=== PATIENT | female | born 1945 | race Caucasian/White ===

== ENCOUNTER 2017-01-08 15:02 | Emergency (ER) | payer MEDICARE, BC ==
[~2017-01-08] VITALS: Ht 172.7 cm; Wt 57.2 kg
[~2017-01-08 15:02] MED LIST: /CIPR75TA OR; /SUCR1TA OR; /THIA10TA OR; ACET-654 PO; ACTIVITY; BACITAB3 PO; BACTROBAN TOP; BENA25TA4 PO; CARA1TAB2 PO; CLIN1CAP5 PO; DIET; EUCECRE2 TOP; FLUO-144 TOP; FOLI1TAB OR; FOLLOW UP; KCL OR; KEFL250C OR; KLOR1TAB69 PO; LACT10SO OR; LASI20TA OR; LEVA750T PO; METF500T PO; MULTIVIT OR; NIZO2SHA TOP; OMEP40CA2 PO; OMEPPOW18 OR; TRAM50TA2 PO; ZYVO100T PO; [UNRECOGNIZED DRUG - REMARK]
[2017-01-08] MEDS ORDERED: LINE600T (15:15)
[2017-01-08 16:30] LABS: BASO % 0.5 % (0.0-1.0); EOS # 0.2 K/mm3 (0.0-0.50); EOS % 3.9 % (0.0-3.0); LARGE UNSTAINED CELL # 0.1 K/mm3 (0.0-0.4); LARGE UNSTAINED CELL % 1.4 % (0.0-4.0); LYMPH # 1.1 K/mm3 (1.5-4.5); LYMPH % 19.7 % (24.0-44.0); MEAN CORPUSCULAR HEMOGLOBIN 29.3 pg (27.0-33.0); MONO # 0.4 K/mm3 (0.0-0.8); MONO % 7.1 % (0.0-5.0); NEUTROPHILS # 3.7 K/mm3 (1.8-7.7); NEUTROPHILS % 67.4 % (36.0-66.0); PLATELET COUNT, AUTOMATED 107 k/mm3 (150-450); RED CELL DISTRIBUTION WIDTH 13.6 % (11.5-14.5); WHITE BLOOD COUNT 5.4 K/mm3 (4.0-10.0)
[2017-01-08 16:41] LABS: ANION GAP 9 MEQ/L (8-16); BLOOD UREA NITROGEN 10 MG/DL (7-18); CALCIUM LEVEL 8.1 MG/DL (8.8-10.2); CARBON DIOXIDE LEVEL 24 MEQ/L (21-32); CHLORIDE LEVEL 104 MEQ/L (98-107); GLOMERULAR FILTRATION RATE > 60.0 (>39); GLUCOSE, FASTING 155 MG/DL (83-110); POTASSIUM SERUM 3.6 MEQ/L (3.5-5.1); SODIUM LEVEL 137 MEQ/L (136-145)
[2017-01-08] MEDS ORDERED: CEFTAROLINE FOSAMIL 600 MG in D5W MINI-BAG PLUS 50 ML IV ONE (16:45)
[2017-01-08] MEDS ORDERED: BACT800T5 PO (18:08)
[2017-01-08] MEDS ORDERED: BACTRIM 160MG/800MG DS TAB PO ONE (18:15)
[2017-01-08 18:20] VITALS: BP 122/63
== END 2017-01-08 18:28 | disposition home or self-care (01) ==
LOC: M ED 15:59
DX: L03.116 Cellulitis of left lower limb (principal); E11.40 Type 2 diabetes mellitus with diabetic neuropathy, unspecified; I87.2 Venous insufficiency (chronic) (peripheral); K21.9 Gastro-esophageal reflux disease without esophagitis; M54.5 Low back pain; K74.60 Unspecified cirrhosis of liver; Z90.49 Acquired absence of other specified parts of digestive tract

== ENCOUNTER → 2017-03-14 | Outpatient (CLI) | payer MEDICARE ==
[~2017-03-14] MED LIST changes: -ACET-654 PO; +ACET1TAB17 PO; +BACITAB PO; -BACITAB3 PO; +BACT800T5 PO; -CARA1TAB2 PO; +CARA1TAB6 PO; +CLIN150C14 PO; -CLIN1CAP5 PO; +LINE600T; -METF500T PO; +METF500T13 PO
--- NOTE | 2017-03-14 12:49 | REP ---
UPPER EXTREMITY DUPLEX VENOUS ULTRASOUND: HISTORY: Venous insufficiency, ulcer at the knee. Chronic venous hypertension left lower extremity. The deep veins are anechoic on two-dimensional scanning and fully compressible. Color flow imaging is homogeneous. Spectral Doppler interrogation demonstrates intact respiratory variation in flow normal manual augmentation of flow. There is no evidence of deep vein thrombosis. REFLUX STUDY: Pulsatile Doppler waveforms are noted in the deep and superficial systems likely related to right heart dysfunction. Minimal reflux is observed in the anterior accessory and collateral vein off the accessory proximally. No other reflux is appreciated. The greater saphenous vein measures 4.9 mm in AP dimension proximally at the saphenofemoral junction, 3.5 mm at midthigh, and 4.5 mm at the knee. The lesser saphenous vein measures 1.3 mm. IMPRESSION: Minimal reflux. Pulsatile venous waveforms question right heart dysfunction. No evidence of deep vein thrombosis. Signed by Owen Jay MD 03/14/2017 12:58 P
== END ==
LOC: M RAD 10:52
PROVIDERS: ATTEND Surgery
DX: I87.312 Chronic venous hypertension (idiopathic) with ulcer of left lower extremity (principal)

== ENCOUNTER → 2017-04-09 | Outpatient (REF) | payer OTHER, BC | LOC: M LAB REF 13:27 | PROVIDERS: ATTEND Surgery | DX: L56.8 Other specified acute skin changes due to ultraviolet radiation (principal) ==

== ENCOUNTER → 2018-04-22 | Outpatient (CLI) | payer MEDICARE ==
[2018-04-22 10:50] LABS: BASO % 0.8 % (0.0-1.0); EOS # 0.3 10^3/uL (0.0-0.50); EOS % 11.7 % (0.0-3.0); HEMATOCRIT 34.6 % (36.0-47.0); HEMOGLOBIN 11.2 g/dl (12.0-15.5); IMMATURE GRANULOCYTE % 0.4 % (0-3.0); LYMPH # 0.9 10^3/uL (1.5-4.5); LYMPH % 37.7 % (24.0-44.0); MEAN CORPUSCULAR HEMOGLOBIN 28.1 pg (27.0-33.0); MEAN CORPUSCULAR HGB CONC 32.4 g/dl (32.0-36.5); MEAN CORPUSCULAR VOLUME 86.7 fl (80.0-96.0); MONO # 0.2 10^3/uL (0.0-0.8); MONO % 9.6 % (0.0-5.0); NEUTROPHILS % 39.8 % (36.0-66.0); RED BLOOD COUNT 3.99 10^6/uL (4.00-5.40); RED CELL DISTRIBUTION WIDTH 13.3 % (11.5-14.5); WHITE BLOOD COUNT 2.4 10^3/uL (4.0-10.0)
[2018-04-22 11:07] LABS: AMMONIA < 10 uMOL/L (<32)
[2018-04-22 11:20] LABS: PLATELET COUNT, AUTOMATED 78 10^3/uL (150-450); POSITIVE DIFF POS FLAG
[2018-04-22 11:21] LABS: IMMATURE PLATELET FRACTION % 3.4 % (0.0-9.6); PLATELET F 2.6
[2018-04-22 11:27] LABS: ALBUMIN 3.7 GM/DL (3.2-5.2); ALBUMIN/GLOBULIN RATIO 0.97 (1.00-1.93); ALKALINE PHOSPHATASE 67 U/L (45-117); ALT/SGPT 19 U/L (12-78); ANION GAP 7 MEQ/L (8-16); AST/SGOT 18 U/L (7-37); BILIRUBIN,TOTAL 0.4 MG/DL (0.2-1.0); BLOOD UREA NITROGEN 19 MG/DL (7-18); CALCIUM LEVEL 9.2 MG/DL (8.8-10.2); CARBON DIOXIDE LEVEL 29 MEQ/L (21-32); CHLORIDE LEVEL 108 MEQ/L (98-107); CHOLESTEROL LEVEL 149 MG/DL (<200); CHOLESTEROL RISK RATIO 2.483 (<5); CREATININE FOR GFR 0.75 MG/DL (0.55-1.30); GLOMERULAR FILTRATION RATE > 60.0 (>39); GLUCOSE, FASTING 124 MG/DL (70-100); HDL CHOLESTEROL 60 MG/DL (>40); LDL CHOLESTEROL 74.6 MG/DL (<100); NON-HDL-C 89 MG/DL; POTASSIUM SERUM 4.5 MEQ/L (3.5-5.1); SODIUM LEVEL 144 MEQ/L (136-145); TOTAL PROTEIN 7.5 GM/DL (6.4-8.2); TRIGLYCERIDES LEVEL 72 MG/DL (<150)
== END ==
LOC: M LAB 09:47
DX: K76.9 Liver disease, unspecified (principal); E11.9 Type 2 diabetes mellitus without complications; Z13.220 Encounter for screening for lipoid disorders
CPT/HCPCS: 82140

== ENCOUNTER 2018-08-04 12:30 | Inpatient (IN) | payer MEDICARE ==
[~2018-08-04] VITALS: Ht 170.2 cm; Wt 53.7 kg
[~2018-08-04 12:30] MED LIST changes: -ACET1TAB17 PO; +ACET1TAB55 PO; +ENOXAPARIN 40 MG/0.4 ML SYRINGE (J1650) SC SCH; -ZYVO100T PO; +ZYVO1TAB PO
[2018-08-04] MEDS ORDERED: SERT25TA PO (12:55)
[2018-08-04 13:27] LABS: INR 1.21; PROTHROMBIN TIME 15.5 SECONDS (12.1-14.4)
[2018-08-04 13:29] LABS: BASO % 0.2 % (0.0-1.0); HEMATOCRIT 35.3 % (36.0-47.0); HEMOGLOBIN 11.2 g/dl (12.0-15.5); LYMPH # 0.5 10^3/uL (1.5-4.5); LYMPH % 8.9 % (24.0-44.0); MEAN CORPUSCULAR HEMOGLOBIN 26.9 pg (27.0-33.0); MEAN CORPUSCULAR HGB CONC 31.7 g/dl (32.0-36.5); MEAN CORPUSCULAR VOLUME 84.7 fl (80.0-96.0); MONO # 0.6 10^3/uL (0.0-0.8); MONO % 10.7 % (0.0-5.0); NEUTROPHILS # 4.5 10^3/uL (1.8-7.7); NEUTROPHILS % 79.3 % (36.0-66.0); PLATELET COUNT, AUTOMATED 128 10^3/uL (150-450); RED BLOOD COUNT 4.17 10^6/uL (4.00-5.40); WHITE BLOOD COUNT 5.7 10^3/uL (4.0-10.0)
[2018-08-04 13:39] LABS: ALBUMIN 2.9 GM/DL (3.2-5.2); ALT/SGPT 15 U/L (12-78); BILIRUBIN,TOTAL 0.6 MG/DL (0.2-1.0); BLOOD UREA NITROGEN 22 MG/DL (7-18); CALCIUM LEVEL 8.9 MG/DL (8.8-10.2); CARBON DIOXIDE LEVEL 28 MEQ/L (21-32); CHLORIDE LEVEL 110 MEQ/L (98-107); GLOMERULAR FILTRATION RATE > 60.0 (>39); GLUCOSE, FASTING 543 MG/DL (70-100); POTASSIUM SERUM 3.6 MEQ/L (3.5-5.1); SODIUM LEVEL 149 MEQ/L (136-145); TOTAL PROTEIN 7.2 GM/DL (6.4-8.2)
[2018-08-04] MEDS: MORPHINE 2 MG/ML 1ML SYRINGE (J2270) IV PRN ×2 (13:40→14:41)
[2018-08-04] MEDS ORDERED: ONDANSETRON 4MG/2ML VIAL (J2405) IV ONE (13:45)
[2018-08-04] MEDS ORDERED: DIPH25CA PO (13:46)
[2018-08-04] MEDS ORDERED: POTA1TAB23 PO (13:46)
[2018-08-04] MEDS ORDERED: NS 1,000 ML IV SCH (14:00)
[2018-08-04] MEDS ORDERED: HumuLIN R (REGULAR) INSULIN (NovoLIN R) **100U/ML** PER UNIT IV ONE (14:00)
--- NOTE | 2018-08-04 14:07 | REP ---
Chest x-ray: Single AP view. History: Question preop. Comparison chest x-ray: July 08, 2014. Findings: There is diffuse osteopenia. Heart size is normal. The aorta is calcific and a little tortuous. The lungs are symmetrically aerated. No infiltrate is seen. There is minimal linear fibrosis in the apices bilaterally. Pleural angles are sharp. Impression: No acute disease. Mild biapical fibrotic changes. Electronically Signed by Owen Jay MD 08/04/2018 04:18 P
--- NOTE | 2018-08-04 14:08 | REP ---
Right hip and pelvis: Four views. History: Trauma. Findings: Four views of the pelvis and right hip are presented. Bony pelvic ring is intact. No left hip fracture is seen. There is diffuse osteopenia. Sacrum and SI joints are intact. There is an angulated intertrochanteric fracture of the right hip with apex anterior angulation and apex lateral angulation. There is some comminution and slight override. Vascular calcification is noted. Impression: Comminuted angulated fracture intertrochanteric segment right hip. Osteoporosis. Electronically Signed by Owen Jay MD 08/04/2018 04:19 P
[2018-08-04] MEDS ORDERED: DEXTROSE 50% 50 ML SYRINGE IV PRN (15:00)
[2018-08-04] MEDS ORDERED: GLUCAGON FOR INJ 1 MG VIAL (J1610) SC PRN (15:00)
[2018-08-04] MEDS ORDERED: GLUCOSE 4 GM CHEW TABLET PO PRN (15:00)
--- NOTE | 2018-08-04 16:14 | REP ---
CT right hip without contrast: History: Trauma. Comparison is made with today's radiographs showing a comminuted intertrochanteric fracture. Technique: Helical scanning is acquired. 3 mm axial images are reformatted. Coronal and sagittal multiplanar re-formation images are generated reviewed. 3-D surface rendered images are generated and reviewed. CT findings: There is a comminuted intertrochanteric fracture of the right hip with significant varus deformity. Some impaction. There are greater and lesser trochanteric fracture fragments. There is a bases cervical component to the fracture as well. The remainder the femoral head and neck appear as an intact fragment. There is mild osteoarthritis at the hip articulation. There is associated soft-tissue swelling. No pelvic fracture is appreciated. Impression: Comminuted intertrochanteric fracture with impaction and varus. Electronically Signed by Owen Jay MD 08/04/2018 04:06 P
--- NOTE | 2018-08-04 16:59 | REP ---
REASON FOR EXAM: Pain after trauma. Only two views of the knee were attempted and there is no AP view only an oblique and lateral view with the predominant feature of the radiograph being femoral rather than the knee joint. As such, a tibial plateau fracture can not be ruled out by this exam since the knee joint was not in the center of the radiograph. Two limited views suggest chronic changes. There is a fabella. IMPRESSION:Exam limitations and findings as described above. Four views of the knee with the knee being the center of the radiograph recommended. Electronically Signed by Remberto Gupta DO 08/04/2018 06:15 P
[2018-08-04] MEDS ORDERED: HumaLOG INSULIN (NovoLOG) PER UNIT SC SCH (17:30)
--- NOTE | 2018-08-04 18:45 | ECGEPIP ---
Stationary ECG Study [facility] - ED Test Date: 2018-08-04 Pat Name: SAMSON SINGH Department: Room: [place] [address] Gender: F Extractions Technologist: nevaeh : 1945 Requested By: Odessa Roger Order Number: [id number] Reading MD: Connor Kruger Measurements Intervals Fiatt Rate: 88 P: 85 [place]: 126 QRS: 72 QRSD: 82 T: 29 QT: 372 QTc: 452 Interpretive Statements SINUS RHYTHM NONSPECIFIC T-WAVE ABNORMALITY NO PRIORS FOR COMPARISON Electronically Signed On 08-04-2018 18:45:15 EST by Connor Kruger
[2018-08-04 22:00] VITALS: BP 147/62
[2018-08-04] MEDS: NS 0.45% 1,000 ML IV SCH (22:08)
[2018-08-04] MEDS: MORPHINE 4 MG/ML 1ML VIAL/SYRINGE (J2270) IV PRN (22:31)
[2018-08-05] VITALS (9 sets, daily range): BP systolic 112–155; BP diastolic 48–93
[2018-08-05] MEDS: NS 0.45% 1,000 ML IV SCH ×4 (02:15→23:57)
[2018-08-05] MEDS: HumaLOG INSULIN (NovoLOG) PER UNIT SC SCH ×4 (05:56→23:57)
[2018-08-05] MEDS: MORPHINE 4 MG/ML 1ML VIAL/SYRINGE (J2270) IV PRN ×4 (05:56→23:13)
[2018-08-05] MEDS ORDERED: VANCOMYCIN HCL 1,000 MG, VIAL MATE ADAPTER 1 EACH in D5W 250 ML IV SCH (06:00)
[2018-08-05 06:52] LABS: BASO % 0.1 % (0.0-1.0); EOS % 0.1 % (0.0-3.0); HEMATOCRIT 31.1 % (36.0-47.0); HEMOGLOBIN 9.9 g/dl (12.0-15.5); LYMPH # 0.9 10^3/uL (1.5-4.5); LYMPH % 12.1 % (24.0-44.0); MEAN CORPUSCULAR HEMOGLOBIN 27.3 pg (27.0-33.0); MEAN CORPUSCULAR HGB CONC 31.8 g/dl (32.0-36.5); MEAN CORPUSCULAR VOLUME 85.9 fl (80.0-96.0); MONO # 0.6 10^3/uL (0.0-0.8); MONO % 7.7 % (0.0-5.0); NEUTROPHILS # 5.6 10^3/uL (1.8-7.7); NEUTROPHILS % 79.6 % (36.0-66.0); PLATELET COUNT, AUTOMATED 100 10^3/uL (150-450); RED BLOOD COUNT 3.62 10^6/uL (4.00-5.40); WHITE BLOOD COUNT 7.1 10^3/uL (4.0-10.0)
--- NOTE | 2018-08-05 06:52 | HPE ---
DATE OF ADMISSION: 08/04/2018 This a 73-year-old female with past medical history of diabetes, gastroesophageal reflux disease (GERD), and depression who presents to the emergency room after sustaining a fall on the day of admission. She fell on her right hip and sustained a right laceration and was brought to the ER for evaluation. In the ER she had an x-ray which showed a right intertrochanteric fracture. Incidentally, the patient was also found to be hypernatremic and started on IV fluids. Orthopedics was called and the patient will be getting an open reduction internal fixation (ORIF) done today. The patient at this time is awake, alert and oriented times three and she only complains of pain in her right hip. She denies any chest pain or shortness of breath. PAST MEDICAL HISTORY: Diabetes. Depression. GERD. PAST SURGICAL HISTORY: Cholecystectomy. ALLERGIES: She had drug allergies to: 1. BACITRACIN. 2. CIPROFLOXACIN. 3. CLINDAMYCIN. 4. NEOMYCIN. 5. PENICILLIN. FAMILY HISTORY: Noncontributory. SOCIAL HISTORY: The patient denies tobacco, alcohol or illicit drugs. HOME MEDICATIONS: - Tylenol as needed - diphenhydramine 25 mg orally every 6 hours as needed - metformin 500 mg orally twice daily - omeprazole 40 mg orally daily - potassium 10 mEq orally daily - sertraline 25 mg orally daily - sucralfate 1 gram orally a.c. REVIEW OF SYSTEMS: Negative in all 10 major systems except what has been mentioned in the history of present illness. VITALS: Blood pressure is 139/63, heart rate is 88 and regular, respiratory rate is 16, temperature 97, oxygen saturation is 96% on room air. Head is atraumatic, normocephalic. Neck supple, no jugular venous distention (JVD). Lungs are clear to auscultation. S1 and S2 audible, no murmurs appreciated. Abdomen soft, positive bowel sounds. There is no pedal edema. Skin examination: On the left leg there are multiple healing ulcers, which is chronic with erythema surrounding the ulcers. There is also a right elbow skin tear. Neurologic exam: Patient awake, alert and oriented times three. LABS: WBC 5.7, hemoglobin 11.2, hematocrit 35.3, platelets 128,000. Sodium 149, potassium 3.6, chloride 110, CO2 28, BUN 22, creatinine 0.8, glucose is 545. 12 lead EKG shows normal sinus rhythm and no acute ST abnormalities. PT is 15.5, INR is 1.21. IMPRESSION: 1. Right intertrochanteric fracture. 2. Hypernatremia. 3. Left leg cellulitis. PLAN: Patient is to be admitted to the medical surgical floor. Will start the patient on half normal saline at 100 mL/hour for the hypernatremia. For the cellulitis I am going to start IV doxycycline 100 mg IV twice a day and will give her morphine 2 mg IV every 2 hours as needed for pain. Orthopedics has been consulted and the patient is going to the operating room today. She is medically optimized and moderate risk for a moderate risk procedure. Postoperatively will continue her preadmission medications.
[2018-08-05 07:02] LABS: BLOOD UREA NITROGEN 16 MG/DL (7-18); CALCIUM LEVEL 8.2 MG/DL (8.8-10.2); CARBON DIOXIDE LEVEL 24 MEQ/L (21-32); CHLORIDE LEVEL 114 MEQ/L (98-107); CREATININE FOR GFR 0.55 MG/DL (0.55-1.30); GLOMERULAR FILTRATION RATE > 60.0 (>39); GLUCOSE, FASTING 295 MG/DL (70-100); POTASSIUM SERUM 3.4 MEQ/L (3.5-5.1); SODIUM LEVEL 147 MEQ/L (136-145)
[2018-08-05] MEDS ORDERED: ceFAZolin 1GM INJ (J0690 PER 500MG) As Ordered ONE (07:28)
[2018-08-05] MEDS ORDERED: KETAMINE HCL 200 MG/20 ML VIAL As Ordered ONE ×2 (08:13→15:31)
[2018-08-05] MEDS ORDERED: MIDAZOLAM INJ 2 MG/2 ML VIAL (J2250) As Ordered ONE (08:13)
[2018-08-05] MEDS ORDERED: fentaNYL 100 MCG/2 ML INJECTION (J3010) As Ordered ONE (08:13)
[2018-08-05] MEDS ORDERED: PHENYLEPHRINE INJ 10MG/ML VIAL (J2370) As Ordered ONE (08:14)
[2018-08-05] MEDS ORDERED: ePHEDrine SULFATE 25 MG/5 ML(5MG/ML) SYRINGE As Ordered ONE (08:21)
[2018-08-05] MEDS ORDERED: PHENYLephrine HCL 500 MCG/5 ML (100MCG/ML) SYRINGE (J2370) As Ordered ONE (08:21)
[2018-08-05] MEDS ORDERED: PROPOFOL 200 MG/20 ML VIAL As Ordered ONE (08:40)
[2018-08-05] MEDS ORDERED: LIDOCAINE 2% INJ 100 MG/5 ML SDV (FOR ANES.) As Ordered ONE (08:40)
--- NOTE | 2018-08-05 09:14 | REP ---
C-ARM VIEWS RIGHT HIP: Six intraoperative C-arm views of the right hip are performed during placement of an intramedullary deshawn, proximal anchor and metallic screw for a fracture of the proximal right femur. The structures are well aligned. 1 minute 6 seconds fluoroscopy time utilized for the procedure. Electronically Signed by Bari Cobos MD 08/05/2018 07:43 P
--- NOTE | 2018-08-05 09:16 | CR ---
DATE OF CONSULTATION: 08/04/2018 REASON FOR CONSULTATION: Right intertrochanteric hip fracture. HISTORY OF PRESENT ILLNESS: This is a 73-year-old elderly female who took a mechanical fall dealing with her small dog at her apartment here in [place], fell and had pain and deformity, unable to ambulate because of pain and soreness in the right leg and hip area. No loss of consciousness. Did not strike her head of any significant degree. She was transferred by emergency medical services (EMS) to [facility] and evaluated by Dr. Kulkarni and found to have a hip fracture, and I was called to treat the hip fracture and the hospitalist will be admitting her because of her other multiple medical comorbidities. She only complains of soreness and pain on the right hip area. PAST MEDICAL HISTORY: Significant for chronic liver disease and cirrhosis, esophageal varices, chronic dermatitis in both lower extremities from venous stasis ulcerations, diabetes, anxiety disorder an anemia. PAST SURGICAL HISTORY: She has had multiple debridements from the wound clinic over the past year and a half ago with Dr. Burgos. Cholecystectomy. MEDICATIONS CURRENTLY: - Benadryl - fluocinolone - ketoconazole - linezolid - metformin - omeprazole - potassium - inhalers - Bactrim SOCIAL HISTORY: She does not smoke. She does not drink alcohol presently. She lives alone. Her only family members are two cousins in the [facility]. She is single. She has a supportive community at her apartment complex here in [place]. Dr. Parra cares for her medically. REVIEW OF SYSTEMS: Health survey is otherwise unremarkable, other than she has had a history of skin cancer cared for by Dr. Radha Salazar in the past. FAMILY HISTORY: She has not been . Does not have any children. Mother at the age of 91 with chronic obstructive pulmonary disease (COPD). Father at age 42 from throat cancer. PHYSICAL EXAMINATION: When I examined her, she is an elderly pleasant female, quite alert and oriented. There is no temperature. Blood pressure is 146/63. Pulse of 94. Respirations 21, and most recently 16. HEENT exam is benign. She wears glasses. Neck was nontender. She can elevate her arms up overhead without obvious pain, deformity or crepitance involving her shoulders, arms, elbows, forearms, wrists or hands. There is a small scratch and/or abrasion on the lateral aspect of the right elbow. Right leg is held adducted and clearly shortened, and internally rotated actually. She has a strong dorsalis pedis pulse dorsally with normal sensation to light touch dorsum and on the plantar surface of her foot. Her left foot has multiple areas of full thickness granulating wounds of various stages, but there is no pitting edema in her left lower extremity. There is some mild erythema around the ankle wounds. I asked her if she has a history of neuropathy and she says not, and otherwise when I touch her right lower extremity she feels the sensation is intact, but there is evidence of brawny discoloration and brownish pigmentation secondary to having venous stasis ulcerations and venous stasis dermatitis in the past in the right lower extremity. Her x-rays of the right hip show a very comminuted displaced, shortened intertrochanteric fracture of the right hip. CT with reconstruction show the same. LABORATORY STUDIES: White count of 5.7, hematocrit 35.3, platelets 128. ProTime 15.5, INR 1.21. Chemistries: Sodium 149, potassium 3.6, chloride 110, BUN 22, creatinine 0.8, sugar is elevated at 543. Liver function tests appear to be within normal limits. Bilirubin of 0.6, AST of 7, ALT 15, alkaline phosphatase of 84, albumin was a bit low at 2.9, total protein 7.2. I discussed this with the hospitalist, Dr. Engel and he feels that she should be medically optimized pending final review of the rest of her laboratory studies for surgery. She is not on any anticoagulation. IMPRESSION: Highly comminuted right intertrochanteric hip fracture in an elderly pleasant female. I discussed the treatment options for her and we normally recommend we fix these type of fractures for comfort and for ability to be early mobilized out of bed to prevent the sequela of prolonged bed rest, but doing surgery does carry the risk however of having surgery, including infection, damage to nerves and blood vessels, phlebitis, embolism, heart attack, , anesthetic complications, amongst others. She understands that. She would like to get this cared for an is anxious to get it fixed because she is quite uncomfortable so we plan to proceed. She signed the consent form for the surgery and potential need for blood transfusion, which I discussed with her as well. One view of the plain films x-rays are discussed with her. There may be a small area of lytic area or it could be just the fracture orientation, but if there is any question I told her we may be sending some of the bone marrow from that arrow to the pathologist to make sure it is not a pathologic fracture and I will be reviewing that x-ray with the radiologist as well.
[2018-08-05] MEDS ORDERED: LR 1,000 ML IV SCH (09:30)
[2018-08-05] MEDS ORDERED: HYDROMORPHONE HCL 0.5 MG/ 0.5 ML SYRINGE (J1170 PER 1) IV PRN (09:30)
[2018-08-05] MEDS ORDERED: ONDANSETRON 4MG/2ML VIAL (J2405) IV PRN (09:30)
[2018-08-05] MEDS ORDERED: PERCOCET 5MG/325MG TAB PO PRN (09:30)
[2018-08-05] MEDS ORDERED: fentaNYL 100 MCG/2 ML INJECTION (J3010) IV PRN (09:30)
[2018-08-05] MEDS ORDERED: VANCOMYCIN HCL 1,000 MG, VIAL MATE ADAPTER 1 EACH in D5W 250 ML IV ONE (11:00)
--- NOTE | 2018-08-05 11:20 | PHACANCOPD ---
PHARMACY VANCOMYCIN DOSING Pt Demographics Demographics Patient Age:73 , Weight:53.700 , Gender: female Adjusted Body Weight Date: 08/05/18, Adjusted Body Weight: Kg Events Past 24 Hours Events Past 24 Hours: YES: Pending Diagnostics; NO: Dialysis, Diuretic Therapy, Change in CrCl, Fever, Elevation in WBC, Pending Procedures, Other Vancomycin Vancomycin Target Ranges: 15-20 mcg/ml Vancomycin Load Y/N: Yes Load Dose Date Time Vancomycin Load Dose: 1G Date: 08/05 Time: 1100 Vancomycin Dose Date: 08/05/18. Current Vancomycin Dose: Intermittent Dosing?: No Labs Labs Vital Signs Label Value Date Time Patient Temperature 97.2 degrees F 08/05/18 0925 Temperature Source Temporal 08/05/18 0925 Patient Temperature 97.8 degrees F 08/05/18 0855 Temperature Source Temporal 08/05/18 0855 Patient Temperature 98.6 degrees F 08/05/18 0600 Temperature Source Temporal 08/05/18 0600 Item Value Date Time White Blood Count 7.1 10^3/uL 08/05/18 0621 White Blood Count 5.7 10^3/uL 08/04/18 1251 Creatinine 0.80 MG/DL 08/04/18 1251 Creatinine 0.55 MG/DL 08/05/18 0621 Micro Microbiology 08/04/18 Blood Culture, Received Pending 08/04/18 Blood Culture - Preliminary, Resulted 08/04/18 Wound Culture, Received Pending Creatinine Clearance Date:08/05/18. Creatinine Clearance: . Assessment and Plan Maintaining Current Dose?: Yes Reason for dose change: No Dose Change Pharmacist Note Pharmacist Note Date: 08/05/18. Pharmacist note: Pt's preliminary blood test resulted with gram (+) rods, chains, and clusters. Gram+ clusters could be a sign of staph infxn. Pt. placed on Vanco for MRSA coverage until cultures finalized. Pt. has no MRSA hx with us but was on Vanco back in 2014. I loaded the patient with 1G Vanco @1100 followed by Vanco 750mg IV Q12H@2300. I have scheduled a trough before the 3rd dose. We will continue to monitor and adjust dose as needed. JADE FRIEDMAN PHARMACY Aug 05, 2018 11:20
--- NOTE | 2018-08-05 17:09 | RO ---
DATE OF PROCEDURE: 08/05/2018 PREPROCEDURE DIAGNOSIS: Right intertrochanteric hip fracture. POSTPROCEDURE DIAGNOSIS: Right intertrochanteric hip fracture. PROCEDURE: Open reduction internal fixation (ORIF) right hip fracture with a short right trochanteric femoral nail. SURGEON: Dr. Paras Lainez SHEET [employer]OP FOREMAN: Yasmine Telles ANESTHESIA: Spinal. COMPLICATIONS: None. ESTIMATED BLOOD LOSS: 75 mL. DESCRIPTION OF PROCEDURE: She is already on intravenous (IV) doxycycline. She was taken to the operating room. A spinal anesthetic was induced, placed on the fracture table, and after appropriate time-out fracture was reduced on the fracture table under fluoroscopic guidance. Then, the right hip area was carefully prepped and draped in the usual sterile fashion. A second time-out was then performed. Then, a small one inch incision was made proximal to the greater trochanter. Bovie cautery was used to coagulate crossing vessels down to tensor fascia. Awl was placed on the greater trochanter, and the ball-tip guide deshawn placed down, confirmed in both AP and lateral planes, there was good position. The proximal reamer was utilized and then the short nail inserted. The drill guide for the cephalomedullary part of the implant was then placed after making an incision in the skin with a long knife handle and advancing the sleeve to the lateral femoral cortex and the guide pin drilled through the center of the femoral head, confirmed on the AP and lateral planes. Measured at 90 mm, reamed to 90 mm, the 90 mm cephalomedullary screw was placed and locked proximally. Then, the drill sleeve was then placed for the distal interlock screw. A small skin incision was made. The drill sleeve advanced to the lateral femoral cortex. Then, under fluoroscopic imaging, the drill was drilled, measured at 34 mm. A 34 mm screw was placed. We confirmed there was good position of the fracture and the hardware in the AP and lateral planes on the fluoroscope. We then irrigated the wounds, closed the tensor fascia with interrupted #1 PDS suture, subdermal tissues were closed with interrupted #2-0 PDS sutures, skin was closed with khnag, covered by Adaptic and OpSite dressings. Then, she was transferred off the fracture table to the recovery room in stable condition. There were no intraoperative complications.
--- NOTE | 2018-08-05 17:21 | IPN ---
DATE: 08/05/2018 SUBJECTIVE: The patient is seen and examined in the room today after the hip replacement. The patient denies any acute complaints. No events are reported. OBJECTIVE: VITAL SIGNS: Temperature is 97.9, pulse is 77, respiratory rate 16, blood pressure is 128/56, pulse oximetry is 100% with 2 liters nasal cannula. GENERAL: The patient is alert and awake, no signs of acute distress. HEENT: Positive bilateral temporal wasting. LUNGS: Clear to auscultation bilaterally. CARDIOVASCULAR: Positive S1, S2, regular rate. ABDOMEN: Soft, nontender. Bowel sounds present. EXTREMITIES: Positive ulcer mainly on the left lower extremity. There is some dry discharge noted on the dressing. LABORATORY DATA: WBC is 7.1, hemoglobin 9.9, hematocrit 31.1, platelet count is 100. Sodium is 147, potassium 3.4, chloride is 114, carbon dioxide 24, BUN 16, creatinine 0.55, GRF greater than 60, fasting glucose 295, calcium is 8.2. ASSESSMENT AND PLAN: 1. Right hip fracture, status post hip repair on 08/05/2018. Defer the pain medication, diet, activity level and anticoagulation to the orthopedic team. 2. Multiple ulcers. Continue to monitor. The patient has a foam dressing in place. 3. Diabetes, on insulin. 4. Possible bacteremia. One of the two sets of blood cultures, preliminary, showed gram-positive cocci in pairs and chains and clusters. Empirically, the patient has been on the vancomycin. 5. Hypokalemia. Supplement accordingly. 6. Depression. On Zoloft. 7. Gastroesophageal reflux disease. Continue omeprazole. 8. Deep vein thrombosis (DVT) prophylaxis. Per orthopedic team.
[2018-08-05] MEDS ORDERED: POTASSIUM CHLORIDE 10 MEQ SR TABLET PO ONE (18:00)
[2018-08-05] MEDS: RIVAROXABAN 10 MG TAB (XARELTO) PO SCH (18:14)
[2018-08-05] MEDS: VANCOMYCIN HCL 750 MG, VIAL MATE ADAPTER 1 EACH in D5W 250 ML IV SCH (23:10)
[2018-08-06 02:00] VITALS: BP 139/65
[2018-08-06] MEDS: MORPHINE 4 MG/ML 1ML VIAL/SYRINGE (J2270) IV PRN (05:59)
[2018-08-06 06:42] LABS: HEMATOCRIT 26.5 % (36.0-47.0); HEMOGLOBIN 8.5 g/dl (12.0-15.5); MEAN CORPUSCULAR HEMOGLOBIN 27.1 pg (27.0-33.0); MEAN CORPUSCULAR HGB CONC 32.1 g/dl (32.0-36.5); MEAN CORPUSCULAR VOLUME 84.4 fl (80.0-96.0); RED BLOOD COUNT 3.14 10^6/uL (4.00-5.40); WHITE BLOOD COUNT 8.2 10^3/uL (4.0-10.0)
[2018-08-06 06:58] LABS: BLOOD UREA NITROGEN 10 MG/DL (7-18); CHLORIDE LEVEL 104 MEQ/L (98-107); CREATININE FOR GFR 0.42 MG/DL (0.55-1.30); GLOMERULAR FILTRATION RATE > 60.0 (>39); GLUCOSE, FASTING 207 MG/DL (70-100); POTASSIUM SERUM 3.4 MEQ/L (3.5-5.1); SODIUM LEVEL 138 MEQ/L (136-145)
[2018-08-06 06:59] LABS: CALCIUM LEVEL 7.7 MG/DL (8.8-10.2); CARBON DIOXIDE LEVEL 26 MEQ/L (21-32); MAGNESIUM LEVEL 1.4 MG/DL (1.8-2.4)
[2018-08-06 07:07] LABS: PLATELET COUNT, AUTOMATED 94 10^3/uL (150-450)
[2018-08-06] MEDS: MOM 30ML SUSPENSION UDC PO SCH (08:05)
[2018-08-06] MEDS: OMEPRAZOLE 20 MG CAP PO SCH (08:06)
[2018-08-06] MEDS: HumaLOG INSULIN (NovoLOG) PER UNIT SC SCH ×3 (08:06→18:19)
[2018-08-06] MEDS: SERTRALINE HCL 25 MG TABLET PO SCH (08:06)
[2018-08-06] MEDS: SENOKOT S TAB PO SCH ×2 (08:06→21:29)
[2018-08-06] MEDS: MIRALAX *UNIT DOSE* 17GM PACKET PO SCH ×2 (08:07→16:13)
[2018-08-06] MEDS ORDERED: PERCOCET 5MG/325MG TAB PO PRN (08:30)
[2018-08-06] MEDS ORDERED: POTASSIUM CHLORIDE 10 MEQ SR TABLET PO ONE (09:00)
[2018-08-06] MEDS: MAGNESIUM OXIDE 400 MG TAB (MAG-OX) PO SCH ×2 (09:16→21:30)
[2018-08-06] MEDS: PERCOCET 5MG/325MG TAB PO PRN ×2 (09:17→21:31)
[2018-08-06] MEDS: VANCOMYCIN HCL 750 MG, VIAL MATE ADAPTER 1 EACH in D5W 250 ML IV SCH (11:00)
[2018-08-06] MEDS: VANCOMYCIN HCL 1,000 MG, VIAL MATE ADAPTER 1 EACH in D5W 250 ML IV SCH ×2 (11:35→22:16)
[2018-08-06] MEDS: EUCERIN 120GM CREAM TOP SCH ×2 (12:59→21:00)
[2018-08-06 14:00] VITALS: BP 116/77
--- NOTE | 2018-08-06 17:16 | IPNPDOC ---
Text Note Date of Service The patient was seen on 08/06/18. NOTE SUBJECTIVE: The patient is seen and examined in the room today. Patient states her pain is under control. No fever or chill. The patient denies any acute complaints. OBJECTIVE: VITAL SIGNS: Listed below. GENERAL: The patient is alert and awake, no signs of acute distress. HEENT: Positive bilateral temporal wasting. LUNGS: Clear to auscultation bilaterally. CARDIOVASCULAR: Positive S1, S2, regular rate. ABDOMEN: Soft, nontender. Bowel sounds present. EXTREMITIES: Positive ulcer mainly on the left lower extremity. There is some dry discharge noted on the form dressing. LABORATORY DATA: Listed below. ASSESSMENT AND PLAN: #. Right hip fracture - status post hip repair on 08/05/2018. Defer the pain medication, diet, activity level and anticoagulation to the orthopedic team. - Continue physical therapy. Patient may need rehab. #. Multiple ulcers. Continue to monitor. The patient has a foam dressing in place. #. Diabetes - On insulin. On consistent carbohydrate diet. #. Positive blood culture. One of the two sets of blood cultures from 08/04/18 is positive. Preliminary showed gram-positive cocci in pairs and chains and clusters. Empirically, the patient has been on the vancomycin. Repeated blood culture from 08/05/18 remained negative. # Hypomagnesemia. - Supplement as needed. #. Hypokalemia. Supplement accordingly. #. Depression. On Zoloft. #. Gastroesophageal reflux disease. Continue omeprazole. #. Deep vein thrombosis (DVT) prophylaxis. Per orthopedic team. On Xarelto. VS,Fishbone, I+O VS, Fishbone, I+O Laboratory Tests 08/06/18 06:13 Red Blood Count 3.14 L, Mean Corpuscular Volume 84.4, Mean Corpuscular Hemoglobin 27.1, Mean Corpuscular Hemoglobin Concent 32.1, Red Cell Distribution Width 14.6 H, Calcium Level 7.7 L Vital Signs Date Time Temp Pulse Resp B/P (MAP) Pulse Ox O2 Delivery O2 Flow Rate FiO2 08/06/18 14:00 97.1 94 16 116/77 (90) 97 Room Air 08/06/18 05:59 1.0 I&O- Last 24 Hours up to 6 AM 08/06/18 05:59 Intake Total 3795 ml Output Total 1200 ml Balance 2595 ml SUNG,HUYNH DO Aug 06, 2018 17:15
[2018-08-06] MEDS: RIVAROXABAN 10 MG TAB (XARELTO) PO SCH (18:19)
[2018-08-06] MEDS ORDERED: FLEET ENEMA PR ONE (20:00)
[2018-08-06] MEDS ORDERED: HumaLOG INSULIN (NovoLOG) PER UNIT SC SCH (21:00)
[2018-08-06 22:00] VITALS: BP 124/63
[2018-08-07] MEDS: PERCOCET 5MG/325MG TAB PO PRN (05:26)
[2018-08-07 06:00] VITALS: BP 116/57
[2018-08-07 06:19] LABS: HEMATOCRIT 25.8 % (36.0-47.0); HEMOGLOBIN 8.3 g/dl (12.0-15.5); MEAN CORPUSCULAR HEMOGLOBIN 27.6 pg (27.0-33.0); MEAN CORPUSCULAR HGB CONC 32.2 g/dl (32.0-36.5); MEAN CORPUSCULAR VOLUME 85.7 fl (80.0-96.0); RED BLOOD COUNT 3.01 10^6/uL (4.00-5.40); WHITE BLOOD COUNT 6.2 10^3/uL (4.0-10.0)
[2018-08-07 06:42] LABS: BLOOD UREA NITROGEN 11 MG/DL (7-18); CALCIUM LEVEL 7.6 MG/DL (8.8-10.2); CARBON DIOXIDE LEVEL 29 MEQ/L (21-32); CHLORIDE LEVEL 102 MEQ/L (98-107); CREATININE FOR GFR 0.57 MG/DL (0.55-1.30); GLOMERULAR FILTRATION RATE > 60.0 (>39); GLUCOSE, FASTING 217 MG/DL (70-100); HEMOGLOBIN A1c 11.8 %; MAGNESIUM LEVEL 1.8 MG/DL (1.8-2.4); POTASSIUM SERUM 3.9 MEQ/L (3.5-5.1); SODIUM LEVEL 137 MEQ/L (136-145)
[2018-08-07 06:48] LABS: PLATELET COUNT, AUTOMATED 74 10^3/uL (150-450)
[2018-08-07] MEDS: OMEPRAZOLE 20 MG CAP PO SCH (08:16)
[2018-08-07] MEDS: MAGNESIUM OXIDE 400 MG TAB (MAG-OX) PO SCH (08:16)
[2018-08-07] MEDS: SENOKOT S TAB PO SCH (08:16)
[2018-08-07] MEDS: SERTRALINE HCL 25 MG TABLET PO SCH (08:16)
[2018-08-07] MEDS: HumaLOG INSULIN (NovoLOG) PER UNIT SC SCH ×2 (08:17→12:21)
[2018-08-07] MEDS: MOM 30ML SUSPENSION UDC PO SCH (08:17)
[2018-08-07] MEDS: MIRALAX *UNIT DOSE* 17GM PACKET PO SCH (08:17)
[2018-08-07] MEDS: EUCERIN 120GM CREAM TOP SCH (08:17)
[2018-08-07] MEDS ORDERED: XARE10TA PO (08:51)
[2018-08-07] MEDS ORDERED: PERC5TAB12 PO (08:53)
[2018-08-07] MEDS ORDERED: SANTYL OINT 30GM TOP SCH (09:00)
--- NOTE | 2018-08-07 11:08 | PHACANCOPD ---
PHARMACY VANCOMYCIN DOSING Pt Demographics Demographics Patient Age:73 , Weight:53.700 , Gender: female Adjusted Body Weight Date: 08/05/18, Adjusted Body Weight: Kg Events Past 24 Hours Events Past 24 Hours: YES: Change in CrCl; NO: Dialysis, Diuretic Therapy, Fever, Elevation in WBC, Pending Diagnostics, Pending Procedures, Other Vancomycin Vancomycin Target Ranges: 15-20 mcg/ml Vancomycin Load Y/N: Yes Load Dose Date Time Vancomycin Load Dose: 1G Date: 08/05 Time: 1100 Vancomycin Dose Date: 08/05/18. Current Vancomycin Dose: Intermittent Dosing?: No Labs Labs Vital Signs Label Value Date Time Patient Temperature 97.9 degrees F 08/07/18 0600 Temperature Source Temporal 08/07/18 0600 Patient Temperature 98.7 degrees F 08/06/18 2200 Temperature Source Temporal 08/06/18 2200 Patient Temperature 97.1 degrees F 08/06/18 1400 Temperature Source Temporal 08/06/18 1400 Item Value Date Time White Blood Count 6.2 10^3/uL 08/07/18 0604 White Blood Count 8.2 10^3/uL 08/06/18 0613 White Blood Count 7.1 10^3/uL 08/05/18 0621 Creatinine 0.57 MG/DL 08/07/18 0604 Creatinine 0.42 MG/DL L 08/06/18 0613 Creatinine 0.55 MG/DL 08/05/18 0621 Vancomycin Level Trough 12.3 UG/ML 08/07/18 1008 Vancomycin Level Trough 7.8 UG/ML L 08/06/18 0957 Micro Microbiology 08/06/18 Blood Culture - Preliminary, Resulted No growth after 24 hours . All specim... 08/04/18 Blood Culture - Preliminary, Resulted No Growth after 48 hours. All Specime... 08/04/18 Blood Culture - Preliminary, Resulted Streptococcus Parasanguinis 08/04/18 Wound Culture - Final, Complete Staphylococcus Sp Coag Neg Staphylococcus Aureus Creatinine Clearance Date:08/05/18. Creatinine Clearance: . Assessment and Plan Maintaining Current Dose?: Yes Reason for dose change: No Dose Change Pharmacist Note Pharmacist Note 08/07/18: Trough today after 2 doses of Vanco 1G Q12H resulted at 12.3mcg/ml. Cultures grew MSSA and Staph Coag(-) RANDELL 1. I feel this pt is going to continue to accumulate. I have scheduled another trough for tomorrow to make sure pt is accumulating. We will continue to monitor and adjust dose as needed. Date: 08/05/18. Pharmacist note: Pt's preliminary blood test resulted with gram (+) rods, chains, and clusters. Gram+ clusters could be a sign of staph infxn. Pt. placed on Vanco for MRSA coverage until cultures finalized. Pt. has no MRSA hx with us but was on Vanco back in 2014. I loaded the patient with 1G Vanco @1100 followed by Vanco 750mg IV Q12H@2300. I have scheduled a trough before the 3rd dose. We will continue to monitor and adjust dose as needed. JADE FRIEDMAN PHARMACY Aug 07, 2018 11:08
[2018-08-07] MEDS: VANCOMYCIN HCL 1,000 MG, VIAL MATE ADAPTER 1 EACH in D5W 250 ML IV SCH (11:14)
[2018-08-07] MEDS ORDERED: LINE600T PO (12:29)
[2018-08-07] MEDS ORDERED: MAGN400C PO (12:29)
--- NOTE | 2018-08-07 15:34 | CR ---
ADVANCED WOUND CARE CONSULT CONSULT REQUESTED BY: Dr. Isaac DATE: 08/06/2018 This is regarding a pressure injury involving the sacrum and left lower extremity wounds. HISTORY OF PRESENT ILLNESS: This is a elderly female who was admitted with a fractured right hip for orthopedic repair. The patient has multiple wounds involving the left lower extremity and has a pressure injury involving the coccyx. She is a diabetic, poorly controlled with no recent hemoglobin A1c on the chart. There was a positive blood culture, and the patient was placed on IV antibiotic therapy and prophylactic deep venous thrombosis (DVT) anticoagulation. At present she is afebrile with a normal CBC. The patient had been seen in our clinic last year and when questioned why she did not return to have her wounds treated which occurred before the fracture she had no specific answer stating that she was treating it herself. She was then followed up by her family physician who treated her wounds with topical Polysporin ointment and a dry gauze dressing. Due to technical difficulties the telemedicine picture could not be obtained and therefore direct visualization of the wounds were unavailable. Basic treatment, however was given: to cleanse the wounds with Vashe wound cleanser, apply Santyl a collagenase directly on the wounds and dress the wounds with foam dressings, elevation of the foot of the bed to control gravitational dependent edema, mild compression stockings such as a Tubigrip stocking and to supplement her nutritional status with Glucerna and Isaac. Obtaining better control of her diabetes is required as part of her wound care as her most recent blood glucose was in the 240 range. As the patient has been in our clinic and is in the process of being discharged for rehabilitation we will make efforts to have her seen in our clinic in the next available appointment. Again due to lack of visualization of the wound and poor communication with a telemedicine a complete consult could not be offered. THERESA
--- NOTE | 2018-09-04 21:06 | DSES ---
DATE OF ADMISSION: 08/04/2018 DATE OF DISCHARGE: 08/07/2018 CONSULTANTS: Orthopedic surgery and clinical rehab specialist. DISCHARGE DIAGNOSES: 1. Right hip fracture. 2. Multiple ulcers. 3. Diabetes. 4. Positive blood culture, suspect contamination. 5. Hypomagnesemia. 6. Hypokalemia. 7. Depression. 8. Gastroesophageal reflux disease (GERD). HOSPITALIZATION COURSE: The patient is a 73-year-old female who presented to [facility] on 08/04/2018 after a fall. The patient was found to have right hip fracture. The patient was admitted to the hospitalist team. Orthopedic team was consulted. The patient had a right hip repair on 08/05/2018. The patient tolerated the procedure. Continued to work with physical therapy (PT). Later, due to multiple chronic ulcers, clinical rehab specialist was consulted. On 08/07/2018, the patient was discharged to [facility]. VITAL SIGNS: On the day of discharge: Temperature 97.9, pulse 83, respirations 16, blood pressure 115/56, pulse oximetry 100% on room air. LABORATORY DATA: On the day of discharge: WBC 6.3, hemoglobin 8.3, hematocrit 25.8, platelet count 74. Sodium is 137, potassium 3.9, chloride 102, carbon dioxide 29, BUN 11, creatinine 0.57, GFR greater than 60, fasting glucose 217, A1/c 11.8, calcium 7.6, magnesium 1.8. Microbiology: Blood cultures from 08/04/2018 showed Staphylococcus hominis, Staphylococcus parasanguinis. Blood cultures from 08/04/2018, different set, showed no growth after 5 days. Blood culture from 08/06/2018 showed no growth after 5 days. Leg wound culture on 08/04/2018 was positive for Staphylococcus coag negative, Staphylococcus aureus. IMAGING STUDIES: Right hip x-ray demonstrated angulated fracture, intertrochanteric segment of right hip. Chest x-ray demonstrated no acute disease. Mild biapical fibrotic change. CT of the right hip without contrast showed comminuted intertochanteric fracture with impaction in varus. DISCHARGE MEDICATIONS: - linezolid 500 mg by mouth twice a day for 10 days - magnesium oxide 400 mg by mouth daily - Percocet one tablet by mouth every 4 hours as needed - Xarelto 10 mg by mouth daily - Tylenol 650 mg by mouth every 6 hours as needed - diphenhydramine 25 mcg by mouth every 6 hours as needed - metformin 500 mg by mouth twice a day - omeprazole 40 mg by mouth daily - potassium chloride 10 mEq by mouth daily - 25 mg by mouth daily - sucralfate 1 gram by mouth before meals DISCHARGE INSTRUCTIONS: Discontinue line. Discharge to [facility]. Activity is per rehabilitation instructions. The patient should continue with consistent carbohydrate diet. The patient should followup with primary care provider in 1 to 2 weeks. Discharge condition is fair. Discharge time was greater than 30 minutes.
== END 2018-08-07 13:14 | DRG 481 ==
LOC: M ED 12:30 → EDBD 12:30 → M ED INP 14:36 → M MS5PR 19:55
PROVIDERS: ADMIT Internal Medicine; ATTEND Internal Medicine
PROC: 0QS606Z Reposition Right Upper Femur with Intramedullary Internal Fixation Device, Open Approach (ICD-10-PCS; principal; 2018-08-05 07:30)
DX: S72.141A Displaced intertrochanteric fracture of right femur, initial encounter for closed fracture (principal); E87.0 Hyperosmolality and hypernatremia; L03.116 Cellulitis of left lower limb; I85.10 Secondary esophageal varices without bleeding; E87.6 Hypokalemia; E83.42 Hypomagnesemia; E11.9 Type 2 diabetes mellitus without complications; K21.9 Gastro-esophageal reflux disease without esophagitis; F32.9 Major depressive disorder, single episode, unspecified; K74.60 Unspecified cirrhosis of liver; L30.9 Dermatitis, unspecified; Z88.8 Allergy status to other drugs, medicaments and biological substances; Z88.0 Allergy status to penicillin; W18.30XA Fall on same level, unspecified, initial encounter; Y92.009 Unspecified place in unspecified non-institutional (private) residence as the place of occurrence of the external cause; Z79.899 Other long term (current) drug therapy; I87.8 Other specified disorders of veins; L89.159 Pressure ulcer of sacral region, unspecified stage

== ENCOUNTER → 2018-08-12 | Outpatient (REF) ==
[2018-08-12 10:15] LABS: HEMATOCRIT 26.9 % (36.0-47.0); HEMOGLOBIN 8.4 g/dl (12.0-15.5); MEAN CORPUSCULAR HGB CONC 31.2 g/dl (32.0-36.5); MEAN CORPUSCULAR VOLUME 86.5 fl (80.0-96.0); PLATELET COUNT, AUTOMATED 124 10^3/uL (150-450); RED BLOOD COUNT 3.11 10^6/uL (4.00-5.40); RED CELL DISTRIBUTION WIDTH 16.1 % (11.5-14.5); WHITE BLOOD COUNT 4.6 10^3/uL (4.0-10.0)
[2018-08-12 10:35] LABS: ANION GAP 9 MEQ/L (8-16); BLOOD UREA NITROGEN 15 MG/DL (7-18); CALCIUM LEVEL 7.7 MG/DL (8.8-10.2); CARBON DIOXIDE LEVEL 27 MEQ/L (21-32); CHLORIDE LEVEL 103 MEQ/L (98-107); CREATININE FOR GFR 0.46 MG/DL (0.55-1.30); GLOMERULAR FILTRATION RATE > 60.0 (>39); GLUCOSE, FASTING 173 MG/DL (70-100); POTASSIUM SERUM 3.8 MEQ/L (3.5-5.1); SODIUM LEVEL 139 MEQ/L (136-145)
[2018-08-13 11:34] LABS: IRON (FE) 80 UG/DL (50-170); PERCENT SATURATION 42.8 % (13.2-45.0); TOTAL IRON BINDING CAPACITY 187 UG/DL (250-450)
[2018-08-14 08:06] LABS: TRANSFERRIN 170 mg/dL (200-370)
== END ==
DX: D64.9 Anemia, unspecified (principal)

== ENCOUNTER → 2018-08-19 | Outpatient (REF) ==
[2018-08-19 10:27] LABS: HEMATOCRIT 28.5 % (36.0-47.0); HEMOGLOBIN 8.9 g/dl (12.0-15.5); MEAN CORPUSCULAR HEMOGLOBIN 27.5 pg (27.0-33.0); MEAN CORPUSCULAR HGB CONC 31.2 g/dl (32.0-36.5); PLATELET COUNT, AUTOMATED 112 10^3/uL (150-450); RED BLOOD COUNT 3.24 10^6/uL (4.00-5.40); RED CELL DISTRIBUTION WIDTH 16.6 % (11.5-14.5); WHITE BLOOD COUNT 4.3 10^3/uL (4.0-10.0)
[2018-08-19 10:56] LABS: ANION GAP 9 MEQ/L (8-16); BLOOD UREA NITROGEN 21 MG/DL (7-18); CALCIUM LEVEL 8.4 MG/DL (8.8-10.2); CARBON DIOXIDE LEVEL 27 MEQ/L (21-32); CHLORIDE LEVEL 101 MEQ/L (98-107); CREATININE FOR GFR 0.44 MG/DL (0.55-1.30); GLOMERULAR FILTRATION RATE > 60.0 (>39); GLUCOSE, FASTING 127 MG/DL (70-100); POTASSIUM SERUM 3.8 MEQ/L (3.5-5.1); SODIUM LEVEL 137 MEQ/L (136-145)
== END ==
DX: D64.9 Anemia, unspecified (principal)

== ENCOUNTER → 2018-08-27 | Outpatient (REF) ==
[~2018-08-27] MED LIST changes: +DIPH25CA PO; -ENOXAPARIN 40 MG/0.4 ML SYRINGE (J1650) SC SCH; +LINE600T PO; +MAGN400C PO; +PERC5TAB12 PO; +POTA1TAB23 PO; +SERT25TA PO; +XARE10TA PO
[2018-08-27 09:57] LABS: HEMATOCRIT 27.3 % (36.0-47.0); HEMOGLOBIN 8.6 g/dl (12.0-15.5); MEAN CORPUSCULAR HEMOGLOBIN 27.1 pg (27.0-33.0); MEAN CORPUSCULAR HGB CONC 31.5 g/dl (32.0-36.5); MEAN CORPUSCULAR VOLUME 86.1 fl (80.0-96.0); PLATELET COUNT, AUTOMATED 160 10^3/uL (150-450); RED BLOOD COUNT 3.17 10^6/uL (4.00-5.40); WHITE BLOOD COUNT 2.1 10^3/uL (4.0-10.0)
[2018-08-27 10:33] LABS: BLOOD UREA NITROGEN 17 MG/DL (7-18); CALCIUM LEVEL 8.1 MG/DL (8.8-10.2); CARBON DIOXIDE LEVEL 30 MEQ/L (21-32); CHLORIDE LEVEL 103 MEQ/L (98-107); CREATININE FOR GFR 0.36 MG/DL (0.55-1.30); GLOMERULAR FILTRATION RATE > 60.0 (>39); GLUCOSE, FASTING 103 MG/DL (70-100); POTASSIUM SERUM 3.8 MEQ/L (3.5-5.1); SODIUM LEVEL 139 MEQ/L (136-145)
== END ==
PROVIDERS: ATTEND Internal Medicine
DX: D64.9 Anemia, unspecified (principal)

== ENCOUNTER → 2018-09-04 | Outpatient (REF) ==
[2018-09-04 10:44] LABS: HEMATOCRIT 35.2 % (36.0-47.0); HEMOGLOBIN 10.9 g/dl (12.0-15.5); MEAN CORPUSCULAR HEMOGLOBIN 27.3 pg (27.0-33.0); MEAN CORPUSCULAR VOLUME 88.2 fl (80.0-96.0); PLATELET COUNT, AUTOMATED 203 10^3/uL (150-450); RED BLOOD COUNT 3.99 10^6/uL (4.00-5.40); WHITE BLOOD COUNT 4.1 10^3/uL (4.0-10.0)
[2018-09-04 11:06] LABS: BLOOD UREA NITROGEN 26 MG/DL (7-18); CARBON DIOXIDE LEVEL 28 MEQ/L (21-32); CHLORIDE LEVEL 102 MEQ/L (98-107); CREATININE FOR GFR 0.62 MG/DL (0.55-1.30); GLOMERULAR FILTRATION RATE > 60.0 (>39); GLUCOSE, FASTING 163 MG/DL (70-100); POTASSIUM SERUM 3.9 MEQ/L (3.5-5.1); SODIUM LEVEL 137 MEQ/L (136-145)
== END ==
PROVIDERS: ATTEND Internal Medicine
DX: D64.9 Anemia, unspecified (principal)

== ENCOUNTER → 2018-10-08 | Outpatient (REF) | payer MEDICARE ==
[~2018-10-08] MED LIST changes: -LINE600T; -LINE600T PO; +LINE600T11; +LINE600T11 PO
[2018-10-08 08:47] LABS: HEMATOCRIT 32.6 % (36.0-47.0); HEMOGLOBIN 10.3 g/dl (12.0-15.5); MEAN CORPUSCULAR HGB CONC 31.6 g/dl (32.0-36.5); MEAN CORPUSCULAR VOLUME 85.6 fl (80.0-96.0); PLATELET COUNT, AUTOMATED 128 10^3/uL (150-450); RED BLOOD COUNT 3.81 10^6/uL (4.00-5.40); WHITE BLOOD COUNT 2.8 10^3/uL (4.0-10.0)
[2018-10-08 09:09] LABS: BLOOD UREA NITROGEN 17 MG/DL (7-18); CALCIUM LEVEL 9.3 MG/DL (8.8-10.2); CARBON DIOXIDE LEVEL 30 MEQ/L (21-32); CHLORIDE LEVEL 104 MEQ/L (98-107); CREATININE FOR GFR 0.56 MG/DL (0.55-1.30); GLOMERULAR FILTRATION RATE > 60.0 (>39); GLUCOSE, FASTING 158 MG/DL (70-100); POTASSIUM SERUM 3.5 MEQ/L (3.5-5.1); SODIUM LEVEL 141 MEQ/L (136-145)
== END ==
PROVIDERS: ATTEND Internal Medicine
DX: D50.0 Iron deficiency anemia secondary to blood loss (chronic) (principal)

== ENCOUNTER → 2018-11-04 | Outpatient (REF) | payer MEDICARE ==
[2018-11-04 10:06] LABS: HEMATOCRIT 31.3 % (36.0-47.0); HEMOGLOBIN 9.9 g/dl (12.0-15.5); MEAN CORPUSCULAR HEMOGLOBIN 26.6 pg (27.0-33.0); MEAN CORPUSCULAR HGB CONC 31.6 g/dl (32.0-36.5); MEAN CORPUSCULAR VOLUME 84.1 fl (80.0-96.0); PLATELET COUNT, AUTOMATED 100 10^3/uL (150-450); RED BLOOD COUNT 3.72 10^6/uL (4.00-5.40); WHITE BLOOD COUNT 2.8 10^3/uL (4.0-10.0)
[2018-11-04 11:41] LABS: BLOOD UREA NITROGEN 19 MG/DL (7-18); CALCIUM LEVEL 9.4 MG/DL (8.8-10.2); CARBON DIOXIDE LEVEL 25 MEQ/L (21-32); CHLORIDE LEVEL 105 MEQ/L (98-107); GLOMERULAR FILTRATION RATE > 60.0 (>39); GLUCOSE, FASTING 167 MG/DL (70-100); POTASSIUM SERUM 3.8 MEQ/L (3.5-5.1); SODIUM LEVEL 142 MEQ/L (136-145)
== END ==
PROVIDERS: ATTEND Internal Medicine
DX: D64.9 Anemia, unspecified (principal)

== ENCOUNTER → 2018-11-24 | Outpatient (REF) | payer MEDICARE ==
[2018-11-24 13:20] LABS: INFLUENZA A AMPLIFICATION NEGATIVE (NEGATIVE); INFLUENZA B AMPLIFICATION NEGATIVE (NEGATIVE)
== END ==
PROVIDERS: ATTEND Internal Medicine
DX: J34.89 Other specified disorders of nose and nasal sinuses (principal)

== ENCOUNTER → 2018-12-03 | Outpatient (REF) ==
[2018-12-03 09:05] LABS: HEMATOCRIT 31.1 % (36.0-47.0); HEMOGLOBIN 9.9 g/dl (12.0-15.5); MEAN CORPUSCULAR HEMOGLOBIN 26.8 pg (27.0-33.0); MEAN CORPUSCULAR HGB CONC 31.8 g/dl (32.0-36.5); MEAN CORPUSCULAR VOLUME 84.3 fl (80.0-96.0); PLATELET COUNT, AUTOMATED 112 10^3/uL (150-450); RED BLOOD COUNT 3.69 10^6/uL (4.00-5.40); WHITE BLOOD COUNT 2.6 10^3/uL (4.0-10.0)
[2018-12-03 09:30] LABS: BLOOD UREA NITROGEN 14 MG/DL (7-18); CALCIUM LEVEL 8.8 MG/DL (8.8-10.2); CARBON DIOXIDE LEVEL 29 MEQ/L (21-32); CHLORIDE LEVEL 105 MEQ/L (98-107); CREATININE FOR GFR 0.63 MG/DL (0.55-1.30); GLOMERULAR FILTRATION RATE > 60.0 (>39); GLUCOSE, FASTING 120 MG/DL (70-100); POTASSIUM SERUM 3.7 MEQ/L (3.5-5.1); SODIUM LEVEL 140 MEQ/L (136-145)
== END ==
PROVIDERS: ATTEND Internal Medicine
DX: D64.9 Anemia, unspecified (principal)

== ENCOUNTER 2018-12-29 14:27 | Outpatient (RCR) | payer MEDICARE, MEDICAID ==
[~2018-12-29 14:27] MED LIST changes: -/SUCR1TA OR; -SERT25TA PO; +SERT25TA85 PO; +SUCR1TAB56 OR
== END 2018-12-30 ==
LOC: M PT 14:27
PROVIDERS: ATTEND Nurse Practitioner Family
DX: M62.81 Muscle weakness (generalized) (principal); R26.81 Unsteadiness on feet; R26.9 Unspecified abnormalities of gait and mobility

== ENCOUNTER 2019-01-23 13:12 | Outpatient (RCR) | payer MEDICARE, MEDICAID | END 2019-01-30 | LOC: M PT 13:12 | PROVIDERS: ATTEND Nurse Practitioner Family | DX: M62.81 Muscle weakness (generalized) (principal); R26.81 Unsteadiness on feet ==

== ENCOUNTER 2019-02-27 14:28 | Outpatient (RCR) | payer MEDICARE, MEDICAID | END 2019-03-01 | LOC: M PT 14:28 | PROVIDERS: ATTEND Nurse Practitioner Family | DX: M62.81 Muscle weakness (generalized) (principal); R26.81 Unsteadiness on feet ==

== ENCOUNTER → 2019-03-12 | Outpatient (CLI) | payer MEDICARE ==
[~2019-03-12] MED LIST changes: +LINE1TAB6; +LINE1TAB6 PO; -LINE600T11; -LINE600T11 PO
--- NOTE | 2019-03-12 16:33 | REP ---
Unilateral right lower extremity arterial Doppler ultrasound: History: Chronic ulcer right heel. Findings: A bandage is present from the right calf to the foot preclude visualization of the posterior tibial artery distally. The patient did not wish to have bandages removed. Triphasic and biphasic relatively normal waveforms are seen throughout the arteries of the right lower extremity. Moderate plaquing is seen in the femoral artery. Monophasic flow was observed in the distal anterior tibial artery on the right. Ankle brachial index could not be done. Velocity chart right lower extremity: Right CF A 81 cm/S Profunda 59 Proximal SFA 99 Mid SFA 92 Distal SFA 85 Popliteal 67 Proximal AT A 32 Tibioperoneal trunk 87 Proximal COOK ENCHILADA 65 Distal COOK ENCHILADA not assessed due to bandage Distal AT A 79 Electronically Signed by Owen Jay MD 03/12/2019 04:24 P
== END ==
LOC: M RAD 11:56
PROVIDERS: ATTEND Physician Assistant
DX: L89.613 Pressure ulcer of right heel, stage 3 (principal); L97.822 Non-pressure chronic ulcer of other part of left lower leg with fat layer exposed

== ENCOUNTER 2019-03-27 13:07 | Outpatient (RCR) | payer MEDICARE | END 2019-04-01 | LOC: M PT 13:07 | PROVIDERS: ATTEND Nurse Practitioner Family | DX: Z51.89 Encounter for other specified aftercare (principal); M62.81 Muscle weakness (generalized); R26.81 Unsteadiness on feet ==

== ENCOUNTER → 2019-03-30 | Outpatient (CLI) | payer MEDICARE ==
[2019-03-30 09:21] LABS: BASO % 1.5 % (0.0-1.0); EOS # 0.4 10^3/uL (0.0-0.50); EOS % 13.6 % (0.0-3.0); HEMATOCRIT 35.7 % (36.0-47.0); HEMOGLOBIN 11.3 g/dl (12.0-15.5); LYMPH # 1.2 10^3/uL (1.5-4.5); LYMPH % 43.8 % (24.0-44.0); MEAN CORPUSCULAR HEMOGLOBIN 27.7 pg (27.0-33.0); MEAN CORPUSCULAR HGB CONC 31.7 g/dl (32.0-36.5); MEAN CORPUSCULAR VOLUME 87.5 fl (80.0-96.0); MONO # 0.3 10^3/uL (0.0-0.8); MONO % 9.4 % (0.0-5.0); NEUTROPHILS % 31.7 % (36.0-66.0); RED BLOOD COUNT 4.08 10^6/uL (4.00-5.40); WHITE BLOOD COUNT 2.7 10^3/uL (4.0-10.0)
[2019-03-30 09:50] LABS: NEUTROPHILS # 0.8 10^3/uL (1.8-7.7); PLATELET COUNT, AUTOMATED 97 10^3/uL (150-450)
[2019-03-30 09:51] LABS: ALBUMIN 3.6 GM/DL (3.2-5.2); ALT/SGPT 13 U/L (12-78); BILIRUBIN,TOTAL 0.5 MG/DL (0.2-1.0); BLOOD UREA NITROGEN 9 MG/DL (7-18); CALCIUM LEVEL 9.3 MG/DL (8.8-10.2); CARBON DIOXIDE LEVEL 26 MEQ/L (21-32); CHLORIDE LEVEL 110 MEQ/L (98-107); CHOLESTEROL LEVEL 157 MG/DL (<200); CHOLESTEROL RISK RATIO 2.532 (<5); CREATININE FOR GFR 0.69 MG/DL (0.55-1.30); GLOMERULAR FILTRATION RATE > 60.0 (>39); GLUCOSE, FASTING 104 MG/DL (70-100); HDL CHOLESTEROL 62 MG/DL (>40); LDL CHOLESTEROL 77 MG/DL (<100); NON-HDL-C 95 MG/DL; POTASSIUM SERUM 4.2 MEQ/L (3.5-5.1); SODIUM LEVEL 142 MEQ/L (136-145); TOTAL PROTEIN 7.8 GM/DL (6.4-8.2); TRIGLYCERIDES LEVEL 89 MG/DL (<150)
[2019-03-30 10:07] LABS: HEMOGLOBIN A1c 6.8 %
== END ==
LOC: M LAB 08:39
PROVIDERS: ATTEND Nurse Practitioner Family
DX: Z13.220 Encounter for screening for lipoid disorders (principal); K76.9 Liver disease, unspecified; L03.116 Cellulitis of left lower limb; E11.9 Type 2 diabetes mellitus without complications

== ENCOUNTER → 2019-04-14 | Outpatient (POV) | payer MEDICAID, MEDICARE ==
[~2019-04-14] VITALS: Ht 172.7 cm; Wt 51.8 kg
[~2019-04-14] MED LIST changes: +BUSP5TA PO; -DIPH25CA PO; +DIPH25CA32 PO
[2019-04-14 11:50] VITALS: BP 112/56
--- NOTE | 2019-04-14 16:00 | IRCOV ---
[facility] IR Consult Office Visit IR Consult Office Visit DATE: Apr 14, 2019 REASON FOR CONSULTATION/CHIEF COMPLAINT: Nonhealing right heel ulcer. HISTORY OF PRESENT ILLNESS: 73 female with long history of varicose veins in the legs since age 29, previously worse with menstrual cycles and associated with significant pain and morbidity. This was never treated conservatively or surgically. Never used compression stockings or leg elevation. No pregnancies. B ut does have a strong family history of varicose vein disease. This developed into swelling over the last few years and venous ulcers over the last couple of years. Patient is currently under the care of Dr. Burgos for venous ulcerations and patient describes these are healing. Due to a right heel ulcer, patient underwent arterial evaluation with ultrasound and was found to have abnormal waveform in the anterior tibial artery of the right lower extremity, therefore she is referred for arterial evaluation. Patient denies pain in the legs with walking. Patient denies rest pain at night. Patient denies weakness or sensory disturbances in the legs. No chest pain. No history of angina, heart attacks or stroke. Type II diabetic well controlled on metformin. No hypertension or hyperlipidemia. ALLERGIES: Please see below. HOME MEDICATIONS: Please see below. PAST MEDICAL HISTORY: Diabetic. PAST SURGICAL HISTORY: No prior varicose vein surgery. No bypass grafts. No abdominal surgery. FAMILY HISTORY: Coronary artery disease. SOCIAL HISTORY: Lives alone. Self caring. Nonsmoker. Denies alcohol. REVIEW OF SYSTEMS: Otherwise negative PHYSICAL EXAMINATION: VITAL SIGNS: Please see below. GENERAL APPEARANCE: Appears well. Comfortable at rest. HEENT: No scleral icterus. RESPIRATORY: Symmetric breath sounds. CARDIOVASCULAR: Normal rate. ABDOMEN: Non-distended. No pulsatile mass. EXTREMITIES: Right side: Pitting edema to mid-tibia. Femoral pulse 2+. Popliteal pulse 2+. Dorsalis pedis and posterior tibial pulse non palpable. Left side: Pitting edema to knee. Femoral pulse 2+. Popliteal pulse 2+. Dorsalis pedis and posterior tibial pulse non palpable. NEUROLOGICAL: Alert and oriented. PSYCHIATRIC: Appropriate to circumstance. LABORATORY DATA: Please see below. Imaging: I personally reviewed the right lower extremity ultrasound. There is monophasic abnormal waveform in the distal anterior tibial artery. Peroneal and Posterior tibial artery could not be evaluated. ASSESSMENT/PLAN: 73 female with long-standing bilateral chronic venous hypertension associated with skin changes and ulcerations, now presents with nonhealing right heel ulcer associated with abnormal right arterial ultrasound. We discussed options for a diagnostic angiogram of the right leg with intervention if necessary. We discussed the risks and benefits of the procedure and patient would like to proceed. We'll schedule the patient for the procedure under moderate sedation. I spent 30 minutes in consultation with the patient. Thank you for this referral. Allergies Coded Allergies: MS - Ciprofloxacin (Unverified Allergy, Intermediate, rash, 07/21/14) MS - Bacitracin (Verified Allergy, Unknown, contact allergic dermatitis, 11/22/14) MS - Clindamycin (Unverified Allergy, Unknown, rash, 07/08/14) Patient thinks she is allergic to this med, has a rash and didnt take med today because of rash. MS - Neomycin (Verified Allergy, Unknown, contact allergic dermatitis, 11/22/14) MS - Penicillins (Verified Allergy, Unknown, RASH, 12/04/12) MS - Penicillins Cross Reactors (Verified Allergy, Unknown, RASH, 12/04/12) MS - Polymyxin B (Verified Allergy, Unknown, contact allergic dermatitis, 11/22/14) Home Medications Scheduled Linezolid (Linezolid), 1 TAB PO BID Magnesium Oxide (Magnesium), 400 MG PO DAILY Metformin HCl (Metformin HCl), 500 MG PO BID, (Reported) Omeprazole (Omeprazole), 40 MG PO DAILY, (Reported) Potassium Chloride (Potassium Chloride), 10 MEQ PO DAILY, (Reported) Rivaroxaban (Xarelto), 10 MG PO DAILY Sertraline Hcl (Sertraline HCl), 25 MG PO DAILY, (Reported) Sucralfate (Carafate), 1 GM PO AC, (Reported) Scheduled PRN Acetaminophen (Acetaminophen), 650 MG PO Q6H PRN for PAIN, (Reported) Diphenhydramine HCl (Diphenhydramine HCl), 25 MG PO Q6H PRN for ALLERGY SYMPTOMS, (Reported) Oxycodone HCl/Acetaminophen (Percocet 5-325 mg Tablet), 1 TAB PO Q4H PRN for PAIN VS, I&O, 24H, Fishbone Vital Signs/I&O Vital Signs Date Time Temp Pulse Resp B/P (MAP) Pulse Ox O2 Delivery O2 Flow Rate FiO2 04/14/19 11:50 98.6 68 16 112/56 (74) 100 LANNY SOTO MD Apr 14, 2019 16:00
== END ==
LOC: M IRPOV 11:33
PROVIDERS: ATTEND Radiology Diagnostic Radiology
DX: I87.333 Chronic venous hypertension (idiopathic) with ulcer and inflammation of bilateral lower extremity (principal); L97.419 Non-pressure chronic ulcer of right heel and midfoot with unspecified severity; Z88.0 Allergy status to penicillin; Z88.1 Allergy status to other antibiotic agents; Z79.899 Other long term (current) drug therapy; Z82.49 Family history of ischemic heart disease and other diseases of the circulatory system

== ENCOUNTER 2019-04-29 15:15 | Outpatient (RCR) | payer MEDICARE | END 2019-05-02 | LOC: M PT 15:15 | PROVIDERS: ATTEND Nurse Practitioner Family | DX: Z51.89 Encounter for other specified aftercare (principal); M62.81 Muscle weakness (generalized); R26.81 Unsteadiness on feet ==

== ENCOUNTER 2019-05-28 14:30 | Outpatient (RCR) | payer MEDICARE | END 2019-06-01 | LOC: M PT 14:30 | PROVIDERS: ATTEND Nurse Practitioner Family | DX: Z51.89 Encounter for other specified aftercare (principal); M25.551 Pain in right hip; M62.81 Muscle weakness (generalized); M26.81 Anterior soft tissue impingement; R26.9 Unspecified abnormalities of gait and mobility ==

== ENCOUNTER → 2019-08-12 | Outpatient (CLI) | payer MEDICARE ==
[~2019-08-12] MED LIST changes: -OMEP40CA2 PO; +OMEP40CA97 PO
[2019-08-12 10:39] LABS: HEMATOCRIT 31.5 % (36.0-47.0); HEMOGLOBIN 10.2 g/dl (12.0-15.5); MEAN CORPUSCULAR HEMOGLOBIN 27.5 pg (27.0-33.0); MEAN CORPUSCULAR HGB CONC 32.4 g/dl (32.0-36.5); MEAN CORPUSCULAR VOLUME 84.9 fl (80.0-96.0); PLATELET COUNT, AUTOMATED 102 10^3/uL (150-450); RED BLOOD COUNT 3.71 10^6/uL (4.00-5.40); WHITE BLOOD COUNT 2.6 10^3/uL (4.0-10.0)
[2019-08-12 11:00] LABS: HEMOGLOBIN A1c 6.1 %
[2019-08-12 11:16] LABS: ALBUMIN 3.2 GM/DL (3.2-5.2); ALT/SGPT 15 U/L (12-78); BILIRUBIN,TOTAL 0.9 MG/DL (0.2-1.0); BLOOD UREA NITROGEN 10 MG/DL (7-18); CARBON DIOXIDE LEVEL 27 MEQ/L (21-32); CHLORIDE LEVEL 105 MEQ/L (98-107); CHOLESTEROL LEVEL 146 MG/DL (<200); CHOLESTEROL RISK RATIO 2.703 (<5); CREATININE FOR GFR 0.62 MG/DL (0.55-1.30); GLOMERULAR FILTRATION RATE > 60.0 (>39); GLUCOSE, FASTING 129 MG/DL (70-100); HDL CHOLESTEROL 54 MG/DL (>40); LDL CHOLESTEROL 77 MG/DL (<100); NON-HDL-C 92 MG/DL; POTASSIUM SERUM 3.9 MEQ/L (3.5-5.1); SODIUM LEVEL 140 MEQ/L (136-145); TOTAL PROTEIN 7.4 GM/DL (6.4-8.2); TRIGLYCERIDES LEVEL 75 MG/DL (<150)
== END ==
LOC: M LAB 09:55
PROVIDERS: ATTEND Family Medicine
DX: R53.83 Other fatigue (principal); I10 Essential (primary) hypertension; E11.9 Type 2 diabetes mellitus without complications

== ENCOUNTER → 2020-07-08 | Outpatient (CLI) | payer MEDICAID, MEDICARE ==
--- NOTE | 2020-07-08 16:03 | REP ---
INDICATION: CHRONIC VENOUS HYPERTENSION W ULCER OF L LOW EXTREM/FILE RM COMPARISON: 03/14/2017. . TECHNIQUE: Real time compression and duplex Doppler interrogation of the left lower extremity deep venous system is performed. FINDINGS: The left common femoral, superficial femoral and popliteal veins are fully compressible with transducer pressure and demonstrate normal spontaneous and phasic flow, without evidence of deep venous thrombosis. Evaluation for venous reflux demonstrates no reflux in any portion of the deep vein system nor in the lesser saphenous vein. There is reflux in the greater saphenous vein, 3 a bob 0.9 seconds at the saphenofemoral junction which measures 5 mm, 0.9 seconds at the mid thigh which measures 4 mm, and 0.5 seconds at the knee which measures 5 mm. Bidirectional flow is seen in the anterior accessory great saphenous vein. Multiple collateral venous structures communicate with the anterior accessory greater saphenous vein. These are superficial. IMPRESSION: No evidence of deep venous thrombosis of the left lower extremity femoral popliteal venous system. Greater saphenous vein reflux as discussed in detail above. <Electronically signed by Bari Cobos > 07/08/20 [id number]
== END ==
LOC: M RAD 11:32
PROVIDERS: ATTEND Surgery
DX: I87.312 Chronic venous hypertension (idiopathic) with ulcer of left lower extremity (principal); L97.822 Non-pressure chronic ulcer of other part of left lower leg with fat layer exposed

== ENCOUNTER → 2020-07-29 | Outpatient (CLI) | payer MEDICARE ==
[2020-07-29 11:22] LABS: HEMATOCRIT 34.3 % (36.0-47.0); HEMOGLOBIN 10.8 g/dl (12.0-15.5); MEAN CORPUSCULAR HEMOGLOBIN 27.6 pg (27.0-33.0); MEAN CORPUSCULAR HGB CONC 31.5 g/dl (32.0-36.5); MEAN CORPUSCULAR VOLUME 87.5 fl (80.0-96.0); PLATELET COUNT, AUTOMATED 112 10^3/uL (150-450); RED BLOOD COUNT 3.92 10^6/uL (4.00-5.40); WHITE BLOOD COUNT 3.8 10^3/uL (4.0-10.0)
[2020-07-29 11:34] LABS: HEMOGLOBIN A1c 6.8 %
[2020-07-29 11:46] LABS: ALBUMIN 3.2 GM/DL (3.2-5.2); ALT/SGPT 12 U/L (12-78); BILIRUBIN,TOTAL 0.4 MG/DL (0.2-1.0); BLOOD UREA NITROGEN 14 MG/DL (7-18); CALCIUM LEVEL 8.9 MG/DL (8.8-10.2); CARBON DIOXIDE LEVEL 28 MEQ/L (21-32); CHLORIDE LEVEL 106 MEQ/L (98-107); CHOLESTEROL LEVEL 177 MG/DL (<200); CHOLESTEROL RISK RATIO 2.854 (<5); CREATININE FOR GFR 0.75 MG/DL (0.55-1.30); GLOMERULAR FILTRATION RATE > 60.0 (>39); GLUCOSE, FASTING 133 MG/DL (70-100); HDL CHOLESTEROL 62 MG/DL (>40); LDL CHOLESTEROL 98 MG/DL (<100); NON-HDL-C 115 MG/DL; POTASSIUM SERUM 3.8 MEQ/L (3.5-5.1); SODIUM LEVEL 140 MEQ/L (136-145); TOTAL PROTEIN 7.8 GM/DL (6.4-8.2); TRIGLYCERIDES LEVEL 87 MG/DL (<150)
[2020-07-29 11:47] LABS: TOTAL 25(OH) VITAMIN D 27.3 NG/ML (30.0-100.0)
== END ==
LOC: M LAB 10:43
PROVIDERS: ATTEND Family Medicine
DX: E11.9 Type 2 diabetes mellitus without complications (principal); I10 Essential (primary) hypertension; D64.9 Anemia, unspecified; E03.9 Hypothyroidism, unspecified; Z79.899 Other long term (current) drug therapy

== ENCOUNTER → 2020-08-02 | Outpatient (POV) | payer MEDICARE ==
--- NOTE | 2020-08-04 15:40 | IRCOV ---
[facility] IR Consult Office Visit IR Consult Office Visit DATE: Aug 02, 2020 Patient agreed to this telephone consultation. I spent 30 minutes reviewing patient's records, imaging and talking to the patient. REASON FOR CONSULTATION/CHIEF COMPLAINT: Venous reflux. Venous ulcer. HISTORY OF PRESENT ILLNESS: 75-year-old female with chronic bilateral lower extremity venous stasis ulcers with worsening left lower extremity ulcer and swelling. She is under the care of wound care. Patient is referred for laser vein treatment. Patient states she's had left lower extremity swelling and ulce rs on and off for many years. She states the swelling is worse towards the end of the day. No prior history of vein stripping or vein therapy. She denies pain with leg elevation. She denies color change in the legs with leg elevation. She has an ulcer on the right leg which is improving but the left one is getting worse. She denies chest pain, shortness of breath, orthopnea or paroxysmal nocturnal dyspnea. She denies prior history of deep vein thrombosis. ALLERGIES: Please see below. HOME MEDICATIONS: Please see below. PAST MEDICAL HISTORY: Diabetes Hiatal hernia GI reflux Venous disease Skin cancer Broken hip PAST SURGICAL HISTORY: Cholecystectomy 1988 Right hip surgery 2017 FAMILY HISTORY: Noncontributory. SOCIAL HISTORY: Nonsmoker. Denies alcohol or drugs. REVIEW OF SYSTEMS: Otherwise negative PHYSICAL EXAMINATION: No video on patient side. LABORATORY DATA: 07/29/2020 hemoglobin 10.8 hematocrit 34.3 WBC 3.8 platelets 112 sodium 140 potassium 3.8 BUN 14 creatinine 0.75 GFR greater than 60 hem oglobin A1c 6.8 Imaging: I reviewed the left lower extremity venous reflux ultrasound study performed July 2020. Greater saphenous vein is dilated with greater than 0.5 seconds reflux. Lesser saphenous vein does not demonstrate reflux. ASSESSMENT/PLAN: 75-year-old female with chronic left lower extremity swelling and venous stasis ulcers refractory to healing. She has positive ultrasound findings of saphenous vein reflux and I agree she would benefit from EVLT therapy. We discussed the risks and benefits of the procedure and patient would like to proceed. We'll schedule the patient for the procedure. Thank you for this referral. Cc Dr. Burgos Allergies Coded Allergies: MS - Ciprofloxacin (Unverified Allergy, Intermediate, rash, 07/21/14) MS - Bacitracin (Verified Allergy, Unknown, contact allergic dermatitis, 11/22/14) MS - Clindamycin (Unverified Allergy, Unknown, rash, 07/08/14) Patient thinks she is allergic to this med, has a rash and didnt take med today because of rash. MS - Neomycin (Verified Allergy, Unknown, contact allergic dermatitis, 11/22/14) MS - Penicillins (Verified Allergy, Unknown, RASH, 12/04/12) MS - Penicillins Cross Reactors (Verified Allergy, Unknown, RASH, 12/04/12) MS - Polymyxin B (Verified Allergy, Unknown, contact allergic dermatitis, 11/22/14) Home Medications Scheduled Buspirone HCl (Buspirone HCl), 5 MG PO BID, (Reported) Magnesium Oxide (Magnesium), 400 MG PO DAILY Metformin HCl (Metformin HCl), 500 MG PO BID, (Reported) Omeprazole (Omeprazole), 40 MG PO DAILY, (Reported) Potassium Chloride (Potassium Chloride), 10 MEQ PO DAILY, (Reported) Sucralfate (Carafate), 1 GM PO AC, (Reported) Scheduled PRN Acetaminophen (Acetaminophen), 650 MG PO Q6H PRN for PAIN, (Reported) Diphenhydramine HCl (Diphenhydramine HCl), 25 MG PO Q6H PRN for ALLERGY SYMPTOMS, (Reported) Oxycodone HCl/Acetaminophen (Percocet 5-325 mg Tablet), 1 TAB PO Q4H PRN for PAIN LANNY SOTO MD Aug 04, 2020 15:40
== END ==
LOC: M TMIRPOV 12:55
PROVIDERS: ATTEND Radiology Diagnostic Radiology
DX: I87.312 Chronic venous hypertension (idiopathic) with ulcer of left lower extremity (principal); L97.929 Non-pressure chronic ulcer of unspecified part of left lower leg with unspecified severity; Z79.899 Other long term (current) drug therapy; Z88.0 Allergy status to penicillin; Z88.1 Allergy status to other antibiotic agents

== ENCOUNTER → 2020-10-04 | Outpatient (POV) | payer MEDICARE, MEDICAID ==
[~2020-10-04] MED LIST changes: -CLIN150C14 PO; +CLIN150C15 PO
--- NOTE | 2020-10-06 14:16 | IRPN ---
[facility] IR Progress Note IR Progress Note DATE: Oct 04, 2020 Patient agreed to this telephone follow-up. I spent 30 minutes answering patient's questions. FOLLOW-UP: 75-year-old female with left lower extremity venous incompetency and venous stasis ulcers. She does have left greater saphenous vein incompetency on ultrasound and was scheduled for EVLT. However, the patient canceled because she is scared of procedures. Patient had a list of questions and I answered all of the patient's questions. Patient would like to proceed with the procedure. We'll schedule the patient for left lower extremity EVLT. IMPRESSION: Patient had questions and concerns about left lower extremity EVLT procedure. I discussed the procedure at length with the patient and patient's questions were answered. She is rescheduled for left lower extremity EVLT. Thank you for this referral Cc Ene Ornelas Allergies Coded Allergies: MS - Ciprofloxacin (Unverified Allergy, Intermediate, rash, 07/21/14) MS - Bacitracin (Verified Allergy, Unknown, contact allergic dermatitis, 11/22/14) MS - Clindamycin (Unverified Allergy, Unknown, rash, 07/08/14) Patient thinks she is allergic to this med, has a rash and didnt take med today because of rash. MS - Neomycin (Verified Allergy, Unknown, contact allergic dermatitis, 11/22/14) MS - Penicillins (Verified Allergy, Unknown, RASH, 12/04/12) MS - Penicillins Cross Reactors (Verified Allergy, Unknown, RASH, 12/04/12) MS - Polymyxin B (Verified Allergy, Unknown, contact allergic dermatitis, 11/22/14) LANNY SOTO MD Oct 06, 2020 14:16
== END ==
LOC: M TMIRPOV 14:22
PROVIDERS: ATTEND Radiology Diagnostic Radiology
DX: I87.303 Chronic venous hypertension (idiopathic) without complications of bilateral lower extremity (principal); I87.2 Venous insufficiency (chronic) (peripheral)

== ENCOUNTER → 2020-10-12 | Outpatient (CLI) | payer MEDICAID, MEDICARE ==
[~2020-10-12] MED LIST changes: +LIDOCAINE 1% MDV 20ML VIAL As Ordered ONE; +LIDOCAINE 2% MDV 20ML VIAL As Ordered ONE; +MIDAZOLAM INJ 2MG/2ML VIAL (J2250 PER 1MG) As Ordered ONE; +PROMETHAZINE INJ 25 MG/ML VIAL (J2550) As Ordered ONE; +diphenhydrAMINE 50MG/ML VIAL (J1200) As Ordered ONE; +fentaNYL 100 MCG/2 ML INJECTION (J3010) As Ordered ONE
--- NOTE | 2020-10-12 13:14 | IRHP ---
[facility] IR Pre-Procedure H & P General Date of Service: Oct 12, 2020 Procedure: Same Day Surgery Interval History and Physical I have seen the patient and reviewed last H & P performed within 30 days. There is no significant interval change. History of Present Illness Chief Complaint The patient is a 75-year-old female admitted with a reason for visit of Varicose Veins, Venous Htn. PRE-PROCEDURE DIAGNOSIS: Varicose veins HEART: Normal rate. LUNGS: Normal breathing at rest. ASA Classification ASA Classification: III-Severe systemic dis. Mallampati Score: II NPO: Yes Problems with prior sedation: No Obstructive Sleep Apnea: No Plan moderate sedation Allergies Coded Allergies: MS - Ciprofloxacin (Unverified Allergy, Intermediate, rash, 07/21/14) MS - Bacitracin (Verified Allergy, Unknown, contact allergic dermatitis, 11/22/14) MS - Clindamycin (Unverified Allergy, Unknown, rash, 07/08/14) Patient thinks she is allergic to this med, has a rash and didnt take med today because of rash. MS - Neomycin (Verified Allergy, Unknown, contact allergic dermatitis, 11/22/14) MS - Penicillins (Verified Allergy, Unknown, RASH, 12/04/12) MS - Penicillins Cross Reactors (Verified Allergy, Unknown, RASH, 12/04/12) MS - Polymyxin B (Verified Allergy, Unknown, contact allergic dermatitis, 11/22/14) Home Medications Scheduled Buspirone HCl (Buspirone HCl), 5 MG PO BID, (Reported) Magnesium Oxide (Magnesium), 400 MG PO DAILY Metformin HCl (Metformin HCl), 500 MG PO BID, (Reported) Omeprazole (Omeprazole), 40 MG PO DAILY, (Reported) Potassium Chloride (Potassium Chloride), 10 MEQ PO DAILY, (Reported) Sucralfate (Carafate), 1 GM PO AC, (Reported) Scheduled PRN Acetaminophen (Acetaminophen), 650 MG PO Q6H PRN for PAIN, (Reported) Diphenhydramine HCl (Diphenhydramine HCl), 25 MG PO Q6H PRN for ALLERGY SYMPTOMS, (Reported) Oxycodone HCl/Acetaminophen (Percocet 5-325 mg Tablet), 1 TAB PO Q4H PRN for PAIN LANNY SOTO MD Oct 12, 2020 13:14
[2020-10-12 13:31] LABS: HEMATOCRIT 31.6 % (36.0-47.0); HEMOGLOBIN 10.1 g/dl (12.0-15.5); MEAN CORPUSCULAR HEMOGLOBIN 27.3 pg (27.0-33.0); MEAN CORPUSCULAR VOLUME 85.4 fl (80.0-96.0); PLATELET COUNT, AUTOMATED 117 10^3/uL (150-450); WHITE BLOOD COUNT 4.1 10^3/uL (4.0-10.0)
[2020-10-12 15:30] VITALS: BP 125/60
--- NOTE | 2020-10-13 09:51 | POST-OPPD ---
Postoperative Procedure Note Date Of Procedure: Oct 12, 2020 Time Of Procedure: 16:00 IR Endovenous laser treatment for left leg varicose vein. IR Ultrasound of the left leg. IR Tumescent anesthesia under ultrasound guidance. IR Moderate sedation. Clinical information: Left leg pain, swelling and nonhealing ulcer. Left leg varicose veins. Greater saphenous vein reflux greater than 0.5 seconds. Physician: Dr. Magana. Procedure: The patient was advised of the benefits, risks and alternatives of the procedure and informed consent was obtained. The time-out was performed with verification of the patient's name, MRN, site of procedure and type of procedure to be performed. The patient was positioned in the supine position on the table. The site was prepped and draped in the usual sterile fashion. Moderate sedation was performed by the physician including the presence of an independent trained RN who assisted in monitoring the patient's level of consciousness and physiologic status. Following the administration of fentanyl and Versed , the physician spent 60 minutes of continuous face to face time with the patient. Ultrasound of the left lower extremity demonstrates dilated greater saphenous vein with greater than 0.5 seconds reflux. The access site was identified with ultrasound and anesthetized with lidocaine. The left greater saphenous vein was accessed under ultrasound guidance at the mid calf, using a micro introducer needle. An 018 cope wire was advanced into the vein. Incision at the access site was made using a scalpel. The needle was removed and an access catheter was advanced over the wire under ultrasound guidance to > 2.5 centimeters from the saphenofemoral junction. The wire was removed and the laser fiber was advanced through the catheter under ultrasound guidance and positioned with the tip located 2.5 cm from the saphenous femoral junction. Tumescent anesthesia was then injected under ultrasound guidance along the entire length of the vein to be treated. Repeat ultrasound of the saphenofemoral junction was used to confirm positioning of the tip of the laser back 2.5 cm from junction. The patient was positioned in Trendelenburg. The laser was then activated and under ultrasound guidance used to laser the left greater saphenous vein back to the access point. Simultaneous manual compression was applied to the treated vein. Treatment: Wattage: 7. Time: 185 seconds. Pullback rate 1 cm every 7 seconds. Total Energy deposited 1297 joules. Treatment 50 joules per centimeter of vein. The fiber, catheter and sheath were removed, pressure held and hemostasis achieved. A sterile dressing was applied to the site. Compression dressing was then applied to the leg, from ankle to groin. The patient tolerated the procedure well and was returned to the PRU in stable condition. EBL: < 5 ml. Complications: None. Impression: 1. Ultrasound demonstrates dilated left greater saphenous vein with greater than 0.5 seconds reflux. 2. Successful left greater saphenous vein ablation with laser. 3. Compression dressing applied from ankle to groin. Patient to return in 1 week for follow up ultrasound at which time the compression dressing will be switched to stockings. Thank you this referral. LANNY MAGANA MD Oct 13, 2020 09:51
== END ==
LOC: M IRPRO 12:33
PROVIDERS: ATTEND Radiology Diagnostic Radiology
DX: I83.029 Varicose veins of left lower extremity with ulcer of unspecified site (principal); I83.812 Varicose veins of left lower extremity with pain; I87.2 Venous insufficiency (chronic) (peripheral); Z79.84 Long term (current) use of oral hypoglycemic drugs; Z79.899 Other long term (current) drug therapy; Z88.0 Allergy status to penicillin; Z88.1 Allergy status to other antibiotic agents
CPT/HCPCS: 36478; 76940; 85027; 99152; 99153; J1200; J2250; J3010

== ENCOUNTER → 2020-10-19 | Outpatient (CLI) | payer MEDICARE ==
[~2020-10-19] MED LIST changes: -LIDOCAINE 1% MDV 20ML VIAL As Ordered ONE; -LIDOCAINE 2% MDV 20ML VIAL As Ordered ONE; -MIDAZOLAM INJ 2MG/2ML VIAL (J2250 PER 1MG) As Ordered ONE; -PROMETHAZINE INJ 25 MG/ML VIAL (J2550) As Ordered ONE; -diphenhydrAMINE 50MG/ML VIAL (J1200) As Ordered ONE; -fentaNYL 100 MCG/2 ML INJECTION (J3010) As Ordered ONE
--- NOTE | 2020-10-19 11:16 | REP ---
INDICATION: S/P EVLT, R/O DVT COMPARISON: None. TECHNIQUE: Cobos scale and color Doppler evaluation left lower extremity using linear high frequency transducer. FINDINGS: Ultrasound examination of the left lower extremity deep venous structures from the common femoral vein to the popliteal vein demonstrates normal compressibility flow and wave patterns in response to respiration and augmentation. There is no evidence for deep venous thrombosis. Greater saphenous vein is occluded 9 mm from the junction with the common femoral vein consistent with previous EVLT. IMPRESSION: No evidence for deep venous thrombosis. <Electronically signed by Julián Omalley > 10/19/20 [id number]
== END ==
LOC: M RAD 10:25
PROVIDERS: ATTEND Radiology Diagnostic Radiology
DX: I83.813 Varicose veins of bilateral lower extremities with pain (principal)

== ENCOUNTER → 2020-11-01 | Outpatient (POV) | payer MEDICARE ==
--- NOTE | 2020-11-07 12:10 | IRPN ---
[facility] IR Progress Note IR Progress Note DATE: Nov 01, 2020 Patient agreed to this telephone follow-up. I spent 10 minutes reviewing patient's imaging and talking to the patient. FOLLOW-UP: Status post left lower extremity EVLT. Patient states she has some pain above and medial to the knee where the vein was treated. She thinks this is from the compression dressing which was tight on her skin. She describes a red line where the bandage stopped. No pain in the calf. No problems with flexing the leg. ON EXAMINATION: No video on patient side. Imaging: I personally reviewed the post EVLT follow-up ultrasound performed 10/19/2020. Successfully treated GSV with no findings of deep vein thrombosis. IMPRESSION: Doing well status post left leg EVLT with no findings of DVT on follow-up ultrasound. The symptoms she describes may truly be related to the dressing or she may be feeling thrombophlebitis from the treated GSV. I advised she might try ibuprofen 2-3 times a day to see if this helps with the pain. Patient to call us back if symptoms ongoing or worsen. Thank you for this referral Cc Ene Ornelas Allergies Coded Allergies: MS - Ciprofloxacin (Unverified Allergy, Intermediate, rash, 07/21/14) MS - Bacitracin (Verified Allergy, Unknown, contact allergic dermatitis, 11/22/14) MS - Clindamycin (Unverified Allergy, Unknown, rash, 07/08/14) Patient thinks she is allergic to this med, has a rash and didnt take med today because of rash. MS - Neomycin (Verified Allergy, Unknown, contact allergic dermatitis, 11/22/14) MS - Penicillins (Verified Allergy, Unknown, RASH, 12/04/12) MS - Penicillins Cross Reactors (Verified Allergy, Unknown, RASH, 12/04/12) MS - Polymyxin B (Verified Allergy, Unknown, contact allergic dermatitis, 11/22/14) LANNY SOTO MD Nov 07, 2020 12:10
== END ==
LOC: M TMIRPOV 09:03
PROVIDERS: ATTEND Radiology Diagnostic Radiology
DX: Z48.812 Encounter for surgical aftercare following surgery on the circulatory system (principal); M79.605 Pain in left leg

== ENCOUNTER → 2020-11-11 | Outpatient (CLI) | payer MEDICARE ==
--- NOTE | 2020-11-11 17:07 | REP ---
INDICATION: CHRONIC VENOUS HYPERTENSION WITH ULCER. 03/12/2019 TECHNIQUE: Real time mcneal scale and color Doppler evaluation of the left lower extremity arterial vasculature using linear high frequency transducer. FINDINGS: Left lower extremity demonstrates moderate to severe calcified atheromatous plaquing with biphasic arterial wave patterns. The distal anterior tibial artery and posterior tibial artery are incompletely evaluated due to overlying bandages and dressing. No focal stenosis or occlusion is identified. PSV(CM/SEC) Common femoral artery: 156 cm/s Profunda femoris artery: 83 cm/s Proximal superficial femoral artery: 141 cm/s Mid superficial femoral artery: 120 cm/s Distal superficial femoral artery: 115 cm/s Popliteal artery: 105 cm/s Proximal MELY: 95 cm/s Tibioperoneal trunk: 130 cm/s Proximal INDUSTRIAL AUTOMATION SPECIALIST: 78 cm/s Mid INDUSTRIAL AUTOMATION SPECIALIST: 65 cm/s Mid MELY: 97 cm/s IMPRESSION: Moderate to significant calcified atheromatous plaquing. No discrete area of stenosis or occlusion appreciated. <Electronically signed by Julián Omalley > 11/11/20 [id number]
== END ==
LOC: M RAD 15:11
PROVIDERS: ATTEND Physician Assistant
DX: I87.312 Chronic venous hypertension (idiopathic) with ulcer of left lower extremity (principal); L97.822 Non-pressure chronic ulcer of other part of left lower leg with fat layer exposed; L97.522 Non-pressure chronic ulcer of other part of left foot with fat layer exposed

== ENCOUNTER → 2020-11-11 | Outpatient (POV) | payer MEDICARE ==
[~2020-11-11] VITALS: Ht 170.2 cm; Wt 59.1 kg
[2020-11-11 09:08] VITALS: BP 119/58
--- NOTE | 2020-11-16 13:51 | IRPN ---
[facility] IR Progress Note IR Progress Note DATE: Nov 11, 2020 FOLLOW-UP: Patient was seen in the clinic today complaining of lumpiness and tenderness over the medial thigh. No fevers or chills. ON EXAMINATION: Left lower extremity normal in temperature and color. No calf tightness, tenderness or additional limb swelling. Along the treated GSV there is cordlike hardness under the skin which is tender to touch. IMAGING: I personally reviewed the post EVLT follow-up ultrasound performed a week after the procedure 10/19/2020. Treated GSV. No deep vein thrombosis. IMPRESSION: Status post EVLT of left greater saphenous vein with tenderness overlying the treated vein. Follow-up DVT study negative for DVT. Pain is likely related to the treated vein. I recommended ibuprofen 600 mg 3 times a day with food. Patient to call us back in 10 days if symptoms persist or worsen. Allergies Coded Allergies: MS - Ciprofloxacin (Unverified Allergy, Intermediate, rash, 07/21/14) MS - Bacitracin (Verified Allergy, Unknown, contact allergic dermatitis, 11/22/14) MS - Clindamycin (Unverified Allergy, Unknown, rash, 07/08/14) Patient thinks she is allergic to this med, has a rash and didnt take med today because of rash. MS - Neomycin (Verified Allergy, Unknown, contact allergic dermatitis, 11/22/14) MS - Penicillins (Verified Allergy, Unknown, RASH, 12/04/12) MS - Penicillins Cross Reactors (Verified Allergy, Unknown, RASH, 12/04/12) MS - Polymyxin B (Verified Allergy, Unknown, contact allergic dermatitis, 11/22/14) VS,Fishbone, I+O VS, Fishbone, I+O Vital Signs Date Time Temp Pulse Resp B/P (MAP) Pulse Ox O2 Delivery O2 Flow Rate FiO2 11/11/20 09:08 97.5 74 16 119/58 (78) 98 Room Air LANNY SOTO MD Nov 16, 2020 13:51
== END ==
LOC: M IRPOV 08:53
PROVIDERS: ATTEND Radiology Diagnostic Radiology
DX: Z48.812 Encounter for surgical aftercare following surgery on the circulatory system (principal); M79.652 Pain in left thigh; I87.312 Chronic venous hypertension (idiopathic) with ulcer of left lower extremity; L97.822 Non-pressure chronic ulcer of other part of left lower leg with fat layer exposed; L97.522 Non-pressure chronic ulcer of other part of left foot with fat layer exposed
CPT/HCPCS: 93926; G0463

== ENCOUNTER → 2020-12-06 | Outpatient (POV) | payer MEDICARE ==
[~2020-12-06] VITALS: Ht 172.7 cm; Wt 60.0 kg
[2020-12-06 13:15] VITALS: BP 122/58
--- NOTE | 2020-12-07 16:02 | IRCOV ---
[facility] IR Consult Office Visit IR Consult Office Visit DATE: Dec 06, 2020 REASON FOR CONSULTATION/CHIEF COMPLAINT: Nonhealing right lower extremity ulcer. HISTORY OF PRESENT ILLNESS: 75-year-old female with bilateral left greater than right lower extremity swelling and venous ulcerations. Patient had left greater saphenous vein reflux and is now status post EVLT. Patient had left lower extremity arterial ultrasound which demonstrated no significant occlusions. Patient has prior right lower extremity venous reflux study which showed right GSV reflux. Patient states both legs ache all the time. They swell up. She gets burning along the ulcerations which are on the lateral and medial margins of the lower leg. She cannot tolerate compression therapy because of the burning sensation. She denies pain with leg elevation. She denies intermittent claudication, chest pain, orthopnea or paroxysmal nocturnal dyspnea. No prior cold leg, gangrene or amputations. No prior deep vein thrombosis. ALLERGIES: Please see below. HOME MEDICATIONS: Please see below. PAST MEDICAL HISTORY: Diabetes Hiatal hernia GI reflux Venous disease Skin cancer Broken hip PAST SURGICAL HISTORY: Cholecystectomy Right hip surgery FAMILY HISTORY: Noncontributory SOCIAL HISTORY: Nonsmoker. Denies alcohol or drugs. REVIEW OF SYSTEMS: Otherwise negative. PHYSICAL EXAMINATION: VITAL SIGNS: Please see below. GENERAL APPEARANCE: Appears well. Comfortable at rest. HEENT: No scleral icterus. RESPIRATORY: Normal breathing at rest. CARDIOVASCULAR: Normal rate. ABDOMEN: Non-distended. EXTREMITIES: Left lower extremity: Compression dressing to the knee. Edema to knee. Normal color and temperature. Bulging varicose veins. Left medial thigh tenderness from EVLT has resolved. Calf soft nontender. Right lower extremity: Compression dressing to the knee. Edema to the knee, less so than the left leg. Color normal. Temperature normal. NEUROLOGICAL: Alert and oriented. PSYCHIATRIC: Appropriate to circumstance. LABORATORY DATA: 10/12/2020 hemoglobin 10.1 hematocrit 31.6 WBC 4.1 platelets 117. Imaging: I personally reviewed a right lower extremity venous study performed in 2010. This demonstrates right GSV reflux. There is a right lower extremity arterial ultrasound which was performed in 2019 which reports no significant stenosis or occlusion. ASSESSMENT/PLAN: 75-year-old female with bilateral lower extremity greater saphenous vein reflux and nonhealing venous ulcers. She is now status post left lower extremity EVLT. Patient would benefit from right lower extremity EVLT. Patient would like to hold off for now. Right lower extremity arterial ultrasound in 2019 identified no significant stenosis or occlusion. Patient does not have any rest pain or arterial ulcerations at present. I spent 30 minutes in consultation with the patient. Thank you for this referral. Cc Ene Ornelas Allergies Coded Allergies: MS - Ciprofloxacin (Unverified Allergy, Intermediate, rash, 07/21/14) MS - Bacitracin (Verified Allergy, Unknown, contact allergic dermatitis, 11/22/14) MS - Clindamycin (Unverified Allergy, Unknown, rash, 07/08/14) Patient thinks she is allergic to this med, has a rash and didnt take med today because of rash. MS - Neomycin (Verified Allergy, Unknown, contact allergic dermatitis, 11/22/14) MS - Penicillins (Verified Allergy, Unknown, RASH, 12/04/12) MS - Penicillins Cross Reactors (Verified Allergy, Unknown, RASH, 12/04/12) MS - Polymyxin B (Verified Allergy, Unknown, contact allergic dermatitis, 11/22/14) Home Medications Scheduled Buspirone HCl (Buspirone HCl), 5 MG PO BID, (Reported) Magnesium Oxide (Magnesium), 400 MG PO DAILY Metformin HCl (Metformin HCl), 500 MG PO BID, (Reported) Omeprazole (Omeprazole), 40 MG PO DAILY, (Reported) Potassium Chloride (Potassium Chloride), 10 MEQ PO DAILY, (Reported) Sucralfate (Carafate), 1 GM PO AC, (Reported) Scheduled PRN Acetaminophen (Acetaminophen), 650 MG PO Q6H PRN for PAIN, (Reported) Diphenhydramine HCl (Diphenhydramine HCl), 25 MG PO Q6H PRN for ALLERGY SYMPTOMS, (Reported) VS, I&O, 24H, Fishbone Vital Signs/I&O Vital Signs Date Time Temp Pulse Resp B/P (MAP) Pulse Ox O2 Delivery O2 Flow Rate FiO2 12/06/20 13:15 98.2 60 18 122/58 (79) 97 Room Air LANNY SOTO MD Dec 07, 2020 16:02
== END ==
LOC: M IRPOV 13:04
PROVIDERS: ATTEND Radiology Diagnostic Radiology
DX: I87.2 Venous insufficiency (chronic) (peripheral) (principal); L97.919 Non-pressure chronic ulcer of unspecified part of right lower leg with unspecified severity; L97.929 Non-pressure chronic ulcer of unspecified part of left lower leg with unspecified severity; M79.604 Pain in right leg; M79.605 Pain in left leg; E11.9 Type 2 diabetes mellitus without complications; K44.9 Diaphragmatic hernia without obstruction or gangrene; K21.9 Gastro-esophageal reflux disease without esophagitis; Z85.828 Personal history of other malignant neoplasm of skin

== ENCOUNTER → 2020-12-19 | Outpatient (CLI) | payer MEDICARE ==
--- NOTE | 2020-12-19 13:44 | REP ---
INDICATION: PAD. TECHNIQUE: Real time mcneal scale and color Doppler evaluation of the left lower extremity arterial vasculature using linear high frequency transducer. FINDINGS: The ankle to brachial index of the right lower extremity is 1.2 and likely erroneously elevated due to extensive calcified atherosclerotic changes. Moderate to significant calcified atheromatous plaquing noted throughout the right lower extremity. Biphasic arterial wave patterns are noted with focal monophasic wave patterns identified at the tibioperoneal trunk and proximal posterior tibial artery. The anterior tibial artery dominates flow to the foot. No discrete focal area of stenosis or occlusion is identified. PSV(cm/sec) Common femoral artery: 125 cm/s Profunda femoris artery: 102 cm/s Proximal superficial femoral artery: 98 cm/s Mid superficial femoral artery: 84 cm/s Distal superficial femoral artery: 88 cm/s Popliteal artery: 77 cm/s Proximal MELY: 142 cm/s Tibioperoneal trunk: 86 cm/s Proximal TRANSACTIONAL PARALEGAL: 30 cm/s Distal TRANSACTIONAL PARALEGAL: 14-23 cm/s Distal MELY: 150 cm/s IMPRESSION: Moderate to significant atherosclerotic changes. No focal area of significant stenosis or occlusion identified. <Electronically signed by Julián Omalley > 12/19/20 [id number]
== END ==
LOC: M RAD 11:27
PROVIDERS: ATTEND Radiology Diagnostic Radiology
DX: I73.9 Peripheral vascular disease, unspecified (principal)

== ENCOUNTER → 2021-03-07 | Outpatient (POV) | payer MEDICARE ==
[~2021-03-07] VITALS: Ht 172.7 cm; Wt 51.8 kg
[~2021-03-07] MED LIST changes: +OMEP40CA4 PO; -OMEP40CA97 PO
[2021-03-07 09:30] VITALS: BP 102/67
--- NOTE | 2021-03-09 13:45 | IRPN ---
[facility] IR Progress Note IR Progress Note DATE: Mar 07, 2021 FOLLOW-UP: 75-year-old female with left lower extremity swelling and nonhealing ulcers. Patient has rest pain with leg elevation. Patient was scheduled for a left lower extremity angiogram but she canceled and wanted to be seen in clinic. She had prior left lower extremity EVLT saphenous vein incompetency. However, this ulcers are still refractory to healing. ON EXAMINATION: Left lower extremity edema ++. Warm to touch. Skin red flaky and dry. Femoral pulse 2+ popliteal pulse 1+. IMPRESSION: 75-year-old female with left lower extremity edema and nonhealing ulcers. She is now status post EVLT for saphenous vein incompetency without much improvement in ulcerations. Given her rest pain, I agree she would benefit from angiography and/or intervention as appropriate. We discussed the risks and benefits of the procedure and patient is now willing to proceed. We have scheduled the patient for left lower extremity angiography and intervention. Thank you for this referral. Cc Ene Ornelas Allergies Coded Allergies: MS - Ciprofloxacin (Unverified Allergy, Intermediate, rash, 07/21/14) MS - Bacitracin (Verified Allergy, Unknown, contact allergic dermatitis, 11/22/14) MS - Clindamycin (Unverified Allergy, Unknown, rash, 07/08/14) Patient thinks she is allergic to this med, has a rash and didnt take med today because of rash. MS - Neomycin (Verified Allergy, Unknown, contact allergic dermatitis, 11/22/14) MS - Penicillins (Verified Allergy, Unknown, RASH, 12/04/12) MS - Penicillins Cross Reactors (Verified Allergy, Unknown, RASH, 12/04/12) MS - Polymyxin B (Verified Allergy, Unknown, contact allergic dermatitis, 11/22/14) VS,Fishbone, I+O VS, Fishbone, I+O Vital Signs Date Time Temp Pulse Resp B/P (MAP) Pulse Ox O2 Delivery O2 Flow Rate FiO2 03/07/21 09:30 96.7 18 51 102/67 (79) 93 Room Air LANNY SOTO MD Mar 09, 2021 13:45
== END ==
LOC: M IRPOV 09:15
PROVIDERS: ATTEND Radiology Diagnostic Radiology
DX: I87.2 Venous insufficiency (chronic) (peripheral) (principal); L97.929 Non-pressure chronic ulcer of unspecified part of left lower leg with unspecified severity; R60.0 Localized edema; Z88.0 Allergy status to penicillin; Z88.1 Allergy status to other antibiotic agents

== ENCOUNTER 2021-03-20 09:05 | Inpatient (IN) | payer MEDICARE ==
[~2021-03-20] VITALS: Ht 172.7 cm; Wt 50.5 kg
[2021-03-20] MEDS ORDERED: FERR325T3 PO (09:31)
[2021-03-20] MEDS ORDERED: diphenhydrAMINE 50MG/ML VIAL (J1200) As Ordered ONE (09:34)
[2021-03-20] MEDS ORDERED: fentaNYL 100 MCG/2 ML INJECTION (J3010) As Ordered ONE (09:34)
[2021-03-20] MEDS ORDERED: MIDAZOLAM INJ 2MG/2ML VIAL (J2250 PER 1MG) As Ordered ONE (09:35)
[2021-03-20] MEDS ORDERED: ISOVUE-300 61% 50ML VIAL As Ordered ONE ×2 (09:35→10:10)
[2021-03-20] MEDS ORDERED: LIDOCAINE 1% MDV 20ML VIAL As Ordered ONE (09:35)
[2021-03-20] MEDS ORDERED: NS 1,000 ML IV SCH (09:40)
[2021-03-20 09:49] LABS: HEMATOCRIT 33.9 % (36.0-47.0); HEMOGLOBIN 10.6 g/dl (12.0-15.5); MEAN CORPUSCULAR HGB CONC 31.3 g/dl (32.0-36.5); MEAN CORPUSCULAR VOLUME 86.3 fl (80.0-96.0); PLATELET COUNT, AUTOMATED 132 10^3/uL (150-450); RED BLOOD COUNT 3.93 10^6/uL (4.00-5.40); WHITE BLOOD COUNT 3.7 10^3/uL (4.0-10.0)
[2021-03-20 10:15] LABS: BLOOD UREA NITROGEN 14 MG/DL (7-18); CALCIUM LEVEL 9.7 MG/DL (8.8-10.2); CARBON DIOXIDE LEVEL 27 MEQ/L (21-32); CHLORIDE LEVEL 107 MEQ/L (98-107); CREATININE FOR GFR 0.76 MG/DL (0.55-1.30); GLOMERULAR FILTRATION RATE > 60.0 (>39); GLUCOSE, FASTING 127 MG/DL (70-100); POTASSIUM SERUM 3.5 MEQ/L (3.5-5.1); SODIUM LEVEL 139 MEQ/L (136-145)
--- NOTE | 2021-03-20 10:22 | IRHP ---
[facility] IR Pre-Procedure H & P General Date of Service: Mar 20, 2021 Procedure: Same Day Surgery Interval History and Physical I have seen the patient and reviewed last H & P performed within 30 days. There is no significant interval change. History of Present Illness Chief Complaint The patient is a 75-year-old female admitted with a reason for visit of PAD. PRE-PROCEDURE DIAGNOSIS: PAD HEART: bradycardic at baseline. LUNGS: normal breathing at rest. ASA Classification ASA Classification: III-Severe systemic dis. Mallampati Score: II NPO: Yes Problems with prior sedation: No Obstructive Sleep Apnea: No Plan moderate sedation Allergies Coded Allergies: Penicillins (Verified Allergy, Unknown, RASH, 03/20/21) bacitracin (Verified Allergy, Unknown, contact allergic dermatitis, ) ciprofloxacin (Verified Allergy, Unknown, rash, 03/20/21) clindamycin (Verified Allergy, Unknown, rash, 03/20/21) neomycin (Verified Allergy, Unknown, contact allergic dermatitis, 03/20/21) polymyxin B (Verified Allergy, Unknown, contact allergic dermatitis, 03/20/21) Home Medications Scheduled Buspirone HCl (Buspirone HCl), 5 MG PO BID, (Reported) Ferrous Sulfate (Ferrous Sulfate), 1 TAB PO DAILY, (Reported) Magnesium Oxide (Magnesium), 400 MG PO DAILY Metformin HCl (Metformin HCl), 500 MG PO BID, (Reported) Omeprazole (Omeprazole), 40 MG PO DAILY, (Reported) Potassium Chloride (Potassium Chloride), 10 MEQ PO DAILY, (Reported) Sucralfate (Carafate), 1 GM PO AC, (Reported) Scheduled PRN Acetaminophen (Acetaminophen), 650 MG PO Q6H PRN for PAIN, (Reported) Diphenhydramine HCl (Diphenhydramine HCl), 25 MG PO Q6H PRN for ALLERGY SYMPTOMS, (Reported) VS, I&O, 24H, Fishbone Laboratory Data 24H LABS Laboratory Tests 2 03/20/21 09:34: Nucleated Red Blood Cells % (auto) 0.0, Anion Gap 5L, Glomerular Filtration Rate > 60.0, Calcium Level 9.7 CBC/BMP Laboratory Tests 03/20/21 09:34 LANNY SOTO MD Mar 20, 2021 10:22
[2021-03-20] MEDS ORDERED: ONDANSETRON 4MG/2ML VIAL As Ordered ONE (12:29)
[2021-03-20] MEDS ORDERED: ACETAMINOPHEN 325 MG TAB PO ONE (13:00)
[2021-03-20] MEDS ORDERED: ACETAMINOPHEN TAB 650MG DOSE (2X325MG) PO ONE (13:00)
[2021-03-20] MEDS ORDERED: NS 1,000 ML IV ONE (14:45)
[2021-03-20] MEDS ORDERED: METOPROLOL 5 MG/5 ML VIAL As Ordered ONE (15:24)
[2021-03-20] MEDS ORDERED: METOPROLOL 5 MG/5 ML VIAL IV PRN (16:40)
[2021-03-20] MEDS ORDERED: METOPROLOL TART 25 MG TABLET PO ONE ×2 (16:50→23:00)
[2021-03-20 17:30] VITALS: BP 143/61
[2021-03-20] MEDS: NS 1,000 ML IV SCH (17:58)
[2021-03-20 18:19] LABS: HEMATOCRIT 32.4 % (36.0-47.0); HEMOGLOBIN 10.7 g/dl (12.0-15.5); MEAN CORPUSCULAR HEMOGLOBIN 27.6 pg (27.0-33.0); MEAN CORPUSCULAR VOLUME 83.5 fl (80.0-96.0); PLATELET COUNT, AUTOMATED 137 10^3/uL (150-450); RED BLOOD COUNT 3.88 10^6/uL (4.00-5.40)
--- NOTE | 2021-03-20 18:26 | REP ---
INDICATION: Atrial fibrillation. COMPARISON: Comparison portable chest x-ray August 04, 2018. TECHNIQUE: Portable upright AP chest radiograph. FINDINGS: EKG electrodes are seen. The lungs are well inflated and free of infiltrate. Biapical pleuroparenchymal scarring is seen. Pleural angles are sharp. Heart size is normal. The thoracic aorta is tortuous and calcific.. IMPRESSION: No active disease. <Electronically signed by Giorgio Jay > 03/20/21 [id number]
[2021-03-20 18:35] LABS: INR 1.21; PROTHROMBIN TIME 15.6 SECONDS (12.5-14.3)
[2021-03-20] MEDS ORDERED: GLUCAGON INJ 1MG VIAL SC PRN (18:35)
[2021-03-20] MEDS ORDERED: GLUCOSE 4GM CHEW TABLET PO PRN (18:35)
[2021-03-20] MEDS ORDERED: DEXTROSE 50% 50 ML SYRINGE IV PRN (18:35)
[2021-03-20 18:36] LABS: PARTIAL THROMBOPLASTIN TIME 33.1 SECONDS (24.2-38.5)
[2021-03-20 18:56] LABS: ALT/SGPT 14 U/L (12-78); BILIRUBIN,TOTAL 0.5 MG/DL (0.2-1.0); BLOOD UREA NITROGEN 10 MG/DL (7-18); CALCIUM LEVEL 8.7 MG/DL (8.8-10.2); CARBON DIOXIDE LEVEL 24 MEQ/L (21-32); CHLORIDE LEVEL 108 MEQ/L (98-107); CREATININE FOR GFR 0.67 MG/DL (0.55-1.30); GLOMERULAR FILTRATION RATE > 60.0 (>39); GLUCOSE, FASTING 150 MG/DL (70-100); POTASSIUM SERUM 3.7 MEQ/L (3.5-5.1); SODIUM LEVEL 140 MEQ/L (136-145); TOTAL PROTEIN 7.8 GM/DL (6.4-8.2)
[2021-03-20] MEDS ORDERED: BIOT2500 PO (19:00)
[2021-03-20] MEDS ORDERED: D3 M1CAP2 PO (19:00)
[2021-03-20] MEDS ORDERED: VITMTA PO (19:00)
[2021-03-20] MEDS ORDERED: VITATAB73 PO (19:00)
[2021-03-20] MEDS ORDERED: MM S100C PO (19:00)
[2021-03-20] MEDS ORDERED: MAGN400C PO (19:00)
[2021-03-20] MEDS ORDERED: POTA1TAB21 PO (19:01)
--- NOTE | 2021-03-20 19:30 | HPEPDOC ---
General Date of Admission Mar 20, 2021 at 16:03 Date of Service: Mar 20, 2021 Chief Complaint The patient is a 75-year-old female admitted with a reason for visit of Afib W/ Rvr. History of Present Illness Mrs. Pandey is a 75 year old female with GERD and NIDDM who is here for elective left leg angiogram and developed post procedural atrial fibrillation with rapid ventricular response. She has chronic non-healing ulcers on her left leg and she was seeing Dr. Magana for vascular evaluation. When patient initially arrived, her heart rate was low and she was not given anesthesia. During the procedure, Dr. Magana did not need to intervene. After the procedure, patient develop atrial fibrillation with rapid ventricular response with heart rate between 140s to 160s. Patient was given 5mg IV Lopressor which brought heart rate down to 110s to 130s. When I saw patient, she denies any fev er/chills, malaise, chest pain, palpitations, lightheadedness, dyspnea, or abdominal pain. We discussed the risks and benefits of anticoagulation and she was agreeable to start anticoagulation. We discussed code status and she was hesitant. She wanted to speak more with her cousin to make a decision, but is okay with being full code at this time. Patient will be admitted for new onset atrial fibrillation with RVR. Home Medications Scheduled Acetaminophen (Acetaminophen) 325 Mg Tab, 650 MG PO BID, (Reported) Biotin (Biotin) 2,500 Mcg Capsule, 2,500 MCG PO DAILY, (Reported) Buspirone HCl (Buspirone HCl) 5 Mg Tablet, 5 MG PO BID, (Reported) Cholecalciferol (Vitamin D3) (Vitamin D3) 125 Mcg Capsule, 125 MCG PO DAILY, (Reported) Docusate Sodium (Stool Softener) 100 Mg Capsule, 100 MG PO DAILY, (Reported) Ferrous Sulfate (Ferrous Sulfate) 325 Mg Tablet.dr, 325 MG PO DAILY, (Reported) Magnesium Oxide (Magnesium) 400 Mg Capsule, 400 MG PO DAILY, (Reported) Metformin HCl (Metformin HCl) 500 Mg Tab, 500 MG PO BID, (Reported) Multivitamins (Thera M Plus Tablet) 1 Each Tablet, 1 TAB PO DAILY, (Reported) Omeprazole (Omeprazole) 40 Mg Cap, 40 MG PO DAILY, (Reported) Potassium Chloride (Potassium Chloride) 8 Meq Tablet.er, 8 MEQ PO DAILY, (Reported) Sucralfate (Carafate) 1 Gm Tab, 1 GM PO AC, (Reported) Vitamin B Complex (Vitamin B Complex) 1 Each Tablet, 1 TAB PO DAILY, (Reported) Allergies Coded Allergies: Penicillins (Verified Allergy, Unknown, RASH, 03/20/21) bacitracin (Verified Allergy, Unknown, contact allergic dermatitis, 03/20/21) ciprofloxacin (Verified Allergy, Unknown, rash, 03/20/21) clindamycin (Verified Allergy, Unknown, rash, 03/20/21) neomycin (Verified Allergy, Unknown, contact allergic dermatitis, 03/20/21) polymyxin B (Verified Allergy, Unknown, contact allergic dermatitis, 03/20/21) Past Medical History Medical History 1. NIDDM 2. Hiatal hernia 3. GERD 4. Peripheral vascular disease 5. Skin CA 6. New onset atrial fibrillation (occurred today on 03/20/21) Surgical History 1. Cholecystectomy 1987 2. Right hip surgery with PIN placed 08/2018 Family History Father: at 41yo, history of throat CA Mother: at 91yo, history of pneumonia Social History * Smoker: less than 1 pack/day (occationally smoke when anxious) Alcohol: sober Drugs: denies A-FIB/CHADSVASC A-FIB History Current/History of A-Fib/PAF?: Yes Current PO Anticoag Therapy: Yes Age/Risk Factor Scoring CHADSVASC: CHADSVASC Response (Comments) Value Age Risk Factor Age >/= 75 years old 2 Gender Risk Factor Female 1 Hx of CHF No 0 Hx of HTN No 0 Hx of Stroke/TIA/or VTE No 0 Hx of Diabetes Yes 1 Hx of Vascular Disease Yes 1 Total 5 Review of Systems Constitutional: Denies: Chills, Fever Eyes: Reports: Other (Has chronic blurry vision) ENT: Denies: Sore Throat Skin: Reports: Rash (ulcers of legs bilaterally) Pulmonary: Denies: Dyspnea Cardiovascular: Denies: Chest Pain, Palpitations, Lt Headedness Gastrointestinal: Denies: Abdominal Pain, Diarrhea Genitourinary: Reports: Other Symptoms (ocassional dysuria) Musculoskeletal: Reports: Back Pain (chronic) Neurological: Reports: Other Symptoms (diabetic neuropathy in legs bilaterally) Psych: Reports: Anxiety Physical Examination General Exam: Positive: Alert, Cooperative Eye Exam: Positive: EOMI; Negative: Sclera icteric ENT Exam: Positive: Atraumatic Neck Exam: Positive: Supple Chest Exam: Positive: Clear to auscultation; Negative: Rales, Rhonchi Heart Exam: Positive: Tachycardic, Irregular Rhythm Abdomen Exam: Positive: Normal bowel sounds, Soft; Negative: Tenderness Extremity Exam: Positive: Edema Neuro Exam: Positive: Normal Speech, Cranial Nerves 3-12 NL Psych Exam: Positive: Mental status NL, Anxiety Vital Signs Vital Signs Date Time Temp Pulse Resp B/P (MAP) Pulse Ox O2 Delivery O2 Flow Rate FiO2 03/20/21 17:30 96.8 77 18 143/61 (88) 97 Nasal Cannula 2.0 Laboratory Data Labs 24H Laboratory Tests 2 03/20/21 09:34: Nucleated Red Blood Cells % (auto) 0.0, Anion Gap 5L, Glomerular Filtration Rate > 60.0, Calcium Level 9.7 03/20/21 17:56: Nucleated Red Blood Cells % (auto) 0.0, Prothrombin Time 15.6H, Prothromb Time International Ratio 1.21, Activated Partial Thromboplast Time 33.1, Troponin I < 0.02, Thyroid Stimulating Hormone (TSH) 1.890 CBC/BMP Laboratory Tests 03/20/21 09:34 03/20/21 17:56 Microbiology Microbiology 03/20/21 Blood Culture, Received Pending 03/20/21 Blood Culture, Received Pending Assessment/Plan Mrs. Pandey is a 75 year old female with GERD and NIDDM who is here for elective left leg angiogram and developed new onset post procedural atrial fibrillation with rapid ventricular response. She denies any cardiovascular history, but has history of NIDDM. I discussed risk and benefits of anticoagulation and she was agreeable to anticoagulation. Will order apixaban for stroke ppx and start patient on Lopressor for rate control. TSH was ordered which was within normal limits and initial troponin was negative. Will order for an echocardiogram. Plan / VTE VTE Prophylaxis Ordered?: Yes Plan Plan 1. New onset atrial fibrillation -Patient initially bradycardic prior to procedure with heart rate of 40. Patient was asymptomatic -Post procedure, patient went into atrial fibrillation with RVR. Patient is still asymptomatic -First troponin negative -TSH within normal limits -Rate control with Lopressor -Anticoagulation with Eliquis 2. NIDDM -Sliding scale insulin and carbohydrate consistent diet 3. Left leg non-healing ulcer -Patient should continue following up with Dr. Burgos outpatient 4. Anxiety/depression -Continue buspirone 5. GERD -Continue omeprazole and sucralfate 6. DVT ppx -Patient will be on Eliquis Disposition: Pending echocardiogram and improvement in heart rate PABLITO LOJA DO Mar 20, 2021 19:15
[2021-03-20 20:00] VITALS: BP_SYST 107; BP_SYST 109; BP_DIAS 53; BP_DIAS 56
[2021-03-20] MEDS: busPIRone 5 MG TAB PO SCH (21:00)
[2021-03-20] MEDS: HumaLOG INSULIN (NovoLOG) PER UNIT SC SCH (21:00)
[2021-03-20] MEDS: ACETAMINOPHEN TAB 650MG DOSE (2X325MG) PO SCH (21:00)
[2021-03-20] MEDS: APIXABAN 5 MG TAB (ELIQUIS) PO SCH (21:00)
--- NOTE | 2021-03-20 22:40 | ECGEPIP ---
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
[2021-03-20 23:04] LABS: HEMATOCRIT 28.9 % (36.0-47.0); HEMOGLOBIN 9.5 g/dl (12.0-15.5); MEAN CORPUSCULAR HGB CONC 32.9 g/dl (32.0-36.5); MEAN CORPUSCULAR VOLUME 85.3 fl (80.0-96.0); PLATELET COUNT, AUTOMATED 111 10^3/uL (150-450); RED BLOOD COUNT 3.39 10^6/uL (4.00-5.40); WHITE BLOOD COUNT 3.9 10^3/uL (4.0-10.0)
[2021-03-20 23:49] LABS: BLOOD UREA NITROGEN 12 MG/DL (7-18); CALCIUM LEVEL 8.2 MG/DL (8.8-10.2); CARBON DIOXIDE LEVEL 29 MEQ/L (21-32); CHLORIDE LEVEL 109 MEQ/L (98-107); GLOMERULAR FILTRATION RATE > 60.0 (>39); GLUCOSE, FASTING 150 MG/DL (70-100); POTASSIUM SERUM 3.9 MEQ/L (3.5-5.1); SODIUM LEVEL 142 MEQ/L (136-145); TROPONIN I < 0.02 NG/ML (< 0.10)
[2021-03-21] VITALS (12 sets, daily range): BP systolic 72–116; BP diastolic 41–67
[2021-03-21] MEDS ORDERED: NS 250 ML IV ONE (00:05)
[2021-03-21] MEDS: NS 1,000 ML IV SCH (04:45)
[2021-03-21] MEDS ORDERED: METOPROLOL TART 25 MG TABLET PO SCH (09:00)
[2021-03-21] MEDS: OMEPRAZOLE 20 MG CAP PO SCH (09:12)
[2021-03-21] MEDS: ACETAMINOPHEN TAB 650MG DOSE (2X325MG) PO SCH ×2 (09:12→20:35)
[2021-03-21] MEDS: APIXABAN 5 MG TAB (ELIQUIS) PO SCH ×2 (09:12→20:34)
[2021-03-21] MEDS: SUCRALFATE 1 GM TAB PO SCH ×3 (09:12→17:09)
[2021-03-21] MEDS: FERROUS SULFATE 325MG TAB PO SCH (09:12)
[2021-03-21] MEDS: busPIRone 5 MG TAB PO SCH ×2 (09:13→20:34)
[2021-03-21] MEDS: MAGNESIUM OXIDE 400MG TAB (MAG-OX) PO SCH (09:13)
[2021-03-21] MEDS: DOCUSATE SODIUM 100MG CAPSULE PO SCH (09:13)
[2021-03-21] MEDS: POTASSIUM CHLORIDE 10 MEQ SR TABLET PO SCH (09:13)
[2021-03-21] MEDS: METOPROLOL TART 25 MG TABLET PO SCH ×2 (09:13→20:05)
[2021-03-21] MEDS: MULTIVITAMINS/MINERALS THERAP 1 TAB PO SCH (09:13)
[2021-03-21] MEDS: HumaLOG INSULIN (NovoLOG) PER UNIT SC SCH ×4 (09:20→20:35)
[2021-03-21 09:31] LABS: HEMATOCRIT 31.5 % (36.0-47.0); HEMOGLOBIN 9.9 g/dl (12.0-15.5); MEAN CORPUSCULAR HEMOGLOBIN 27.2 pg (27.0-33.0); MEAN CORPUSCULAR HGB CONC 31.4 g/dl (32.0-36.5); MEAN CORPUSCULAR VOLUME 86.5 fl (80.0-96.0); PLATELET COUNT, AUTOMATED 120 10^3/uL (150-450); RED BLOOD COUNT 3.64 10^6/uL (4.00-5.40); WHITE BLOOD COUNT 3.2 10^3/uL (4.0-10.0)
[2021-03-21 10:13] LABS: BLOOD UREA NITROGEN 10 MG/DL (7-18); CARBON DIOXIDE LEVEL 28 MEQ/L (21-32); CHLORIDE LEVEL 109 MEQ/L (98-107); CREATININE FOR GFR 0.61 MG/DL (0.55-1.30); GLOMERULAR FILTRATION RATE > 60.0 (>39); GLUCOSE, FASTING 130 MG/DL (70-100); MAGNESIUM LEVEL 1.4 MG/DL (1.8-2.4); POTASSIUM SERUM 3.6 MEQ/L (3.5-5.1); SODIUM LEVEL 141 MEQ/L (136-145)
--- NOTE | 2021-03-21 13:24 | IPNPDOC ---
Text Note Date of Service The patient was seen on 03/21/21. NOTE Subjective: 75-year-old female who presented for elective left leg angiogram developed postprocedural atrial fibrillation with rapid ventricular response. Patient received 5 mg of IV Lopressor which brought the patient's heart rate from the 140s to 160s to the 110s to 130s. Patient denied any difficulty or palpitations. Patient did well overnight but her heart rate does go up into the 120s to 130s with movement or when the patient becomes nervous. Patient will continue with anticoagulation. Patient is otherwise feeling well today. Review of systems: General: Patient denies fevers HEENT: Patient denies headaches Cardiovascular: Patient denies chest pain Respiratory: Patient denies shortness of breath, cough GI: Patient denies abdominal pain, nausea, vomiting, diarrhea : Patient denies increased frequency or pain with urination Extremities: Patient denies swelling or pain in extremities Neurological: Patient denies numbness or tingling in legs Physical exam: Vitals: See below General: Alert and oriented female patient who was sitting up in bed when I w alked into the room. Patient did not appear to be in any acute distress. HEENT: Normocephalic, atraumatic, moist mucous membranes. Neck: No lymphadenopathy or thyromegaly Cardiac: Irregularly irregular rhythm with a nontachycardic rate however, during the examination, patient did become tachycardic with a rate about 120, no murmurs, normal S1, normal S2 Pulm: Clear to auscultation bilaterally. No wheezes, rhonchi, rales Abd: Nondistended, nontender to palpation, normal bowel sounds Ext: No edema bilateral lower extremities Labs: See below Imaging: Chest x-ray performed on 03/20/2021 is reported to show no active disease. Assessment/plan: Patient is a 75-year-old female who presented to the hospital for elective left leg angiogram developed postprocedural atrial fibrillation with. 1. New onset atrial fibrillation. Patient was initially bradycardic prior to the procedure with a heart rate in the 40s. Patient is currently on 25 mg of metoprolol twice daily. Patient does have episodes of bradycardia. We will continue to monitor her rate at this point. Patient is now anticoagulated with Eliquis. 2. Ryl-gwycuwr-gwmrnnkmb pending diabetes mellitus. Sliding scale insulin and consistent carb diet. 3. Left leg nonhealing ulcer. Patient should continue to follow with Dr. Lynn gutiérrez outpatient. 4. Anxiety depression. Continue buspirone. 5. GERD. Continue omeprazole and sucralfate. 6. Underweight. Patient's BMI is 17. We will add Ensure to the patient's trays. DVT Prophylaxis: Full anticoagulation with Eliquis Disposition: Pending improvement in the patient's heart rate. Most likely discharge within the next 24 hours. VS,Fishbone, I+O VS, Fishbone, I+O Laboratory Tests 03/20/21 17:56 03/20/21 22:59 03/21/21 08:56 Vital Signs Date Time Temp Pulse Resp B/P (MAP) Pulse Ox O2 Delivery O2 Flow Rate FiO2 03/21/21 12:00 98.5 63 16 113/53 (73) 99 Room Air 03/21/21 00:00 I&O- Last 24 Hours up to 6 AM 03/21/21 05:59 Intake Total 375 ml Balance 375 ml UMAIR POTTER DO Mar 21, 2021 13:24
--- NOTE | 2021-03-21 18:42 | ECHO ---
ECHOCARDIOGRAM DATE OF PROCEDURE: 03/21/2021 Age: 75 Gender: Female Height: 68 inches Weight: 51 kg. REFERRING PHYSICIAN: Juwan Regan M.D. INDICATION: Cardiac dysrhythmias, unspecified. MEASUREMENTS: 2D Measurements: Aortic root 2.9 cm Left atrium 2.7 cm Interventricular septum 1.04 cm Posterior wall 0.99 cm Left ventricle diastole 3.9 cm Inferior vena cava 2.4 cm (more than 50% respiratory variation) Doppler measurements: No aortic stenosis No aortic regurgitation Aortic valve velocity 102 cm/sec No mitral regurgitation Mitral E velocity 84.0 cm/sec Mitral A velocity 98.1 cm/sec Mitral deceleration time 251 msec Mild tricuspid regurgitation Estimated right ventricle systolic pressure 23-28 mmHg Estimated right atrial pressure of 5-10 mmHg No pulmonic regurgitation Pulmonary artery acceleration time 137 msec MITRAL ANNULAR TISSUE DOPPLER: E prime septal 6.1 cm/s E prime lateral 7.8 cm/sec DESCRIPTION: Rhythm was sinus. No pericardial effusion. Image quality was fair. This was a 2D, M-mode, color flow Doppler and pulsed wave Doppler examination including mitral annular tissue Doppler. CONCLUSIONS: 1. Normal left ventricle internal dimensions and wall thickness. Normal regional left ventricular (LV) wall motion and wall thickening. Normal LV systolic function with left ventricular ejection fraction (LVEF) 60% by visual estimate. Grade 1 LV diastolic dysfunction. 2. Severe mitral annular calcification. No mitral stenosis or regurgitation. 3. Mild aortic valve sclerosis at the A3-cuspid aortic valve. No aortic regurgitation. 4. Tiny pericardial effusion. No diastolic chamber collapse. 5. Normal right ventricle size and systolic function. Normal pulmonary increased systolic pressure and estimated right ventricle systolic pressure.
[2021-03-22] VITALS (7 sets, daily range): BP systolic 102–122; BP diastolic 56–65
[2021-03-22] MEDS: NS 1,000 ML IV SCH (01:00)
[2021-03-22 07:54] LABS: HEMATOCRIT 33.9 % (36.0-47.0); HEMOGLOBIN 10.9 g/dl (12.0-15.5); MEAN CORPUSCULAR HEMOGLOBIN 27.5 pg (27.0-33.0); MEAN CORPUSCULAR HGB CONC 32.2 g/dl (32.0-36.5); MEAN CORPUSCULAR VOLUME 85.4 fl (80.0-96.0); PLATELET COUNT, AUTOMATED 129 10^3/uL (150-450); RED BLOOD COUNT 3.97 10^6/uL (4.00-5.40); WHITE BLOOD COUNT 3.4 10^3/uL (4.0-10.0)
[2021-03-22 08:06] LABS: BLOOD UREA NITROGEN 7 MG/DL (7-18); CALCIUM LEVEL 8.2 MG/DL (8.8-10.2); CARBON DIOXIDE LEVEL 28 MEQ/L (21-32); CHLORIDE LEVEL 109 MEQ/L (98-107); CREATININE FOR GFR 0.59 MG/DL (0.55-1.30); GLOMERULAR FILTRATION RATE > 60.0 (>39); GLUCOSE, FASTING 140 MG/DL (70-100); MAGNESIUM LEVEL 1.6 MG/DL (1.8-2.4); POTASSIUM SERUM 3.7 MEQ/L (3.5-5.1); SODIUM LEVEL 142 MEQ/L (136-145)
[2021-03-22] MEDS ORDERED: AMIODARONE HCL 360 MG in IV 1 EA IV SCH ×4 (08:30)
[2021-03-22] MEDS ORDERED: AMIODARONE HCL 150 MG in IV 1 EA IV ONE (08:30)
[2021-03-22] MEDS: busPIRone 5 MG TAB PO SCH ×2 (08:37→20:38)
[2021-03-22] MEDS: OMEPRAZOLE 20 MG CAP PO SCH (08:37)
[2021-03-22] MEDS: MAG SULF 1GM/100ML (MAG RUN) 1 GM in IV 1 EA IV SCH ×2 (08:37→13:21)
[2021-03-22] MEDS: FERROUS SULFATE 325MG TAB PO SCH (08:37)
[2021-03-22] MEDS: ACETAMINOPHEN TAB 650MG DOSE (2X325MG) PO SCH ×2 (08:38→20:38)
[2021-03-22] MEDS: MAGNESIUM OXIDE 400MG TAB (MAG-OX) PO SCH (08:38)
[2021-03-22] MEDS: METOPROLOL TART 25 MG TABLET PO SCH ×3 (08:38→18:33)
[2021-03-22] MEDS: APIXABAN 5 MG TAB (ELIQUIS) PO SCH ×2 (08:38→20:37)
[2021-03-22] MEDS: SUCRALFATE 1 GM TAB PO SCH ×3 (08:39→18:34)
[2021-03-22] MEDS: MULTIVITAMINS/MINERALS THERAP 1 TAB PO SCH (08:39)
[2021-03-22] MEDS: POTASSIUM CHLORIDE 10 MEQ SR TABLET PO SCH (08:39)
[2021-03-22] MEDS: DOCUSATE SODIUM 100MG CAPSULE PO SCH (08:39)
[2021-03-22] MEDS: HumaLOG INSULIN (NovoLOG) PER UNIT SC SCH ×4 (08:44→21:00)
[2021-03-22] MEDS ORDERED: SLF 3 ML SYR IV PRN (09:40)
--- NOTE | 2021-03-22 10:48 | IRPON ---
IR Postoperative Note Date Of Procedure: Mar 20, 2021 Time Of Procedure: 16:00 IR Postoperative Note IR Left leg angiogram IR Left below-knee runoff arteriogram. IR Ultrasound-guided right common femoral artery access. Clinical Information:Left lower extremity rest pain. Nonhealing wounds. Physician: Dr. Magana. Procedure: The patient was advised of the benefits, risks, and alternatives of the proce dure and informed consent was obtained. A time out was performed with verification of the patient's name, MRN, site of procedure, and type of procedure to be performed. The patient was positioned in the supine position on the angiographic table. The site was prepped and draped in the usual sterile fashion. Moderate sedation was not performed due to patient's baseline bradycardia. The physician spent 90 minutes of continuous zfxl-nx-iyrj time with the patient. A radio host radiograph reveals hardware in the right hip. Ultrasound of the right groin demonstrates patent calcified right common femoral artery. Lidocaine was used for local anesthesia. The right common femoral artery was accessed, under ultrasound guidance with a microintroducer set. A short 0.018" [place] wire was inserted and the needle was exchanged for a 4 Fr microintroducer sheath. The guidewire and dilator were removed and a 0.035" [place] wire was advanced under fluoroscopy guidance and placed into the abdominal aorta. A 6 Fr sheath was placed over the wire. An Omni flush catheter was advanced over the wire, under fluoroscopy guidance and used to catheterize the infrarenal abdominal aorta. A pelvic arteriogram was performed. This demonstrates patent infrarenal abdominal aorta. Patent aortic bifurcation, patent bilateral common iliac, internal iliac and external iliac arteries. Patent bilateral common femoral ar teries, patent proximal superficial femoral artery and profunda femoris. The wire was advanced through the flush catheter and used to gain up in over access into the left common iliac artery. The catheter was removed over the wire. A Glidecath was advanced over the wire, under fluoroscopy guidance and used to catheterize the left common femoral artery. A left leg angiogram was performed, which demonstrates patent proximal, mid and distal superficial femoral artery. Patient profunda femoris. No significant stenosis or occlusion. Angiography further down the left leg was performed and this demonstrates patent proximal, mid and distal popliteal artery, without stenosis or occlusion. Patent anterior tibial artery, tibia peroneal trunk, proximal peroneal and proximal posterior tibial artery. A runoff below-knee arteriogram to the left foot was performed. This demonstrates patent proximal, mid and distal anterior tibial artery and patent dorsalis pedis. Patent peroneal artery to the ankle where it bifurcates, s upplying collaterals of the distal posterior tibial artery. Small posterior tibial artery with microvascular disease, which is aided by collaterals from the hypertrophied peroneal artery and courses into the foot supplying calcaneal and plantar branches. There is vascular blush at the posterior ankle in the region of the ulceration. Catheter, wire and sheath were removed, a 6 [place] Mynx device was used to close the right groin arteriotomy, pressure held and hemostasis achieved. A sterile dressing was applied to the site. The patient tolerated the procedure well and was returned to the PRU in stable condition. EBL: < 5 mL. Complications:None. Impression: 1. Left leg angiogram demonstrates patent inflow. Patent left common iliac, external iliac, common femoral, superficial femoral, profunda femoris and popliteal artery. 2. Below-knee arterial runoff demonstrates patent and hypertrophied anterior tibial artery and peroneal artery. Small posterior tibial artery with microvascular disease aided by collaterals from the peroneal artery. Vascular blush at the posterior ankle in region of ulceration. Thank you for this referral. Cc LANNY Olmstead MD Mar 22, 2021 10:48
--- NOTE | 2021-03-22 12:57 | IPNPDOC ---
Text Note Date of Service The patient was seen on 03/22/21. NOTE Subjective: 75-year-old female presented for elective left leg angiogram leah mayid postprocedural atrial fibrillation with rapid ventricular response. Patient did well throughout the day yesterday however, overnight and into early this morning, patient did have a run of atrial fibrillation with rapid ventricular response with heart rates ranging anywhere from 140-170. Patient was resting comfortably while in house in the room and did not complain of any chest pain or palpitations. Patient's heart rate was in the 150s to 170s when I was speaking with her. Patient states that she is feeling otherwise well and does not have any other complaints today. Review of systems: General: Patient denies fevers HEENT: Patient denies headaches Cardiovascular: Patient denies chest pain Respiratory: Patient denies shortness of breath, cough GI: Patient denies abdominal pain, nausea, vomiting, diarrhea : Patient denies increased frequency or pain with urination Extremities: Patient denies swelling or pain in extremities Neurological: Patient denies numbness or tingling in legs Physical exam: Vitals: See below General: Alert and oriented female patient who was sitting in the chair I walked into the room. Patient did not appear to be in any acute distress. HEENT: Normocephalic, atraumatic, moist mucous membranes. Neck: No lymphadenopathy or thyromegaly Cardiac: Irregularly irregular rhythm with a tachycardic rate, no murmurs, normal S1, normal S2 Pulm: Clear to auscultation bilaterally. No wheezes, rhonchi, rales Abd: Nondistended, nontender to palpation, normal bowel sounds Ext: No edema bilateral lower extremities, patient does have a wound on her left lower bob that is wrapped. Labs: See below Imaging: No new imaging has been performed Assessment/plan: 75-year-old female presented to the hospital for elective left leg angiogram developed postprocedural atrial fibrillation with rapid ventricular response. 1. New onset atrial fibrillation. Patient was initially bradycardic prior to her procedure but developed atrial fibrillation with RVR. Patient had an episode of RVR today. I have increased the patient metoprolol from 25 mg twice daily to 4 times daily. Patient did receive a dose of metoprolol 5 mg IV. Patient's heart rate did come back under control but if we are unable to control her heart rate, patient will be started on amiodarone. 2. Til-lhnzcax-cgxfccqwv diabetes mellitus. Sliding scale and consistent carb diet. 3. Left leg nonhealing ulcer. Patient should continue to follow with Dr. Garner outpatient but dressing will need to be changed today. 4. Anxiety depression. Continue buspirone. 5. GERD. Continue omeprazole and sucralfate. 6. Underweight. Patient's BMI 17. Ensure has been added to her trays. DVT Prophylaxis: Full anticoagulation with Eliquis Disposition: Pending improvement in patient's heart rate. Discharge next 24 to 48 hours. VS,Fishbone, I+O VS, Fishbone, I+O Laboratory Tests 03/22/21 07:27 Vital Signs Date Time Temp Pulse Resp B/P (MAP) Pulse Ox O2 Delivery O2 Flow Rate FiO2 03/22/21 12:00 98.7 71 16 106/56 (73) 95 Room Air 03/21/21 00:00 I&O- Last 24 Hours up to 6 AM 03/22/21 06:00 Intake Total 1900 ml Balance 1900 ml UMAIR POTTER DO Mar 22, 2021 12:57
[2021-03-22] MEDS: SLF 3 ML SYR IV SCH ×2 (13:22→22:00)
[2021-03-23] VITALS (7 sets, daily range): BP systolic 98–129; BP diastolic 54–72
--- NOTE | 2021-03-23 02:55 | IPNPDOC ---
Date Seen The patient was seen on 03/23/21. Progress Note RN called re: TELE Afib w HR 30's asymptomatic. Patient is awake and alert. sbp 112mmhg. Plan: holding parameters on Metoprolol may need pacemaker if persistent metoprolol-induced bradycardia. continue telemetry VS, I&O, 24H, Fishbone Vital Signs/I&O Vital Signs Date Time Temp Pulse Resp B/P (MAP) Pulse Ox O2 Delivery O2 Flow Rate FiO2 03/22/21 18:20 80 112/57 (75) 03/22/21 16:00 98.6 16 99 Room Air 03/21/21 00:00 I&O- Last 24 Hours up to 6 AM 03/23/21 06:00 Intake Total 1265 ml Output Total 0 ml Balance 1265 ml Laboratory Data 24H LABS Laboratory Tests 2 03/22/21 07:27: Nucleated Red Blood Cells % (auto) 0.0, Anion Gap 5L, Glomerular Filtration Rate > 60.0, Calcium Level 8.2L, Magnesium Level 1.6L 03/22/21 12:09: Bedside Glucose (Misc Panel) 179H 03/22/21 18:13: Bedside Glucose (Misc Panel) 89 03/22/21 20:46: Bedside Glucose (Misc Panel) 185H CBC/BMP Laboratory Tests 03/22/21 07:27 Microbiology Microbiology 03/20/21 Blood Culture - Preliminary, Resulted No Growth after 48 hours. All Specime... 03/20/21 Blood Culture - Preliminary, Resulted No Growth after 48 hours. All Specime... IVETTE MCFARLAND MD Mar 23, 2021 02:55
[2021-03-23] MEDS: METOPROLOL TART 25 MG TABLET PO SCH ×5 (05:09→22:00)
[2021-03-23 08:03] LABS: HEMATOCRIT 28.6 % (36.0-47.0); HEMOGLOBIN 9.2 g/dl (12.0-15.5); MEAN CORPUSCULAR HEMOGLOBIN 27.2 pg (27.0-33.0); MEAN CORPUSCULAR HGB CONC 32.2 g/dl (32.0-36.5); MEAN CORPUSCULAR VOLUME 84.6 fl (80.0-96.0); PLATELET COUNT, AUTOMATED 110 10^3/uL (150-450); RED BLOOD COUNT 3.38 10^6/uL (4.00-5.40); WHITE BLOOD COUNT 3.2 10^3/uL (4.0-10.0)
[2021-03-23 08:25] LABS: BLOOD UREA NITROGEN 11 MG/DL (7-18); CALCIUM LEVEL 8.3 MG/DL (8.8-10.2); CARBON DIOXIDE LEVEL 25 MEQ/L (21-32); CHLORIDE LEVEL 108 MEQ/L (98-107); CREATININE FOR GFR 0.68 MG/DL (0.55-1.30); GLOMERULAR FILTRATION RATE > 60.0 (>39); GLUCOSE, FASTING 130 MG/DL (70-100); MAGNESIUM LEVEL 2.3 MG/DL (1.8-2.4); POTASSIUM SERUM 3.4 MEQ/L (3.5-5.1); SODIUM LEVEL 140 MEQ/L (136-145)
[2021-03-23] MEDS: ACETAMINOPHEN TAB 650MG DOSE (2X325MG) PO SCH ×2 (09:22→21:10)
[2021-03-23] MEDS: DOCUSATE SODIUM 100MG CAPSULE PO SCH (09:22)
[2021-03-23] MEDS: HumaLOG INSULIN (NovoLOG) PER UNIT SC SCH ×4 (09:22→21:00)
[2021-03-23] MEDS: POTASSIUM CHLORIDE 10 MEQ SR TABLET PO SCH (09:23)
[2021-03-23] MEDS: OMEPRAZOLE 20 MG CAP PO SCH (09:23)
[2021-03-23] MEDS: MAGNESIUM OXIDE 400MG TAB (MAG-OX) PO SCH (09:23)
[2021-03-23] MEDS: SUCRALFATE 1 GM TAB PO SCH ×3 (09:23→17:30)
[2021-03-23] MEDS: APIXABAN 5 MG TAB (ELIQUIS) PO SCH ×2 (09:23→21:12)
[2021-03-23] MEDS: busPIRone 5 MG TAB PO SCH ×2 (09:23→21:10)
[2021-03-23] MEDS: FERROUS SULFATE 325MG TAB PO SCH (09:23)
[2021-03-23] MEDS: MULTIVITAMINS/MINERALS THERAP 1 TAB PO SCH (09:23)
[2021-03-23] MEDS: SLF 3 ML SYR IV SCH ×3 (09:24→22:00)
--- NOTE | 2021-03-23 15:42 | IPNPDOC ---
Text Note Date of Service The patient was seen on 03/23/21. NOTE Subjective: 35-year-old female presented for left leg angiogram procedure and developed postprocedural atrial fibrillation with rapid ventricular rate. Patient did well throughout the day however, yesterday she became very bradycardic overnight into the 30s. Her metoprolol overnight was held and the patient's heart rate this morning was in the 120s. Patient is otherwise feeling well. Patient did not have her dressing changed yesterday but with this will be done today. Patient denies any other complaints today. Review of systems: General: Patient denies fevers HEENT: Patient denies headaches Cardiovascular: Patient denies chest pain Respiratory: Patient denies shortness of breath, cough GI: Patient denies abdominal pain, nausea, vomiting, diarrhea : Patient denies increased frequency or pain with urination Extremities: Patient reports swelling in her left lower extremity Neurological: Patient denies numbness or tingling in legs Physical exam: Vitals: See below General: Alert and oriented female patient who was walking back from the bathroom when I walked in the room. Patient did not appear to be in any acute distress. HEENT: Normocephalic, atraumatic, moist mucous membranes. Neck: No lymphadenopathy or thyromegaly Cardiac: Irregularly irregular rhythm with a nontachycardic rate, no murmurs, normal S1, normal S2 Pulm: Clear to auscultation bilaterally. No wheezes, rhonchi, rales Abd: Nondistended, nontender to palpation, normal bowel sounds Ext: Edema in the left lower extremity, patient does have a wound on the left lower bob that is wrapped and there is no serosanguineous drainage on the outside. Labs: See below Imaging: No new imaging has been performed Assessment/plan: 75-year-old female present to the hospital for elective left foot angiogram and developed postprocedural atrial fibrillation with rapid ventricular response. 1. New onset atrial fibrillation. Patient was initially bradycardic prior to procedure and developed A. fib with RVR. Patient had an episode of RVR this morning along with an episode of bradycardia overnight. Patient's metoprolol was changed to 25 mg 3 times daily and we will continue to monitor. Plan is to discharge the patient tomorrow. 2. Ekz-cngufkt-ndkmqiatg diabetes mellitus. Sliding scale and consistent carb diet. 3. Left leg nonhealing ulcer. Patient will continue to follow with Dr. Burgos outpatient. Dressing will be changed today. 4. Anxiety/depression. Continue buspirone. 5. GERD. Continue omeprazole and sucralfate. 6. Underweight. Patient's BMI is 17. Ensure has been added to her trays. DVT Prophylaxis: Full anticoagulation with Eliquis Disposition: Pending improvement in the patient's heart rate. Goal is for discharge tomorrow VS,Yissel, I+O VS, Yissel, I+O Laboratory Tests 03/23/21 07:40 Vital Signs Date Time Temp Pulse Resp B/P (MAP) Pulse Ox O2 Delivery O2 Flow Rate FiO2 03/23/21 15:25 65 109/72 03/23/21 12:00 99.1 17 96 Room Air 03/21/21 00:00 I&O- Last 24 Hours up to 6 AM 03/23/21 06:00 Intake Total 1265 ml Output Total 0 ml Balance 1265 ml UMAIR POTTER DO Mar 23, 2021 15:42
[2021-03-23] MEDS ORDERED: ELIQ5TAB PO (15:43)
[2021-03-24] VITALS: BP 115/67
[2021-03-24 04:03] VITALS: BP 107/51
[2021-03-24 05:30] LABS: HEMATOCRIT 26.9 % (36.0-47.0); HEMOGLOBIN 8.7 g/dl (12.0-15.5); MEAN CORPUSCULAR HEMOGLOBIN 27.3 pg (27.0-33.0); MEAN CORPUSCULAR HGB CONC 32.3 g/dl (32.0-36.5); MEAN CORPUSCULAR VOLUME 84.3 fl (80.0-96.0); PLATELET COUNT, AUTOMATED 103 10^3/uL (150-450); RED BLOOD COUNT 3.19 10^6/uL (4.00-5.40); WHITE BLOOD COUNT 3.3 10^3/uL (4.0-10.0)
[2021-03-24] MEDS: METOPROLOL TART 25 MG TABLET PO SCH (05:40)
[2021-03-24 05:53] LABS: BLOOD UREA NITROGEN 15 MG/DL (7-18); CALCIUM LEVEL 8.2 MG/DL (8.8-10.2); CARBON DIOXIDE LEVEL 27 MEQ/L (21-32); CHLORIDE LEVEL 107 MEQ/L (98-107); CREATININE FOR GFR 0.62 MG/DL (0.55-1.30); GLOMERULAR FILTRATION RATE > 60.0 (>39); GLUCOSE, FASTING 126 MG/DL (70-100); MAGNESIUM LEVEL 1.9 MG/DL (1.8-2.4); POTASSIUM SERUM 3.7 MEQ/L (3.5-5.1); SODIUM LEVEL 139 MEQ/L (136-145)
[2021-03-24] MEDS: SLF 3 ML SYR IV SCH (06:13)
[2021-03-24 08:00] VITALS: BP 113/65
[2021-03-24] MEDS ORDERED: METO1TAB87 PO (08:08)
[2021-03-24] MEDS: HumaLOG INSULIN (NovoLOG) PER UNIT SC SCH (09:03)
[2021-03-24] MEDS: MULTIVITAMINS/MINERALS THERAP 1 TAB PO SCH (09:03)
[2021-03-24] MEDS: ACETAMINOPHEN TAB 650MG DOSE (2X325MG) PO SCH (09:04)
[2021-03-24] MEDS: OMEPRAZOLE 20 MG CAP PO SCH (09:04)
[2021-03-24] MEDS: FERROUS SULFATE 325MG TAB PO SCH (09:04)
[2021-03-24] MEDS: busPIRone 5 MG TAB PO SCH (09:04)
[2021-03-24] MEDS: MAGNESIUM OXIDE 400MG TAB (MAG-OX) PO SCH (09:04)
[2021-03-24] MEDS: POTASSIUM CHLORIDE 10 MEQ SR TABLET PO SCH (09:04)
[2021-03-24] MEDS: DOCUSATE SODIUM 100MG CAPSULE PO SCH (09:04)
[2021-03-24] MEDS: SUCRALFATE 1 GM TAB PO SCH (09:05)
[2021-03-24] MEDS: APIXABAN 5 MG TAB (ELIQUIS) PO SCH (09:42)
--- NOTE | 2021-03-24 17:55 | DS.PDOC ---
Discharge Summary General Date of Admission Mar 20, 2021 at 16:03 Date of Discharge 03/24/2021 Attending Physician: UMAIR POTTER DO Discharge Summary PROCEDURES PERFORMED DURING STAY: None. ADMITTING DIAGNOSES: 1. New onset atrial fibrillation with rapid ventricular response 2. Wzx-ftnkksg-rewfvwhta diabetes 3. Left leg nonhealing ulcer 4. Anxiety/depression 5. GERD DISCHARGE DIAGNOSES: 1. New onset atrial fibrillation with rapid ventricular response, improved 2. Nby-asrskpj-jymurtccs diabetes mellitus 3. Left leg nonhealing ulcer 4. Anxiety/depression 5. GERD COMPLICATIONS/CHIEF COMPLAINT: Afib W/ Rvr. HISTORY OF PRESENT ILLNESS: Patient is a 75-year-old female who presented to the hospital for an elective left leg angiogram and developed postprocedural atrial fibrillation with rapid ventricular response. Patient has a chronic nonhealing ulcer on her left leg and was seeing Dr. Magana for vascular evaluation. When the patient initially arrived, her heart rate was low and she is not giving anesthesia. During the procedure, Dr. Magana did not need to intervene. After the procedure the patient developed atrial fibrillation with a rapid ventricular response with heart rates between the 140s and 160s. Patient was given 5 mg of IV Lopressor which brought her heart rate down to the 110s to 130s. Patient did not complain of any symptoms and was admitted for further evaluation.. HOSPITAL COURSE: Patient was initially started on metoprolol 25 mg twice daily which was able to control her heart rate however, patient did have a run of atrial fibrillation with RVR into the 170s on her third day of hospitalization. Patient was given an additional dose of 5 mg of IV Lopressor and was switched to 25 mg 4 times daily metoprolol. Patient became very bradycardic down into the 30s with this extra dose and her dose was cut down to 25 mg 3 times daily. Patient did well on this dose for 24 hours and did not have any episodes of bradycardia or rapid ventricular rates and was deemed ready for discharge. Patient was discharged home on 03/24/2021. Patient was started on Eliquis for anticoagulation. DISCHARGE MEDICATIONS: Please see below. ALLERGIES: Please see below. PHYSICAL EXAMINATION ON DISCHARGE: VITAL SIGNS: Please see below. General: Alert and oriented female patient was sitting the bedside chair when I walked in. Patient not appear to be in any acute distress. HEENT: Normocephalic, atraumatic, moist mucous membranes. Neck: No lymphadenopathy or thyromegaly Cardiac: Regular rate and rhythm, no murmurs, normal S1, normal S2 Pulm: Clear to auscultation bilaterally. No wheezes, rhonchi, rales Abd: Nondistended, nontender to palpation, normal bowel sounds Ext: No edema bilateral lower extremities patient had her left leg wrapped aware that she has a wound that did not show a soiled dressing. LABORATORY DATA: Please see below. IMAGING: Portable chest x-ray performed on 03/20/2021 was reported to show no active disease PROGNOSIS: Good ACTIVITY: As tolerated. DIET: Regular DISCHARGE PLAN: Discharge home DISPOSITION: Home, Self-Care. DISCHARGE INSTRUCTIONS: 1. Follow-up with your primary care provider within 3 to 5 days discharge. 2. Continue take metoprolol 25 mg 3 times a day with a hold parameter of a sy stolic blood pressure less than 110 and a heart rate less than 60 3. Continue to follow-up with wound care as scheduled and change the dressing based on their recommendations ITEMS TO FOLLOWUP ON ON OUTPATIENT: 1. Patient's heart rate and her wound. DISCHARGE CONDITION: Stable. TIME SPENT ON DISCHARGE: 35 minutes. Vital Signs/I&Os Vital Signs Date Time Temp Pulse Resp B/P (MAP) Pulse Ox O2 Delivery O2 Flow Rate FiO2 03/24/21 08:00 97.9 73 17 113/65 (81) 98 Room Air 03/21/21 00:00 I&O- Last 24 Hours up to 6 AM 03/24/21 06:00 Intake Total 1050 ml Output Total 400 ml Balance 650 ml Laboratory Data Labs 24H Laboratory Tests 2 03/23/21 21:08: Bedside Glucose (Misc Panel) 219H 03/24/21 05:15: Nucleated Red Blood Cells % (auto) 0.0, Anion Gap 5L, Glomerular Filtration Rate > 60.0, Calcium Level 8.2L, Magnesium Level 1.9 CBC/BMP Laboratory Tests 03/24/21 05:15 FSBS Laboratory Tests Test 03/23/21 21:08 Range/Units Bedside Glucose (Misc Panel) 219 83-110 MG/DL Microbiology Microbiology 03/20/21 Blood Culture - Preliminary, Resulted No Growth after 72 hours. All specime... 03/20/21 Blood Culture - Preliminary, Resulted No Growth after 72 hours. All specime... Discharge Medications Scheduled Acetaminophen (Acetaminophen) 325 Mg Tab, 650 MG PO BID, (Reported) Apixaban (Eliquis) 5 Mg Tablet, 5 MG PO BID Biotin (Biotin) 2,500 Mcg Capsule, 2,500 MCG PO DAILY, (Reported) Buspirone HCl (Buspirone HCl) 5 Mg Tablet, 5 MG PO BID, (Reported) Cholecalciferol (Vitamin D3) (Vitamin D3) 125 Mcg Capsule, 125 MCG PO DAILY, (Reported) Docusate Sodium (Stool Softener) 100 Mg Capsule, 100 MG PO DAILY, (Reported) Ferrous Sulfate (Ferrous Sulfate) 325 Mg Tablet.dr, 325 MG PO DAILY, (Reported) Magnesium Oxide (Magnesium) 400 Mg Capsule, 400 MG PO DAILY, (Reported) Metformin HCl (Metformin HCl) 500 Mg Tab, 500 MG PO BID, (Reported) Metoprolol Tartrate (Metoprolol Tartrate) 25 Mg Tablet, 25 MG PO Q8H Multivitamins (Thera M Plus Tablet) 1 Each Tablet, 1 TAB PO DAILY, (Reported) Omeprazole (Omeprazole) 40 Mg Cap, 40 MG PO DAILY, (Reported) Potassium Chloride (Potassium Chloride) 8 Meq Tablet.er, 8 MEQ PO DAILY, (Reported) Sucralfate (Carafate) 1 Gm Tab, 1 GM PO AC, (Reported) Vitamin B Complex (Vitamin B Complex) 1 Each Tablet, 1 TAB PO DAILY, (Reported) Allergies Coded Allergies: Penicillins (Verified Allergy, Unknown, RASH, 03/20/21) bacitracin (Verified Allergy, Unknown, contact allergic dermatitis, 03/20/21) ciprofloxacin (Verified Allergy, Unknown, rash, 03/20/21) clindamycin (Verified Allergy, Unknown, rash, 03/20/21) neomycin (Verified Allergy, Unknown, contact allergic dermatitis, 03/20/21) polymyxin B (Verified Allergy, Unknown, contact allergic dermatitis, 03/20/21) UMAIR POTTER DO Mar 24, 2021 17:55
== END 2021-03-24 11:15 | disposition home or self-care (01) | DRG 315 ==
LOC: M IRPRO 09:05 → M ICU 16:03 → M PCU 17:02
PROVIDERS: ADMIT Internal Medicine; ATTEND Family Medicine
PROC: B41GZZZ Fluoroscopy of Left Lower Extremity Arteries (ICD-10-PCS; principal; 2021-03-20 10:30)
DX: I97.89 Other postprocedural complications and disorders of the circulatory system, not elsewhere classified (principal); L97.929 Non-pressure chronic ulcer of unspecified part of left lower leg with unspecified severity; Z68.1 Body mass index [BMI] 19.9 or less, adult; I48.91 Unspecified atrial fibrillation; E11.622 Type 2 diabetes mellitus with other skin ulcer; F41.9 Anxiety disorder, unspecified; F32.9 Major depressive disorder, single episode, unspecified; K21.9 Gastro-esophageal reflux disease without esophagitis; Z79.899 Other long term (current) drug therapy; Z88.0 Allergy status to penicillin; Z88.8 Allergy status to other drugs, medicaments and biological substances

== ENCOUNTER → 2021-04-04 | Outpatient (POV) | payer MEDICARE ==
[~2021-04-04] VITALS: Ht 170.2 cm; Wt 47.7 kg
[~2021-04-04] MED LIST changes: +BIOT2500 PO; -CLIN150C15 PO; +CLIN150C17 PO; +D3 M1CAP2 PO; +ELIQ5TAB PO; +FERR325T3 PO; +METO1TAB87 PO; +MM S100C PO; +POTA1TAB21 PO; +VITATAB73 PO; +VITMTA PO
[2021-04-04 14:14] VITALS: BP 131/60
--- NOTE | 2021-04-05 12:55 | IRPN ---
[facility] IR Progress Note IR Progress Note DATE: Apr 04, 2021 FOLLOW-UP: Patient is now status post left lower extremity angiography. This demonstrated patent inflow and outflow. 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 ON EXAMINATION: Right groin access site has healed up well. No bruising, lump or mass. No hematoma. IMPRESSION: Doing well status post left lower extremity angiography. 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 She is also status post left lower extremity angiography, which demonstrates no significant arterial stenosis or occlusion. Small posterior tibial artery with microvascular disease, compensated by anterior tibial and peroneal artery. Thank you for this referral. Cc Ene Ornelas Allergies Coded Allergies: Penicillins (Verified Allergy, Unknown, RASH, 03/20/21) bacitracin (Verified Allergy, Unknown, contact allergic dermatitis, 03/20/21) ciprofloxacin (Verified Allergy, Unknown, rash, 03/20/21) clindamycin (Verified Allergy, Unknown, rash, 03/20/21) neomycin (Verified Allergy, Unknown, contact allergic dermatitis, 03/20/21) polymyxin B (Verified Allergy, Unknown, contact allergic dermatitis, 03/20/21) VS,Fishbone, I+O VS, Fishbone, I+O Vital Signs Date Time Temp Pulse Resp B/P (MAP) Pulse Ox O2 Delivery O2 Flow Rate FiO2 04/04/21 14:14 97.5 75 20 131/60 (83) 98 Room Air LANNY SOTO MD Apr 05, 2021 12:55
== END ==
LOC: M IRPOV 14:02
PROVIDERS: ATTEND Radiology Diagnostic Radiology
DX: Z48.812 Encounter for surgical aftercare following surgery on the circulatory system (principal); Z88.0 Allergy status to penicillin; Z88.1 Allergy status to other antibiotic agents

== ENCOUNTER → 2021-04-07 | Outpatient (REF) | payer MEDICARE, MEDICAID ==
[2021-04-07 17:17] LABS: EOS # 0.3 10^3/uL (0.0-0.5); EOS % 10.2 % (0.0-3.0); LYMPH # 1.3 10^3/uL (1.5-5.0); LYMPH % 40.3 % (24.0-44.0); MEAN CORPUSCULAR HGB CONC 32.1 g/dl (32.0-36.5); MONO # 0.4 10^3/uL (0.0-0.8); MONO % 11.1 % (2.0-8.0); NEUTROPHILS # 1.2 10^3/uL (1.5-8.5); NEUTROPHILS % 37.4 % (36.0-66.0); PLATELET COUNT, AUTOMATED 120 10^3/uL (150-450); RED BLOOD COUNT 3.22 10^6/uL (4.00-5.40); WHITE BLOOD COUNT 3.2 10^3/uL (4.0-10.0)
== END ==
LOC: M LAB REF 16:57
PROVIDERS: ATTEND Physician Assistant
DX: I87.312 Chronic venous hypertension (idiopathic) with ulcer of left lower extremity (principal)

== ENCOUNTER → 2021-05-15 | Outpatient (CLI) | payer MEDICARE, MEDICAID ==
--- NOTE | 2021-05-15 11:44 | REP ---
INDICATION: PLEURODYNIA. COMPARISON: None TECHNIQUE: Four views of the left ribs with frontal view of the chest FINDINGS: The frontal view the chest shows no significant change compared to the portable examination of 03/20/2021. There is no evidence of a gross left rib fracture, however, examination is limited due to over penetration of the radiographic beam. IMPRESSION: Negative but somewhat limited left rib series as described above. Consider CT. <Electronically signed by Remberto Gupta > 05/15/21 [id number]
== END ==
LOC: M RAD 11:09
PROVIDERS: ATTEND Nurse Practitioner Family
DX: R07.81 Pleurodynia (principal)

== ENCOUNTER → 2021-06-23 | Outpatient (REF) | payer MEDICARE, MEDICAID | LOC: M LAB REF 17:11 | PROVIDERS: ATTEND Surgery | DX: I87.312 Chronic venous hypertension (idiopathic) with ulcer of left lower extremity (principal); Z79.899 Other long term (current) drug therapy ==

== ENCOUNTER 2021-08-07 21:37 | Inpatient (IN) | payer MEDICARE, MEDICAID ==
[~2021-08-07] VITALS: Ht 172.7 cm; Wt 50.1 kg
--- OUTSIDE RECORDS SUMMARY | 2021-08-07 21:42 | CCD ---
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 Active confirmed 498480782 Problem Tinea pedis 110.4 Active confirmed 0591808 improving Problem Chronic venous hypertension (idiopathic) with ulcer of left lower extremity I87.312 Active confirmed 193997819 Problem Idiopathic chronic venous hy pertension of left lower extremity with ulcer I87.312 Active confirmed 605617300 Problem Deep tissue injury T14.8XXA Active confirmed 566342994 Problem Dermatitis associated with moisture L30.8 Acti ve confirmed 895927833 Problem Stage III pressure ulcer of left heel L89.623 Ac tive confirmed 069168504 Problem 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 Active confirmed 284001966 Problem Stage II pressure ulcer of sacral region L89.152 Active confirmed 495375697 Problem Chronic venous hypertension (idiopathic) with ulcer of right lower extremity I87.311 Active confirmed Problem 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 Active confirmed 566033321 Problem Stage III pressure ulcer of right heel L89.613 A ctive confirmed 947358121 Problem Stage II pressure ulcer of right buttock L89.312 Active confirmed 191945341 Problem Stage II pressure ulcer of left buttock L89.322 Active confirmed 724338215 Problem Non-pressure chronic ulcer o f other part of right lower leg with unspecified severity L97.819 Active confirmed ALLERGIES Allergen (clinical drug ingredient) Drug/Non Drug Allergy do cumented on EMR Reaction Allergy Type Onset Date Status Sulfasalazine Sulfa Antibiotics Unknown Drug Allergy Ac tive ciprofloxacin Cipro([facility] Code:[address]-84) Unknown Drug Allergy Active Penicillin (For Allergies Use Only) Unknown Drug Allerg y Active ENCOUNTERS from 1945 to 2021-08-04 Encounter Location Date Provider Diagnosis [facility] Wound Care [address] [phone] [place] [address] Aug, Tyson Burgos IMMUNIZATIONS Vaccine Route Administration Date Status Influenza 18 yrs & older Flublok Unknown Jun 09, 2020 Refused SOCIAL HISTORY Tobacco Use: Social History Observation Description Date Details (start date - stop date) Never Smoker Sex Assigned At : Social History Observation Description Sex Assigned At Unknown Education: Question Answer Notes Level of Education: High School Language: Question Answer Notes Languages spoken: Yi Presybeterian: Question Answer Notes Presybeterian 21 Congregational No congregational beliefs that would impact health care. Alcohol Screening: Question Answer Notes Did you have a drink containing alcohol in the past year? No Points 0 Interpretation Negative Tobacco Use: Question Answer Notes Are you a: never smoker "I might have a ciga rette once in a while with a friend but Im not really a smoker" REASON FOR REFERRAL No Information VITAL SIGNS No information MEDICATIONS Medication SIG (Take, Route, Frequency, Duration) Notes Start Da te End Date Status Sucralfate 1 GM 1 tablet on an empty stomach Orally four times a day and at bedtime Active Milk of Magnesia 2400 MG/10ML 5 ml Orally once daily 2017 Not-Taking Glucerna - 180 cc Orally twice a day Aug, Not-Taking Benadryl Allergy 25 MG 1 tablet as needed Orally every 8 hrs Active Multiple Vitamin - 1 tablet Orally Once a day Aug, Not-Taking Eucerin - Externally twice a day Aug, Not-Taking Bisacodyl 10 MG 1 suppository as needed Rectal Once a day Aug, Not-Taking Metoprolol Tartrate 25 MG 1 tablet with food Orally Twice a day for 30 day(s) Active Carafate 1 GM 1 tablet on an empty stomach Orally three times daily Aug, Not-Taking Disposable Enema 19-7 GM/118ML Rectal once daily Aug, Not-Taking Omeprazole 40mg 40gm 1 cap oral daily Not-Taking Acetominophen 325 prn 325 mg as directed orally as directed Not-Taking Iron 325 (65 Fe) MG 1 tablet Orally Once a day for 30 day(s) Active Potassium Chloride 10 MEQ 1 tablet with food Orally once daily Aug, Not-Taking diphenhydrAMINE HCl 25 mg 1 capsule as needed Orally every 6 hrs Aug, Not-Taking Eliquis 5 MG as directed Orally Acti ve Potassium 1 tab Oral 10 meq, 2 tabs daily Not- Taking Omeprazole 40 MG 1 capsule Orally Once a day Aug, Not-Taking Tylenol 325 MG 2 tablets Orally every 4 hrs Aug, Not-Taking Omeprazole 40 MG TAKE ONE CAPSULE BY MOUTH ONCE DAILY Oral for 30 Active Potassium Chloride ER 10 MEQ TAKE ONE TABLET BY MOUTH ONCE DAILY Oral for 30 Active Ketoconazole 2 % 1 application to affected ar ea Externally twice a day to web spaces Not-Taking Sertraline HCl 25 MG 1 tablet Orally Once a day Aug, Not-Taking Diphenhydramine 1 tab-25MG Oral PRN Q6H Not-Taking busPIRone HCl 5 MG 1 tablet Orally Twice a day Active DOK 100 MG TAKE ONE CAPSULE BY MOUTH ONCE DAILY Oral for 90 Active oxyCODONE-Acetaminophen 5-325 MG 1 tablet as needed Orally twice a day Aug, Not-Taking Isaac - 1 unit Orally twice daily 7-7-1.5g Aug, Not-Taking Magnesium 200 MG 2 tablets with a meal Orally Once a day 0 Aug, Not-Taking Fluocinonide 0.05 % Externally Not- Taking Ibuprofen 800 MG 1 tablet with food or milk as needed Ora lly Three times a day Active metFORMIN HCl 500 MG 1 tablet with meals Orally Twice a day 500mg Aug, Active Cefadroxil 500 mg 1 capsules Orally Twice a day Not-Taking Aquaphor _ as directed Externally twice daily to dry skin f or 1 month Oct, Not-Taking Clindamycin HCl 300 MG 1 capsule Orally every 8 hrs Not-Taking Bactrim 400-80 MG 2 tablets Orally every 12 hours for 10 days Mar, Not-Taking Fluocinonide 0.05 % 1 application to lower leg E xternally once a day for a week, then three times weekly for 1 month Jan, Not-Taking PROCEDURES No Information RESULTS No Results REASON FOR VISIT Cx WCC Apt. MEDICAL (GENERAL) HISTORY Type Description Date Medical History NIDDM Medical History hiatal hernia Medical History GI reflux Medical History Venous Disease Medical History Skin CA Medical History Broken Hip 08/2018 Medical History thrombocytopenia Surgical History cholecystectomy 1987 Surgical History Right Hip Surgery Pin Placed 08/2018 Surgical History LLE ANGIOPLASTY 03/2021 Hospitalization History cellulitis x 2 2013 Hospitalization History acid reflux 2010 Hospitalization History fall - head injury Hospitalization History Broken Right Hip 08/2018 Hospitalization History ANGIOPLASTY & HTN 03/2021 Goals Section No Information Health Concerns No Information MEDICAL EQUIPMENT No Information MENTAL STATUS No Information FUNCTIONAL STATUS No Information ASSESSMENTS No Information PLAN OF TREATMENT Next Appt Details Provider Name:Tyson Burgos, 01:45:00 PM, [address], , [place], [address], Insurance Providers Payer Name Payer Address Payer Phone Insured Name Patient Relati onship to Insured Coverage Start Date Coverage End Date MEDICARE COMPLETE [facility] [address] [address] [facility] [id number] [place] MEDICAID [employer] [address] [facility] [address] [place] self
--- OUTSIDE RECORDS SUMMARY | 2021-08-07 21:42 | CCD ---
Author Author [facility] Organization [facility] Address Unknown Phone Unavailable Care Team Providers Care Marketing Development Manager Name Role Phone Tyson Burgos Unavailable PROBLEMS Type Condition ICD9-CM Code [id number] Code Onset Dates Condition S tatus W/U Status Risk SNOMED Code Notes Problem Contact dermatitis, allergic 692.9 Active confirme d 187190215 from history suspect strongly neopsorin contact allergic dermatitis Problem Contact eczematous dermatitis 692.9 Active confirm ed 609857025 subacute eczematous dermatitis Problem 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 Active confirmed 446055442 Problem Tinea pedis 110.4 Active confirmed 9191407 improving Problem Chronic venous hypertension (idiopathic) with ulcer of left lower extremity I87.312 Active confirmed 685493979 Problem Idiopathic chronic venous hy pertension of left lower extremity with ulcer I87.312 Active confirmed 613668492 Problem Deep tissue injury T14.8XXA Active confirmed 449083619 Problem Dermatitis associated with moisture L30.8 Acti ve confirmed 820638697 Problem Stage III pressure ulcer of left heel L89.623 Ac tive confirmed 938903479 Problem 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 Active confirmed 711978149 Problem Stage II pressure ulcer of sacral region L89.152 Active confirmed 530973213 Problem Chronic venous hypertension (idiopathic) with ulcer of right lower extremity I87.311 Active confirmed Problem 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 Active confirmed 401041693 Problem Stage III pressure ulcer of right heel L89.613 A ctive confirmed 939247353 Problem Stage II pressure ulcer of right buttock L89.312 Active confirmed 616716466 Problem Stage II pressure ulcer of left buttock L89.322 Active confirmed 753600897 Problem Non-pressure chronic ulcer o f other part of right lower leg with unspecified severity L97.819 Active confirmed ALLERGIES Allergen (clinical drug ingredient) Drug/Non Drug Allergy do cumented on EMR Reaction Allergy Type Onset Date Status Sulfasalazine Sulfa Antibiotics Unknown Drug Allergy Ac tive ciprofloxacin Cipro([facility] Code:[address]-10) Unknown Drug Allergy Active Penicillin (For Allergies Use Only) Unknown Drug Allerg y Active ENCOUNTERS from 1945 to 2021-08-03 Encounter Location Date Provider Diagnosis [facility] Wound Care [address] [phone] [place] [address] Aug, Tyson Burgos IMMUNIZATIONS Vaccine Route Administration [...] School Language: Question Answer Notes Languages spoken: Macedonian Orthodox: Question Answer Notes Orthodox 21 Caodaism No alevism beliefs that would impact health care. Alcohol [...] Information RESULTS No Results REASON FOR VISIT FYI MEDICAL (GENERAL) HISTORY Type Description Date Medical [...] Appt Details Provider Name:Tyson Burgos, 01:45:00 PM, [address], , [place], [address], Provider Name:Tyson Burgos, 01:45:00 PM, [address], , [place], [address], Insurance Providers Payer Name Payer Address Payer Phone Insured Name Patient Relati onship to Insured Coverage Start Date Coverage End Date MEDICAID [employer] [address] [facility] [id number] [place] MEDICARE COMPLETE UNITED HEALTHCARE [address] [address] [facility] [id number] SAM[place] SINGH self
--- OUTSIDE RECORDS SUMMARY | 2021-08-07 21:42 | CCD ---
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 Active confirmed 846982757 Problem Tinea pedis 110.4 Active confirmed 5096265 improving Problem Chronic venous hypertension (idiopathic) with ulcer of left lower extremity I87.312 Active confirmed 823375832 Problem Idiopathic chronic venous hy pertension of left lower extremity with ulcer I87.312 Active confirmed 788824190 Problem Deep tissue injury T14.8XXA Active confirmed 490199655 Problem Dermatitis associated with moisture L30.8 Acti ve confirmed 015185072 Problem Stage III pressure ulcer of left heel L89.623 Ac tive confirmed 552379912 Problem 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 Active confirmed 609128032 Problem Stage II pressure ulcer of sacral region L89.152 Active confirmed 367006610 Problem Chronic venous hypertension (idiopathic) with ulcer of right lower extremity I87.311 Active confirmed Problem 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 Active confirmed 494471742 Problem Stage III pressure ulcer of right heel L89.613 A ctive confirmed 187369889 Problem Stage II pressure ulcer of right buttock L89.312 Active confirmed 190922731 Problem Stage II pressure ulcer of left buttock L89.322 Active confirmed 673846877 Problem Non-pressure chronic ulcer o f other part of right lower leg with unspecified severity L97.819 Active confirmed ALLERGIES Allergen (clinical drug ingredient) Drug/Non Drug Allergy do cumented on EMR Reaction Allergy Type Onset Date Status Sulfasalazine Sulfa Antibiotics Unknown Drug Allergy Ac tive ciprofloxacin Cipro([facility] Code:[address]-79) Unknown Drug Allergy Active Penicillin (For Allergies Use Only) Unknown Drug Allerg y Active ENCOUNTERS from 1945 to 2021-07-31 Encounter Location Date Provider Diagnosis [facility] Wound Care [address] [phone] [place] [address] Jul, Tyson Burgos Chronic venous hypertension (idiopathic) with ulcer of left lower extremity I87.312 and Non-pressure chronic ulcer of other part of left lower leg with fat layer exposed L97.822 IMMUNIZATIONS Vaccine Route Administration Date Status Influenza 18 yrs & older Flublok Unknown Jun 09, 2020 Refused SOCIAL HISTORY Tobacco Use: Social History Observation Description Date Details (start date - stop date) Never Smoker Sex Assigned At : Social History Observation Description Sex Assigned At Unknown Education: Question Answer Notes Level of Education: High School Language: Question Answer Notes Languages spoken: Sami Anabaptism: Question Answer Notes Anabaptism 21 Religious No episcopal beliefs that would impact health care. Alcohol Screening: Question Answer Notes Did you have a drink containing alcohol in the past year? No Points 0 Interpretation Negative Tobacco Use: Question Answer Notes Are you a: never smoker "I might have a ciga rette once in a while with a friend but Im not really a smoker" REASON FOR REFERRAL No Information VITAL SIGNS Weight 111 lbs Jul, Weight-kg 50.35 kg Jul, Height 68 in Jul, BMI 16.88 kg/m2 Jul, Heart Rate 87 /min Jul, Respiratory Rate 18 /min Jul, Temperature 97.1 degrees Fahrenheit Jul, Oximetry 100 Jul, Blood pressure systolic 136 mm Hg Jul, Blood pressure diastolic 60 mm Hg Jul, MEDICATIONS Medication SIG (Take, Route, Frequency, Duration) [...] 1 tablet Orally Once a day Aug, 18 Not-Taking Diphenhydramine 1 tab-25MG Oral PRN Q6H Not-Taking busPIRone HCl 5 MG 1 tablet Orally Twice a day Active DOK 100 MG TAKE ONE CAPSULE BY MOUTH ONCE DAILY Oral for 90 Active oxyCODONE-Acetaminophen 5-325 MG 1 tablet as needed Orally twice a day Aug, Not-Taking Isaac - 1 unit Orally twice daily 7-7-.5g Aug, Not-Taking Magnesium 200 MG 2 tablets [...] weekly for 1 month Jan, Not-Taking PROCEDURES from 1945 to 2021-07-31 Procedure Date Ordered Result Body Site Medication: 4% Lidocaine topical cream (Anecream) 30 gm N/A RESULTS No Results REASON FOR VISIT Left lower leg wound MEDICAL (GENERAL) HISTORY Type Description Date Medical [...] No Information FUNCTIONAL STATUS No Information ASSESSMENTS Encounter Date Diagnosis Assessment Notes Treatment Notes Treatm ent Clinical Notes Jul, Chronic venous hypertension (idiopathic) with ulcer of left lower extremity (ICD-10 - I87.312) Jul, 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 (ICD-10 - L97.822) PLAN OF TREATMENT Next Appt Details 1 Week Reason: Provider Name:Tyson Burgos, 01:45:00 PM, [address], , [place], [address], Insurance Providers Payer Name Payer Address Payer Phone Insured Name Patient Relati onship to Insured Coverage Start Date Coverage End Date MEDICAID [facility] [address] [facility] [id number] [place] MEDICARE COMPLETE UNITED HEALTHCARE [address] [address] [facility] [id number] SAM[place] SINGH self
--- OUTSIDE RECORDS SUMMARY | 2021-08-07 21:42 | CCD ---
Author Author [facility] Organization [facility] Address Unknown Phone Unavailable Care Team Providers Care Highway Engineering Technician Name Role Phone Een Maya Unavailable PROBLEMS Type Condition ICD9-CM Code [id number] Code Onset Dates Condition S tatus W/U Status Risk SNOMED Code Notes Problem Contact dermatitis, allergic 692.9 Active confirme d 418873550 from history suspect strongly neopsorin contact allergic dermatitis Problem Contact eczematous dermatitis 692.9 Active confirm ed 137096163 subacute eczematous dermatitis Problem 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 Active confirmed 731325293 Problem Tinea pedis 110.4 Active confirmed 2055987 improving Problem Chronic venous hypertension (idiopathic) with ulcer of left lower extremity I87.312 Active confirmed 306804460 Problem Idiopathic chronic venous hy pertension of left lower extremity with ulcer I87.312 Active confirmed 903584947 Problem Deep tissue injury T14.8XXA Active confirmed 115224708 Problem Dermatitis associated with moisture L30.8 Acti ve confirmed 365387518 Problem Stage III pressure ulcer of left heel L89.623 Ac tive confirmed 546633024 Problem 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 Active confirmed 628196571 Problem Stage II pressure ulcer of sacral region L89.152 Active confirmed 603572917 Problem Chronic venous hypertension (idiopathic) with ulcer of right lower extremity I87.311 Active confirmed Problem 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 Active confirmed 346520886 Problem Stage III pressure ulcer of right heel L89.613 A ctive confirmed 444366743 Problem Stage II pressure ulcer of right buttock L89.312 Active confirmed 151054918 Problem Stage II pressure ulcer of left buttock L89.322 Active confirmed 853944721 Problem Non-pressure chronic ulcer o f other part of right lower leg with unspecified severity L97.819 Active confirmed ALLERGIES Allergen (clinical drug ingredient) Drug/Non Drug Allergy do cumented on EMR Reaction Allergy Type Onset Date Status Sulfasalazine Sulfa Antibiotics Unknown Drug Allergy Ac tive ciprofloxacin Cipro([facility] Code:[address]-48) Unknown Drug Allergy Active Penicillin (For Allergies Use Only) Unknown Drug Allerg y Active ENCOUNTERS from 1945 to 2021-07-21 Encounter Location Date Provider Diagnosis [facility] Wound Care [address] [phone] [place] [address] Jul, Ene Maya Chronic venous hypertension (idiopathic) with ulcer of [...] School Language: Question Answer Notes Languages spoken: Slovak Restoration: Question Answer Notes Restoration 21 [employer] No judaism beliefs that would impact health care. Alcohol [...] Information VITAL SIGNS Weight 111 lbs Jul, Height 68 in Jul, BMI 16.88 kg/m2 Jul, Heart Rate 82 /min Jul, Respiratory Rate 18 /min Jul, Temperature 96.3 degrees Fahrenheit Jul, Oximetry 98 Jul, Blood pressure systolic 123 mm Hg Jul, Blood pressure diastolic 58 mm Hg Jul, MEDICATIONS Medication SIG (Take, Route, Frequency, Duration) Notes Start Da te End Date Status Potassium 1 tab Oral 10 meq, 2 tabs daily Not- Taking Sucralfate 1 GM 1 tablet on an empty stomach Orally four times a day and at bedtime Active diphenhydrAMINE HCl 25 mg 1 capsule as needed Orally every 6 hrs Aug, Not-Taking Acetominophen 325 prn 325 mg as directed orally as directed Not-Taking Ketoconazole 2 % 1 application to affected ar ea Externally twice a day to web spaces Not-Taking Bisacodyl 10 MG 1 suppository as needed Rectal Once a day Aug, Not-Taking Potassium Chloride 10 MEQ 1 tablet with food Orally once daily Aug, Not-Taking metFORMIN HCl 500 MG 1 tablet with meals Orally Twice a day 500mg Aug, Active DOK 100 MG TAKE ONE CAPSULE BY MOUTH ONCE DAILY Oral for 90 Active Carafate 1 GM 1 tablet on an empty stomach Orally three times daily Aug, Not-Taking busPIRone HCl 5 MG 1 tablet Orally Twice a day Active oxyCODONE-Acetaminophen 5-325 MG 1 tablet as needed Orally twice a day Aug, Not-Taking Omeprazole 40 MG TAKE ONE CAPSULE BY MOUTH ONCE DAILY Oral for 30 Active Ibuprofen 800 MG 1 tablet with food or milk as needed Ora lly Three times a day Active Tylenol 325 MG 2 tablets Orally every 4 hrs Aug, Not-Taking Potassium Chloride ER 10 MEQ TAKE ONE TABLET BY MOUTH ONCE DAILY Oral for 30 Active Sertraline HCl 25 MG 1 tablet Orally Once a day Aug, Not-Taking Milk of Magnesia 2400 MG/10ML 5 ml Orally once daily 2017 Not-Taking Benadryl Allergy 25 MG 1 tablet as needed Orally every 8 hrs Active Eliquis 5 MG as directed Orally Acti ve Bactrim 400-80 MG 2 tablets Orally every 12 hours for 10 days Mar, Not-Taking Fluocinonide 0.05 % Externally Not- Taking Iron 325 (65 Fe) MG 1 tablet Orally Once a day for 30 day(s) Active Cefadroxil 500 mg 1 capsules Orally Twice a day Not-Taking Fluocinonide 0.05 % 1 application to lower leg E xternally once a day for a week, then three times weekly for 1 month Jan, Not-Taking Aquaphor _ as directed Externally twice daily to dry skin f or 1 month Oct, Not-Taking Omeprazole 40 MG 1 capsule Orally Once a day Aug, Not-Taking Magnesium 200 MG 2 tablets with a meal Orally Once a day 0 Aug, Not-Taking Disposable Enema 19-7 GM/118ML Rectal once daily Aug, Not-Taking Glucerna - 180 cc Orally twice a day Aug, Not-Taking Clindamycin HCl 300 MG 1 capsule Orally every 8 hrs Not-Taking Metoprolol Tartrate 25 MG 1 tablet with food Orally Twice a day for 30 day(s) Active Eucerin - Externally twice a day Aug, Not-Taking Isaac - 1 unit Orally twice daily 7-7-1.5g Aug, Not-Taking Multiple Vitamin - 1 tablet Orally Once a day Aug, Not-Taking Diphenhydramine 1 tab-25MG Oral PRN Q6H Not-Taking Omeprazole 40mg 40gm 1 cap oral daily Not-Taking PROCEDURES No Information RESULTS No Results REASON FOR VISIT Left Lower Leg MEDICAL (GENERAL) HISTORY Type Description Date Medical History NIDDM Medical History hiatal hernia Medical History GI reflux Medical History Venous Disease Medical History Skin CA Medical History Broken Hip 08/2018 Medical History thrombocytopenia Surgical History cholecystectomy 1988 Surgical History Right Hip Surgery Pin Placed [...] of left lower extremity (ICD-10 - I87.312) Dressing changes 3x a week. The dressing should follow those documented in the procedure note Dressing changes 3x a week. The dressing should follow those documented in the procedure note hydrogel lot: [id number] exp: 07/25Jul, 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 (ICD-10 - L97.822) PLAN OF TREATMENT Treatment Notes Assessment Notes Clinical Notes Chronic venous hypertension (idiopathic) with ulcer of left lower extremity Dressing changes 3x a week. The dressing should follow those documented in the procedure note Dressing changes 3x a week. The dressing should follow those documented in the procedure note hydrogel lot: [id number] exp: 07/25 Pending Tests Test Name Order Date Medication: 4% Lidocaine topical cream (Anecream) 30 g m 2021-07-20 Next Appt Details 1 Week Reason: Provider Name:Tyson Burgos, 01:45:00 PM, [address], , [place], [address], Provider Name:Tyson Burgos, 01:45:00 PM, [address], , [place], [address], Insurance Providers Payer Name Payer Address Payer Phone Insured Name Patient Relati onship to Insured Coverage Start Date Coverage End Date MEDICARE COMPLETE UNITED HEALTHCARE [address] [address] [facility] [phone] [place] self MEDICAID [facility] [address] [facility] [address] [place] self
--- OUTSIDE RECORDS SUMMARY | 2021-08-07 21:43 | CCD ---
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 Active confirmed 448268753 Problem Tinea pedis 110.4 Active confirmed 8689239 improving Problem Chronic venous hypertension (idiopathic) with ulcer of left lower extremity I87.312 Active confirmed 749265451 Problem Idiopathic chronic venous hy pertension of left lower extremity with ulcer I87.312 Active confirmed 453968033 Problem Deep tissue injury T14.8XXA Active confirmed 807142924 Problem Dermatitis associated with moisture L30.8 Acti ve confirmed 169389742 Problem Stage III pressure ulcer of left heel L89.623 Ac tive confirmed 061418988 Problem 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 Active confirmed 426820499 Problem Stage II pressure ulcer of sacral region L89.152 Active confirmed 576418536 Problem Chronic venous hypertension (idiopathic) with ulcer of right lower extremity I87.311 Active confirmed Problem 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 Active confirmed 087858685 Problem Stage III pressure ulcer of right heel L89.613 A ctive confirmed 257610048 Problem Stage II pressure ulcer of right buttock L89.312 Active confirmed 590398746 Problem Stage II pressure ulcer of left buttock L89.322 Active confirmed 283973144 Problem Non-pressure chronic ulcer o f other part of right lower leg with unspecified severity L97.819 Active confirmed ALLERGIES Allergen (clinical drug ingredient) Drug/Non Drug Allergy do cumented on EMR Reaction Allergy Type Onset Date Status Sulfa (for allergy use only) Unknown Drug Allergy Active ciprofloxacin Cipro([facility] Code:[address]-47) Unknown Drug Allergy Active Penicillin (For Allergies Use Only) Unknown Drug Allerg y Active ENCOUNTERS from 1945 to 2021-05-23 Encounter Location Date Provider Diagnosis [facility] Wound Care [address] [facility] [phone] [place] [address] May, Ene Maya Chronic venous hypertension (idiopathic) with [...] School Language: Question Answer Notes Languages spoken: Frisian Bahai: Question Answer Notes Bahai 21 Voodoo No hinduism beliefs that would impact health care. Alcohol [...] FOR REFERRAL No Information VITAL SIGNS Weight 114 lbs May, Weight-kg 51.71 kg May, Height 68 in May, BMI 17.33 kg/m2 May, Heart Rate 75 /min May, Respiratory Rate 18 /min May, Temperature 98.4 degrees Fahrenheit May, Oximetry 100 May, Blood pressure systolic 153 mm Hg May, Blood pressure diastolic 67 mm Hg May, MEDICATIONS Medication SIG (Take, Route, Frequency, Duration) Notes Start Da te End Date Status busPIRone HCl 5 MG 1 tablet Orally Twice a day Active Eucerin - Externally twice a day Aug, Not-Taking Iron 325 (65 Fe) MG 1 tablet Orally Once a day for 30 day(s) Active Sucralfate 1 GM 1 tablet on an empty stomach Orally four times a day and at bedtime Active Ketoconazole 2 % 1 application to affected ar ea Externally twice a day to web spaces Not-Taking Aquaphor _ as directed Externally twice daily to dry skin f or 1 month Oct, Not-Taking Potassium Chloride ER 10 MEQ TAKE ONE TABLET BY MOUTH ONCE DAILY Oral for 30 Active Glucerna - 180 cc Orally twice a day Aug, Not-Taking DOK 100 MG TAKE ONE CAPSULE BY MOUTH ONCE DAILY Oral for 90 Active metFORMIN HCl 500 MG 1 tablet with meals Orally Twice a day 500mg Aug, Active Fluocinonide 0.05 % Externally Not- Taking Clindamycin HCl 300 MG 1 capsule Orally every 8 hrs Not-Taking Metoprolol Tartrate 25 MG 1 tablet with food Orally Twice a day for 30 day(s) Active Potassium Chloride 10 MEQ 1 tablet with food Orally once daily Aug, Not-Taking Omeprazole 40 MG TAKE ONE CAPSULE BY MOUTH ONCE DAILY Oral for 30 Active Fluocinonide 0.05 % 1 application to lower leg E xternally once a day for a week, then three times weekly for 1 month Jan, Not-Taking Acetominophen 325 prn 325 mg as directed orally as directed Not-Taking Bactrim 400-80 MG 2 tablets Orally every 12 hours for 10 days Mar, Not-Taking Tylenol 325 MG 2 tablets Orally every 4 hrs Aug, Not-Taking Diphenhydramine 1 tab-25MG Oral PRN Q6H Not-Taking Sertraline HCl 25 MG 1 tablet Orally Once a day Aug, Not-Taking Disposable Enema 19-7 GM/118ML Rectal once daily Aug, Not-Taking Carafate 1 GM 1 tablet on an empty stomach Orally three times daily Aug, Not-Taking Cefadroxil 500 mg 1 capsules Orally Twice a day Not-Taking diphenhydrAMINE HCl 25 mg 1 capsule as needed Orally every 6 hrs Aug, Not-Taking Ibuprofen 800 MG 1 tablet with food or milk as needed Ora lly Three times a day Active Omeprazole 40 MG 1 capsule Orally Once a day Aug, Not-Taking Magnesium 200 MG 2 tablets with a meal Orally Once a day 0 Aug, Not-Taking Eliquis 5 MG as directed Orally Acti ve Bisacodyl 10 MG 1 suppository as needed Rectal Once a day Aug, Not-Taking Benadryl Allergy 25 MG 1 tablet as needed Orally every 8 hrs Active oxyCODONE-Acetaminophen 5-325 MG 1 tablet as needed Orally twice a day Aug, Not-Taking Milk of Magnesia 2400 MG/10ML 5 ml Orally once daily 2017 Not-Taking Isaac - 1 unit Orally twice daily 7-7-1.5g Aug, Not-Taking Multiple Vitamin - 1 tablet Orally Once a day Aug, Not-Taking Omeprazole 40mg 40gm 1 cap oral daily Not-Taking Potassium 1 tab Oral 10 meq, 2 tabs daily Not- Taking PROCEDURES from 1944 to 2021-05-23 Procedure Date Ordered Result Body Site Medication: 4% Lidocaine topical cream (Anecream) 30 gm N/A RESULTS No Results REASON FOR VISIT LT Leg MEDICAL (GENERAL) HISTORY Type Description Date [...] Notes Treatment Notes Treatm ent Clinical Notes May, Chronic venous hypertension (idiopathic) with ulcer of left lower extremity (ICD-10 - I87.312) Dressing changes 3x a week. The dressing should follow those documented in the procedure note Dressing changes 3x a week. The dressing should follow those documented in the procedure note May, Non-pressure chronic ulcer o f other part [...] follow those documented in the procedure note Next Appt Details 1 Week Reason: Provider Name:Ene Maya, 05-26 02:00:00 PM, [address], , [place], [address], Insurance Providers Payer Name Payer Address Payer Phone Insured Name Patient Relati onship to Insured Coverage Start Date Coverage End Date MEDICARE COMPLETE UNITED HEALTHCARE [address] [address] [facility] [phone] [place] self MEDICAID [employer] [address] [facility] [id number] [place] self
--- OUTSIDE RECORDS SUMMARY | 2021-08-07 21:43 | CCD ---
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 Active confirmed 066217230 Problem Tinea pedis 110.4 Active confirmed 1652345 improving Problem Chronic venous hypertension (idiopathic) with ulcer of left lower extremity I87.312 Active confirmed 245201836 Problem Idiopathic chronic venous hy pertension of left lower extremity with ulcer I87.312 Active confirmed 651844894 Problem Deep tissue injury T14.8XXA Active confirmed 580356995 Problem Dermatitis associated with moisture L30.8 Acti ve confirmed 842837254 Problem Stage III pressure ulcer of left heel L89.623 Ac tive confirmed 079455402 Problem 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 Active confirmed 492492669 Problem Stage II pressure ulcer of sacral region L89.152 Active confirmed 003778412 Problem Chronic venous hypertension (idiopathic) with ulcer of right lower extremity I87.311 Active confirmed Problem 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 Active confirmed 024748290 Problem Stage III pressure ulcer of right heel L89.613 A ctive confirmed 296427437 Problem Stage II pressure ulcer of right buttock L89.312 Active confirmed 160006300 Problem Stage II pressure ulcer of left buttock L89.322 Active confirmed 598051797 Problem Non-pressure chronic ulcer o f other part of right lower leg with unspecified severity L97.819 Active confirmed ALLERGIES Allergen (clinical drug ingredient) Drug/Non Drug Allergy do cumented on EMR Reaction Allergy Type Onset Date Status Sulfa (for allergy use only) Unknown Drug Allergy Active ciprofloxacin Cipro([facility] Code:[address]-23) Unknown Drug Allergy Active Penicillin (For Allergies Use Only) Unknown Drug Allerg y Active ENCOUNTERS from 1945 to 2021-06-02 Encounter Location Date Provider Diagnosis [facility] Wound Care [address] [facility] [phone] [place] [address] Jun, Ene Maya IMMUNIZATIONS Vaccine Route Administration Date Status Influenza 18 yrs & older Flublok Unknown Jun 09, 2020 Refused SOCIAL HISTORY Tobacco Use: Social History Observation Description Date Details (start date - stop date) Never Smoker Sex Assigned At : Social History Observation Description Sex Assigned At Unknown Education: Question Answer Notes Level of Education: High School Language: Question Answer Notes Languages spoken: Hungarian Baptist: Question Answer Notes Baptist 21 Temple No hinduism beliefs that would impact health [...] Notes Start Da te End Date Status Omeprazole 40 MG 1 capsule Orally Once a day Aug, Not-Taking Diphenhydramine 1 tab-25MG Oral PRN Q6H Not-Taking oxyCODONE-Acetaminophen 5-325 MG 1 tablet as needed Orally twice a day Aug, Not-Taking Tylenol 325 MG 2 tablets Orally every 4 hrs Aug, Not-Taking Multiple Vitamin - 1 tablet Orally Once a day Aug, Not-Taking Benadryl Allergy 25 MG 1 tablet as needed Orally every 8 hrs Active Iron 325 (65 Fe) MG 1 tablet Orally Once a day for 30 day(s) Active diphenhydrAMINE HCl 25 mg 1 capsule as needed Orally every 6 hrs Aug, Not-Taking metFORMIN HCl 500 MG 1 tablet with meals Orally Twice a day 500mg Aug, Active Eliquis 5 MG as directed Orally Acti ve Bisacodyl 10 MG 1 suppository as needed Rectal Once a day Aug, Not-Taking Sertraline HCl 25 MG 1 tablet Orally Once a day Aug, 18 Not-Taking Disposable Enema 19-7 GM/118ML Rectal once daily Aug, Not-Taking Sucralfate 1 GM 1 tablet on an empty stomach Orally four times a day and at bedtime Active Glucerna - 180 cc Orally twice a day Aug, Not-Taking Milk of Magnesia 2400 MG/10ML 5 ml Orally once daily 2017 Not-Taking Potassium Chloride ER 10 MEQ TAKE ONE TABLET BY MOUTH ONCE DAILY Oral for 30 Active Ibuprofen 800 MG 1 tablet with food or milk as needed Ora lly Three times a day Active busPIRone HCl 5 MG 1 tablet Orally Twice a day Active Clindamycin HCl 300 MG 1 capsule Orally every 8 hrs Not-Taking Omeprazole 40mg 40gm 1 cap oral daily Not-Taking Fluocinonide 0.05 % Externally Not- Taking Magnesium 200 MG 2 tablets with a meal Orally Once a day 0 Aug, Not-Taking DOK 100 MG TAKE ONE CAPSULE BY MOUTH ONCE DAILY Oral for 90 Active Potassium 1 tab Oral 10 meq, 2 tabs daily Not- Taking Acetominophen 325 prn 325 mg as directed orally as directed Not-Taking Metoprolol Tartrate 25 MG 1 tablet with food Orally Twice a day for 30 day(s) Active Isaac - 1 unit Orally twice daily 7-7-1.5g Aug, Not-Taking Carafate 1 GM 1 tablet on an empty stomach Orally three times daily Aug, Not-Taking Fluocinonide 0.05 % 1 application to lower leg E xternally once a day for a week, then three times weekly for 1 month Jan, Not-Taking Eucerin - Externally twice a day Aug, Not-Taking Potassium Chloride 10 MEQ 1 tablet with food Orally once daily Aug, Not-Taking Aquaphor _ as directed Externally twice daily to dry skin f or 1 month Oct, Not-Taking Ketoconazole 2 % 1 application to affected ar ea Externally twice a day to web spaces Not-Taking Bactrim 400-80 MG 2 tablets Orally every 12 hours for 10 days Mar, Not-Taking Cefadroxil 500 mg 1 capsules Orally Twice a day Not-Taking Omeprazole 40 MG TAKE ONE CAPSULE BY MOUTH ONCE DAILY Oral for 30 Active PROCEDURES No Information RESULTS No Results REASON FOR VISIT C/x [facility] Apt. MEDICAL (GENERAL) HISTORY Type Description [...] PLAN OF TREATMENT Next Appt Details Provider Name:Ene Janet Francesco, 06-09 02:00:00 PM, [address], , [place], [address], Insurance Providers Payer Name Payer Address Payer Phone Insured Name Patient Relati onship to Insured Coverage Start Date Coverage End Date MEDICARE COMPLETE [facility] [address] [address] [facility] [phone] [place] MEDICAID [facility] [address] [facility] [address] [place] self
--- OUTSIDE RECORDS SUMMARY | 2021-08-07 21:43 | CCD ---
Author Organization Unknown Address [address] [place] [id number] Phone [phone] Care Team Providers Care Overcoiler Name Role Phone GUILLAUME WORTHY MD 2 [phone] PEGGY ROSE MD 2 [phone] Allergies Code Code System Name Reaction Severity Status Onset Penicillins Active Medications Name Status Start Date Stop Date buspirone 5 mg tablet Active Not availa ble cephalexin 500 mg capsule TAKE ONE CAPSULE BY MOUTH FOUR TIMES DAILY Completed 02/16/2021 DOK 100 mg capsule TAKE ONE CAPSULE BY MOUTH ONCE DAILY Active No t available Eliquis 5 mg tablet Active Not availabl e Embrace Lancets 30 gauge USE DIRECTED ONCE DAILY TO MONITOR BLOOD GLUCOSE Active Not available ferrous sulfate Active Not available fluconazole 150 mg tablet TAKE ONE TABLET BY MOUTH ONCE A WEEK Completed furosemide 20 mg tablet TAKE ONE TABLET BY MOUTH ONCE DAILY Completed gabapentin 100 mg capsule Take 1 capsule twice a day by oral route. Active Not available ibuprofen 600 mg tablet TAKE ONE TABLET BY MOUTH THREE TIMES DAILY FOR 10 DAYS Completed 02/16/2021 metformin 500 mg tablet TAKE ONE TABLET BY MOUTH TWICE DAILY Active No t available metoprolol tartrate 25 mg tablet TAKE ONE TABLET BY MOUTH TWICE DAILY Active No t available mupirocin 2 % topical ointment APPLY TO RIGHT ON THE LEG ONCE DAILY Completed nitrofurantoin monohydrate/macrocrystals 100 mg capsule TAKE ONE CAPSULE BY MOUTH TWICE DAILY Completed 0 02/16/2021 omeprazole 40 mg capsule,delayed release TAKE ONE CAPSULE BY MOUTH ONCE DAILY Active No t available OneTouch Ultra Blue Test Strip use to monitor blood glucose once daily. Active Not available potassium chloride ER 8 mEq tablet,exten ded release TAKE ONE TABLET BY MOUTH ONCE DAILY Active Not available Prodigy Autocode Meter kit USE DIRECTED DAILY TO MONITOR BLOOD GLUCOSE Active Not available Prodigy No Coding strips USE DIRECTED ONCE DAILY TO MONITOR BLOOD GLUCOSE Active Not available Problems Name Status Onset Date Source Type II Diabetes Mellitus Uncontrolled Active Nicotine Dependence Active 02/19/2021 Atrial Fibrillation Active 04/20/2021 Chronic Ulcer of Lower Extremity Active 04/20/2021 Pancytopenia Active 04/24/2021 Pain in Left Lower Limb Active 04/24/2021 Procedures Date Name Performed by Cholecystectomy Information not avai lable 02/16/2021 XR, Ribs, Unilateral, 2 View Information not available 03/31/2021 XR, Ribs, Unilateral, 2 View Information not available Results Lab Results Date Name Specimen Result Interpretation Description Value Range Status Address 06/26/2021 Glucose, Fingerstick, Blood Blood Glucos e: mg/dl 158 [facility]: [address] [place] [address] 04/20/2021 CMP, Serum or Plasma Blood venous High Glucose 202 mg/dL 65-99 mg/dL Final [facility]: [address] [facility] Blood venous Normal Urea Nitrogen (BUN) 17 mg/dL 7-25 mg/dL Final [facility]: [address] [facility] Blood venous Normal Creatinine 0.82 mg/dL 0.60-0. 93 mg/dL Final [facility]: [address] [facility] Blood venous Normal eGFR Non-afr. Mexican 7 0 mL/min/1.73m2 > or = 60 mL/min/1.73m2 Final [facility]: [address] [facility] Blood venous Normal eGFR 81 mL/min/1.73m2 > or = 60 mL/min/1.73m2 Final [facility]: [address] [facility] Blood venous BUN/creatinine Ratio not applicable (calc) 6-22 (calc) Final [facility]: [address], [place] Blood venous Normal Sodium 138 mmol/L 135-146 mmo l/L Final [facility]: [address] , [place] Blood venous Normal Potassium 3.6 mmol/L 3.5-5.3 mmol/L [facility]: [address] [facility] Blood venous Normal Chloride 99 mmol/L 98-110 mmo l/L Final [facility]: [address] , [place] Blood venous Normal Carbon Dioxide 28 mmol/L 20-3 2 mmol/L Final [facility]: [address] [facility] Blood venous Normal Calcium 9.1 mg/dL 8.6-10.4 mg /dL Final [facility]: [address] [facility] Blood venous Normal Protein, Total 8.1 g/dL 6.1-8 .1 g/dL [facility]: [address] [facility] Blood venous Normal Albumin 3.8 g/dL 3.6-5.1 g/dL [facility]: [address] [facility] Blood venous High Globulin 4.3 g/dL (calc) 1.9- 3.7 g/dL (calc) [facility]: [address] [facility] Blood venous Low Albumin/globulin Ratio 0 .9 (calc) 1.0-2.5 (calc) [facility]: [address] [facility] [facility] Blood venous Normal Bilirubin, Total 0.7 mg/dL 0. 2-1.2 mg/dL [facility]: [address] [facility] Blood venous Normal Alkaline Phosphatase 63 U/L 3 7-153 U/L [facility]: [address] [facility] Blood venous Normal Ast 17 U/L 10-35 U/L Final [facility]: [address] [facility] Blood venous Normal Alt 11 U/L 6-29 U/L Final [facility]: [address] [facility] 04/20/2021 Pathology Review, Smear Blood venous Pathologist Review of Peripheral Smear Final [facility]: [address] [facility] 04/20/2021 CBC W/ Auto Diff Blood venous Normal White B lood Cell Count 3.8 thousand/uL 3.8-10.8 thousand/uL [facility]: [address] [facility] Blood venous Low Red Blood Cell Count 3.7 5 million/uL 3.80-5.10 [facility] [address] [facility] Blood venous Low Hemoglobin 10.4 g/dL 11.7-15. 5 g/dL [facility]: [address] [facility] Blood venous Low Hematocrit 32.4 % 35.0-45.0 % [facility]: [address] [facility] Blood venous Normal Mcv 86.4 fL 80.0-100.0 fL Fi nal [facility]: [address] [facility] Blood venous Normal Mch 27.7 pg 27.0-33.0 pg Fin [facility]: [address] [facility] Blood venous Normal Mchc 32.1 g/dL 32.0-36.0 g/dL [facility]: [address] [facility] Blood venous Normal Rdw 13.3 % 11.0-15.0 % [facility]: [address] [facility] Blood venous Normal Platelet Count 150 thous and/uL 140-400 thousand/uL [facility]: [address] [facility] [facility] Blood venous Normal Mpv 11.0 fL 7.5-12.5 fL Blanca l [facility]: [address] [facility] Blood venous Normal Absolute Neutrophils 160 7 cells/uL 0797-7581 cells/uL [facility] gh: [address] [facility] Blood venous Normal Absolute Lymphocytes 147 1 cells/uL 850-3900 cells/uL [facility]: [address] [facility] Blood venous Normal Absolute Monocytes 410 c ells/uL 200-950 cells/uL [facility]: [address] [facility] Blood venous Normal Absolute Eosinophils 270 cells/uL 15-500 cells/uL [facility]: [address] [facility] Blood venous Normal Absolute Basophils 42 ce lls/uL 0-200 cells/uL [facility]: [address] [facility] Blood venous Normal Neutrophils 42.3 % 38-80 % Fi [facility]: [address] [facility] Blood venous Normal Lymphocytes 38.7 % 15-49 % Fi [facility]: [address] [facility] Blood venous Normal Monocytes 10.8 % 0-13 % [facility]: [address] [facility] Blood venous Normal Eosinophils 7.1 % 0-8 % Fin [facility] Normal Basophils 1.1 % 0-2 % [facility] 04/06/2021 Glucose, Fingerstick, Blood Blood Glucos e: mg/dl 158 [facility]: 238 [facility] 03/22/2021 Glucose, Fingerstick, Blood High Bedside Glucose 179 mg/dL 83- 110 mg/dL [facility]: 83 0 [facility] 03/22/2021 Glucose, Fingerstick, Blood Normal Bedside Glucose 89 mg/dL 83- 110 mg/dL [facility]: 83 0 [facility] 03/22/2021 Glucose, Fingerstick, Blood High Bedside Glucose 185 mg/dL 83- 110 mg/dL [facility]: 83 0 [facility] 03/21/2021 Glucose, Fingerstick, Blood High Bedside Glucose 128 mg/dL 83- 110 mg/dL [facility]: 83 0 [facility] 03/21/2021 Glucose, Fingerstick, Blood High Bedside Glucose 139 mg/dL 83- 110 mg/dL [facility]: 83 0 [facility] 03/21/2021 Glucose, Fingerstick, Blood High Bedside Glucose 138 mg/dL 83- 110 mg/dL [facility]: 83 0 [facility] 03/21/2021 Glucose, Fingerstick, Blood Normal Bedside Glucose 110 mg/dL 83-110 mg/dL [facility]: 83 0 [facility] 03/20/2021 Cbc Low White Blood Count 3.7 10 4.0-10. 0 10 [facility]: [address] [facility] Low Red Blood Count 3.93 10 4.00-5.40 10 [facility]: [address] [facility] Low Hemoglobin 10.6 g/dL 12.0-15.5 g/dL [facility]: [address] [facility] Low Hematocrit 33.9 % 36.0-47.0 % [facility]: [address] [facility] Normal Mean Corpuscular Volume 86.3 fL 80.0 -96.0 fL [facility]: [address] [facility] Normal Mean Corpuscular Hemoglobin 27.0 pg 27.0-33.0 pg [facility]: 0 [facility] Low Mean Corpuscular HGB Conc 31.3 g/dL 32.0-36.5 g/dL [facility]: 0 [facility] Normal Red Cell Distribution Width 14.1 % 1 1.5-14.5 % [facility]: 0 [facility] Low Platelet Count, Automated 132 10 150 -450 10 [facility]: [address] [facility] Normal Nucleated Red Blood Cell % 0.0 % 0- 0 % [facility]: 0 [facility] 03/20/2021 BMP, Serum or Plasma High Glucose, Fastin g 127 mg/dL 70-100 mg/dL [facility]: 83 0 [facility] Normal Blood Urea Nitrogen 14 mg/dL 7-18 mg /dL [facility]: [address] [place] [address] Normal Creatinine for GFR 0.76 mg/dL 0.55-1 .30 mg/dL [facility]: 0 [facility] Normal Glomerular Filtration Rate > 60.0 >3 9 [facility]: 0 [facility] Normal Sodium Level 139 mEq/L 136-145 mEq/L [facility]: 0 [facility] Normal Potassium Serum 3.5 mEq/L 3.5-5.1 mE q/L [facility]: 0 [facility] Normal Chloride Level 107 mEq/L 98-107 mEq/ L [facility]: 0 [facility] Normal Carbon Dioxide Level 27 mEq/L 21-32 mEq/L [facility]: 0 [facility] Low Anion Gap 5 mEq/L 8-16 mEq/L [facility]: 0 [facility] Normal Calcium Level 9.7 mg/dL 8.8-10.2 mg/ dL [facility]: 0 [facility] 03/20/2021 Cbc Normal White Blood Count 4.0 10 4.0-10. 0 10 [facility]: [address] [place] [address] Low Red Blood Count 3.88 10 4.00-5.40 10 [facility]: [address] [place] [address] Low Hemoglobin 10.7 g/dL 12.0-15.5 g/dL [facility]: [address] [place] [address] Low Hematocrit 32.4 % 36.0-47.0 % [facility]: [address] [place] [address] Normal Mean Corpuscular Volume 83.5 fL 80.0 -96.0 fL [facility]: [address] [place] [address] Normal Mean Corpuscular Hemoglobin 27.6 pg 27.0-33.0 pg [facility]: [address] [place] [address] Normal Mean Corpuscular HGB Conc 33.0 g/dL 32.0-36.5 g/dL [facility]: [address] [place] [address] Normal Red Cell Distribution Width 14.2 % 1 1.5-14.5 % [facility]: [address] [place] [address] Low Platelet Count, Automated 137 10 150 -450 10 [facility]: [address] [place] [address] Normal Nucleated Red Blood Cell % 0.0 % 0- 0 % [facility]: [address] [place] [address] 03/20/2021 PT/INR High Prothrombin Time 15.6 secon ds 12.5-14.3 seconds [facility]: [address] [place] [address] Normal Inr 1.21 [facility]: [address] [place] [address] 03/20/2021 Partial Thromboplastin Time Normal Partial Thromboplastin Time 33.1 seconds 24.2-38.5 seconds [facility] nter: [address] [place] [address] 03/20/2021 Troponin I, Blood Normal Troponin I < 0.02 NG/mL < 0.10 NG/mL [facility]: [address] [place] [address] 03/20/2021 TSH, Serum or Plasma Normal Thyroid Stimulating Hormone 1.890 uIU/mL 0.358-3.740 uIU/mL [facility] nter: 830 [facility] 03/20/2021 CMP, Serum or Plasma High Glucose, Fastin g 150 mg/dL 70-100 mg/dL [facility]: 83 0 [facility] Normal Blood Urea Nitrogen 10 mg/dL 7-18 mg /dL [facility]: [address] [facility] Normal Creatinine for GFR 0.67 mg/dL 0.55-1 .30 mg/dL [facility]: [address] [facility] Normal Glomerular Filtration Rate > 60.0 >3 9 [facility]: [address] [facility] Normal Sodium Level 140 mEq/L 136-145 mEq/L [facility]: 0 [facility] Normal Potassium Serum 3.7 mEq/L 3.5-5.1 mE q/L [facility]: 0 [facility] High Chloride Level 108 mEq/L 98-107 mEq/ L [facility]: [address] [facility] Normal Carbon Dioxide Level 24 mEq/L 21-32 mEq/L [facility]: [address] [facility] Normal Anion Gap 8 mEq/L 8-16 mEq/L [facility]: 0 [facility] Low Calcium Level 8.7 mg/dL 8.8-10.2 mg/ dL [facility]: 8[address] [facility] Normal AST/SGOT 15 U/L 7-37 U/L [facility]: [address] [facility] Normal ALT/SGPT 14 U/L 12-78 U/L [facility]: [address] [facility] Normal Alkaline Phosphatase 60 U/L 45-117 U /L [facility]: 0 [facility] Normal Bilirubin,total 0.5 mg/dL 0.2-1.0 mg /dL [facility]: 0 [facility] Normal Total Protein 7.8 gm/dL 6.4-8.2 gm/d L [facility]: 8[address] [facility] Low Albumin 3.0 gm/dL 3.2-5.2 gm/dL Blanca l [facility]: [address] [facility] Low Albumin/globulin Ratio 0.6 1.2-2. 2 [facility]: [address] [facility] 03/20/2021 Cbc Low White Blood Count 3.9 10 4.0-10. 0 10 [facility]: [address] [facility] Low Red Blood Count 3.39 10 4.00-5.40 10 [facility]: [address] [facility] Low Hemoglobin 9.5 g/dL 12.0-15.5 g/dL F inal [facility]: 0 [facility] Low Hematocrit 28.9 % 36.0-47.0 % [facility]: 0 [facility] Normal Mean Corpuscular Volume 85.3 fL 80.0 -96.0 fL [facility]: 0 [facility] Normal Mean Corpuscular Hemoglobin 28.0 pg 27.0-33.0 pg [facility]: 0 [facility] Normal Mean Corpuscular HGB Conc 32.9 g/dL 32.0-36.5 g/dL [facility]: 0 [facility] Normal Red Cell Distribution Width 14.2 % 1 1.5-14.5 % [facility]: 0 [facility] Low Platelet Count, Automated 111 10 150 -450 10 [facility]: 0 [facility] Normal Nucleated Red Blood Cell % 0.0 % 0- 0 % [facility]: [address] [facility] 03/20/2021 Glucose, Fingerstick, Blood High Bedside Glucose 151 mg/dL 83- 110 mg/dL [facility]: 83 0 [facility] 03/20/2021 BMP, Serum or Plasma High Glucose, Fastin g 150 mg/dL 70-100 mg/dL [facility]: 83 0 [facility] Normal Blood Urea Nitrogen 12 mg/dL 7-18 mg /dL Final [facility]: [address] [facility] Normal Creatinine for GFR 0.70 mg/dL 0.55-1 .30 mg/dL Final [facility]: [address] [facility] Normal Glomerular Filtration Rate > 60.0 >3 9 [facility]: [address] [facility] Normal Sodium Level 142 mEq/L 136-145 mEq/L Final [facility]: [address] [facility] Normal Potassium Serum 3.9 mEq/L 3.5-5.1 mE q/L [facility]: [address] [facility] High Chloride Level 109 mEq/L 98-107 mEq/ L [facility]: [address] [facility] Normal Carbon Dioxide Level 29 mEq/L 21-32 mEq/L [facility]: [address] [facility] Low Anion Gap 4 mEq/L 8-16 mEq/L [facility]: [address] [facility] Low Calcium Level 8.2 mg/dL 8.8-10.2 mg/ dL [facility]: [address] [facility] 03/20/2021 Troponin I, Blood Normal Troponin I < 0.02 NG/mL < 0.10 NG/mL [facility]: [address] [facility] 02/24/2021 Iron + TIBC + Ferritin, Serum Blood venous Low Iron, Total 30 mcg/dL 45-160 mcg/dL Final [facility]: [address] [facility] Blood venous Normal Iron Binding Capacity 27 6 mcg/dL (calc) 250-450 mcg/dL (calc) Final [facility]: [address] [facility] Blood venous Low % Saturation 11 % (calc) 16-4 5 % (calc) Final [facility]: [address] [facility] Blood venous Normal Ferritin 104 NG/mL 16-288 NG/ mL Final [facility]: [address] [facility] 02/24/2021 Lipid Panel, Serum Normal Cholesterol, Tota l 147 mg/dL <200 mg/dL Final [facility]: [address] [facility] Low HDL Cholesterol 43 mg/dL > or = 50 m g/dL [facility]: [address] [facility] Normal Triglycerides 90 mg/dL <150 mg/dL Fi nal [facility]: [address] [facility] Normal LDL-cholesterol 86 mg/dL (calc) [facility]: [address] [facility] Normal Chol/hdlc Ratio 3.4 (calc) <5.0 (jovanna c) [facility]: [address] [facility] Normal Non HDL Cholesterol 104 mg/dL (calc) <130 mg/dL (calc) [facility]: [address] [facility] 02/24/2021 TSH + Free T4, Serum Blood venous Normal Tsh 2. 47 mIU/L 0.40- 4.50 mIU/L Final [facility]: [address] [facility] Blood venous Normal T4, Free 0.9 NG/dL 0.8-1.8 NG /dL [facility]: [address] [facility] 02/24/2021 CMP, Serum or Plasma Blood venous High Glucose 165 mg/dL 65-99 mg/dL Final [facility]: [address] [facility] Blood venous Normal Urea Nitrogen (BUN) 15 mg/dL 7-25 mg/dL [facility]: [address] [facility] Blood venous Normal Creatinine 0.64 mg/dL 0.60-0. 93 mg/dL [facility]: [address] [facility] Blood venous Normal eGFR Non-afr. Mexican 8 7 mL/min/1.73m2 > or = 60 mL/min/1.73m2 Final [facility]: [address] [facility] Blood venous Normal eGFR 10 0 mL/min/1.73m2 > or = 60 mL/min/1.73m2 Final [facility]: [address] [facility] Blood venous BUN/creatinine Ratio not applicable (calc) 6-22 (calc) [facility]: [address] [facility] Blood venous Normal Sodium 137 mmol/L 135-146 mmo l/L [facility]: [address] [facility] Blood venous Normal Potassium 4.0 mmol/L 3.5-5.3 mmol/L Final [facility]: [address] [facility] Blood venous Normal Chloride 104 mmol/L 98-110 mm ol/L Final [facility]: [address] [facility] Blood venous Normal Carbon Dioxide 26 mmol/L 20-3 2 mmol/L Final [facility]: [address] [facility] Blood venous Normal Calcium 9.2 mg/dL 8.6-10.4 mg /dL Final [facility]: [address] [facility] Blood venous Normal Protein, Total 7.8 g/dL 6.1-8 .1 g/dL Final [facility]: [address] [facility] Blood venous Normal Albumin 3.7 g/dL 3.6-5.1 g/dL Final [facility]: [address] [facility] Blood venous High Globulin 4.1 g/dL (calc) 1.9- 3.7 g/dL (calc) Final [facility]: [address] [facility] Blood venous Low Albumin/globulin Ratio 0 .9 (calc) 1.0-2.5 (calc) [facility]: [address] [facility] Blood venous Normal Bilirubin, Total 0.4 mg/dL 0. 2-1.2 mg/dL Final [facility]: [address] [facility] Blood venous Normal Alkaline Phosphatase 57 U/L 3 7-153 U/L Final [facility]: [address] [facility] Blood venous Normal Ast 13 U/L 10-35 U/L Final [facility]: [address] [facility] Blood venous Normal Alt 8 U/L 6-29 U/L Final [facility]: [address] [facility] 02/24/2021 CBC W/ Auto Diff Blood venous Normal White B lood Cell Count 3.8 thousand/uL 3.8-10.8 thousand/uL [facility]: [address] [facility] Blood venous Low Red Blood Cell Count 3.7 6 million/uL 3.80-5.10 million/uL [facility] [address] [facility] Blood venous Low Hemoglobin 10.4 g/dL 11.7-15. 5 g/dL Final [facility]: [address] [facility] Blood venous Low Hematocrit 30.5 % 35.0-45.0 % [facility]: [address] [facility] Blood venous Normal Mcv 81.1 fL 80.0-100.0 fL Fi [facility]: [address] [facility] Blood venous Normal Mch 27.7 pg 27.0-33.0 pg Fin al [facility]: [address] [facility] Blood venous Normal Mchc 34.1 g/dL 32.0-36.0 g/dL [facility]: [address] [facility] Blood venous Normal Rdw 13.4 % 11.0-15.0 % [facility]: [address] [facility] Blood venous Normal Platelet Count 158 thous and/uL 140-400 thousand/uL [facility]: 8[address] [facility] Blood venous Normal Mpv 10.4 fL 7.5-12.5 fL Blanca l [facility]: [address] [facility] Blood venous Normal Absolute Neutrophils 178 2 cells/uL 8102-9553 cells/uL [facility] gh: [address] [facility] Blood venous Normal Absolute Lymphocytes 121 2 cells/uL 850-3900 cells/uL [facility]: [address] [facility] Blood venous Normal Absolute Monocytes 369 c ells/uL 200-950 cells/uL [facility] Normal Absolute Eosinophils 407 cells/uL 15-500 cells/uL [facility]: [address] [facility] Blood venous Normal Absolute Basophils 30 ce lls/uL 0-200 cells/uL [facility]: [address] [facility] Blood venous Normal Neutrophils 46.9 % 38-80 % Fi [facility]: [address] [facility] Blood venous Normal Lymphocytes 31.9 % 15-49 % Fi [facility]: [address] [facility] Blood venous Normal Monocytes 9.7 % 0-13 % [facility]: [address] [facility] Blood venous High Eosinophils 10.7 % 0-8 % [facility]: [address] [facility] Blood venous Normal Basophils 0.8 % 0-2 % Final [facility]: [address] [facility] 02/24/2021 Vitamin B12 + Folate, Serum or Blood Blood venous High Vitamin B12 1158 pg/mL 200-1100 pg/mL Final [facility]: [address] [facility] Blood venous Normal Folate, Serum 13.6 NG/mL Final [facility]: [address] [facility] 02/24/2021 Vitamin D, 25-Hydroxy, Total, Serum Blood venous Low Vitamin D,25-Oh,total,ia 29 NG/mL 30-100 NG/mL Final [facility], [place], [facility]: [address] [facility] 02/24/2021 HbA1C (Hemoglobin a1C), Blood Blood venous High Hemoglobin a1C 7.2 % of total HGB <5.7 % of total HGB Final [facility]: [address] [facility] 02/16/2021 Hemoglobin a1C, Fingerstick ABNORMAL Hba1C 7.6 % Final [facility] Medical: [address] [place] [address] Past Encounters 06/26/2021 Atrial Fibrillation; Body Mass Index Less than 16.5; Type II Diabetes Mellitus Uncontrolled Jon Banerjee MD: [address] [place] [phone], Ph. 06/01/2021 Chronic Ulcer of Lower Extremity; Atrial Fibrillation Jon Banerjee MD: [address] [place] [phone], Ph. 04/20/2021 Chronic Ulcer of Lower Extremity; Pain in Left Lower Limb; Atrial Fibrillation; Pancytopenia Leatha Wilson [facility]: [address] [place] [phone], Ph. 03/31/2021 Atrial Fibrillation; Chronic Ulcer of Lower Extremity; Rib Pain; Pain in Right Hip Joint Leatha Wilson [facility]: [address] [place] [phone], Ph. 02/24/2021 Leatha Wilson [facility]: [address] [place] [phone], Ph. 02/16/2021 Nicotine Dependence; Type II Diabetes Mellitus Uncontrolled; Rib Pain; Adult Health Examination Leatha Wilson [facility]: [address] [place] [address], Ph. Social History Tobacco Smoking Status Former Smoker (1 pack per week) Vaccine List Vaccine Type COVID-19, mRNA, LNP-S, PF, 100 mcg/0.5 m L dose 01/05/2021 02/02/2021 Plan of Care Patient Instructions Please continue medications as prescribe d. Please try to maintain good nutrition, adequate rest, adequate physical activities and adequate intake of water daily. Please continue medications as prescribe d. Please try to maintain good nutrition, adequate rest and adequate physical activities and adequate intake of water daily. We have made a referral for you today. We will contact you to set it up. Physical exam done today. Please continu e medications as prescribed. Please continue healthy diet and physical activities. Please try to limit sugars and carbohydrates in your diet. Please try to maintain adequate intake of water daily. Reminders Provider Appointments None recorded. Lab None recorded. Referral None recorded. Procedures None recorded. Surgeries None recorded. Imaging None recorded. Vitals 06/26/2021 03:40PM ESTABLISHED [id number] Height Weight BMI Blood Pressure 68 in 110 lbs 16 oz 16.9 kg/m2 125/73 mm[Hg] 06/01/2021 04:00PM ESTABLISHED [id number] Height Weight BMI Blood Pressure 68 in 111 lbs 8 oz 17 kg/m2 116/76 mm[Hg] 04/20/2021 10:20AM ESTABLISHED [id number] Height Weight BMI Blood Pressure 68 in 111 lbs 8 oz 17 kg/m2 109/72 mm[Hg] 03/31/2021 05:40PM ESTABLISHED [id number] Height Weight BMI Blood Pressure 68 in 111 lbs 2 oz 16.9 kg/m2 104/68 mm[Hg] 02/24/2021 08:50AM NURSE LAB COLLECTION Height 68 in 02/16/2021 01:20PM NEW PATIENT (12yrs - OLDER) Height Weight BMI Blood Pressure 68 in 114 lbs 8 oz 17.4 kg/m2 112/72 mm[Hg]
--- OUTSIDE RECORDS SUMMARY | 2021-08-07 21:43 | CCD ---
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 Active confirmed 162050508 Problem Tinea pedis 110.4 Active confirmed 1865030 improving Problem Chronic venous hypertension (idiopathic) with ulcer of left lower extremity I87.312 Active confirmed 729000575 Problem Idiopathic chronic venous hy pertension of left lower extremity with ulcer I87.312 Active confirmed 655900941 Problem Deep tissue injury T14.8XXA Active confirmed 645347990 Problem Dermatitis associated with moisture L30.8 Acti ve confirmed 925026095 Problem Stage III pressure ulcer of left heel L89.623 Ac tive confirmed 825521861 Problem 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 Active confirmed 376318726 Problem Stage II pressure ulcer of sacral region L89.152 Active confirmed 147063222 Problem Chronic venous hypertension (idiopathic) with ulcer of right lower extremity I87.311 Active confirmed Problem 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 Active confirmed 694523681 Problem Stage III pressure ulcer of right heel L89.613 A ctive confirmed 317632337 Problem Stage II pressure ulcer of right buttock L89.312 Active confirmed 832623495 Problem Stage II pressure ulcer of left buttock L89.322 Active confirmed 053347354 Problem Non-pressure chronic ulcer o f other part of right lower leg with unspecified severity L97.819 Active confirmed ALLERGIES Allergen (clinical drug ingredient) Drug/Non Drug Allergy do cumented on EMR Reaction Allergy Type Onset Date Status Sulfasalazine Sulfa Antibiotics Unknown Drug Allergy Ac tive ciprofloxacin Cipro([facility] Code:[address]-59) Unknown Drug Allergy Active Penicillin (For Allergies Use Only) Unknown Drug Allerg y Active ENCOUNTERS from 1945 to 2021-07-18 Encounter Location Date Provider Diagnosis [facility] Wound Care [address] [facility] [facility] [phone] [place] [address] Jul, Tyson Burgos Chronic venous hypertension (idiopathic) [...] School Language: Question Answer Notes Languages spoken: Tamazight Druze: Question Answer Notes Druze 21 Denominational No cheondoism beliefs that would impact health care. Alcohol [...] Jul, BMI 16.88 kg/m2 Jul, Heart Rate 84 /min Jul, Respiratory Rate 16 /min Jul, Temperature 97.6 degrees Fahrenheit Jul, Oximetry 95 Jul, Blood pressure systolic 127 mm Hg Jul, Blood pressure diastolic 60 mm Hg Jul, MEDICATIONS Medication SIG (Take, Route, Frequency, Duration) Notes Start Da te End Date Status Fluocinonide 0.05 % 1 application to lower leg E xternally once a day for a week, then three times weekly for 1 month Jan, Not-Taking Diphenhydramine 1 tab-25MG Oral PRN Q6H Not-Taking Ibuprofen 800 MG 1 tablet with food or milk as needed Ora lly Three times a day Active Omeprazole 40 MG TAKE ONE CAPSULE BY MOUTH ONCE DAILY Oral for 30 Active Omeprazole 40mg 40gm 1 cap oral daily Not-Taking DOK 100 MG TAKE ONE CAPSULE BY MOUTH ONCE DAILY Oral for 90 Active Benadryl Allergy 25 MG 1 tablet as needed Orally every 8 hrs Active Aquaphor _ as directed Externally twice daily to dry skin f or 1 month Oct, Not-Taking Milk of Magnesia 2400 MG/10ML 5 ml Orally once daily 2017 Not-Taking Bactrim 400-80 MG 2 tablets Orally every 12 hours for 10 days Mar, Not-Taking Isaac - 1 unit Orally twice daily 7-7-1.5g Aug, Not-Taking Multiple Vitamin - 1 tablet Orally Once a day Aug, Not-Taking Acetominophen 325 prn 325 mg as directed orally as directed Not-Taking Disposable Enema 19-7 GM/118ML Rectal once daily Aug, Not-Taking Sucralfate 1 GM 1 tablet on an empty stomach Orally four times a day and at bedtime Active Clindamycin HCl 300 MG 1 capsule Orally every 8 hrs Not-Taking Glucerna - 180 cc Orally twice a day Aug, Not-Taking Eliquis 5 MG as directed Orally Acti ve Metoprolol Tartrate 25 MG 1 tablet with food Orally Twice a day for 30 day(s) Active Ketoconazole 2 % 1 application to affected ar ea Externally twice a day to web spaces Not-Taking Magnesium 200 MG 2 tablets with a meal Orally Once a day 0 Aug, Not-Taking Bisacodyl 10 MG 1 suppository as needed Rectal Once a day Aug, Not-Taking Eucerin - Externally twice a day Aug, Not-Taking metFORMIN HCl 500 MG 1 tablet with meals Orally Twice a day 500mg Aug, Active oxyCODONE-Acetaminophen 5-325 MG 1 tablet as needed Orally twice a day Aug, Not-Taking Potassium Chloride ER 10 MEQ TAKE ONE TABLET BY MOUTH ONCE DAILY Oral for 30 Active busPIRone HCl 5 MG 1 tablet Orally Twice a day Active Potassium 1 tab Oral 10 meq, 2 tabs daily Not- Taking Iron 325 (65 Fe) MG 1 tablet Orally Once a day for 30 day(s) Active diphenhydrAMINE HCl 25 mg 1 capsule as needed Orally every 6 hrs Aug, Not-Taking Fluocinonide 0.05 % Externally Not- Taking Sertraline HCl 25 MG 1 tablet Orally Once a day Aug, Not-Taking Cefadroxil 500 mg 1 capsules Orally Twice a day Not-Taking Tylenol 325 MG 2 tablets Orally every 4 hrs Aug, Not-Taking Omeprazole 40 MG 1 capsule Orally Once a day Aug, Not-Taking Potassium Chloride 10 MEQ 1 tablet with food Orally once daily Aug, Not-Taking Carafate 1 GM 1 tablet on an empty stomach Orally three times daily Aug, Not-Taking PROCEDURES from 1944 to 2021-07-18 Procedure Date Ordered Result Body Site Medication: 4% Lidocaine topical cream (Anecream) 30 gm N/A RESULTS No Results REASON FOR VISIT Left lower leg MEDICAL (GENERAL) HISTORY Type Description Date Medical [...] of left lower extremity (ICD-10 - I87.312) hydrogel lot: [id number] exp: 07/25Jul, 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 (ICD-10 - L97.822) PLAN OF TREATMENT Treatment Notes Assessment Notes Clinical Notes Chronic venous hypertension (idiopathic) with ulcer of left lower extremity hydrogel lot: [id number] exp: 07/25 Next Appt Details 1 Week Reason: Provider Name:Ene Maya, 07-20 01:30:00 PM, Charlie VALDEZ ARTURVarsha, , [place], [address], Provider Name:Tyson Burgos, 01:45:00 PM, Charlie LOVE, , [place], [phone], Provider Name:Tyson Moreajay, 01:45:00 PM, Charlie VALDEZ IVAN, , [place], [address], Insurance Providers Payer Name Payer Address Payer Phone Insured Name Patient Relati onship to Insured Coverage Start Date Coverage End Date MEDICARE COMPLETE [employer] [address] [address] [facility] [phone] [place] self MEDICAID [employer] [address] [facility] [id number] [place] self
--- OUTSIDE RECORDS SUMMARY | 2021-08-07 21:43 | CCD ---
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 Active confirmed 964830877 Problem Tinea pedis 110.4 Active confirmed 5758363 improving Problem Chronic venous hypertension (idiopathic) with ulcer of left lower extremity I87.312 Active confirmed 000467186 Problem Idiopathic chronic venous hy pertension of left lower extremity with ulcer I87.312 Active confirmed 346894888 Problem Deep tissue injury T14.8XXA Active confirmed 878818413 Problem Dermatitis associated with moisture L30.8 Acti ve confirmed 682331948 Problem Stage III pressure ulcer of left heel L89.623 Ac tive confirmed 787407220 Problem 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 Active confirmed 354339688 Problem Stage II pressure ulcer of sacral region L89.152 Active confirmed 743750651 Problem Chronic venous hypertension (idiopathic) with ulcer of right lower extremity I87.311 Active confirmed Problem 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 Active confirmed 211928243 Problem Stage III pressure ulcer of right heel L89.613 A ctive confirmed 390232177 Problem Stage II pressure ulcer of right buttock L89.312 Active confirmed 024362950 Problem Stage II pressure ulcer of left buttock L89.322 Active confirmed 377112160 Problem Non-pressure chronic ulcer o f other part of right lower leg with unspecified severity L97.819 Active confirmed ALLERGIES Allergen (clinical drug ingredient) Drug/Non Drug Allergy do cumented on EMR Reaction Allergy Type Onset Date Status Sulfa (for allergy use only) Unknown Drug Allergy Active ciprofloxacin Cipro([facility] Code:[address]-36) Unknown Drug Allergy Active Penicillin (For Allergies Use Only) Unknown Drug Allerg y Active ENCOUNTERS from 1945 to 2021-05-18 Encounter Location Date Provider Diagnosis [facility] Wound Care [address] [facility] [phone] [place] [address] May, Ene Maya IMMUNIZATIONS Vaccine Route Administration Date Status Influenza 18 yrs & older Flublok Unknown Jun 09, 2020 Refused SOCIAL HISTORY Tobacco Use: Social History Observation Description Date Details (start date - stop date) Never Smoker Sex Assigned At : Social History Observation Description Sex Assigned At Unknown Education: Question Answer Notes Level of Education: High School Language: Question Answer Notes Languages spoken: Upper Sorbian Orthodox: Question Answer Notes Orthodox 21 Spiritism No shinto beliefs that would impact health care. Alcohol [...] Notes Start Da te End Date Status oxyCODONE-Acetaminophen 5-325 MG 1 tablet as needed Orally twice a day Aug, Not-Taking Magnesium 200 MG 2 tablets with a meal Orally Once a day 0 Aug, Not-Taking DOK 100 MG TAKE ONE CAPSULE BY MOUTH ONCE DAILY Oral for 90 Active Sertraline HCl 25 MG 1 tablet Orally Once a day Aug, Not-Taking Fluocinonide 0.05 % Externally Not- Taking Potassium 1 tab Oral 10 meq, 2 tabs daily Not- Taking Metoprolol Tartrate 25 MG 1 tablet with food Orally Twice a day for 30 day(s) Active Omeprazole 40 MG 1 capsule Orally Once a day Aug, Not-Taking Iron 325 (65 Fe) MG 1 tablet Orally Once a day for 30 day(s) Active diphenhydrAMINE HCl 25 mg 1 capsule as needed Orally every 6 hrs Aug, Not-Taking Ketoconazole 2 % 1 application to affected ar ea Externally twice a day to web spaces Not-Taking Acetominophen 325 prn 325 mg as directed orally as directed Not-Taking Diphenhydramine 1 tab-25MG Oral PRN Q6H Not-Taking Eliquis 5 MG as directed Orally Acti ve Bactrim 400-80 MG 2 tablets Orally every 12 hours for 10 days Mar, Not-Taking Tylenol 325 MG 2 tablets Orally every 4 hrs Aug, Not-Taking Clindamycin HCl 300 MG 1 capsule Orally every 8 hrs Not-Taking Omeprazole 40mg 40gm 1 cap oral daily Not-Taking Aquaphor _ as directed Externally twice daily to dry skin f or 1 month Oct, Not-Taking Benadryl Allergy 25 MG 1 tablet as needed Orally every 8 hrs Active Sucralfate 1 GM 1 tablet on an empty stomach Orally four times a day and at bedtime Active metFORMIN HCl 500 MG 1 tablet with meals Orally Twice a day 500mg Aug, Active Potassium Chloride 10 MEQ 1 tablet with food Orally once daily Aug, Not-Taking Fluocinonide 0.05 % 1 application to lower leg E xternally once a day for a week, then three times weekly for 1 month Jan, Not-Taking busPIRone HCl 5 MG 1 tablet Orally Twice a day Active Cefadroxil 500 mg 1 capsules Orally Twice a day Not-Taking Glucerna - 180 cc Orally twice a day Aug, Not-Taking Eucerin - Externally twice a day Aug, Not-Taking Ibuprofen 800 MG 1 tablet with food or milk as needed Ora lly Three times a day Active Multiple Vitamin - 1 tablet Orally Once a day Aug, Not-Taking Carafate 1 GM 1 tablet on an empty stomach Orally three times daily Aug, Not-Taking Isaac - 1 unit Orally twice daily 7-7-1.5g Aug, Not-Taking Milk of Magnesia 2400 MG/10ML 5 ml Orally once daily 2017 Not-Taking Disposable Enema 19-7 GM/118ML Rectal once daily Aug, Not-Taking Potassium Chloride ER 10 MEQ TAKE ONE TABLET BY MOUTH ONCE DAILY Oral for 30 Active Omeprazole 40 MG TAKE ONE CAPSULE BY MOUTH ONCE DAILY Oral for 30 Active Bisacodyl 10 MG 1 suppository as needed Rectal Once a day Aug, Not-Taking PROCEDURES No Information RESULTS No Results REASON FOR VISIT Concerns MEDICAL (GENERAL) HISTORY Type Description Date Medical [...] OF TREATMENT Next Appt Details Provider Name:Ene Maya, 05-19 01:30:00 PM, Charlie LOVE, , [place], [address], Provider Name:Ene Maya, 05-26 02:00:00 PM, Charlie LOVE, , [place], [address], Insurance Providers Payer Name Payer Address Payer Phone Insured Name Patient Relati onship to Insured Coverage Start Date Coverage End Date MEDICARE COMPLETE [facility] [address] [address] [facility] [id number] [place] self MEDICAID [facility] [address] [facility] [id number] [place] self
--- OUTSIDE RECORDS SUMMARY | 2021-08-07 21:43 | CCD ---
Author Organization Unknown Address [address] [place] [id number] Phone [phone] Care Team Providers Care [employer]ricating [employer] Tender Name Role Phone GUILLAUME WORTHY MD 2 [phone] PEGGY ROSE MD 2 [phone] Allergies Code Code System Name Reaction Severity [...] Result Interpretation Description Value Range Status Address 04/20/2021 CMP, Serum or Plasma Blood venous High Glucose 202 mg/dL 65-99 mg/dL Final [facility]: [address] [facility] Blood venous Normal Urea Nitrogen (BUN) 17 mg/dL 7-25 mg/dL Final [facility]: [address] [facility] Blood venous Normal Creatinine 0.82 mg/dL 0.60-0. 93 mg/dL Final [facility]: [address] [facility] Blood venous Normal eGFR Non-afr. Swazi 7 0 mL/min/1.73m2 > or = 60 mL/min/1.73m2 Final [facility]: [address] [facility] Blood venous Normal eGFR 81 mL/min/1.73m2 > or = 60 mL/min/1.73m2 Final [facility]: [address] [facility] Blood venous BUN/creatinine Ratio not applicable (calc) 6-22 (calc) Final [facility]: [address] [facility] Blood venous Normal Sodium 138 mmol/L 135-146 mmo l/L Final [facility]: [address] [facility] Blood venous Normal Potassium 3.6 mmol/L 3.5-5.3 mmol/L Final [facility]: [address] [facility] Blood venous Normal Chloride 99 mmol/L 98-110 mmo l/L Final [facility]: [address] [facility] Blood venous Normal Carbon Dioxide 28 mmol/L 20-3 2 mmol/L [facility]: [address] [facility] Blood venous Normal Calcium 9.1 mg/dL 8.6-10.4 mg /dL Final [facility]: [address] [facility] Blood venous Normal Protein, Total 8.1 g/dL 6.1-8 .1 g/dL [facility] Normal Albumin 3.8 g/dL 3.6-5.1 g/dL [facility]: [address] [facility] Blood venous High Globulin 4.3 g/dL (calc) 1.9- 3.7 g/dL (calc) [facility]: [address] [facility] Blood venous Low Albumin/globulin Ratio 0 .9 (calc) 1.0-2.5 (calc) [facility]: [address] [facility] Blood venous Normal Bilirubin, Total 0.7 mg/dL 0. 2-1.2 mg/dL [facility]: [address] [facility] Blood venous Normal Alkaline Phosphatase 63 U/L 3 7-153 U/L [facility]: [address] [facility] Blood venous Normal Ast 17 U/L 10-35 U/L [facility]: [address] [facility] Blood venous Normal Alt 11 U/L 6-29 U/L Final [facility]: [address] [facility] 04/20/2021 Pathology Review, Smear Blood venous Pathologist Review of Peripheral Smear Final [facility] [address] 04/20/2021 CBC W/ Auto Diff Blood venous Normal White B lood Cell Count 3.8 thousand/uL 3.8-10.8 thousand/uL [facility]: [address] [facility] Blood venous Low Red Blood Cell Count 3.7 5 million/uL 3.80-5.10 million/[facility]L [facility] [address] [facility] Blood venous Low Hemoglobin 10.4 g/dL 11.7-15. 5 g/dL [facility]: [address] [facility] Blood venous Low Hematocrit 32.4 % 35.0-45.0 % [facility]: [address] [facility] Blood venous Normal Mcv 86.4 fL 80.0-100.0 fL Fi nal [facility]: [address] [facility] Blood venous Normal Mch 27.7 pg 27.0-33.0 pg Fin [facility] Normal Mchc 32.1 g/dL 32.0-36.0 g/dL [facility]: [address] [facility] Blood venous Normal Rdw 13.3 % 11.0-15.0 % [facility]: [address] [facility] Blood venous Normal Platelet Count 150 thous and/uL 140-400 thousand/uL [facility]: [address] [facility] Blood venous Normal Mpv 11.0 fL 7.5-12.5 fL [facility]: [address] [facility] Blood venous Normal Absolute Neutrophils 160 7 cells/uL 0391-0526 cells/uL [facility]: [address] [facility] Blood venous Normal Absolute Lymphocytes 147 1 cells/uL 850-3900 cells/uL [facility]: [address] [facility] Blood venous Normal Absolute Monocytes 410 c ells/uL 200-950 cells/uL [facility]: [address] [facility] Blood venous Normal Absolute Eosinophils 270 cells/uL 15-500 cells/uL [facility]: [address] [facility] Blood venous Normal Absolute Basophils 42 ce lls/uL 0-200 cells/uL [facility]: [facility] Blood venous Normal Neutrophils 42.3 % 38-80 % Fi [facility]: [address] [facility] Blood venous Normal Lymphocytes 38.7 % 15-49 % Fi [facility]: [address] [facility] Blood venous Normal Monocytes 10.8 % 0-13 % [facility]: [address] [facility] Blood venous Normal Eosinophils 7.1 % 0-8 % Fin [facility]: [address] [facility] Blood venous Normal Basophils 1.1 % 0-2 % [facility]: [address] [facility] 04/06/2021 Glucose, Fingerstick, Blood Blood Glucos e: mg/dl 158 [facility]: [address] [place] [address] 03/22/2021 Glucose, Fingerstick, Blood High Bedside Glucose 179 mg/dL 83- 110 mg/dL [facility]: 83 0 [facility] 03/22/2021 Glucose, Fingerstick, Blood Normal Bedside Glucose 89 mg/dL 83- 110 mg/dL [facility]: 83 0 [facility] 03/22/2021 Glucose, Fingerstick, Blood High Bedside Glucose 185 mg/dL 83- 110 mg/dL [facility]: 83 0 [facility] 03/21/2021 Glucose, Fingerstick, Blood High Bedside Glucose 128 mg/dL 83- 110 mg/dL [facility]: 83 0 [facility] 03/21/2021 Glucose, Fingerstick, Blood High Bedside Glucose 139 mg/dL 83- 110 mg/dL [facility]: 83 0 [facility] 03/21/2021 Glucose, Fingerstick, Blood High Bedside Glucose 138 mg/dL 83- 110 mg/dL [facility]: 83 0 [facility] 03/21/2021 Glucose, Fingerstick, Blood Normal Bedside Glucose 110 mg/dL 83-110 mg/dL [facility]: 83 0 [facility] 03/20/2021 Cbc Low White Blood Count 3.7 10 4.0-10. 0 10 [facility]: 830 [facility] Low Red Blood Count 3.93 10 4.00-5.40 10 [facility]: 830 [facility] Low Hemoglobin 10.6 g/dL 12.0-15.5 g/dL [facility]: 830 [facility] Low Hematocrit 33.9 % 36.0-47.0 % [facility]: 830 [facility] Normal Mean Corpuscular Volume 86.3 fL 80.0 -96.0 fL [facility]: 830 [facility] Normal Mean Corpuscular Hemoglobin 27.0 pg 27.0-33.0 pg [facility]: 830 [facility] Low Mean Corpuscular HGB Conc 31.3 g/dL 32.0-36.5 g/dL [facility]: 0 [facility] Normal Red Cell Distribution Width 14.1 % 1 1.5-14.5 % [facility]: 0 [facility] Low Platelet Count, Automated 132 10 150 -450 10 [facility]: 0 [facility] Normal Nucleated Red Blood Cell % 0.0 % 0- 0 % [facility]: 8[address] [facility] 03/20/2021 BMP, Serum or Plasma High Glucose, Fastin g 127 mg/dL 70-100 mg/dL [facility]: 83 0 [facility] Normal Blood Urea Nitrogen 14 mg/dL 7-18 mg /dL [facility]: [address] [place] [address] Normal Creatinine for GFR 0.76 mg/dL 0.55-1 .30 mg/dL [facility]: 0 [facility] Normal Glomerular Filtration Rate > 60.0 >3 9 [facility]: 8[address] [facility] Normal Sodium Level 139 mEq/L 136-145 mEq/L [facility]: 0 [facility] Normal Potassium Serum 3.5 mEq/L 3.5-5.1 mE q/L [facility]: 0 [facility] Normal Chloride Level 107 mEq/L 98-107 mEq/ L [facility]: 0 [facility] Normal Carbon Dioxide Level 27 mEq/L 21-32 mEq/L [facility]: 0 [facility] Low Anion Gap 5 mEq/L 8-16 mEq/L [facility]: 0 [facility] Normal Calcium Level 9.7 mg/dL 8.8-10.2 mg/ dL [facility]: 0 [facility] 03/20/2021 Cbc Normal White Blood Count 4.0 10 4.0-10. 0 10 [facility]: 0 [facility] Low Red Blood Count 3.88 10 4.00-5.40 10 [facility]: [address] [place] [address] Low Hemoglobin 10.7 g/dL 12.0-15.5 g/dL [facility]: [address] [place] [address] Low Hematocrit 32.4 % 36.0-47.0 % [facility]: [address] [place] [address] Normal Mean Corpuscular Volume 83.5 fL 80.0 -96.0 fL [facility]: [address] [place] [address] Normal Mean Corpuscular Hemoglobin 27.6 pg 27.0-33.0 pg [facility]: [address] [place] [address] Normal Mean Corpuscular HGB Conc 33.0 g/dL 32.0-36.5 g/dL [facility]: [address] [place] [address] Normal Red Cell Distribution Width 14.2 % 1 1.5-14.5 % [facility]: [address] [place] [address] Low Platelet Count, Automated 137 10 150 -450 10 [facility]: [address] [place] [address] Normal Nucleated Red Blood Cell % 0.0 % 0- 0 % [facility]: [address] [place] [address] 03/20/2021 PT/INR High Prothrombin Time 15.6 secon ds 12.5-14.3 seconds [facility]: [address] [place] [address] Normal Inr 1.21 [facility]: [address] [place] [address] 03/20/2021 Partial Thromboplastin Time Normal Partial Thromboplastin Time 33.1 seconds 24.2-38.5 seconds [facility] nter: [address] [place] [address] 03/20/2021 Troponin I, Blood Normal Troponin I < 0.02 NG/mL < 0.10 NG/mL [facility]: [address] [place] [address] 03/20/2021 TSH, Serum or Plasma Normal Thyroid Stimulating Hormone 1.890 uIU/mL 0.358-3.740 uIU/mL [facility] nter: [address] [place] [address] 03/20/2021 CMP, Serum or Plasma High Glucose, Fastin g 150 mg/dL 70-100 mg/dL [facility]: 83 0 [facility] Normal Blood Urea Nitrogen 10 mg/dL 7-18 mg /dL [facility]: 830 [facility] Normal Creatinine for GFR 0.67 mg/dL 0.55-1 .30 mg/dL [facility]: 830 [facility] Normal Glomerular Filtration Rate > 60.0 >3 9 [facility]: 8[address] [facility] Normal Sodium Level 140 mEq/L 136-145 mEq/L [facility]: 830 [facility] Normal Potassium Serum 3.7 mEq/L 3.5-5.1 mE q/L [facility]: 830 [facility] High Chloride Level 108 mEq/L 98-107 mEq/ L [facility]: 830 [facility] Normal Carbon Dioxide Level 24 mEq/L 21-32 mEq/L [facility]: 830 [facility] Normal Anion Gap 8 mEq/L 8-16 mEq/L [facility]: 830 [facility] Low Calcium Level 8.7 mg/dL 8.8-10.2 mg/ dL [facility]: 830 [facility] Normal AST/SGOT 15 U/L 7-37 U/L [facility]: 830 [facility] Normal ALT/SGPT 14 U/L 12-78 U/L [facility]: 830 [facility] Normal Alkaline Phosphatase 60 U/L 45-117 U /L [facility]: 830 [facility] Normal Bilirubin,total 0.5 mg/dL 0.2-1.0 mg /dL [facility]: 830 [facility] Normal Total Protein 7.8 gm/dL 6.4-8.2 gm/d L [facility]: 830 [facility] Low Albumin 3.0 gm/dL 3.2-5.2 gm/dL Blanca l [facility]: 830 [facility] Low Albumin/globulin Ratio 0.6 1.2-2. 2 [facility]: 830 [facility] 03/20/2021 Cbc Low White Blood Count 3.9 10 4.0-10. 0 10 [facility]: 830 [facility] Low Red Blood Count 3.39 10 4.00-5.40 10 [facility]: 830 [facility] Low Hemoglobin 9.5 g/dL 12.0-15.5 g/dL F inal [facility]: 830 [facility] Low Hematocrit 28.9 % 36.0-47.0 % [facility]: 0 [facility] Normal Mean Corpuscular Volume 85.3 fL 80.0 -96.0 fL [facility]: 0 [facility] Normal Mean Corpuscular Hemoglobin 28.0 pg 27.0-33.0 pg [facility]: 0 [facility] Normal Mean Corpuscular HGB Conc 32.9 g/dL 32.0-36.5 g/dL [facility]: 0 [facility] Normal Red Cell Distribution Width 14.2 % 1 1.5-14.5 % [facility]: 0 [facility] Low Platelet Count, Automated 111 10 150 -450 10 [facility]: 0 [facility] Normal Nucleated Red Blood Cell % 0.0 % 0- 0 % [facility]: 830 [facility] 03/20/2021 Glucose, Fingerstick, Blood High Bedside Glucose 151 mg/dL 83- 110 mg/dL [facility]: 83 0 [facility] 03/20/2021 BMP, Serum or Plasma High Glucose, Fastin g 150 mg/dL 70-100 mg/dL [facility]: 83 0 [facility] Normal Blood Urea Nitrogen 12 mg/dL 7-18 mg /dL [facility]: 0 [facility] Normal Creatinine for GFR 0.70 mg/dL 0.55-1 .30 mg/dL Final [facility]: 0 [facility] Normal Glomerular Filtration Rate > 60.0 >3 9 [facility]: 830 [facility] Normal Sodium Level 142 mEq/L 136-145 mEq/L [facility]: 830 [facility] Normal Potassium Serum 3.9 mEq/L 3.5-5.1 mE q/L Final [facility]: 830 [facility] High Chloride Level 109 mEq/L 98-107 mEq/ L [facility]: 830 [facility] Normal Carbon Dioxide Level 29 mEq/L 21-32 mEq/L [facility]: 8[address] [facility] Low Anion Gap 4 mEq/L 8-16 mEq/L [facility]: 830 [facility] Low Calcium Level 8.2 mg/dL 8.8-10.2 mg/ dL [facility]: 830 [facility] 03/20/2021 Troponin I, Blood Normal Troponin I < 0.02 NG/mL < 0.10 NG/mL Final [facility]: 830 [facility] 02/24/2021 Iron + TIBC + Ferritin, Serum Blood venous Low Iron, Total 30 mcg/dL 45-160 mcg/dL Final [facility]: [address] [facility] Blood venous Normal Iron Binding Capacity 27 6 mcg/dL (calc) 250-450 mcg/dL (calc) Final [facility]: [address] [facility] Blood venous Low % Saturation 11 % (calc) 16-4 5 % (calc) Final [facility]: [address] [facility] Blood venous Normal Ferritin 104 NG/mL 16-288 NG/ mL Final [facility]: [address] [facility] 02/24/2021 Lipid Panel, Serum Normal Cholesterol, Tota l 147 mg/dL <200 mg/dL Final [facility] gh: [address] [facility] Low HDL Cholesterol 43 mg/dL > or = 50 m g/dL Final [facility]: [address] [facility] Normal Triglycerides 90 mg/dL <150 mg/dL Fi nal [facility]: [address] [facility] Normal LDL-cholesterol 86 mg/dL (calc) [facility]: [address] [facility] Normal Chol/hdlc Ratio 3.4 (calc) <5.0 (jovanna c) [facility]: [address] [facility] Normal Non HDL Cholesterol 104 mg/dL (calc) <130 mg/dL (calc) Final [facility]: [address] [facility] 02/24/2021 TSH + Free T4, Serum Blood venous Normal Tsh 2. 47 mIU/L 0.40- 4.50 mIU/L Final [facility]: [address] [facility] Blood venous Normal T4, Free 0.9 NG/dL 0.8-1.8 NG /dL [facility]: [facility] 02/24/2021 CMP, Serum or Plasma Blood venous High Glucose 165 mg/dL 65-99 mg/dL Final [facility]: [address] [facility] Blood venous Normal Urea Nitrogen (BUN) 15 mg/dL 7-25 mg/dL [facility]: [address] [facility] Blood venous Normal Creatinine 0.64 mg/dL 0.60-0. 93 mg/dL [facility]: [address] [facility] Blood venous Normal eGFR Non-afr. Swazi 8 7 mL/min/1.73m2 > or = 60 mL/min/1.73m2 Final [facility]: [address] [facility] Blood venous Normal eGFR 10 0 mL/min/1.73m2 > or = 60 mL/min/1.73m2 Final [facility]: [address] [facility] Blood venous BUN/creatinine Ratio not applicable (calc) 6-22 (calc) [facility]: [address] [facility] Blood venous Normal Sodium 137 mmol/L 135-146 mmo l/L [facility]: [address] [facility] Blood venous Normal Potassium 4.0 mmol/L 3.5-5.3 mmol/L [facility]: [address] [facility] Blood venous Normal Chloride 104 mmol/L 98-110 mm ol/L Final [facility]: [address] [facility] Blood venous Normal Carbon Dioxide 26 mmol/L 20-3 2 mmol/L [facility]: [address] [facility] Blood venous Normal Calcium 9.2 mg/dL 8.6-10.4 mg /dL [facility]: [address] [facility] Blood venous Normal Protein, Total 7.8 g/dL 6.1-8 .1 g/dL Final [facility]: [address] [facility] Blood venous Normal Albumin 3.7 g/dL 3.6-5.1 g/dL [facility]: [address] [facility] Blood venous High Globulin 4.1 g/dL (calc) 1.9- 3.7 g/dL (calc) Final [facility]: [address] [facility] Blood venous Low Albumin/globulin Ratio 0 .9 (calc) 1.0-2.5 (calc) [facility]: [address] [facility] Blood venous Normal Bilirubin, Total 0.4 mg/dL 0. 2-1.2 mg/dL Final [facility]: [address] [facility] Blood venous Normal Alkaline Phosphatase 57 U/L 3 7-153 U/L [facility]: [address] [facility] Blood venous Normal Ast 13 U/L 10-35 U/L Final [facility]: [address] [facility] Blood venous Normal Alt 8 U/L 6-29 U/L Final [facility]: [address] [facility] 02/24/2021 CBC W/ Auto Diff Blood venous Normal White B lood Cell Count 3.8 thousand/uL 3.8-10.8 thousand/uL Final [facility]: [address] [facility] Blood venous Low Red Blood Cell Count 3.7 6 million/uL 3.80-5.10 million/uL [facility] [address] [facility] Blood venous Low Hemoglobin 10.4 g/dL 11.7-15. 5 g/dL [facility]: [address] [facility] Blood venous Low Hematocrit 30.5 % 35.0-45.0 % [facility]: [address] [facility] Blood venous Normal Mcv 81.1 fL 80.0-100.[address] [facility]: [address] [facility] Blood venous Normal Mch 27.7 pg 27.0-33.0 pg Fin al [facility]: [address] [facility] Blood venous Normal Mchc 34.1 g/dL 32.0-36.0 g/dL [facility]: [address] [facility] Blood venous Normal Rdw 13.4 % 11.0-15.0 % [facility]: [address] [facility] Blood venous Normal Platelet Count 158 thous and/uL 140-400 thousand/uL [facility]: 875 [facility] Blood venous Normal Mpv 10.4 fL 7.5-12.5 fL [facility]: [address] [facility] Blood venous Normal Absolute Neutrophils 178 2 cells/uL 0599-8975 cells/uL [facility]: [address] [facility] Blood venous Normal Absolute Lymphocytes 121 2 cells/uL 850-3900 cells/uL [facility]: [address] [facility] Blood venous Normal Absolute Monocytes 369 c ells/uL 200-950 cells/uL [facility]: 875 [facility] Blood venous Normal Absolute Eosinophils 407 cells/uL 15-500 cells/uL [facility]: 8[address] [facility] Blood venous Normal Absolute Basophils 30 ce lls/uL 0-200 cells/uL [facility]: [facility] venous Normal Neutrophils 46.9 % 38-80 % Fi [facility]: [address] [facility] Blood venous Normal Lymphocytes 31.9 % 15-49 % Fi [facility]: [address] [facility] Blood venous Normal Monocytes 9.7 % 0-13 % [facility]: [address] [facility] Blood venous High Eosinophils 10.7 % 0-8 % Fin [facility]: [address] [facility] Blood venous Normal Basophils 0.8 % 0-2 % [facility]: [address] [facility] 02/24/2021 Vitamin B12 + Folate, Serum or Blood Blood venous High Vitamin B12 1158 pg/mL 200-1100 pg/mL Final [facility]: [address] [facility] Blood venous Normal Folate, Serum 13.6 NG/mL Final [facility]: [address] [facility] 02/24/2021 Vitamin D, 25-Hydroxy, Total, Serum Blood venous Low Vitamin D,25-Oh,total,ia 29 NG/mL 30-100 NG/mL Final [facility]: [address] [facility] 02/24/2021 HbA1C (Hemoglobin a1C), Blood Blood venous High Hemoglobin a1C 7.2 % of total HGB <5.7 % of total HGB Final [facility]: [address] [facility] 02/16/2021 Hemoglobin a1C, Fingerstick ABNORMAL Hba1C 7.6 % Final [facility]: [address] [place] [address] Past Encounters 06/01/2021 Chronic Ulcer of Lower Extremity; Atrial Fibrillation Jon Banerjee MD: [address] [place] [phone], Ph. 04/20/2021 Chronic Ulcer of Lower Extremity; Pain in Left Lower Limb; Atrial Fibrillation; Pancytopenia [facility]: [address] [place] [phone], Ph. 03/31/2021 Atrial Fibrillation; Chronic Ulcer of Lower Extremity; Rib Pain; Pain in Right Hip Joint [facility] [address] [place] [phone], Ph. 02/24/2021 [facility]: [address] [place] [phone], Ph. 02/16/2021 Nicotine Dependence; Type II Diabetes Mellitus Uncontrolled; Rib Pain; Adult Health Examination [facility]: [address] [place] [phone], Ph. Social History Tobacco Smoking Status Former [...] Surgeries None recorded. Imaging None recorded. Vitals 06/01/2021 04:00PM ESTABLISHED [id number] Height Weight BMI Blood Pressure 68 in 111 lbs 8 oz 17 kg/m2 116/76 mm[Hg] 04/20/2021 10:20AM ESTABLISHED [id number] Height Weight BMI Blood Pressure 68 in 111 lbs 8 oz 17 kg/m2 109/72 mm[Hg] 03/31/2021 05:40PM ESTABLISHED [id number] Height Weight BMI Blood Pressure 68 in 111 lbs 2 oz 16.9 kg/m2 104/68 mm[Hg] 02/24/2021 08:50AM NURSE LAB COLLECTION Height 68 in 02/16/2021 01:20PM NEW PATIENT (11yrs - OLDER) Height Weight BMI Blood Pressure 68 in 114 lbs 8 oz 17.4 kg/m2 112/72 mm[Hg]
--- OUTSIDE RECORDS SUMMARY | 2021-08-07 21:43 | CCD ---
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 Active confirmed 751894615 Problem Tinea pedis 110.4 Active confirmed 6806653 improving Problem Chronic venous hypertension (idiopathic) with ulcer of left lower extremity I87.312 Active confirmed 227505615 Problem Idiopathic chronic venous hy pertension of left lower extremity with ulcer I87.312 Active confirmed 402484858 Problem Deep tissue injury T14.8XXA Active confirmed 626795704 Problem Dermatitis associated with moisture L30.8 Acti ve confirmed 433372780 Problem Stage III pressure ulcer of left heel L89.623 Ac tive confirmed 057152672 Problem 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 Active confirmed 407582159 Problem Stage II pressure ulcer of sacral region L89.152 Active confirmed 606072188 Problem Chronic venous hypertension (idiopathic) with ulcer of right lower extremity I87.311 Active confirmed Problem 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 Active confirmed 693676516 Problem Stage III pressure ulcer of right heel L89.613 A ctive confirmed 988386789 Problem Stage II pressure ulcer of right buttock L89.312 Active confirmed 093122183 Problem Stage II pressure ulcer of left buttock L89.322 Active confirmed 445700373 Problem Non-pressure chronic ulcer o f other part of right lower leg with unspecified severity L97.819 Active confirmed ALLERGIES Allergen (clinical drug ingredient) Drug/Non Drug Allergy do cumented on EMR Reaction Allergy Type Onset Date Status Sulfasalazine Sulfa Antibiotics Unknown Drug Allergy Ac tive ciprofloxacin Cipro([facility] Code:[address]-32) Unknown Drug Allergy Active Penicillin (For Allergies Use Only) Unknown Drug Allerg y Active ENCOUNTERS from 1945 to 2021-07-04 Encounter Location Date Provider Diagnosis [facility] W[facility] Care [address] [facility] [phone] [place] [address] Jul, Ene Maya IMMUNIZATIONS Vaccine Route Administration Date [...] Language: Question Answer Notes Languages spoken: Hungarian Anabaptism: Question Answer Notes Anabaptism 21 Faith No christianity beliefs that would impact health care. Alcohol [...] Notes Start Da te End Date Status Tylenol 325 MG 2 tablets Orally every 4 hrs Aug, Not-Taking Eucerin - Externally twice a day Aug, Not-Taking Iron 325 (65 Fe) MG 1 tablet Orally Once a day for 30 day(s) Active Ketoconazole 2 % 1 application to affected ar ea Externally twice a day to web spaces Not-Taking Aquaphor _ as directed Externally twice daily to dry skin f or 1 month Oct, Not-Taking Omeprazole 40mg 40gm 1 cap oral daily Not-Taking Omeprazole 40 MG 1 capsule Orally Once a day Aug, Not-Taking Glucerna - 180 cc Orally twice a day Aug, Not-Taking DOK 100 MG TAKE ONE CAPSULE BY MOUTH ONCE DAILY Oral for 90 Active Cefadroxil 500 mg 1 capsules Orally Twice a day Not-Taking Fluocinonide 0.05 % Externally Not- Taking Clindamycin HCl 300 MG 1 capsule Orally every 8 hrs Not-Taking Ibuprofen 800 MG 1 tablet with food or milk as needed Ora lly Three times a day Active Diphenhydramine 1 tab-25MG Oral PRN Q6H Not-Taking Magnesium 200 MG 2 tablets with a meal Orally Once a day 0 Aug, Not-Taking Fluocinonide 0.05 % 1 application to lower leg E xternally once a day for a week, then three times weekly for 1 month Jan, Not-Taking Acetominophen 325 prn 325 mg as directed orally as directed Not-Taking Potassium 1 tab Oral 10 meq, 2 tabs daily Not- Taking Isaac - 1 unit Orally twice daily 7-7-1.5g Aug, Not-Taking Carafate 1 GM 1 tablet on an empty stomach Orally three times daily Aug, Not-Taking Disposable Enema 19-7 GM/118ML Rectal once daily Aug, Not-Taking diphenhydrAMINE HCl 25 mg 1 capsule as needed Orally every 6 hrs Aug, Not-Taking oxyCODONE-Acetaminophen 5-325 MG 1 tablet as needed Orally twice a day Aug, Not-Taking Bactrim 400-80 MG 2 tablets Orally every 12 hours for 10 days Mar, Not-Taking Milk of Magnesia 2400 MG/10ML 5 ml Orally once daily 2017 Not-Taking Potassium Chloride 10 MEQ 1 tablet with food Orally once daily Aug, Not-Taking Metoprolol Tartrate 25 MG 1 tablet with food Orally Twice a day for 30 day(s) Active Eliquis 5 MG as directed Orally Acti ve Benadryl Allergy 25 MG 1 tablet as needed Orally every 8 hrs Active Potassium Chloride ER 10 MEQ TAKE ONE TABLET BY MOUTH ONCE DAILY Oral for 30 Active Sertraline HCl 25 MG 1 tablet Orally Once a day Aug, Not-Taking Omeprazole 40 MG TAKE ONE CAPSULE BY MOUTH ONCE DAILY Oral for 30 Active Bisacodyl 10 MG 1 suppository as needed Rectal Once a day Aug, Not-Taking Multiple Vitamin - 1 tablet Orally Once a day Aug, Not-Taking Sucralfate 1 GM 1 tablet on an empty stomach Orally four times a day and at bedtime Active metFORMIN HCl 500 MG 1 tablet with meals Orally Twice a day 500mg Aug, Active busPIRone HCl 5 MG 1 tablet Orally Twice a day Active PROCEDURES No Information RESULTS No Results REASON FOR VISIT Provider change MEDICAL (GENERAL) HISTORY Type Description Date Medical [...] TREATMENT Next Appt Details Provider Name:Tyson Burgos, 03:15:00 PM, [address], , [place], [address], Insurance Providers Payer Name Payer Address Payer Phone Insured Name Patient Relati onship to Insured Coverage Start Date Coverage End Date MEDICAID [employer] [address] [facility] [id number] [place] MEDICARE COMPLETE UNITED HEALTHCARE [address] [address] [facility] [phone] [place]
--- OUTSIDE RECORDS SUMMARY | 2021-08-07 21:43 | CCD ---
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 Active confirmed 310507503 Problem Tinea pedis 110.4 Active confirmed 8226916 improving Problem Chronic venous hypertension (idiopathic) with ulcer of left lower extremity I87.312 Active confirmed 674059492 Problem Idiopathic chronic venous hy pertension of left lower extremity with ulcer I87.312 Active confirmed 910795230 Problem Deep tissue injury T14.8XXA Active confirmed 795386932 Problem Dermatitis associated with moisture L30.8 Acti ve confirmed 683463864 Problem Stage III pressure ulcer of left heel L89.623 Ac tive confirmed 931918068 Problem 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 Active confirmed 364481971 Problem Stage II pressure ulcer of sacral region L89.152 Active confirmed 360178290 Problem Chronic venous hypertension (idiopathic) with ulcer of right lower extremity I87.311 Active confirmed Problem 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 Active confirmed 135068449 Problem Stage III pressure ulcer of right heel L89.613 A ctive confirmed 591316388 Problem Stage II pressure ulcer of right buttock L89.312 Active confirmed 618862676 Problem Stage II pressure ulcer of left buttock L89.322 Active confirmed 453721578 Problem Non-pressure chronic ulcer o f other part of right lower leg with unspecified severity L97.819 Active confirmed ALLERGIES Allergen (clinical drug ingredient) Drug/Non Drug Allergy do cumented on EMR Reaction Allergy Type Onset Date Status Sulfasalazine Sulfa Antibiotics Unknown Drug Allergy Ac tive ciprofloxacin Cipro([facility] Code:[address]-54) Unknown Drug Allergy Active Penicillin (For Allergies Use Only) Unknown Drug Allerg y Active ENCOUNTERS from 1945 to 2021-06-27 Encounter Location Date Provider Diagnosis [facility] Wound Care [address] [facility] [phone] [place] [address] Jun, Ene Maya Chronic venous hypertension (idiopathic) with [...] School Language: Question Answer Notes Languages spoken: Armenian Baptism: Question Answer Notes Baptism 21 Restoration No christianity beliefs that would impact health [...] No Information VITAL SIGNS Weight 114 lbs Jun, Height 68 in Jun, BMI 17.33 kg/m2 Jun, Heart Rate 77 /min Jun, Respiratory Rate 18 /min Jun, Temperature 98.2 degrees Fahrenheit Jun, Oximetry 96 Jun, Blood pressure systolic 126 mm Hg Jun, Blood pressure diastolic 57 mm Hg Jun, MEDICATIONS Medication SIG (Take, Route, Frequency, Duration) Notes Start Da te End Date Status Omeprazole 40mg 40gm 1 cap oral daily Not-Taking Acetominophen 325 prn 325 mg as directed orally as directed Not-Taking Aquaphor _ as directed Externally twice daily to dry skin f or 1 month Oct, Not-Taking Benadryl Allergy 25 MG 1 tablet as needed Orally every 8 hrs Active DOK 100 MG TAKE ONE CAPSULE BY MOUTH ONCE DAILY Oral for 90 Active Metoprolol Tartrate 25 MG 1 tablet with food Orally Twice a day for 30 day(s) Active Isaac - 1 unit Orally twice daily 7-7-1.5g Aug, Not-Taking Potassium 1 tab Oral 10 meq, 2 tabs daily Not- Taking Ketoconazole 2 % 1 application to affected ar ea Externally twice a day to web spaces Not-Taking Diphenhydramine 1 tab-25MG Oral PRN Q6H Not-Taking Ibuprofen 800 MG 1 tablet with food or milk as needed Ora lly Three times a day Active Potassium Chloride 10 MEQ 1 tablet with food Orally once daily Aug, Not-Taking Eucerin - Externally twice a day Aug, Not-Taking Fluocinonide 0.05 % Externally Not- Taking Omeprazole 40 MG 1 capsule Orally Once a day Aug, Not-Taking Magnesium 200 MG 2 tablets with a meal Orally Once a day 0 Aug, Not-Taking Tylenol 325 MG 2 tablets Orally every 4 hrs Aug, Not-Taking Glucerna - 180 cc Orally twice a day Aug, Not-Taking Fluocinonide 0.05 % 1 application to lower leg E xternally once a day for a week, then three times weekly for 1 month Jan, Not-Taking Milk of Magnesia 2400 MG/10ML 5 ml Orally once daily 2017 Not-Taking Potassium Chloride ER 10 MEQ TAKE ONE TABLET BY MOUTH ONCE DAILY Oral for 30 Active Cefadroxil 500 mg 1 capsules Orally Twice a day Not-Taking Disposable Enema 19-7 GM/118ML Rectal once daily Aug, Not-Taking Iron 325 (65 Fe) MG 1 tablet Orally Once a day for 30 day(s) Active metFORMIN HCl 500 MG 1 tablet with meals Orally Twice a day 500mg Aug, Active Omeprazole 40 MG TAKE ONE CAPSULE BY MOUTH ONCE DAILY Oral for 30 Active Eliquis 5 MG as directed Orally Acti ve Clindamycin HCl 300 MG 1 capsule Orally every 8 hrs Not-Taking Bactrim 400-80 MG 2 tablets Orally every 12 hours for 10 days Mar, Not-Taking Carafate 1 GM 1 tablet on an empty stomach Orally three times daily Aug, Not-Taking Bisacodyl 10 MG 1 suppository as needed Rectal Once a day Aug, Not-Taking Multiple Vitamin - 1 tablet Orally Once a day Aug, Not-Taking Sertraline HCl 25 MG 1 tablet Orally Once a day Aug, Not-Taking diphenhydrAMINE HCl 25 mg 1 capsule as needed Orally every 6 hrs Aug, Not-Taking oxyCODONE-Acetaminophen 5-325 MG 1 tablet as needed Orally twice a day Aug, Not-Taking busPIRone HCl 5 MG 1 tablet Orally Twice a day Active Sucralfate 1 GM 1 tablet on an empty stomach Orally four times a day and at bedtime Active PROCEDURES from 1945 to 2021-06-27 Procedure Date Ordered Result Body Site Medication: 4% Lidocaine topical cream (Anecream) 30 gm N/A RESULTS No Results REASON FOR VISIT Left Leg Wound MEDICAL (GENERAL) HISTORY Type Description Date Medical [...] Notes Treatment Notes Treatm ent Clinical Notes Jun, Chronic venous hypertension (idiopathic) with ulcer of left lower extremity (ICD-10 - I87.312) Dressing changes 3x a week. The dressing should follow those documented in the procedure note Dressing changes 3x a week. The dressing should follow those documented in the procedure note Jun, Non-pressure chronic ulcer o f other part [...] Appt Details 1 Week Reason: Provider Name:Ene Gonzales [place], 06-30 03:15:00 PM, [address], , [place], [address], Insurance Providers Payer Name Payer Address Payer Phone Insured Name Patient Relati onship to Insured Coverage Start Date Coverage End Date MEDICARE COMPLETE UNITED HEALTHCARE [address] [address] [facility] [id number] [place] self MEDICAID [employer] [address] [facility] [address] [place] self
--- OUTSIDE RECORDS SUMMARY | 2021-08-07 21:43 | CCD | Continuity of Care Document ---
Author Author Tiffany ROSE DPM Organization Unknown Address [address] [place] [address], [address] [place] [address] Phone [phone] Care Team Providers Care Screen Examiner Name Role Phone Yasmine Odom M.D. [phone] Salazar Rae, Avinash RUSSELL [phone] Problems Active Problems Provider Date Pain in limb Luke Rose DPM Onset: 12/28/2020 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 mellitus Luke Rose DPM Onset: 12/28/2020 Onychomycosis Luke Rose DPM Onset: 12/28/2020 Social History Type Date Description Comments Sex Unknown ETOH Use Denies alcohol use hasn't had an y alcohol for over a year Tobacco Use Start: Unknown End: Unknown Patient is a former smoker hx 20 years off and on, occas cigarette quit 2000 Allergies and adverse reactions Active Allergies Criticality Reaction | Severity Comments Date Penicillins Unable to assess criticality Hives, Eyes Swell Shut 02/06/2012 Cipro Unable to assess criticality pain in legs 03/22/2015 Medications Active Medications SIG Qnty Indications Ordering Provide r Date Lac-Hydrin Twelve 12% Lotion applied twice a day to dry skin on both feet 280grams Rome Rose DPM 03/22/2015 Lotrisone 1-0.05% Cream apply twice daily 60units Rome Rose DPM 02/13/2013 Hydrocortisone 1% Ointment Ole Max NP Potassium Chloride ER 10Meq Tablets ER Ole Max NP Potassium Chloride ER 10Meq Tablet s ER Take Three Tablets By Mouth Twice Daily Unknown Sucralfate 1gm Tablets Take One Tablet By Mouth Four Times Daily Before Meals And AT Bedtime Unknown Linezolid 600mg Tablets Ole Max NP Sulfamethoxazole/Trimethoprim DS 800-160mg Tablets Take One Tablet By Mouth Twice Daily For Seven Days Unknown Sulfamethoxazole/Trimethoprim DS 800-160mg Tablets Ole Max NP Clindamycin HCL 300mg Capsules Take One Capsule By Mouth Every Eight Hours For 10 Days U nknown Metformin HCL 500mg Tablets Take One Tablet By Mouth Twice Daily Unknown Metformin HCL 500mg Tablets Mansoor SHAH,Ole Sertraline HCL 25mg Tablets Take One Tablet By Mouth Once Daily Unknown Sertraline HCL 25mg Tablets Mansoor SHAH,Ole Azithromycin 250mg Tablets Ole Max NP Lactulose 10GM/15ML Solution Unknown Omeprazole 40mg Capsules DR Mansoor SHAH,Ole Sucralfate 1gm Tablets Ole Max NP Potassium Chloride CR 10Meq Tablets ER Mansoor SHAH,Ole Furosemide 20mg Tablets Mansoor SHAH,lOe Immunizations Description No Information Available Vital Signs Date Vital Result Comment 12/15/2020 3:14pm Height 68 inches 5'8" Weight 132.00 lb BP Systolic 130 mmHg BP Diastolic 68 mmHg Heart Rate 78 /min BMI (Body Mass Index) 20.1 kg/m2 06/03/2018 3:28pm Height 68 inches 5'8" Weight 127.00 lb BP Systolic 113 mmHg BP Diastolic 68 mmHg Heart Rate 62 /min BMI (Body Mass Index) 19.3 kg/m2 Results Description No Information Available Procedures Date Code Description Status 07/04/2021 71073 Debridement 6-10 [employer] Completed 04/25/2021 77927 Debridement 6-10 Nails Electric Completed 02/14/2021 46471 Debridement 6-10 Nails Electric Completed Medical Devices Description No Information Available Encounters Description No Information Available Assessments Date Code Description Provider 07/04/2021 B35.1 Tinea unguium Luke Rose DPM 07/04/2021 E11.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
--- OUTSIDE RECORDS SUMMARY | 2021-08-07 21:43 | CCD ---
Author Author [facility] Organization [facility] Address Unknown Phone Unavailable Care Team Providers Care Property Management Specialist Name Role Phone Tyson Burgos Unavailable PROBLEMS Type Condition ICD9-CM Code ARA11-HW Code Onset Dates Condition S tatus W/U Status Risk SNOMED Code Notes Problem Contact dermatitis, allergic 692.9 Active confirme d 735642637 from history suspect strongly neopsorin contact allergic dermatitis Problem Contact eczematous dermatitis 692.9 Active confirm ed 974700307 subacute eczematous dermatitis Problem 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 Active confirmed 407774811 Problem Tinea pedis 110.4 Active confirmed 0396462 improving Problem Chronic venous hypertension (idiopathic) with ulcer of left lower extremity I87.312 Active confirmed 025229516 Problem Idiopathic chronic venous hy pertension of left lower extremity with ulcer I87.312 Active confirmed 048598353 Problem Deep tissue injury T14.8XXA Active confirmed 316013665 Problem Dermatitis associated with moisture L30.8 Acti ve confirmed 919724342 Problem Stage III pressure ulcer of left heel L89.623 Ac tive confirmed 450407361 Problem 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 Active confirmed 405039938 Problem Stage II pressure ulcer of sacral region L89.152 Active confirmed 467597487 Problem Chronic venous hypertension (idiopathic) with ulcer of right lower extremity I87.311 Active confirmed Problem 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 Active confirmed 699563811 Problem Stage III pressure ulcer of right heel L89.613 A ctive confirmed 202755655 Problem Stage II pressure ulcer of right buttock L89.312 Active confirmed 414585348 Problem Stage II pressure ulcer of left buttock L89.322 Active confirmed 180120729 Problem Non-pressure chronic ulcer o f other part of right lower leg with unspecified severity L97.819 Active confirmed ALLERGIES Allergen (clinical drug ingredient) Drug/Non Drug Allergy do cumented on EMR Reaction Allergy Type Onset Date Status Sulfasalazine Sulfa Antibiotics Unknown Drug Allergy Ac tive ciprofloxacin Cipro([facility] Code:[address]-49) Unknown Drug Allergy Active Penicillin (For Allergies Use Only) Unknown Drug Allerg y Active ENCOUNTERS from 1945 to 2021-06-27 Encounter Location Date Provider Diagnosis [facility] Wound Care [address] [phone] [place] [address] Jun, Tyson Burgos Chronic venous hypertension (idiopathic) with [...] Language: Question Answer Notes Languages spoken: Tamazight Restorationist: Question Answer Notes Restorationist 21 Temple No jewish beliefs that would impact health care. Alcohol [...] Jun, BMI 17.33 kg/m2 Jun, Heart Rate 93 /min Jun, Respiratory Rate 18 /min Jun, Temperature 98.3 degrees Fahrenheit Jun, Oximetry 98 Jun, Blood pressure systolic 134 mm Hg Jun, Blood pressure diastolic 63 mm Hg Jun, MEDICATIONS Medication SIG (Take, [...] of left lower extremity (ICD-10 - I87.312) vashe lot [id number] exp 10/25 applied for 10 minutes Jun, 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 (ICD-10 - L97.822) PLAN OF TREATMENT Treatment Notes Assessment Notes Clinical Notes Chronic venous hypertension (idiopathic) with ulcer of left lower extremity vashe lot [id number] exp 10/25 applied for 10 minutes Future Test Test Name Order Date HEMOGLOBIN A1c [id number] Next Appt Details 1 Week Reason: Provider Name:Ene Maya, 06-30 03:15:00 PM, [address], , [facility] [place], [address], Insurance Providers Payer Name Payer Address Payer Phone Insured Name Patient Relati onship to Insured Coverage Start Date Coverage End Date MEDICARE COMPLETE UNITED HEALTHCARE [address] [address] [facility] [phone] [place] self MEDICAID [employer] [address] [facility] [address] [place] self
--- OUTSIDE RECORDS SUMMARY | 2021-08-07 21:43 | CCD ---
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 Active confirmed 294932370 Problem Tinea pedis 110.4 Active confirmed 0395747 improving Problem Chronic venous hypertension (idiopathic) with ulcer of left lower extremity I87.312 Active confirmed 478434835 Problem Idiopathic chronic venous hy pertension of left lower extremity with ulcer I87.312 Active confirmed 791580765 Problem Deep tissue injury T14.8XXA Active confirmed 010193871 Problem Dermatitis associated with moisture L30.8 Acti ve confirmed 283903866 Problem Stage III pressure ulcer of left heel L89.623 Ac tive confirmed 193121785 Problem 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 Active confirmed 459870449 Problem Stage II pressure ulcer of sacral region L89.152 Active confirmed 024581215 Problem Chronic venous hypertension (idiopathic) with ulcer of right lower extremity I87.311 Active confirmed Problem 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 Active confirmed 874103498 Problem Stage III pressure ulcer of right heel L89.613 A ctive confirmed 387998910 Problem Stage II pressure ulcer of right buttock L89.312 Active confirmed 158467093 Problem Stage II pressure ulcer of left buttock L89.322 Active confirmed 113633871 Problem Non-pressure chronic ulcer o f other part of right lower leg with unspecified severity L97.819 Active confirmed ALLERGIES Allergen (clinical drug ingredient) Drug/Non Drug Allergy do cumented on EMR Reaction Allergy Type Onset Date Status Sulfasalazine Sulfa Antibiotics Unknown Drug Allergy Ac tive ciprofloxacin Cipro([facility] Code:[address]-04) Unknown Drug Allergy Active Penicillin (For Allergies Use Only) Unknown Drug Allerg y Active ENCOUNTERS from 1944 to 2021-07-05 Encounter Location Date Provider Diagnosis [facility] [address] [facility] [facility] [phone] [place] [address] Jun, Ene Maya Chronic venous hypertension (idiopathic) [...] Language: Question Answer Notes Languages spoken: Armenian Latter-Day: Question Answer Notes Latter-Day 21 Sikhism No confucianist beliefs that would impact health care. Alcohol [...] No Information VITAL SIGNS Weight 111 lbs Jun, Height 68 in Jun, BMI 16.88 kg/m2 Jun, Heart Rate 91 /min Jun, Respiratory Rate 20 /min Jun, Temperature 97 degrees Fahrenheit Jun, Oximetry 99 Jun, Blood pressure systolic 123 mm Hg Jun, Blood pressure diastolic 66 mm Hg Jun, MEDICATIONS Medication SIG (Take, [...] tablet Orally Twice a day Active PROCEDURES from 1944 to 2021-07-05 Procedure Date Ordered Result Body Site Medication: [...] Details 1 Week Reason: Provider Name:Tyson Burgos, 03:15:00 PM, Charlie [address], , [place], [address], Insurance Providers Payer Name Payer Address Payer Phone Insured Name Patient Relati onship to Insured Coverage Start Date Coverage End Date MEDICAID Nexavis [address] [facility] [id number] [place] MEDICARE COMPLETE UNITED HEALTHCARE [address] [address] [facility] [address] [place] self
--- OUTSIDE RECORDS SUMMARY | 2021-08-07 21:43 | CCD | Continuity of Care Document ---
Author Author Tiffany ROSE DPM Organization Unknown Address [address] [place] [address], [address] [place] [address] Phone [phone] Care Team Providers Care See Supervisor Name Role Phone Yasmine Odom M.D. [phone] Salazar Rae, Avinash RUSSELL [phone] Problems Active Problems Provider Date Pain in [...] ER Mansoor SHAH,Ole Furosemide 20mg Tablets Mansoor SHAH,Ole Immunizations Description No Information Available Vital Signs [...] Information Available Procedures Date Code Description Status 04/25/2021 50266 Debridement 6-10 Nails Electric Completed 02/14/2021 11946 Debridement 6-10 Nails Electric Completed Medical Devices Description No Information Available Encounters Description No Information Available Assessments Date Code Description Provider 04/25/2021 B35.1 Tinea unguium Luke Rose, MARGAM 04/25/2021 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
--- OUTSIDE RECORDS SUMMARY | 2021-08-07 21:43 | CCD ---
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 Active confirmed 446615129 Problem Tinea pedis 110.4 Active confirmed 9075113 improving Problem Chronic venous hypertension (idiopathic) with ulcer of left lower extremity I87.312 Active confirmed 339460951 Problem Idiopathic chronic venous hy pertension of left lower extremity with ulcer I87.312 Active confirmed 438633513 Problem Deep tissue injury T14.8XXA Active confirmed 842936685 Problem Dermatitis associated with moisture L30.8 Acti ve confirmed 694109560 Problem Stage III pressure ulcer of left heel L89.623 Ac tive confirmed 267581336 Problem 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 Active confirmed 749125949 Problem Stage II pressure ulcer of sacral region L89.152 Active confirmed 770465528 Problem Chronic venous hypertension (idiopathic) with ulcer of right lower extremity I87.311 Active confirmed Problem 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 Active confirmed 241505194 Problem Stage III pressure ulcer of right heel L89.613 A ctive confirmed 086002991 Problem Stage II pressure ulcer of right buttock L89.312 Active confirmed 164407166 Problem Stage II pressure ulcer of left buttock L89.322 Active confirmed 055336481 Problem Non-pressure chronic ulcer o f other part of right lower leg with unspecified severity L97.819 Active confirmed ALLERGIES Allergen (clinical drug ingredient) Drug/Non Drug Allergy do cumented on EMR Reaction Allergy Type Onset Date Status Sulfa (for allergy use only) Unknown Drug Allergy Active ciprofloxacin Cipro([facility] Code:[address]-55) Unknown Drug Allergy Active Penicillin (For Allergies Use Only) Unknown Drug Allerg y Active ENCOUNTERS from 1945 to 2021-05-18 Encounter Location Date Provider Diagnosis [facility] [address] [facility] [phone] [place] [address] May, Ene Maya Chronic venous hypertension (idiopathic) [...] School Language: Question Answer Notes Languages spoken: Yakut Mandaen: Question Answer Notes Mandaen 21 Shinto No shinto beliefs that would impact health [...] May, BMI 17.33 kg/m2 May, Heart Rate 72 /min May, Respiratory Rate 18 /min May, Temperature 98.4 degrees Fahrenheit May, Oximetry 98 May, Blood pressure systolic 122 mm Hg May, Blood pressure diastolic 58 mm Hg May, MEDICATIONS Medication SIG (Take, [...] Orally Once a day Aug, 18 Not-Taking Fluocinonide 0.05 % Externally Not- Taking [...] Rectal Once a day Aug, Not-Taking PROCEDURES from 1944 to 2021-05-18 Procedure Date Ordered Result Body Site Medication: 4% Lidocaine topical cream (Anecream) 30 gm N/A RESULTS No Results REASON FOR VISIT LLE Wound MEDICAL (GENERAL) HISTORY Type Description Date [...] Appt Details 1 Week Reason: Provider Name:Ene Marins, 05-19 01:30:00 PM, Charlie [address], , [place], [address], Provider Name:Ene Marins, 05-26 02:00:00 PM, Charlie LOVE, , [place], [address], Insurance Providers Payer Name Payer Address Payer Phone Insured Name Patient Relati onship to Insured Coverage Start Date Coverage End Date MEDICAID [employer] [address] [facility] [address] [place] MEDICARE COMPLETE UNITED HEALTHCARE [address] [address] [facility] [address] [place] self
--- OUTSIDE RECORDS SUMMARY | 2021-08-07 21:43 | CCD ---
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 Active confirmed 416801365 Problem Tinea pedis 110.4 Active confirmed 9122817 improving Problem Chronic venous hypertension (idiopathic) with ulcer of left lower extremity I87.312 Active confirmed 574286260 Problem Idiopathic chronic venous hy pertension of left lower extremity with ulcer I87.312 Active confirmed 653387031 Problem Deep tissue injury T14.8XXA Active confirmed 367913440 Problem Dermatitis associated with moisture L30.8 Acti ve confirmed 992615365 Problem Stage III pressure ulcer of left heel L89.623 Ac tive confirmed 856452313 Problem 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 Active confirmed 793599671 Problem Stage II pressure ulcer of sacral region L89.152 Active confirmed 111205591 Problem Chronic venous hypertension (idiopathic) with ulcer of right lower extremity I87.311 Active confirmed Problem 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 Active confirmed 854225425 Problem Stage III pressure ulcer of right heel L89.613 A ctive confirmed 503208315 Problem Stage II pressure ulcer of right buttock L89.312 Active confirmed 792415705 Problem Stage II pressure ulcer of left buttock L89.322 Active confirmed 302869593 Problem Non-pressure chronic ulcer o f other part of right lower leg with unspecified severity L97.819 Active confirmed ALLERGIES Allergen (clinical drug ingredient) Drug/Non Drug Allergy do cumented on EMR Reaction Allergy Type Onset Date Status Sulfa (for allergy use only) Unknown Drug Allergy Active ciprofloxacin Cipro([facility] Code:[address]-08) Unknown Drug Allergy Active Penicillin (For Allergies Use Only) Unknown Drug Allerg y Active ENCOUNTERS from 1945 to 2021-06-15 Encounter Location Date Provider Diagnosis [facility] [address] [facility] [phone] [place] [address] Jun, Ene Maya Chronic venous hypertension (idiopathic) [...] School Language: Question Answer Notes Languages spoken: Turkmen Mosque: Question Answer Notes Mosque 21 Worship No yazidism beliefs that would impact health care. Alcohol [...] Jun, BMI 17.33 kg/m2 Jun, Heart Rate 55 /min Jun, Respiratory Rate 16 /min Jun, Temperature 98.3 degrees Fahrenheit Jun, Oximetry 98 Jun, Blood pressure systolic 119 mm Hg Jun, Blood pressure diastolic 61 mm Hg Jun, MEDICATIONS Medication SIG (Take, Route, Frequency, Duration) Notes Start Da te End Date Status Ibuprofen 800 MG 1 tablet with food or milk as needed Ora lly Three times a day Active Omeprazole 40 MG 1 capsule Orally Once a day Aug, Not-Taking Bactrim 400-80 MG 2 tablets Orally every 12 hours for 10 days Mar, Not-Taking Diphenhydramine 1 tab-25MG Oral PRN Q6H Not-Taking Fluocinonide 0.05 % 1 application to lower leg E xternally once a day for a week, then three times weekly for 1 month Jan, Not-Taking Metoprolol Tartrate 25 MG 1 tablet with food Orally Twice a day for 30 day(s) Active Omeprazole 40mg 40gm 1 cap oral daily Not-Taking Ketoconazole 2 % 1 application to affected ar ea Externally twice a day to web spaces Not-Taking Aquaphor _ as directed Externally twice daily to dry skin f or 1 month Oct, Not-Taking Potassium 1 tab Oral 10 meq, 2 tabs daily Not- Taking Magnesium 200 MG 2 tablets with a meal Orally Once a day 0 Aug, Not-Taking Eliquis 5 MG as directed Orally Acti ve Clindamycin HCl 300 MG 1 capsule Orally every 8 hrs Not-Taking Carafate 1 GM 1 tablet on an empty stomach Orally three times daily Aug, Not-Taking Tylenol 325 MG 2 tablets Orally every 4 hrs Aug, Not-Taking Iron 325 (65 Fe) MG 1 tablet Orally Once a day for 30 day(s) Active Cefadroxil 500 mg 1 capsules Orally Twice a day Not-Taking DOK 100 MG TAKE ONE CAPSULE BY MOUTH ONCE DAILY Oral for 90 Active Potassium Chloride 10 MEQ 1 tablet with food Orally once daily Aug, Not-Taking oxyCODONE-Acetaminophen 5-325 MG 1 tablet as needed Orally twice a day Aug, Not-Taking Multiple Vitamin - 1 tablet Orally Once a day Aug, Not-Taking Disposable Enema 19-7 GM/118ML Rectal once daily Aug, Not-Taking Bisacodyl 10 MG 1 suppository as needed Rectal Once a day Aug, Not-Taking Fluocinonide 0.05 % Externally Not- Taking Isaac - 1 unit Orally twice daily 7-7-1.5g Aug, Not-Taking Sertraline HCl 25 MG 1 tablet Orally Once a day Aug, 18 Not-Taking Eucerin - Externally twice a day Aug, Not-Taking Glucerna - 180 cc Orally twice a day Aug, Not-Taking Acetominophen 325 prn 325 mg as directed orally as directed Not-Taking busPIRone HCl 5 MG 1 tablet Orally Twice a day Active diphenhydrAMINE HCl 25 mg 1 capsule as needed Orally every 6 hrs Aug, Not-Taking metFORMIN HCl 500 MG 1 tablet with meals Orally Twice a day 500mg Aug, Active Omeprazole 40 MG TAKE ONE CAPSULE BY MOUTH ONCE DAILY Oral for 30 Active Potassium Chloride ER 10 MEQ TAKE ONE TABLET BY MOUTH ONCE DAILY Oral for 30 Active Milk of Magnesia 2400 MG/10ML 5 ml Orally once daily 2017 Not-Taking Sucralfate 1 GM 1 tablet on an empty stomach Orally four times a day and at bedtime Active Benadryl Allergy 25 MG 1 tablet as needed Orally every 8 hrs Active PROCEDURES from 1944 to 2021-06-15 Procedure Date Ordered Result Body Site Medication: [...] Details 1 Week Reason: Provider Name:Ene Gonzales Francesco, 06-16 02:00:00 PM, Charlie [address], , [place], [address], Provider Name:Ene Janet Palestine, 06-30 02:00:00 PM, Charlie [address]OS[address]UEL LOVE, , [place], [address], Insurance Providers Payer Name Payer Address Payer Phone Insured Name Patient Relati onship to Insured Coverage Start Date Coverage End Date MEDICARE COMPLETE UNITED HEALTHCARE [address] [address] [facility] [phone] [place] self MEDICAID [employer] [address] [facility] [id number] [place] self
--- OUTSIDE RECORDS SUMMARY | 2021-08-07 21:45 | CCD ---
Author Author [facility] Organization [facility] Address Unknown Phone Unavailable Care Team Providers Care Pet Counselor Name Role Phone Dewayne Banerjee MD Unavailable Unavailable Dewayne Banerjee MD Unavailable Unavailable Dewayne Banerjee MD Unavailable Unavailable Dewayne Banerjee MD Unavailable Unavailable Dewayne Banerjee MD Unavailable Unavailable Dewayne Banerjee MD Unavailable Unavailable Dewayne Banerjee MD Unavailable Unavailable Dewayne Banerjee MD Unavailable Unavailable Dewayne Banerjee MD Unavailable Unavailable Dewayne Banerjee MD Unavailable Unavailable Dewayne Banerjee MD Unavailable Unavailable Dewayne Banerjee MD Unavailable Unavailable Dewayne Banerjee MD Unavailable Unavailable Dewayne Banerjee MD Unavailable Unavailable Dewayne Banerjee MD Unavailable Unavailable Dewayne Banerjee MD Unavailable Unavailable Dewayne Banerjee MD Unavailable Unavailable Dewayne Banerjee MD Unavailable Unavailable Dewayne Banerjee MD Unavailable Unavailable Dewayne Banerjee MD Unavailable Unavailable Dewayne Banerjee MD Unavailable Unavailable Dewayne Banerjee MD Unavailable Unavailable Dewayne Banerjee MD Unavailable Unavailable Dewayne Banerjee MD Unavailable Unavailable Dewayne Banerjee MD Unavailable Unavailable Dewayne Banerjee MD Unavailable Unavailable Dewayne Banerjee MD Unavailable Unavailable Dewayne Banerjee MD Unavailable Unavailable Dewayne Banerjee MD Unavailable Unavailable Dewayne Banerjee MD Unavailable Unavailable Dewayne Banerjee MD Unavailable Unavailable Dewayne Banerjee MD Unavailable Unavailable Dewayne Banerjee MD Unavailable Unavailable Dewayne Banerjee MD Unavailable Unavailable Dewayne Banerjee MD Unavailable Unavailable Dewayne Banerjee MD Unavailable Unavailable Dewayne Banerjee MD Unavailable Unavailable Dewayne Banerjee MD Unavailable Unavailable Dewayne Banerjee MD Unavailable Unavailable Dewayne Banerjee MD Unavailable Unavailable Dewayne Banerjee MD Unavailable Unavailable Dewayne Banerjee MD Unavailable Unavailable Dewayne Banerjee MD Unavailable Unavailable Dewayne Banerjee MD Unavailable Unavailable Dewayne Banerjee MD Unavailable Unavailable Dewayne Banerjee MD Unavailable Unavailable Dewayne Banerjee MD Unavailable Unavailable Dewayne Banerjee MD Unavailable Unavailable Dewayne Banerjee MD Unavailable Unavailable Dewayne Banerjee MD Unavailable Unavailable Dewayne Banerjee MD Unavailable Unavailable Dewayne Banerjee MD Unavailable Unavailable Dewayne Banerjee MD Unavailable Unavailable Dewayne Banerjee MD Unavailable Unavailable Dewayne Banerjee MD Unavailable Unavailable Dweayne Banerjee MD Unavailable Unavailable Dewayne Banerjee MD Unavailable Unavailable Dewayne Banerjee MD Unavailable Unavailable Dewayne Banerjee MD Unavailable Unavailable Dewayne Banerjee MD Unavailable Unavailable Dewayne Banerjee MD Unavailable Unavailable Dewayne Banerjee MD Unavailable Unavailable Dewayne Banerjee MD Unavailable Unavailable Dewayne Banerjee MD Unavailable Unavailable Dewayne Banerjee MD Unavailable Unavailable Dewayne Banerjee MD Unavailable Unavailable Dewayne Banerjee MD Unavailable Unavailable Dewayne Banerjee MD Unavailable Unavailable Dewayne Banerjee MD Unavailable Unavailable Dewayne Banerjee MD Unavailable Unavailable Dewayne Banerjee MD Unavailable Unavailable Dewayne Banerjee MD Unavailable Unavailable Dewayne Banerjee MD Unavailable Unavailable Dewayne Banerjee MD Unavailable Unavailable Dewayne Banerjee MD Unavailable Unavailable Dewayne Banerjee MD Unavailable Unavailable Dewayne Banerjee MD Unavailable Unavailable Dewayne Banerjee MD Unavailable Unavailable Dewayne Banerjee MD Unavailable Unavailable Dewayne Banerjee MD Unavailable Unavailable Dewayne Banerjee MD Unavailable Unavailable Dewayne Banerjee MD Unavailable Unavailable Dewayne Banerjee MD Unavailable Unavailable Dewayne Banerjee MD Unavailable Unavailable Dewayne Banerjee MD Unavailable Unavailable Dewayne Banerjee MD Unavailable Unavailable Dewayne Banerjee MD Unavailable Unavailable Dewayne Banerjee MD Unavailable Unavailable Dewayne Banerjee MD Unavailable Unavailable Dewayne Banerjee MD Unavailable Unavailable Dewayne Banerjee MD Unavailable Unavailable Dewayne Banerjee MD Unavailable Unavailable Dewayne Banerjee MD Unavailable Unavailable Dewayne Banerjee MD Unavailable Unavailable Steve, A Leatha MEDICAL OFFICE MANAGER Unavailable Unavailable Steve, A Leatha MEDICAL OFFICE MANAGER Unavailable Unavailable Steve, A Leatha MEDICAL OFFICE MANAGER Unavailable Unavailable Steve, A Leatha MEDICAL OFFICE MANAGER Unavailable Unavailable Steve, A Leatha MEDICAL OFFICE MANAGER Unavailable Unavailable Steve, A Leatha MEDICAL OFFICE MANAGER Unavailable Unavailable Steve, A Leatha MEDICAL OFFICE MANAGER Unavailable Unavailable Steve, A Leatha MEDICAL OFFICE MANAGER Unavailable Unavailable Steve, A Leatha MEDICAL OFFICE MANAGER Unavailable Unavailable Steve, A Leatha MEDICAL OFFICE MANAGER Unavailable Unavailable Steve, A Leatha MEDICAL OFFICE MANAGER Unavailable Unavailable Steve, A Leatha MEDICAL OFFICE MANAGER Unavailable Unavailable Steve, A Leatha MEDICAL OFFICE MANAGER Unavailable Unavailable Steve, A Leatha MEDICAL OFFICE MANAGER Unavailable Unavailable Steve, A Leatha MEDICAL OFFICE MANAGER Unavailable Unavailable Steve, A Leatha MEDICAL OFFICE MANAGER Unavailable Unavailable Steve, A Leatha MEDICAL OFFICE MANAGER Unavailable Unavailable Steve, A Leatha MEDICAL OFFICE MANAGER Unavailable Unavailable Steve, A Leatha MEDICAL OFFICE MANAGER Unavailable Unavailable Steve, A Leatha MEDICAL OFFICE MANAGER Unavailable Unavailable Steve, A Leatha MEDICAL OFFICE MANAGER Unavailable Unavailable Steve, A Leatha MEDICAL OFFICE MANAGER Unavailable Unavailable Steve, A Leatha MEDICAL OFFICE MANAGER Unavailable Unavailable Steve, A Leatha MEDICAL OFFICE MANAGER Unavailable Unavailable Steve, A Leatha MEDICAL OFFICE MANAGER Unavailable Unavailable Steve, A Leatha MEDICAL OFFICE MANAGER Unavailable Unavailable Steve, A Leatha MEDICAL OFFICE MANAGER Unavailable Unavailable Steve, A Leatha MEDICAL OFFICE MANAGER Unavailable Unavailable Steve, A Leatha MEDICAL OFFICE MANAGER Unavailable Unavailable Steve, A Leatha MEDICAL OFFICE MANAGER Unavailable Unavailable Steve, A Leatha MEDICAL OFFICE MANAGER Unavailable Unavailable EGNACZAK, M EMELI ASSOCIATE PROFESSOR COMPUTER SCIENCE Unavailable Unavailable EGNACZAK, M EMELI ASSOCIATE PROFESSOR COMPUTER SCIENCE Unavailable Unavailable EGNACZAK, M EMELI ASSOCIATE PROFESSOR COMPUTER SCIENCE Unavailable Unavailable EGNACZAK, M EMELI ASSOCIATE PROFESSOR COMPUTER SCIENCE Unavailable Unavailable EGNACZAK, M EMELI ASSOCIATE PROFESSOR COMPUTER SCIENCE Unavailable Unavailable EGNACZAK, M EMELI ASSOCIATE PROFESSOR COMPUTER SCIENCE Unavailable Unavailable EGNACZAK, M EMELI ASSOCIATE PROFESSOR COMPUTER SCIENCE Unavailable Unavailable EGNACZAK, M EMELI ASSOCIATE PROFESSOR COMPUTER SCIENCE Unavailable Unavailable EGNACZAK, M EMELI ASSOCIATE PROFESSOR COMPUTER SCIENCE Unavailable Unavailable EGNACZAK, M EMELI ASSOCIATE PROFESSOR COMPUTER SCIENCE Unavailable Unavailable EGNACZAK, M EMELI ASSOCIATE PROFESSOR COMPUTER SCIENCE Unavailable Unavailable MAJAK, R PEGGY DPM Unavailable Unavailable MAJAK, R PEGGY DPM Unavailable Unavailable MAJAK, R PEGGY DPM Unavailable Unavailable MAJAK, R PEGGY DPM Unavailable Unavailable MAJAK, R PEGGY DPM Unavailable Unavailable MAJAK, R PEGGY DPM Unavailable Unavailable MAJAK, R PEGGY DPM Unavailable Unavailable MAJAK, R PEGGY DPM Unavailable Unavailable MAJAK, R PEGGY DPM Unavailable Unavailable MAJAK, R PEGGY DPM Unavailable Unavailable MAJAK, R PEGGY DPM Unavailable Unavailable MAJAK, R PEGGY DPM Unavailable Unavailable MAJAK, R PEGGY DPM Unavailable Unavailable MAJAK, R PEGGY DPM Unavailable Unavailable MAJAK, R PEGGY DPM Unavailable Unavailable MAJAK, R PEGGY DPM Unavailable Unavailable MAJAK, R PEGGY DPM Unavailable Unavailable MAJAK, R PEGGY DPM Unavailable Unavailable MAJAK, R PEGGY DPM Unavailable Unavailable MAJAK, R PEGGY DPM Unavailable Unavailable MAJAK, R PEGGY DPM Unavailable Unavailable MAJAK, R PEGGY DPM Unavailable Unavailable MAJAK, R PEGGY DPM Unavailable Unavailable MAJAK, R PEGGY DPM Unavailable Unavailable MAJAK, R PEGGY DPM Unavailable Unavailable MAJAK, R PEGGY DPM Unavailable Unavailable MAJAK, R PEGGY DPM Unavailable Unavailable MAJAK, R PEGGY DPM Unavailable Unavailable MAJAK, R PEGGY DPM Unavailable Unavailable MAJAK, R PEGGY DPM Unavailable Unavailable MAJAK, R PEGGY DPM Unavailable Unavailable MAJAK, R PEGGY DPM Unavailable Unavailable MAJAK, R PEGGY DPM Unavailable Unavailable Kip Perez PA Unavailable Unavailable Kip Perez PA Unavailable Unavailable Kip Perez PA Unavailable Unavailable Kip Perez PA Unavailable Unavailable Kip Perez PA Unavailable Unavailable Kip Perez PA Unavailable Unavailable Kip Perez PA Unavailable Unavailable Kip Perez PA Unavailable Unavailable Kip Perez PA Unavailable Unavailable Kip Perez PA Unavailable Unavailable Kip Perez PA Unavailable Unavailable Kip Perez PA Unavailable Unavailable Kip Perez PA Unavailable Unavailable Perez, M Barratt PA Unavailable Unavailable Perez, M Barratt PA Unavailable Unavailable Perez, M Barratt PA Unavailable Unavailable Perez, M Barratt PA Unavailable Unavailable Perez, M Barratt PA Unavailable Unavailable Perez, M Barratt PA Unavailable Unavailable Perez, M Barratt PA Unavailable Unavailable Perez, M Barratt PA Unavailable Unavailable Perez, M Barratt PA Unavailable Unavailable Perez, M Barratt PA Unavailable Unavailable Perez, M Barratt PA Unavailable Unavailable Perez, M Barratt PA Unavailable Unavailable Perez, M Barratt PA Unavailable Unavailable Perez, M Barratt PA Unavailable Unavailable Perez, M Barratt PA Unavailable Unavailable Perez, M Barratt PA Unavailable Unavailable Re-disclosure Warning The records that you are about to access may contain information from federally-assisted alcohol or drug abuse programs. If such information is present, then the following federally mandated warning applies: This information has been disclosed to you from records protected by federal confidentiality rules (42 CFR part 2). The federal rules prohibit you from making any further disclosure of this information unless further disclosure is expressly permitted by the written consent of the person to whom it pertains or as otherwise permitted by 42 CFR part 2. A general authorization for the release of medical or other information is NOT sufficient for this purpose. The Federal rules restrict any use of the information to criminally investigate or prosecute any alcohol or drug abuse patient.The records that you are about to access may contain highly sensitive health information, the redisclosure of which is protected by Article 27-F of the [facility] Public Health law. If you continue you may have access to information: Regarding HIV / AIDS; Provided by facilities licensed or operated by the [facility] Office of Mental Health; or Provided by the [facility] Office for People With Developmental Disabilities. If such information is present, then the following [facility] mandated warning applies: This information has been disclosed to you from confidential records which are protected by state law. State law prohibits you from making any further disclosure of this information without the specific written consent of the person to whom it pertains, or as otherwise permitted by law. Any unauthorized further disclosure in violation of state law may result in a fine or [place] [facility] [place] sentence or both. A general authorization for the release of medical or other information is NOT sufficient authorization for further disc losure. Family History Family Member Name Family Member Gender Family Member Status Date o f Status Description Data Source(s) Unknown Male Problem MEDENT ([facility]) Encounters Encounter Providers Location Date Indications Data Source(s ) Unknown [address] [facility] [place] [address] 08/04/2021 12:00:00 AM EST eCW1 ([facility]) Unknown [address] [facility] [place] [address] 08/03/2021 12:00:00 AM EST eCW1 ([facility]) ([id number]) For Template Turner [address] [place] [phone] 07/26/2021 12:00:00 AM EST eCW1 ([facility]) ([id number]) For Template Turner [address] [place] [phone] 07/20/2021 12:00:00 AM EST eCW1 ([facility]) ([id number]) For Template Turner [address] [place] [phone] 07/13/2021 12:00:00 AM EST eCW1 ([facility]) Unknown [address] [facility] [address] 07/03/2021 12:00:00 AM EDT eCW1 ([facility]) ([id number]) For Template Turner [address] [place] [phone] 06/30/2021 12:00:00 AM EDT eCW1 ([facility]) Jon Banerjee MD: [address] [place] [phone], Ph. Attender: Jon Banerjee MD [facility] Medical 06/26/2021 12:00:00 AM EDT ROSEMARY ([facility]) ([id number]) For Template Turner [address] [place] [phone] 06/23/2021 12:00:00 AM EDT eCW1 ([facility]) Outpatient Attender: EMELI DONALDSON ASSOCIATE PROFESSOR COMPUTER SCIENCE [facility] 06/21/2021 12:00:00 AM EDT [facility] ([id number]) For Template Turner [address] [place] [address] 06/16/2021 12:00:00 AM EDT eCW1 ([facility]) ([id number]) For Template Turner [address] [place] [phone] 06/09/2021 12:00:00 AM EDT eCW1 ([facility]) Unknown [address] [facility] [place] [address] 06/02/2021 12:00:00 AM EDT eCW1 ([facility]) Jon Banerjee MD: [address] [place] [phone], Ph. Attender: Jon Banerjee MD [facility] Medical 06/01/2021 12:00:00 AM EDT ROSEMARY ([facility]) Jon Baenrjee MD: [address] [place] [phone], Ph. Attender: Jon Banerjee MD [facility] Medical 06/01/2021 12:00:00 AM EDT ROSEMARY ([facility]) ([id number]) For Template Turner [facility] [place] [address] 05/19/2021 12:00:00 AM EDT eCW1 ([facility]) Unknown [address] [facility] [address] 05/17/2021 12:00:00 AM EDT eCW1 ([facility]) ([id number]) For Template Turner [facility] [place] [address] 05/12/2021 12:00:00 AM EDT eCW1 ([facility]) Unknown [address] [facility] [address] 05/05/2021 12:00:00 AM EDT eCW1 ([facility]) Unknown [address] [facility], [place] [address] 04/26/2021 12:00:00 AM EDT eCW1 ([facility]) ([id number]) For Template Turner [address] [place] [phone] 04/21/2021 12:00:00 AM EDT eCW1 ([facility]) [facility] [address] [place] [address], Ph. Attender: Leatha Wilson [facility] Medical 04/20/2021 12:00:00 AM EDT ROSEMARY ([facility]) [facility] [address] [place] [address], Ph. Attender: Leatha Wilson [facility] Medical 04/20/2021 12:00:00 AM EDT ROSEMARY ([facility]) [facility] [address] [place] [address], Ph. Attender: Leatha Wilson [facility] Medical 04/20/2021 12:00:00 AM EDT ROSEMARY ([facility]) Office Visit, Est Pt., Level 2 FC [address] [place] [address] 04/14/2021 12:00:00 AM EDT eCW1 ([facility]) Unknown [address] [facility], [facility] [address] 04/14/2021 12:00:00 AM EDT eCW1 ([facility]) ([id number]) For Template Turner [address] [place] [phone] 04/07/2021 12:00:00 AM EDT eCW1 ([facility]) YESENIA RamirezP-[facility]: [address], [place] [address], Ph. Attender: Leatha Wilson [facility] Medical 03/31/2021 12:00:00 AM EDT ROSEMARY ([facility]) Leatha Wilson [facility]: [address], [place] [address], Ph. Attender: Leatha Wilson [facility] Medical 03/31/2021 12:00:00 AM EDT ROSEMARY ([facility]) Leatha Wilson [facility]: [address], [place] [address], Ph. Attender: Leatha Wilson [facility] Medical 03/31/2021 12:00:00 AM EDT ROSEMARY ([facility]) ([id number]) For Template Turner [address] [place] [address] 03/31/2021 12:00:00 AM EDT eCW1 ([facility]) Leatha Wilson [facility]: [address], [place] [address], Ph. Attender: Leatha Wilson [facility] Medical 03/31/2021 12:00:00 AM EDT ROSEMARY ([facility]) Unknown [address] [facility], [place] [address] 03/24/2021 12:00:00 AM EDT eCW1 ([facility]) Outpatient [address] [facility], [place] [address] 03/17/2021 12:00:00 AM EDT eCW1 ([facility]) Unknown [address] [facility], [place] [address] 03/16/2021 12:00:00 AM EDT eCW1 ([facility]) ([id number]) For Template Turner [address] [place] [address] 03/10/2021 12:00:00 AM EDT eCW1 ([facility]) [facility] [address], [place] [address], Ph. Attender: Leatha Wilson [facility] Medical 02/24/2021 12:00:00 AM EDT ROSEMARY ([facility]) ISABELL Ramirez: [address], [place] [address], Ph. Attender: Leatha Wilson [facility] Medical 02/24/2021 12:00:00 AM EDT ROSEMARY ([facility]) ISABELL Ramirez: [address], [place] [address], Ph. Attender: Leatha Wilson [facility] Medical 02/24/2021 12:00:00 AM EDT ROSEMARY ([facility]) ISABELL Ramirez: [address], [place] [address], Ph. Attender: Leatha Wilson [facility] Medical 02/24/2021 12:00:00 AM EDT ROSEMARY ([facility]) Outpatient [address] [facility] [address] 02/24/2021 12:00:00 AM EDT eCW1 ([facility]) [facility] [address], [place] [address], Ph. Attender: Leatha Wilson [facility] Medical 02/24/2021 12:00:00 AM EDT ROSEMARY ([facility]) ([id number]) For Template Turner [address] [place] [address] 02/17/2021 12:00:00 AM EDT eCW1 ([facility]) [facility] [address], [place] [address], Ph. Attender: Leatha Wilson [facility] Medical 02/16/2021 12:00:00 AM EDT ROSEMARY ([facility]) ISABELL Ramirez: [address], [place] [address], Ph. Attender: Leatha Wilson [facility] Medical 02/16/2021 12:00:00 AM EDT ROSEMARY ([facility]) YESENIA RamirezPAustin: [address], [place] [address], Ph. Attender: Leatha Wilson [facility] Medical 02/16/2021 12:00:00 AM EDT THOMSON ([facility]) ISABELL Ramirez: [address], [place] [address], Ph. Attender: Leatha Wilson [facility] Medical 02/16/2021 12:00:00 AM EDT ROSEMARY ([facility]) ISABELL Ramirez: [address], [place] [address], Ph. Attender: Leatha Wilson [facility] Medical 02/16/2021 12:00:00 AM EDT ROSEMARY ([facility]) ISABELL Ramirez: [address], [place] [address], Ph. Attender: Leatha Wilson [facility] Medical 02/16/2021 12:00:00 AM EDT ROSEMARY ([facility]) Unknown [address] [facility] [address] 02/03/2021 12:00:00 AM EDT eCW1 ([facility]) ([id number]) For Template Turner [address] [place] [address] 01/27/2021 12:00:00 AM EDT eCW1 ([facility]) ([id number]) For Template Turner [address] [place] [address] 01/19/2021 12:00:00 AM EDT eCW1 ([facility]) ([id number]) For Template Turner [address] [place] [phone] 01/12/2021 12:00:00 AM EDT eCW1 ([facility]) ([id number]) For Template Turner [address] [place] [address] 01/06/2021 12:00:00 AM EDT eCW1 ([facility]) ([id number]) For Template Turner [address] [place] [address] 12/29/2020 12:00:00 AM EDT eCW1 ([facility]) ([id number]) For Template Turner [address] [place] [address] 12/23/2020 12:00:00 AM EDT eCW1 ([facility]) Outpatient Attender: PEGGY ROSE [facility] Office 12/01 02:45:00 PM EDT MEDENT ([facility] ([id number]) For Template Turner [address] [place], [place] [address] 12/09/2020 12:00:00 AM EDT eCW1 ([facility]) ([id number]) For Template Turner [address] [place] [address] 12/02/2020 12:00:00 AM EDT eCW1 ([facility]) ([id number]) For Template Turner [address] [place] [address] 11/23/2020 12:00:00 AM EDT eCW1 ([facility]) ([id number]) For Template Turner [address] [place] [address] 11/16/2020 12:00:00 AM EDT eCW1 ([facility]) Outpatient [address] [facility] [place] [address] 11/08/2020 12:00:00 AM EST eCW1 ([facility]) Outpatient [address] [facility] [place] [address] 11/01/2020 12:00:00 AM EST eCW1 ([facility]) Unknown [address] [facility] [place] [address] 10/26/2020 12:00:00 AM EST eCW1 ([facility]) Unknown [address] [facility] [place] [address] 10/25/2020 12:00:00 AM EST eCW1 ([facility]) Unknown [address] [facility] [place] [address] 10/24/2020 12:00:00 AM EST eCW1 ([facility]) Outpatient [address] [facility] [place] [address] 10/17/2020 12:00:00 AM EST eCW1 ([facility]) Unknown [address] [facility] [address] 10/14/2020 12:00:00 AM EST eCW1 ([facility]) Unknown [address] [facility] [address] 10/11/2020 12:00:00 AM EST eCW1 ([facility]) ([id number]) For Template Turner [facility] [place] [address] 10/07/2020 12:00:00 AM EST eCW1 ([facility]) ([id number]) For Template Turner [facility] [place] [address] 09/30/2020 12:00:00 AM EST eCW1 ([facility]) ([id number]) For Template Turner [address] [place] [address] 09/23/2020 12:00:00 AM EST eCW1 ([facility]) Outpatient [facility] [address] 09/14/2020 12:00:00 AM EST eCW1 ([facility]) Outpatient [facility] [address] 08/24/2020 12:00:00 AM EST eCW1 ([facility]) ([id number]) For Template Turner [facility] [place] [address] 08/17/2020 12:00:00 AM EST eCW1 ([facility]) Unknown [facility] [address] 08/16/2020 12:00:00 AM EST eCW1 ([facility]) ([id number]) For Template Turner [facility] [place] [address] 08/11/2020 12:00:00 AM EST eCW1 ([facility]) Outpatient Attender: Valente [facility] 01:45:00 PM EST MEDENT ([facility]) Unknown [address] [facility] [address] 08/08/2020 12:00:00 AM EST eCW1 ([facility]) Unknown [address] [facility] [address] 08/05/2020 12:00:00 AM EST eCW1 ([facility] [facility] [address] [facility] [id number] 08/03/2020 12:00:00 AM EST eCW1 ([facility]) ([id number]) For Template Turner [address] [place] [address] 08/03/2020 12:00:00 AM EST eCW1 ([facility]) Unknown [address] [facility] [place] [address] 08/02/2020 12:00:00 AM EST eCW1 ([facility]) Outpatient [address] [facility] [id number] 07/25/2020 12:00:00 AM EST eCW1 ([facility]) Outpatient [address] [facility] [id number] 07/15/2020 12:00:00 AM EST eCW1 ([facility]) (WND STRTCH) Stretcher Required Patients [address] [place] [address] 07/08/2020 12:00:00 AM EST eCW1 ([facility]) Unknown [address] [facility] [id number] 07/08/2020 12:00:00 AM EST eCW1 ([facility]) Unknown [address] [facility] [id number] 07/04/2020 12:00:00 AM EST eCW1 ([facility]) (WND STRTCH) Stretcher Required Patients [address] [place] [address] 07/01/2020 12:00:00 AM EDT eCW1 ([facility]) Outpatient [address] [facility] [id number] 06/28/2020 12:00:00 AM EDT eCW1 ([facility]) Unknown [address] [facility] [id number] 06/27/2020 12:00:00 AM EDT eCW1 ([facility]) [place] [address] [facility] [place] [address] 06/24/2020 12:00:00 AM EDT eCW1 ([facility]) ([id number]) For Template Turner [address] [place] [address] 06/09/2020 12:00:00 AM EDT eCW1 ([facility]) Unknown [address] [facility] [place] [address] 06/08/2020 12:00:00 AM EDT eCW1 ([facility]) Immunizations Vaccine Date Status Description Data Source(s) COVID-19, mRNA, LNP-S, PF, 100 mcg/0.5 mL dose 02/02/2021 12 :00:00 AM EDT completed 02/02/2021 [facility] ([facility]) COVID-19, mRNA, LNP-S, PF, 100 mcg/0.5 mL dose 02/02/2021 12 :00:00 AM EDT completed 02/02/2021 [facility] ([facility]) COVID-19, mRNA, LNP-S, PF, 100 mcg/0.5 mL dose 02/02/2021 12 :00:00 AM EDT completed 02/02/2021 [facility] ([facility]) COVID-19, mRNA, LNP-S, PF, 100 mcg/0.5 mL dose 02/02/2021 12 :00:00 AM EDT completed 02/02/2021 [facility] ([facility]) COVID-19, mRNA, LNP-S, PF, 100 mcg/0.5 mL dose 02/02/2021 12 :00:00 AM EDT completed 02/02/2021 [facility] ([facility]) COVID-19, mRNA, LNP-S, PF, 100 mcg/0.5 mL dose 02/02/2021 12 :00:00 AM EDT completed 02/02/2021 [facility] ([facility]) COVID-19 VACCINE Moderna 02/02/2021 12:00:00 AM EDT completed [place]IS Vaccine Series Complete: YESThis Data wa s Submitted to [facility] Via [employer]. COVID-19, mRNA, LNP-S, PF, 100 mcg/0.5 mL dose 01/05/2021 12 :00:00 AM EDT completed 01/05/2021 [facility] ([facility]) COVID-19, mRNA, LNP-S, PF, 100 mcg/0.5 mL dose 01/05/2021 12 :00:00 AM EDT completed 01/05/2021 [facility] ([facility]) COVID-19, mRNA, LNP-S, PF, 100 mcg/0.5 mL dose 01/05/2021 12 :00:00 AM EDT completed 01/05/2021 [facility] ([facility]) COVID-19, mRNA, LNP-S, PF, 100 mcg/0.5 mL dose 01/05/2021 12 :00:00 AM EDT completed 01/05/2021 [facility] ([facility]) COVID-19, mRNA, LNP-S, PF, 100 mcg/0.5 mL dose 01/05/2021 12 :00:00 AM EDT completed 01/05/2021 [facility] ([facility]) COVID-19, mRNA, LNP-S, PF, 100 mcg/0.5 mL dose 01/05/2021 12 :00:00 AM EDT completed 01/05/2021 [facility] ([facility]) COVID-19 VACCINE Moderna 01/05/2021 12:00:00 AM EDT completed [facility]SI Vaccine Series Complete: NOThis Data was Submitted to [facility] Via [employer]. influenza, recombinant, quadrIvalent,injectable, prese rvative free 06/09/2020 01:10:00 PM EDT completed eCW1 (Replaced by [facility]) influenza, recombinant, quadrIvalent,injectable, prese rvative free 06/09/2020 01:10:00 PM EDT completed eCW1 (Replaced by [facility]) influenza, recombinant, quadrIvalent,injectable, prese rvative free 06/09/2020 01:10:00 PM EDT completed eCW1 (Replaced by [facility]) influenza, recombinant, quadrIvalent,injectable, prese rvative free 06/09/2020 01:10:00 PM EDT completed eCW1 (Replaced by [facility]) influenza, recombinant, quadrIvalent,injectable, prese rvative free 06/09/2020 01:10:00 PM EDT completed eCW1 (Replaced by [facility]) influenza, recombinant, quadrIvalent,injectable, prese rvative free 06/09/2020 01:10:00 PM EDT completed eCW1 (Replaced by [facility]) influenza, recombinant, quadrIvalent,injectable, prese rvative free 06/09/2020 01:10:00 PM EDT completed eCW1 (Replaced by [facility]) influenza, recombinant, quadrIvalent,injectable, prese rvative free 06/09/2020 01:10:00 PM EDT completed eCW1 (Replaced by [facility]) influenza, recombinant, quadrIvalent,injectable, prese rvative free 06/09/2020 01:10:00 PM EDT completed eCW1 (Replaced by [facility]) influenza, recombinant, quadrIvalent,injectable, prese rvative free 06/09/2020 01:10:00 PM EDT completed eCW1 (Replaced by [facility]) influenza, recombinant, quadrIvalent,injectable, prese rvative free 06/09/2020 01:10:00 PM EDT completed eCW1 (Replaced by [facility]) influenza, recombinant, quadrIvalent,injectable, prese rvative free 06/09/2020 01:10:00 PM EDT completed eCW1 (Replaced by [facility]) influenza, recombinant, quadrIvalent,injectable, prese rvative free 06/09/2020 01:10:00 PM EDT completed eCW1 (Replaced by [facility]) influenza, recombinant, quadrIvalent,injectable, prese rvative free 06/09/2020 01:10:00 PM EDT completed eCW1 (Replaced by [facility]) influenza, recombinant, quadrIvalent,injectable, prese rvative free 06/09/2020 01:10:00 PM EDT completed eCW1 (Replaced by [facility]) influenza, recombinant, quadrIvalent,injectable, prese rvative free 06/09/2020 01:10:00 PM EDT completed eCW1 (Replaced by [facility]) influenza, recombinant, quadrIvalent,injectable, prese rvative free 06/09/2020 01:10:00 PM EDT completed eCW1 (Replaced by [facility]) influenza, recombinant, quadrIvalent,injectable, prese rvative free 06/09/2020 01:10:00 PM EDT completed eCW1 (Replaced by [facility]) influenza, recombinant, quadrIvalent,injectable, prese rvative free 06/09/2020 01:10:00 PM EDT completed eCW1 (Replaced by [facility]) influenza, recombinant, quadrIvalent,injectable, prese rvative free 06/09/2020 01:10:00 PM EDT completed eCW1 (Replaced by [facility]) influenza, recombinant, quadrIvalent,injectable, prese rvative free 06/09/2020 01:10:00 PM EDT completed eCW1 (Replaced by [facility]) influenza, recombinant, quadrIvalent,injectable, prese rvative free 06/09/2020 01:10:00 PM EDT completed eCW1 (Replaced by [facility]) influenza, recombinant, quadrIvalent,injectable, prese rvative free 06/09/2020 01:10:00 PM EDT completed eCW1 (Replaced by [facility]) influenza, recombinant, quadrIvalent,injectable, prese rvative free 06/09/2020 01:10:00 PM EDT completed eCW1 (Replaced by [facility]) influenza, recombinant, quadrIvalent,injectable, prese rvative free 06/09/2020 01:10:00 PM EDT completed eCW1 (Replaced by [facility]) influenza, recombinant, quadrIvalent,injectable, prese rvative free 06/09/2020 01:10:00 PM EDT completed eCW1 (Replaced by [facility]) influenza, recombinant, quadrIvalent,injectable, prese rvative free 06/09/2020 01:10:00 PM EDT completed eCW1 (Replaced by [facility]) influenza, recombinant, quadrIvalent,injectable, prese rvative free 06/09/2020 01:10:00 PM EDT completed eCW1 (Replaced by [facility]) influenza, recombinant, quadrIvalent,injectable, prese rvative free 06/09/2020 01:10:00 PM EDT completed eCW1 (Replaced by [facility]) influenza, recombinant, quadrIvalent,injectable, prese rvative free 06/09/2020 01:10:00 PM EDT completed eCW1 (Replaced by [facility]) influenza, recombinant, quadrIvalent,injectable, prese rvative free 06/09/2020 01:10:00 PM EDT completed eCW1 (Replaced by [facility]) influenza, recombinant, quadrIvalent,injectable, prese rvative free 06/09/2020 01:10:00 PM EDT completed eCW1 (Replaced by [facility]) influenza, recombinant, quadrIvalent,injectable, prese rvative free 06/09/2020 01:10:00 PM EDT completed eCW1 (Replaced by [facility]) influenza, recombinant, quadrIvalent,injectable, prese rvative free 06/09/2020 01:10:00 PM EDT completed eCW1 (Replaced by [facility]) influenza, recombinant, quadrIvalent,injectable, prese rvative free 06/09/2020 01:10:00 PM EDT completed eCW1 (Replaced by [facility]) influenza, recombinant, quadrIvalent,injectable, prese rvative free 06/09/2020 01:10:00 PM EDT completed eCW1 (Replaced by [facility]) influenza, recombinant, quadrIvalent,injectable, prese rvative free 06/09/2020 01:10:00 PM EDT completed eCW1 (Replaced by [facility]) influenza, recombinant, quadrIvalent,injectable, prese rvative free 06/09/2020 01:10:00 PM EDT completed eCW1 (Replaced by [facility]) influenza, recombinant, quadrIvalent,injectable, prese rvative free 06/09/2020 01:10:00 PM EDT completed eCW1 (Replaced by [facility]) influenza, recombinant, quadrIvalent,injectable, prese rvative free 06/09/2020 01:10:00 PM EDT completed eCW1 (Replaced by [facility]) influenza, recombinant, quadrIvalent,injectable, prese rvative free 06/09/2020 01:10:00 PM EDT completed eCW1 (Replaced by [facility]) influenza, recombinant, quadrIvalent,injectable, prese rvative free 06/09/2020 01:10:00 PM EDT completed eCW1 (Replaced by [facility]) influenza, recombinant, quadrIvalent,injectable, prese rvative free 06/09/2020 01:10:00 PM EDT completed eCW1 (Replaced by [facility]) influenza, recombinant, quadrIvalent,injectable, prese rvative free 06/09/2020 01:10:00 PM EDT completed eCW1 (Replaced by [facility]) influenza, recombinant, quadrIvalent,injectable, prese rvative free 06/09/2020 01:10:00 PM EDT completed eCW1 (Replaced by [facility]) influenza, recombinant, quadrIvalent,injectable, prese rvative free 06/09/2020 01:10:00 PM EDT completed eCW1 (Replaced by [facility]) influenza, recombinant, quadrIvalent,injectable, prese rvative free 06/09/2020 01:10:00 PM EDT completed eCW1 (Replaced by [facility]) influenza, recombinant, quadrIvalent,injectable, prese rvative free 06/09/2020 01:10:00 PM EDT completed eCW1 (Replaced by [facility]) influenza, recombinant, quadrIvalent,injectable, prese rvative free 06/09/2020 01:10:00 PM EDT completed eCW1 (Replaced by [facility]) influenza, recombinant, quadrIvalent,injectable, prese rvative free 06/09/2020 01:10:00 PM EDT completed eCW1 (Replaced by [facility]) influenza, recombinant, quadrIvalent,injectable, prese rvative free 06/09/2020 01:10:00 PM EDT completed eCW1 (Replaced by [facility]) influenza, recombinant, quadrIvalent,injectable, prese rvative free 06/09/2020 01:10:00 PM EDT completed eCW1 (Replaced by [facility]) influenza, recombinant, quadrIvalent,injectable, prese rvative free 06/09/2020 01:10:00 PM EDT completed eCW1 (Replaced by [facility]) influenza, recombinant, quadrIvalent,injectable, prese rvative free 06/09/2020 01:10:00 PM EDT completed eCW1 (Replaced by [facility]) influenza, recombinant, quadrIvalent,injectable, prese rvative free 06/09/2020 01:10:00 PM EDT completed eCW1 (Replaced by [facility]) influenza, recombinant, quadrIvalent,injectable, prese rvative free 06/09/2020 01:10:00 PM EDT completed eCW1 (Replaced by [facility]) influenza, recombinant, quadrIvalent,injectable, prese rvative free 06/09/2020 01:10:00 PM EDT completed eCW1 (Replaced by [facility]) influenza, recombinant, quadrIvalent,injectable, prese rvative free 06/09/2020 01:10:00 PM EDT completed eCW1 (Replaced by [facility]) influenza, recombinant, quadrIvalent,injectable, prese rvative free 06/09/2020 01:10:00 PM EDT completed eCW1 (Replaced by [facility]) influenza, recombinant, quadrIvalent,injectable, prese rvative free 06/09/2020 01:10:00 PM EDT completed eCW1 (Replaced by [facility]) influenza, recombinant, quadrIvalent,injectable, prese rvative free 06/09/2020 01:10:00 PM EDT completed eCW1 (Replaced by [facility]) influenza, recombinant, quadrIvalent,injectable, prese rvative free 06/09/2020 01:10:00 PM EDT completed eCW1 (Replaced by [facility]) influenza, recombinant, quadrIvalent,injectable, prese rvative free 06/09/2020 01:10:00 PM EDT completed eCW1 (Replaced by [facility]) influenza, recombinant, quadrIvalent,injectable, prese rvative free 06/09/2020 01:10:00 PM EDT completed eCW1 (Replaced by [facility]) influenza, recombinant, quadrIvalent,injectable, prese rvative free 06/09/2020 01:10:00 PM EDT completed eCW1 (Replaced by [facility]) influenza, recombinant, quadrIvalent,injectable, prese rvative free 06/09/2020 01:10:00 PM EDT completed eCW1 (Replaced by [facility]) influenza, recombinant, quadrIvalent,injectable, prese rvative free 06/09/2020 01:10:00 PM EDT completed eCW1 (Replaced by [facility]) influenza, recombinant, quadrIvalent,injectable, prese rvative free 06/09/2020 01:10:00 PM EDT completed eCW1 (Replaced by [facility]) influenza, recombinant, quadrIvalent,injectable, prese rvative free 06/09/2020 01:10:00 PM EDT completed eCW1 (Replaced by [facility]) influenza, recombinant, quadrIvalent,injectable, prese rvative free 06/09/2020 01:10:00 PM EDT completed eCW1 (Replaced by [facility]) influenza, recombinant, quadrIvalent,injectable, prese rvative free 06/09/2020 01:10:00 PM EDT completed eCW1 (Replaced by [facility]) Medications Medication Brand Name Start Date Product Form Dose Route Admi nistrative Instructions Pharmacy Instructions Status Indications Reaction Description Data Source(s) NITROFURANTOIN, MACROCRYSTALS 25 MG / Ni trofurantoin, Monohydrate 75 MG Oral Capsule nitrofurantoin monohydrate/macrocrystals 100 mg capsule TAKE ONE CAPSULE BY MOUTH TWICE DAILY nitrofurantoin monohydrate/macrocrystals 100 mg capsule TAKE ONE CAPSULE BY MOUTH TWICE DAILY completed nitrofurantoin, macrocrystals 25 MG / nitrofurantoin, monohydrate 75 MG Oral Capsule [facility] ([facility]) Mupirocin 0.02 MG/MG Topical Ointment mu pirocin 2 % topical ointment APPLY TO RIGHT ON THE LEG ONCE DAILY mupirocin 2 % topical ointment APPLY TO RIGHT ON THE LEG ONCE DAILY completed mupiroc in 0.02 MG/MG Topical Ointment [facility] ([facility]) Cephalexin 500 MG Oral Capsule cephalexi n 500 mg capsule TAKE ONE CAPSULE BY MOUTH FOUR TIMES DAILY cephalexin 500 mg capsule TAKE ONE CAPSU LE BY MOUTH FOUR TIMES DAILY completed cephalexin 500 MG Oral Capsule [facility] ([facility]) Mupirocin 0.02 MG/MG Topical Ointment mu pirocin 2 % topical ointment APPLY TO RIGHT ON THE LEG ONCE DAILY mupirocin 2 % topical ointment APPLY TO RIGHT ON THE LEG ONCE DAILY completed mupiroc in 0.02 MG/MG Topical Ointment [facility] ([facility]) Furosemide 20 MG Oral Tablet furosemide 20 mg tablet TAKE ONE TABLET BY MOUTH ONCE DAILY furosemide 20 mg tablet TAKE ONE TABLET BY MOUTH ONCE DAILY completed furosemide 20 MG Oral Tab let [facility] ([facility]) Mupirocin 0.02 MG/MG Topical Ointment mu pirocin 2 % topical ointment APPLY TO RIGHT ON THE LEG ONCE DAILY mupirocin 2 % topical ointment APPLY TO RIGHT ON THE LEG ONCE DAILY completed mupiroc in 0.02 MG/MG Topical Ointment [facility] ([facility]) Furosemide 20 MG Oral Tablet furosemide 20 mg tablet TAKE ONE TABLET BY MOUTH ONCE DAILY furosemide 20 mg tablet TAKE ONE TABLET BY MOUTH ONCE DAILY completed furosemide 20 MG Oral Tab let [facility] ([facility]) Ibuprofen 600 MG Oral Tablet ibuprofen 6 00 mg tablet TAKE ONE TABLET BY MOUTH THREE TIMES DAILY FOR 10 DAYS ibuprofen 600 mg tablet TAKE ONE TABLET BY MOUTH THREE TIMES DAILY FOR 10 DAYS complete d ibuprofen 600 MG Oral Tablet [facility] ([facility]) Furosemide 20 MG Oral Tablet furosemide 20 mg tablet TAKE ONE TABLET BY MOUTH ONCE DAILY furosemide 20 mg tablet TAKE ONE TABLET BY MOUTH ONCE DAILY completed furosemide 20 MG Oral Tab let [facility] ([facility]) Ibuprofen 600 MG Oral Tablet ibuprofen 6 00 mg tablet TAKE ONE TABLET BY MOUTH THREE TIMES DAILY FOR 10 DAYS ibuprofen 600 mg tablet TAKE ONE TABLET BY MOUTH THREE TIMES DAILY FOR 10 DAYS complete d ibuprofen 600 MG Oral Tablet [facility] ([facility]) Fluconazole 150 MG Oral Tablet fluconazo le 150 mg tablet TAKE ONE TABLET BY MOUTH ONCE A WEEK fluconazole 150 mg tablet TAKE ONE TABLE T BY MOUTH ONCE A WEEK completed fluconazole 150 MG Oral Tablet [facility] ([facility]) Fluconazole 150 MG Oral Tablet fluconazo le 150 mg tablet TAKE ONE TABLET BY MOUTH ONCE A WEEK fluconazole 150 mg tablet TAKE ONE TABLE T BY MOUTH ONCE A WEEK completed fluconazole 150 MG Oral Tablet [facility] ([facility]) Cephalexin 500 MG Oral Capsule cephalexi n 500 mg capsule TAKE ONE CAPSULE BY MOUTH FOUR TIMES DAILY cephalexin 500 mg capsule TAKE ONE CAPSU LE BY MOUTH FOUR TIMES DAILY completed cephalexin 500 MG Oral Capsule [facility] ([facility]) Cephalexin 500 MG Oral Capsule cephalexi n 500 mg capsule TAKE ONE CAPSULE BY MOUTH FOUR TIMES DAILY cephalexin 500 mg capsule TAKE ONE CAPSU LE BY MOUTH FOUR TIMES DAILY completed cephalexin 500 MG Oral Capsule [facility] ([facility]) Cephalexin 500 MG Oral Capsule cephalexi n 500 mg capsule TAKE ONE CAPSULE BY MOUTH FOUR TIMES DAILY cephalexin 500 mg capsule TAKE ONE CAPSU LE BY MOUTH FOUR TIMES DAILY completed cephalexin 500 MG Oral Capsule [facility] ([facility]) NITROFURANTOIN, MACROCRYSTALS 25 MG / Ni trofurantoin, Monohydrate 75 MG Oral Capsule nitrofurantoin monohydrate/macrocrystals 100 mg capsule TAKE ONE CAPSULE BY MOUTH TWICE DAILY nitrofurantoin monohydrate/macrocrystals 100 mg capsule TAKE ONE CAPSULE BY MOUTH TWICE DAILY completed nitrofurantoin, macrocrystals 25 MG / nitrofurantoin, monohydrate 75 MG Oral Capsule [facility] ([facility]) NITROFURANTOIN, MACROCRYSTALS 25 MG / Ni trofurantoin, Monohydrate 75 MG Oral Capsule nitrofurantoin monohydrate/macrocrystals 100 mg capsule TAKE ONE CAPSULE BY MOUTH TWICE DAILY nitrofurantoin monohydrate/macrocrystals 100 mg capsule TAKE ONE CAPSULE BY MOUTH TWICE DAILY completed nitrofurantoin, macrocrystals 25 MG / nitrofurantoin, monohydrate 75 MG Oral Capsule [facility] ([facility]) Mupirocin 0.02 MG/MG Topical Ointment mu pirocin 2 % topical ointment APPLY TO RIGHT ON THE LEG ONCE DAILY mupirocin 2 % topical ointment APPLY TO RIGHT ON THE LEG ONCE DAILY completed mupiroc in 0.02 MG/MG Topical Ointment [facility] ([facility]) Ibuprofen 600 MG Oral Tablet ibuprofen 6 00 mg tablet TAKE ONE TABLET BY MOUTH THREE TIMES DAILY FOR 10 DAYS ibuprofen 600 mg tablet TAKE ONE TABLET BY MOUTH THREE TIMES DAILY FOR 10 DAYS complete d ibuprofen 600 MG Oral Tablet [facility] ([facility]) NITROFURANTOIN, MACROCRYSTALS 25 MG / Ni trofurantoin, Monohydrate 75 MG Oral Capsule nitrofurantoin monohydrate/macrocrystals 100 mg capsule TAKE ONE CAPSULE BY MOUTH TWICE DAILY nitrofurantoin monohydrate/macrocrystals 100 mg capsule TAKE ONE CAPSULE BY MOUTH TWICE DAILY completed nitrofurantoin, macrocrystals 25 MG / nitrofurantoin, monohydrate 75 MG Oral Capsule [facility] ([facility]) Fluconazole 150 MG Oral Tablet fluconazo le 150 mg tablet TAKE ONE TABLET BY MOUTH ONCE A WEEK fluconazole 150 mg tablet TAKE ONE TABLE T BY MOUTH ONCE A WEEK completed fluconazole 150 MG Oral Tablet [facility] ([facility]) Ibuprofen 600 MG Oral Tablet ibuprofen 6 00 mg tablet TAKE ONE TABLET BY MOUTH THREE TIMES DAILY FOR 10 DAYS ibuprofen 600 mg tablet TAKE ONE TABLET BY MOUTH THREE TIMES DAILY FOR 10 DAYS complete d ibuprofen 600 MG Oral Tablet [facility]) Fluconazole 150 MG Oral Tablet fluconazo le 150 mg tablet TAKE ONE TABLET BY MOUTH ONCE A WEEK fluconazole 150 mg tablet TAKE ONE TABLE T BY MOUTH ONCE A WEEK completed fluconazole 150 MG Oral Tablet [facility] ([facility]) Fluconazole 150 MG Oral Tablet fluconazo le 150 mg tablet TAKE ONE TABLET BY MOUTH ONCE A WEEK fluconazole 150 mg tablet TAKE ONE TABLE T BY MOUTH ONCE A WEEK completed fluconazole 150 MG Oral Tablet [facility]) Mupirocin 0.02 MG/MG Topical Ointment mu pirocin 2 % topical ointment APPLY TO RIGHT ON THE LEG ONCE DAILY mupirocin 2 % topical ointment APPLY TO RIGHT ON THE LEG ONCE DAILY completed mupiroc in 0.02 MG/MG Topical Ointment [facility]) Furosemide 20 MG Oral Tablet furosemide 20 mg tablet TAKE ONE TABLET BY MOUTH ONCE DAILY furosemide 20 mg tablet TAKE ONE TABLET BY MOUTH ONCE DAILY completed furosemide 20 MG Oral Tab let [facility]) Fluconazole 150 MG Oral Tablet fluconazo le 150 mg tablet TAKE ONE TABLET BY MOUTH ONCE A WEEK fluconazole 150 mg tablet TAKE ONE TABLE T BY MOUTH ONCE A WEEK completed fluconazole 150 MG Oral Tablet [facility]) Cephalexin 500 MG Oral Capsule cephalexi n 500 mg capsule TAKE ONE CAPSULE BY MOUTH FOUR TIMES DAILY cephalexin 500 mg capsule TAKE ONE CAPSU LE BY MOUTH FOUR TIMES DAILY completed cephalexin 500 MG Oral Capsule [facility] ([facility]) NITROFURANTOIN, MACROCRYSTALS 25 MG / Ni trofurantoin, Monohydrate 75 MG Oral Capsule nitrofurantoin monohydrate/macrocrystals 100 mg capsule TAKE ONE CAPSULE BY MOUTH TWICE DAILY nitrofurantoin monohydrate/macrocrystals 100 mg capsule TAKE ONE CAPSULE BY MOUTH TWICE DAILY completed nitrofurantoin, macrocrystals 25 MG / nitrofurantoin, monohydrate 75 MG Oral Capsule [facility] ([facility]) Furosemide 20 MG Oral Tablet furosemide 20 mg tablet TAKE ONE TABLET BY MOUTH ONCE DAILY furosemide 20 mg tablet TAKE ONE TABLET BY MOUTH ONCE DAILY completed furosemide 20 MG Oral Tab let [facility] ([facility]) Mupirocin 0.02 MG/MG Topical Ointment mu pirocin 2 % topical ointment APPLY TO RIGHT ON THE LEG ONCE DAILY mupirocin 2 % topical ointment APPLY TO RIGHT ON THE LEG ONCE DAILY completed mupiroc in 0.02 MG/MG Topical Ointment [facility] ([facility]) Cephalexin 500 MG Oral Capsule cephalexi n 500 mg capsule TAKE ONE CAPSULE BY MOUTH FOUR TIMES DAILY cephalexin 500 mg capsule TAKE ONE CAPSU LE BY MOUTH FOUR TIMES DAILY completed cephalexin 500 MG Oral Capsule [facility] ([facility]) NITROFURANTOIN, MACROCRYSTALS 25 MG / Ni trofurantoin, Monohydrate 75 MG Oral Capsule nitrofurantoin monohydrate/macrocrystals 100 mg capsule TAKE ONE CAPSULE BY MOUTH TWICE DAILY nitrofurantoin monohydrate/macrocrystals 100 mg capsule TAKE ONE CAPSULE BY MOUTH TWICE DAILY completed nitrofurantoin, macrocrystals 25 MG / nitrofurantoin, monohydrate 75 MG Oral Capsule [facility] ([facility]) Ibuprofen 600 MG Oral Tablet ibuprofen 6 00 mg tablet TAKE ONE TABLET BY MOUTH THREE TIMES DAILY FOR 10 DAYS ibuprofen 600 mg tablet TAKE ONE TABLET BY MOUTH THREE TIMES DAILY FOR 10 DAYS complete d ibuprofen 600 MG Oral Tablet [facility] er) Furosemide 20 MG Oral Tablet furosemide 20 mg tablet TAKE ONE TABLET BY MOUTH ONCE DAILY furosemide 20 mg tablet TAKE ONE TABLET BY MOUTH ONCE DAILY completed furosemide 20 MG Oral Tab let [facility] ([facility]) Ibuprofen 600 MG Oral Tablet ibuprofen 6 00 mg tablet TAKE ONE TABLET BY MOUTH THREE TIMES DAILY FOR 10 DAYS ibuprofen 600 mg tablet TAKE ONE TABLET BY MOUTH THREE TIMES DAILY FOR 10 DAYS complete d ibuprofen 600 MG Oral Tablet [facility] ([facility]) Insurance Providers Payer name Policy type / Coverage type Policy ID Covered alliance party ID Covered alliance party's relationship to turner Policy Turner Plan Information BCBS [facility] [id number] SP [id number] BCBS [facility] 303/803 [id number] SP [id number] BCBS [facility] 303/803 [id number] SP [id number] [place]BS [place] 332/834 [id number] SP [id number] [place] [id number] Self MEDICARE [id number] SP [id number] A MEDICARE [id number] SP [id number] A [id number] A MEDICARE COMPLETE [id number] SP [id number] MEDICARE COMPLETE [id number] SP [id number] MEDICAID [id number] SP [id number] MEDICARE COMPLETE [id number] SP [id number] [facility] MEDICARE [id number] [facility] MEDICARE [id number] Beti [id number] 34 ANS-Medicare Part B [id number] MEDICAID [id number] SP [id number] ANS-Medicare Part B [id number] [facility]-Medicaid [id number] ANSI-Commercial [id number]-[id number] ANS-Medicare Part B [id number] ANSI-Medicare Part B [id number]-[id number] ANSI-Commercial [id number]-54w7-535o-[id number] 13917143-5b3z-79v4-076m-[id number] ANSI-Medicare Part B [id number] ANSI-Medicaid [id number] ANSI-Medicaid [id number] ANSI-Commercial [id number]-28h2-77lz-125f-udft484x63i0 dnk121bh-69k3-90dq-924m-mycm364a57f6 ANSI-Medicare Part B [id number] ANSI-Medicare Part B [id number] ANSI-Medicare Part B [id number]-h8z4-[id number] ANSI-Medicare Part B [id number] ANSI-Medicaid [id number] ANSI-Commercial [id number]-iyf5-788k-b16a-029ve73d5o34 s99b385c-lqq1-147s-d95h-411qp39o5q86 ANSI-Medicare Part B [id number]-7gu9-[id number] [facility] [id number] ANSI-Commercial 81h6w876-hu8v-2pl8-4u7z-143e1k03d011 90y8t757-tt9m-4ly2-3o8l-146b2s10f336 ANSI-Medicare Part B [id number] ANSI-Medicaid [id number] ANSI-Medicare Part B [id number]-[id number] ANSI-Medicare Part B [id number] ANSI-Commercial 5a0t08vy-8sf2-6671-1lr7-1k2517879hk1 1e2z98uc-3yp4-1725-3pr0-5c1726330uz4 ANSI-Medicaid [id number] ANSI-Medicare Part B [id number] ANSI-Commercial o8665u6b-f37u-53un-j009-qx56pcx14if7 c5631m0p-s13x-13qp-v049-hb00zzn09dc6 ANSI-Medicare Part B [id number]-d2mx-37q3-3775-5i3t8vq79312 ANSI-Medicare Part B [id number]-q09t-6209-n474-6936983b6t6s ANSI-Commercial 0152o0g6-nh61-9h0a-t046-473881432474 6203i8x4-zp73-1u7f-f121-225490078603 ANSI-Medicare Part B [id number]-n34x-[id number] ANSI-Medicaid [id number] ANSI-Medicaid [id number] ANSI-Medicare Part B [id number]-9h9e-[id number] ANSI-Medicare Part B [id number]-[id number] [id number]-02s3-elb1-c6y5225w08w4 ANSI-Commercial u5697fs1-798b-58c0-253p-hl2697r2i767 p6176gl3-904k-29l9-183s-vb8772c2g271 ANSI-Medicaid [id number] ANSI-Medicare Part B [id number] ANSI-Medicare Part B [id number]-ilu3-7uyxj75gri70 up2y670s-91xi-99x0-pgm6-2rhbc60fuk98 ANSI-Commercial ke85s26v-j5l8-147s-08nl-x3akzx9141we lb34u56y-v4t4-411d-00zs-j3hyga7314jb ANSI-Medicare Part B [id number] [id number]-4393-1p35-fmt31mtc5x29 ANSI-Medicaid [id number] ANSI-Commercial w527j271-x6xm-1gi2-5h19-2u9ym83bo7du p281e391-o7gn-6oz9-1f61-5w7fu95dq9oi ANSI-Medicare Part B [id number] 60y6h925-61f6-58w0-320d-28l6de6z9286 ANSI-Commercial 6k5het0r-8j80-4h36-hoxo-0wz8458q58c8 1r2kwd7c-2l40-1q88-wxfd-1wt5290r50o2 ANSI-Medicare Part B [id number]-[id number] 194b8sq2-cv40-68ve-1o9b-bsp06155s4rr ANSI-Medicare Part B [id number]-k661vkfyq28l ANSI-Medicaid [id number] ANSI-Commercial h28i60oc-048s-39vg-nw9u-83957f876m76 l57x42tw-844o-72ok-lk1g-09937v365w46 ANSI-Medicare Part B [id number]-a4wy996c5b3m u21bw146-8996-4h41-3g47-l4nk562b5q8f ANSI-Medicare Part B [id number]-inl5-[id number] 0781v4tz-7000-3p48-akz1-k7c465uefn60 ANSI-Medicaid [id number] Medicaid [facility] Part B [id number] ..[id number] .[id number] Self [id number] [facility]) Commercial [id number]1.844819.0 Self [id number] ANSI-Medicaid [id number] ANSI-Commercial e45rj27z-2352-9scw-w12f-p858f2i3am79 a00qu78w-9427-6jna-e93z-o881n6q9cc97 ANSI-Medicare Part B [id number]-2v72-7b60-d5w8cq6gq6m5 96j62071-f5fy-5a50-3k54-i6x5mw3cu2v8 ANSI-Medicare Part B [id number] 245f928f-623q-8k32-2im3-7j873736y42g ANSI-Medicare Part B [id number]-0v7l-[id number] 05sdc90j-j45r-6c4r-i312-2q7692224167 ANSI-Commercial v82j200d-ky8s-9tcu-umh1-ko3l19842vbw u11z044o-fa3f-9trj-ats7-bh4g49172hbt ANSI-Medicare Part B [id number]-w0y4-2jq7-[id number] 6mq5kc3s-u9o3-5yi4-gj56-1066f5rd1w6y ANSI-Medicaid [id number] ANSI-Medicare Part B [id number]-[id number] ANSI-Medicaid [id number] ANSI-Medicare Part B [id number]-[id number] [id number]-341j-96e4393pmfa8 ANSI-Commercial 819asc7j-c190-18jr-d0t0-2a31jx15ut9y 856ntv5e-m285-35ze-a1m4-5i22dq22pz7o [facility] [id number] SP [id number] MEDICARE [id number] SP [id number] A MEDICARE [id number] SP [id number] A BCBS [facility] 303/803 [id number] SP [id number] BCBS [facility] 303/803 [id number] SP [id number] [facility] [id number] SP [id number] ANSI-Medicare Part B [id number]-[id number] 621oo9d4-0903-09pz-s5s2-511y3210ha01 ANSI-Commercial tuuns1o8-qhj1-5xk5-t07k-zv659d93p086 jgipv3g3-fst6-8lu0-u87v-ru576q09q048 ANSI-Medicare Part B rv4q6do5-hylo-099f-9675-3g848016q02s ti5u9tw7-wqgf-421v-1890-3a861230t81h ANSI-Commercial l47y55p1-h309-5ud5-32t0-6kvtkapm4lt9 y36g61v1-d763-1pn7-26u4-0gavdbwi7fs1 ANSI-Medicare Part B 3xwc3800-j99d-90x1-33lk-650k9f31776k 3ijw8909-g98h-52n0-93fi-371d3v50815j ANSI-Medicare Part B [id number]-t1ik-94nq-29x8-p7m7530ex0v2 698705x6-c9ak-06ls-02z6-s5a9229pd9z1 ANSI-Medicare Part B 46ctf316-i47m-4zm7-gz13-0vi0450367c1 71krh026-x08g-3ho8-tg04-4jk1418210t5 ANSI-Commercial sxs822n2-8393-7x19-6c9w-315u6j3yt77u pos458l9-6641-1r39-0j9y-190a0g1dc92h ANSI-Medicare Part B 8258z74o-p774-86y5-4b8a-8663y9jf27o6 9965n18m-y669-29t6-5t6b-6114l3wp96r1 [facility] Commercial [id number]9.991.905375.0 [facility] [id number] ANSI-Medicare Part B 54655c81-1548-84y0-a737-93j3670t460x 42500f71-0594-17u9-w061-62u6970c504b ANSI-Commercial 47y48861-6069-1d85-7fux-x30pk67yeg19 35i36250-3548-9c15-7qer-q87lg20ksn72 ANSI-Medicare Part B gz4m9z4w-zhk6-9343-2l23-9015c0294999 kp3s5a7y-dbi3-8354-2h44-7537q1784502 ANSI-Medicare Part B 22k0b520-k528-3218-f99e-4re779d075de 83z1b747-i742-3827-v39x-2nt916p991rd ANSI-Commercial z136yv3e-116c-2w04-s669-h7x97q3947e3 y365tz9g-373d-0v08-j062-m7x65f2163b4 ANSI-Medicare Part B [id number]-ep4i-07f6-9147-g5129j18w045 f0667831-co9c-62m9-8857-b2248m64g251 ANSI-Medicare Part B h03837d2-w4vf-9m8a-5p57-1d94v5728mv6 a65880y6-t2ea-7b1k-6k99-5k85x0378um2 ANSI-Commercial hyz4443y-1215-8791-t246-03827jvawn23 mrw9874f-9859-7882-o748-09698qulga36 ANSI-Medicare Part B 19j5g1n7-8zax-2793-110w-40840g64kd31 48z4b1z5-0iax-0494-094j-56287a94gh38 ANSI-Medicare Part B r4c8x4y1-7066-28eb-759i-86hx2lbus3qi y1q5l2d6-1216-92hs-564v-59dv5wxqs1qd ANSI-Commercial rzyn6293-nc04-100f-5j32-69vwl54f44s0 tkle1768-ft47-263h-4q04-27osx39f44r8 ANSI-Medicare Part B x09zgq77-e3s7-9442-wb9v-91o8799cx111 h86jgq38-c7t8-3976-cw4y-71k6136bj084 [facility] ([facility] Commercial [id number]9.991.211816.0 [facility] [id number] ANSI-Medicare Part B 1ps2005p-m32k-7x50-w354-sl09fkh6kpy9 0pm3679e-o69y-5x43-n367-gu46iot6vrp3 ANSI-Commercial 65f0h696-4420-6816-10ox-3u6869kb4u78 09b1n138-5089-1249-25er-6q6555jg8o00 ANSI-Medicare Part B 584su7i0-p47f-9022-m772-6q72t35a1662 030vv0h8-u77g-7978-l139-8p34y32x0405 ANSI-Commercial pwn45357-w45o-706i-5p5d-3a1a5w3137h3 oab59000-b56n-642n-2n2f-5i5a9a0614w0 ANSI-Medicare Part B 984q815f-v99u-0vzq-5l33-92xz3t957t62 296l702h-x36m-1dwd-1n01-95gr2e559j82 ANSI-Medicare Part B z44347l2-8j1j-178j-js41-ge94o55x86g4 f08755l0-5g6q-773p-rg19-ta45e10v41m3 ANSI-Medicare Part B 54l4o172-vqg5-7349-1432-663a4b715s21 24z7g623-lyh3-6749-3779-147y5u814l97 ANSI-Commercial 47u13715-x7r7-61tx-d153-c6238227a760 33b82123-o7n0-02om-y589-o2663877j256 ANSI-Medicare Part B 34fmpl8p-hhy6-0642-w671-598i096v9724 90qqlu1h-ajq2-7531-k204-737r750h9715 [facility] Commercial [id number]9.991.481538.0 Self [id number] ANSI-Commercial 961p24m5-6308-5145-7n76-s16494y624v7 243d19t0-9492-1205-1f48-c68011f335d6 ANSI-Medicare Part B 07ya911w-9w9u-7060-l798-t45w605v1608 53zw838t-0v4x-0886-p284-u67j827b9231 [place] MEDICAID [id number] SP [id number] A [facility] Commercial [id number] Self [id number] ANSI-Medicare Part B 5064jmpj-kwf7-8m088e71-0188-c87eq015xoo3 4981brsf-wur4-4d348j24-2765-v01ai648pcn8 [facility] p38655gn-f380-65bd-8a67-83z647y985u1 a78025in-v873-23vd-2c07-81z354v110g7 ANSI-Medicare Part B 63mtw241-n4j5-73w4-eo8c-4rr7r528a5e4 48ckt651-k0m5-49j4-pu6b-4cj9t369b3i0 BCBS [place] PPO 302/[id number] [facility] [id number] SP [id number] [employer] BCBS Medigap Part B [id number] 2.0.1.226836.3.227.99.8646.269021.0 Self [id number] [facility] [id number] 2.0.1.606545.3.227.99.8646.963830.0 Self [id number] [facility] [id number].83128.0 Self [id number] [employer] BCBS Medigap Part B [id number] 2.0.1.737925.3.227.99.8646.631174.0 Self [id number] [facility] Commercial [id number] 2.0.1.985955.3.227.99.8646.088199.0 Self [id number] [employer] BS Medigap Part B [id number] 2..1.080090.3.227.99.8646.924296.0 Self [id number] [facility] Commercial [id number]6.382513.0 Self [id number] [facility] [id number] SP [id number] Medicare Dme Medigap Part B [id number] Self Medicare Medicare Primary [id number] Self ANSI-Medicare Part B [id number]y092y0s9kt MEDICARE COMPLETE [id number] SP [id number] MEDICARE COMPLETE [id number] SP [id number] MEDICARE [id number] SP [id number] MEDICARE COMPLETE [id number] SP [id number] MEDICARE COMPLETE [id number] SP [id number] EMEDNY [id number] SP [id number] MEDICARE COMPLETE [id number] SP [id number] ANSI-Medicare Part B [id number] ANSI-Medicaid [id number] ANSI-Medicare Part B [id number] ANSI-Commercial 616728v0-5z4c-434a-61e6-iz0o85897bcz 524902t2-0l8a-338z-96u6-oj9p45129tjn ANSI-Commercial 83a84l45-1w3w-9758-d7s7-9941k658255z 06c78p40-7g9b-8492-b4z0-5087v715340a ANSI-Medicare Part B [id number] ANSI-Medicaid [id number] Problems, Conditions, and Diagnoses Code Display Name Description Problem Type Effective Dates Data Source(s) [id number] Pain in left lower limb Pain in Left Lower Limb Proble m 04/24/2021 12:00:00 AM EDT [facility]) [id number] Pancytopenia Pancytopenia Problem 04/24/2021 12:00:00 A M EDT [facility] ([facility]) [id number] Pain in left lower limb Pain in Left Lower Limb Proble m 04/24/2021 12:00:00 AM EDT [facility] ([facility]) [id number] Pancytopenia Pancytopenia Problem 04/24/2021 12:00:00 A M EDT [facility] ([facility]) [id number] Pain in left lower limb Pain in Left Lower Limb Proble m 04/24/2021 12:00:00 AM EDT [facility] ([facility]) [id number] Pancytopenia Pancytopenia Problem 04/24/2021 12:00:00 A M EDT [facility] ([facility]) [id number] Chronic ulcer of lower extremity Chronic Ulcer o f Lower Extremity Problem 04/20/2021 12:00:00 AM EDT [place] ([facility]) [id number] Atrial fibrillation Atrial Fibrillation Problem 0 04/20/2021 12:00:00 AM EDT [place] ([facility]) [id number] Chronic ulcer of lower extremity Chronic Ulcer o f Lower Extremity Problem 04/20/2021 12:00:00 AM EDT [facility] ([facility]) [id number] Atrial fibrillation Atrial Fibrillation Problem 0 04/20/2021 12:00:00 AM EDT [facility] ([facility]) [id number] Chronic ulcer of lower extremity Chronic Ulcer o f Lower Extremity Problem 04/20/2021 12:00:00 AM EDT [facility] ([facility]) [id number] Atrial fibrillation Atrial Fibrillation Problem 0 04/20/2021 12:00:00 AM EDT [facility] ([facility]) [id number] Nicotine dependence Nicotine Dependence Problem 0 02/19/2021 12:00:00 AM EDT [facility] ([facility]) [id number] Type II diabetes mellitus uncontrolled T ype II Diabetes Mellitus Uncontrolled Problem 02/19/2021 12:00:00 AM EDT [facility] ([facility]) [id number] Nicotine dependence Nicotine Dependence Problem 0 02/19/2021 12:00:00 AM EDT [place] ([facility]) [id number] Type II diabetes mellitus uncontrolled T ype II Diabetes Mellitus Uncontrolled Problem 02/19/2021 12:00:00 AM EDT [place] ([facility]) [id number] Nicotine dependence Nicotine Dependence Problem 0 02/19/2021 12:00:00 AM EDT [place] ([facility]) [id number] Type II diabetes mellitus uncontrolled T ype II Diabetes Mellitus Uncontrolled Problem 02/19/2021 12:00:00 AM EDT [place] ([facility]) [id number] Nicotine dependence Nicotine Dependence Problem 0 02/19/2021 12:00:00 AM EDT [place] ([facility]) [id number] Type II diabetes mellitus uncontrolled T ype II Diabetes Mellitus Uncontrolled Problem 02/19/2021 12:00:00 AM EDT [place] ([facility]) [id number] Nicotine dependence Nicotine Dependence Problem 0 02/19/2021 12:00:00 AM EDT [place] ([facility]) [id number] Type II diabetes mellitus uncontrolled T ype II Diabetes Mellitus Uncontrolled Problem 02/19/2021 12:00:00 AM EDT [place] ([facility]) [id number] Nicotine dependence Nicotine Dependence Problem 0 02/19/2021 12:00:00 AM EDT [place] ([facility]) [id number] Type II diabetes mellitus uncontrolled T ype II Diabetes Mellitus Uncontrolled Problem 02/19/2021 12:00:00 AM EDT [place] ([facility]) B35.1 Onychomycosis Onychomycosis Problem 12/28/2020 12:00:00 AM EDT [facility] ([facility] 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 mellitus Problem 12/28/2020 12:00:00 AM EDT [facility] ([facility] M79.676 Pain in limb Pain in limb Problem 12/28/2020 12:00:00 A M EDT [facility] ([facility] Surgeries/Procedures Procedure Description Date Indications Data Source(s) Medication: 4% Lidocaine topical cream (Anecream) 30 gm 07/26/2021 12:00:00 AM EST eCW1 ([facility]) Medication: 4% Lidocaine topical cream (Anecream) 30 gm 07/13/2021 12:00:00 AM EST eCW1 ([facility]) DEBRIDEMENT NAIL ANY METHOD 07/04/2021 12:00:00 AM EDT [facility] ([facility] Medication: 4% Lidocaine topical cream (Anecream) 30 gm 06/30/2021 12:00:00 AM EDT eCW1 ([facility]) Medication: 4% Lidocaine topical cream (Anecream) 30 gm 06/23/2021 12:00:00 AM EDT eCW1 ([facility]) Medication: 4% Lidocaine topical cream (Anecream) 30 gm 06/16/2021 12:00:00 AM EDT eCW1 ([facility]) Medication: 4% Lidocaine topical cream (Anecream) 30 gm 06/09/2021 12:00:00 AM EDT eCW1 ([facility]) Medication: 4% Lidocaine topical cream (Anecream) 30 gm 05/19/2021 12:00:00 AM EDT eCW1 ([facility]) Medication: 4% Lidocaine topical cream (Anecream) 30 gm 05/12/2021 12:00:00 AM EDT eCW1 ([facility]) DEBRIDEMENT NAIL ANY METHOD 04/25/2021 12:00:00 AM EDT [facility] ([facility] Medication: 4% Lidocaine topical cream (Anecream) 30 gm 04/21/2021 12:00:00 AM EDT eCW1 ([facility]) Medication: 4% Lidocaine topical cream (Anecream) 30 gm 04/07/2021 12:00:00 AM EDT eCW1 ([facility]) XR, ribs, unilateral, 2 view 03/31/2021 12:00:00 AM ED T [place] ([facility]) XR, ribs, unilateral, 2 view 03/31/2021 12:00:00 AM ED T [place] ([facility]) XR, ribs, unilateral, 2 view 03/31/2021 12:00:00 AM ED T [place] ([facility]) Medication: 4% Lidocaine topical cream (Anecream) 30 gm 03/31/2021 12:00:00 AM EDT eCW1 ([facility]) XR, ribs, unilateral, 2 view 03/31/2021 12:00:00 AM ED T [place] ([facility]) Medication: 4% Lidocaine topical cream (Anecream) 30 gm 03/17/2021 12:00:00 AM EDT eCW1 ([facility]) Medication: 4% Lidocaine topical cream (Anecream) 30 gm 03/10/2021 12:00:00 AM EDT eCW1 ([facility]) Medication: 2% Lidocaine intradermal 02/24/2021 12:00: 00 AM EDT eCW1 ([facility]) Medication: 4% Lidocaine topical cream (Anecream) 30 gm 02/24/2021 12:00:00 AM EDT eCW1 ([facility]) Medication: 4% Lidocaine topical cream (Anecream) 30 gm 02/17/2021 12:00:00 AM EDT eCW1 ([facility]) XR, ribs, unilateral, 2 view 02/16/2021 12:00:00 AM ED T [place] ([facility]) XR, ribs, unilateral, 2 view 02/16/2021 12:00:00 AM ED T [place] ([facility]) XR, ribs, unilateral, 2 view 02/16/2021 12:00:00 AM ED T [place] ([facility]) XR, ribs, unilateral, 2 view 02/16/2021 12:00:00 AM ED T [place] ([facility]) XR, ribs, unilateral, 2 view 02/16/2021 12:00:00 AM ED T [place] ([facility]) XR, ribs, unilateral, 2 view 02/16/2021 12:00:00 AM ED T [place] ([facility]) DEBRIDEMENT NAIL ANY METHOD 02/14/2021 12:00:00 AM EDT [facility] ([facility] Medication: 4% Lidocaine topical cream (Anecream) 30 gm 01/27/2021 12:00:00 AM EDT eCW1 ([facility]) Medication: 4% Lidocaine topical cream (Anecream) 30 gm 01/19/2021 12:00:00 AM EDT eCW1 ([facility]) Medication: 4% Lidocaine topical cream (Anecream) 30 gm 01/12/2021 12:00:00 AM EDT eCW1 ([facility]) Medication: 4% Lidocaine topical cream (Anecream) 30 gm 01/06/2021 12:00:00 AM EDT eCW1 ([facility]) Medication: 4% Lidocaine topical cream (Anecream) 30 gm 12/29/2020 12:00:00 AM EDT eCW1 ([facility]) Medication: 4% Lidocaine topical cream (Anecream) 30 gm 12/23/2020 12:00:00 AM EDT eCW1 ([facility]) Medication: Aquaphor healing ointment topical 12/24/19 12:00:00 AM EDT eCW1 ([facility]) DEBRIDEMENT NAIL ANY METHOD 12/15/2020 12:00:00 AM EDT [facility] ([facility] OFFICE OUTPATIENT VISIT 15 MINUTES 12/15/2020 12:00:00 AM EDT [facility] ([facility] Medication: 4% Lidocaine topical cream (Anecream) 30 gm 12/09/2020 12:00:00 AM EDT eCW1 ([facility]) FINE NEEDLE ASPIRATION W/O IMAGING GUIDANCE 12/02/2020 12:00:00 AM EDT eCW1 ([facility]) Medication: 4% Lidocaine topical cream (Anecream) 30 gm 11/23/2020 12:00:00 AM EDT eCW1 ([facility]) FINE NEEDLE ASPIRATION W/O IMAGING GUIDANCE 11/16/2020 12:00:00 AM EDT eCW1 ([facility]) Medication: Aquaphor healing ointment topical 11/09/19 12:00:00 AM EST eCW1 ([facility]) Medication: 4% Lidocaine topical cream (Anecream) 30 gm 11/08/2020 12:00:00 AM EST eCW1 ([facility]) Medication: 2% Lidocaine intradermal 11/01/2020 12:00: 00 AM EST eCW1 ([facility]) FINE NEEDLE ASPIRATION W/O IMAGING GUIDANCE 11/01/2020 12:00:00 AM EST eCW1 ([facility]) Medication: Aquaphor healing ointment topical 11/02/19 12:00:00 AM EST eCW1 ([facility]) Medication: Aquaphor healing ointment topical 10/17/19 12:00:00 AM EST eCW1 ([facility]) Medication: 4% Lidocaine topical cream (Anecream) 30 gm 10/17/2020 12:00:00 AM EST eCW1 ([facility]) Medication: 4% Lidocaine topical cream (Anecream) 30 gm 10/07/2020 12:00:00 AM EST eCW1 ([facility]) FINE NEEDLE ASPIRATION W/O IMAGING GUIDANCE 09/30/2020 12:00:00 AM EST eCW1 ([facility]) FINE NEEDLE ASPIRATION W/O IMAGING GUIDANCE 09/23/2020 12:00:00 AM EST eCW1 ([facility]) FINE NEEDLE ASPIRATION W/O IMAGING GUIDANCE 09/14/2020 12:00:00 AM EST eCW1 ([facility]) FINE NEEDLE ASPIRATION W/O IMAGING GUIDANCE 08/24/2020 12:00:00 AM EST eCW1 ([facility]) FINE NEEDLE ASPIRATION W/O IMAGING GUIDANCE 08/17/2020 12:00:00 AM EST eCW1 ([facility]) FINE NEEDLE ASPIRATION W/O IMAGING GUIDANCE 08/11/2020 12:00:00 AM EST eCW1 ([facility]) X-Ray Hip Unilateral With Pelvis 2-3 Views 08/08/2020 12:00:00 AM EST MEDENT ([facility]) FINE NEEDLE ASPIRATION W/O IMAGING GUIDANCE 08/03/2020 12:00:00 AM EST eCW1 ([facility]) FINE NEEDLE ASPIRATION W/O IMAGING GUIDANCE 07/25/2020 12:00:00 AM EST eCW1 ([facility]) FINE NEEDLE ASPIRATION W/O IMAGING GUIDANCE 07/15/2020 12:00:00 AM EST eCW1 ([facility]) FINE NEEDLE ASPIRATION W/O IMAGING GUIDANCE 07/08/2020 12:00:00 AM EST eCW1 ([facility]) FINE NEEDLE ASPIRATION W/O IMAGING GUIDANCE 07/01/2020 12:00:00 AM EDT eCW1 ([facility]) FINE NEEDLE ASPIRATION W/O IMAGING GUIDANCE 06/24/2020 12:00:00 AM EDT eCW1 ([facility]) FINE NEEDLE ASPIRATION W/O IMAGING GUIDANCE 06/09/2020 12:00:00 AM EDT eCW1 ([facility]) Results ID Date Data Source [id number] 06/26/2021 04:30:33 PM EDT THOMSON ([facility]) Name Value Range Interpretation Code Description Data Romy rce(s) Supporting Document(s) Blood Glucose: mg/dl Blood Glucose: mg/dl [place] ([facility]) ID Date Data Source [id number] 04/20/2021 11:35:00 AM EDT [place] ([facility]) Name Value Range Interpretation Code Description Data Romy rce(s) Supporting Document(s) Leukocytes [#/volume] in Blood by Automated count 3.8 thousand/uL 3 .8-10.8 White Blood Cell Count ROSEMARY ([facility]) Hemoglobin [Mass/volume] in Blood 10.4 g/dL 11.7-15.5 Below l ow normal Hemoglobin RO[place]ARY ([facility]) Erythrocytes [#/volume] in Blood by Automated count 3.75 million /uL 3.80-5.10 Below low normal Red Blood Cell Count RO[place] ([facility]) Hematocrit [Volume Fraction] of Blood by Automated count 32.4 % 35.0-45.0 Below low normal Hematocrit RO[place] ([facility]) Erythrocyte mean corpuscular volume [Entitic volume] by Auto mated count 86.4 fL 80.0-100.0 Mcv ROSEMARY ([facility]) Erythrocyte mean corpuscular hemoglobin [Entitic mass] by Automated count 27.7 pg 27.0-33.0 Mch ROSEMARY ([facility]) Erythrocyte distribution width [Ratio] by Automated count 13.3 % 11.0-15.0 Rdw RO[place] ([facility]) Erythrocyte mean corpuscular hemoglobin concentration [Mass/volume] by Automated count 32.1 g/dL 32.0-36.0 Mchc ROSEMARY ([facility]) Platelets [#/volume] in Blood by Automated count 150 thousand/uL 14 0-400 Platelet Count ROSEMARY ([facility]) Platelet mean volume [Entitic volume] in Blood by Marcelino-Deidre 11.0 f L 7.5-12.5 Mpv RO[place] ([facility]) Neutrophils [#/volume] in Blood by Automated count 1607 cells/uL 15 00-7800 Absolute Neutrophils RO[place] ([facility]) Lymphocytes [#/volume] in Blood by Automated count 1471 cells/uL 85 0-3900 Absolute Lymphocytes RO[place] ([facility]) Monocytes [#/volume] in Blood by Automated count 410 cells/uL 200-9 50 Absolute Monocytes RO[place] ([facility]) Eosinophils [#/volume] in Blood by Automated count 270 cells/uL 15- 500 Absolute Eosinophils RO[place] ([facility]) Basophils [#/volume] in Blood by Automated count 42 cells/uL 0-200 Absolute Basophils RO[place] ([facility]) Neutrophils/100 leukocytes in Blood by Automated count 42.3 % 38-80 Neutrophils RO[place] ([facility]) Lymphocytes/100 leukocytes in Blood by Automated count 38.7 % 15-49 Lymphocytes RO[place] ([facility]) Monocytes/100 leukocytes in Blood by Automated count 10.8 % 0-13 Monocytes RO[place] ([facility]) Basophils/100 leukocytes in Blood by Automated count 1.1 % 0-2 Basophils [place] ([facility]) Eosinophils/100 leukocytes in Blood by Automated count 7.1 % 0-8 [facility] ID Date Data Source [id number] 04/20/2021 11:35:00 AM EDT [facility]) Name Value Range Interpretation Code Description Data Romy rce(s) Supporting Document(s) Pathologist review of Blood tests Pa thologist Review of Peripheral Smear [facility]) ID Date Data Source [id number] 04/20/2021 11:35:00 AM EDT [facility]) Name Value Range Interpretation Code Description Data Romy rce(s) Supporting Document(s) Glucose [Mass/volume] in Serum or Plasma 202 mg/dL 65-99 Above high normal Glucose TH[place] ([facility]) Urea nitrogen [Mass/volume] in Serum or Plasma 17 mg/dL 7-25 Urea Nitrogen (BUN) [facility] Glomerular filtration rate/1.73 sq M.pre dicted among non-blacks [Volume Rate/Area] in Serum, Plasma or Blood by Creatinine-based formula (CKD-EPI) 70 mL/min/1.73m2 > or = 60 eGFR Non-afr. [place] ROSEMARY ([facility]) Creatinine [Mass/volume] in Serum or Plasma 0.82 mg/dL 0.60-0.93 Creatinine [facility]) Urea nitrogen/Creatinine [Mass Ratio] in Serum or Plasma not applic able 6-22 BUN/creatinine Ratio [facility]) Glomerular filtration rate/1.73 sq M.pre dicted among blacks [Volume Rate/Area] in Serum, Plasma or Blood by Creatinine-based formula (CKD-EPI) 81 mL/min/1.73m2 > or = 60 eGFR RO[place] ([facility]) Sodium [Moles/volume] in Serum or Plasma 138 mmol/L 135-146 Sodium RO[place] ([facility]) Potassium [Moles/volume] in Serum or Plasma 3.6 mmol/L 3.5-5.3 Potassium RO[place] ([facility]) Carbon dioxide, total [Moles/volume] in Serum or Plasma 28 mmol/L 20-32 Carbon Dioxide RO[place] ([facility]) Chloride [Moles/volume] in Serum or Plasma 99 mmol/L 98-110 Chloride TH[place] ([facility]) Calcium [Mass/volume] in Serum or Plasma 9.1 mg/dL 8.6-10.4 Calcium TH[place] ([facility]) Protein [Mass/volume] in Serum or Plasma 8.1 g/dL 6.1-8.1 Protein, Total [place] ([facility]) Albumin [Mass/volume] in Serum or Plasma 3.8 g/dL 3.6-5.1 Albumin [place] ([facility]) Globulin [Mass/volume] in Serum by calculation 4.3 g/dL_(calc) 1 .9-3.7 Above high normal Globulin THOMSON ([facility]) Bilirubin.total [Mass/volume] in Serum or Plasma 0.7 mg/dL 0.2-1 .2 Bilirubin, Total TH[place] ([facility]) Albumin/Globulin [Mass Ratio] in Serum or Plasma 0.9 (calc) 1.0-2.5 Below low normal Albumin/globulin Ratio RO[place] ([facility]) Alkaline phosphatase [Enzymatic activity/volume] in Serum or Plasma 63 U/L 37-153 Alkaline Phosphatase TH[place] ([facility]) Aspartate aminotransferase [Enzymatic activity/volume] in Serum or Plasma 17 U/L 10-35 Ast RO[place] ([facility]) Alanine aminotransferase [Enzymatic activity/volume] in Seru m or Plasma 11 U/L 6-29 Alt RO[place] ([facility]) ID Date Data Source [id number] 04/20/2021 11:35:00 AM EDT [place] ([facility]) Name Value Range Interpretation Code Description Data Romy rce(s) Supporting Document(s) Leukocytes [#/volume] in Blood by Automated count 3.8 thousand/uL 3 .8-10.8 White Blood Cell Count RO[place] ([facility]) Erythrocytes [#/volume] in Blood by Automated count 3.75 million /uL 3.80-5.10 Below low normal Red Blood Cell Count [place] ([facility]) Hematocrit [Volume Fraction] of Blood by Automated count 32.4 % 35.0-45.0 Below low normal Hematocrit [place] ([facility]) Hemoglobin [Mass/volume] in Blood 10.4 g/dL 11.7-15.5 Below l ow normal Hemoglobin [place] ([facility]) Erythrocyte mean corpuscular volume [Entitic volume] by Auto mated count 86.4 fL 80.0-100.0 Mcv [place] ([facility]) Erythrocyte mean corpuscular hemoglobin [Entitic mass] by Automated count 27.7 pg 27.0-33.0 Mch RO[place] ([facility]) Erythrocyte distribution width [Ratio] by Automated count 13.3 % 11.0-15.0 Rdw RO[place] ([facility]) Erythrocyte mean corpuscular hemoglobin concentration [Mass/volume] by Automated count 32.1 g/dL 32.0-36.0 Mchc RO[place] ([facility]) Platelets [#/volume] in Blood by Automated count 150 thousand/uL 14 0-400 Platelet Count RO[place] ([facility]) Platelet mean volume [Entitic volume] in Blood by Demetris 11.0 f L 7.5-12.5 Mpv [place] ([facility]) Neutrophils [#/volume] in Blood by Automated count 1607 cells/uL 15 00-7800 Absolute Neutrophils [place] ([facility]) Lymphocytes [#/volume] in Blood by Automated count 1471 cells/uL 85 0-3900 Absolute Lymphocytes [place] ([facility]) Monocytes [#/volume] in Blood by Automated count 410 cells/uL 200-9 50 Absolute Monocytes [place] ([facility]) Eosinophils [#/volume] in Blood by Automated count 270 cells/uL 15- 500 Absolute Eosinophils [place] ([facility]) Basophils [#/volume] in Blood by Automated count 42 cells/uL 0-200 Absolute Basophils [place] ([facility]) Neutrophils/100 leukocytes in Blood by Automated count 42.3 % 38-80 Neutrophils [place] ([facility]) Monocytes/100 leukocytes in Blood by Automated count 10.8 % 0-13 Monocytes [place] ([facility]) Lymphocytes/100 leukocytes in Blood by Automated count 38.7 % 15-49 Lymphocytes [place] ([facility]) Eosinophils/100 leukocytes in Blood by Automated count 7.1 % 0-8 Eosinophils [place] ([facility]) Basophils/100 leukocytes in Blood by Automated count 1.1 % 0-2 Basophils [place] ([facility]) ID Date Data Source [id number] 04/20/2021 11:35:00 AM EDT [facility]) Name Value Range Interpretation Code Description Data Romy rce(s) Supporting Document(s) Pathologist review of Blood tests Pa thologist Review of Peripheral Smear [place] ([facility]) ID Date Data Source [id number] 04/20/2021 11:35:00 AM EDT [facility]) Name Value Range Interpretation Code Description Data Romy rce(s) Supporting Document(s) Glucose [Mass/volume] in Serum or Plasma 202 mg/dL 65-99 Above high normal Glucose [place] ([facility]) Urea nitrogen [Mass/volume] in Serum or Plasma 17 mg/dL 7-25 Urea Nitrogen (BUN) [place] ([facility]) Creatinine [Mass/volume] in Serum or Plasma 0.82 mg/dL 0.60-0.93 Creatinine [place] ([facility]) Glomerular filtration rate/1.73 sq M.pre dicted among non-blacks [Volume Rate/Area] in Serum, Plasma or Blood by Creatinine-based formula (CKD-EPI) 70 mL/min/1.73m2 > or = 60 eGFR Non-afr. [place] RO[place]ARY ([facility]) Glomerular filtration rate/1.73 sq M.pre dicted among blacks [Volume Rate/Area] in Serum, Plasma or Blood by Creatinine-based formula (CKD-EPI) 81 mL/min/1.73m2 > or = 60 eGFR [place] ([facility]) Urea nitrogen/Creatinine [Mass Ratio] in Serum or Plasma not applic able 6-22 BUN/creatinine Ratio [place] ([facility]) Sodium [Moles/volume] in Serum or Plasma 138 mmol/L 135-146 Sodium [place] ([facility]) Potassium [Moles/volume] in Serum or Plasma 3.6 mmol/L 3.5-5.3 Potassium [place] ([facility]) Chloride [Moles/volume] in Serum or Plasma 99 mmol/L 98-110 Chloride [place] ([facility]) Carbon dioxide, total [Moles/volume] in Serum or Plasma 28 mmol/L 20-32 Carbon Dioxide RO[place] ([facility]) Calcium [Mass/volume] in Serum or Plasma 9.1 mg/dL 8.6-10.4 Calcium [place] ([facility]) Protein [Mass/volume] in Serum or Plasma 8.1 g/dL 6.1-8.1 Protein, Total [facility]) Albumin [Mass/volume] in Serum or Plasma 3.8 g/dL 3.6-5.1 Albumin [facility]) Globulin [Mass/volume] in Serum by calculation 4.3 g/dL_(calc) 1 .9-3.7 Above high normal Globulin [facility] ([facility]) Albumin/Globulin [Mass Ratio] in Serum or Plasma 0.9 (calc) 1.0-2.5 Below low normal Albumin/globulin Ratio RO[place] ([facility]) Bilirubin.total [Mass/volume] in Serum or Plasma 0.7 mg/dL 0.2-1 .2 Bilirubin, Total [place] ([facility]) Alkaline phosphatase [Enzymatic activity/volume] in Serum or Plasma 63 U/L 37-153 Alkaline Phosphatase [place] ([facility]) Aspartate aminotransferase [Enzymatic activity/volume] in Serum or Plasma 17 U/L 10-35 Ast [place] ([facility]) Alanine aminotransferase [Enzymatic activity/volume] in Seru m or Plasma 11 U/L 6-29 Alt [place] ([facility]) ID Date Data Source [id number] 04/06/2021 10:13:00 AM EDT [facility]) Name Value Range Interpretation Code Description Data Romy rce(s) Supporting Document(s) Blood Glucose: mg/dl Blood Glucose: mg/dl [facility]) ID Date Data Source [id number] 04/06/2021 10:13:00 AM EDT [facility]) Name Value Range Interpretation Code Description Data Romy rce(s) Supporting Document(s) Blood Glucose: mg/dl Blood Glucose: mg/dl [facility]) ID Date Data Source [id number] 04/06/2021 10:13:00 AM EDT [facility]) Name Value Range Interpretation Code Description Data Romy rce(s) Supporting Document(s) Blood Glucose: mg/dl Blood Glucose: mg/dl [facility]) ID Date Data Source [id number] 03/22/2021 08:46:00 PM EDT [facility]) Name Value Range Interpretation Code Description Data Romy rce(s) Supporting Document(s) bedside glucose 185 mg/dL 83-110 Above high normal Bedside Gluco se [facility]) ID Date Data Source [id number] 03/22/2021 08:46:00 PM EDT [facility]) Name Value Range Interpretation Code Description Data Romy rce(s) Supporting Document(s) bedside glucose 185 mg/dL 83-110 Above high normal Bedside Gluco se [facility]) ID Date Data Source [id number] 03/22/2021 08:46:00 PM EDT [facility]) Name Value Range Interpretation Code Description Data Romy rce(s) Supporting Document(s) bedside glucose 185 mg/dL 83-110 Above high normal Bedside Gluco se [place] ([facility]) ID Date Data Source [id number] 03/22/2021 08:46:00 PM EDT RO[place]ARY ([facility]) Name Value Range Interpretation Code Description Data Romy rce(s) Supporting Document(s) bedside glucose 185 mg/dL 83-110 Above high normal Bedside Gluco se [facility]) ID Date Data Source [id number] 03/22/2021 06:13:00 PM EDT [facility]) Name Value Range Interpretation Code Description Data Romy rce(s) Supporting Document(s) bedside glucose 89 mg/dL 83-110 Bedside Glucose ATHE NA ([facility]) ID Date Data Source [id number] 03/22/2021 06:13:00 PM EDT [facility]) Name Value Range Interpretation Code Description Data Romy rce(s) Supporting Document(s) bedside glucose 89 mg/dL 83-110 Bedside Glucose ATHE NA ([facility]) ID Date Data Source [id number] 03/22/2021 06:13:00 PM EDT [facility]) Name Value Range Interpretation Code Description Data Romy rce(s) Supporting Document(s) bedside glucose 89 mg/dL 83-110 Bedside Glucose ATHE NA ([facility]) ID Date Data Source [id number] 03/22/2021 06:13:00 PM EDT [facility]) Name Value Range Interpretation Code Description Data Romy rce(s) Supporting Document(s) bedside glucose 89 mg/dL 83-110 Bedside Glucose ATHE NA ([facility]) ID Date Data Source [id number] 03/22/2021 12:09:00 PM EDT [facility]) Name Value Range Interpretation Code Description Data Romy rce(s) Supporting Document(s) bedside glucose 179 mg/dL 83-110 Above high normal Bedside Gluco se TH[place] ([facility]) ID Date Data Source [id number] 03/22/2021 12:09:00 PM EDT [facility]) Name Value Range Interpretation Code Description Data Romy rce(s) Supporting Document(s) bedside glucose 179 mg/dL 83-110 Above high normal Bedside Gluco se [place] ([facility]) ID Date Data Source [id number] 03/22/2021 12:09:00 PM EDT [facility]) Name Value Range Interpretation Code Description Data Romy rce(s) Supporting Document(s) bedside glucose 179 mg/dL 83-110 Above high normal Bedside Gluco se [place] ([facility]) ID Date Data Source [id number] 03/22/2021 12:09:00 PM EDT [facility]) Name Value Range Interpretation Code Description Data Romy rce(s) Supporting Document(s) bedside glucose 179 mg/dL 83-110 Above high normal Bedside Gluco se TH[place] ([facility]) ID Date Data Source [id number] 03/21/2021 08:25:00 PM EDT [facility]) Name Value Range Interpretation Code Description Data Romy rce(s) Supporting Document(s) bedside glucose 110 mg/dL 83-110 Bedside Glucose ATHE NA ([facility]) ID Date Data Source [id number] 03/21/2021 08:25:00 [facility] Name Value Range Interpretation Code Description Data Romy rce(s) Supporting Document(s) bedside glucose 110 mg/dL 83-110 Bedside Glucose ATHE BRITANY ([facility]) ID Date Data Source [id number] 03/21/2021 08:25:00 PM [facility] Name Value Range Interpretation Code Description Data Romy rce(s) Supporting Document(s) bedside glucose 110 mg/dL 83-110 Bedside Glucose ATHVarsha GARG ([facility]) ID Date Data Source [id number] 03/21/2021 08:25:00 PM EDT [facility]) Name Value Range Interpretation Code Description Data Romy rce(s) Supporting Document(s) bedside glucose 110 mg/dL 83-110 Bedside Glucose ATHVarsha GARG ([facility]) ID Date Data Source [id number] 03/21/2021 05:03:00 PM EDT [facility]) Name Value Range Interpretation Code Description Data Romy rce(s) Supporting Document(s) bedside glucose 138 mg/dL 83-110 Above high normal Bedside Gluco se [facility]) ID Date Data Source [id number] 03/21/2021 05:03:00 PM EDT [facility]) Name Value Range Interpretation Code Description Data Romy rce(s) Supporting Document(s) bedside glucose 138 mg/dL 83-110 Above high normal Bedside Gluco se [facility]) ID Date Data Source [id number] 03/21/2021 05:03:00 PM EDT [facility]) Name Value Range Interpretation Code Description Data Romy rce(s) Supporting Document(s) bedside glucose 138 mg/dL 83-110 Above high normal Bedside Gluco se [place] ([facility]) ID Date Data Source [id number] 03/21/2021 05:03:00 PM EDT [facility]) Name Value Range Interpretation Code Description Data Romy rce(s) Supporting Document(s) bedside glucose 138 mg/dL 83-110 Above high normal Bedside Gluco se [facility]) ID Date Data Source [id number] 03/21/2021 12:44:00 PM EDT [facility]) Name Value Range Interpretation Code Description Data Romy rce(s) Supporting Document(s) bedside glucose 139 mg/dL 83-110 Above high normal Bedside Gluco se [facility]) ID Date Data Source [id number] 03/21/2021 12:44:00 PM EDT [facility]) Name Value Range Interpretation Code Description Data Romy rce(s) Supporting Document(s) bedside glucose 139 mg/dL 83-110 Above high normal Bedside Gluco se [facility]) ID Date Data Source [id number] 03/21/2021 12:44:00 PM EDT [facility]) Name Value Range Interpretation Code Description Data Romy rce(s) Supporting Document(s) bedside glucose 139 mg/dL 83-110 Above high normal Bedside Gluco se [facility]) ID Date Data Source [id number] 03/21/2021 12:44:00 PM EDT [facility]) Name Value Range Interpretation Code Description Data Romy rce(s) Supporting Document(s) bedside glucose 139 mg/dL 83-110 Above high normal Bedside Gluco se [facility]) ID Date Data Source [id number] 03/21/2021 09:08:00 AM EDT [facility]) Name Value Range Interpretation Code Description Data Romy rce(s) Supporting Document(s) bedside glucose 128 mg/dL 83-110 Above high normal Bedside Gluco se [facility]) ID Date Data Source [id number] 03/21/2021 09:08:00 [facility] Name Value Range Interpretation Code Description Data Romy rce(s) Supporting Document(s) bedside glucose 128 mg/dL 83-110 Above high normal Bedside Gluco se [facility]) ID Date Data Source [id number] 03/21/2021 09:08:00 AM EDT [facility]) Name Value Range Interpretation Code Description Data Romy rce(s) Supporting Document(s) bedside glucose 128 mg/dL 83-110 Above high normal Bedside Gluco se [facility] ([facility]) ID Date Data Source [id number] 03/21/2021 09:08:00 AM EDT [facility]) Name Value Range Interpretation Code Description Data Romy rce(s) Supporting Document(s) bedside glucose 128 mg/dL 83-110 Above high normal Bedside Gluco se [facility] ([facility]) ID Date Data Source [id number] 03/20/2021 10:59:00 PM EDT [facility]) Name Value Range Interpretation Code Description Data Romy rce(s) Supporting Document(s) troponin I < 0.02 < 0.10 Troponin I [facility]) ID Date Data Source [id number] 03/20/2021 10:59:00 PM EDT [facility]) Name Value Range Interpretation Code Description Data Romy rce(s) Supporting Document(s) blood urea nitrogen 12 mg/dL 7-18 Blood Urea Nitro gen [facility] ([facility]) glucose, fasting 150 mg/dL 70-100 Above high normal Glucose, Fas ting [facility] ([facility]) sodium level 142 mEq/L 136-145 Sodium Level [facility] (No [facility]) glomerular filtration rate > 60.0 >39 Glomerula r Filtration Rate [facility] ([facility]) creatinine for GFR 0.70 mg/dL 0.55-1.30 Creatinine for GF R [facility] ([facility]) chloride level 109 mEq/L 98-107 Above high normal Chloride Level [facility] ([facility]) potassium serum 3.9 mEq/L 3.5-5.1 Potassium Serum ATH NA ([facility]) carbon dioxide level 29 mEq/L 21-32 Carbon Dioxide Level [facility] ([facility]) anion gap 4 mEq/L 8-16 Below low normal Anion Gap [facility] ( [facility]) calcium level 8.2 mg/dL 8.8-10.2 Below low normal Calcium Level AT [facility] ([facility]) ID Date Data Source [id number] 03/20/2021 10:59:00 PM EDT [facility] ([facility]) Name Value Range Interpretation Code Description Data Romy rce(s) Supporting Document(s) white blood count 3.9 10 4.0-10.0 Below low normal White Blood Count [facility] ([facility]) red blood count 3.39 10 4.00-5.40 Below low normal Red Blood Coun t [facility] ([facility]) hemoglobin 9.5 g/dL 12.0-15.5 Below low normal Hemoglobin [facility] ( [facility]) hematocrit 28.9 % 36.0-47.0 Below low normal Hematocrit [facility] ( [facility]) mean corpuscular volume 85.3 fL 80.0-96.0 Mean Corpusc ular Volume [facility] ([facility]) mean corpuscular hemoglobin 28.0 pg 27.0-33.0 Mean Cor puscular Hemoglobin [facility] ([facility]) mean corpuscular HGB conc 32.9 g/dL 32.0-36.5 Mean Corpu scular HGB Conc [facility] ([facility]) red cell distribution width 14.2 % 11.5-14.5 Red Cell Distribution Width [facility] ([facility]) platelet count, automated 111 10 150-450 Below low marlon l Platelet Count, Automated [place] ([facility]) nucleated red blood cell % 0.0 % 0-0 Nucleated Red Blood Cell % [facility] ([facility]) ID Date Data Source [id number] 03/20/2021 10:59:00 PM EDT [facility]) Name Value Range Interpretation Code Description Data Romy rce(s) Supporting Document(s) troponin I < 0.02 < 0.10 Troponin I [facility]) ID Date Data Source [id number] 03/20/2021 10:59:00 PM EDT [facility] ([facility]) Name Value Range Interpretation Code Description Data Romy rce(s) Supporting Document(s) glucose, fasting 150 mg/dL 70-100 Above high normal Glucose, Fas ting [facility] ([facility]) blood urea nitrogen 12 mg/dL 7-18 Blood Urea Nitro gen [facility] ([facility]) creatinine for GFR 0.70 mg/dL 0.55-1.30 Creatinine for GF R [facility] ([facility]) sodium level 142 mEq/L 136-145 Sodium Level [facility] (No [facility]) glomerular filtration rate > 60.0 >39 Glomerula r Filtration Rate [facility] ([facility]) potassium serum 3.9 mEq/L 3.5-5.1 Potassium Serum ATH NA ([facility]) chloride level 109 mEq/L 98-107 Above high normal Chloride Level [facility] ([facility]) anion gap 4 mEq/L 8-16 Below low normal Anion Gap [facility] ( [facility]) carbon dioxide level 29 mEq/L 21-32 Carbon Dioxide Level [facility] ([facility]) calcium level 8.2 mg/dL 8.8-10.2 Below low normal Calcium Level AT [facility]) ID Date Data Source [id number] 03/20/2021 10:59:00 PM EDT [facility] ([facility]) Name Value Range Interpretation Code Description Data Roym rce(s) Supporting Document(s) white blood count 3.9 10 4.0-10.0 Below low normal White Blood Count [facility] ([facility]) red blood count 3.39 10 4.00-5.40 Below low normal Red Blood Coun t [facility] ([facility]) hemoglobin 9.5 g/dL 12.0-15.5 Below low normal Hemoglobin [facility] ( [facility]) hematocrit 28.9 % 36.0-47.0 Below low normal Hematocrit [facility] ( [facility]) mean corpuscular volume 85.3 fL 80.0-96.0 Mean Corpusc ular Volume [facility] ([facility]) mean corpuscular hemoglobin 28.0 pg 27.0-33.0 Mean Cor puscular Hemoglobin [facility] ([facility]) mean corpuscular HGB conc 32.9 g/dL 32.0-36.5 Mean Corpu scular HGB Conc [facility] ([facility]) red cell distribution width 14.2 % 11.5-14.5 Red Cell Distribution Width [facility] ([facility]) nucleated red blood cell % 0.0 % 0-0 Nucleated Red Blood Cell % [facility] ([facility]) platelet count, automated 111 10 150-450 Below low marlon l Platelet Count, Automated [facility] ([facility]) ID Date Data Source [id number] 03/20/2021 10:59:00 PM EDT [facility] ([facility]) Name Value Range Interpretation Code Description Data Romy rce(s) Supporting Document(s) troponin I < 0.02 < 0.10 Troponin I [facility]) ID Date Data Source [id number] 03/20/2021 10:59:00 PM EDT [facility] ([facility]) Name Value Range Interpretation Code Description Data Romy rce(s) Supporting Document(s) glucose, fasting 150 mg/dL 70-100 Above high normal Glucose, Fas ting [facility] ([facility]) blood urea nitrogen 12 mg/dL 7-18 Blood Urea Nitro gen [facility] ([facility]) creatinine for GFR 0.70 mg/dL 0.55-1.30 Creatinine for GF R [facility] ([facility]) potassium serum 3.9 mEq/L 3.5-5.1 Potassium Serum ATHE NA ([facility]) glomerular filtration rate > 60.0 >39 Glomerula r Filtration Rate [facility] ([facility]) sodium level 142 mEq/L 136-145 Sodium Level [facility] (No [facility]) chloride level 109 mEq/L 98-107 Above high normal Chloride Level [facility] ([facility]) carbon dioxide level 29 mEq/L 21-32 Carbon Dioxide Level [facility] ([facility]) anion gap 4 mEq/L 8-16 Below low normal Anion Gap [facility] ( [facility]) calcium level 8.2 mg/dL 8.8-10.2 Below low normal Calcium Level AT [facility] ([facility]) ID Date Data Source [id number] 03/20/2021 10:59:00 PM EDT [facility] ([facility]) Name Value Range Interpretation Code Description Data Romy rce(s) Supporting Document(s) white blood count 3.9 10 4.0-10.0 Below low normal White Blood Count [facility] ([facility]) hemoglobin 9.5 g/dL 12.0-15.5 Below low normal Hemoglobin [facility] ( [facility]) red blood count 3.39 10 4.00-5.40 Below low normal Red Blood Coun t [facility] ([facility]) mean corpuscular volume 85.3 fL 80.0-96.0 Mean Corpusc ular Volume [facility] ([facility]) hematocrit 28.9 % 36.0-47.0 Below low normal Hematocrit [facility] ( [facility]) mean corpuscular hemoglobin 28.0 pg 27.0-33.0 Mean Cor puscular Hemoglobin [facility] ([facility]) mean corpuscular HGB conc 32.9 g/dL 32.0-36.5 Mean Corpu scular HGB Conc [facility] ([facility]) red cell distribution width 14.2 % 11.5-14.5 Red Cell Distribution Width [facility] ([facility]) platelet count, automated 111 10 150-450 Below low marlon l Platelet Count, Automated [facility] ([facility]) nucleated red blood cell % 0.0 % 0-0 Nucleated Red Blood Cell % [facility] ([facility]) ID Date Data Source [id number] 03/20/2021 10:59:00 PM EDT [facility]) Name Value Range Interpretation Code Description Data Romy rce(s) Supporting Document(s) troponin I < 0.02 < 0.10 Troponin I [facility]) ID Date Data Source [id number] 03/20/2021 10:59:00 PM EDT [facility]) Name Value Range Interpretation Code Description Data Romy rce(s) Supporting Document(s) creatinine for GFR 0.70 mg/dL 0.55-1.30 Creatinine for GF R [facility] ([facility]) glucose, fasting 150 mg/dL 70-100 Above high normal Glucose, Fas ting [facility] ([facility]) blood urea nitrogen 12 mg/dL 7-18 Blood Urea Nitro gen [facility] ([facility]) sodium level 142 mEq/L 136-145 Sodium Level [facility] (No [facility]) glomerular filtration rate > 60.0 >39 Glomerula r Filtration Rate [facility] ([facility]) potassium serum 3.9 mEq/L 3.5-5.1 Potassium Serum ATH NA ([facility]) chloride level 109 mEq/L 98-107 Above high normal Chloride Level [facility] ([facility]) carbon dioxide level 29 mEq/L 21-32 Carbon Dioxide Level [facility] ([facility]) calcium level 8.2 mg/dL 8.8-10.2 Below low normal Calcium Level AT [facility] ([facility]) anion gap 4 mEq/L 8-16 Below low normal Anion Gap [facility] ( [facility]) ID Date Data Source [id number] 03/20/2021 10:59:00 PM EDT [facility] ([facility]) Name Value Range Interpretation Code Description Data Romy rce(s) Supporting Document(s) red blood count 3.39 10 4.00-5.40 Below low normal Red Blood Coun t [facility] ([facility]) white blood count 3.9 10 4.0-10.0 Below low normal White Blood Count [facility] ([facility]) hemoglobin 9.5 g/dL 12.0-15.5 Below low normal Hemoglobin [facility] ( [facility]) hematocrit 28.9 % 36.0-47.0 Below low normal Hematocrit [facility] ( [facility]) mean corpuscular volume 85.3 fL 80.0-96.0 Mean Corpusc ular Volume [facility] ([facility]) mean corpuscular HGB conc 32.9 g/dL 32.0-36.5 Mean Corpu scular HGB Conc [facility] ([facility]) red cell distribution width 14.2 % 11.5-14.5 Red Cell Distribution Width [facility] ([facility]) mean corpuscular hemoglobin 28.0 pg 27.0-33.0 Mean Cor puscular Hemoglobin [facility] ([facility]) platelet count, automated 111 10 150-450 Below low marlon l Platelet Count, Automated [facility] ([facility]) nucleated red blood cell % 0.0 % 0-0 Nucleated Red Blood Cell % [facility] ([facility]) ID Date Data Source [id number] 03/20/2021 10:25:00 PM EDT [facility] ([facility]) Name Value Range Interpretation Code Description Data Romy rce(s) Supporting Document(s) bedside glucose 151 mg/dL 83-110 Above high normal Bedside Gluco se [facility]) ID Date Data Source [id number] 03/20/2021 10:25:00 PM EDT [facility] ([facility]) Name Value Range Interpretation Code Description Data Romy rce(s) Supporting Document(s) bedside glucose 151 mg/dL 83-110 Above high normal Bedside Gluco se [facility] ([facility]) ID Date Data Source [id number] 03/20/2021 10:25:00 PM EDT [facility] ([facility]) Name Value Range Interpretation Code Description Data Romy rce(s) Supporting Document(s) bedside glucose 151 mg/dL 83-110 Above high normal Bedside Gluco se [facility] ([facility]) ID Date Data Source [id number] 03/20/2021 10:25:00 PM EDT [facility] ([facility]) Name Value Range Interpretation Code Description Data Romy rce(s) Supporting Document(s) bedside glucose 151 mg/dL 83-110 Above high normal Bedside Gluco se [facility] ([facility]) ID Date Data Source [id number] 03/20/2021 05:56:00 PM EDT [facility]) Name Value Range Interpretation Code Description Data Romy rce(s) Supporting Document(s) glucose, fasting 150 mg/dL 70-100 Above high normal Glucose, Fas ting [facility] ([facility]) blood urea nitrogen 10 mg/dL 7-18 Blood Urea Nitro gen [facility] ([facility]) creatinine for GFR 0.67 mg/dL 0.55-1.30 Creatinine for GF R [facility] ([facility]) glomerular filtration rate > 60.0 >39 Glomerula r Filtration Rate [facility] ([facility]) sodium level 140 mEq/L 136-145 Sodium Level [facility] (No [facility]) potassium serum 3.7 mEq/L 3.5-5.1 Potassium Serum ATHE NA ([facility]) chloride level 108 mEq/L 98-107 Above high normal Chloride Level [facility] ([facility]) carbon dioxide level 24 mEq/L 21-32 Carbon Dioxide Level [facility] ([facility]) anion gap 8 mEq/L 8-16 Anion Gap [facility] ([facility]) calcium level 8.7 mg/dL 8.8-10.2 Below low normal Calcium Level AT [facility] ([facility]) AST/SGOT 15 U/L 7-37 AST/SGOT [facility] ([facility]) ALT/SGPT 14 U/L 12-78 ALT/SGPT [facility] ([facility]) alkaline phosphatase 60 U/L 45-117 Alkaline Phosph atase [facility] ([facility]) bilirubin,total 0.5 mg/dL 0.2-1.0 Bilirubin,total AT[facility] ([facility]) total protein 7.8 gm/dL 6.4-8.2 Total Protein [facility] ( [facility]) albumin 3.0 gm/dL 3.2-5.2 Below low normal Albumin [facility] ( [facility]) albumin/globulin ratio 1.2-2.2 Below low normal Albumin /globulin Ratio [facility] ([facility]) ID Date Data Source [id number] 03/20/2021 05:56:00 PM EDT [facility] ([facility]) Name Value Range Interpretation Code Description Data Romy rce(s) Supporting Document(s) thyroid stimulating hormone 1.890 uIU/mL 0.358-3.740 Thyroid Stimulating Hormone [facility] ([facility]) ID Date Data Source [id number] 03/20/2021 05:56:00 PM EDT [facility] ([facility]) Name Value Range Interpretation Code Description Data Romy rce(s) Supporting Document(s) troponin I < 0.02 < 0.10 Troponin I [facility] ([facility]) ID Date Data Source [id number] 03/20/2021 05:56:00 PM EDT [facility] ([facility]) Name Value Range Interpretation Code Description Data Romy rce(s) Supporting Document(s) partial thromboplastin time 33.1 seconds 24.2-38.5 Partial Thromboplastin Time [facility] ([facility]) ID Date Data Source [id number] 03/20/2021 05:56:00 PM EDT [facility] ([facility]) Name Value Range Interpretation Code Description Data Romy rce(s) Supporting Document(s) INR Inr [facility] ([facility]) prothrombin time 15.6 seconds 12.5-14.3 Above high normal Prothrombi n Time [facility] ([facility]) ID Date Data Source [id number] 03/20/2021 05:56:00 PM EDT [facility] ([facility]) Name Value Range Interpretation Code Description Data Romy rce(s) Supporting Document(s) white blood count 4.0 10 4.0-10.0 White Blood Count [facility] ([facility]) hemoglobin 10.7 g/dL 12.0-15.5 Below low normal Hemoglobin [facility] ( [facility]) red blood count 3.88 10 4.00-5.40 Below low normal Red Blood Coun t [facility] ([facility]) hematocrit 32.4 % 36.0-47.0 Below low normal Hematocrit [facility] ( [facility]) mean corpuscular volume 83.5 fL 80.0-96.0 Mean Corpusc ular Volume [facility] ([facility]) mean corpuscular hemoglobin 27.6 pg 27.0-33.0 Mean Cor puscular Hemoglobin [facility] ([facility]) mean corpuscular HGB conc 33.0 g/dL 32.0-36.5 Mean Corpu scular HGB Conc [facility] ([facility]) red cell distribution width 14.2 % 11.5-14.5 Red Cell Distribution Width [facility] ([facility]) nucleated red blood cell % 0.0 % 0-0 Nucleated Red Blood Cell % [facility] ([facility]) platelet count, automated 137 10 150-450 Below low marlon l Platelet Count, Automated [facility] ([facility]) ID Date Data Source [id number] 03/20/2021 05:56:00 PM EDT [facility] ([facility]) Name Value Range Interpretation Code Description Data Romy rce(s) Supporting Document(s) glucose, fasting 150 mg/dL 70-100 Above high normal Glucose, Fas ting [facility] ([facility]) blood urea nitrogen 10 mg/dL 7-18 Blood Urea Nitro gen [facility] ([facility]) glomerular filtration rate > 60.0 >39 Glomerula r Filtration Rate [facility] ([facility]) creatinine for GFR 0.67 mg/dL 0.55-1.30 Creatinine for GF R [facility] ([facility]) sodium level 140 mEq/L 136-145 Sodium Level [facility] (No [facility]) potassium serum 3.7 mEq/L 3.5-5.1 Potassium Serum ATHE NA ([facility]) chloride level 108 mEq/L 98-107 Above high normal Chloride Level [facility] ([facility]) anion gap 8 mEq/L 8-16 Anion Gap [facility] ([facility]) carbon dioxide level 24 mEq/L 21-32 Carbon Dioxide Level [facility] ([facility]) calcium level 8.7 mg/dL 8.8-10.2 Below low normal Calcium Level AT [facility]) AST/SGOT 15 U/L 7-37 AST/SGOT [facility] ([facility]) ALT/SGPT 14 U/L 12-78 ALT/SGPT [facility] ([facility]) alkaline phosphatase 60 U/L 45-117 Alkaline Phosph atase [facility] ([facility]) bilirubin,total 0.5 mg/dL 0.2-1.0 Bilirubin,total AT[facility] ([facility]) total protein 7.8 gm/dL 6.4-8.2 Total Protein [facility] ( [facility]) albumin/globulin ratio 1.2-2.2 Below low normal Albumin /globulin Ratio [facility] ([facility]) albumin 3.0 gm/dL 3.2-5.2 Below low normal Albumin [facility] ( [facility]) ID Date Data Source [id number] 03/20/2021 05:56:00 PM EDT [facility]) Name Value Range Interpretation Code Description Data Romy rce(s) Supporting Document(s) thyroid stimulating hormone 1.890 uIU/mL 0.358-3.740 Thyroid Stimulating Hormone [facility] ([facility]) ID Date Data Source [id number] 03/20/2021 05:56:00 PM EDT [facility]) Name Value Range Interpretation Code Description Data Romy rce(s) Supporting Document(s) troponin I < 0.02 < 0.10 Troponin I [facility]) ID Date Data Source [id number] 03/20/2021 05:56:00 PM EDT [facility]) Name Value Range Interpretation Code Description Data Romy rce(s) Supporting Document(s) partial thromboplastin time 33.1 seconds 24.2-38.5 Partial Thromboplastin Time [facility] ([facility]) ID Date Data Source [id number] 03/20/2021 05:56:00 PM EDT [facility]) Name Value Range Interpretation Code Description Data Romy rce(s) Supporting Document(s) prothrombin time 15.6 seconds 12.5-14.3 Above high normal Prothrombi n Time [facility] ([facility]) INR Inr [facility] ([facility]) ID Date Data Source [id number] 03/20/2021 05:56:00 PM EDT [facility]) Name Value Range Interpretation Code Description Data Romy rce(s) Supporting Document(s) red blood count 3.88 10 4.00-5.40 Below low normal Red Blood Coun t [facility] ([facility]) white blood count 4.0 10 4.0-10.0 White Blood Count [facility] ([facility]) hemoglobin 10.7 g/dL 12.0-15.5 Below low normal Hemoglobin [facility] ( [facility]) hematocrit 32.4 % 36.0-47.0 Below low normal Hematocrit [facility] ( [facility]) mean corpuscular hemoglobin 27.6 pg 27.0-33.0 Mean Cor puscular Hemoglobin [facility] ([facility]) mean corpuscular volume 83.5 fL 80.0-96.0 Mean Corpusc ular Volume [facility] ([facility]) red cell distribution width 14.2 % 11.5-14.5 Red Cell Distribution Width [facility] ([facility]) mean corpuscular HGB conc 33.0 g/dL 32.0-36.5 Mean Corpu scular HGB Conc [facility] ([facility]) platelet count, automated 137 10 150-450 Below low marlon l Platelet Count, Automated [facility] ([facility]) nucleated red blood cell % 0.0 % 0-0 Nucleated Red Blood Cell % [facility] ([facility]) ID Date Data Source [id number] 03/20/2021 05:56:00 PM EDT [facility] ([facility]) Name Value Range Interpretation Code Description Data Romy rce(s) Supporting Document(s) blood urea nitrogen 10 mg/dL 7-18 Blood Urea Nitro gen [facility] ([facility]) glucose, fasting 150 mg/dL 70-100 Above high normal Glucose, Fas ting [facility] ([facility]) creatinine for GFR 0.67 mg/dL 0.55-1.30 Creatinine for GF R [facility] ([facility]) glomerular filtration rate > 60.0 >39 Glomerula r Filtration Rate [facility] ([facility]) sodium level 140 mEq/L 136-145 Sodium Level [facility] (No [facility]) potassium serum 3.7 mEq/L 3.5-5.1 Potassium Serum ATHE NA ([facility]) chloride level 108 mEq/L 98-107 Above high normal Chloride Level [facility] [facility] anion gap 8 mEq/L 8-16 Anion Gap [place] ([facility]) carbon dioxide level 24 mEq/L 21-32 Carbon Dioxide Level [place] ([facility]) calcium level 8.7 mg/dL 8.8-10.2 Below low normal Calcium Level AT [place]IP[place] ([facility]) AST/SGOT 15 U/L 7-37 AST/SGOT [place] ([facility]) ALT/SGPT 14 U/L 12-78 ALT/SGPT [place] ([facility]) alkaline phosphatase 60 U/L 45-117 Alkaline Phosph atase [place] ([facility]) total protein 7.8 gm/dL 6.4-8.2 Total Protein [place] ( [facility]) bilirubin,total 0.5 mg/dL 0.2-1.0 Bilirubin,total ATHE ([facility]) albumin 3.0 gm/dL 3.2-5.2 Below low normal Albumin [place] ( [facility]) albumin/globulin ratio 1.2-2.2 Below low normal Albumin /globulin Ratio [place] ([facility]) ID Date Data Source [id number] 03/20/2021 05:56:00 PM EDT [place] ([facility]) Name Value Range Interpretation Code Description Data Romy rce(s) Supporting Document(s) thyroid stimulating hormone 1.890 uIU/mL 0.358-3.740 Thyroid Stimulating Hormone [place] ([facility]) ID Date Data Source [id number] 03/20/2021 05:56:00 PM EDT [place] ([facility]) Name Value Range Interpretation Code Description Data Romy rce(s) Supporting Document(s) troponin I < 0.02 < 0.10 Troponin I [place] ([facility]) ID Date Data Source [id number] 03/20/2021 05:56:00 PM EDT [place] ([facility]) Name Value Range Interpretation Code Description Data Romy rce(s) Supporting Document(s) partial thromboplastin time 33.1 seconds 24.2-38.5 Partial Thromboplastin Time [place] ([facility]) ID Date Data Source [id number] 03/20/2021 05:56:00 PM EDT [place] ([facility]) Name Value Range Interpretation Code Description Data Romy rce(s) Supporting Document(s) prothrombin time 15.6 seconds 12.5-14.3 Above high normal Prothrombi n Time [place] ([facility]) INR Inr [place] ([facility]) ID Date Data Source [id number] 03/20/2021 05:56:00 PM EDT [place] ([facility]) Name Value Range Interpretation Code Description Data Romy rce(s) Supporting Document(s) white blood count 4.0 10 4.0-10.0 White Blood Count [place] ([facility]) red blood count 3.88 10 4.00-5.40 Below low normal Red Blood Coun t [place] ([facility]) hematocrit 32.4 % 36.0-47.0 Below low normal Hematocrit [place] ( [facility]) hemoglobin 10.7 g/dL 12.0-15.5 Below low normal Hemoglobin [place] ( [facility]) mean corpuscular hemoglobin 27.6 pg 27.0-33.0 Mean Cor puscular Hemoglobin [place] ([facility]) mean corpuscular volume 83.5 fL 80.0-96.0 Mean Corpusc ular Volume [place] ([facility]) red cell distribution width 14.2 % 11.5-14.5 Red Cell Distribution Width [place] ([facility]) mean corpuscular HGB conc 33.0 g/dL 32.0-36.5 Mean Corpu scular HGB Conc [place] ([facility]) platelet count, automated 137 10 150-450 Below low marlon l Platelet Count, Automated [place] ([facility]) nucleated red blood cell % 0.0 % 0-0 Nucleated Red Blood Cell % [place] ([facility]) ID Date Data Source [id number] 03/20/2021 05:56:00 PM EDT [place] ([facility]) Name Value Range Interpretation Code Description Data Romy rce(s) Supporting Document(s) glucose, fasting 150 mg/dL 70-100 Above high normal Glucose, Fas ting [place] ([facility]) blood urea nitrogen 10 mg/dL 7-18 Blood Urea Nitro gen [place] ([facility]) glomerular filtration rate > 60.0 >39 Glomerula r Filtration Rate [place] ([facility]) creatinine for GFR 0.67 mg/dL 0.55-1.30 Creatinine for GF R [place] ([facility]) sodium level 140 mEq/L 136-145 Sodium Level [place] ([facility]) potassium serum 3.7 mEq/L 3.5-5.1 Potassium Serum ATHE NA ([facility]) chloride level 108 mEq/L 98-107 Above high normal Chloride Level [place] ([facility]) carbon dioxide level 24 mEq/L 21-32 Carbon Dioxide Level [place] ([facility]) AST/SGOT 15 U/L 7-37 AST/SGOT [place] ([facility]) anion gap 8 mEq/L 8-16 Anion Gap [place] ([facility]) calcium level 8.7 mg/dL 8.8-10.2 Below low normal Calcium Level AT [place] ([facility]) alkaline phosphatase 60 U/L 45-117 Alkaline Phosph atase [place] ([facility]) ALT/SGPT 14 U/L 12-78 ALT/SGPT [place] ([facility]) bilirubin,total 0.5 mg/dL 0.2-1.0 Bilirubin,total ATHE NA ([facility]) albumin 3.0 gm/dL 3.2-5.2 Below low normal Albumin [place] ( [facility]) total protein 7.8 gm/dL 6.4-8.2 Total Protein [place] ( [facility]) albumin/globulin ratio 1.2-2.2 Below low normal Albumin /globulin Ratio [place] ([facility]) ID Date Data Source [id number] 03/20/2021 05:56:00 PM EDT [place] ([facility]) Name Value Range Interpretation Code Description Data Romy rce(s) Supporting Document(s) thyroid stimulating hormone 1.890 uIU/mL 0.358-3.740 Thyroid Stimulating Hormone [place] ([facility]) ID Date Data Source [id number] 03/20/2021 05:56:00 PM EDT [place] ([facility]) Name Value Range Interpretation Code Description Data Romy rce(s) Supporting Document(s) troponin I < 0.02 < 0.10 Troponin I [place] ([facility]) ID Date Data Source [id number] 03/20/2021 05:56[facility]00 [facility] Name Value Range Interpretation Code Description Data Romy rce(s) Supporting Document(s) partial thromboplastin time 33.1 seconds 24.2-38.5 Partial Thromboplastin Time [place] ([facility]) ID Date Data Source [id number] 03/20/2021 05:56:00 PM EDT [place] ([facility]) Name Value Range Interpretation Code Description Data Romy rce(s) Supporting Document(s) prothrombin time 15.6 seconds 12.5-14.3 Above high normal Prothrombi n Time [place] ([facility]) INR Inr [place] ([facility]) ID Date Data Source [id number] 03/20/2021 05:56[facility]00 [facility] Name Value Range Interpretation Code Description Data Romy rce(s) Supporting Document(s) white blood count 4.0 10 4.0-10.0 White Blood Count [place] ([facility]) hemoglobin 10.7 g/dL 12.0-15.5 Below low normal Hemoglobin [place] ( [facility]) red blood count 3.88 10 4.00-5.40 Below low normal Red Blood Coun t [place] ([facility]) mean corpuscular volume 83.5 fL 80.0-96.0 Mean Corpusc ular Volume [place] ([facility]) hematocrit 32.4 % 36.0-47.0 Below low normal Hematocrit [place] ( [facility]) mean corpuscular hemoglobin 27.6 pg 27.0-33.0 Mean Cor puscular Hemoglobin [place] ([facility]) mean corpuscular HGB conc 33.0 g/dL 32.0-36.5 Mean Corpu scular HGB Conc [place] ([facility]) red cell distribution width 14.2 % 11.5-14.5 Red Cell Distribution Width [place] ([facility]) nucleated red blood cell % 0.0 % 0-0 Nucleated Red Blood Cell % [place] ([facility]) platelet count, automated 137 10 150-450 Below low marlon l Platelet Count, Automated [place] ([facility]) ID Date Data Source [id number] 03/20/2021 09:34:00 AM EDT [place] ([facility]) Name Value Range Interpretation Code Description Data Romy rce(s) Supporting Document(s) glucose, fasting 127 mg/dL 70-100 Above high normal Glucose, Fas ting [place] ([facility]) creatinine for GFR 0.76 mg/dL 0.55-1.30 Creatinine for GF R [place] ([facility]) blood urea nitrogen 14 mg/dL 7-18 Blood Urea Nitro gen [place] ([facility]) glomerular filtration rate > 60.0 >39 Glomerula r Filtration Rate [place] ([facility]) sodium level 139 mEq/L 136-145 Sodium Level [place] ([facility]) chloride level 107 mEq/L 98-107 Chloride Level [place] ([facility]) potassium serum 3.5 mEq/L 3.5-5.1 Potassium Serum ATHE NA ([facility]) carbon dioxide level 27 mEq/L 21-32 Carbon Dioxide Level [place] ([facility]) anion gap 5 mEq/L 8-16 Below low normal Anion Gap [place] ( [facility]) calcium level 9.7 mg/dL 8.8-10.2 Calcium Level [place] ( [facility]) ID Date Data Source [id number] 03/20/2021 09:34:00 AM EDT [place] ([facility]) Name Value Range Interpretation Code Description Data Romy rce(s) Supporting Document(s) white blood count 3.7 10 4.0-10.0 Below low normal White Blood Count [place] ([facility]) red blood count 3.93 10 4.00-5.40 Below low normal Red Blood Coun t [place] ([facility]) hemoglobin 10.6 g/dL 12.0-15.5 Below low normal Hemoglobin [place] ( [facility]) hematocrit 33.9 % 36.0-47.0 Below low normal Hematocrit [place] ( [facility]) mean corpuscular volume 86.3 fL 80.0-96.0 Mean Corpusc ular Volume [place] ([facility]) mean corpuscular HGB conc 31.3 g/dL 32.0-36.5 Below low marlon l Mean Corpuscular HGB Conc [place] ([facility]) mean corpuscular hemoglobin 27.0 pg 27.0-33.0 Mean Cor puscular Hemoglobin [place] ([facility]) platelet count, automated 132 10 150-450 Below low marlon l Platelet Count, Automated [place] ([facility]) red cell distribution width 14.1 % 11.5-14.5 Red Cell Distribution Width [place] ([facility]) nucleated red blood cell % 0.0 % 0-0 Nucleated Red Blood Cell % [place] ([facility]) ID Date Data Source [id number] 03/20/2021 09:34:00 AM EDT [place] ([facility]) Name Value Range Interpretation Code Description Data Romy rce(s) Supporting Document(s) blood urea nitrogen 14 mg/dL 7-18 Blood Urea Nitro gen [place] ([facility]) glucose, fasting 127 mg/dL 70-100 Above high normal Glucose, Fas ting [place] ([facility]) creatinine for GFR 0.76 mg/dL 0.55-1.30 Creatinine for GF R [place] ([facility]) glomerular filtration rate > 60.0 >39 Glomerula r Filtration Rate [place] ([facility]) sodium level 139 mEq/L 136-145 Sodium Level [place] (No [facility]) potassium serum 3.5 mEq/L 3.5-5.1 Potassium Serum ATHE NA ([facility]) chloride level 107 mEq/L 98-107 Chloride Level [place] ([facility]) carbon dioxide level 27 mEq/L 21-32 Carbon Dioxide Level [place] ([facility]) calcium level 9.7 mg/dL 8.8-10.2 Calcium Level [place] ( [facility]) anion gap 5 mEq/L 8-16 Below low normal Anion Gap [place] ( [facility]) ID Date Data Source [id number] 03/20/2021 09:34:00 AM EDT [place] ([facility]) Name Value Range Interpretation Code Description Data Romy rce(s) Supporting Document(s) white blood count 3.7 10 4.0-10.0 Below low normal White Blood Count [place] ([facility]) red blood count 3.93 10 4.00-5.40 Below low normal Red Blood Coun t [place] ([facility]) hemoglobin 10.6 g/dL 12.0-15.5 Below low normal Hemoglobin [place] ( [facility]) hematocrit 33.9 % 36.0-47.0 Below low normal Hematocrit [place] ( [facility]) mean corpuscular hemoglobin 27.0 pg 27.0-33.0 Mean Cor puscular Hemoglobin [place] ([facility]) mean corpuscular volume 86.3 fL 80.0-96.0 Mean Corpusc ular Volume [place] ([facility]) mean corpuscular HGB conc 31.3 g/dL 32.0-36.5 Below low marlon l Mean Corpuscular HGB Conc [place] ([facility]) red cell distribution width 14.1 % 11.5-14.5 Red Cell Distribution Width [place] ([facility]) nucleated red blood cell % 0.0 % 0-0 Nucleated Red Blood Cell % [place] ([facility]) platelet count, automated 132 10 150-450 Below low marlon l Platelet Count, Automated [place] ([facility]) ID Date Data Source [id number] 03/20/2021 09:34:00 AM EDT [place] ([facility]) Name Value Range Interpretation Code Description Data Romy rce(s) Supporting Document(s) glucose, fasting 127 mg/dL 70-100 Above high normal Glucose, Fas ting [place] ([facility]) creatinine for GFR 0.76 mg/dL 0.55-1.30 Creatinine for GF R [place] ([facility]) blood urea nitrogen 14 mg/dL 7-18 Blood Urea Nitro gen [place] ([facility]) glomerular filtration rate > 60.0 >39 Glomerula r Filtration Rate [place] ([facility]) sodium level 139 mEq/L 136-145 Sodium Level [place] (No [facility]) chloride level 107 mEq/L 98-107 Chloride Level [place] ([facility]) potassium serum 3.5 mEq/L 3.5-5.1 Potassium Serum ATH NA ([facility]) carbon dioxide level 27 mEq/L 21-32 Carbon Dioxide Level [place] ([facility]) anion gap 5 mEq/L 8-16 Below low normal Anion Gap [place] ( [facility]) calcium level 9.7 mg/dL 8.8-10.2 Calcium Level [place] ( [facility]) ID Date Data Source [id number] 03/20/2021 09:34:00 AM EDT [place] ([facility]) Name Value Range Interpretation Code Description Data Romy rce(s) Supporting Document(s) white blood count 3.7 10 4.0-10.0 Below low normal White Blood Count [place] ([facility]) hemoglobin 10.6 g/dL 12.0-15.5 Below low normal Hemoglobin [place] ( [facility]) red blood count 3.93 10 4.00-5.40 Below low normal Red Blood Coun t [place] ([facility]) mean corpuscular volume 86.3 fL 80.0-96.0 Mean Corpusc ular Volume [place] ([facility]) hematocrit 33.9 % 36.0-47.0 Below low normal Hematocrit [place] ( [facility]) mean corpuscular hemoglobin 27.0 pg 27.0-33.0 Mean Cor puscular Hemoglobin [place] ([facility]) mean corpuscular HGB conc 31.3 g/dL 32.0-36.5 Below low marlon l Mean Corpuscular HGB Conc [place] ([facility]) red cell distribution width 14.1 % 11.5-14.5 Red Cell Distribution Width [place] ([facility]) nucleated red blood cell % 0.0 % 0-0 Nucleated Red Blood Cell % [place] ([facility]) platelet count, automated 132 10 150-450 Below low marlon l Platelet Count, Automated [place] ([facility]) ID Date Data Source [id number] 03/20/2021 09:34:00 AM EDT [place] ([facility]) Name Value Range Interpretation Code Description Data Romy rce(s) Supporting Document(s) glucose, fasting 127 mg/dL 70-100 Above high normal Glucose, Fas ting [place] ([facility]) blood urea nitrogen 14 mg/dL 7-18 Blood Urea Nitro gen [place] ([facility]) glomerular filtration rate > 60.0 >39 Glomerula r Filtration Rate [place] ([facility]) creatinine for GFR 0.76 mg/dL 0.55-1.30 Creatinine for GF R [place] ([facility]) sodium level 139 mEq/L 136-145 Sodium Level [place] (No [facility]) potassium serum 3.5 mEq/L 3.5-5.1 Potassium Serum ATH NA ([facility]) chloride level 107 mEq/L 98-107 Chloride Level [place] ([facility]) carbon dioxide level 27 mEq/L 21-32 Carbon Dioxide Level [place] ([facility]) anion gap 5 mEq/L 8-16 Below low normal Anion Gap [place] ( [facility]) calcium level 9.7 mg/dL 8.8-10.2 Calcium Level [place] ( [facility]) ID Date Data Source [id number] 03/20/2021 09:34:00 AM EDT [place] ([facility]) Name Value Range Interpretation Code Description Data Romy rce(s) Supporting Document(s) white blood count 3.7 10 4.0-10.0 Below low normal White Blood Count [place] ([facility]) red blood count 3.93 10 4.00-5.40 Below low normal Red Blood Coun t [place] ([facility]) hematocrit 33.9 % 36.0-47.0 Below low normal Hematocrit [place] ( [facility]) hemoglobin 10.6 g/dL 12.0-15.5 Below low normal Hemoglobin [place] ( [facility]) mean corpuscular volume 86.3 fL 80.0-96.0 Mean Corpusc ular Volume [place] ([facility]) mean corpuscular hemoglobin 27.0 pg 27.0-33.0 Mean Cor puscular Hemoglobin [place] ([facility]) mean corpuscular HGB conc 31.3 g/dL 32.0-36.5 Below low marlon l Mean Corpuscular HGB Conc [place] ([facility]) red cell distribution width 14.1 % 11.5-14.5 Red Cell Distribution Width [place] ([facility]) nucleated red blood cell % 0.0 % 0-0 Nucleated Red Blood Cell % [place] ([facility]) platelet count, automated 132 10 150-450 Below low marlon l [facility] Date Data Source [id number] 02/24/2021 09:14:00 AM EDT [facility]) Name Value Range Interpretation Code Description Data Romy rce(s) Supporting Document(s) Hemoglobin A1c/Hemoglobin.total in Blood 7.2 %_of_total_HGB <5.7 Above high normal Hemoglobin a1C [place] ([facility]) ID Date Data Source [id number] 02/24/2021 09:14:00 AM EDT [place] ([facility]) Name Value Range Interpretation Code Description Data Romy rce(s) Supporting Document(s) Calcidiol [Mass/volume] in Serum or Plasma 29 NG/mL 30-100 Below low normal Vitamin D,25-Oh,total,ia [place] ([facility]) ID Date Data Source [id number] 02/24/2021 09:14:00 AM EDT [place] ([facility]) Name Value Range Interpretation Code Description Data Romy rce(s) Supporting Document(s) Cobalamin (Vitamin B12) [Mass/volume] in Serum or Plasma 1158 pg /mL 200-1100 Above high normal Vitamin B12 [place] ([facility]) Folate [Mass/volume] in Serum or Plasma 13.6 NG/mL Folate, Serum [place] ([facility]) ID Date Data Source [id number] 02/24/2021 09:14:00 AM EDT [place] ([facility]) Name Value Range Interpretation Code Description Data Romy rce(s) Supporting Document(s) Leukocytes [#/volume] in Blood by Automated count 3.8 thousand/uL 3 .8-10.8 White Blood Cell Count [place] ([facility]) Hematocrit [Volume Fraction] of Blood by Automated count 30.5 % 35.0-45.0 Below low normal Hematocrit [place] ([facility]) Erythrocyte mean corpuscular volume [Entitic volume] by Auto mated count 81.1 fL 80.0-100.0 Mcv [place] ([facility]) Erythrocytes [#/volume] in Blood by Automated count 3.76 million /uL 3.80-5.10 Below low normal Red Blood Cell Count [place] ([facility]) Erythrocyte mean corpuscular hemoglobin [Entitic mass] by Automated count 27.7 pg 27.0-33.0 Mch [place] ([facility]) Hemoglobin [Mass/volume] in Blood 10.4 g/dL 11.7-15.5 Below l ow normal Hemoglobin [place] ([facility]) Platelets [#/volume] in Blood by Automated count 158 thousand/uL 14 0-400 Platelet Count [place] ([facility]) Erythrocyte distribution width [Ratio] by Automated count 13.4 % 11.0-15.0 Rdw [place] ([facility]) Erythrocyte mean corpuscular hemoglobin concentration [Mass/volume] by Automated count 34.1 g/dL 32.0-36.0 Mchc [place] ([facility]) Platelet mean volume [Entitic volume] in Blood by Marcelino-Deidre 10.4 f L 7.5-12.5 Mpv [place] ([facility]) Monocytes [#/volume] in Blood by Automated count 369 cells/uL 200-9 50 Absolute Monocytes [place] ([facility]) Eosinophils [#/volume] in Blood by Automated count 407 cells/uL 15- 500 Absolute Eosinophils [place] ([facility]) Neutrophils [#/volume] in Blood by Automated count 1782 cells/uL 15 00-7800 Absolute Neutrophils [place] ([facility]) Lymphocytes [#/volume] in Blood by Automated count 1212 cells/uL 85 0-3900 Absolute Lymphocytes [place] ([facility]) Neutrophils/100 leukocytes in Blood by Automated count 46.9 % 38-80 Neutrophils [place] ([facility]) Basophils [#/volume] in Blood by Automated count 30 cells/uL 0-200 Absolute Basophils [place] ([facility]) Eosinophils/100 leukocytes in Blood by Automated count 10.7 % 0-8 Above high normal Eosinophils [facility] ([facility]) Lymphocytes/100 leukocytes in Blood by Automated count 31.9 % 15-49 Lymphocytes [place] ([facility]) Monocytes/100 leukocytes in Blood by Automated count 9.7 % 0-13 Monocytes [place] ([facility]) Basophils/100 leukocytes in Blood by Automated count 0.8 % 0-2 Basophils [place] ([facility]) ID Date Data Source [id number] 02/24/2021 09:14:00 AM EDT [place] ([facility]) Name Value Range Interpretation Code Description Data Romy rce(s) Supporting Document(s) Glucose [Mass/volume] in Serum or Plasma 165 mg/dL 65-99 Above high normal Glucose [place] ([facility]) Urea nitrogen [Mass/volume] in Serum or Plasma 15 mg/dL 7-25 Urea Nitrogen (BUN) [place] ([facility]) Glomerular filtration rate/1.73 sq M.pre dicted among blacks [Volume Rate/Area] in Serum, Plasma or Blood by Creatinine-based formula (CKD-EPI) 100 mL/min/1.73m2 > or = 60 eGFR [place] ([facility]) Glomerular filtration rate/1.73 sq M.pre dicted among non-blacks [Volume Rate/Area] in Serum, Plasma or Blood by Creatinine-based formula (CKD-EPI) 87 mL/min/1.73m2 > or = 60 eGFR Non-afr. [place] ([facility]) Creatinine [Mass/volume] in Serum or Plasma 0.64 mg/dL 0.60-0.93 Creatinine [place] ([facility]) Potassium [Moles/volume] in Serum or Plasma 4.0 mmol/L 3.5-5.3 Potassium [place] ([facility]) Chloride [Moles/volume] in Serum or Plasma 104 mmol/L 98-110 Chloride [place] ([facility]) Sodium [Moles/volume] in Serum or Plasma 137 mmol/L 135-146 Sodium [place] ([facility]) Urea nitrogen/Creatinine [Mass Ratio] in Serum or Plasma not applic able 6-22 [facility]inine [facility] Protein [Mass/volume] in Serum or Plasma 7.8 g/dL 6.1-8.1 Protein, Total [place] ([facility]) Calcium [Mass/volume] in Serum or Plasma 9.2 mg/dL 8.6-10.4 Calcium [place] ([facility]) Carbon dioxide, total [Moles/volume] in Serum or Plasma 26 mmol/L 20-32 Carbon Dioxide [place] ([facility]) Bilirubin.total [Mass/volume] in Serum or Plasma 0.4 mg/dL 0.2-1 .2 Bilirubin, Total [place] ([facility]) Albumin [Mass/volume] in Serum or Plasma 3.7 g/dL 3.6-5.1 Albumin [place] ([facility]) Albumin/Globulin [Mass Ratio] in Serum or Plasma 0.9 (calc) 1.0-2.5 Below low normal Albumin/globulin Ratio [facility] ([facility]) Globulin [Mass/volume] in Serum by calculation 4.1 g/dL_(calc) 1 .9-3.7 Above high normal Globulin [place] ([facility]) Aspartate aminotransferase [Enzymatic activity/volume] in Serum or Plasma 13 U/L 10-35 Ast [place] ([facility]) Alkaline phosphatase [Enzymatic activity/volume] in Serum or Plasma 57 U/L 37-153 Alkaline Phosphatase [place] ([facility]) Alanine aminotransferase [Enzymatic activity/volume] in Seru m or Plasma 8 U/L 6-29 Alt [place] ([facility]) ID Date Data Source [id number] 02/24/2021 09:14:00 AM EDT [place] ([facility]) Name Value Range Interpretation Code Description Data Romy rce(s) Supporting Document(s) Thyrotropin [Units/volume] in Serum or Plasma 2.47 mIU/L 0.40-4.50 Tsh [place] ([facility]) Thyroxine (T4) free [Mass/volume] in Serum or Plasma 0.9 NG/dL 0 .8-1.8 T4, Free [place] ([facility]) ID Date Data Source [id number] 02/24/2021 09:14:00 AM EDT [place] ([facility]) Name Value Range Interpretation Code Description Data Romy rce(s) Supporting Document(s) Cholesterol [Mass/volume] in Serum or Plasma 147 mg/dL <200 Cholesterol, Total [place] ([facility]) Triglyceride [Mass/volume] in Serum or Plasma 90 mg/dL <150 Triglycerides [place] ([facility]) Cholesterol in LDL [Mass/volume] in Serum or Plasma by calculation 86 mg/dL_(calc) LDL-cholesterol [place] ([facility]) Cholesterol in HDL [Mass/volume] in Serum or Plasma 43 mg/dL > or = 50 Below low normal HDL Cholesterol [place] ([facility]) Cholesterol.total/Cholesterol in HDL [Mass Ratio] in Serum o r Plasma 3.4 (calc) <5.0 Chol/hdlc Ratio [place] ([facility]) Cholesterol non HDL [Mass/volume] in Serum or Plasma 104 mg/dL_(jovanna c) <130 Non HDL Cholesterol [place] ([facility]) ID Date Data Source [id number] 02/24/2021 09:14:00 AM EDT [place] ([facility]) Name Value Range Interpretation Code Description Data Romy rce(s) Supporting Document(s) Iron [Mass/volume] in Serum or Plasma 30 mcg/dL 45-160 Bel ow low normal Iron, Total [place] ([facility]) Iron binding capacity [Mass/volume] in Serum or Plasma 276 m cg/dL_(calc) 250-450 Iron Binding Capacity [place] ([facility]) Iron saturation [Mass Fraction] in Serum or Plasma 11 %_(calc) 16-45 Below low normal % Saturation [place] ([facility]) Ferritin [Mass/volume] in Serum or Plasma 104 NG/mL 16-288 Ferritin [place] ([facility]) ID Date Data Source [id number] 02/24/2021 09:14:00 AM EDT [place] ([facility]) Name Value Range Interpretation Code Description Data Romy rce(s) Supporting Document(s) Cobalamin (Vitamin B12) [Mass/volume] in Serum or Plasma 1158 pg /mL 200-1100 Above high normal Vitamin B12 [facility] ([facility]) Folate [Mass/volume] in Serum or Plasma 13.6 NG/mL Folate, Serum [place] ([facility]) ID Date Data Source [id number] 02/24/2021 09:14:00 AM EDT [place] ([facility]) Name Value Range Interpretation Code Description Data Romy rce(s) Supporting Document(s) Leukocytes [#/volume] in Blood by Automated count 3.8 thousand/uL 3 .8-10.8 White Blood Cell Count [place] ([facility]) Erythrocytes [#/volume] in Blood by Automated count 3.76 million /uL 3.80-5.10 Below low normal Red Blood Cell Count [place] ([facility]) Hematocrit [Volume Fraction] of Blood by Automated count 30.5 % 35.0-45.0 Below low normal Hematocrit [place] ([facility]) Hemoglobin [Mass/volume] in Blood 10.4 g/dL 11.7-15.5 Below l ow normal Hemoglobin [place] ([facility]) Erythrocyte mean corpuscular hemoglobin [Entitic mass] by Automated count 27.7 pg 27.0-33.0 Mch [place] ([facility]) Erythrocyte mean corpuscular volume [Entitic volume] by Auto mated count 81.1 fL 80.0-100.0 Mcv [place] ([facility]) Erythrocyte distribution width [Ratio] by Automated count 13.4 % 11.0-15.0 Rdw [place] ([facility]) Erythrocyte mean corpuscular hemoglobin concentration [Mass/volume] by Automated count 34.1 g/dL 32.0-36.0 Mchc [place] ([facility]) Platelets [#/volume] in Blood by Automated count 158 thousand/uL 14 0-400 Platelet Count [place] ([facility]) Neutrophils [#/volume] in Blood by Automated count 1782 cells/uL 15 00-7800 Absolute Neutrophils [place] ([facility]) Platelet mean volume [Entitic volume] in Blood by Demetris 10.4 f L 7.5-12.5 Mpv [place] ([facility]) Monocytes [#/volume] in Blood by Automated count 369 cells/uL 200-9 50 Absolute Monocytes [place] ([facility]) Eosinophils [#/volume] in Blood by Automated count 407 cells/uL 15- 500 Absolute Eosinophils [place] ([facility]) Lymphocytes [#/volume] in Blood by Automated count 1212 cells/uL 85 0-3900 Absolute Lymphocytes [place] ([facility]) Neutrophils/100 leukocytes in Blood by Automated count 46.9 % 38-80 Neutrophils [place] ([facility]) Basophils [#/volume] in Blood by Automated count 30 cells/uL 0-200 Absolute Basophils [place] ([facility]) Monocytes/100 leukocytes in Blood by Automated count 9.7 % 0-13 Monocytes [place] ([facility]) Lymphocytes/100 leukocytes in Blood by Automated count 31.9 % 15-49 Lymphocytes [place] ([facility]) Eosinophils/100 leukocytes in Blood by Automated count 10.7 % 0-8 Above high normal Eosinophils [place] ([facility]) Basophils/100 leukocytes in Blood by Automated count 0.8 % 0-2 Basophils [place] ([facility]) ID Date Data Source [id number] 02/24/2021 09:14:00 AM EDT [facility]) Name Value Range Interpretation Code Description Data Romy rce(s) Supporting Document(s) Urea nitrogen [Mass/volume] in Serum or Plasma 15 mg/dL 7-25 Urea Nitrogen (BUN) [facility]) Glucose [Mass/volume] in Serum or Plasma 165 mg/dL 65-99 Above high normal Glucose [facility]) Glomerular filtration rate/1.73 sq M.pre dicted among non-blacks [Volume Rate/Area] in Serum, Plasma or Blood by Creatinine-based formula (CKD-EPI) 87 mL/min/1.73m2 > or = 60 eGFR Non-afr. [place] ([facility]) Creatinine [Mass/volume] in Serum or Plasma 0.64 mg/dL 0.60-0.93 Creatinine [facility]) Glomerular filtration rate/1.73 sq M.pre dicted among blacks [Volume Rate/Area] in Serum, Plasma or Blood by Creatinine-based formula (CKD-EPI) 100 mL/min/1.73m2 > or = 60 eGFR [place] ([facility]) Urea nitrogen/Creatinine [Mass Ratio] in Serum or Plasma not applic able 6-22 BUN/creatinine Ratio [place] ([facility]) Sodium [Moles/volume] in Serum or Plasma 137 mmol/L 135-146 Sodium [place] ([facility]) Potassium [Moles/volume] in Serum or Plasma 4.0 mmol/L 3.5-5.3 Potassium [place] ([facility]) Chloride [Moles/volume] in Serum or Plasma 104 mmol/L 98-110 Chloride [place] ([facility]) Calcium [Mass/volume] in Serum or Plasma 9.2 mg/dL 8.6-10.4 Calcium [place] ([facility]) Protein [Mass/volume] in Serum or Plasma 7.8 g/dL 6.1-8.1 Protein, Total [place] ([facility]) Carbon dioxide, total [Moles/volume] in Serum or Plasma 26 mmol/L 20-32 Carbon Dioxide [place] ([facility]) Globulin [Mass/volume] in Serum by calculation 4.1 g/dL_(calc) 1 .9-3.7 Above high normal Globulin [place] ([facility]) Albumin [Mass/volume] in Serum or Plasma 3.7 g/dL 3.6-5.1 Albumin [place] ([facility]) Alkaline phosphatase [Enzymatic activity/volume] in Serum or Plasma 57 U/L 37-153 Alkaline Phosphatase [place] ([facility]) Albumin/Globulin [Mass Ratio] in Serum or Plasma 0.9 (calc) 1.0-2.5 Below low normal Albumin/globulin Ratio [place] ([facility]) Bilirubin.total [Mass/volume] in Serum or Plasma 0.4 mg/dL 0.2-1 .2 Bilirubin, Total [place] ([facility]) Aspartate aminotransferase [Enzymatic activity/volume] in Serum or Plasma 13 U/L 10-35 Ast [place] ([facility]) Alanine aminotransferase [Enzymatic activity/volume] in Seru m or Plasma 8 U/L 6-29 Alt [place] ([facility]) ID Date Data Source [id number] 02/24/2021 09:14:00 AM EDT [place] ([facility]) Name Value Range Interpretation Code Description Data Romy rce(s) Supporting Document(s) Thyrotropin [Units/volume] in Serum or Plasma 2.47 mIU/L 0.40-4.50 Tsh [place] ([facility]) Thyroxine (T4) free [Mass/volume] in Serum or Plasma 0.9 NG/dL 0 .8-1.8 T4, Free [place] ([facility]) ID Date Data Source [id number] 02/24/2021 09:14:00 AM EDT [place] ([facility]) Name Value Range Interpretation Code Description Data Romy rce(s) Supporting Document(s) Cholesterol [Mass/volume] in Serum or Plasma 147 mg/dL <200 Cholesterol, Total [place] ([facility]) Cholesterol in HDL [Mass/volume] in Serum or Plasma 43 mg/dL > or = 50 Below low normal HDL Cholesterol [place] ([facility]) Triglyceride [Mass/volume] in Serum or Plasma 90 mg/dL <150 Triglycerides [place] ([facility]) Cholesterol in LDL [Mass/volume] in Serum or Plasma by calculation 86 mg/dL_(calc) LDL-cholesterol [place] ([facility]) Cholesterol.total/Cholesterol in HDL [Mass Ratio] in Serum o r Plasma 3.4 (calc) <5.0 Chol/hdlc Ratio [place] ([facility]) Cholesterol non HDL [Mass/volume] in Serum or Plasma 104 mg/dL_(jovanna c) <130 Non HDL Cholesterol [place] ([facility]) ID Date Data Source [id number] 02/24/2021 09:14:00 AM EDT [place] ([facility]) Name Value Range Interpretation Code Description Data Romy rce(s) Supporting Document(s) Iron [Mass/volume] in Serum or Plasma 30 mcg/dL 45-160 Bel ow low normal Iron, Total [place] ([facility]) Iron binding capacity [Mass/volume] in Serum or Plasma 276 m cg/dL_(calc) 250-450 Iron Binding Capacity [place] ([facility]) Iron saturation [Mass Fraction] in Serum or Plasma 11 %_(calc) 16-45 Below low normal % Saturation [place] ([facility]) Ferritin [Mass/volume] in Serum or Plasma 104 NG/mL 16-288 Ferritin [place] ([facility]) ID Date Data Source [id number] 02/24/2021 09:14:00 AM EDT [place] ([facility]) Name Value Range Interpretation Code Description Data Romy rce(s) Supporting Document(s) Hemoglobin A1c/Hemoglobin.total in Blood 7.2 %_of_total_HGB <5.7 Above high normal Hemoglobin a1C [place] ([facility]) ID Date Data Source [id number] 02/24/2021 09:14:00 AM EDT [place] ([facility]) Name Value Range Interpretation Code Description Data Romy rce(s) Supporting Document(s) Calcidiol [Mass/volume] in Serum or Plasma 29 NG/mL 30-100 Below low normal Vitamin D,25-Oh,total,ia [place] ([facility]) ID Date Data Source [id number] 02/24/2021 09:14:00 AM EDT [place] ([facility]) Name Value Range Interpretation Code Description Data Romy rce(s) Supporting Document(s) Cobalamin (Vitamin B12) [Mass/volume] in Serum or Plasma 1158 pg /mL 200-1100 Above high normal Vitamin B12 [place] ([facility]) Folate [Mass/volume] in Serum or Plasma 13.6 NG/mL Folate, Serum [place] ([facility]) ID Date Data Source [id number] 02/24/2021 09:14:00 AM EDT [facility]) Name Value Range Interpretation Code Description Data Romy rce(s) Supporting Document(s) Leukocytes [#/volume] in Blood by Automated count 3.8 thousand/uL 3 .8-10.8 White Blood Cell Count [place] ([facility]) Hematocrit [Volume Fraction] of Blood by Automated count 30.5 % 35.0-45.0 Below low normal Hematocrit [place] ([facility]) Hemoglobin [Mass/volume] in Blood 10.4 g/dL 11.7-15.5 Below l ow normal Hemoglobin [place] ([facility]) Erythrocytes [#/volume] in Blood by Automated count 3.76 million /uL 3.80-5.10 Below low normal Red Blood Cell Count [place] ([facility]) Erythrocyte mean corpuscular hemoglobin [Entitic mass] by Automated count 27.7 pg 27.0-33.0 Mch [place] ([facility]) Erythrocyte mean corpuscular hemoglobin concentration [Mass/volume] by Automated count 34.1 g/dL 32.0-36.0 Mchc [place] ([facility]) Erythrocyte mean corpuscular volume [Entitic volume] by Auto mated count 81.1 fL 80.0-100.0 Mcv [place] ([facility]) Erythrocyte distribution width [Ratio] by Automated count 13.4 % 11.0-15.0 Rdw [place] ([facility]) Platelet mean volume [Entitic volume] in Blood by Marcelino-Deidre 10.4 f L 7.5-12.5 Mpv [place] ([facility]) Platelets [#/volume] in Blood by Automated count 158 thousand/uL 14 0-400 Platelet Count [place] ([facility]) Neutrophils [#/volume] in Blood by Automated count 1782 cells/uL 15 00-7800 Absolute Neutrophils [place] ([facility]) Lymphocytes [#/volume] in Blood by Automated count 1212 cells/uL 85 0-3900 Absolute Lymphocytes [place] ([facility]) Eosinophils [#/volume] in Blood by Automated count 407 cells/uL 15- 500 Absolute Eosinophils [place] ([facility]) Monocytes [#/volume] in Blood by Automated count 369 cells/uL 200-9 50 Absolute Monocytes [place] ([facility]) Neutrophils/100 leukocytes in Blood by Automated count 46.9 % 38-80 Neutrophils [place] ([facility]) Basophils [#/volume] in Blood by Automated count 30 cells/uL 0-200 Absolute Basophils [place] ([facility]) Lymphocytes/100 leukocytes in Blood by Automated count 31.9 % 15-49 Lymphocytes [place] ([facility]) Eosinophils/100 leukocytes in Blood by Automated count 10.7 % 0-8 Above high normal Eosinophils [place] ([facility]) Monocytes/100 leukocytes in Blood by Automated count 9.7 % 0-13 Monocytes [place] ([facility]) Basophils/100 leukocytes in Blood by Automated count 0.8 % 0-2 Basophils [place] ([facility]) ID Date Data Source [id number] 02/24/2021 09:14:00 AM EDT [facility]) Name Value Range Interpretation Code Description Data Romy rce(s) Supporting Document(s) Glucose [Mass/volume] in Serum or Plasma 165 mg/dL 65-99 Above high normal Glucose [place] ([facility]) Creatinine [Mass/volume] in Serum or Plasma 0.64 mg/dL 0.60-0.93 Creatinine [place] ([facility]) Urea nitrogen [Mass/volume] in Serum or Plasma 15 mg/dL 7-25 [facility]BUN) [facility] Glomerular filtration rate/1.73 sq M.pre dicted among non-blacks [Volume Rate/Area] in Serum, Plasma or Blood by Creatinine-based formula (CKD-EPI) 87 mL/min/1.73m2 > or = 60 eGFR Non-afr. [place] ([facility]) Urea nitrogen/Creatinine [Mass Ratio] in Serum or Plasma not applic able 6-22 BUN/creatinine Ratio [place] ([facility]) Glomerular filtration rate/1.73 sq M.pre dicted among blacks [Volume Rate/Area] in Serum, Plasma or Blood by Creatinine-based formula (CKD-EPI) 100 mL/min/1.73m2 > or = 60 eGFR [facility] ([facility]) Chloride [Moles/volume] in Serum or Plasma 104 mmol/L 98-110 Chloride [place] ([facility]) Sodium [Moles/volume] in Serum or Plasma 137 mmol/L 135-146 Sodium [place] ([facility]) Potassium [Moles/volume] in Serum or Plasma 4.0 mmol/L 3.5-5.3 Potassium [place] ([facility]) Carbon dioxide, total [Moles/volume] in Serum or Plasma 26 mmol/L 20-32 Carbon Dioxide [facility] ([facility]) Protein [Mass/volume] in Serum or Plasma 7.8 g/dL 6.1-8.1 Protein, Total [place] ([facility]) Calcium [Mass/volume] in Serum or Plasma 9.2 mg/dL 8.6-10.4 Calcium [place] ([facility]) Albumin/Globulin [Mass Ratio] in Serum or Plasma 0.9 (calc) 1.0-2.5 Below low normal Albumin/globulin Ratio [facility] ([facility]) Globulin [Mass/volume] in Serum by calculation 4.1 g/dL_(calc) 1 .9-3.7 Above high normal Globulin [facility] ([facility]) Albumin [Mass/volume] in Serum or Plasma 3.7 g/dL 3.6-5.1 Albumin [facility] ([facility]) Bilirubin.total [Mass/volume] in Serum or Plasma 0.4 mg/dL 0.2-1 .2 Bilirubin, Total [place] ([facility]) Alkaline phosphatase [Enzymatic activity/volume] in Serum or Plasma 57 U/L 37-153 Alkaline Phosphatase [facility] ([facility]) Aspartate aminotransferase [Enzymatic activity/volume] in Serum or Plasma 13 U/L 10-35 Ast [facility] ([facility]) Alanine aminotransferase [Enzymatic activity/volume] in Seru m or Plasma 8 U/L 6-29 Alt [facility] ([facility]) ID Date Data Source [id number] 02/24/2021 09:14:00 AM EDT [place] ([facility]) Name Value Range Interpretation Code Description Data Romy rce(s) Supporting Document(s) Thyrotropin [Units/volume] in Serum or Plasma 2.47 mIU/L 0.40-4.50 Tsh [facility] ([facility]) Thyroxine (T4) free [Mass/volume] in Serum or Plasma 0.9 NG/dL 0 .8-1.8 T4, Free [place] ([facility]) ID Date Data Source [id number] 02/24/2021 09:14:00 AM EDT [place] ([facility]) Name Value Range Interpretation Code Description Data Romy rce(s) Supporting Document(s) Cholesterol in HDL [Mass/volume] in Serum or Plasma 43 mg/dL > or = 50 Below low normal HDL Cholesterol [facility] ([facility]) Triglyceride [Mass/volume] in Serum or Plasma 90 mg/dL <150 Triglycerides [facility] ([facility]) Cholesterol [Mass/volume] in Serum or Plasma 147 mg/dL <200 Cholesterol, Total [facility] ([facility]) Cholesterol.total/Cholesterol in HDL [Mass Ratio] in Serum o r Plasma 3.4 (calc) <5.0 Chol/hdlc Ratio [facility] ([facility]) Cholesterol in LDL [Mass/volume] in Serum or Plasma by calculation 86 mg/dL_(calc) LDL-cholesterol [facility] ([facility]) Cholesterol non HDL [Mass/volume] in Serum or Plasma 104 mg/dL_(jovanna c) <130 Non HDL Cholesterol [facility] ([facility]) ID Date Data Source [id number] 02/24/2021 09:14:00 AM EDT [place] ([facility]) Name Value Range Interpretation Code Description Data Romy rce(s) Supporting Document(s) Iron [Mass/volume] in Serum or Plasma 30 mcg/dL 45-160 Bel ow low normal Iron, Total [facility] ([facility]) Iron saturation [Mass Fraction] in Serum or Plasma 11 %_(calc) 16-45 Below low normal % Saturation [facility] ([facility]) Iron binding capacity [Mass/volume] in Serum or Plasma 276 m cg/dL_(calc) 250-450 Iron Binding Capacity [facility] ([facility]) Ferritin [Mass/volume] in Serum or Plasma 104 NG/mL 16-288 Ferritin [place] ([facility]) ID Date Data Source [id number] 02/24/2021 09:14:00 AM EDT [facility]) Name Value Range Interpretation Code Description Data Romy rce(s) Supporting Document(s) Hemoglobin A1c/Hemoglobin.total in Blood 7.2 %_of_total_HGB <5.7 Above high normal Hemoglobin a1C [facility] ([facility]) ID Date Data Source [id number] 02/24/2021 09:14:00 AM EDT [facility]) Name Value Range Interpretation Code Description Data Romy rce(s) Supporting Document(s) Calcidiol [Mass/volume] in Serum or Plasma 29 NG/mL 30-100 Below low normal Vitamin D,25-Oh,total,ia [facility]) ID Date Data Source [id number] 02/24/2021 09:14:00 AM EDT [facility]) Name Value Range Interpretation Code Description Data Romy rce(s) Supporting Document(s) Cobalamin (Vitamin B12) [Mass/volume] in Serum or Plasma 1158 pg /mL 200-1100 Above high normal Vitamin B12 [place] ([facility]) Folate [Mass/volume] in Serum or Plasma 13.6 NG/mL Folate, Serum THOMSON ([facility]) ID Date Data Source [id number] 02/24/2021 09:14:00 AM EDT [facility]) Name Value Range Interpretation Code Description Data Romy rce(s) Supporting Document(s) Erythrocytes [#/volume] in Blood by Automated count 3.76 million /uL 3.80-5.10 Below low normal Red Blood Cell Count THOMSON ([facility]) Leukocytes [#/volume] in Blood by Automated count 3.8 thousand/uL 3 .8-10.8 White Blood Cell Count ROSEMARY ([facility]) Hemoglobin [Mass/volume] in Blood 10.4 g/dL 11.7-15.5 Below l ow normal Hemoglobin ROSEMARY ([facility]) Hematocrit [Volume Fraction] of Blood by Automated count 30.5 % 35.0-45.0 Below low normal Hematocrit ROSEMARY ([facility]) Erythrocyte mean corpuscular volume [Entitic volume] by Auto mated count 81.1 fL 80.0-100.0 Mcv ROSEMARY ([facility]) Erythrocyte mean corpuscular hemoglobin [Entitic mass] by Automated count 27.7 pg 27.0-33.0 Mch ROSEMARY ([facility]) Erythrocyte mean corpuscular hemoglobin concentration [Mass/volume] by Automated count 34.1 g/dL 32.0-36.0 Mchc ROSEMARY ([facility]) Platelets [#/volume] in Blood by Automated count 158 thousand/uL 14 0-400 Platelet Count ROSEMARY ([facility]) Platelet mean volume [Entitic volume] in Blood by Demetris 10.4 f L 7.5-12.5 Mpv ROSEMARY ([facility]) Erythrocyte distribution width [Ratio] by Automated count 13.4 % 11.0-15.0 Rdw ROSEMARY ([facility]) Monocytes [#/volume] in Blood by Automated count 369 cells/uL 200-9 50 Absolute Monocytes ROSEMARY ([facility]) Lymphocytes [#/volume] in Blood by Automated count 1212 cells/uL 85 0-3900 Absolute Lymphocytes ROSEMARY ([facility]) Neutrophils [#/volume] in Blood by Automated count 1782 cells/uL 15 00-7800 Absolute Neutrophils ROSEMARY ([facility]) Basophils [#/volume] in Blood by Automated count 30 cells/uL 0-200 Absolute Basophils ROSEMARY ([facility]) Neutrophils/100 leukocytes in Blood by Automated count 46.9 % 38-80 Neutrophils ROSEMARY ([facility]) Eosinophils [#/volume] in Blood by Automated count 407 cells/uL 15- 500 Absolute Eosinophils ROSEMARY ([facility]) Lymphocytes/100 leukocytes in Blood by Automated count 31.9 % 15-49 Lymphocytes ROSEMARY ([facility]) Basophils/100 leukocytes in Blood by Automated count 0.8 % 0-2 Basophils ROSEMARY ([facility]) Monocytes/100 leukocytes in Blood by Automated count 9.7 % 0-13 Monocytes ROSEMARY ([facility]) Eosinophils/100 leukocytes in Blood by Automated count 10.7 % 0-8 Above high normal Eosinophils ROSEMARY ([facility]) ID Date Data Source [id number] 02/24/2021 09:14:00 AM EDT ROSEMARY ([facility]) Name Value Range Interpretation Code Description Data Romy rce(s) Supporting Document(s) Glucose [Mass/volume] in Serum or Plasma 165 mg/dL 65-99 Above high normal Glucose ROSEMARY ([facility]) Urea nitrogen [Mass/volume] in Serum or Plasma 15 mg/dL 7-25 [facility] N[facility] (BUN) [facility] Glomerular filtration rate/1.73 sq M.pre dicted among non-blacks [Volume Rate/Area] in Serum, Plasma or Blood by Creatinine-based formula (CKD-EPI) 87 mL/min/1.73m2 > or = 60 eGFR Non-afr. [place] ROSEMARY ([facility]) Creatinine [Mass/volume] in Serum or Plasma 0.64 mg/dL 0.60-0.93 Creatinine THOMSON ([facility]) Glomerular filtration rate/1.73 sq M.pre dicted among blacks [Volume Rate/Area] in Serum, Plasma or Blood by Creatinine-based formula (CKD-EPI) 100 mL/min/1.73m2 > or = 60 eGFR ROSEMARY (No [facility]) Urea nitrogen/Creatinine [Mass Ratio] in Serum or Plasma not applic able 6-22 BUN/creatinine Ratio ROSEAMRY ([facility]) Sodium [Moles/volume] in Serum or Plasma 137 mmol/L 135-146 Sodium ROSEMARY ([facility]) Potassium [Moles/volume] in Serum or Plasma 4.0 mmol/L 3.5-5.3 Potassium THOMSON ([facility]) Chloride [Moles/volume] in Serum or Plasma 104 mmol/L 98-110 Chloride ROSEMARY ([facility]) Carbon dioxide, total [Moles/volume] in Serum or Plasma 26 mmol/L 20-32 Carbon Dioxide ROSEMARY ([facility]) Albumin [Mass/volume] in Serum or Plasma 3.7 g/dL 3.6-5.1 Albumin ROSEMARY ([facility]) Calcium [Mass/volume] in Serum or Plasma 9.2 mg/dL 8.6-10.4 Calcium ROSEMARY ([facility]) Globulin [Mass/volume] in Serum by calculation 4.1 g/dL_(calc) 1 .9-3.7 Above high normal Globulin ROSEMARY ([facility]) Protein [Mass/volume] in Serum or Plasma 7.8 g/dL 6.1-8.1 Protein, Total ROSEMARY ([facility]) Albumin/Globulin [Mass Ratio] in Serum or Plasma 0.9 (calc) 1.0-2.5 Below low normal Albumin/globulin Ratio THOMSON ([facility]) Bilirubin.total [Mass/volume] in Serum or Plasma 0.4 mg/dL 0.2-1 .2 Bilirubin, Total ROSEMARY ([facility]) Aspartate aminotransferase [Enzymatic activity/volume] in Serum or Plasma 13 U/L 10-35 Ast ROSEMARY ([facility]) Alkaline phosphatase [Enzymatic activity/volume] in Serum or Plasma 57 U/L 37-153 Alkaline Phosphatase THOMSON ([facility]) Alanine aminotransferase [Enzymatic activity/volume] in Seru m or Plasma 8 U/L 6-29 Alt ROSEMARY ([facility]) ID Date Data Source [id number] 02/24/2021 09:14:00 AM EDT THOMSON ([facility]) Name Value Range Interpretation Code Description Data Romy rce(s) Supporting Document(s) Thyrotropin [Units/volume] in Serum or Plasma 2.47 mIU/L 0.40-4.50 Tsh THOMSON ([facility]) Thyroxine (T4) free [Mass/volume] in Serum or Plasma 0.9 NG/dL 0 .8-1.8 T4, Free ROSEMARY ([facility]) ID Date Data Source [id number] 02/24/2021 09:14:00 AM EDT ROSEMARY ([facility]) Name Value Range Interpretation Code Description Data Romy rce(s) Supporting Document(s) Cholesterol [Mass/volume] in Serum or Plasma 147 mg/dL <200 Cholesterol, Total ROSEMARY ([facility]) Triglyceride [Mass/volume] in Serum or Plasma 90 mg/dL <150 Triglycerides ROSEMARY ([facility]) Cholesterol in HDL [Mass/volume] in Serum or Plasma 43 mg/dL > or = 50 Below low normal HDL Cholesterol ROSEMARY ([facility]) Cholesterol in LDL [Mass/volume] in Serum or Plasma by calculation 86 mg/dL_(calc) LDL-cholesterol ROSEMARY ([facility]) Cholesterol non HDL [Mass/volume] in Serum or Plasma 104 mg/dL_(jovanna c) <130 Non HDL Cholesterol ROSEMARY ([facility]) Cholesterol.total/Cholesterol in HDL [Mass Ratio] in Serum o r Plasma 3.4 (calc) <5.0 Chol/hdlc Ratio ROSEMARY ([facility]) ID Date Data Source [id number] 02/24/2021 09:14:00 AM EDT ROSEMARY ([facility]) Name Value Range Interpretation Code Description Data Romy rce(s) Supporting Document(s) Iron [Mass/volume] in Serum or Plasma 30 mcg/dL 45-160 Bel ow low normal Iron, Total ROSEMARY ([facility]) Iron binding capacity [Mass/volume] in Serum or Plasma 276 m cg/dL_(calc) 250-450 Iron Binding Capacity ROSEMARY ([facility]) Iron saturation [Mass Fraction] in Serum or Plasma 11 %_(calc) 16-45 Below low normal % Saturation ROSEMARY ([facility]) Ferritin [Mass/volume] in Serum or Plasma 104 NG/mL 16-288 Ferritin ROSEMARY ([facility]) ID Date Data Source [id number] 02/24/2021 09:14:00 AM EDT ROSEMARY ([facility]) Name Value Range Interpretation Code Description Data Romy rce(s) Supporting Document(s) Hemoglobin A1c/Hemoglobin.total in Blood 7.2 %_of_total_HGB <5.7 Above high normal Hemoglobin a1C ROSEMARY ([facility]) ID Date Data Source [id number] 02/24/2021 09:14:00 AM EDT ROSEMARY ([facility]) Name Value Range Interpretation Code Description Data Romy rce(s) Supporting Document(s) Calcidiol [Mass/volume] in Serum or Plasma 29 NG/mL 30-100 Below low normal Vitamin D,25-Oh,total,ia THOMSON ([facility]) ID Date Data Source [id number] 02/24/2021 09:14:00 AM EDT THOMSON ([facility]) Name Value Range Interpretation Code Description Data Romy rce(s) Supporting Document(s) Cholesterol [Mass/volume] in Serum or Plasma 147 mg/dL <200 Cholesterol, Total ROSEMARY ([facility]) Triglyceride [Mass/volume] in Serum or Plasma 90 mg/dL <150 Triglycerides ROSEMARY ([facility]) Cholesterol in HDL [Mass/volume] in Serum or Plasma 43 mg/dL > or = 50 Below low normal HDL Cholesterol ROSEMARY ([facility]) Cholesterol.total/Cholesterol in HDL [Mass Ratio] in Serum o r Plasma 3.4 (calc) <5.0 Chol/hdlc Ratio ROSEMARY ([facility]) Cholesterol in LDL [Mass/volume] in Serum or Plasma by calculation 86 mg/dL_(calc) LDL-cholesterol ROSEMARY ([facility]) Cholesterol non HDL [Mass/volume] in Serum or Plasma 104 mg/dL_(jovanna c) <130 Non HDL Cholesterol ROSEMARY ([facility]) ID Date Data Source [id number] 02/16/2021 03:11:00 PM [facility] Name Value Range Interpretation Code Description Data Romy rce(s) Supporting Document(s) Hemoglobin A1c/Hemoglobin.total in Blood 7.6 % Abnormal (applies to non- numeric results) Hba1C ROSEMARY ([facility]) ID Date Data Source [id number] 02/16/2021 03:11:00 PM EDT [facility]) Name Value Range Interpretation Code Description Data Romy rce(s) Supporting Document(s) Hemoglobin A1c/Hemoglobin.total in Blood 7.6 % Abnormal (applies to non- numeric results) Hba1C THOMSON ([facility]) ID Date Data Source [id number] 02/16/2021 03:11:00 PM EDT [facility]) Name Value Range Interpretation Code Description Data Romy rce(s) Supporting Document(s) Hemoglobin A1c/Hemoglobin.total in Blood 7.6 % Abnormal (applies to non- numeric results) Hba1C THOMSON ([facility]) ID Date Data Source [id number] 02/16/2021 03:11:00 PM EDT [facility]) Name Value Range Interpretation Code Description Data Romy rce(s) Supporting Document(s) Hemoglobin A1c/Hemoglobin.total in Blood 7.6 % Abnormal (applies to non- numeric results) Hba1C ROSEMARY ([facility]) ID Date Data Source [id number] 02/16/2021 03:11:00 PM EDT [facility]) Name Value Range Interpretation Code Description Data Romy rce(s) Supporting Document(s) Hemoglobin A1c/Hemoglobin.total in Blood 7.6 % Abnormal (applies to non- numeric results) Hba1C ROSEMARY ([facility]) ID Date Data Source [id number] 02/16/2021 03:11:00 PM EDT [facility]) Name Value Range Interpretation Code Description Data Romy rce(s) Supporting Document(s) Hemoglobin A1c/Hemoglobin.total in Blood 7.6 % Abnormal (applies to non- numeric results) Hba1C ROSEMARY ([facility]) Procedure Social History Code Duration Value Status Description Data Source(s ) Smoking 07/26/2021 12:00:00 AM EST Never Smoker completed Never S moker eCW1 ([facility]) Smoking 07/26/2021 12:00:00 AM EST Never Smoker completed Never S moker eCW1 ([facility]) Smoking 07/26/2021 12:00:00 AM EST Never Smoker completed Never S moker eCW1 ([facility]) Smoking 07/20/2021 12:00:00 AM EST Never Smoker completed Never S moker eCW1 ([facility]) Smoking 07/13/2021 12:00:00 AM EST Never Smoker completed Never S moker eCW1 ([facility]) Smoking 06/30/2021 12:00:00 AM EDT Never Smoker completed Never S moker eCW1 ([facility]) Smoking 06/30/2021 12:00:00 AM EDT Never Smoker completed Never S moker eCW1 ([facility]) Smoking 06/23/2021 12:00:00 AM EDT Never Smoker completed Never S moker eCW1 ([facility]) Smoking 06/23/2021 12:00:00 AM EDT Never Smoker completed Never S moker eCW1 ([facility]) Smoking 06/09/2021 12:00:00 AM EDT Never Smoker completed Never S moker eCW1 ([facility]) Smoking 05/26/2021 12:00:00 AM EDT Never Smoker completed Never S moker eCW1 ([facility]) Smoking 05/19/2021 12:00:00 AM EDT Never Smoker completed Never S moker eCW1 ([facility]) Smoking 05/12/2021 12:00:00 AM EDT Never Smoker completed Never S moker eCW1 ([facility]) Smoking 05/12/2021 12:00:00 AM EDT Never Smoker completed Never S moker eCW1 ([facility]) Smoking 04/21/2021 12:00:00 AM EDT Never Smoker completed Never S moker eCW1 ([facility]) Smoking 04/21/2021 12:00:00 AM EDT Never Smoker completed Never S moker eCW1 ([facility]) Smoking 04/21/2021 12:00:00 AM EDT Never Smoker completed Never S moker eCW1 ([facility]) Smoking 04/14/2021 12:00:00 AM EDT Never Smoker completed Never S moker eCW1 ([facility]) Smoking 04/14/2021 12:00:00 AM EDT Never Smoker completed Never S moker eCW1 ([facility]) Smoking 04/07/2021 12:00:00 AM EDT Never Smoker completed Never S moker eCW1 ([facility]) Smoking 03/31/2021 12:00:00 AM EDT Never Smoker completed Never S moker eCW1 ([facility]) Smoking 03/17/2021 12:00:00 AM EDT Never Smoker completed Never S moker eCW1 ([facility]) Smoking 03/17/2021 12:00:00 AM EDT Never Smoker completed Never S moker eCW1 ([facility]) Smoking 03/17/2021 12:00:00 AM EDT Never Smoker completed Never S moker eCW1 ([facility]) Smoking 03/10/2021 12:00:00 AM EDT Never Smoker completed Never S moker eCW1 ([facility]) Smoking 02/24/2021 12:00:00 AM EDT Never Smoker completed Never S moker eCW1 ([facility]) Smoking 02/24/2021 12:00:00 AM EDT Never Smoker completed Never S moker eCW1 ([facility]) Smoking 01/27/2021 12:00:00 AM EDT Never Smoker completed Never S moker eCW1 ([facility]) Smoking 01/27/2021 12:00:00 AM EDT Never Smoker completed Never S moker eCW1 ([facility]) Smoking 01/19/2021 12:00:00 AM EDT Never Smoker completed Never S moker eCW1 ([facility]) Smoking 01/12/2021 12:00:00 AM EDT Never Smoker completed Never S moker eCW1 ([facility]) Smoking 01/12/2021 12:00:00 AM EDT Never Smoker completed Never S moker eCW1 ([facility]) Smoking 12/29/2020 12:00:00 AM EDT Never Smoker completed Never S moker eCW1 ([facility]) Smoking 12/23/2020 12:00:00 AM EDT Never Smoker completed Never S moker eCW1 ([facility]) Smoking 12/09/2020 12:00:00 AM EDT Never Smoker completed Never S moker eCW1 ([facility]) Smoking 12/02/2020 12:00:00 AM EDT Never Smoker completed Never S moker eCW1 ([facility]) Smoking 11/23/2020 12:00:00 AM EDT Never Smoker completed Never S moker eCW1 ([facility]) Smoking 11/23/2020 12:00:00 AM EDT Never Smoker completed Never S moker eCW1 ([facility]) Smoking 11/16/2020 12:00:00 AM EDT Never Smoker completed Never S moker eCW1 ([facility]) Smoking 11/16/2020 12:00:00 AM EDT Never Smoker completed Never S moker eCW1 ([facility]) Smoking 11/01/2020 12:00:00 AM EST Never Smoker completed Never S moker eCW1 ([facility]) Smoking 10/17/2020 12:00:00 AM EST Never Smoker completed Never S moker eCW1 ([facility]) Smoking 10/17/2020 12:00:00 AM EST Never Smoker completed Never S moker eCW1 ([facility]) Smoking 10/17/2020 12:00:00 AM EST Never Smoker completed Never S moker eCW1 ([facility]) Smoking 10/17/2020 12:00:00 AM EST Never Smoker completed Never S moker eCW1 ([facility]) Smoking 10/07/2020 12:00:00 AM EST Never Smoker completed Never S moker eCW1 ([facility]) Smoking 10/07/2020 12:00:00 AM EST Never Smoker completed Never S moker eCW1 ([facility]) Smoking 09/30/2020 12:00:00 AM EST Never Smoker completed Never S moker eCW1 ([facility]) Smoking 09/23/2020 12:00:00 AM EST Never Smoker completed Never S moker eCW1 ([facility]) Smoking 09/14/2020 12:00:00 AM EST Never Smoker completed Never S moker eCW1 ([facility]) Smoking 08/24/2020 12:00:00 AM EST Never Smoker completed Never S moker eCW1 ([facility]) Smoking 08/24/2020 12:00:00 AM EST Never Smoker completed Never S moker eCW1 ([facility]) Smoking 08/17/2020 12:00:00 AM EST Never Smoker completed Never S moker eCW1 ([facility]) Smoking 08/17/2020 12:00:00 AM EST Never Smoker completed Never S moker eCW1 ([facility]) Smoking 08/11/2020 12:00:00 AM EST Never Smoker completed Never S moker eCW1 ([facility]) Smoking 08/11/2020 12:00:00 AM EST Never Smoker completed Never S moker eCW1 ([facility]) Smoking 08/03/2020 12:00:00 AM EST Never Smoker completed Never S moker eCW1 ([facility]) Smoking 08/03/2020 12:00:00 AM EST Never Smoker completed Never S moker eCW1 ([facility]) Smoking 08/03/2020 12:00:00 AM EST Never Smoker completed Never S moker eCW1 ([facility]) Smoking 08/03/2020 12:00:00 AM EST Never Smoker completed Never S moker eCW1 ([facility]) Smoking 07/15/2020 12:00:00 AM EST Never Smoker completed Never S moker eCW1 ([facility]) Smoking 07/15/2020 12:00:00 AM EST Never Smoker completed Never S moker eCW1 ([facility]) Smoking 07/08/2020 12:00:00 AM EST Never Smoker completed Never S moker eCW1 ([facility]) Smoking 07/08/2020 12:00:00 AM EST Never Smoker completed Never S moker eCW1 ([facility]) Smoking 07/01/2020 12:00:00 AM EDT Never Smoker completed Never S moker eCW1 ([facility]) Smoking 07/01/2020 12:00:00 AM EDT Never Smoker completed Never S moker eCW1 ([facility]) Smoking 06/28/2020 12:00:00 AM EDT Never Smoker completed Never S moker eCW1 ([facility]) Smoking 06/28/2020 12:00:00 AM EDT Never Smoker completed Never S moker eCW1 ([facility]) Smoking 06/24/2020 12:00:00 AM EDT Never Smoker completed Never S moker eCW1 ([facility]) Smoking 06/24/2020 12:00:00 AM EDT Never Smoker completed Never S moker eCW1 ([facility]) Smoking 06/24/2020 12:00:00 AM EDT Never Smoker completed Never S moker eCW1 ([facility]) Vital Signs ID Date Data Source UNK Name Value Range Interpretation Code Description Data Source(s) Body weight 111 [lb_av] 111 [lb_av] eCW1 ([facility]) Body weight 50.35 kg 50.35 kg eCW1 ([facility]) Body height 68 [in_i] 68 [in_i] W1 ([facility]) Body temperature 97.1 [degF] 97.1 [degF] eCW1 ( [facility]) Systolic blood pressure 136 mm[Hg] 136 mm[Hg] e CW1 ([facility]) Diastolic blood pressure 60 mm[Hg] 60 mm[Hg] eCW1 ([facility]) Body mass index (BMI) [Ratio] 16.88 kg/m2 16.88 kg/m2 eCW1 ([facility]) Heart rate 87 /min 87 /min eCW1 ([facility]) Respiratory rate 18 /min 18 /min eCW1 ([facility]) Respiratory rate 18 /min 18 /min eCW1 ([facility]) Body temperature 96.3 [degF] 96.3 [degF] eCW1 ( [facility]) Systolic blood pressure 123 mm[Hg] 123 mm[Hg] e CW1 ([facility]) Diastolic blood pressure 58 mm[Hg] 58 mm[Hg] eCW1 ([facility]) Body weight 111 [lb_av] 111 [lb_av] eCW1 ([facility]) Body height 68 [in_i] 68 [in_i] eCW1 ([facility]) Body mass index (BMI) [Ratio] 16.88 kg/m2 16.88 kg/m2 eCW1 ([facility]) Heart rate 82 /min 82 /min eCW1 ([facility]) Body weight 111 [lb_av] 111 [lb_av] eCW1 ([facility]) Body height 68 [in_i] 68 [in_i] eCW1 ([facility]) Body mass index (BMI) [Ratio] 16.88 kg/m2 16.88 kg/m2 eCW1 ([facility]) Heart rate 84 /min 84 /min eCW1 ([facility]) Respiratory rate 16 /min 16 /min eCW1 ([facility]) Body temperature 97.6 [degF] 97.6 [degF] eCW1 ( [facility]) Systolic blood pressure 127 mm[Hg] 127 mm[Hg] e CW1 ([facility]) Diastolic blood pressure 60 mm[Hg] 60 mm[Hg] eCW1 ([facility]) Body weight 111 [lb_av] 111 [lb_av] eCW1 ([facility]) Body height 68 [in_i] 68 [in_i] eCW1 ([facility]) Body mass index (BMI) [Ratio] 16.88 kg/m2 16.88 kg/m2 eCW1 ([facility]) Heart rate 91 /min 91 /min eCW1 ([facility]) Respiratory rate 20 /min 20 /min eCW1 ([facility]) Body temperature 97 [degF] 97 [degF] eCW1 ([facility]) Systolic blood pressure 123 mm[Hg] 123 mm[Hg] e CW1 ([facility]) Diastolic blood pressure 66 mm[Hg] 66 mm[Hg] eCW1 ([facility]) Diastolic blood pressure 73 mm[Hg] 73 mm[Hg] ROSEMARY ([facility]) Body height 68 [in_i] 68 [in_i] ROSEMARY ([facility]) Body mass index (BMI) [Ratio] 16.9 kg/m2 16.9 k g/m2 ROSEMARY ([facility]) Systolic blood pressure 125 mm[Hg] 125 mm[Hg] A THENA ([facility]) Body weight 1776 [oz_av] 1776 [oz_av] [facility] [facility]) Body weight 114 [lb_av] 114 [lb_av] eCW1 ([facility]) Body height 68 [in_i] 68 [in_i] eCW1 ([facility]) Body mass index (BMI) [Ratio] 17.33 kg/m2 17.33 kg/m2 eCW1 ([facility]) Heart rate 93 /min 93 /min eCW1 ([facility]) Respiratory rate 18 /min 18 /min eCW1 ([facility]) Body temperature 98.3 [degF] 98.3 [degF] eCW1 ( [facility]) Systolic blood pressure 134 mm[Hg] 134 mm[Hg] e CW1 ([facility]) Diastolic blood pressure 63 mm[Hg] 63 mm[Hg] eCW1 ([facility]) Body weight 114 [lb_av] 114 [lb_av] eCW1 ([facility]) Body height 68 [in_i] 68 [in_i] eCW1 ([facility]) Body mass index (BMI) [Ratio] 17.33 kg/m2 17.33 kg/m2 eCW1 ([facility]) Heart rate 77 /min 77 /min eCW1 ([facility]) Respiratory rate 18 /min 18 /min eCW1 ([facility]) Body temperature 98.2 [degF] 98.2 [degF] eCW1 ( [facility]) Systolic blood pressure 126 mm[Hg] 126 mm[Hg] e CW1 ([facility]) Diastolic blood pressure 57 mm[Hg] 57 mm[Hg] eCW1 ([facility]) Body weight 114 [lb_av] 114 [lb_av] eCW1 ([facility]) Body height 68 [in_i] 68 [in_i] eCW1 ([facility]) Body mass index (BMI) [Ratio] 17.33 kg/m2 17.33 kg/m2 eCW1 ([facility]) Heart rate 55 /min 55 /min eCW1 ([facility]) Respiratory rate 16 /min 16 /min eCW1 ([facility]) Body temperature 98.3 [degF] 98.3 [degF] eCW1 ( [facility]) Systolic blood pressure 119 mm[Hg] 119 mm[Hg] e CW1 ([facility]) Diastolic blood pressure 61 mm[Hg] 61 mm[Hg] eCW1 ([facility]) Diastolic blood pressure 76 mm[Hg] 76 mm[Hg] [place] ([facility]) Body height 68 [in_i] 68 [in_i] [facility] ([facility]) Body mass index (BMI) [Ratio] 17 kg/m2 17 kg/ m2 [facility] ([facility]) Systolic blood pressure 116 mm[Hg] 116 mm[Hg] A THENA ([facility]) Body weight 1784 [oz_av] 1784 [oz_av] [place] ([facility]) Diastolic blood pressure 76 mm[Hg] 76 mm[Hg] [place] ([facility]) Body height 68 [in_i] 68 [in_i] [place] ([facility]) Body mass index (BMI) [Ratio] 17 kg/m2 17 kg/ m2 [place] ([facility]) Systolic blood pressure 116 mm[Hg] 116 mm[Hg] A THENA ([facility]) Body weight 1784 [oz_av] 1784 [oz_av] [place] ([facility]) Body weight 114 [lb_av] 114 [lb_av] eCW1 ([facility]) Body weight 51.71 kg 51.71 kg eCW1 ([facility]) Body height 68 [in_i] 68 [in_i] eCW1 ([facility]) Body mass index (BMI) [Ratio] 17.33 kg/m2 17.33 kg/m2 eCW1 ([facility]) Heart rate 75 /min 75 /min eCW1 ([facility]) Respiratory rate 18 /min 18 /min eCW1 ([facility]) Body temperature 98.4 [degF] 98.4 [degF] eCW1 ( [facility]) Systolic blood pressure 153 mm[Hg] 153 mm[Hg] e CW1 ([facility]) Diastolic blood pressure 67 mm[Hg] 67 mm[Hg] eCW1 ([facility]) Respiratory rate 18 /min 18 /min eCW1 ([facility]) Body height 68 [in_i] 68 [in_i] eCW1 ([facility]) Body temperature 98.4 [degF] 98.4 [degF] eCW1 ( [facility]) Systolic blood pressure 122 mm[Hg] 122 mm[Hg] e CW1 ([facility]) Diastolic blood pressure 58 mm[Hg] 58 mm[Hg] eCW1 ([facility]) Body weight 114 [lb_av] 114 [lb_av] eCW1 ([facility]) Body weight 51.71 kg 51.71 kg eCW1 ([facility]) Body mass index (BMI) [Ratio] 17.33 kg/m2 17.33 kg/m2 eCW1 ([facility]) Heart rate 72 /min 72 /min eCW1 ([facility]) Body weight 114 [lb_av] 114 [lb_av] eCW1 ([facility]) Body height 68 [in_i] 68 [in_i] eCW1 ([facility]) Body mass index (BMI) [Ratio] 17.33 kg/m2 17.33 kg/m2 eCW1 ([facility]) Heart rate 94 /min 94 /min eCW1 ([facility]) Respiratory rate 18 /min 18 /min eCW1 ([facility]) Body temperature 98.4 [degF] 98.4 [degF] eCW1 ( [facility]) Systolic blood pressure 127 mm[Hg] 127 mm[Hg] e CW1 ([facility]) Diastolic blood pressure 60 mm[Hg] 60 mm[Hg] eCW1 ([facility]) Body mass index (BMI) [Ratio] 17 kg/m2 17 kg/ m2 [place] ([facility]) Body height 68 [in_i] 68 [in_i] [place] ([facility]) Diastolic blood pressure 72 mm[Hg] 72 mm[Hg] [place] ([facility]) Systolic blood pressure 109 mm[Hg] 109 mm[Hg] A [facility] ([facility]) Body weight 1784 [oz_av] 1784 [oz_av] [place] ([facility]) Diastolic blood pressure 72 mm[Hg] 72 mm[Hg] [place] ([facility]) Body height 68 [in_i] 68 [in_i] [place] ([facility]) Body mass index (BMI) [Ratio] 17 kg/m2 17 kg/ m2 [place] ([facility]) Systolic blood pressure 109 mm[Hg] 109 mm[Hg] A [facility] ([facility]) Body weight 1784 [oz_av] 1784 [oz_av] [place] ([facility]) Diastolic blood pressure 72 mm[Hg] 72 mm[Hg] [place] ([facility]) Body height 68 [in_i] 68 [in_i] [place] ([facility]) Body mass index (BMI) [Ratio] 17 kg/m2 17 kg/ m2 [place] ([facility]) Systolic blood pressure 109 mm[Hg] 109 mm[Hg] A THENA ([facility]) Body weight 1784 [oz_av] 1784 [oz_av] [place] ([facility]) Body weight 114 [lb_av] 114 [lb_av] eCW1 ([facility]) Heart rate 74 /min 74 /min eCW1 ([facility]) Respiratory rate 18 /min 18 /min eCW1 ([facility]) Body height 68 [in_i] 68 [in_i] eCW1 ([facility]) Body mass index (BMI) [Ratio] 17.33 kg/m2 17.33 kg/m2 eCW1 ([facility]) Body temperature 98.3 [degF] 98.3 [degF] eCW1 ( [facility]) Systolic blood pressure 128 mm[Hg] 128 mm[Hg] e CW1 ([facility]) Diastolic blood pressure 58 mm[Hg] 58 mm[Hg] eCW1 ([facility]) Body weight 114 [lb_av] 114 [lb_av] eCW1 ([facility]) Body height 68 [in_i] 68 [in_i] eCW1 ([facility]) Body mass index (BMI) [Ratio] 18.4 kg/m2 18.4 k g/m2 eCW1 ([facility]) Heart rate 69 /min 69 /min eCW1 ([facility]) Respiratory rate 18 /min 18 /min eCW1 ([facility]) Body temperature 98.3 [degF] 98.3 [degF] eCW1 ( [facility]) Systolic blood pressure 107 mm[Hg] 107 mm[Hg] e CW1 ([facility]) Diastolic blood pressure 53 mm[Hg] 53 mm[Hg] eCW1 ([facility]) Diastolic blood pressure 55 mm[Hg] 55 mm[Hg] eCW1 ([facility]) Body weight 114 [lb_av] 114 [lb_av] eCW1 ([facility]) Body weight kg eCW1 ([facility]) Body height 68 [in_i] 68 [in_i] eCW1 ([facility]) Body mass index (BMI) [Ratio] 17.33 kg/m2 17.33 kg/m2 eCW1 ([facility]) Heart rate 81 /min 81 /min eCW1 ([facility]) Respiratory rate 18 /min 18 /min eCW1 ([facility]) Body temperature 97.0 [degF] 97.0 [degF] eCW1 ( [facility]) Systolic blood pressure 117 mm[Hg] 117 mm[Hg] e CW1 ([facility]) Diastolic blood pressure 68 mm[Hg] 68 mm[Hg] [place] ([facility]) Body height 68 [in_i] 68 [in_i] [place] ([facility]) Body mass index (BMI) [Ratio] 16.9 kg/m2 16.9 k g/m2 [place] ([facility]) Systolic blood pressure 104 mm[Hg] 104 mm[Hg] A [facility] ([facility]) Body weight 1778 [oz_av] 1778 [oz_av] [place] ([facility]) Body height 68 [in_i] 68 [in_i] [place] ([facility]) Body mass index (BMI) [Ratio] 16.9 kg/m2 16.9 k g/m2 [place] ([facility]) Systolic blood pressure 104 mm[Hg] 104 mm[Hg] A [facility] ([facility]) Body weight 1778 [oz_av] 1778 [oz_av] [place] ([facility]) Diastolic blood pressure 68 mm[Hg] 68 mm[Hg] [place] ([facility]) Diastolic blood pressure 68 mm[Hg] 68 mm[Hg] [place] ([facility]) Body height 68 [in_i] 68 [in_i] [place] ([facility]) Body mass index (BMI) [Ratio] 16.9 kg/m2 16.9 k g/m2 [place] ([facility]) Systolic blood pressure 104 mm[Hg] 104 mm[Hg] A THENA ([facility]) Body weight 1778 [oz_av] 1778 [oz_av] [place] ([facility]) Diastolic blood pressure 68 mm[Hg] 68 mm[Hg] [place] ([facility]) Body height 68 [in_i] 68 [in_i] [place] ([facility]) Body mass index (BMI) [Ratio] 16.9 kg/m2 16.9 k g/m2 [place] ([facility]) Systolic blood pressure 104 mm[Hg] 104 mm[Hg] A THENA ([facility]) Body weight 1778 [oz_av] 1778 [oz_av] [place] ([facility]) Body weight 114 [lb_av] 114 [lb_av] eCW1 ([facility]) Respiratory rate 18 /min 18 /min eCW1 ([facility]) Body temperature 94.7 [degF] 94.7 [degF] eCW1 ( [facility]) Systolic blood pressure 133 mm[Hg] 133 mm[Hg] e CW1 ([facility]) Diastolic blood pressure 60 mm[Hg] 60 mm[Hg] eCW1 ([facility]) Body weight kg eCW1 ([facility]) Body height 68 [in_i] 68 [in_i] eCW1 ([facility]) Body mass index (BMI) [Ratio] 17.33 kg/m2 17.33 kg/m2 W1 ([facility]) Heart rate 80 /min 80 /min eCW1 ([facility]) Body weight 114 [lb_av] 114 [lb_av] eCW1 ([facility]) Body weight kg eCW1 ([facility]) Body height 68 [in_i] 68 [in_i] eCW1 ([facility]) Body mass index (BMI) [Ratio] 17.33 kg/m2 17.33 kg/m2 eCW1 ([facility]) Heart rate 61 /min 61 /min eCW1 ([facility]) Respiratory rate 17 /min 17 /min eCW1 ([facility]) Body temperature 94.5 [degF] 94.5 [degF] eCW1 ( [facility]) Systolic blood pressure 142 mm[Hg] 142 mm[Hg] e CW1 ([facility]) Diastolic blood pressure 65 mm[Hg] 65 mm[Hg] eCW1 ([facility]) Respiratory rate 21 /min 21 /min eCW1 ([facility]) Body weight 114 [lb_av] 114 [lb_av] eCW1 ([facility]) Body weight kg eCW1 ([facility]) Systolic blood pressure 126 mm[Hg] 126 mm[Hg] e CW1 ([facility]) Diastolic blood pressure 55 mm[Hg] 55 mm[Hg] eCW1 ([facility]) Body height 68 [in_i] 68 [in_i] eCW1 ([facility]) Body mass index (BMI) [Ratio] 17.33 kg/m2 17.33 kg/m2 eCW1 ([facility]) Heart rate 94 /min 94 /min eCW1 ([facility]) Body temperature 97.1 [degF] 97.1 [degF] eCW1 ( [facility]) Body height 68 [in_i] 68 [in_i] [place] ([facility]) Body height 68 [in_i] 68 [in_i] [place] ([facility]) Body height 68 [in_i] 68 [in_i] [place] ([facility]) Body height 68 [in_i] 68 [in_i] [place] ([facility]) Body height 68 [in_i] 68 [in_i] [place] ([facility]) Body weight kg eCW1 ([facility]) Body weight 114 [lb_av] 114 [lb_av] eCW1 ([facility]) Body height 68 [in_i] 68 [in_i] eCW1 ([facility]) Body mass index (BMI) [Ratio] 17.33 kg/m2 17.33 kg/m2 eCW1 ([facility]) Heart rate 105 /min 105 /min eCW1 ([facility]) Respiratory rate 19 /min 19 /min eCW1 ([facility]) Body temperature 95.6 [degF] 95.6 [degF] eCW1 ( [facility]) Systolic blood pressure 139 mm[Hg] 139 mm[Hg] e CW1 ([facility]) Diastolic blood pressure 91 mm[Hg] 91 mm[Hg] eCW1 ([facility]) Body height 68 [in_i] 68 [in_i] [place] ([facility]) Diastolic blood pressure 72 mm[Hg] 72 mm[Hg] [place] ([facility]) Systolic blood pressure 112 mm[Hg] 112 mm[Hg] A [facility] ([facility]) Body weight 1832 [oz_av] 1832 [oz_av] [place] ([facility]) Body mass index (BMI) [Ratio] 17.4 kg/m2 17.4 k g/m2 [place] ([facility]) Diastolic blood pressure 72 mm[Hg] 72 mm[Hg] [place] ([facility]) Body height 68 [in_i] 68 [in_i] [place] ([facility]) Body mass index (BMI) [Ratio] 17.4 kg/m2 17.4 k g/m2 [place] ([facility]) Systolic blood pressure 112 mm[Hg] 112 mm[Hg] A THEN ([facility]) Body weight 1832 [oz_av] 1832 [oz_av] [place] ([facility]) Diastolic blood pressure 72 mm[Hg] 72 mm[Hg] [place] ([facility]) Body height 68 [in_i] 68 [in_i] [place] ([facility]) Body mass index (BMI) [Ratio] 17.4 kg/m2 17.4 k g/m2 [place] ([facility]) Systolic blood pressure 112 mm[Hg] 112 mm[Hg] A THENA ([facility]) Body weight 1832 [oz_av] 1832 [oz_av] [place] ([facility]) Diastolic blood pressure 72 mm[Hg] 72 mm[Hg] [place] ([facility]) Body height 68 [in_i] 68 [in_i] [place] ([facility]) Body mass index (BMI) [Ratio] 17.4 kg/m2 17.4 k g/m2 [place] ([facility]) Systolic blood pressure 112 mm[Hg] 112 mm[Hg] [facility] Body weight 1832 [oz_av] 1832 [oz_av] [place] ([facility]) Body weight 1832 [oz_av] 1832 [oz_av] [place] ([facility]) Diastolic blood pressure 72 mm[Hg] 72 mm[Hg] [place] ([facility]) Body height 68 [in_i] 68 [in_i] [place] ([facility]) Body mass index (BMI) [Ratio] 17.4 kg/m2 17.4 k g/m2 [place] ([facility]) Systolic blood pressure 112 mm[Hg] 112 mm[Hg] A THENA ([facility]) Diastolic blood pressure 72 mm[Hg] 72 mm[Hg] [place] ([facility]) Body height 68 [in_i] 68 [in_i] [place] ([facility]) Body mass index (BMI) [Ratio] 17.4 kg/m2 17.4 k g/m2 [place] ([facility]) Systolic blood pressure 112 mm[Hg] 112 mm[Hg] A THENA ([facility]) Body weight 1832 [oz_av] 1832 [oz_av] [place] ([facility]) Body weight 132 [lb_av] 132 [lb_av] eCW1 ([facility]) Body weight kg eCW1 ([facility]) Body height 68 [in_i] 68 [in_i] eCW1 ([facility]) Body mass index (BMI) [Ratio] 20.07 kg/m2 20.07 kg/m2 eCW1 ([facility]) Heart rate 89 /min 89 /min eCW1 ([facility]) Respiratory rate 18 /min 18 /min eCW1 ([facility]) Body temperature 96.7 [degF] 96.7 [degF] eCW1 ( [facility]) Systolic blood pressure 125 mm[Hg] 125 mm[Hg] e CW1 ([facility]) Diastolic blood pressure 60 mm[Hg] 60 mm[Hg] eCW1 ([facility]) Body weight 132 [lb_av] 132 [lb_av] eCW1 ([facility]) Body weight kg eCW1 ([facility]) Body height 68 [in_i] 68 [in_i] eCW1 ([facility]) Body mass index (BMI) [Ratio] 20.07 kg/m2 20.07 kg/m2 eCW1 ([facility]) Heart rate 102 /min 102 /min eCW1 ([facility]) Respiratory rate 18 /min 18 /min eCW1 ([facility]) Body temperature 98.3 [degF] 98.3 [degF] eCW1 ( [facility]) Systolic blood pressure 136 mm[Hg] 136 mm[Hg] e CW1 ([facility]) Diastolic blood pressure 64 mm[Hg] 64 mm[Hg] eCW1 ([facility]) Diastolic blood pressure 80 mm[Hg] 80 mm[Hg] eCW1 ([facility]) Body weight 132 [lb_av] 132 [lb_av] eCW1 ([facility]) Body weight kg eCW1 ([facility]) Body height 68 [in_i] 68 [in_i] eCW1 ([facility]) Body mass index (BMI) [Ratio] 20.07 kg/m2 20.07 kg/m2 eCW1 ([facility]) Heart rate 96 /min 96 /min eCW1 ([facility]) Respiratory rate 18 /min 18 /min eCW1 ([facility]) Body temperature 98.2 [degF] 98.2 [degF] eCW1 ( [facility]) Systolic blood pressure 128 mm[Hg] 128 mm[Hg] e CW1 ([facility]) Body weight 132 [lb_av] 132 [lb_av] eCW1 ([facility]) Body weight kg eCW1 ([facility]) Body height 68 [in_i] 68 [in_i] eCW1 ([facility]) Body mass index (BMI) [Ratio] 20.07 kg/m2 20.07 kg/m2 eCW1 ([facility]) Heart rate 98 /min 98 /min eCW1 ([facility]) Respiratory rate 18 /min 18 /min eCW1 ([facility]) Body temperature 98.4 [degF] 98.4 [degF] eCW1 ( [facility]) Systolic blood pressure 134 mm[Hg] 134 mm[Hg] e CW1 ([facility]) Diastolic blood pressure 52 mm[Hg] 52 mm[Hg] eCW1 ([facility]) Body weight 132 [lb_av] 132 [lb_av] eCW1 ([facility]) Body weight kg eCW1 ([facility]) Body height 68 [in_i] 68 [in_i] eCW1 ([facility]) Body mass index (BMI) [Ratio] 20.07 kg/m2 20.07 kg/m2 eCW1 ([facility]) Heart rate 53 /min 53 /min eCW1 ([facility]) Respiratory rate 16 /min 16 /min eCW1 ([facility]) Body temperature 97.8 [degF] 97.8 [degF] eCW1 ( [facility]) Systolic blood pressure 147 mm[Hg] 147 mm[Hg] e CW1 ([facility]) Diastolic blood pressure 65 mm[Hg] 65 mm[Hg] eCW1 ([facility]) Body weight 132 [lb_av] 132 [lb_av] eCW1 ([facility]) Body weight kg eCW1 ([facility]) Body height 68 [in_i] 68 [in_i] eCW1 ([facility]) Body mass index (BMI) [Ratio] 20.07 kg/m2 20.07 kg/m2 eCW1 ([facility]) Heart rate 77 /min 77 /min eCW1 ([facility]) Respiratory rate 16 /min 16 /min eCW1 ([facility]) Body temperature 94.7 [degF] 94.7 [degF] eCW1 ( [facility]) Systolic blood pressure 127 mm[Hg] 127 mm[Hg] e CW1 ([facility]) Diastolic blood pressure 67 mm[Hg] 67 mm[Hg] eCW1 ([facility]) Body mass index (BMI) [Ratio] 20.1 kg/m2 20.1 k g/m2 MED[facility] ([facility] Body height 68 [in_i] 68 [in_i] MEDENT ([facility] 5'8" Body weight 132.00 [lb_av] 132.00 [lb_av] MEDEN T ([facility] Systolic blood pressure 130 mm[Hg] 130 mm[Hg] M EDENT ([facility] Diastolic blood pressure 68 mm[Hg] 68 mm[Hg] [facility] ([facility] Heart rate 78 /min 78 /min MEDENT ([facility] Body height 68 [in_i] 68 [in_i] eCW1 ([facility]) Body weight 132 [lb_av] 132 [lb_av] eCW1 ([facility]) Body weight kg eCW1 ([facility]) Body mass index (BMI) [Ratio] 20.07 kg/m2 20.07 kg/m2 eCW1 ([facility]) Heart rate 91 /min 91 /min eCW1 ([facility]) Respiratory rate 18 /min 18 /min eCW1 ([facility]) Body temperature 96.9 [degF] 96.9 [degF] eCW1 ( [facility]) Systolic blood pressure 128 mm[Hg] 128 mm[Hg] e CW1 ([facility]) Diastolic blood pressure 59 mm[Hg] 59 mm[Hg] eCW1 ([facility]) Body weight 132 [lb_av] 132 [lb_av] eCW1 ([facility]) Body weight kg eCW1 ([facility]) Body height 68 [in_i] 68 [in_i] eCW1 ([facility]) Body mass index (BMI) [Ratio] 20.07 kg/m2 20.07 kg/m2 eCW1 ([facility]) Heart rate 67 /min 67 /min eCW1 ([facility]) Respiratory rate 20 /min 20 /min eCW1 ([facility]) Body temperature 98.2 [degF] 98.2 [degF] eCW1 ( [facility]) Systolic blood pressure 168 mm[Hg] 168 mm[Hg] e CW1 ([facility]) Diastolic blood pressure 72 mm[Hg] 72 mm[Hg] eCW1 ([facility]) Body weight 132 [lb_av] 132 [lb_av] eCW1 ([facility]) Body weight kg eCW1 ([facility]) Body height 68 [in_i] 68 [in_i] eCW1 ([facility]) Body mass index (BMI) [Ratio] 20.07 kg/m2 20.07 kg/m2 eCW1 ([facility]) Heart rate 81 /min 81 /min eCW1 ([facility]) Respiratory rate 19 /min 19 /min eCW1 ([facility]) Body temperature 95.7 [degF] 95.7 [degF] eCW1 ( [facility]) Systolic blood pressure 122 mm[Hg] 122 mm[Hg] e CW1 ([facility]) Diastolic blood pressure 57 mm[Hg] 57 mm[Hg] eCW1 ([facility]) Body weight 132 [lb_av] 132 [lb_av] eCW1 ([facility]) Body weight kg eCW1 ([facility]) Body height 68 [in_i] 68 [in_i] eCW1 ([facility]) Body mass index (BMI) [Ratio] 20.07 kg/m2 20.07 kg/m2 eCW1 ([facility]) Heart rate 97 /min 97 /min eCW1 ([facility]) Respiratory rate 17 /min 17 /min eCW1 ([facility]) Body temperature 97.3 [degF] 97.3 [degF] eCW1 ( [facility]) Systolic blood pressure 121 mm[Hg] 121 mm[Hg] e CW1 ([facility]) Diastolic blood pressure 69 mm[Hg] 69 mm[Hg] eCW1 ([facility]) Body weight 115 [lb_av] 115 [lb_av] eCW1 ([facility]) Body weight kg eCW1 ([facility]) Body height 68 [in_i] 68 [in_i] eCW1 ([facility]) Body mass index (BMI) [Ratio] 17.48 kg/m2 17.48 kg/m2 eCW1 ([facility]) Heart rate 91 /min 91 /min eCW1 ([facility]) Respiratory rate 18 /min 18 /min eCW1 ([facility]) Body temperature 98.3 [degF] 98.3 [degF] eCW1 ( [facility]) Systolic blood pressure 132 mm[Hg] 132 mm[Hg] e CW1 ([facility]) Diastolic blood pressure 64 mm[Hg] 64 mm[Hg] eCW1 ([facility]) Body weight 115 [lb_av] 115 [lb_av] eCW1 ([facility]) Body weight kg eCW1 ([facility]) Body height 68 [in_i] 68 [in_i] eCW1 ([facility]) Body mass index (BMI) [Ratio] 17.48 kg/m2 17.48 kg/m2 eCW1 ([facility]) Heart rate 88 /min 88 /min eCW1 ([facility]) Respiratory rate 18 /min 18 /min eCW1 ([facility]) Body temperature 98.2 [degF] 98.2 [degF] eCW1 ( [facility]) Systolic blood pressure 142 mm[Hg] 142 mm[Hg] e CW1 ([facility]) Diastolic blood pressure 77 mm[Hg] 77 mm[Hg] eCW1 ([facility]) Body weight 115 [lb_av] 115 [lb_av] eCW1 ([facility]) Body weight kg eCW1 ([facility]) Body height 68 [in_i] 68 [in_i] eCW1 ([facility]) Body mass index (BMI) [Ratio] 17.48 kg/m2 17.48 kg/m2 eCW1 ([facility]) Heart rate 95 /min 95 /min eCW1 ([facility]) Respiratory rate 18 /min 18 /min eCW1 ([facility]) Body temperature 98.2 [degF] 98.2 [degF] eCW1 ( [facility]) Systolic blood pressure 134 mm[Hg] 134 mm[Hg] e CW1 ([facility]) Diastolic blood pressure 65 mm[Hg] 65 mm[Hg] eCW1 ([facility]) Body weight 115 [lb_av] 115 [lb_av] eCW1 ([facility]) Body weight kg eCW1 ([facility]) Body height 68 [in_i] 68 [in_i] eCW1 ([facility]) Body mass index (BMI) [Ratio] 17.48 kg/m2 17.48 kg/m2 eCW1 ([facility]) Heart rate 67 /min 67 /min eCW1 ([facility]) Respiratory rate 18 /min 18 /min eCW1 ([facility]) Body temperature 95.5 [degF] 95.5 [degF] eCW1 ( [facility]) Systolic blood pressure 126 mm[Hg] 126 mm[Hg] e CW1 ([facility]) Diastolic blood pressure 58 mm[Hg] 58 mm[Hg] eCW1 ([facility]) Body weight 115 [lb_av] 115 [lb_av] eCW1 ([facility]) Body height 68 [in_i] 68 [in_i] eCW1 ([facility]) Body mass index (BMI) [Ratio] 17.48 kg/m2 17.48 kg/m2 eCW1 ([facility]) Heart rate 95 /min 95 /min eCW1 ([facility]) Respiratory rate 18 /min 18 /min eCW1 ([facility]) Body temperature 98 [degF] 98 [degF] eCW1 ([facility]) Systolic blood pressure 127 mm[Hg] 127 mm[Hg] e CW1 ([facility]) Diastolic blood pressure 61 mm[Hg] 61 mm[Hg] eCW1 ([facility]) Body weight 115 [lb_av] 115 [lb_av] eCW1 ([facility]) Body weight kg eCW1 ([facility]) Body height 68 [in_i] 68 [in_i] eCW1 ([facility]) Body mass index (BMI) [Ratio] 17.48 kg/m2 17.48 kg/m2 eCW1 ([facility]) Heart rate 89 /min 89 /min eCW1 ([facility]) Respiratory rate 18 /min 18 /min eCW1 ([facility]) Body temperature 97 [degF] 97 [degF] eCW1 ([facility]) Systolic blood pressure 132 mm[Hg] 132 mm[Hg] e CW1 ([facility]) Diastolic blood pressure 61 mm[Hg] 61 mm[Hg] eCW1 ([facility]) Body weight 115 [lb_av] 115 [lb_av] eCW1 ([facility]) Body weight kg eCW1 ([facility]) Body height 68 [in_i] 68 [in_i] eCW1 ([facility]) Body mass index (BMI) [Ratio] 17.48 kg/m2 17.48 kg/m2 eCW1 ([facility]) Heart rate 102 /min 102 /min eCW1 ([facility]) Respiratory rate 19 /min 19 /min eCW1 ([facility]) Body temperature 96.2 [degF] 96.2 [degF] eCW1 ( [facility]) Systolic blood pressure 123 mm[Hg] 123 mm[Hg] e CW1 ([facility]) Diastolic blood pressure 74 mm[Hg] 74 mm[Hg] eCW1 ([facility]) Body temperature 97.3 [degF] 97.3 [degF] MEDENT ([facility]) Body weight 115 [lb_av] 115 [lb_av] eCW1 ([facility]) Body height 68 [in_i] 68 [in_i] eCW1 ([facility]) Body mass index (BMI) [Ratio] 17.48 kg/m2 17.48 kg/m2 eCW1 ([facility]) Heart rate 74 /min 74 /min eCW1 ([facility]) Respiratory rate 18 /min 18 /min eCW1 ([facility]) Body temperature 96.6 [degF] 96.6 [degF] eCW1 ( [facility]) Systolic blood pressure 134 mm[Hg] 134 mm[Hg] e CW1 ([facility]) Diastolic blood pressure 60 mm[Hg] 60 mm[Hg] eCW1 ([facility]) Respiratory rate 18 /min 18 /min eCW1 ([facility]) Body temperature 96.9 [degF] 96.9 [degF] eCW1 ( [facility]) Systolic blood pressure 117 mm[Hg] 117 mm[Hg] e CW1 ([facility]) Diastolic blood pressure 57 mm[Hg] 57 mm[Hg] eCW1 ([facility]) Body weight 115 [lb_av] 115 [lb_av] eCW1 ([facility]) Body weight kg eCW1 ([facility]) Body height 68 [in_i] 68 [in_i] eCW1 ([facility]) Body mass index (BMI) [Ratio] 17.48 kg/m2 17.48 kg/m2 eCW1 ([facility]) Heart rate 80 /min 80 /min eCW1 ([facility]) Body mass index (BMI) [Ratio] 17.48 kg/m2 17.48 kg/m2 eCW1 ([facility]) Body weight 115 [lb_av] 115 [lb_av] eCW1 ([facility]) Body weight kg eCW1 ([facility]) Body height 68 [in_i] 68 [in_i] eCW1 ([facility]) Body temperature 98.5 [degF] 98.5 [degF] eCW1 ( [facility]) Heart rate 98 /min 98 /min eCW1 ([facility]) Systolic blood pressure 117 mm[Hg] 117 mm[Hg] e CW1 ([facility]) Respiratory rate 18 /min 18 /min eCW1 ([facility]) Diastolic blood pressure 60 mm[Hg] 60 mm[Hg] eCW1 ([facility]) Body temperature 96.9 [degF] 96.9 [degF] MEDENT ([facility]) Body weight 115 [lb_av] 115 [lb_av] eCW1 ([facility]) Body mass index (BMI) [Ratio] 17.48 kg/m2 17.48 kg/m2 eCW1 ([facility]) Body weight kg eCW1 ([facility]) Heart rate 65 /min 65 /min eCW1 ([facility]) Body temperature 97.7 [degF] 97.7 [degF] eCW1 ( [facility]) Body height 68 [in_i] 68 [in_i] eCW1 ([facility]) Respiratory rate 18 /min 18 /min eCW1 ([facility]) Systolic blood pressure 109 mm[Hg] 109 mm[Hg] e CW1 ([facility]) Diastolic blood pressure 74 mm[Hg] 74 mm[Hg] eCW1 ([facility]) Body weight kg eCW1 ([facility]) Body mass index (BMI) [Ratio] 17.48 kg/m2 17.48 kg/m2 eCW1 ([facility]) Respiratory rate 17 /min 17 /min eCW1 ([facility]) Body temperature 98.8 [degF] 98.8 [degF] eCW1 ( [facility]) Body weight 115 [lb_av] 115 [lb_av] eCW1 ([facility]) Body height 68 [in_i] 68 [in_i] eCW1 ([facility]) Body weight 115 [lb_av] 115 [lb_av] eCW1 ([facility]) Body weight kg eCW1 ([facility]) Body height 68 [in_i] 68 [in_i] eCW1 ([facility]) Body mass index (BMI) [Ratio] 17.48 kg/m2 17.48 kg/m2 eCW1 ([facility]) Heart rate 95 /min 95 /min eCW1 ([facility]) Respiratory rate 20 /min 20 /min eCW1 ([facility]) Body temperature 95.8 [degF] 95.8 [degF] eCW1 ( [facility]) Systolic blood pressure 136 mm[Hg] 136 mm[Hg] e CW1 ([facility]) Diastolic blood pressure 61 mm[Hg] 61 mm[Hg] eCW1 ([facility]) Body weight 115 [lb_av] 115 [lb_av] eCW1 ([facility]) Body weight kg eCW1 ([facility]) Body height 68 [in_i] 68 [in_i] eCW1 ([facility]) Body mass index (BMI) [Ratio] 17.48 kg/m2 17.48 kg/m2 eCW1 ([facility]) Heart rate 99 /min 99 /min eCW1 ([facility]) Respiratory rate 19 /min 19 /min eCW1 ([facility]) Body temperature 97.9 [degF] 97.9 [degF] eCW1 ( [facility]) Systolic blood pressure 137 mm[Hg] 137 mm[Hg] e CW1 ([facility]) Diastolic blood pressure 73 mm[Hg] 73 mm[Hg] eCW1 ([facility]) Body weight 115 [lb_av] 115 [lb_av] eCW1 ([facility]) Body weight kg eCW1 ([facility]) Body height 68 [in_i] 68 [in_i] eCW1 ([facility]) Body mass index (BMI) [Ratio] 17.48 kg/m2 17.48 kg/m2 eCW1 ([facility]) Heart rate 98 /min 98 /min eCW1 ([facility]) Respiratory rate 16 /min 16 /min eCW1 ([facility]) Body temperature 95.5 [degF] 95.5 [degF] eCW1 ( [facility]) Systolic blood pressure 119 mm[Hg] 119 mm[Hg] e CW1 ([facility]) Diastolic blood pressure 59 mm[Hg] 59 mm[Hg] eCW1 ([facility]) Body weight 115 [lb_av] 115 [lb_av] eCW1 ([facility]) Body weight kg eCW1 ([facility]) Body height 68 [in_i] 68 [in_i] eCW1 ([facility]) Body mass index (BMI) [Ratio] 17.48 kg/m2 17.48 kg/m2 eCW1 ([facility]) Heart rate 95 /min 95 /min eCW1 ([facility]) Respiratory rate 18 /min 18 /min eCW1 ([facility]) Body temperature 97.9 [degF] 97.9 [degF] eCW1 ( [facility]) Systolic blood pressure 128 mm[Hg] 128 mm[Hg] e CW1 ([facility]) Diastolic blood pressure 61 mm[Hg] 61 mm[Hg] eCW1 ([facility]) Body weight 115 [lb_av] 115 [lb_av] eCW1 ([facility]) Systolic blood pressure 106 mm[Hg] 106 mm[Hg] e CW1 ([facility]) Diastolic blood pressure 63 mm[Hg] 63 mm[Hg] eCW1 ([facility]) Body height 68 [in_i] 68 [in_i] eCW1 ([facility]) Body mass index (BMI) [Ratio] 17.48 kg/m2 17.48 kg/m2 eCW1 ([facility]) Heart rate 103 /min 103 /min eCW1 ([facility]) Respiratory rate 20 /min 20 /min eCW1 ([facility]) Body temperature 97 [degF] 97 [degF] eCW1 ([facility]) Body weight 115 [lb_av] 115 [lb_av] eCW1 ([facility]) Body weight kg eCW1 ([facility]) Body height 68 [in_i] 68 [in_i] eCW1 ([facility]) Body mass index (BMI) [Ratio] 17.48 kg/m2 17.48 kg/m2 eCW1 ([facility]) Heart rate 93 /min 93 /min eCW1 ([facility]) Respiratory rate 16 /min 16 /min eCW1 ([facility]) Body temperature 97.7 [degF] 97.7 [degF] eCW1 ( [facility]) Systolic blood pressure 134 mm[Hg] 134 mm[Hg] e CW1 ([facility]) Diastolic blood pressure 63 mm[Hg] 63 mm[Hg] eCW1 ([facility]) Patient Treatment Plan of Care Planned Activity Planned Date Details Description Data Source (s) NITROFURANTOIN, MACROCRYSTALS 25 MG / Ni trofurantoin, Monohydrate 75 MG Oral Capsule ROSEMARY ([facility]) Mupirocin 0.02 MG/MG Topical Ointment ROSEMARY ([facility]) Ibuprofen 600 MG Oral Tablet ROSEMARY ([facility]) Furosemide 20 MG Oral Tablet ROSEMARY ([facility]) Fluconazole 150 MG Oral Tablet ROSEMARY ([facility]) Cephalexin 500 MG Oral Capsule ROSEMARY ([facility]) NITROFURANTOIN, MACROCRYSTALS 25 MG / Ni trofurantoin, Monohydrate 75 MG Oral Capsule ROSEMARY ([facility]) Mupirocin 0.02 MG/MG Topical Ointment ROSEMARY ([facility]) Ibuprofen 600 MG Oral Tablet ROSEMARY ([facility]) Furosemide 20 MG Oral Tablet ROSEMARY ([facility]) Fluconazole 150 MG Oral Tablet ROSEMARY ([facility]) Cephalexin 500 MG Oral Capsule ROSEMARY ([facility]) NITROFURANTOIN, MACROCRYSTALS 25 MG / Ni trofurantoin, Monohydrate 75 MG Oral Capsule ROSEMARY ([facility]) Mupirocin 0.02 MG/MG Topical Ointment ROSEMARY ([facility]) Ibuprofen 600 MG Oral Tablet ROSEMARY ([facility]) Furosemide 20 MG Oral Tablet ROSEMARY ([facility]) Fluconazole 150 MG Oral Tablet ROSEMARY ([facility]) Cephalexin 500 MG Oral Capsule ROSEMARY ([facility]) NITROFURANTOIN, MACROCRYSTALS 25 MG / Ni trofurantoin, Monohydrate 75 MG Oral Capsule ROSEMARY ([facility]) Mupirocin 0.02 MG/MG Topical Ointment ROSEMARY ([facility]) Ibuprofen 600 MG Oral Tablet ROSEMARY ([facility]) Furosemide 20 MG Oral Tablet ROSEMARY ([facility]) Fluconazole 150 MG Oral Tablet ROSEMARY ([facility]) Cephalexin 500 MG Oral Capsule ROSEMARY ([facility]) NITROFURANTOIN, MACROCRYSTALS 25 MG / Ni trofurantoin, Monohydrate 75 MG Oral Capsule ROSEMARY ([facility]) Mupirocin 0.02 MG/MG Topical Ointment ROSEMARY ([facility]) Ibuprofen 600 MG Oral Tablet ROSEMARY ([facility]) Furosemide 20 MG Oral Tablet ROSEMARY ([facility]) Fluconazole 150 MG Oral Tablet ROSEMARY ([facility]) Cephalexin 500 MG Oral Capsule ROSEMARY ([facility]) NITROFURANTOIN, MACROCRYSTALS 25 MG / Ni trofurantoin, Monohydrate 75 MG Oral Capsule ROSEMARY ([facility]) Mupirocin 0.02 MG/MG Topical Ointment ROSEMARY ([facility]) Ibuprofen 600 MG Oral Tablet ROSEMARY ([facility]) Furosemide 20 MG Oral Tablet ROSEMARY ([facility]) Fluconazole 150 MG Oral Tablet ROSEMARY ([facility]) Cephalexin 500 MG Oral Capsule ROSEMARY ([facility])
--- NOTE | 2021-08-07 23:37 | REPVR ---
PROCEDURE INFORMATION: Exam: XR Left Tibia and Fibula Exam date and time: 08/07/2021 10:55 PM Age: 76 years old Clinical indication: Pain; Lower leg; Left; Additional info: Leg pain TECHNIQUE: Imaging protocol: XR Left tibia and fibula. Views: 2 views. COMPARISON: CR Tibia, Fibula lower leg 11/11/2014 4:43 PM FINDINGS: Bones/joints: There is no fracture, dislocation, or bony destructive changes involving the left knee, left tibia, left fibula, or left ankle. There is thickening of the cortex of the left distal fibula, which has developed since the left tibia and fibula x-rays on 11/11/2014. There is chondrocalcinosis involving the medial and lateral compartments of the left knee. No left knee joint effusion is noted. Soft tissues: There is soft tissue swelling around the left ankle. There is a spur arising from the superior pole of the patella at the insertion of the left quadriceps tendon, which is compatible with a left quadriceps enthesopathy. There is a posterior calcaneal spur at the insertion of the Achilles tendon, which is compatible with a left Achilles enthesopathy. There is a plantar calcaneal spur at the origin of the left plantar fascia. Vasculature: There are atherosclerotic calcifications. IMPRESSION: 1. Thickening of the cortex of the left distal fibula, which has developed since the left tibia and fibula x-rays on 11/11/2014 may be secondary to old trauma or stress related changes. 2. Soft tissue swelling around the left ankle. Electronically signed by: Levon Gipson On 08/07/2021 23:36:16 PM
--- NOTE | 2021-08-07 23:37 | REPVR ---
PROCEDURE INFORMATION: Exam: XR Left Ankle Exam date and time: 08/07/2021 10:55 PM Age: 76 years old Clinical indication: Pain; Ankle; Left; Additional info: Leg pain TECHNIQUE: Imaging protocol: XR Left ankle. Views: 3 or more views. COMPARISON: CR Tibia, Fibula lower leg 11/11/2014 4:43 PM FINDINGS: Bones/joints: There is no fracture, dislocation, or bony destructive changes involving the left ankle. The ankle mortise is symmetric. There is thickening of the cortex of the left distal fibula, which has developed since the left tibia and fibula x-rays on 11/11/2014. Soft tissues: There is soft tissue swelling around the left ankle. There is a posterior calcaneal spur at the insertion of the Achilles tendon, which is compatible with a left Achilles enthesopathy. There is a plantar calcaneal spur at the origin of the left plantar fascia. Vasculature: There are atherosclerotic calcifications. IMPRESSION: 1. Thickening of the cortex of the left distal fibula, which has developed since the left tibia and fibula x-rays on 11/11/2014 may be secondary to old trauma or stress related changes. 2. Soft tissue swelling around the left ankle. Electronically signed by: Levon Gipson On 08/07/2021 23:36:22 PM
--- NOTE | 2021-08-07 23:39 | REPVR ---
PROCEDURE INFORMATION: Exam: XR Chest Exam date and time: 08/07/2021 10:55 PM Age: 76 years old Clinical indication: Shortness of breath; Additional info: Leg pain TECHNIQUE: Imaging protocol: XR of the chest. Views: 1 view. COMPARISON: CR Ribs uni W-PA CHEST ONLY 05/15/2021 11:29 AM (The report from this study was not available for review at the time of this interpretation.) FINDINGS: Lungs: There is scarring of the lung apices. No lung consolidation or pulmonary edema is noted. Pleural spaces: Unremarkable. No pleural effusion. No pneumothorax. Heart/Mediastinum: No cardiomegaly. The meek are elevated, which is similar in appearance compared to the chest x-ray on 05/15/2021. Vasculature: There are atherosclerotic calcifications of the aortic arch. Bones/joints: Unremarkable. IMPRESSION: No acute findings. No significant change compared to the prior chest x-ray on 05/15/2021. Electronically signed by: Levon Gipson On 08/07/2021 23:38:49 PM
[2021-08-08 00:10] LABS: BASO % 0.3 % (0.0-1.0); HEMATOCRIT 29.7 % (36.0-47.0); HEMOGLOBIN 9.4 g/dl (12.0-15.5); LYMPH % 9.6 % (24.0-44.0); MEAN CORPUSCULAR HEMOGLOBIN 27.2 pg (27.0-33.0); MEAN CORPUSCULAR HGB CONC 31.6 g/dl (32.0-36.5); MEAN CORPUSCULAR VOLUME 86.1 fl (80.0-96.0); MONO # 0.4 10^3/uL (0.0-0.8); NEUTROPHILS # 8.7 10^3/uL (1.5-8.5); NEUTROPHILS % 85.5 % (36.0-66.0); RED BLOOD COUNT 3.45 10^6/uL (4.00-5.40); WHITE BLOOD COUNT 10.2 10^3/uL (4.0-10.0)
[2021-08-08 00:13] LABS: PLATELET COUNT, AUTOMATED 86 10^3/uL (150-450)
[2021-08-08 00:31] LABS: ALBUMIN 2.7 GM/DL (3.2-5.2); ALT/SGPT 18 U/L (12-78); BILIRUBIN,TOTAL 0.8 MG/DL (0.2-1.0); BLOOD UREA NITROGEN 19 MG/DL (7-18); CALCIUM LEVEL 8.1 MG/DL (8.8-10.2); CARBON DIOXIDE LEVEL 25 MEQ/L (21-32); CHLORIDE LEVEL 107 MEQ/L (98-107); CREATININE FOR GFR 0.84 MG/DL (0.55-1.30); GLOMERULAR FILTRATION RATE > 60.0 (>39); GLUCOSE, FASTING 162 MG/DL (70-100); POTASSIUM SERUM 3.1 MEQ/L (3.5-5.1); SODIUM LEVEL 139 MEQ/L (136-145); TOTAL PROTEIN 7.2 GM/DL (6.4-8.2)
[2021-08-08 00:37] LABS: ERYTHROCYTE SEDIMENTATION RATE 81 mm/hr (0-30)
--- OUTSIDE RECORDS SUMMARY | 2021-08-08 00:55 | CCD ---
Author Author [facility] Organization [facility] Address Unknown Phone Unavailable Care Team Providers Care Per Diem Name Role Phone Dewayne Banerjee MD Unavailable [...] Banerjee MD Unavailable Unavailable Steve, A Leatha LICENSING REGISTRATION EXAMINER Unavailable Unavailable Steve, A Leatha LICENSING REGISTRATION EXAMINER Unavailable Unavailable Steve, A Leatha LICENSING REGISTRATION EXAMINER Unavailable Unavailable Steve, A Leatha LICENSING REGISTRATION EXAMINER Unavailable Unavailable Steve, A Leatha LICENSING REGISTRATION EXAMINER Unavailable Unavailable Steve, A Leatha LICENSING REGISTRATION EXAMINER Unavailable Unavailable Steve, A Leatha LICENSING REGISTRATION EXAMINER Unavailable Unavailable Steve, A Leatha LICENSING REGISTRATION EXAMINER Unavailable Unavailable Steve, A Leatha LICENSING REGISTRATION EXAMINER Unavailable Unavailable Steve, A Leatha LICENSING REGISTRATION EXAMINER Unavailable Unavailable Steve, A Leatha LICENSING REGISTRATION EXAMINER Unavailable Unavailable Steve, A Leatha LICENSING REGISTRATION EXAMINER Unavailable Unavailable Steve, A Leatha LICENSING REGISTRATION EXAMINER Unavailable Unavailable Steve, A Leatha LICENSING REGISTRATION EXAMINER Unavailable Unavailable Steve, A Leatha LICENSING REGISTRATION EXAMINER Unavailable Unavailable Steve, A Leatha LICENSING REGISTRATION EXAMINER Unavailable Unavailable Steve, A Leatha LICENSING REGISTRATION EXAMINER Unavailable Unavailable Steve, A Leatha LICENSING REGISTRATION EXAMINER Unavailable Unavailable Steve, A Leatha LICENSING REGISTRATION EXAMINER Unavailable Unavailable Steve, A Leatha LICENSING REGISTRATION EXAMINER Unavailable Unavailable Steve, A Leatha LICENSING REGISTRATION EXAMINER Unavailable Unavailable Steve, A Leatha LICENSING REGISTRATION EXAMINER Unavailable Unavailable Steve, A Leatha LICENSING REGISTRATION EXAMINER Unavailable Unavailable Steve, A Leatha LICENSING REGISTRATION EXAMINER Unavailable Unavailable Steve, A Leatha LICENSING REGISTRATION EXAMINER Unavailable Unavailable Steve, A Leatha LICENSING REGISTRATION EXAMINER Unavailable Unavailable Steve, A Leatha LICENSING REGISTRATION EXAMINER Unavailable Unavailable Steve, A Leatha LICENSING REGISTRATION EXAMINER Unavailable Unavailable Steve, A Leatha LICENSING REGISTRATION EXAMINER Unavailable Unavailable Steve, A Leatha LICENSING REGISTRATION EXAMINER Unavailable Unavailable Steve, A Leatha LICENSING REGISTRATION EXAMINER Unavailable Unavailable EGNACZAK, M EMELI TILE MASON Unavailable Unavailable EGNACZAK, M EMELI TILE MASON Unavailable Unavailable EGNACZAK, M EMELI TILE MASON Unavailable Unavailable EGNACZAK, M EMELI TILE MASON Unavailable Unavailable EGNACZAK, M EMELI TILE MASON Unavailable Unavailable EGNACZAK, M EMELI TILE MASON Unavailable Unavailable EGNACZAK, M EMELI TILE MASON Unavailable Unavailable EGNACZAK, M EMELI TILE MASON Unavailable Unavailable EGNACZAK, M EMELI TILE MASON Unavailable Unavailable EGNACZAK, M EMELI TILE MASON Unavailable Unavailable EGNACZAK, M EMELI TILE MASON Unavailable Unavailable MAJAK, R PEGGY DPM Unavailable [...] is protected by Article 27-F of the [facility] Public Health law. If you continue you may have access to information: Regarding HIV / AIDS; Provided by facilities licensed or operated by the [facility] Office of Mental Health; or Provided by the [facility] Office for People With Developmental Disabilities. If such information is present, then the following [facility] mandated warning applies: This information has been [...] law may result in a fine or mcc sentence or both. A general authorization for the release of medical or other information is NOT sufficient authorization for further disc losure. Family History Family Member Name Family Member Gender Family Member Status Date o f Status Description Data Source(s) Unknown Male Problem MED[facility] ([facility]) Encounters Encounter Providers Location Date Indications Data Source(s ) Unknown [address] [facility] [place] [address] 08/04/2021 12:00:00 AM EST eCW1 ([facility]) Unknown [address] [facility] [place] [address] 08/03/2021 12:00:00 AM EST eCW1 ([facility]) ([id number]) For Template Turner [address] [place] [address] 07/26/2021 12:00:00 AM EST eCW1 ([facility]) ([id number]) For Template Turner [address] [place] [phone] 07/20/2021 12:00:00 AM EST eCW1 ([facility]) ([id number]) For Template Turner [address] [place] [phone] 07/13/2021 12:00:00 AM EST eCW1 ([facility]) Unknown [address] [facility] [id number] 07/03/2021 12:00:00 AM EDT eCW1 ([facility]) ([id number]) For Template Turner [address] [place] [phone] 06/30/2021 12:00:00 AM EDT eCW1 ([facility]) Jon Banerjee MD: [address] [place] [phone], Ph. Attender: Jon Banerjee MD [facility] Medical 06/26/2021 12:00:00 AM EDT [place] ([facility]) ([id number]) For Template Turner [address] [place] [phone] 06/23/2021 12:00:00 AM EDT eCW1 ([facility]) Outpatient Attender: EMELI DONALDSON TILE MASON [facility] 06/21/2021 12:00:00 AM EDT [facility] ([id number]) For Template Turner [address] [place] [address] 06/16/2021 12:00:00 AM EDT eCW1 ([facility]) ([id number]) For Template Turner [address] [place] [phone] 06/09/2021 12:00:00 AM EDT eCW1 ([facility]) Unknown [address] [facility] [address] 06/02/2021 12:00:00 AM EDT eCW1 ([facility]) Jon Banerjee MD: [address] [place] [phone], Ph. Attender: Jon Banerjee MD [facility] Medical 06/01/2021 12:00:00 AM EDT [place] ([facility]) Jon Banerjee MD: [address] [place] [phone], Ph. Attender: Jon Banerjee MD [facility] Medical 06/01/2021 12:00:00 AM EDT [place] ([facility]) ([id number]) For Template Turner [facility] [place] [address] 05/19/2021 12:00:00 AM EDT eCW1 ([facility]) Unknown [address] [facility] [address] 05/17/2021 12:00:00 AM EDT eCW1 ([facility]) ([id number]) For Template Turner [facility] [place] [address] 05/12/2021 12:00:00 AM EDT eCW1 ([facility]) Unknown [address] [facility] [address] 05/05/2021 12:00:00 AM EDT eCW1 ([facility]) Unknown [address] [facility] [address] 04/26/2021 12:00:00 AM EDT eCW1 ([facility]) ([id number]) For Template Turner [address] [place] [phone] 04/21/2021 12:00:00 AM EDT eCW1 ([facility]) [facility] [address], [place] [address], Ph. Attender: Leatha Wilson [facility] Medical 04/20/2021 12:00:00 AM EDT [place] ([facility]) [facility] [address] [place] [address], Ph. Attender: Leatha Wilson [facility] Medical 04/20/2021 12:00:00 AM EDT [place] ([facility]) [facility] [address] [place] [address], Ph. Attender: Leatha Wilson [facility] Medical 04/20/2021 12:00:00 AM EDT [place] ([facility]) Office Visit, Est Pt., Level 2 FC [address] [place] [address] 04/14/2021 12:00:00 AM EDT eCW1 ([facility]) Unknown [address] [facility], [facility] [address] 04/14/2021 12:00:00 AM EDT eCW1 ([facility]) ([id number]) For Template Turner [address] [place] [phone] 04/07/2021 12:00:00 AM EDT eCW1 ([facility]) YESENIA RamirezP-BC: [address], [place] [address], Ph. Attender: Leatha Wilson [facility] Medical 03/31/2021 12:00:00 AM EDT [place] ([facility]) Leatha Wilson [facility]: [address], [place] [address], Ph. Attender: Leatha Wilson [facility] Medical 03/31/2021 12:00:00 AM EDT [place] ([facility]) Leatha Wilson [facility]: [address], [place] [address], Ph. Attender: Leatha Wilson [facility] Medical 03/31/2021 12:00:00 AM EDT [place] ([facility]) ([id number]) For Template Turner [address] [place] [address] 03/31/2021 12:00:00 AM EDT eCW1 ([facility]) Leatha Wilson [facility]: [address], [place] [address], Ph. Attender: Leatha Wilson [facility] Medical 03/31/2021 12:00:00 AM EDT [place] ([facility]) Unknown [address] [facility] [address] 03/24/2021 12:00:00 AM EDT eCW1 ([facility]) Outpatient [address] [facility] [address] 03/17/2021 12:00:00 AM EDT eCW1 ([facility]) Unknown [address] [facility] [address] 03/16/2021 12:00:00 AM EDT eCW1 ([facility]) ([id number]) For Template Turner [address] [place] [address] 03/10/2021 12:00:00 AM EDT eCW1 ([facility]) [facility] [address], [place] [address], Ph. Attender: Leatha Wilson [facility] Medical 02/24/2021 12:00:00 AM EDT [place] ([facility]) ISABELL Ramirez: [address], [place] [address], Ph. Attender: Leatha Wilson [facility] Medical 02/24/2021 12:00:00 AM EDT [place] ([facility]) ISABELL Ramirez: [address], [place] [address], Ph. Attender: Leatha Wilson [facility] Medical 02/24/2021 12:00:00 AM EDT [place] ([facility]) ISABELL Ramirez: [address], [place] [address], Ph. Attender: Leatha Wilson [facility] Medical 02/24/2021 12:00:00 AM EDT [place] ([facility]) Outpatient [address] [facility] [address] 02/24/2021 12:00:00 AM EDT eCW1 ([facility]) [facility] [address], [place] [address], Ph. Attender: Leatha Wilson [facility] Medical 02/24/2021 12:00:00 AM EDT [place] ([facility]) ([id number]) For Template Turner [address] [place] [address] 02/17/2021 12:00:00 AM EDT eCW1 ([facility]) [facility]: [address], [place] [address], Ph. Attender: Leatha Wilson [facility] Medical 02/16/2021 12:00:00 AM EDT [place] ([facility]) ISABELL Ramirez: [address], [place] [address], Ph. Attender: Leatha Wilson [facility] Medical 02/16/2021 12:00:00 AM EDT [place] ([facility]) YESENIA RamirezPAustin: [address], [place] [address], Ph. Attender: Leatha Wilson [facility] Medical 02/16/2021 12:00:00 AM EDT [place] ([facility]) ISABELL Ramirez: [address], [place] [address], Ph. Attender: Leatha Wilson [facility] Medical 02/16/2021 12:00:00 AM EDT [place] ([facility]) ISABELL Ramirez: [address], [place] [address], Ph. Attender: Leatha Wilson [facility] Medical 02/16/2021 12:00:00 AM EDT [place] ([facility]) ISABELL Ramirez: [address], [place] [address], Ph. Attender: Leatha Wilson [facility] Medical 02/16/2021 12:00:00 AM EDT [place] ([facility]) Unknown [address] [facility] [address] 02/03/2021 12:00:00 AM EDT eCW1 ([facility]) ([id number]) For Template Turner [address] [place] [address] 01/27/2021 12:00:00 AM EDT eCW1 ([facility]) ([id number]) For Template Turner [address] [place] [phone] 01/19/2021 12:00:00 AM EDT eCW1 ([facility]) ([id number]) For Template Turner [address] [place] [phone] 01/12/2021 12:00:00 AM EDT eCW1 ([facility]) ([id number]) For Template Turner [address] [place] [phone] 01/06/2021 12:00:00 AM EDT eCW1 ([facility]) ([id number]) For Template Turner [address] [place] [phone] 12/29/2020 12:00:00 AM EDT eCW1 ([facility]) ([id number]) For Template Turner [address] [place] [phone] 12/23/2020 12:00:00 AM EDT eCW1 ([facility]) Outpatient Attender: PEGGY ROSE [facility] Office 12/01 02:45:00 PM EDT [facility] ([facility] ([id number]) For Template Turner [address] [place], [place] [phone] 12/09/2020 12:00:00 AM EDT eCW1 ([facility]) ([id number]) For Template Turner [address] [place] [address] 12/02/2020 12:00:00 AM EDT eCW1 ([facility]) ([id number]) For Template Turner [address] [place] [address] 11/23/2020 12:00:00 AM EDT eCW1 ([facility]) ([id number]) For Template Turner [address] [place] [address] 11/16/2020 12:00:00 AM EDT eCW1 ([facility]) Outpatient [address] [facility] [address] 11/08/2020 12:00:00 AM EST eCW1 ([facility]) Outpatient [address] [facility] [address] 11/01/2020 12:00:00 AM EST eCW1 ([facility]) Unknown [address] [facility] [address] 10/26/2020 12:00:00 AM EST eCW1 ([facility]) Unknown [address] [facility] [address] 10/25/2020 12:00:00 AM EST eCW1 ([facility]) Unknown [address] [facility] [address] 10/24/2020 12:00:00 AM EST eCW1 ([facility]) Outpatient [address] [facility] [address] 10/17/2020 12:00:00 AM EST eCW1 ([facility]) Unknown [address] [facility] [address] 10/14/2020 12:00:00 AM EST eCW1 ([facility]) Unknown [address] [facility] [address] 10/11/2020 12:00:00 AM EST eCW1 ([facility]) ([id number]) For Template Turner [facility] [place] [address] 10/07/2020 12:00:00 AM EST eCW1 ([facility]) ([id number]) For Template Turner [facility] [place] [address] 09/30/2020 12:00:00 AM EST eCW1 ([facility]) ([id number]) For Template Turner [address] [place] [address] 09/23/2020 12:00:00 AM EST eCW1 ([facility]) Outpatient [facility] [address] 09/14/2020 12:00:00 AM EST eCW1 ([facility]) Outpatient [facility] [address] 08/24/2020 12:00:00 AM EST eCW1 ([facility]) ([id number]) For Template Turner [facility] [place] [address] 08/17/2020 12:00:00 AM EST eCW1 ([facility]) Unknown [facility] [address] 08/16/2020 12:00:00 AM EST eCW1 ([facility]) ([id number]) For Template Turner [facility] [place] [address] 08/11/2020 12:00:00 AM EST eCW1 ([facility]) Outpatient Attender: Valente CATES [facility] 01:45:00 PM EST MED[facility] ([facility]) Unknown [address] [facility] [address] 08/08/2020 12:00:00 AM EST eCW1 ([facility]) Unknown [address] [facility] [address] 08/05/2020 12:00:00 AM EST eCW1 ([facility]) Unknown [address] [facility] [address] 08/03/2020 12:00:00 AM EST eCW1 ([facility]) ([id number]) For Template Turner [address] [place] [address] 08/03/2020 12:00:00 AM EST eCW1 ([facility]) Unknown [address] [facility] [place] [address] 08/02/2020 12:00:00 AM EST eCW1 ([facility]) Outpatient [address] [facility] [address] 07/25/2020 12:00:00 AM EST eCW1 ([facility]) Outpatient [address] [facility] [address] 07/15/2020 12:00:00 AM EST eCW1 [facility]) (WND STRTCH) Stretcher Required Patients [address] [place] [address] 07/08/2020 12:00:00 AM EST eCW1 ([facility]) Unknown [address] [facility] [address] 07/08/2020 12:00:00 AM EST eCW1 ([facility]) Unknown [address] [facility] [address] 07/04/2020 12:00:00 AM EST eCW1 ([facility]) (WND STRTCH) Stretcher Required Patients [address] [place] [address] 07/01/2020 12:00:00 AM EDT eCW1 ([facility]) Outpatient [address] [facility] [address] 06/28/2020 12:00:00 AM EDT eCW1 ([facility]) Unknown [address] [facility] [address] 06/27/2020 12:00:00 AM EDT eCW1 ([facility]) Outpatient [address] [facility] [address] 06/24/2020 12:00:00 AM EDT eCW1 ([facility]) ([id number]) For Template Turner [address] [place] [address] 06/09/2020 12:00:00 AM EDT eCW1 ([facility]) Immunizations Vaccine Date Status Description Data Source(s) COVID-19, mRNA, LNP-S, PF, 100 mcg/0.5 mL dose 02/02/2021 12 :00:00 AM EDT completed 02/02/2021 [place] ([facility]) COVID-19, mRNA, LNP-S, PF, 100 mcg/0.5 mL dose 02/02/2021 12 :00:00 AM EDT completed 02/02/2021 [place] ([facility]) COVID-19, mRNA, LNP-S, PF, 100 mcg/0.5 mL dose 02/02/2021 12 :00:00 AM EDT completed 02/02/2021 [place] ([facility]) COVID-19, mRNA, LNP-S, PF, 100 mcg/0.5 mL dose 02/02/2021 12 :00:00 AM EDT completed 02/02/2021 [place] ([facility]) COVID-19, mRNA, LNP-S, PF, 100 mcg/0.5 mL dose 02/02/2021 12 :00:00 AM EDT completed 02/02/2021 [place] ([facility]) COVID-19, mRNA, LNP-S, PF, 100 mcg/0.5 mL dose 02/02/2021 12 :00:00 AM EDT completed 02/02/2021 [place] ([facility]) COVID-19 VACCINE Moderna 02/02/2021 12:00:00 AM EDT completed [facility] Complete: YESThis Data wa s Submitted to [facility] Via [facility]. COVID-19, mRNA, LNP-S, PF, 100 mcg/0.5 mL dose 01/05/2021 12 :00:00 AM EDT completed 01/05/2021 [facility]) COVID-19, mRNA, LNP-S, PF, 100 mcg/0.5 mL dose 01/05/2021 12 :00:00 AM EDT completed 01/05/2021 [facility]) COVID-19, mRNA, LNP-S, PF, 100 mcg/0.5 mL dose 01/05/2021 12 :00:00 AM EDT completed 01/05/2021 [place] ([facility]) COVID-19, mRNA, LNP-S, PF, 100 mcg/0.5 mL dose 01/05/2021 12 :00:00 AM EDT completed 01/05/2021 [place] ([facility]) COVID-19, mRNA, LNP-S, PF, 100 mcg/0.5 mL dose 01/05/2021 12 :00:00 AM EDT completed 01/05/2021 [place] ([facility]) COVID-19, mRNA, LNP-S, PF, 100 mcg/0.5 mL dose 01/05/2021 12 :00:00 AM EDT completed 01/05/2021 [place] ([facility]) COVID-19 VACCINE Moderna 01/05/2021 12:00:00 AM EDT completed [facility] Vaccine Series Complete: NOThis Data was Submitted to [facility] Via [employer]. influenza, recombinant, quadrIvalent,injectable, prese rvative free 06/09/2020 01:10:00 PM EDT completed eCW1 ([facility]) influenza, recombinant, quadrIvalent,injectable, prese rvative free 06/09/2020 01:10:00 PM EDT completed eCW1 ([facility]) influenza, recombinant, quadrIvalent,injectable, prese rvative free 06/09/2020 01:10:00 PM EDT completed eCW1 ([facility]) influenza, recombinant, quadrIvalent,injectable, prese rvative free 06/09/2020 01:10:00 PM EDT completed eCW1 ([facility]) influenza, recombinant, quadrIvalent,injectable, prese rvative free 06/09/2020 01:10:00 PM EDT completed eCW1 ([facility]) influenza, recombinant, quadrIvalent,injectable, prese rvative free 06/09/2020 01:10:00 PM EDT completed eCW1 ([facility]) influenza, recombinant, quadrIvalent,injectable, prese rvative free 06/09/2020 01:10:00 PM EDT completed eCW1 ([facility]) influenza, recombinant, quadrIvalent,injectable, prese rvative free 06/09/2020 01:10:00 PM EDT completed eCW1 ([facility]) influenza, recombinant, quadrIvalent,injectable, prese rvative free 06/09/2020 01:10:00 PM EDT completed eCW1 ([facility]) influenza, recombinant, quadrIvalent,injectable, prese rvative free 06/09/2020 01:10:00 PM EDT completed eCW1 ([facility]) influenza, recombinant, quadrIvalent,injectable, prese rvative free 06/09/2020 01:10:00 PM EDT completed eCW1 ([facility]) influenza, recombinant, quadrIvalent,injectable, prese rvative free 06/09/2020 01:10:00 PM EDT completed eCW1 ([facility]) influenza, recombinant, quadrIvalent,injectable, prese rvative free 06/09/2020 01:10:00 PM EDT completed eCW1 ([facility]) influenza, recombinant, quadrIvalent,injectable, prese rvative free 06/09/2020 01:10:00 PM EDT completed eCW1 ([facility]) influenza, recombinant, quadrIvalent,injectable, prese rvative free 06/09/2020 01:10:00 PM EDT completed eCW1 ([facility]) influenza, recombinant, quadrIvalent,injectable, prese rvative free 06/09/2020 01:10:00 PM EDT completed eCW1 ([facility]) influenza, recombinant, quadrIvalent,injectable, prese rvative free 06/09/2020 01:10:00 PM EDT completed eCW1 ([facility]) influenza, recombinant, quadrIvalent,injectable, prese rvative free 06/09/2020 01:10:00 PM EDT completed eCW1 ([facility]) influenza, recombinant, quadrIvalent,injectable, prese rvative free 06/09/2020 01:10:00 PM EDT completed eCW1 ([facility]) influenza, recombinant, quadrIvalent,injectable, prese rvative free 06/09/2020 01:10:00 PM EDT completed eCW1 ([facility]) influenza, recombinant, quadrIvalent,injectable, prese rvative free 06/09/2020 01:10:00 PM EDT completed eCW1 ([facility]) influenza, recombinant, quadrIvalent,injectable, prese rvative free 06/09/2020 01:10:00 PM EDT completed eCW1 ([facility]) influenza, recombinant, quadrIvalent,injectable, prese rvative free 06/09/2020 01:10:00 PM EDT completed eCW1 (Formerly [facility]) influenza, recombinant, quadrIvalent,injectable, prese rvative free 06/09/2020 01:10:00 PM EDT completed eCW1 (Formerly [facility]) influenza, recombinant, quadrIvalent,injectable, prese rvative free 06/09/2020 01:10:00 PM EDT completed eCW1 (Formerly [facility]) influenza, recombinant, quadrIvalent,injectable, prese rvative free 06/09/2020 01:10:00 PM EDT completed eCW1 (Formerly [facility]) influenza, recombinant, quadrIvalent,injectable, prese rvative free 06/09/2020 01:10:00 PM EDT completed eCW1 (Formerly [facility]) influenza, recombinant, quadrIvalent,injectable, prese rvative free 06/09/2020 01:10:00 PM EDT completed eCW1 (Formerly [facility]) influenza, recombinant, quadrIvalent,injectable, prese rvative free 06/09/2020 01:10:00 PM EDT completed eCW1 (Formerly [facility]) influenza, recombinant, quadrIvalent,injectable, prese rvative free 06/09/2020 01:10:00 PM EDT completed eCW1 (Formerly [facility]) influenza, recombinant, quadrIvalent,injectable, prese rvative free 06/09/2020 01:10:00 PM EDT completed eCW1 (Formerly [facility]) influenza, recombinant, quadrIvalent,injectable, prese rvative free 06/09/2020 01:10:00 PM EDT completed eCW1 (Formerly [facility]) influenza, recombinant, quadrIvalent,injectable, prese rvative free 06/09/2020 01:10:00 PM EDT completed eCW1 (Formerly [facility]) influenza, recombinant, quadrIvalent,injectable, prese rvative free 06/09/2020 01:10:00 PM EDT completed eCW1 (Formerly [facility]) influenza, recombinant, quadrIvalent,injectable, prese rvative free 06/09/2020 01:10:00 PM EDT completed eCW1 (Formerly [facility]) influenza, recombinant, quadrIvalent,injectable, prese rvative free 06/09/2020 01:10:00 PM EDT completed eCW1 (Formerly [facility]) influenza, recombinant, quadrIvalent,injectable, prese rvative free 06/09/2020 01:10:00 PM EDT completed eCW1 ([facility]) influenza, recombinant, quadrIvalent,injectable, prese rvative free 06/09/2020 01:10:00 PM EDT completed eCW1 (Formerly [facility]) influenza, recombinant, quadrIvalent,injectable, prese rvative free 06/09/2020 01:10:00 PM EDT completed eCW1 (Formerly [facility]) influenza, recombinant, quadrIvalent,injectable, prese rvative free 06/09/2020 01:10:00 PM EDT completed eCW1 (Formerly [facility]) influenza, recombinant, quadrIvalent,injectable, prese rvative free 06/09/2020 01:10:00 PM EDT completed eCW1 ([facility]) influenza, recombinant, quadrIvalent,injectable, prese rvative free 06/09/2020 01:10:00 PM EDT completed eCW1 ([facility]) influenza, recombinant, quadrIvalent,injectable, prese rvative free 06/09/2020 01:10:00 PM EDT completed eCW1 ([facility]) influenza, recombinant, quadrIvalent,injectable, prese rvative free 06/09/2020 01:10:00 PM EDT completed eCW1 ([facility]) influenza, recombinant, quadrIvalent,injectable, prese rvative free 06/09/2020 01:10:00 PM EDT completed eCW1 ([facility]) influenza, recombinant, quadrIvalent,injectable, prese rvative free 06/09/2020 01:10:00 PM EDT completed eCW1 ([facility]) influenza, recombinant, quadrIvalent,injectable, prese rvative free 06/09/2020 01:10:00 PM EDT completed eCW1 ([facility]) influenza, recombinant, quadrIvalent,injectable, prese rvative free 06/09/2020 01:10:00 PM EDT completed eCW1 ([facility]) influenza, recombinant, quadrIvalent,injectable, prese rvative free 06/09/2020 01:10:00 PM EDT completed eCW1 ([facility]) influenza, recombinant, quadrIvalent,injectable, prese rvative free 06/09/2020 01:10:00 PM EDT completed eCW1 ([facility]) influenza, recombinant, quadrIvalent,injectable, prese rvative free 06/09/2020 01:10:00 PM EDT completed eCW1 ([facility]) influenza, recombinant, quadrIvalent,injectable, prese rvative free 06/09/2020 01:10:00 PM EDT completed eCW1 ([facility]) influenza, recombinant, quadrIvalent,injectable, prese rvative free 06/09/2020 01:10:00 PM EDT completed eCW1 ([facility]) influenza, recombinant, quadrIvalent,injectable, prese rvative free 06/09/2020 01:10:00 PM EDT completed eCW1 ([facility]) influenza, recombinant, quadrIvalent,injectable, prese rvative free 06/09/2020 01:10:00 PM EDT completed eCW1 ([facility]) influenza, recombinant, quadrIvalent,injectable, prese rvative free 06/09/2020 01:10:00 PM EDT completed eCW1 ([facility]) influenza, recombinant, quadrIvalent,injectable, prese rvative free 06/09/2020 01:10:00 PM EDT completed eCW1 ([facility]) influenza, recombinant, quadrIvalent,injectable, prese rvative free 06/09/2020 01:10:00 PM EDT completed eCW1 ([facility]) influenza, recombinant, quadrIvalent,injectable, prese rvative free 06/09/2020 01:10:00 PM EDT completed eCW1 ([facility]) influenza, recombinant, quadrIvalent,injectable, prese rvative free 06/09/2020 01:10:00 PM EDT completed eCW1 ([facility]) influenza, recombinant, quadrIvalent,injectable, prese rvative free 06/09/2020 01:10:00 PM EDT completed eCW1 ([facility]) influenza, recombinant, quadrIvalent,injectable, prese rvative free 06/09/2020 01:10:00 PM EDT completed eCW1 ([facility]) influenza, recombinant, quadrIvalent,injectable, prese rvative free 06/09/2020 01:10:00 PM EDT completed eCW1 ([facility]) influenza, recombinant, quadrIvalent,injectable, prese rvative free 06/09/2020 01:10:00 PM EDT completed eCW1 ([facility]) influenza, recombinant, quadrIvalent,injectable, prese rvative free 06/09/2020 01:10:00 PM EDT completed eCW1 ([facility]) influenza, recombinant, quadrIvalent,injectable, prese rvative free 06/09/2020 01:10:00 PM EDT completed eCW1 ([facility]) influenza, recombinant, quadrIvalent,injectable, prese rvative free 06/09/2020 01:10:00 PM EDT completed eCW1 ([facility]) influenza, recombinant, quadrIvalent,injectable, prese rvative free 06/09/2020 01:10:00 PM EDT completed eCW1 ([facility]) influenza, recombinant, quadrIvalent,injectable, prese rvative free 06/09/2020 01:10:00 PM EDT completed eCW1 ([facility]) influenza, recombinant, quadrIvalent,injectable, prese rvative free 06/09/2020 01:10:00 PM EDT completed eCW1 ([facility]) influenza, recombinant, quadrIvalent,injectable, prese rvative free 06/09/2020 01:10:00 PM EDT completed eCW1 (Former[facility]) Medications Medication Brand Name Start Date Product [...] / nitrofurantoin, monohydrate 75 MG Oral Capsule [place] ([facility]) Mupirocin 0.02 MG/MG Topical Ointment mu pirocin 2 % topical ointment APPLY TO RIGHT ON THE LEG ONCE DAILY mupirocin 2 % topical ointment APPLY TO RIGHT ON THE LEG ONCE DAILY completed mupiroc in 0.02 MG/MG Topical Ointment [place] ([facility]) Cephalexin 500 MG Oral Capsule cephalexi n 500 mg capsule TAKE ONE CAPSULE BY MOUTH FOUR TIMES DAILY cephalexin 500 mg capsule TAKE ONE CAPSU LE BY MOUTH FOUR TIMES DAILY completed cephalexin 500 MG Oral Capsule [facility]) Mupirocin 0.02 MG/MG Topical Ointment mu pirocin 2 % topical ointment APPLY TO RIGHT ON THE LEG ONCE DAILY mupirocin 2 % topical ointment APPLY TO RIGHT ON THE LEG ONCE DAILY completed mupiroc in 0.02 MG/MG Topical Ointment [place] ([facility]) Furosemide 20 MG Oral Tablet furosemide 20 mg tablet TAKE ONE TABLET BY MOUTH ONCE DAILY furosemide 20 mg tablet TAKE ONE TABLET BY MOUTH ONCE DAILY completed furosemide 20 MG Oral Tab let [place] ([facility]) Mupirocin 0.02 MG/MG Topical Ointment mu pirocin 2 % topical ointment APPLY TO RIGHT ON THE LEG ONCE DAILY mupirocin 2 % topical ointment APPLY TO RIGHT ON THE LEG ONCE DAILY completed mupiroc in 0.02 MG/MG Topical Ointment [place] ([facility]) Furosemide 20 MG Oral Tablet furosemide 20 mg tablet TAKE ONE TABLET BY MOUTH ONCE DAILY furosemide 20 mg tablet TAKE ONE TABLET BY MOUTH ONCE DAILY completed furosemide 20 MG Oral Tab let [place] ([facility]) Ibuprofen 600 MG Oral Tablet ibuprofen 6 00 mg tablet TAKE ONE TABLET BY MOUTH THREE TIMES DAILY FOR 10 DAYS ibuprofen 600 mg tablet TAKE ONE TABLET BY MOUTH THREE TIMES DAILY FOR 10 DAYS complete d ibuprofen 600 MG Oral Tablet [place] ([facility]) Furosemide 20 MG Oral Tablet furosemide 20 mg tablet TAKE ONE TABLET BY MOUTH ONCE DAILY furosemide 20 mg tablet TAKE ONE TABLET BY MOUTH ONCE DAILY completed furosemide 20 MG Oral Tab let [place] ([facility]) Ibuprofen 600 MG Oral Tablet ibuprofen 6 00 mg tablet TAKE ONE TABLET BY MOUTH THREE TIMES DAILY FOR 10 DAYS ibuprofen 600 mg tablet TAKE ONE TABLET BY MOUTH THREE TIMES DAILY FOR 10 DAYS complete d ibuprofen 600 MG Oral Tablet [place] ([facility]) Fluconazole 150 MG Oral Tablet fluconazo le 150 mg tablet TAKE ONE TABLET BY MOUTH ONCE A WEEK fluconazole 150 mg tablet TAKE ONE TABLE T BY MOUTH ONCE A WEEK completed fluconazole 150 MG Oral Tablet [place] ([facility]) Fluconazole 150 MG Oral Tablet fluconazo le 150 mg tablet TAKE ONE TABLET BY MOUTH ONCE A WEEK fluconazole 150 mg tablet TAKE ONE TABLE T BY MOUTH ONCE A WEEK completed fluconazole 150 MG Oral Tablet [place] ([facility]) Cephalexin 500 MG Oral Capsule cephalexi n 500 mg capsule TAKE ONE CAPSULE BY MOUTH FOUR TIMES DAILY cephalexin 500 mg capsule TAKE ONE CAPSU LE BY MOUTH FOUR TIMES DAILY completed cephalexin 500 MG Oral Capsule [place] ([facility]) Cephalexin 500 MG Oral Capsule cephalexi n 500 mg capsule TAKE ONE CAPSULE BY MOUTH FOUR TIMES DAILY cephalexin 500 mg capsule TAKE ONE CAPSU LE BY MOUTH FOUR TIMES DAILY completed cephalexin 500 MG Oral Capsule [place] ([facility]) Cephalexin 500 MG Oral Capsule cephalexi n 500 mg capsule TAKE ONE CAPSULE BY MOUTH FOUR TIMES DAILY cephalexin 500 mg capsule TAKE ONE CAPSU LE BY MOUTH FOUR TIMES DAILY completed cephalexin 500 MG Oral Capsule [place] ([facility]) NITROFURANTOIN, MACROCRYSTALS 25 MG / Ni trofurantoin, Monohydrate 75 MG Oral Capsule nitrofurantoin monohydrate/macrocrystals 100 mg capsule TAKE ONE CAPSULE BY MOUTH TWICE DAILY nitrofurantoin monohydrate/macrocrystals 100 mg capsule TAKE ONE CAPSULE BY MOUTH TWICE DAILY completed nitrofurantoin, macrocrystals 25 MG / nitrofurantoin, monohydrate 75 MG Oral Capsule [place] ([facility]) NITROFURANTOIN, MACROCRYSTALS 25 MG / Ni trofurantoin, Monohydrate 75 MG Oral Capsule nitrofurantoin monohydrate/macrocrystals 100 mg capsule TAKE ONE CAPSULE BY MOUTH TWICE DAILY nitrofurantoin monohydrate/macrocrystals 100 mg capsule TAKE ONE CAPSULE BY MOUTH TWICE DAILY completed nitrofurantoin, macrocrystals 25 MG / nitrofurantoin, monohydrate 75 MG Oral Capsule [place] ([facility]) Mupirocin 0.02 MG/MG Topical Ointment mu pirocin 2 % topical ointment APPLY TO RIGHT ON THE LEG ONCE DAILY mupirocin 2 % topical ointment APPLY TO RIGHT ON THE LEG ONCE DAILY completed mupiroc in 0.02 MG/MG Topical Ointment [place] ([facility]) Ibuprofen 600 MG Oral Tablet ibuprofen 6 00 mg tablet TAKE ONE TABLET BY MOUTH THREE TIMES DAILY FOR 10 DAYS ibuprofen 600 mg tablet TAKE ONE TABLET BY MOUTH THREE TIMES DAILY FOR 10 DAYS complete d ibuprofen 600 MG Oral Tablet [place] ([facility]) NITROFURANTOIN, MACROCRYSTALS 25 MG / Ni trofurantoin, Monohydrate 75 MG Oral Capsule nitrofurantoin monohydrate/macrocrystals 100 mg capsule TAKE ONE CAPSULE BY MOUTH TWICE DAILY nitrofurantoin monohydrate/macrocrystals 100 mg capsule TAKE ONE CAPSULE BY MOUTH TWICE DAILY completed nitrofurantoin, macrocrystals 25 MG / nitrofurantoin, monohydrate 75 MG Oral Capsule [place] ([facility]) Fluconazole 150 MG Oral Tablet fluconazo le 150 mg tablet TAKE ONE TABLET BY MOUTH ONCE A WEEK fluconazole 150 mg tablet TAKE ONE TABLE T BY MOUTH ONCE A WEEK completed fluconazole 150 MG Oral Tablet [place] ([facility]) Ibuprofen 600 MG Oral Tablet ibuprofen 6 00 mg tablet TAKE ONE TABLET BY MOUTH THREE TIMES DAILY FOR 10 DAYS ibuprofen 600 mg tablet TAKE ONE TABLET BY MOUTH THREE TIMES DAILY FOR 10 DAYS complete [facility]con[facility] MG Oral Tablet fluconazo le 150 mg tablet TAKE ONE TABLET BY MOUTH ONCE A WEEK fluconazole 150 mg tablet TAKE ONE TABLE T BY MOUTH ONCE A WEEK completed fluconazole 150 MG Oral Tablet [place] ([facility]) Fluconazole 150 MG Oral Tablet fluconazo le 150 mg tablet TAKE ONE TABLET BY MOUTH ONCE A WEEK fluconazole 150 mg tablet TAKE ONE TABLE T BY MOUTH ONCE A WEEK completed fluconazole 150 MG Oral Tablet [facility]) Mupirocin 0.02 MG/MG Topical Ointment mu pirocin 2 % topical ointment APPLY TO RIGHT ON THE LEG ONCE DAILY mupirocin 2 % topical ointment APPLY TO RIGHT ON THE LEG ONCE DAILY completed mupiroc in 0.02 MG/MG Topical Ointment [place] ([facility]) Furosemide 20 MG Oral Tablet furosemide 20 mg tablet TAKE ONE TABLET BY MOUTH ONCE DAILY furosemide 20 mg tablet TAKE ONE TABLET BY MOUTH ONCE DAILY completed furosemide 20 MG Oral Tab let [facility]) Fluconazole 150 MG Oral Tablet flu[place]azo le 150 mg tablet TAKE ONE TABLET BY MOUTH ONCE A WEEK fluconazole 150 mg tablet TAKE ONE TABLE T BY MOUTH ONCE A WEEK completed fluconazole 150 MG Oral Tablet [place] ([facility]) Cephalexin 500 MG Oral Capsule cephalexi n 500 mg capsule TAKE ONE CAPSULE BY MOUTH FOUR TIMES DAILY cephalexin 500 mg capsule TAKE ONE CAPSU LE BY MOUTH FOUR TIMES DAILY completed cephalexin 500 MG Oral Capsule [place] ([facility]) NITROFURANTOIN, MACROCRYSTALS 25 MG / Ni trofurantoin, Monohydrate 75 MG Oral Capsule nitrofurantoin monohydrate/macrocrystals 100 mg capsule TAKE ONE CAPSULE BY MOUTH TWICE DAILY nitrofurantoin monohydrate/macrocrystals 100 mg capsule TAKE ONE CAPSULE BY MOUTH TWICE DAILY completed nitrofurantoin, macrocrystals 25 MG / nitrofurantoin, monohydrate 75 MG Oral Capsule [place] ([facility]) Furosemide 20 MG Oral Tablet furosemide 20 mg tablet TAKE ONE TABLET BY MOUTH ONCE DAILY furosemide 20 mg tablet TAKE ONE TABLET BY MOUTH ONCE DAILY completed furosemide 20 MG Oral Tab let [place] ([facility]) Mupirocin 0.02 MG/MG Topical Ointment mu pirocin 2 % topical ointment APPLY TO RIGHT ON THE LEG ONCE DAILY mupirocin 2 % topical ointment APPLY TO RIGHT ON THE LEG ONCE DAILY completed mupiroc in 0.02 MG/MG Topical Ointment [place] ([facility]) Cephalexin 500 MG Oral Capsule cephalexi n 500 mg capsule TAKE ONE CAPSULE BY MOUTH FOUR TIMES DAILY cephalexin 500 mg capsule TAKE ONE CAPSU LE BY MOUTH FOUR TIMES DAILY completed cephalexin 500 MG Oral Capsule [place] ([facility]) NITROFURANTOIN, MACROCRYSTALS 25 MG / Ni trofurantoin, Monohydrate 75 MG Oral Capsule nitrofurantoin monohydrate/macrocrystals 100 mg capsule TAKE ONE CAPSULE BY MOUTH TWICE DAILY nitrofurantoin monohydrate/macrocrystals 100 mg capsule TAKE ONE CAPSULE BY MOUTH TWICE DAILY completed nitrofurantoin, macrocrystals 25 MG / nitrofurantoin, monohydrate 75 MG Oral Capsule [place] ([facility]) Ibuprofen 600 MG Oral Tablet ibuprofen 6 00 mg tablet TAKE ONE TABLET BY MOUTH THREE TIMES DAILY FOR 10 DAYS ibuprofen 600 mg tablet TAKE ONE TABLET BY MOUTH THREE TIMES DAILY FOR 10 DAYS complete d ibuprofen 600 MG Oral Tablet [place] ([facility]) Furosemide 20 MG Oral Tablet furosemide 20 mg tablet TAKE ONE TABLET BY MOUTH ONCE DAILY furosemide 20 mg tablet TAKE ONE TABLET BY MOUTH ONCE DAILY completed furosemide 20 MG Oral Tab let [place] ([facility]) Ibuprofen 600 MG Oral Tablet ibuprofen 6 00 mg tablet TAKE ONE TABLET BY MOUTH THREE TIMES DAILY FOR 10 DAYS ibuprofen 600 mg tablet TAKE ONE TABLET BY MOUTH THREE TIMES DAILY FOR 10 DAYS complete d ibuprofen 600 MG Oral Tablet [place] ([facility]) Insurance Providers Payer name Policy type / Coverage type Policy ID Covered republican ID Covered republican's relationship to turner Policy [place] Plan Information [employer] [place] 332/834 [id number] SP [id number] [employer] [facility] 303/803 [id number] SP [id number] [employer] [facility] 303/803 [id number] SP [id number] [place] 332/834 [id number] SP [id number] [place] Medigap Part B [id number] Self MEDICARE [id number] SP [id number] A MEDICARE [id number] SP [id number] A [id number] A MEDICARE COMPLETE [id number] SP [id number] MEDICARE COMPLETE [id number] SP [id number] MEDICAID [id number] SP [id number] MEDICARE COMPLETE [id number] SP [id number] [facility] MEDICARE [id number] [facility] MEDICARE [id number] Beti [id number] ANS-Medicare Part B [id number] MEDICAID [id number] SP [id number] ANS-Medicare Part B [id number] [facility]-Medicaid [id number] ANSI-Commercial [id number] ANSI-Medicare Part B [id number] ANSI-Medicare Part B [id number] ANSI-Commercial [id number] ANSI-Medicare Part B [id number] ANSI-Medicaid [id number] ANSI-Medicaid [id number] ANSI-Commercial [id number] ANSI-Medicare Part B [id number] ANSI-Medicare Part B [id number] ANSI-Medicare Part B [id number] ANSI-Medicare Part B [id number] ANSI-Medicaid [id number] ANSI-Commercial [id number] ANSI-Medicare Part B [id number] [facility]-Medicaid [id number] ANSI-Commercial [id number] ANS-Medicare Part B [id number] [facility]-Medicaid [id number] ANSI-Medicare Part B [id number] ANSI-Medicare Part B [id number] ANSI-Commercial [id number] ANSI-Medicaid [id number] ANSI-Medicare Part B [id number] ANSI-Commercial [id number] ANSI-Medicare Part B [id number] ANSI-Medicare Part B [id number] ANSI-Commercial [id number] ANSI-Medicare Part B [id number] ANSI-Medicaid [id number] ANSI-Medicaid [id number] ANSI-Medicare Part B [id number] ANSI-Medicare Part B [id number] ANSI-Commercial [id number] ANSI-Medicaid [id number] ANSI-Medicare Part B [id number] ANSI-Medicare Part B [id number] ANSI-Commercial [id number] ANSI-Medicare Part B [id number] ANSI-Medicaid [id number] ANSI-Commercial [id number] ANSI-Medicare Part B [id number] ANSI-Commercial [id number] ANSI-Medicare Part B [id number] ANSI-Medicare Part B [id number] ANSI-Medicaid [id number] ANSI-Commercial [id number] ANSI-Medicare Part B [id number] ANSI-Medicare Part B [id number] ANSI-Medicaid [id number] Medicaid [facility] Part B [id number] Self [id number] [facility]) Commercial [id number] Self [id number] ANSI-Medicaid [id number] ANSI-Commercial [id number]-[id number] ANSI-Medicare Part B [id number] ANSI-Medicare Part B [id number] ANSI-Medicare Part B [id number] ANSI-Commercial [id number]-of5s-[id number]-wyk3-[id number] [id number]-jc2r-3vfc-zpk8-[id number] ANSI-Medicare Part B [id number] ANSI-Medicaid [id number] ANSI-Medicare Part B [id number] ANSI-Medicaid [id number] ANSI-Medicare Part B [id number] ANSI-Commercial [id number]-[id number]-[id number]-[id number]-[id number] [facility] [id number] SP [id number] MEDICARE [id number] SP [id number] A MEDICARE [id number] SP [id number] A [employer] [place] [facility] 303/803 [id number] SP [id number] [employer]BS [place] [facility] 303/803 [id number] SP [id number] [facility] [id number] SP [id number] ANSI-Medicare Part B [id number] ANSI-Commercial [id number]-nlr3-6vf2-w39a-[id number] tgdsw5h5-tqi3-0kq4-c56g-[id number] ANSI-Medicare Part B [id number]-gdbu-[id number]-[id number] ANSI-Commercial [id number]-l490-9os1-31d3-4pbiaboq8kf6 f71j11a4-y458-9di4-15p8-2fqadibr6gq7 ANSI-Medicare Part B [id number] ANSI-Medicare Part B [id number] ANSI-Medicare Part B [id number] ANSI-Commercial vac619j5-7899-5w89-9l1v-029j5l6wi60m ikq885t6-0391-8p94-2c4a-299x8r3zb25y ANSI-Medicare Part B [id number] [facility] Commercial [id number] Self [id number] ANSI-Medicare Part B [id number] ANSI-Commercial [id number]-g04kp86trz30 [id number]-l26ve93kfc81 ANSI-Medicare Part B [id number]-[id number] ANSI-Medicare Part B [id number] ANSI-Commercial n641sh2j-549r-8r25-m595-[id number]-042y-1b37-s148-[id number] ANSI-Medicare Part B [id number] ANSI-Medicare Part B [id number]-[id number] ANSI-Commercial [id number]-[id number]-t991-42381fqhzt07 fto2208q-0278-7400-v992-52380kwnke48 ANSI-Medicare Part B [id number]-[id number] ANSI-Medicare Part B [id number]-184r-84cf8lzih8wu ANSI-Commercial sjsh6603-ap09-890t-5g81-88fty99u47y3 [id number]-lo84-355a-4q41-21ehl44a33k4 ANSI-Medicare Part B [id number]-[id number] SELF PAY [facility] Commercial [id number] Self [id number] ANSI-Medicare Part B [id number]-[id number] ANSI-Commercial [id number]-[id number] [id number]-5y1946gu6h14 ANSI-Medicare Part B [id number]-[id number] ANSI-Commercial [id number]-r49t-487y-2d5a-[id number] wsl23504-h64d-185f-2u8s-3z7a2x1127p9 ANSI-Medicare Part B [id number]-q43u-3gxu-[id number] ANSI-Medicare Part B [id number]-230j-yr40-co68m04p59o2 ANSI-Medicare Part B [id number] ANSI-Commercial [id number]-[id number]-y5h2-44qs-i627-[id number] ANSI-Medicare Part B [id number]-wdl6-9084-[id number] [facility] Commercial [id number] Self [id number] ANSI-Commercial [id number]-[id number]-[id number] ANSI-Medicare Part B [id number] [place] [id number] SP [id number] A [facility] Commercial [id number] Self [id number] ANSI-Medicare Part B [id number] ANSI-Commercial [id number]-[id number]-[id number]-i751-19lr-[id number] ANSI-Medicare Part B [id number]-fe6x-[id number] [place]BS [place] P[place] 302/[id number] [facility] [id number] SP [id number] [facility] Medigap Part B [id number] Self [id number] [facility] Medicare Commercial [id number] Self [id number] [facility] [employer] Commercial [id number] Self [id number] [facility] [facility] Medigap Part B [id number] Self [id number] [facility] Medicare Commercial [id number] Self [id number] [facility] [facility] Medigap Part B [id number] Self [id number] [facility] Medicare Commercial [id number] Self [id number] [facility] [id number] SP [id number] Medicare Dme Medigap Part B [id number] Self Medicare Medicare Primary [id number] Self ANSI-Medicare Part B [id number] MEDICARE COMPLETE [id number] SP [id number] MEDICARE COMPLETE [id number] SP [id number] MEDICARE [id number] SP [id number] MEDICARE COMPLETE [id number] SP [id number] MEDICARE COMPLETE [id number] SP [id number] [place] [id number] SP [id number] MEDICARE COMPLETE [id number] SP [id number] ANSI-Medicare Part B [id number] ANSI-Medicaid [id number] ANSI-Medicare Part B [id number] ANSI-Commercial [id number] ANSI-Commercial [id number] ANSI-Medicare Part B [id number] ANSI-Medicaid [id number] Problems, Conditions, and Diagnoses Code Display Name Description Problem Type Effective Dates Data Source(s) 259883994 Pain in left lower limb Pain in Left Lower Limb Proble m 04/24/2021 12:00:00 AM EDT [place] ([facility]) [id number] Pancytopenia Pancytopenia Problem 04/24/2021 12:00:00 A M EDT [place] ([facility]) 923263229 Pain in left lower limb Pain in Left Lower Limb Proble m 04/24/2021 12:00:00 AM EDT [place] ([facility]) 179526294 Pancytopenia Pancytopenia Problem 04/24/2021 12:00:00 A M EDT [place] ([facility]) 841230955 Pain in left lower limb Pain in Left Lower Limb Proble m 04/24/2021 12:00:00 AM EDT [place] ([facility]) 550512011 Pancytopenia Pancytopenia Problem 04/24/2021 12:00:00 A M EDT [place] ([facility]) 04297086 Chronic ulcer of lower extremity Chronic Ulcer o f Lower Extremity Problem 04/20/2021 12:00:00 AM EDT [place] ([facility]) 88897234 Atrial fibrillation Atrial Fibrillation Problem 0 04/20/2021 12:00:00 AM EDT [place] ([facility]) 46313199 Chronic ulcer of lower extremity Chronic Ulcer o f Lower Extremity Problem 04/20/2021 12:00:00 AM EDT [place] ([facility]) 12324360 Atrial fibrillation Atrial Fibrillation Problem 0 04/20/2021 12:00:00 AM EDT [place] ([facility]) 05567724 Chronic ulcer of lower extremity Chronic Ulcer o f Lower Extremity Problem 04/20/2021 12:00:00 AM EDT [place] ([facility]) 71318315 Atrial fibrillation Atrial Fibrillation Problem 0 04/20/2021 12:00:00 AM EDT [place] ([facility]) 27878631 Nicotine dependence Nicotine Dependence Problem 0 02/19/2021 12:00:00 AM EDT [place] ([facility]) 865515751 Type II diabetes mellitus uncontrolled T ype II Diabetes Mellitus Uncontrolled Problem 02/19/2021 12:00:00 AM EDT [place] ([facility]) 44774009 Nicotine dependence Nicotine Dependence Problem 0 02/19/2021 12:00:00 AM EDT [place] ([facility]) 076940141 Type II diabetes mellitus uncontrolled T ype II Diabetes Mellitus Uncontrolled Problem 02/19/2021 12:00:00 AM EDT [place] ([facility]) 19762992 Nicotine dependence Nicotine Dependence Problem 0 02/19/2021 12:00:00 AM EDT [place] ([facility]) 095497371 Type II diabetes mellitus uncontrolled T ype II Diabetes Mellitus Uncontrolled Problem 02/19/2021 12:00:00 AM EDT [place] ([facility]) 47098016 Nicotine dependence Nicotine Dependence Problem 0 02/19/2021 12:00:00 AM EDT [place] ([facility]) 077268376 Type II diabetes mellitus uncontrolled T ype II Diabetes Mellitus Uncontrolled Problem 02/19/2021 12:00:00 AM EDT [place] ([facility]) 96935850 Nicotine dependence Nicotine Dependence Problem 0 02/19/2021 12:00:00 AM EDT [place] ([facility]) 165689646 Type II diabetes mellitus uncontrolled T ype II Diabetes Mellitus Uncontrolled Problem 02/19/2021 12:00:00 AM EDT [place] ([facility]) 11785870 Nicotine dependence Nicotine Dependence Problem 0 02/19/2021 12:00:00 AM EDT [place] ([facility]) 018850097 Type II diabetes mellitus uncontrolled T ype II Diabetes Mellitus Uncontrolled Problem 02/19/2021 12:00:00 AM EDT [place] ([facility]) B35.1 Onychomycosis Onychomycosis Problem 12/28/2020 12:00:00 AM EDT [place] ([facility] 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 [facility] 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 mellitus Problem 12/28/2020 12:00:00 AM EDT [facility] ([facility] M79.676 Pain in limb Pain in limb Problem 12/28/2020 12:00:00 A M EDT [facility] ([facility] Surgeries/Procedures Procedure Description Date Indications Data Source(s) Medication: 4% Lidocaine topical cream (Anecream) 30 gm 07/26/2021 12:00:00 AM EST eCW1 ([facility]) Medication: 4% Lidocaine topical cream (Anecream) 30 gm 07/13/2021 12:00:00 AM EST eCW1 ([facility]) DEBRIDEMENT NAIL ANY METHOD 07/04/2021 12:00:00 AM EDT [facility] ([facility] Medication: 4% Lidocaine topical cream (Anecream) 30 gm 06/30/2021 12:00:00 AM EDT eCW1 ([facility]) Medication: 4% Lidocaine topical cream (Anecream) 30 gm 06/23/2021 12:00:00 AM EDT eCW1 ([facility]) Medication: 4% Lidocaine topical cream (Anecream) 30 gm 06/16/2021 12:00:00 AM EDT eCW1 ([facility]) Medication: 4% Lidocaine topical cream (Anecream) 30 gm 06/09/2021 12:00:00 AM EDT eCW1 ([facility]) Medication: 4% Lidocaine topical cream (Anecream) 30 gm 05/19/2021 12:00:00 AM EDT eCW1 ([facility]) Medication: 4% Lidocaine topical cream (Anecream) 30 gm 05/12/2021 12:00:00 AM EDT eCW1 ([facility]) DEBRIDEMENT NAIL ANY METHOD 04/25/2021 12:00:00 AM EDT [facility] ([facility] Medication: 4% Lidocaine topical cream (Anecream) 30 gm 04/21/2021 12:00:00 AM EDT eCW1 ([facility]) Medication: 4% Lidocaine topical cream (Anecream) 30 gm 04/07/2021 12:00:00 AM EDT eCW1 ([facility]) XR, ribs, unilateral, 2 view 03/31/2021 12:00:00 AM ED T [place] ([facility]) XR, ribs, unilateral, 2 view 03/31/2021 12:00:00 AM ED T [place] ([facility]) XR, ribs, unilateral, 2 view 03/31/2021 12:00:00 AM ED T [place] ([facility]) Medication: 4% Lidocaine topical cream (Anecream) 30 gm 03/31/2021 12:00:00 AM EDT eCW1 ([facility]) XR, ribs, unilateral, 2 view 03/31/2021 12:00:00 AM ED T [place] ([facility]) Medication: 4% Lidocaine topical cream (Anecream) 30 gm 03/17/2021 12:00:00 AM EDT eCW1 ([facility]) Medication: 4% Lidocaine topical cream (Anecream) 30 gm 03/10/2021 12:00:00 AM EDT eCW1 ([facility]) Medication: 2% Lidocaine intradermal 02/24/2021 12:00: 00 AM EDT eCW1 ([facility]) Medication: 4% Lidocaine topical cream (Anecream) 30 gm 02/24/2021 12:00:00 AM EDT eCW1 ([facility]) Medication: 4% Lidocaine topical cream (Anecream) 30 gm 02/17/2021 12:00:00 AM EDT eCW1 ([facility]) XR, ribs, unilateral, 2 view 02/16/2021 12:00:00 AM ED T [place] ([facility]) XR, ribs, unilateral, 2 view 02/16/2021 12:00:00 AM ED T [place] ([facility]) XR, ribs, unilateral, 2 view 02/16/2021 12:00:00 AM ED T [place] ([facility]) XR, ribs, unilateral, 2 view 02/16/2021 12:00:00 AM ED T [place] ([facility]) XR, ribs, unilateral, 2 view 02/16/2021 12:00:00 AM ED T [place] ([facility]) XR, ribs, unilateral, 2 view 02/16/2021 12:00:00 AM ED T [place] ([facility]) DEBRIDEMENT NAIL ANY METHOD 02/14/2021 12:00:00 AM EDT [facility] ([facility] Medication: 4% Lidocaine topical cream (Anecream) 30 gm 01/27/2021 12:00:00 AM EDT eCW1 ([facility]) Medication: 4% Lidocaine topical cream (Anecream) 30 gm 01/19/2021 12:00:00 AM EDT eCW1 ([facility]) Medication: 4% Lidocaine topical cream (Anecream) 30 gm 01/12/2021 12:00:00 AM EDT eCW1 ([facility]) Medication: 4% Lidocaine topical cream (Anecream) 30 gm 01/06/2021 12:00:00 AM EDT eCW1 ([facility]) Medication: 4% Lidocaine topical cream (Anecream) 30 gm 12/29/2020 12:00:00 AM EDT eCW1 ([facility]) Medication: 4% Lidocaine topical cream (Anecream) 30 gm 12/23/2020 12:00:00 AM EDT eCW1 ([facility]) Medication: Aquaphor healing ointment topical 12/24/19 12:00:00 AM EDT eCW1 ([facility]) DEBRIDEMENT NAIL ANY METHOD 12/15/2020 12:00:00 AM EDT [place] ([facility] OFFICE OUTPATIENT VISIT 15 MINUTES 12/15/2020 12:00:00 AM EDT [facility] ([facility] Medication: 4% Lidocaine topical cream (Anecream) 30 gm 12/09/2020 12:00:00 AM EDT eCW1 ([facility]) FINE NEEDLE ASPIRATION W/O IMAGING GUIDANCE 12/02/2020 12:00:00 AM EDT eCW1 ([facility]) Medication: 4% Lidocaine topical cream (Anecream) 30 gm 11/23/2020 12:00:00 AM EDT eCW1 ([facility]) FINE NEEDLE ASPIRATION W/O IMAGING GUIDANCE 11/16/2020 12:00:00 AM EDT eCW1 ([facility]) Medication: Aquaphor healing ointment topical 11/09/19 12:00:00 AM EST eCW1 ([facility]) Medication: 4% Lidocaine topical cream (Anecream) 30 gm 11/08/2020 12:00:00 AM EST eCW1 ([facility]) Medication: 2% Lidocaine intradermal 11/01/2020 12:00: 00 AM EST eCW1 ([facility]) FINE NEEDLE ASPIRATION W/O IMAGING GUIDANCE 11/01/2020 12:00:00 AM EST eCW1 ([facility]) Medication: Aquaphor healing ointment topical 11/02/19 12:00:00 AM EST eCW1 ([facility]) Medication: Aquaphor healing ointment topical 10/17/19 12:00:00 AM EST eCW1 ([facility]) Medication: 4% Lidocaine topical cream (Anecream) 30 gm 10/17/2020 12:00:00 AM EST eCW1 ([facility]) Medication: 4% Lidocaine topical cream (Anecream) 30 gm 10/07/2020 12:00:00 AM EST eCW1 ([facility]) FINE NEEDLE ASPIRATION W/O IMAGING GUIDANCE 09/30/2020 12:00:00 AM EST eCW1 ([facility]) FINE NEEDLE ASPIRATION W/O IMAGING GUIDANCE 09/23/2020 12:00:00 AM EST eCW1 ([facility]) FINE NEEDLE ASPIRATION W/O IMAGING GUIDANCE 09/14/2020 12:00:00 AM EST eCW1 ([facility]) FINE NEEDLE ASPIRATION W/O IMAGING GUIDANCE 08/24/2020 12:00:00 AM EST eCW1 ([facility]) FINE NEEDLE ASPIRATION W/O IMAGING GUIDANCE 08/17/2020 12:00:00 AM EST eCW1 ([facility]) FINE NEEDLE ASPIRATION W/O IMAGING GUIDANCE 08/11/2020 12:00:00 AM EST eCW1 ([facility]) X-Ray Hip Unilateral With Pelvis 2-3 Views 08/08/2020 12:00:00 AM EST [facility] ([facility] ) FINE NEEDLE ASPIRATION W/O IMAGING GUIDANCE 08/03/2020 12:00:00 AM EST eCW1 ([facility]) FINE NEEDLE ASPIRATION W/O IMAGING GUIDANCE 07/25/2020 12:00:00 AM EST eCW1 ([facility]) FINE NEEDLE ASPIRATION W/O IMAGING GUIDANCE 07/15/2020 12:00:00 AM EST eCW1 ([facility]) FINE NEEDLE ASPIRATION W/O IMAGING GUIDANCE 07/08/2020 12:00:00 AM EST eCW1 ([facility]) FINE NEEDLE ASPIRATION W/O IMAGING GUIDANCE 07/01/2020 12:00:00 AM EDT eCW1 ([facility]) FINE NEEDLE ASPIRATION W/O IMAGING GUIDANCE 06/24/2020 12:00:00 AM EDT eCW1 ([facility]) FINE NEEDLE ASPIRATION W/O IMAGING GUIDANCE 06/09/2020 12:00:00 AM EDT eCW1 ([facility]) Results ID Date Data Source [id number] 06/26/2021 04:30:33 PM EDT [place] ([facility]) Name Value Range Interpretation Code Description Data Romy rce(s) Supporting Document(s) Blood Glucose: mg/dl Blood Glucose: mg/dl [place] ([facility]) ID Date Data Source [id number] 04/20/2021 11:35:00 AM EDT [place] ([facility]) Name Value Range Interpretation Code Description Data Romy rce(s) Supporting Document(s) Leukocytes [#/volume] in Blood by Automated count 3.8 thousand/uL 3 .8-10.8 White Blood Cell Count [place] ([facility]) Hemoglobin [Mass/volume] in Blood 10.4 g/dL 11.7-15.5 Below l ow normal Hemoglobin [place] ([facility]) Erythrocytes [#/volume] in Blood by Automated count 3.75 million /uL 3.80-5.10 Below low normal Red Blood Cell Count [place] ([facility]) Hematocrit [Volume Fraction] of Blood by Automated count 32.4 % 35.0-45.0 Below low normal Hematocrit [place] ([facility]) Erythrocyte mean corpuscular volume [Entitic volume] by Auto mated count 86.4 fL 80.0-100.0 Mcv [place] ([facility]) Erythrocyte mean corpuscular hemoglobin [Entitic mass] by Automated count 27.7 pg 27.0-33.0 Mch [place] ([facility]) Erythrocyte distribution width [Ratio] by Automated count 13.3 % 11.0-15.0 Rdw [place] ([facility]) Erythrocyte mean corpuscular hemoglobin concentration [Mass/volume] by Automated count 32.1 g/dL 32.0-36.0 Mchc [place] ([facility]) Platelets [#/volume] in Blood by Automated count 150 thousand/uL 14 0-400 Platelet Count [place] ([facility]) Platelet mean volume [Entitic volume] in Blood by Demetris 11.0 f L 7.5-12.5 Mpv [place] ([facility]) Neutrophils [#/volume] in Blood by Automated count 1607 cells/uL 15 00-7800 Absolute Neutrophils [place] ([facility]) Lymphocytes [#/volume] in Blood by Automated count 1471 cells/uL 85 0-3900 Absolute Lymphocytes [place] ([facility]) Monocytes [#/volume] in Blood by Automated count 410 cells/uL 200-9 50 Absolute Monocytes [place] ([facility]) Eosinophils [#/volume] in Blood by Automated count 270 cells/uL 15- 500 Absolute Eosinophils [place] ([facility]) Basophils [#/volume] in Blood by Automated count 42 cells/uL 0-200 Absolute Basophils [place] ([facility]) Neutrophils/100 leukocytes in Blood by Automated count 42.3 % 38-80 Neutrophils [place] ([facility]) Lymphocytes/100 leukocytes in Blood by Automated count 38.7 % 15-49 Lymphocytes [place] ([facility]) Monocytes/100 leukocytes in Blood by Automated count 10.8 % 0-13 Monocytes [place] ([facility]) Basophils/100 leukocytes in Blood by Automated count 1.1 % 0-2 Basophils [place] ([facility]) Eosinophils/100 leukocytes in Blood by Automated count 7.1 % 0-8 Eosinophils [facility]) ID Date Data Source [id number] 04/20/2021 11:35:00 AM EDT [facility]) Name Value Range Interpretation Code Description Data Romy rce(s) Supporting Document(s) Pathologist review of Blood tests Pa thologist Review of Peripheral Smear [facility]) ID Date Data Source [id number] 04/20/2021 11:35:00 AM EDT [facility]) Name Value Range Interpretation Code Description Data Romy rce(s) Supporting Document(s) Glucose [Mass/volume] in Serum or Plasma 202 mg/dL 65-99 Above high normal Glucose [facility]) Urea nitrogen [Mass/volume] in Serum or Plasma 17 mg/dL 7-25 Urea Nitrogen (BUN) [facility]) Glomerular filtration rate/1.73 sq M.pre dicted among non-blacks [Volume Rate/Area] in Serum, Plasma or Blood by Creatinine-based formula (CKD-EPI) 70 mL/min/1.73m2 > or = 60 eGFR Non-afr. [place] ([facility]) Creatinine [Mass/volume] in Serum or Plasma 0.82 mg/dL 0.60-0.93 Creatinine [facility]) Urea nitrogen/Creatinine [Mass Ratio] in Serum or Plasma not applic able 6-22 BUN/creatinine Ratio [facility]) Glomerular filtration rate/1.73 sq M.pre dicted among blacks [Volume Rate/Area] in Serum, Plasma or Blood by Creatinine-based formula (CKD-EPI) 81 mL/min/1.73m2 > or = 60 eGFR [place] ([facility]) Sodium [Moles/volume] in Serum or Plasma 138 mmol/L 135-146 Sodium [place] ([facility]) Potassium [Moles/volume] in Serum or Plasma 3.6 mmol/L 3.5-5.3 Potassium [place] ([facility]) Carbon dioxide, total [Moles/volume] in Serum or Plasma 28 mmol/L 20-32 Carbon Dioxide [place] ([facility]) Chloride [Moles/volume] in Serum or Plasma 99 mmol/L 98-110 Chloride [place] ([facility]) Calcium [Mass/volume] in Serum or Plasma 9.1 mg/dL 8.6-10.4 Calcium [place] ([facility]) Protein [Mass/volume] in Serum or Plasma 8.1 g/dL 6.1-8.1 Protein, Total [facility]) Albumin [Mass/volume] in Serum or Plasma 3.8 g/dL 3.6-5.1 Albumin [place] ([facility]) Globulin [Mass/volume] in Serum by calculation 4.3 g/dL_(calc) 1 .9-3.7 Above high normal Globulin [place] ([facility]) Bilirubin.total [Mass/volume] in Serum or Plasma 0.7 mg/dL 0.2-1 .2 Bilirubin, Total [facility]) Albumin/Globulin [Mass Ratio] in Serum or Plasma 0.9 (calc) 1.0-2.5 Below low normal Albumin/globulin Ratio [place] ([facility]) Alkaline phosphatase [Enzymatic activity/volume] in Serum or Plasma 63 U/L 37-153 Alkaline Phosphatase [place] ([facility]) Aspartate aminotransferase [Enzymatic activity/volume] in Serum or Plasma 17 U/L 10-35 Ast [place] ([facility]) Alanine aminotransferase [Enzymatic activity/volume] in Seru m or Plasma 11 U/L 6-29 Alt [place] ([facility]) ID Date Data Source [id number] 04/20/2021 11:35:00 AM EDT [place] ([facility]) Name Value Range Interpretation Code Description Data Romy rce(s) Supporting Document(s) Leukocytes [#/volume] in Blood by Automated count 3.8 thousand/uL 3 .8-10.8 White Blood Cell Count [place] ([facility]) Erythrocytes [#/volume] in Blood by Automated count 3.75 million /uL 3.80-5.10 Below low normal Red Blood Cell Count [place] ([facility]) Hematocrit [Volume Fraction] of Blood by Automated count 32.4 % 35.0-45.0 Below low normal Hematocrit [place] ([facility]) Hemoglobin [Mass/volume] in Blood 10.4 g/dL 11.7-15.5 Below l ow normal Hemoglobin [place] ([facility]) Erythrocyte mean corpuscular volume [Entitic volume] by Auto mated count 86.4 fL 80.0-100.0 Mcv [place] ([facility]) Erythrocyte mean corpuscular hemoglobin [Entitic mass] by Automated count 27.7 pg 27.0-33.0 Mch [place] ([facility]) Erythrocyte distribution width [Ratio] by Automated count 13.3 % 11.0-15.0 Rdw [place] ([facility]) Erythrocyte mean corpuscular hemoglobin concentration [Mass/volume] by Automated count 32.1 g/dL 32.0-36.0 Mchc [place] ([facility]) Platelets [#/volume] in Blood by Automated count 150 thousand/uL 14 0-400 Platelet Count [place] ([facility]) Platelet mean volume [Entitic volume] in Blood by Demetris 11.0 f L 7.5-12.5 Mpv [place] ([facility]) Neutrophils [#/volume] in Blood by Automated count 1607 cells/uL 15 00-7800 Absolute Neutrophils [place] ([facility]) Lymphocytes [#/volume] in Blood by Automated count 1471 cells/uL 85 0-3900 Absolute Lymphocytes [place] ([facility]) Monocytes [#/volume] in Blood by Automated count 410 cells/uL 200-9 50 Absolute Monocytes [place] ([facility]) Eosinophils [#/volume] in Blood by Automated count 270 cells/uL 15- 500 Absolute Eosinophils [place] [facility]) Basophils [#/volume] in Blood by Automated count 42 cells/uL 0-200 [facility] Neutrophils/100 leukocytes in Blood by Automated count 42.3 % 38-80 Neutrophils [place] ([facility]) Monocytes/100 leukocytes in Blood by Automated count 10.8 % 0-13 Monocytes [place] ([facility]) Lymphocytes/100 leukocytes in Blood by Automated count 38.7 % 15-49 Lymphocytes [place] ([facility]) Eosinophils/100 leukocytes in Blood by Automated count 7.1 % 0-8 Eosinophils [place] ([facility]) Basophils/100 leukocytes in Blood by Automated count 1.1 % 0-2 Basophils [facility]) ID Date Data Source [id number] 04/20/2021 11:35:00 AM EDT [facility]) Name Value Range Interpretation Code Description Data Romy rce(s) Supporting Document(s) Pathologist review of Blood tests Pa thologist Review of Peripheral Smear [facility]) ID Date Data Source [id number] 04/20/2021 11:35:00 AM EDT [facility]) Name Value Range Interpretation Code Description Data Romy rce(s) Supporting Document(s) Glucose [Mass/volume] in Serum or Plasma 202 mg/dL 65-99 Above high normal Glucose [place] ([facility]) Urea nitrogen [Mass/volume] in Serum or Plasma 17 mg/dL 7-25 Urea Nitrogen (BUN) [facility]) Creatinine [Mass/volume] in Serum or Plasma 0.82 mg/dL 0.60-0.93 Creatinine [facility]) Glomerular filtration rate/1.73 sq M.pre dicted among non-blacks [Volume Rate/Area] in Serum, Plasma or Blood by Creatinine-based formula (CKD-EPI) 70 mL/min/1.73m2 > or = 60 eGFR Non-afr. [place] ([facility]) Glomerular filtration rate/1.73 sq M.pre dicted among blacks [Volume Rate/Area] in Serum, Plasma or Blood by Creatinine-based formula (CKD-EPI) 81 mL/min/1.73m2 > or = 60 eGFR [place] ([facility]) Urea nitrogen/Creatinine [Mass Ratio] in Serum or Plasma not applic able 6-22 BUN/creatinine Ratio [place] ([facility]) Sodium [Moles/volume] in Serum or Plasma 138 mmol/L 135-146 Sodium [place] ([facility]) Potassium [Moles/volume] in Serum or Plasma 3.6 mmol/L 3.5-5.3 Potassium [place] ([facility]) Chloride [Moles/volume] in Serum or Plasma 99 mmol/L 98-110 Chloride [place] ([facility]) Carbon dioxide, total [Moles/volume] in Serum or Plasma 28 mmol/L 20-32 Carbon Dioxide [place] ([facility]) Calcium [Mass/volume] in Serum or Plasma 9.1 mg/dL 8.6-10.4 Calcium [place] ([facility]) Protein [Mass/volume] in Serum or Plasma 8.1 g/dL 6.1-8.1 Protein, Total [place] ([facility]) Albumin [Mass/volume] in Serum or Plasma 3.8 g/dL 3.6-5.1 Albumin [place] ([facility]) Globulin [Mass/volume] in Serum by calculation 4.3 g/dL_(calc) 1 .9-3.7 Above high normal Globulin [place] ([facility]) Albumin/Globulin [Mass Ratio] in Serum or Plasma 0.9 (calc) 1.0-2.5 Below low normal Albumin/globulin Ratio [place] ([facility]) Bilirubin.total [Mass/volume] in Serum or Plasma 0.7 mg/dL 0.2-1 .2 Bilirubin, Total [place] ([facility]) Alkaline phosphatase [Enzymatic activity/volume] in Serum or Plasma 63 U/L 37-153 Alkaline Phosphatase [place] ([facility]) Aspartate aminotransferase [Enzymatic activity/volume] in Serum or Plasma 17 U/L 10-35 Ast [place] ([facility]) Alanine aminotransferase [Enzymatic activity/volume] in Seru m or Plasma 11 U/L 6-29 Alt [place] ([facility]) ID Date Data Source [id number] 04/06/2021 10:13:00 AM EDT [facility]) Name Value Range Interpretation Code Description Data Romy rce(s) Supporting Document(s) Blood Glucose: mg/dl Blood Glucose: mg/dl [place] ([facility]) ID Date Data Source [id number] 04/06/2021 10:13:00 AM EDT [facility]) Name Value Range Interpretation Code Description Data Romy rce(s) Supporting Document(s) Blood Glucose: mg/dl Blood Glucose: mg/dl [facility]) ID Date Data Source [id number] 04/06/2021 10:13:00 AM EDT [facility]) Name Value Range Interpretation Code Description Data Romy rce(s) Supporting Document(s) Blood Glucose: mg/dl Blood Glucose: mg/dl [facility]) ID Date Data Source [id number] 03/22/2021 08:46:00 PM EDT [facility]) Name Value Range Interpretation Code Description Data Romy rce(s) Supporting Document(s) bedside glucose 185 mg/dL 83-110 Above high normal Bedside Gluco se [facility]) ID Date Data Source [id number] 03/22/2021 08:46:00 PM EDT [facility]) Name Value Range Interpretation Code Description Data Romy rce(s) Supporting Document(s) bedside glucose 185 mg/dL 83-110 Above high normal Bedside Gluco se [facility]) ID Date Data Source [id number] 03/22/2021 08:46:00 PM EDT [facility]) Name Value Range Interpretation Code Description Data Romy rce(s) Supporting Document(s) bedside glucose 185 mg/dL 83-110 Above high normal Bedside Gluco se [place] ([facility]) ID Date Data Source [id number] 03/22/2021 08:46:00 PM EDT [place] ([facility]) Name Value Range Interpretation Code Description Data Romy rce(s) Supporting Document(s) bedside glucose 185 mg/dL 83-110 Above high normal Bedside Gluco se [place] ([facility]) ID Date Data Source [id number] 03/22/2021 06:13:00 PM EDT [facility]) Name Value Range Interpretation Code Description Data Romy rce(s) Supporting Document(s) bedside glucose 89 mg/dL 83-110 Bedside Glucose [place] ([facility]) ID Date Data Source [id number] 03/22/2021 06:13:00 PM EDT [facility]) Name Value Range Interpretation Code Description Data Romy rce(s) Supporting Document(s) bedside glucose 89 mg/dL 83-110 Bedside Glucose [place] ([facility]) ID Date Data Source [id number] 03/22/2021 06:13:00 PM EDT [facility]) Name Value Range Interpretation Code Description Data Romy rce(s) Supporting Document(s) bedside glucose 89 mg/dL 83-110 Bedside Glucose [place] ([facility]) ID Date Data Source [id number] 03/22/2021 06:13:00 PM EDT [facility]) Name Value Range Interpretation Code Description Data Romy rce(s) Supporting Document(s) bedside glucose 89 mg/dL 83-110 Bedside Glucose ATHE [place] ([facility]) ID Date Data Source [id number] 03/22/2021 12:09:00 PM EDT [facility]) Name Value Range Interpretation Code Description Data Romy rce(s) Supporting Document(s) bedside glucose 179 mg/dL 83-110 Above high normal [facility] ID Date Data Source [id number] 03/22/2021 12:09:00 PM EDT [facility]) Name Value Range Interpretation Code Description Data Romy rce(s) Supporting Document(s) bedside glucose 179 mg/dL 83-110 Above high normal Bedside Gluco se [facility]) ID Date Data Source [id number] 03/22/2021 12:09:00 PM EDT [facility]) Name Value Range Interpretation Code Description Data Romy rce(s) Supporting Document(s) bedside glucose 179 mg/dL 83-110 Above high normal [facility] ID Date Data Source [id number] 03/22/2021 12:09:00 PM EDT [facility]) Name Value Range Interpretation Code Description Data Romy rce(s) Supporting Document(s) bedside glucose 179 mg/dL 83-110 Above high normal [facility]side [facility]o se [facility] ID Date Data Source [id number] 03/21/2021 08:25:00 PM EDT [facility]) Name Value Range Interpretation Code Description Data Romy rce(s) Supporting Document(s) bedside glucose 110 mg/dL 83-110 Bedside Glucose ATHE [facility]) ID Date Data Source [id number] 03/21/2021 08:25:00 PM EDT [facility]) Name Value Range Interpretation Code Description Data Romy rce(s) Supporting Document(s) bedside glucose 110 mg/dL 83-110 Bedside Glucose [place] ([facility]) ID Date Data Source [id number] 03/21/2021 08:25:00 PM EDT [place] ([facility]) Name Value Range Interpretation Code Description Data Romy rce(s) Supporting Document(s) bedside glucose 110 mg/dL 83-110 Bedside Glucose [place] ([facility]) ID Date Data Source [id number] 03/21/2021 08:25:00 PM EDT [facility]) Name Value Range Interpretation Code Description Data Romy rce(s) Supporting Document(s) bedside glucose 110 mg/dL 83-110 Bedside Glucose ATHE [place] ([facility]) ID Date Data Source [id number] 03/21/2021 05:03:00 PM EDT [facility]) Name Value Range Interpretation Code Description Data Romy rce(s) Supporting Document(s) bedside glucose 138 mg/dL 83-110 Above high normal Bedside Gluco se [facility]) ID Date Data Source [id number] 03/21/2021 05:03:00 PM EDT [facility]) Name Value Range Interpretation Code Description Data Romy rce(s) Supporting Document(s) bedside glucose 138 mg/dL 83-110 Above high normal Bedside Gluco se [place] ([facility]) ID Date Data Source [id number] 03/21/2021 05:03:00 PM EDT [facility]) Name Value Range Interpretation Code Description Data Romy rce(s) Supporting Document(s) bedside glucose 138 mg/dL 83-110 Above high normal Bedside Gluco se [facility]) ID Date Data Source [id number] 03/21/2021 05:03:00 PM EDT [facility]) Name Value Range Interpretation Code Description Data Romy rce(s) Supporting Document(s) bedside glucose 138 mg/dL 83-110 Above high normal Bedside Gluco se [facility]) ID Date Data Source [id number] 03/21/2021 12:44:00 PM EDT [facility]) Name Value Range Interpretation Code Description Data Romy rce(s) Supporting Document(s) bedside glucose 139 mg/dL 83-110 Above high normal Bedside Gluco se [facility]) ID Date Data Source [id number] 03/21/2021 12:44:00 PM EDT [facility]) Name Value Range Interpretation Code Description Data Romy rce(s) Supporting Document(s) bedside glucose 139 mg/dL 83-110 Above high normal Bedside Gluco se [facility]) ID Date Data Source [id number] 03/21/2021 12:44:00 PM EDT [facility]) Name Value Range Interpretation Code Description Data Romy rce(s) Supporting Document(s) bedside glucose 139 mg/dL 83-110 Above high normal Bedside Gluco se [facility]) ID Date Data Source [id number] 03/21/2021 12:44:00 PM EDT [facility]) Name Value Range Interpretation Code Description Data Romy rce(s) Supporting Document(s) bedside glucose 139 mg/dL 83-110 Above high normal Bedside Gluco se [facility]) ID Date Data Source [id number] 03/21/2021 09:08:00 AM EDT [facility]) Name Value Range Interpretation Code Description Data Romy rce(s) Supporting Document(s) bedside glucose 128 mg/dL 83-110 Above high normal Bedside Gluco se [facility]) ID Date Data Source [id number] 03/21/2021 09:08:00 AM EDT [facility]) Name Value Range Interpretation Code Description Data Romy rce(s) Supporting Document(s) bedside glucose 128 mg/dL 83-110 Above high normal Bedside Gluco se [facility]) ID Date Data Source [id number] 03/21/2021 09:08:00 AM EDT [facility]) Name Value Range Interpretation Code Description Data Romy rce(s) Supporting Document(s) bedside glucose 128 mg/dL 83-110 Above high normal Bedside Gluco se [facility]) ID Date Data Source [id number] 03/21/2021 09:08:00 AM EDT [facility]) Name Value Range Interpretation Code Description Data Romy rce(s) Supporting Document(s) bedside glucose 128 mg/dL 83-110 Above high normal Bedside Gluco se [facility]) ID Date Data Source [id number] 03/20/2021 10:59:00 PM EDT [facility]) Name Value Range Interpretation Code Description Data Romy rce(s) Supporting Document(s) troponin I < 0.02 < 0.10 Troponin I [facility]) ID Date Data Source [id number] 03/20/2021 10:59:00 PM EDT [facility]) Name Value Range Interpretation Code Description Data Romy rce(s) Supporting Document(s) blood urea nitrogen 12 mg/dL 7-18 Blood Urea Nitro gen [place] ([facility]) glucose, fasting 150 mg/dL 70-100 Above high normal Glucose, Fas ting [place] ([facility]) sodium level 142 mEq/L 136-145 Sodium Level [place] (No [facility]) glomerular filtration rate > 60.0 >39 Glomerula r Filtration Rate [place] ([facility]) creatinine for GFR 0.70 mg/dL 0.55-1.30 Creatinine for GF R [place] ([facility]) chloride level 109 mEq/L 98-107 Above high normal Chloride Level [place] ([facility]) potassium serum 3.9 mEq/L 3.5-5.1 Potassium Serum [place] ([facility]) carbon dioxide level 29 mEq/L 21-32 Carbon Dioxide Level [place] ([facility]) anion gap 4 mEq/L 8-16 Below low normal Anion Gap [place] ( [facility]) calcium level 8.2 mg/dL 8.8-10.2 Below low normal Calcium Level AT [facility]) ID Date Data Source [id number] 03/20/2021 10:59:00 PM EDT [place] ([facility]) Name Value Range Interpretation Code Description Data Romy rce(s) Supporting Document(s) white blood count 3.9 10 4.0-10.0 Below low normal White Blood Count [place] ([facility]) red blood count 3.39 10 4.00-5.40 Below low normal Red Blood Coun t [place] ([facility]) hemoglobin 9.5 g/dL 12.0-15.5 Below low normal Hemoglobin [place] ( [facility]) hematocrit 28.9 % 36.0-47.0 Below low normal Hematocrit [place] ( [facility]) mean corpuscular volume 85.3 fL 80.0-96.0 Mean Corpusc ular Volume [place] ([facility]) mean corpuscular hemoglobin 28.0 pg 27.0-33.0 Mean Cor puscular Hemoglobin [place] ([facility]) mean corpuscular HGB conc 32.9 g/dL 32.0-36.5 Mean Corpu scular HGB Conc [place] ([facility]) red cell distribution width 14.2 % 11.5-14.5 Red Cell Distribution Width [place] ([facility]) platelet count, automated 111 10 150-450 Below low marlon l Platelet Count, Automated [place] ([facility]) nucleated red blood cell % 0.0 % 0-0 Nucleated Red Blood Cell % [place] ([facility]) ID Date Data Source [id number] 03/20/2021 10:59:00 PM EDT [place] ([facility]) Name Value Range Interpretation Code Description Data Romy rce(s) Supporting Document(s) troponin I < 0.02 < 0.10 Troponin I [place] ([facility]) ID Date Data Source [id number] 03/20/2021 10:59:00 PM EDT [place] ([facility]) Name Value Range Interpretation Code Description Data Romy rce(s) Supporting Document(s) glucose, fasting 150 mg/dL 70-100 Above high normal Glucose, Fas ting [place] ([facility]) blood urea nitrogen 12 mg/dL 7-18 Blood Urea Nitro gen [place] ([facility]) creatinine for GFR 0.70 mg/dL 0.55-1.30 Creatinine for GF R [place] ([facility]) sodium level 142 mEq/L 136-145 Sodium Level [place] (No [facility]) glomerular filtration rate > 60.0 >39 Glomerula r Filtration Rate [place] ([facility]) potassium serum 3.9 mEq/L 3.5-5.1 Potassium Serum [place] ([facility]) chloride level 109 mEq/L 98-107 Above high normal Chloride Level [place] ([facility]) anion gap 4 mEq/L 8-16 Below low normal Anion Gap [place] ( [facility]) carbon dioxide level 29 mEq/L 21-32 Carbon Dioxide Level [place] ([facility]) calcium level 8.2 mg/dL 8.8-10.2 Below low normal Calcium Level AT [facility]) ID Date Data Source [id number] 03/20/2021 10:59:00 PM EDT [place] ([facility]) Name Value Range Interpretation Code Description Data Romy rce(s) Supporting Document(s) white blood count 3.9 10 4.0-10.0 Below low normal White Blood Count [place] ([facility]) red blood count 3.39 10 4.00-5.40 Below low normal Red Blood Coun t [place] ([facility]) hemoglobin 9.5 g/dL 12.0-15.5 Below low normal Hemoglobin [place] ( [facility]) hematocrit 28.9 % 36.0-47.0 Below low normal Hematocrit [place] ( [facility]) mean corpuscular volume 85.3 fL 80.0-96.0 Mean Corpusc ular Volume [place] ([facility]) mean corpuscular hemoglobin 28.0 pg 27.0-33.0 Mean Cor puscular Hemoglobin [place] ([facility]) mean corpuscular HGB conc 32.9 g/dL 32.0-36.5 Mean Corpu scular HGB Conc [place] ([facility]) red cell distribution width 14.2 % 11.5-14.5 Red Cell Distribution Width [place] ([facility]) nucleated red blood cell % 0.0 % 0-0 Nucleated Red Blood Cell % [place] ([facility]) platelet count, automated 111 10 150-450 Below low marlon l Platelet Count, Automated [place] ([facility]) ID Date Data Source [id number] 03/20/2021 10:59:00 PM EDT [place] ([facility]) Name Value Range Interpretation Code Description Data Romy rce(s) Supporting Document(s) troponin I < 0.02 < 0.10 Troponin I [facility]) ID Date Data Source [id number] 03/20/2021 10:59:00 PM EDT [place] ([facility]) Name Value Range Interpretation Code Description Data Romy rce(s) Supporting Document(s) glucose, fasting 150 mg/dL 70-100 Above high normal Glucose, Fas ting [place] ([facility]) blood urea nitrogen 12 mg/dL 7-18 Blood Urea Nitro gen [place] ([facility]) creatinine for GFR 0.70 mg/dL 0.55-1.30 Creatinine for GF R [place] ([facility]) potassium serum 3.9 mEq/L 3.5-5.1 Potassium Serum [place] NA ([facility]) glomerular filtration rate > 60.0 >39 Glomerula r Filtration Rate [place] ([facility]) sodium level 142 mEq/L 136-145 Sodium Level [place] (No [facility]) chloride level 109 mEq/L 98-107 Above high normal Chloride Level [place] ([facility]) carbon dioxide level 29 mEq/L 21-32 Carbon Dioxide Level [place] ([facility]) anion gap 4 mEq/L 8-16 Below low normal Anion Gap [place] ( [facility]) calcium level 8.2 mg/dL 8.8-10.2 Below low normal Calcium Level [place] ([facility]) ID Date Data Source [id number] 03/20/2021 10:59:00 PM EDT [place] ([facility]) Name Value Range Interpretation Code Description Data Romy rce(s) Supporting Document(s) white blood count 3.9 10 4.0-10.0 Below low normal White Blood Count [place] ([facility]) hemoglobin 9.5 g/dL 12.0-15.5 Below low normal Hemoglobin [place] ( [facility]) red blood count 3.39 10 4.00-5.40 Below low normal Red Blood Coun t [place] ([facility]) mean corpuscular volume 85.3 fL 80.0-96.0 Mean Corpusc ular Volume [place] ([facility]) hematocrit 28.9 % 36.0-47.0 Below low normal Hematocrit [place] ( [facility]) mean corpuscular hemoglobin 28.0 pg 27.0-33.0 Mean Cor puscular Hemoglobin [place] ([facility]) mean corpuscular HGB conc 32.9 g/dL 32.0-36.5 Mean Corpu scular HGB Conc [place] ([facility]) red cell distribution width 14.2 % 11.5-14.5 Red Cell Distribution Width [place] ([facility]) platelet count, automated 111 10 150-450 Below low marlon l Platelet Count, Automated [place] ([facility]) nucleated red blood cell % 0.0 % 0-0 Nucleated Red Blood Cell % [place] ([facility]) ID Date Data Source [id number] 03/20/2021 10:59:00 PM EDT [place] ([facility]) Name Value Range Interpretation Code Description Data Romy rce(s) Supporting Document(s) troponin I < 0.02 < 0.10 Troponin I [facility]) ID Date Data Source [id number] 03/20/2021 10:59:00 PM EDT [facility]) Name Value Range Interpretation Code Description Data Romy rce(s) Supporting Document(s) creatinine for GFR 0.70 mg/dL 0.55-1.30 Creatinine for GF R [place] ([facility]) glucose, fasting 150 mg/dL 70-100 Above high normal Glucose, Fas ting [place] ([facility]) blood urea nitrogen 12 mg/dL 7-18 Blood Urea Nitro gen [place] ([facility]) sodium level 142 mEq/L 136-145 Sodium Level [place] (No [facility]) glomerular filtration rate > 60.0 >39 Glomerula r Filtration Rate [place] ([facility]) potassium serum 3.9 mEq/L 3.5-5.1 Potassium Serum ATH NA ([facility]) chloride level 109 mEq/L 98-107 Above high normal Chloride Level [place] ([facility]) carbon dioxide level 29 mEq/L 21-32 Carbon Dioxide Level [place] ([facility]) calcium level 8.2 mg/dL 8.8-10.2 Below low normal Calcium Level AT [facility]) anion gap 4 mEq/L 8-16 Below low normal Anion Gap [place] ( [facility]) ID Date Data Source [id number] 03/20/2021 10:59:00 PM EDT [place] ([facility]) Name Value Range Interpretation Code Description Data Romy rce(s) Supporting Document(s) red blood count 3.39 10 4.00-5.40 Below low normal Red Blood Coun t [place] ([facility]) white blood count 3.9 10 4.0-10.0 Below low normal White Blood Count [place] ([facility]) hemoglobin 9.5 g/dL 12.0-15.5 Below low normal Hemoglobin [place] ( [facility]) hematocrit 28.9 % 36.0-47.0 Below low normal Hematocrit [place] ( [facility]) mean corpuscular volume 85.3 fL 80.0-96.0 Mean Corpusc ular Volume [place] ([facility]) mean corpuscular HGB conc 32.9 g/dL 32.0-36.5 Mean Corpu scular HGB Conc [place] ([facility]) red cell distribution width 14.2 % 11.5-14.5 Red Cell Distribution Width [place] ([facility]) mean corpuscular hemoglobin 28.0 pg 27.0-33.0 Mean Cor puscular Hemoglobin [place] ([facility]) platelet count, automated 111 10 150-450 Below low marlon l Platelet Count, Automated [place] ([facility]) nucleated red blood cell % 0.0 % 0-0 Nucleated Red Blood Cell % [place] ([facility]) ID Date Data Source [id number] 03/20/2021 10:25:00 PM EDT [place] ([facility]) Name Value Range Interpretation Code Description Data Romy rce(s) Supporting Document(s) bedside glucose 151 mg/dL 83-110 Above high normal Bedside Gluco se [place] ([facility]) ID Date Data Source [id number] 03/20/2021 10:25:00 PM EDT [facility]) Name Value Range Interpretation Code Description Data Romy rce(s) Supporting Document(s) bedside glucose 151 mg/dL 83-110 Above high normal Bedside Gluco se [place] ([facility]) ID Date Data Source [id number] 03/20/2021 10:25:00 PM EDT [facility]) Name Value Range Interpretation Code Description Data Romy rce(s) Supporting Document(s) bedside glucose 151 mg/dL 83-110 Above high normal Bedside Gluco se [place] ([facility]) ID Date Data Source [id number] 03/20/2021 10:25:00 PM EDT [facility]) Name Value Range Interpretation Code Description Data Romy rce(s) Supporting Document(s) bedside glucose 151 mg/dL 83-110 Above high normal Bedside Gluco se [facility]) ID Date Data Source [id number] 03/20/2021 05:56:00 PM EDT [facility]) Name Value Range Interpretation Code Description Data Romy rce(s) Supporting Document(s) glucose, fasting 150 mg/dL 70-100 Above high normal Glucose, Fas ting [place] ([facility]) blood urea nitrogen 10 mg/dL 7-18 Blood Urea Nitro gen [place] ([facility]) creatinine for GFR 0.67 mg/dL 0.55-1.30 Creatinine for GF R [place] ([facility]) glomerular filtration rate > 60.0 >39 Glomerula r Filtration Rate [place] ([facility]) sodium level 140 mEq/L 136-145 Sodium Level [place] (No [facility]) potassium serum 3.7 mEq/L 3.5-5.1 Potassium Serum ATH NA ([facility]) chloride level 108 mEq/L 98-107 Above high normal Chloride Level [place] ([facility]) carbon dioxide level 24 mEq/L 21-32 Carbon Dioxide Level [place] ([facility]) anion gap 8 mEq/L 8-16 Anion Gap [place] ([facility]) calcium level 8.7 mg/dL 8.8-10.2 Below low normal Calcium Level [place] ([facility]) AST/SGOT 15 U/L 7-37 AST/SGOT [place] ([facility]) ALT/SGPT 14 U/L 12-78 ALT/SGPT [place] ([facility]) alkaline phosphatase 60 U/L 45-117 Alkaline Phosph atase [place] ([facility]) bilirubin,total 0.5 mg/dL 0.2-1.0 Bilirubin,total [place] ([facility]) total protein 7.8 gm/dL 6.4-8.2 Total Protein [place] ( [facility]) albumin 3.0 gm/dL 3.2-5.2 Below low normal Albumin [place] ( [facility]) albumin/globulin ratio 1.2-2.2 Below low normal Albumin /globulin Ratio [place] ([facility]) ID Date Data Source [id number] 03/20/2021 05:56:00 PM EDT [place] ([facility]) Name Value Range Interpretation Code Description Data Romy rce(s) Supporting Document(s) thyroid stimulating hormone 1.890 uIU/mL 0.358-3.740 Thyroid Stimulating Hormone [place] ([facility]) ID Date Data Source [id number] 03/20/2021 05:56:00 PM EDT [place] ([facility]) Name Value Range Interpretation Code Description Data Romy rce(s) Supporting Document(s) troponin I < 0.02 < 0.10 Troponin I [place] ([facility]) ID Date Data Source [id number] 03/20/2021 05:56:00 PM EDT [place] ([facility]) Name Value Range Interpretation Code Description Data Romy rce(s) Supporting Document(s) partial thromboplastin time 33.1 seconds 24.2-38.5 Partial Thromboplastin Time [place] ([facility]) ID Date Data Source [id number] 03/20/2021 05:56:00 PM EDT [place] ([facility]) Name Value Range Interpretation Code Description Data Romy rce(s) Supporting Document(s) INR Inr [place] ([facility]) prothrombin time 15.6 seconds 12.5-14.3 Above high normal Prothrombi n Time [place] ([facility]) ID Date Data Source [id number] 03/20/2021 05:56:00 PM EDT [place] ([facility]) Name Value Range Interpretation Code Description Data Romy rce(s) Supporting Document(s) white blood count 4.0 10 4.0-10.0 White Blood Count [place] ([facility]) hemoglobin 10.7 g/dL 12.0-15.5 Below low normal Hemoglobin [place] ( [facility]) red blood count 3.88 10 4.00-5.40 Below low normal Red Blood Coun t [place] ([facility]) hematocrit 32.4 % 36.0-47.0 Below low normal Hematocrit [place] ( [facility]) mean corpuscular volume 83.5 fL 80.0-96.0 Mean Corpusc ular Volume [place] ([facility]) mean corpuscular hemoglobin 27.6 pg 27.0-33.0 Mean Cor puscular Hemoglobin [place] ([facility]) mean corpuscular HGB conc 33.0 g/dL 32.0-36.5 Mean Corpu scular HGB Conc [place] ([facility]) red cell distribution width 14.2 % 11.5-14.5 Red Cell Distribution Width [place] ([facility]) nucleated red blood cell % 0.0 % 0-0 Nucleated Red Blood Cell % [place] ([facility]) platelet count, automated 137 10 150-450 Below low marlon l [facility] ID Date Data Source [id number] 03/20/2021 05:56:00 PM EDT [place] ([facility]) Name Value Range Interpretation Code Description Data Romy rce(s) Supporting Document(s) glucose, fasting 150 mg/dL 70-100 Above high normal Glucose, Fas ting [place] ([facility]) blood urea nitrogen 10 mg/dL 7-18 Blood Urea Nitro gen [place] ([facility]) glomerular filtration rate > 60.0 >39 Glomerula r Filtration Rate [place] ([facility]) creatinine for GFR 0.67 mg/dL 0.55-1.30 Creatinine for GF R [place] ([facility]) sodium level 140 mEq/L 136-145 Sodium Level [place] ([facility]) potassium serum 3.7 mEq/L 3.5-5.1 Potassium Serum [place] ([facility]) chloride level 108 mEq/L 98-107 Above high normal Chloride Level [place] ([facility]) anion gap 8 mEq/L 8-16 Anion Gap [place] ([facility]) carbon dioxide level 24 mEq/L 21-32 Carbon Dioxide Level [place] ([facility]) calcium level 8.7 mg/dL 8.8-10.2 Below low normal Calcium Level AT [facility]) AST/SGOT 15 U/L 7-37 AST/SGOT [place] ([facility]) ALT/SGPT 14 U/L 12-78 ALT/SGPT [place] ([facility]) alkaline phosphatase 60 U/L 45-117 Alkaline Phosph atase [place] ([facility]) bilirubin,total 0.5 mg/dL 0.2-1.0 Bilirubin,total [place] ([facility]) total protein 7.8 gm/dL 6.4-8.2 Total Protein [place] ( [facility]) albumin/globulin ratio 1.2-2.2 Below low normal Albumin /globulin Ratio [place] ([facility]) albumin 3.0 gm/dL 3.2-5.2 Below low normal Albumin [place] ( [facility]) ID Date Data Source [id number] 03/20/2021 05:56:00 PM EDT [place] ([facility]) Name Value Range Interpretation Code Description Data Romy rce(s) Supporting Document(s) thyroid stimulating hormone 1.890 uIU/mL 0.358-3.740 Thyroid Stimulating Hormone [place] ([facility]) ID Date Data Source [id number] 03/20/2021 05:56:00 PM [facility] Name Value Range Interpretation Code Description Data Romy rce(s) Supporting Document(s) troponin I < 0.02 < 0.10 Troponin I [place] ([facility]) ID Date Data Source [id number] 03/20/2021 05:56:00 PM EDT [place] ([facility]) Name Value Range Interpretation Code Description Data Romy rce(s) Supporting Document(s) partial thromboplastin time 33.1 seconds 24.2-38.5 Partial Thromboplastin Time [place] ([facility]) ID Date Data Source [id number] 03/20/2021 05:56:00 PM EDT [facility]) Name Value Range Interpretation Code Description Data Romy rce(s) Supporting Document(s) prothrombin time 15.6 seconds 12.5-14.3 Above high normal Prothrombi n Time [place] ([facility]) INR Inr [place] ([facility]) ID Date Data Source [id number] 03/20/2021 05:56:00 PM EDT [facility]) Name Value Range Interpretation Code Description Data Romy rce(s) Supporting Document(s) red blood count 3.88 10 4.00-5.40 Below low normal Red Blood Coun t [place] ([facility]) white blood count 4.0 10 4.0-10.0 White Blood Count [place] ([facility]) hemoglobin 10.7 g/dL 12.0-15.5 Below low normal Hemoglobin [place] ( [facility]) hematocrit 32.4 % 36.0-47.0 Below low normal Hematocrit [place] ( [facility]) mean corpuscular hemoglobin 27.6 pg 27.0-33.0 Mean Cor puscular Hemoglobin [place] ([facility]) mean corpuscular volume 83.5 fL 80.0-96.0 Mean Corpusc ular Volume [place] ([facility]) red cell distribution width 14.2 % 11.5-14.5 Red Cell Distribution Width [place] ([facility]) mean corpuscular HGB conc 33.0 g/dL 32.0-36.5 Mean Corpu scular HGB Conc [place] ([facility]) platelet count, automated 137 10 150-450 Below low marlon l Platelet Count, Automated [place] ([facility]) nucleated red blood cell % 0.0 % 0-0 Nucleated Red Blood Cell % [place] ([facility]) ID Date Data Source [id number] 03/20/2021 05:56:00 PM EDT [place] ([facility]) Name Value Range Interpretation Code Description Data Romy rce(s) Supporting Document(s) blood urea nitrogen 10 mg/dL 7-18 Blood Urea Nitro gen [place] ([facility]) glucose, fasting 150 mg/dL 70-100 Above high normal Glucose, Fas ting [place] ([facility]) creatinine for GFR 0.67 mg/dL 0.55-1.30 Creatinine for GF R [place] ([facility]) glomerular filtration rate > 60.0 >39 Glomerula r Filtration Rate [place] ([facility]) sodium level 140 mEq/L 136-145 Sodium Level [place] (No [facility]) potassium serum 3.7 mEq/L 3.5-5.1 Potassium Serum ATH NA [facility]) chloride level 108 mEq/L 98-107 Above high normal Chloride Level [place] ([facility]) anion gap 8 mEq/L 8-16 Anion Gap [place] ([facility]) carbon dioxide level 24 mEq/L 21-32 Carbon Dioxide Level [place] ([facility]) calcium level 8.7 mg/dL 8.8-10.2 Below low normal Calcium Level [place] ([facility]) AST/SGOT 15 U/L 7-37 AST/SGOT [place] ([facility]) ALT/SGPT 14 U/L 12-78 ALT/SGPT [place] ([facility]) alkaline phosphatase 60 U/L 45-117 Alkaline Phosph atase [place] ([facility]) total protein 7.8 gm/dL 6.4-8.2 Total Protein [place] ( [facility]) bilirubin,total 0.5 mg/dL 0.2-1.0 Bilirubin,total [place] ([facility]) albumin 3.0 gm/dL 3.2-5.2 Below low normal Albumin [place] ( [facility]) albumin/globulin ratio 1.2-2.2 Below low normal Albumin /globulin Ratio [place] ([facility]) ID Date Data Source [id number] 03/20/2021 05:56:00 PM EDT [place] ([facility]) Name Value Range Interpretation Code Description Data Romy rce(s) Supporting Document(s) thyroid stimulating hormone 1.890 uIU/mL 0.358-3.740 Thyroid Stimulating Hormone [place] ([facility]) ID Date Data Source [id number] 03/20/2021 05:56:00 PM EDT [place] ([facility]) Name Value Range Interpretation Code Description Data Romy rce(s) Supporting Document(s) troponin I < 0.02 < 0.10 Troponin I [place] ([facility]) ID Date Data Source [id number] 03/20/2021 05:56:00 PM EDT [place] ([facility]) Name Value Range Interpretation Code Description Data Romy rce(s) Supporting Document(s) partial thromboplastin time 33.1 seconds 24.2-38.5 [facility] ID Date Data Source [id number] 03/20/2021 05:56:00 PM EDT [place] ([facility]) Name Value Range Interpretation Code Description Data Romy rce(s) Supporting Document(s) prothrombin time 15.6 seconds 12.5-14.3 Above high normal Prothrombi n Time [place] ([facility]) INR Inr [place] ([facility]) ID Date Data Source [id number] 03/20/2021 05:56:00 PM EDT [place] ([facility]) Name Value Range Interpretation Code Description Data Romy rce(s) Supporting Document(s) white blood count 4.0 10 4.0-10.0 White Blood Count [place] ([facility]) red blood count 3.88 10 4.00-5.40 Below low normal Red Blood Coun t [place] ([facility]) hematocrit 32.4 % 36.0-47.0 Below low normal Hematocrit [place] ( [facility]) hemoglobin 10.7 g/dL 12.0-15.5 Below low normal Hemoglobin [place] ( [facility]) mean corpuscular hemoglobin 27.6 pg 27.0-33.0 Mean Cor puscular Hemoglobin [place] ([facility]) mean corpuscular volume 83.5 fL 80.0-96.0 Mean Corpusc ular Volume [place] ([facility]) red cell distribution width 14.2 % 11.5-14.5 Red Cell Distribution Width [place] ([facility]) mean corpuscular HGB conc 33.0 g/dL 32.0-36.5 Mean Corpu scular HGB Conc [place] ([facility]) platelet count, automated 137 10 150-450 Below low marlon l Platelet Count, Automated [place] ([facility]) nucleated red blood cell % 0.0 % 0-0 Nucleated Red Blood Cell % [place] ([facility]) ID Date Data Source [id number] 03/20/2021 05:56:00 PM EDT [place] ([facility]) Name Value Range Interpretation Code Description Data Romy rce(s) Supporting Document(s) glucose, fasting 150 mg/dL 70-100 Above high normal Glucose, Fas ting [place] ([facility]) blood urea nitrogen 10 mg/dL 7-18 Blood Urea Nitro gen [place] ([facility]) glomerular filtration rate > 60.0 >39 Glomerula r Filtration Rate [place] ([facility]) creatinine for GFR 0.67 mg/dL 0.55-1.30 Creatinine for GF R [place] ([facility]) sodium level 140 mEq/L 136-145 Sodium Level [place] (No [facility]) potassium serum 3.7 mEq/L 3.5-5.1 Potassium Serum [place] ([facility]) chloride level 108 mEq/L 98-107 Above high normal Chloride Level [place] ([facility]) carbon dioxide level 24 mEq/L 21-32 Carbon Dioxide Level [place] ([facility]) AST/SGOT 15 U/L 7-37 AST/SGOT [place] ([facility]) anion gap 8 mEq/L 8-16 Anion Gap [place] ([facility]) calcium level 8.7 mg/dL 8.8-10.2 Below low normal Calcium Level [place] ([facility]) alkaline phosphatase 60 U/L 45-117 Alkaline Phosph atase [place] ([facility]) ALT/SGPT 14 U/L 12-78 ALT/SGPT [place] ([facility]) bilirubin,total 0.5 mg/dL 0.2-1.0 Bilirubin,total [place] ([facility]) albumin 3.0 gm/dL 3.2-5.2 Below low normal Albumin [place] ( [facility]) total protein 7.8 gm/dL 6.4-8.2 Total Protein [place] ( [facility]) albumin/globulin ratio 1.2-2.2 Below low normal Albumin /globulin Ratio [place] ([facility]) ID Date Data Source [id number] 03/20/2021 05:56:00 PM EDT [facility] Name Value Range Interpretation Code Description Data Romy rce(s) Supporting Document(s) thyroid stimulating hormone 1.890 uIU/mL 0.358-3.740 Thyroid Stimulating Hormone [place] ([facility]) ID Date Data Source [id number] 03/20/2021 05:56:00 PM EDT [place] ([facility]) Name Value Range Interpretation Code Description Data Romy rce(s) Supporting Document(s) troponin I < 0.02 < 0.10 Troponin I [place] ([facility]) ID Date Data Source [id number] 03/20/2021 05:56:00 PM EDT [facility]) Name Value Range Interpretation Code Description Data Romy rce(s) Supporting Document(s) partial thromboplastin time 33.1 seconds 24.2-38.5 Partial Thromboplastin Time [place] ([facility]) ID Date Data Source [id number] 03/20/2021 05:56:00 PM EDT [facility]) Name Value Range Interpretation Code Description Data Romy rce(s) Supporting Document(s) prothrombin time 15.6 seconds 12.5-14.3 Above high normal Prothrombi n Time [place] ([facility]) INR Inr [place] ([facility]) ID Date Data Source [id number] 03/20/2021 05:56:00 PM EDT [place] ([facility]) Name Value Range Interpretation Code Description Data Romy rce(s) Supporting Document(s) white blood count 4.0 10 4.0-10.0 White Blood Count [place] ([facility]) hemoglobin 10.7 g/dL 12.0-15.5 Below low normal Hemoglobin [place] ( [facility]) red blood count 3.88 10 4.00-5.40 Below low normal Red Blood Coun t [facility]) mean corpuscular volume 83.5 fL 80.0-96.0 Mean Corpusc ular Volume [place] ([facility]) hematocrit 32.4 % 36.0-47.0 Below low normal Hematocrit [place] ( [facility]) mean corpuscular hemoglobin 27.6 pg 27.0-33.0 Mean Cor puscular Hemoglobin [place] ([facility]) mean corpuscular HGB conc 33.0 g/dL 32.0-36.5 Mean Corpu scular HGB Conc [place] ([facility]) red cell distribution width 14.2 % 11.5-14.5 Red Cell Distribution Width [place] ([facility]) nucleated red blood cell % 0.0 % 0-0 Nucleated Red Blood Cell % [place] ([facility]) platelet count, automated 137 10 150-450 Below low marlon l Platelet Count, Automated [place] ([facility]) ID Date Data Source [id number] 03/20/2021 09:34:00 AM EDT [place] ([facility]) Name Value Range Interpretation Code Description Data Romy rce(s) Supporting Document(s) glucose, fasting 127 mg/dL 70-100 Above high normal Glucose, Fas ting [place] ([facility]) creatinine for GFR 0.76 mg/dL 0.55-1.30 Creatinine for GF R [place] ([facility]) blood urea nitrogen 14 mg/dL 7-18 Blood Urea Nitro gen [place] ([facility]) glomerular filtration rate > 60.0 >39 Glomerula r Filtration Rate [place] ([facility]) sodium level 139 mEq/L 136-145 Sodium Level [place] (No [facility]) chloride level 107 mEq/L 98-107 Chloride Level [place] ([facility]) potassium serum 3.5 mEq/L 3.5-5.1 Potassium Serum ATH NA [facility]) carbon dioxide level 27 mEq/L 21-32 Carbon Dioxide Level [place] ([facility]) anion gap 5 mEq/L 8-16 Below low normal Anion Gap [place] ( [facility]) calcium level 9.7 mg/dL 8.8-10.2 Calcium Level [place] ( [facility]) ID Date Data Source [id number] 03/20/2021 09:34:00 AM EDT [place] ([facility]) Name Value Range Interpretation Code Description Data Romy rce(s) Supporting Document(s) white blood count 3.7 10 4.0-10.0 Below low normal White Blood Count [place] ([facility]) red blood count 3.93 10 4.00-5.40 Below low normal Red Blood Coun t [place] ([facility]) hemoglobin 10.6 g/dL 12.0-15.5 Below low normal Hemoglobin [place] ( [facility]) hematocrit 33.9 % 36.0-47.0 Below low normal Hematocrit [place] ( [facility]) mean corpuscular volume 86.3 fL 80.0-96.0 Mean Corpusc ular Volume [place] ([facility]) mean corpuscular HGB conc 31.3 g/dL 32.0-36.5 Below low marlon l Mean Corpuscular HGB Conc [place] ([facility]) mean corpuscular hemoglobin 27.0 pg 27.0-33.0 Mean Cor puscular Hemoglobin [place] ([facility]) platelet count, automated 132 10 150-450 Below low marlon l Platelet Count, Automated [place] ([facility]) red cell distribution width 14.1 % 11.5-14.5 Red Cell Distribution Width [place] ([facility]) nucleated red blood cell % 0.0 % 0-0 Nucleated Red Blood Cell % [place] ([facility]) ID Date Data Source [id number] 03/20/2021 09:34:00 AM EDT [place] ([facility]) Name Value Range Interpretation Code Description Data Romy rce(s) Supporting Document(s) blood urea nitrogen 14 mg/dL 7-18 Blood Urea Nitro gen [place] ([facility]) glucose, fasting 127 mg/dL 70-100 Above high normal Glucose, Fas ting [place] ([facility]) creatinine for GFR 0.76 mg/dL 0.55-1.30 Creatinine for GF R [place] ([facility]) glomerular filtration rate > 60.0 >39 Glomerula r Filtration Rate [place] ([facility]) sodium level 139 mEq/L 136-145 Sodium Level [place] (No [facility]) potassium serum 3.5 mEq/L 3.5-5.1 Potassium Serum ATHE NA ([facility]) chloride level 107 mEq/L 98-107 Chloride Level [place] ([facility]) carbon dioxide level 27 mEq/L 21-32 Carbon Dioxide Level [place] ([facility]) calcium level 9.7 mg/dL 8.8-10.2 Calcium Level [place] ( [facility]) anion gap 5 mEq/L 8-16 Below low normal Anion Gap [place] ( [facility]) ID Date Data Source [id number] 03/20/2021 09:34:00 AM EDT [place] ([facility]) Name Value Range Interpretation Code Description Data Romy rce(s) Supporting Document(s) white blood count 3.7 10 4.0-10.0 Below low normal White Blood Count [place] ([facility]) red blood count 3.93 10 4.00-5.40 Below low normal Red Blood Coun t [place] ([facility]) hemoglobin 10.6 g/dL 12.0-15.5 Below low normal Hemoglobin [place] ( [facility]) hematocrit 33.9 % 36.0-47.0 Below low normal Hematocrit [place] ( [facility]) mean corpuscular hemoglobin 27.0 pg 27.0-33.0 Mean Cor puscular Hemoglobin [place] ([facility]) mean corpuscular volume 86.3 fL 80.0-96.0 Mean Corpusc ular Volume [place] ([facility]) mean corpuscular HGB conc 31.3 g/dL 32.0-36.5 Below low marlon l Mean Corpuscular HGB Conc [place] ([facility]) red cell distribution width 14.1 % 11.5-14.5 Red Cell Distribution Width [place] ([facility]) nucleated red blood cell % 0.0 % 0-0 Nucleated Red Blood Cell % [place] ([facility]) platelet count, automated 132 10 150-450 Below low marlon l Platelet Count, Automated [place] ([facility]) ID Date Data Source [id number] 03/20/2021 09:34:00 AM EDT [place] ([facility]) Name Value Range Interpretation Code Description Data Romy rce(s) Supporting Document(s) glucose, fasting 127 mg/dL 70-100 Above high normal Glucose, Fas ting [place] ([facility]) creatinine for GFR 0.76 mg/dL 0.55-1.30 Creatinine for GF R [place] ([facility]) blood urea nitrogen 14 mg/dL 7-18 Blood Urea Nitro gen [place] ([facility]) glomerular filtration rate > 60.0 >39 Glomerula r Filtration Rate [place] ([facility]) sodium level 139 mEq/L 136-145 Sodium Level [place] (No [facility]) chloride level 107 mEq/L 98-107 Chloride Level [place] ([facility]) potassium serum 3.5 mEq/L 3.5-5.1 Potassium Serum A[place] NA ([facility]) carbon dioxide level 27 mEq/L 21-32 Carbon Dioxide Level [place] ([facility]) anion gap 5 mEq/L 8-16 Below low normal Anion Gap [place] ( [facility]) calcium level 9.7 mg/dL 8.8-10.2 Calcium Level [place] ( [facility]) ID Date Data Source [id number] 03/20/2021 09:34:00 AM EDT [facility]) Name Value Range Interpretation Code Description Data Romy rce(s) Supporting Document(s) white blood count 3.7 10 4.0-10.0 Below low normal White Blood Count [place] ([facility]) hemoglobin 10.6 g/dL 12.0-15.5 Below low normal Hemoglobin [place] ( [facility]) red blood count 3.93 10 4.00-5.40 Below low normal Red Blood Coun t [place] ([facility]) mean corpuscular volume 86.3 fL 80.0-96.0 Mean Corpusc ular Volume [place] ([facility]) hematocrit 33.9 % 36.0-47.0 Below low normal Hematocrit [place] ( [facility]) mean corpuscular hemoglobin 27.0 pg 27.0-33.0 Mean Cor puscular Hemoglobin [place] ([facility]) mean corpuscular HGB conc 31.3 g/dL 32.0-36.5 Below low marlon l Mean Corpuscular HGB Conc [place] ([facility]) red cell distribution width 14.1 % 11.5-14.5 Red Cell Distribution Width [place] ([facility]) nucleated red blood cell % 0.0 % 0-0 Nucleated Red Blood Cell % [place] ([facility]) platelet count, automated 132 10 150-450 Below low marlon l Platelet Count, Automated [place] ([facility]) ID Date Data Source [id number] 03/20/2021 09:34:00 AM EDT [place] ([facility]) Name Value Range Interpretation Code Description Data Romy rce(s) Supporting Document(s) glucose, fasting 127 mg/dL 70-100 Above high normal Glucose, Fas ting [place] ([facility]) blood urea nitrogen 14 mg/dL 7-18 Blood Urea Nitro gen [place] ([facility]) glomerular filtration rate > 60.0 >39 Glomerula r Filtration Rate [place] ([facility]) creatinine for GFR 0.76 mg/dL 0.55-1.30 Creatinine for GF R [place] ([facility]) sodium level 139 mEq/L 136-145 Sodium Level [place] (No [facility]) potassium serum 3.5 mEq/L 3.5-5.1 Potassium Serum [place] NA ([facility]) chloride level 107 mEq/L 98-107 Chloride Level [place] ([facility]) carbon dioxide level 27 mEq/L 21-32 Carbon Dioxide Level [place] ([facility]) anion gap 5 mEq/L 8-16 Below low normal Anion Gap [place] ( [facility]) calcium level 9.7 mg/dL 8.8-10.2 Calcium Level [place] ( [facility]) ID Date Data Source [id number] 03/20/2021 09:34:00 AM EDT [place] ([facility]) Name Value Range Interpretation Code Description Data Romy rce(s) Supporting Document(s) white blood count 3.7 10 4.0-10.0 Below low normal White Blood Count [place] ([facility]) red blood count 3.93 10 4.00-5.40 Below low normal Red Blood Coun t [place] ([facility]) hematocrit 33.9 % 36.0-47.0 Below low normal Hematocrit [place] ( [facility]) hemoglobin 10.6 g/dL 12.0-15.5 Below low normal Hemoglobin [place] ( [facility]) mean corpuscular volume 86.3 fL 80.0-96.0 Mean Corpusc ular Volume [place] ([facility]) mean corpuscular hemoglobin 27.0 pg 27.0-33.0 Mean Cor puscular Hemoglobin [place] ([facility]) mean corpuscular HGB conc 31.3 g/dL 32.0-36.5 Below low marlon l Mean Corpuscular HGB Conc [place] ([facility]) red cell distribution width 14.1 % 11.5-14.5 Red Cell Distribution Width [place] ([facility]) nucleated red blood cell % 0.0 % 0-0 Nucleated Red Blood Cell % [place] ([facility]) platelet count, automated 132 10 150-450 Below low marlon l Platelet Count, Automated [facility]) ID Date Data Source [id number] 02/24/2021 09:14:00 AM EDT [facility]) Name Value Range Interpretation Code Description Data Romy rce(s) Supporting Document(s) Hemoglobin A1c/Hemoglobin.total in Blood 7.2 %_of_total_HGB <5.7 Above high normal Hemoglobin a1C [place] ([facility]) ID Date Data Source [id number] 02/24/2021 09:14:00 AM EDT [place] ([facility]) Name Value Range Interpretation Code Description Data Romy rce(s) Supporting Document(s) Calcidiol [Mass/volume] in Serum or Plasma 29 NG/mL 30-100 Below low normal Vitamin D,25-Oh,total,ia [place] ([facility]) ID Date Data Source [id number] 02/24/2021 09:14:00 AM EDT [place] ([facility]) Name Value Range Interpretation Code Description Data Romy rce(s) Supporting Document(s) Cobalamin (Vitamin B12) [Mass/volume] in Serum or Plasma 1158 pg /mL 200-1100 Above high normal Vitamin B12 [place] ([facility]) Folate [Mass/volume] in Serum or Plasma 13.6 NG/mL Folate, Serum [place] ([facility]) ID Date Data Source [id number] 02/24/2021 09:14:00 AM EDT [place] ([facility]) Name Value Range Interpretation Code Description Data Romy rce(s) Supporting Document(s) Leukocytes [#/volume] in Blood by Automated count 3.8 thousand/uL 3 .8-10.8 White Blood Cell Count [place] ([facility]) Hematocrit [Volume Fraction] of Blood by Automated count 30.5 % 35.0-45.0 Below low normal Hematocrit [place] ([facility]) Erythrocyte mean corpuscular volume [Entitic volume] by Auto mated count 81.1 fL 80.0-100.0 Mcv [place] ([facility]) Erythrocytes [#/volume] in Blood by Automated count 3.76 million /uL 3.80-5.10 Below low normal Red Blood Cell Count [place] ([facility]) Erythrocyte mean corpuscular hemoglobin [Entitic mass] by Automated count 27.7 pg 27.0-33.0 Mch [place] ([facility]) Hemoglobin [Mass/volume] in Blood 10.4 g/dL 11.7-15.5 Below l ow normal Hemoglobin [place] ([facility]) Platelets [#/volume] in Blood by Automated count 158 thousand/uL 14 0-400 Platelet Count [place] ([facility]) Erythrocyte distribution width [Ratio] by Automated count 13.4 % 11.0-15.0 Rdw [place] ([facility]) Erythrocyte mean corpuscular hemoglobin concentration [Mass/volume] by Automated count 34.1 g/dL 32.0-36.0 Mchc [place] ([facility]) Platelet mean volume [Entitic volume] in Blood by Demetris 10.4 f L 7.5-12.5 Mpv [place] ([facility]) Monocytes [#/volume] in Blood by Automated count 369 cells/uL 200-9 50 Absolute Monocytes [place] ([facility]) Eosinophils [#/volume] in Blood by Automated count 407 cells/uL 15- 500 Absolute Eosinophils [place] ([facility]) Neutrophils [#/volume] in Blood by Automated count 1782 cells/uL 15 00-7800 Absolute Neutrophils [place] ([facility]) Lymphocytes [#/volume] in Blood by Automated count 1212 cells/uL 85 0-3900 Absolute Lymphocytes [place] ([facility]) Neutrophils/100 leukocytes in Blood by Automated count 46.9 % 38-80 Neutrophils [place] ([facility]) Basophils [#/volume] in Blood by Automated count 30 cells/uL 0-200 Absolute Basophils [place] ([facility]) Eosinophils/100 leukocytes in Blood by Automated count 10.7 % 0-8 Above high normal Eosinophils [place] ([facility]) Lymphocytes/100 leukocytes in Blood by Automated count 31.9 % 15-49 Lymphocytes [place] ([facility]) Monocytes/100 leukocytes in Blood by Automated count 9.7 % 0-13 Monocytes [place] ([facility]) Basophils/100 leukocytes in Blood by Automated count 0.8 % 0-2 Basophils [place] ([facility]) ID Date Data Source [id number] 02/24/2021 09:14:00 AM EDT [place] ([facility]) Name Value Range Interpretation Code Description Data Romy rce(s) Supporting Document(s) Glucose [Mass/volume] in Serum or Plasma 165 mg/dL 65-99 Above high normal Glucose [place] ([facility]) Urea nitrogen [Mass/volume] in Serum or Plasma 15 mg/dL 7-25 Urea Nitrogen (BUN) [place] ([facility]) Glomerular filtration rate/1.73 sq M.pre dicted among blacks [Volume Rate/Area] in Serum, Plasma or Blood by Creatinine-based formula (CKD-EPI) 100 mL/min/1.73m2 > or = 60 eGFR [place] (No [facility]) Glomerular filtration rate/1.73 sq M.pre dicted among non-blacks [Volume Rate/Area] in Serum, Plasma or Blood by Creatinine-based formula (CKD-EPI) 87 mL/min/1.73m2 > or = 60 eGFR Non-afr. [place] ([facility]) Creatinine [Mass/volume] in Serum or Plasma 0.64 mg/dL 0.60-0.93 Creatinine [place] ([facility]) Potassium [Moles/volume] in Serum or Plasma 4.0 mmol/L 3.5-5.3 Potassium [place] ([facility]) Chloride [Moles/volume] in Serum or Plasma 104 mmol/L 98-110 Chloride [place] ([facility]) Sodium [Moles/volume] in Serum or Plasma 137 mmol/L 135-146 Sodium [place] ([facility]) Urea nitrogen/Creatinine [Mass Ratio] in Serum or Plasma not applic able 6-22 BUN/creatinine Ratio [place] ([facility]) Protein [Mass/volume] in Serum or Plasma 7.8 g/dL 6.1-8.1 Protein, Total [place] ([facility]) Calcium [Mass/volume] in Serum or Plasma 9.2 mg/dL 8.6-10.4 [facility]cium [facility] Carbon dioxide, total [Moles/volume] in Serum or Plasma 26 mmol/L 20-32 Carbon Dioxide [place] ([facility]) Bilirubin.total [Mass/volume] in Serum or Plasma 0.4 mg/dL 0.2-1 .2 Bilirubin, Total [place] ([facility]) Albumin [Mass/volume] in Serum or Plasma 3.7 g/dL 3.6-5.1 Albumin [place] ([facility]) Albumin/Globulin [Mass Ratio] in Serum or Plasma 0.9 (calc) 1.0-2.5 Below low normal Albumin/globulin Ratio [place] ([facility]) Globulin [Mass/volume] in Serum by calculation 4.1 g/dL_(calc) 1 .9-3.7 Above high normal Globulin [place] ([facility]) Aspartate aminotransferase [Enzymatic activity/volume] in Serum or Plasma 13 U/L 10-35 Ast [place] ([facility]) Alkaline phosphatase [Enzymatic activity/volume] in Serum or Plasma 57 U/L 37-153 Alkaline Phosphatase [place] ([facility]) Alanine aminotransferase [Enzymatic activity/volume] in Seru m or Plasma 8 U/L 6-29 Alt [place] ([facility]) ID Date Data Source [id number] 02/24/2021 09:14:00 AM EDT [place] ([facility]) Name Value Range Interpretation Code Description Data Romy rce(s) Supporting Document(s) Thyrotropin [Units/volume] in Serum or Plasma 2.47 mIU/L 0.40-4.50 Tsh [place] ([facility]) Thyroxine (T4) free [Mass/volume] in Serum or Plasma 0.9 NG/dL 0 .8-1.8 T4, Free [place] ([facility]) ID Date Data Source [id number] 02/24/2021 09:14:00 AM EDT [place] ([facility]) Name Value Range Interpretation Code Description Data Romy rce(s) Supporting Document(s) Cholesterol [Mass/volume] in Serum or Plasma 147 mg/dL <200 Cholesterol, Total [place] ([facility]) Triglyceride [Mass/volume] in Serum or Plasma 90 mg/dL <150 Triglycerides [place] ([facility]) Cholesterol in LDL [Mass/volume] in Serum or Plasma by calculation 86 mg/dL_(calc) LDL-cholesterol [place] ([facility]) Cholesterol in HDL [Mass/volume] in Serum or Plasma 43 mg/dL > or = 50 Below low normal HDL Cholesterol [place] ([facility]) Cholesterol.total/Cholesterol in HDL [Mass Ratio] in Serum o r Plasma 3.4 (calc) <5.0 Chol/hdlc Ratio [place] ([facility]) Cholesterol non HDL [Mass/volume] in Serum or Plasma 104 mg/dL_(jovanna c) <130 Non HDL Cholesterol [place] ([facility]) ID Date Data Source [id number] 02/24/2021 09:14:00 AM EDT [place] ([facility]) Name Value Range Interpretation Code Description Data Romy rce(s) Supporting Document(s) Iron [Mass/volume] in Serum or Plasma 30 mcg/dL 45-160 Bel ow low normal Iron, Total [place] ([facility]) Iron binding capacity [Mass/volume] in Serum or Plasma 276 m cg/dL_(calc) 250-450 Iron Binding Capacity [place] ([facility]) Iron saturation [Mass Fraction] in Serum or Plasma 11 %_(calc) 16-45 Below low normal % Saturation [place] ([facility]) Ferritin [Mass/volume] in Serum or Plasma 104 NG/mL 16-288 Ferritin [place] ([facility]) ID Date Data Source [id number] 02/24/2021 09:14:00 AM EDT [place] ([facility]) Name Value Range Interpretation Code Description Data Romy rce(s) Supporting Document(s) Cobalamin (Vitamin B12) [Mass/volume] in Serum or Plasma 1158 pg /mL 200-1100 Above high normal Vitamin B12 [place] ([facility]) Folate [Mass/volume] in Serum or Plasma 13.6 NG/mL Folate, Serum [place] ([facility]) ID Date Data Source [id number] 02/24/2021 09:14:00 AM EDT [place] ([facility]) Name Value Range Interpretation Code Description Data Romy rce(s) Supporting Document(s) Leukocytes [#/volume] in Blood by Automated count 3.8 thousand/uL 3 .8-10.8 White Blood Cell Count [place] ([facility]) Erythrocytes [#/volume] in Blood by Automated count 3.76 million /uL 3.80-5.10 Below low normal Red Blood Cell Count [place] ([facility]) Hematocrit [Volume Fraction] of Blood by Automated count 30.5 % 35.0-45.0 Below low normal Hematocrit [place] ([facility]) Hemoglobin [Mass/volume] in Blood 10.4 g/dL 11.7-15.5 Below l ow normal Hemoglobin [place] ([facility]) Erythrocyte mean corpuscular hemoglobin [Entitic mass] by Automated count 27.7 pg 27.0-33.0 Mch [place] ([facility]) Erythrocyte mean corpuscular volume [Entitic volume] by Auto mated count 81.1 fL 80.0-100.0 Mcv [place] ([facility]) Erythrocyte distribution width [Ratio] by Automated count 13.4 % 11.0-15.0 Rdw [place] ([facility]) Erythrocyte mean corpuscular hemoglobin concentration [Mass/volume] by Automated count 34.1 g/dL 32.0-36.0 Mchc [place] ([facility]) Platelets [#/volume] in Blood by Automated count 158 thousand/uL 14 0-400 Platelet Count [place] ([facility]) Neutrophils [#/volume] in Blood by Automated count 1782 cells/uL 15 00-7800 Absolute Neutrophils [place] ([facility]) Platelet mean volume [Entitic volume] in Blood by Demetris 10.4 f L 7.5-12.5 Mpv [place] ([facility]) Monocytes [#/volume] in Blood by Automated count 369 cells/uL 200-9 50 Absolute Monocytes [place] ([facility]) Eosinophils [#/volume] in Blood by Automated count 407 cells/uL 15- 500 Absolute Eosinophils [place] ([facility]) Lymphocytes [#/volume] in Blood by Automated count 1212 cells/uL 85 0-3900 Absolute Lymphocytes [place] ([facility]) Neutrophils/100 leukocytes in Blood by Automated count 46.9 % 38-80 Neutrophils [place] ([facility]) Basophils [#/volume] in Blood by Automated count 30 cells/uL 0-200 Absolute Basophils [place] ([facility]) Monocytes/100 leukocytes in Blood by Automated count 9.7 % 0-13 Monocytes [place] ([facility]) Lymphocytes/100 leukocytes in Blood by Automated count 31.9 % 15-49 Lymphocytes [place] ([facility]) Eosinophils/100 leukocytes in Blood by Automated count 10.7 % 0-8 Above high normal Eosinophils [place] ([facility]) Basophils/100 leukocytes in Blood by Automated count 0.8 % 0-2 Basophils [place] ([facility]) ID Date Data Source [id number] 02/24/2021 09:14:00 AM EDT [facility]) Name Value Range Interpretation Code Description Data Romy rce(s) Supporting Document(s) Urea nitrogen [Mass/volume] in Serum or Plasma 15 mg/dL 7-25 Urea Nitrogen (BUN) [place] ([facility]) Glucose [Mass/volume] in Serum or Plasma 165 mg/dL 65-99 Above high normal Glucose [place] ([facility]) Glomerular filtration rate/1.73 sq M.pre dicted among non-blacks [Volume Rate/Area] in Serum, Plasma or Blood by Creatinine-based formula (CKD-EPI) 87 mL/min/1.73m2 > or = 60 eGFR Non-afr. [place] ([facility]) Creatinine [Mass/volume] in Serum or Plasma 0.64 mg/dL 0.60-0.93 Creatinine [place] ([facility]) Glomerular filtration rate/1.73 sq M.pre dicted among blacks [Volume Rate/Area] in Serum, Plasma or Blood by Creatinine-based formula (CKD-EPI) 100 mL/min/1.73m2 > or = 60 eGFR [place] ([facility]) Urea nitrogen/Creatinine [Mass Ratio] in Serum or Plasma not applic able 6-22 BUN/creatinine Ratio [place] ([facility]) Sodium [Moles/volume] in Serum or Plasma 137 mmol/L 135-146 Sodium [place] ([facility]) Potassium [Moles/volume] in Serum or Plasma 4.0 mmol/L 3.5-5.3 Potassium [place] ([facility]) Chloride [Moles/volume] in Serum or Plasma 104 mmol/L 98-110 Chloride [place] ([facility]) Calcium [Mass/volume] in Serum or Plasma 9.2 mg/dL 8.6-10.4 Calcium [place] ([facility]) Protein [Mass/volume] in Serum or Plasma 7.8 g/dL 6.1-8.1 Protein, Total [place] ([facility]) Carbon dioxide, total [Moles/volume] in Serum or Plasma 26 mmol/L 20-32 Carbon Dioxide [place] ([facility]) Globulin [Mass/volume] in Serum by calculation 4.1 g/dL_(calc) 1 .9-3.7 Above high normal Globulin [place] ([facility]) Albumin [Mass/volume] in Serum or Plasma 3.7 g/dL 3.6-5.1 Albumin [place] ([facility]) Alkaline phosphatase [Enzymatic activity/volume] in Serum or Plasma 57 U/L 37-153 Alkaline Phosphatase [place] ([facility]) Albumin/Globulin [Mass Ratio] in Serum or Plasma 0.9 (calc) 1.0-2.5 Below low normal Albumin/globulin Ratio [place] ([facility]) Bilirubin.total [Mass/volume] in Serum or Plasma 0.4 mg/dL 0.2-1 .2 Bilirubin, Total [place] ([facility]) Aspartate aminotransferase [Enzymatic activity/volume] in Serum or Plasma 13 U/L 10-35 Ast [place] ([facility]) Alanine aminotransferase [Enzymatic activity/volume] in Seru m or Plasma 8 U/L 6-29 Alt [place] ([facility]) ID Date Data Source [id number] 02/24/2021 09:14:00 AM EDT [place] ([facility]) Name Value Range Interpretation Code Description Data Romy rce(s) Supporting Document(s) Thyrotropin [Units/volume] in Serum or Plasma 2.47 mIU/L 0.40-4.50 Tsh [place] ([facility]) Thyroxine (T4) free [Mass/volume] in Serum or Plasma 0.9 NG/dL 0 .8-1.8 T4, Free [place] ([facility]) ID Date Data Source [id number] 02/24/2021 09:14:00 AM EDT [place] ([facility]) Name Value Range Interpretation Code Description Data Romy rce(s) Supporting Document(s) Cholesterol [Mass/volume] in Serum or Plasma 147 mg/dL <200 Cholesterol, Total [place] ([facility]) Cholesterol in HDL [Mass/volume] in Serum or Plasma 43 mg/dL > or = 50 Below low normal HDL Cholesterol [place] ([facility]) Triglyceride [Mass/volume] in Serum or Plasma 90 mg/dL <150 Triglycerides [place] ([facility]) Cholesterol in LDL [Mass/volume] in Serum or Plasma by calculation 86 mg/dL_(calc) LDL-cholesterol [place] ([facility]) Cholesterol.total/Cholesterol in HDL [Mass Ratio] in Serum o r Plasma 3.4 (calc) <5.0 Chol/hdlc Ratio [place] ([facility]) Cholesterol non HDL [Mass/volume] in Serum or Plasma 104 mg/dL_(jovanna c) <130 Non HDL Cholesterol [place] ([facility]) ID Date Data Source [id number] 02/24/2021 09:14:00 AM EDT [place] ([facility]) Name Value Range Interpretation Code Description Data Romy rce(s) Supporting Document(s) Iron [Mass/volume] in Serum or Plasma 30 mcg/dL 45-160 [place] ow low normal Iron, Total [place] ([facility]) Iron binding capacity [Mass/volume] in Serum or Plasma 276 m cg/dL_(calc) 250-450 Iron Binding Capacity [place] ([facility]) Iron saturation [Mass Fraction] in Serum or Plasma 11 %_(calc) 16-45 Below low normal % Saturation [place] ([facility]) Ferritin [Mass/volume] in Serum or Plasma 104 NG/mL 16-288 Ferritin [place] ([facility]) ID Date Data Source [id number] 02/24/2021 09:14:00 AM EDT [place] ([facility]) Name Value Range Interpretation Code Description Data Romy rce(s) Supporting Document(s) Hemoglobin A1c/Hemoglobin.total in Blood 7.2 %_of_total_HGB <5.7 Above high normal Hemoglobin a1C [place] ([facility]) ID Date Data Source [id number] 02/24/2021 09:14:00 AM EDT [place] ([facility]) Name Value Range Interpretation Code Description Data Romy rce(s) Supporting Document(s) Calcidiol [Mass/volume] in Serum or Plasma 29 NG/mL 30-100 Below low normal Vitamin D,25-Oh,total,ia [place] ([facility]) ID Date Data Source [id number] 02/24/2021 09:14:00 AM EDT [place] ([facility]) Name Value Range Interpretation Code Description Data Romy rce(s) Supporting Document(s) Cobalamin (Vitamin B12) [Mass/volume] in Serum or Plasma 1158 pg /mL 200-1100 Above high normal Vitamin B12 [place] ([facility]) Folate [Mass/volume] in Serum or Plasma 13.6 NG/mL Folate, Serum [place] ([facility]) ID Date Data Source [id number] 02/24/2021 09:14:00 AM EDT [facility]) Name Value Range Interpretation Code Description Data Romy rce(s) Supporting Document(s) Leukocytes [#/volume] in Blood by Automated count 3.8 thousand/uL 3 .8-10.8 White Blood Cell Count [place] ([facility]) Hematocrit [Volume Fraction] of Blood by Automated count 30.5 % 35.0-45.0 Below low normal Hematocrit [place] ([facility]) Hemoglobin [Mass/volume] in Blood 10.4 g/dL 11.7-15.5 Below l ow normal Hemoglobin [place] ([facility]) Erythrocytes [#/volume] in Blood by Automated count 3.76 million /uL 3.80-5.10 Below low normal Red Blood Cell Count [place] ([facility]) Erythrocyte mean corpuscular hemoglobin [Entitic mass] by Automated count 27.7 pg 27.0-33.0 Mch [place] ([facility]) Erythrocyte mean corpuscular hemoglobin concentration [Mass/volume] by Automated count 34.1 g/dL 32.0-36.0 Mchc [place] ([facility]) Erythrocyte mean corpuscular volume [Entitic volume] by Auto mated count 81.1 fL 80.0-100.0 Mcv [place] ([facility]) Erythrocyte distribution width [Ratio] by Automated count 13.4 % 11.0-15.0 Rdw [place] ([facility]) Platelet mean volume [Entitic volume] in Blood by Demetris 10.4 f L 7.5-12.5 Mpv [place] ([facility]) Platelets [#/volume] in Blood by Automated count 158 thousand/uL 14 0-400 Platelet Count [place] ([facility]) Neutrophils [#/volume] in Blood by Automated count 1782 cells/uL 15 00-7800 Absolute Neutrophils [place] ([facility]) Lymphocytes [#/volume] in Blood by Automated count 1212 cells/uL 85 0-3900 Absolute Lymphocytes [place] ([facility]) Eosinophils [#/volume] in Blood by Automated count 407 cells/uL 15- 500 Absolute Eosinophils [place] ([facility]) Monocytes [#/volume] in Blood by Automated count 369 cells/uL 200-9 50 Absolute Monocytes [place] ([facility]) Neutrophils/100 leukocytes in Blood by Automated count 46.9 % 38-80 Neutrophils [place] ([facility]) Basophils [#/volume] in Blood by Automated count 30 cells/uL 0-200 Absolute Basophils [place] ([facility]) Lymphocytes/100 leukocytes in Blood by Automated count 31.9 % 15-49 Lymphocytes [place] ([facility]) Eosinophils/100 leukocytes in Blood by Automated count 10.7 % 0-8 Above high normal Eosinophils [place] ([facility]) Monocytes/100 leukocytes in Blood by Automated count 9.7 % 0-13 Monocytes [place] ([facility]) Basophils/100 leukocytes in Blood by Automated count 0.8 % 0-2 Basophils [place] ([facility]) ID Date Data Source [id number] 02/24/2021 09:14:00 AM EDT [facility]) Name Value Range Interpretation Code Description Data Romy rce(s) Supporting Document(s) Glucose [Mass/volume] in Serum or Plasma 165 mg/dL 65-99 Above high normal Glucose [place] ([facility]) Creatinine [Mass/volume] in Serum or Plasma 0.64 mg/dL 0.60-0.93 Creatinine [place] ([facility]) Urea nitrogen [Mass/volume] in Serum or Plasma 15 mg/dL 7-25 [facility]UN) [facility] Glomerular filtration rate/1.73 sq M.pre dicted among non-blacks [Volume Rate/Area] in Serum, Plasma or Blood by Creatinine-based formula (CKD-EPI) 87 mL/min/1.73m2 > or = 60 eGFR Non-afr. [place] ([facility]) Urea nitrogen/Creatinine [Mass Ratio] in Serum or Plasma not applic able 6-22 BUN/creatinine Ratio [place] ([facility]) Glomerular filtration rate/1.73 sq M.pre dicted among blacks [Volume Rate/Area] in Serum, Plasma or Blood by Creatinine-based formula (CKD-EPI) 100 mL/min/1.73m2 > or = 60 eGFR [place] ([facility]) Chloride [Moles/volume] in Serum or Plasma 104 mmol/L 98-110 Chloride [place] ([facility]) Sodium [Moles/volume] in Serum or Plasma 137 mmol/L 135-146 Sodium [place] ([facility]) Potassium [Moles/volume] in Serum or Plasma 4.0 mmol/L 3.5-5.3 Potassium [place] ([facility]) Carbon dioxide, total [Moles/volume] in Serum or Plasma 26 mmol/L 20-32 Carbon Dioxide [place] ([facility]) Protein [Mass/volume] in Serum or Plasma 7.8 g/dL 6.1-8.1 Protein, Total [place] ([facility]) Calcium [Mass/volume] in Serum or Plasma 9.2 mg/dL 8.6-10.4 Calcium [place] ([facility]) Albumin/Globulin [Mass Ratio] in Serum or Plasma 0.9 (calc) 1.0-2.5 Below low normal Albumin/globulin Ratio [place] ([facility]) Globulin [Mass/volume] in Serum by calculation 4.1 g/dL_(calc) 1 .9-3.7 Above high normal Globulin [place] ([facility]) Albumin [Mass/volume] in Serum or Plasma 3.7 g/dL 3.6-5.1 Albumin [place] ([facility]) Bilirubin.total [Mass/volume] in Serum or Plasma 0.4 mg/dL 0.2-1 .2 Bilirubin, Total [place] ([facility]) Alkaline phosphatase [Enzymatic activity/volume] in Serum or Plasma 57 U/L 37-153 Alkaline Phosphatase [place] ([facility]) Aspartate aminotransferase [Enzymatic activity/volume] in Serum or Plasma 13 U/L 10-35 Ast [place] ([facility]) Alanine aminotransferase [Enzymatic activity/volume] in Seru m or Plasma 8 U/L 6-29 Alt [place] ([facility]) ID Date Data Source [id number] 02/24/2021 09:14:00 AM EDT [place] ([facility]) Name Value Range Interpretation Code Description Data Romy rce(s) Supporting Document(s) Thyrotropin [Units/volume] in Serum or Plasma 2.47 mIU/L 0.40-4.50 Tsh [place] ([facility]) Thyroxine (T4) free [Mass/volume] in Serum or Plasma 0.9 NG/dL 0 .8-1.8 T4, Free [place] ([facility]) ID Date Data Source [id number] 02/24/2021 09:14:00 AM EDT [place] ([facility]) Name Value Range Interpretation Code Description Data Romy rce(s) Supporting Document(s) Cholesterol in HDL [Mass/volume] in Serum or Plasma 43 mg/dL > or = 50 Below low normal HDL Cholesterol [place] ([facility]) Triglyceride [Mass/volume] in Serum or Plasma 90 mg/dL <150 Triglycerides [place] ([facility]) Cholesterol [Mass/volume] in Serum or Plasma 147 mg/dL <200 Cholesterol, Total [place] ([facility]) Cholesterol.total/Cholesterol in HDL [Mass Ratio] in Serum o r Plasma 3.4 (calc) <5.0 Chol/hdlc Ratio [place] ([facility]) Cholesterol in LDL [Mass/volume] in Serum or Plasma by calculation 86 mg/dL_(calc) LDL-cholesterol [place] ([facility]) Cholesterol non HDL [Mass/volume] in Serum or Plasma 104 mg/dL_(jovanna c) <130 Non HDL Cholesterol [place] ([facility]) ID Date Data Source [id number] 02/24/2021 09:14:00 AM EDT [place] ([facility]) Name Value Range Interpretation Code Description Data Romy rce(s) Supporting Document(s) Iron [Mass/volume] in Serum or Plasma 30 mcg/dL 45-160 [place] low normal Iron, Total [place] ([facility]) Iron saturation [Mass Fraction] in Serum or Plasma 11 %_(calc) 16-45 Below low normal % Saturation [place] ([facility]) Iron binding capacity [Mass/volume] in Serum or Plasma 276 m cg/dL_(calc) 250-450 Iron Binding Capacity [place] ([facility]) Ferritin [Mass/volume] in Serum or Plasma 104 NG/mL 16-288 Ferritin [place] ([facility]) ID Date Data Source [id number] 02/24/2021 09:14:00 AM EDT [place] ([facility]) Name Value Range Interpretation Code Description Data Romy rce(s) Supporting Document(s) Hemoglobin A1c/Hemoglobin.total in Blood 7.2 %_of_total_HGB <5.7 Above high normal Hemoglobin a1C [place] ([facility]) ID Date Data Source [id number] 02/24/2021 09:14:00 AM EDT [place] ([facility]) Name Value Range Interpretation Code Description Data Romy rce(s) Supporting Document(s) Calcidiol [Mass/volume] in Serum or Plasma 29 NG/mL 30-100 Below low normal Vitamin D,25-Oh,total,ia [facility]) ID Date Data Source [id number] 02/24/2021 09:14:00 AM EDT [place] ([facility]) Name Value Range Interpretation Code Description Data Romy rce(s) Supporting Document(s) Cobalamin (Vitamin B12) [Mass/volume] in Serum or Plasma 1158 pg /mL 200-1100 Above high normal Vitamin B12 [place] ([facility]) Folate [Mass/volume] in Serum or Plasma 13.6 NG/mL Folate, Serum [place] ([facility]) ID Date Data Source [id number] 02/24/2021 09:14:00 AM EDT [place] ([facility]) Name Value Range Interpretation Code Description Data Romy rce(s) Supporting Document(s) Erythrocytes [#/volume] in Blood by Automated count 3.76 million /uL 3.80-5.10 Below low normal Red Blood Cell Count [place] ([facility]) Leukocytes [#/volume] in Blood by Automated count 3.8 thousand/uL 3 .8-10.8 White Blood Cell Count [place] ([facility]) Hemoglobin [Mass/volume] in Blood 10.4 g/dL 11.7-15.5 Below l ow normal Hemoglobin [place] ([facility]) Hematocrit [Volume Fraction] of Blood by Automated count 30.5 % 35.0-45.0 Below low normal Hematocrit [place] ([facility]) Erythrocyte mean corpuscular volume [Entitic volume] by Auto mated count 81.1 fL 80.0-100.0 Mcv [place] ([facility]) Erythrocyte mean corpuscular hemoglobin [Entitic mass] by Automated count 27.7 pg 27.0-33.0 Mch [place] ([facility]) Erythrocyte mean corpuscular hemoglobin concentration [Mass/volume] by Automated count 34.1 g/dL 32.0-36.0 Mchc [place] ([facility]) Platelets [#/volume] in Blood by Automated count 158 thousand/uL 14 0-400 Platelet Count [place] ([facility]) Platelet mean volume [Entitic volume] in Blood by Demetris 10.4 f L 7.5-12.5 Mpv [place] ([facility]) Erythrocyte distribution width [Ratio] by Automated count 13.4 % 11.0-15.0 Rdw [place] ([facility]) Monocytes [#/volume] in Blood by Automated count 369 cells/uL 200-9 50 Absolute Monocytes [place] ([facility]) Lymphocytes [#/volume] in Blood by Automated count 1212 cells/uL 85 0-3900 Absolute Lymphocytes [place] ([facility]) Neutrophils [#/volume] in Blood by Automated count 1782 cells/uL 15 00-7800 Absolute Neutrophils [place] ([facility]) Basophils [#/volume] in Blood by Automated count 30 cells/uL 0-200 Absolute Basophils [place] ([facility]) Neutrophils/100 leukocytes in Blood by Automated count 46.9 % 38-80 Neutrophils [place] ([facility]) Eosinophils [#/volume] in Blood by Automated count 407 cells/uL 15- 500 Absolute Eosinophils [place] ([facility]) Lymphocytes/100 leukocytes in Blood by Automated count 31.9 % 15-49 Lymphocytes [place] ([facility]) Basophils/100 leukocytes in Blood by Automated count 0.8 % 0-2 Basophils [place] ([facility]) Monocytes/100 leukocytes in Blood by Automated count 9.7 % 0-13 Monocytes [place] ([facility]) Eosinophils/100 leukocytes in Blood by Automated count 10.7 % 0-8 Above high normal Eosinophils [place] ([facility]) ID Date Data Source [id number] 02/24/2021 09:14:00 AM EDT [place] ([facility]) Name Value Range Interpretation Code Description Data Romy rce(s) Supporting Document(s) Glucose [Mass/volume] in Serum or Plasma 165 mg/dL 65-99 Above high normal Glucose [place] ([facility]) Urea nitrogen [Mass/volume] in Serum or Plasma 15 mg/dL 7-25 Urea Nitrogen (BUN) [place] ([facility]) Glomerular filtration rate/1.73 sq M.pre dicted among non-blacks [Volume Rate/Area] in Serum, Plasma or Blood by Creatinine-based formula (CKD-EPI) 87 mL/min/1.73m2 > or = 60 eGFR Non-afr. [place] ([facility]) Creatinine [Mass/volume] in Serum or Plasma 0.64 mg/dL 0.60-0.93 Creatinine [place] ([facility]) Glomerular filtration rate/1.73 sq M.pre dicted among blacks [Volume Rate/Area] in Serum, Plasma or Blood by Creatinine-based formula (CKD-EPI) 100 mL/min/1.73m2 > or = 60 eGFR [place] (No [facility]) Urea nitrogen/Creatinine [Mass Ratio] in Serum or Plasma not applic able 6-22 BUN/creatinine Ratio [place] ([facility]) Sodium [Moles/volume] in Serum or Plasma 137 mmol/L 135-146 Sodium [place] ([facility]) Potassium [Moles/volume] in Serum or Plasma 4.0 mmol/L 3.5-5.3 Potassium [place] ([facility]) Chloride [Moles/volume] in Serum or Plasma 104 mmol/L 98-110 Chloride [place] ([facility]) Carbon dioxide, total [Moles/volume] in Serum or Plasma 26 mmol/L 20-32 Carbon Dioxide [place] ([facility]) Albumin [Mass/volume] in Serum or Plasma 3.7 g/dL 3.6-5.1 Albumin [place] ([facility]) Calcium [Mass/volume] in Serum or Plasma 9.2 mg/dL 8.6-10.4 Calcium [place] ([facility]) Globulin [Mass/volume] in Serum by calculation 4.1 g/dL_(calc) 1 .9-3.7 Above high normal Globulin [place] ([facility]) Protein [Mass/volume] in Serum or Plasma 7.8 g/dL 6.1-8.1 Protein, Total [place] ([facility]) Albumin/Globulin [Mass Ratio] in Serum or Plasma 0.9 (calc) 1.0-2.5 Below low normal Albumin/globulin Ratio [place] ([facility]) Bilirubin.total [Mass/volume] in Serum or Plasma 0.4 mg/dL 0.2-1 .2 Bilirubin, Total [place] ([facility]) Aspartate aminotransferase [Enzymatic activity/volume] in Serum or Plasma 13 U/L 10-35 Ast [place] ([facility]) Alkaline phosphatase [Enzymatic activity/volume] in Serum or Plasma 57 U/L 37-153 Alkaline Phosphatase [place] ([facility]) Alanine aminotransferase [Enzymatic activity/volume] in Seru m or Plasma 8 U/L 6-29 Alt [place] ([facility]) ID Date Data Source [id number] 02/24/2021 09:14:00 AM EDT [place] ([facility]) Name Value Range Interpretation Code Description Data Romy rce(s) Supporting Document(s) Thyrotropin [Units/volume] in Serum or Plasma 2.47 mIU/L 0.40-4.50 Tsh [place] ([facility]) Thyroxine (T4) free [Mass/volume] in Serum or Plasma 0.9 NG/dL 0 .8-1.8 T4, Free [place] ([facility]) ID Date Data Source [id number] 02/24/2021 09:14:00 AM EDT [place] ([facility]) Name Value Range Interpretation Code Description Data Romy rce(s) Supporting Document(s) Cholesterol [Mass/volume] in Serum or Plasma 147 mg/dL <200 Cholesterol, Total [place] ([facility]) Triglyceride [Mass/volume] in Serum or Plasma 90 mg/dL <150 Triglycerides [place] ([facility]) Cholesterol in HDL [Mass/volume] in Serum or Plasma 43 mg/dL > or = 50 Below low normal HDL Cholesterol [place] ([facility]) Cholesterol in LDL [Mass/volume] in Serum or Plasma by calculation 86 mg/dL_(calc) LDL-cholesterol [place] ([facility]) Cholesterol non HDL [Mass/volume] in Serum or Plasma 104 mg/dL_(jovanna c) <130 Non HDL Cholesterol [place] ([facility]) Cholesterol.total/Cholesterol in HDL [Mass Ratio] in Serum o r Plasma 3.4 (calc) <5.0 Chol/hdlc Ratio [place] ([facility]) ID Date Data Source [id number] 02/24/2021 09:14:00 AM EDT [facility] Name Value Range Interpretation Code Description Data Romy rce(s) Supporting Document(s) Iron [Mass/volume] in Serum or Plasma 30 mcg/dL 45-160 [place] ow low normal Iron, Total [place] ([facility]) Iron binding capacity [Mass/volume] in Serum or Plasma 276 m cg/dL_(calc) 250-450 Iron Binding Capacity [place] ([facility]) Iron saturation [Mass Fraction] in Serum or Plasma 11 %_(calc) 16-45 Below low normal % Saturation [place] ([facility]) Ferritin [Mass/volume] in Serum or Plasma 104 NG/mL 16-288 Ferritin [place] ([facility]) ID Date Data Source [id number] 02/24/2021 09:14:00 AM EDT [facility]) Name Value Range Interpretation Code Description Data Romy rce(s) Supporting Document(s) Hemoglobin A1c/Hemoglobin.total in Blood 7.2 %_of_total_HGB <5.7 Above high normal Hemoglobin a1C [place] ([facility]) ID Date Data Source [id number] 02/24/2021 09:14:00 AM EDT [place] ([facility]) Name Value Range Interpretation Code Description Data Romy rce(s) Supporting Document(s) Calcidiol [Mass/volume] in Serum or Plasma 29 NG/mL 30-100 Below low normal Vitamin D,25-Oh,total,ia [place] ([facility]) ID Date Data Source [id number] 02/24/2021 09:14:00 AM EDT [facility]) Name Value Range Interpretation Code Description Data Romy rce(s) Supporting Document(s) Cholesterol [Mass/volume] in Serum or Plasma 147 mg/dL <200 Cholesterol, Total [place] ([facility]) Triglyceride [Mass/volume] in Serum or Plasma 90 mg/dL <150 Triglycerides [place] ([facility]) Cholesterol in HDL [Mass/volume] in Serum or Plasma 43 mg/dL > or = 50 Below low normal HDL Cholesterol [place] ([facility]) Cholesterol.total/Cholesterol in HDL [Mass Ratio] in Serum o r Plasma 3.4 (calc) <5.0 Chol/hdlc Ratio [place] ([facility]) Cholesterol in LDL [Mass/volume] in Serum or Plasma by calculation 86 mg/dL_(calc) LDL-cholesterol [place] ([facility]) Cholesterol non HDL [Mass/volume] in Serum or Plasma 104 mg/dL_(jovanna c) <130 Non HDL Cholesterol [place] ([facility]) ID Date Data Source [id number] 02/16/2021 03:11:00 PM EDT [facility]) Name Value Range Interpretation Code Description Data Romy rce(s) Supporting Document(s) Hemoglobin A1c/Hemoglobin.total in Blood 7.6 % Abnormal (applies to non- numeric results) Hba1C [place] ([facility]) ID Date Data Source [id number] 02/16/2021 03:11:00 PM EDT [facility]) Name Value Range Interpretation Code Description Data Romy rce(s) Supporting Document(s) Hemoglobin A1c/Hemoglobin.total in Blood 7.6 % Abnormal (applies to non- numeric results) Hba1C [place] ([facility]) ID Date Data Source [id number] 02/16/2021 03:11:00 PM EDT [facility]) Name Value Range Interpretation Code Description Data Romy rce(s) Supporting Document(s) Hemoglobin A1c/Hemoglobin.total in Blood 7.6 % Abnormal (applies to non- numeric results) Hba1C [place] ([facility]) ID Date Data Source [id number] 02/16/2021 03:11:00 PM EDT [facility]) Name Value Range Interpretation Code Description Data Romy rce(s) Supporting Document(s) Hemoglobin A1c/Hemoglobin.total in Blood 7.6 % Abnormal (applies to non- numeric results) Hba1C [place] ([facility]) ID Date Data Source [id number] 02/16/2021 03:11:00 PM EDT [facility]) Name Value Range Interpretation Code Description Data Romy rce(s) Supporting Document(s) Hemoglobin A1c/Hemoglobin.total in Blood 7.6 % Abnormal (applies to non- numeric results) Hba1C [place] ([facility]) ID Date Data Source [id number] 02/16/2021 03:11:00 PM EDT [facility]) Name Value Range Interpretation Code Description Data Romy rce(s) Supporting Document(s) Hemoglobin A1c/Hemoglobin.total in Blood 7.6 % Abnormal (applies to non- numeric results) Hba1C [place] ([facility]) Procedure Social History Code Duration Value Status Description Data Source(s ) Smoking 07/26/2021 12:00:00 AM EST Never Smoker completed Never S moker eCW1 ([facility]) Smoking 07/26/2021 12:00:00 AM EST Never Smoker completed Never S moker eCW1 ([facility]) Smoking 07/26/2021 12:00:00 AM EST Never Smoker completed Never S moker eCW1 ([facility]) Smoking 07/20/2021 12:00:00 AM EST Never Smoker completed Never S moker eCW1 ([facility]) Smoking 07/13/2021 12:00:00 AM EST Never Smoker completed Never S moker eCW1 ([facility]) Smoking 06/30/2021 12:00:00 AM EDT Never Smoker completed Never S moker eCW1 ([facility]) Smoking 06/30/2021 12:00:00 AM EDT Never Smoker completed Never S moker eCW1 ([facility]) Smoking 06/23/2021 12:00:00 AM EDT Never Smoker completed Never S moker eCW1 ([facility]) Smoking 06/23/2021 12:00:00 AM EDT Never Smoker completed Never S moker eCW1 ([facility]) Smoking 06/09/2021 12:00:00 AM EDT Never Smoker completed Never S moker eCW1 ([facility]) Smoking 05/26/2021 12:00:00 AM EDT Never Smoker completed Never S moker eCW1 ([facility]) Smoking 05/19/2021 12:00:00 AM EDT Never Smoker completed Never S moker eCW1 ([facility]) Smoking 05/12/2021 12:00:00 AM EDT Never Smoker completed Never S moker eCW1 ([facility]) Smoking 05/12/2021 12:00:00 AM EDT Never Smoker completed Never S moker eCW1 ([facility]) Smoking 04/21/2021 12:00:00 AM EDT Never Smoker completed Never S moker eCW1 ([facility]) Smoking 04/21/2021 12:00:00 AM EDT Never Smoker completed Never S moker eCW1 ([facility]) Smoking 04/21/2021 12:00:00 AM EDT Never Smoker completed Never S moker eCW1 ([facility]) Smoking 04/14/2021 12:00:00 AM EDT Never Smoker completed Never S moker eCW1 ([facility]) Smoking 04/14/2021 12:00:00 AM EDT Never Smoker completed Never S moker eCW1 ([facility]) Smoking 04/07/2021 12:00:00 AM EDT Never Smoker completed Never S moker eCW1 ([facility]) Smoking 03/31/2021 12:00:00 AM EDT Never Smoker completed Never S moker eCW1 ([facility]) Smoking 03/17/2021 12:00:00 AM EDT Never Smoker completed Never S moker eCW1 ([facility]) Smoking 03/17/2021 12:00:00 AM EDT Never Smoker completed Never S moker eCW1 ([facility]) Smoking 03/17/2021 12:00:00 AM EDT Never Smoker completed Never S moker eCW1 ([facility]) Smoking 03/10/2021 12:00:00 AM EDT Never Smoker completed Never S moker eCW1 ([facility]) Smoking 02/24/2021 12:00:00 AM EDT Never Smoker completed Never S moker eCW1 ([facility]) Smoking 02/24/2021 12:00:00 AM EDT Never Smoker completed Never S moker eCW1 ([facility]) Smoking 01/27/2021 12:00:00 AM EDT Never Smoker completed Never S moker eCW1 ([facility]) Smoking 01/27/2021 12:00:00 AM EDT Never Smoker completed Never S moker eCW1 ([facility]) Smoking 01/19/2021 12:00:00 AM EDT Never Smoker completed Never S moker eCW1 ([facility]) Smoking 01/12/2021 12:00:00 AM EDT Never Smoker completed Never S moker eCW1 ([facility]) Smoking 01/12/2021 12:00:00 AM EDT Never Smoker completed Never S moker eCW1 ([facility]) Smoking 12/29/2020 12:00:00 AM EDT Never Smoker completed Never S moker eCW1 ([facility]) Smoking 12/23/2020 12:00:00 AM EDT Never Smoker completed Never S moker eCW1 ([facility]) Smoking 12/09/2020 12:00:00 AM EDT Never Smoker completed Never S moker eCW1 ([facility]) Smoking 12/02/2020 12:00:00 AM EDT Never Smoker completed Never S moker eCW1 ([facility]) Smoking 11/23/2020 12:00:00 AM EDT Never Smoker completed Never S moker eCW1 ([facility]) Smoking 11/23/2020 12:00:00 AM EDT Never Smoker completed Never S moker eCW1 ([facility]) Smoking 11/16/2020 12:00:00 AM EDT Never Smoker completed Never S moker eCW1 ([facility]) Smoking 11/16/2020 12:00:00 AM EDT Never Smoker completed Never S moker eCW1 ([facility]) Smoking 11/01/2020 12:00:00 AM EST Never Smoker completed Never S moker eCW1 ([facility]) Smoking 10/17/2020 12:00:00 AM EST Never Smoker completed Never S moker eCW1 ([facility]) Smoking 10/17/2020 12:00:00 AM EST Never Smoker completed Never S moker eCW1 ([facility]) Smoking 10/17/2020 12:00:00 AM EST Never Smoker completed Never S moker eCW1 ([facility]) Smoking 10/17/2020 12:00:00 AM EST Never Smoker completed Never S moker eCW1 ([facility]) Smoking 10/07/2020 12:00:00 AM EST Never Smoker completed Never S moker eCW1 ([facility]) Smoking 10/07/2020 12:00:00 AM EST Never Smoker completed Never S moker eCW1 ([facility]) Smoking 09/30/2020 12:00:00 AM EST Never Smoker completed Never S moker eCW1 ([facility]) Smoking 09/23/2020 12:00:00 AM EST Never Smoker completed Never S moker eCW1 ([facility]) Smoking 09/14/2020 12:00:00 AM EST Never Smoker completed Never S moker eCW1 ([facility]) Smoking 08/24/2020 12:00:00 AM EST Never Smoker completed Never S moker eCW1 ([facility]) Smoking 08/24/2020 12:00:00 AM EST Never Smoker completed Never S moker eCW1 ([facility]) Smoking 08/17/2020 12:00:00 AM EST Never Smoker completed Never S moker eCW1 ([facility]) Smoking 08/17/2020 12:00:00 AM EST Never Smoker completed Never S moker eCW1 ([facility]) Smoking 08/11/2020 12:00:00 AM EST Never Smoker completed Never S moker eCW1 ([facility]) Smoking 08/11/2020 12:00:00 AM EST Never Smoker completed Never S moker eCW1 ([facility]) Smoking 08/03/2020 12:00:00 AM EST Never Smoker completed Never S moker eCW1 ([facility]) Smoking 08/03/2020 12:00:00 AM EST Never Smoker completed Never S moker eCW1 ([facility]) Smoking 08/03/2020 12:00:00 AM EST Never Smoker completed Never S moker eCW1 ([facility]) Smoking 08/03/2020 12:00:00 AM EST Never Smoker completed Never S moker eCW1 ([facility]) Smoking 07/15/2020 12:00:00 AM EST Never Smoker completed Never S moker eCW1 ([facility]) Smoking 07/15/2020 12:00:00 AM EST Never Smoker completed Never S moker eCW1 ([facility]) Smoking 07/08/2020 12:00:00 AM EST Never Smoker completed Never S moker eCW1 ([facility]) Smoking 07/08/2020 12:00:00 AM EST Never Smoker completed Never S moker eCW1 ([facility]) Smoking 07/01/2020 12:00:00 AM EDT Never Smoker completed Never S moker eCW1 ([facility]) Smoking 07/01/2020 12:00:00 AM EDT Never Smoker completed Never S moker eCW1 ([facility]) Smoking 06/28/2020 12:00:00 AM EDT Never Smoker completed Never S moker eCW1 ([facility]) Smoking 06/28/2020 12:00:00 AM EDT Never Smoker completed Never S moker eCW1 ([facility]) Smoking 06/24/2020 12:00:00 AM EDT Never Smoker completed Never S moker eCW1 ([facility]) Smoking 06/24/2020 12:00:00 AM EDT Never Smoker completed Never S moker eCW1 ([facility]) Smoking 06/24/2020 12:00:00 AM EDT Never Smoker completed Never S moker eCW1 ([facility]) Vital Signs ID Date Data Source [id number] Name Value Range Interpretation Code Description Data Source(s) Body weight 50.35 kg 50.35 kg eCW1 ([facility]) Body weight 111 [lb_av] 111 [lb_av] eCW1 ([facility]) Body temperature 97.1 [degF] 97.1 [degF] eCW1 ( [facility]) Systolic blood pressure 136 mm[Hg] 136 mm[Hg] e CW1 ([facility]) Body height 68 [in_i] 68 [in_i] eCW1 ([facility]) Diastolic blood pressure 60 mm[Hg] 60 mm[Hg] eCW1 ([facility]) Body mass index (BMI) [Ratio] 16.88 kg/m2 16.88 kg/m2 [facility] ([facility]) Heart rate 87 /min 87 /min eCW1 ([facility]) Respiratory rate 18 /min 18 /min eCW1 ([facility]) Respiratory rate 18 /min 18 /min eCW1 ([facility]) Body weight 111 [lb_av] 111 [lb_av] eCW1 ([facility]) Body height 68 [in_i] 68 [in_i] eCW1 ([facility]) Body mass index (BMI) [Ratio] 16.88 kg/m2 16.88 kg/m2 eCW1 ([facility]) Heart rate 82 /min 82 /min eCW1 ([facility]) Body temperature 96.3 [degF] 96.3 [degF] eCW1 ( [facility]) Systolic blood pressure 123 mm[Hg] 123 mm[Hg] e CW1 ([facility]) Diastolic blood pressure 58 mm[Hg] 58 mm[Hg] eCW1 ([facility]) Body weight 111 [lb_av] 111 [lb_av] eCW1 ([facility]) Body height 68 [in_i] 68 [in_i] eCW1 ([facility]) Body mass index (BMI) [Ratio] 16.88 kg/m2 16.88 kg/m2 eCW1 ([facility]) Heart rate 84 /min 84 /min eCW1 ([facility]) Respiratory rate 16 /min 16 /min eCW1 ([facility]) Body temperature 97.6 [degF] 97.6 [degF] eCW1 ( [facility]) Systolic blood pressure 127 mm[Hg] 127 mm[Hg] e CW1 ([facility]) Diastolic blood pressure 60 mm[Hg] 60 mm[Hg] eCW1 ([facility]) Body weight 111 [lb_av] 111 [lb_av] eCW1 ([facility]) Body height 68 [in_i] 68 [in_i] eCW1 ([facility]) Body mass index (BMI) [Ratio] 16.88 kg/m2 16.88 kg/m2 eCW1 ([facility]) Heart rate 91 /min 91 /min eCW1 ([facility]) Respiratory rate 20 /min 20 /min eCW1 ([facility]) Body temperature 97 [degF] 97 [degF] eCW1 ([facility]) Systolic blood pressure 123 mm[Hg] 123 mm[Hg] e CW1 ([facility]) Diastolic blood pressure 66 mm[Hg] 66 mm[Hg] eCW1 ([facility]) Diastolic blood pressure 73 mm[Hg] 73 mm[Hg] [place] ([facility]) Body height 68 [in_i] 68 [in_i] [place] ([facility]) Body mass index (BMI) [Ratio] 16.9 kg/m2 16.9 k g/m2 [place] ([facility]) Systolic blood pressure 125 mm[Hg] 125 mm[Hg] A [place] ([facility]) Body weight 1776 [oz_av] 1776 [oz_av] [place] ([facility]) Body weight 114 [lb_av] 114 [lb_av] eCW1 ([facility]) Body height 68 [in_i] 68 [in_i] eCW1 ([facility]) Body mass index (BMI) [Ratio] 17.33 kg/m2 17.33 kg/m2 eCW1 ([facility]) Heart rate 93 /min 93 /min eCW1 ([facility]) Respiratory rate 18 /min 18 /min eCW1 ([facility]) Body temperature 98.3 [degF] 98.3 [degF] eCW1 ( [facility]) Systolic blood pressure 134 mm[Hg] 134 mm[Hg] e CW1 ([facility]) Diastolic blood pressure 63 mm[Hg] 63 mm[Hg] eCW1 ([facility]) Body weight 114 [lb_av] 114 [lb_av] eCW1 ([facility]) Body height 68 [in_i] 68 [in_i] eCW1 ([facility]) Body mass index (BMI) [Ratio] 17.33 kg/m2 17.33 kg/m2 eCW1 ([facility]) Heart rate 77 /min 77 /min eCW1 ([facility]) Respiratory rate 18 /min 18 /min eCW1 ([facility]) Body temperature 98.2 [degF] 98.2 [degF] eCW1 ( [facility]) Systolic blood pressure 126 mm[Hg] 126 mm[Hg] e CW1 ([facility]) Diastolic blood pressure 57 mm[Hg] 57 mm[Hg] eCW1 ([facility]) Body weight 114 [lb_av] 114 [lb_av] eCW1 ([facility]) Body height 68 [in_i] 68 [in_i] eCW1 ([facility]) Body mass index (BMI) [Ratio] 17.33 kg/m2 17.33 kg/m2 eCW1 ([facility]) Heart rate 55 /min 55 /min eCW1 ([facility]) Respiratory rate 16 /min 16 /min eCW1 ([facility]) Body temperature 98.3 [degF] 98.3 [degF] eCW1 ( [facility]) Systolic blood pressure 119 mm[Hg] 119 mm[Hg] e CW1 ([facility]) Diastolic blood pressure 61 mm[Hg] 61 mm[Hg] eCW1 ([facility]) Diastolic blood pressure 76 mm[Hg] 76 mm[Hg] [place] ([facility]) Body height 68 [in_i] 68 [in_i] [place] ([facility]) Body mass index (BMI) [Ratio] 17 kg/m2 17 kg/ m2 [place] ([facility]) Systolic blood pressure 116 mm[Hg] 116 mm[Hg] A [place] ([facility]) Body weight 1784 [oz_av] 1784 [oz_av] [place] ([facility]) Diastolic blood pressure 76 mm[Hg] 76 mm[Hg] [place] ([facility]) Body height 68 [in_i] 68 [in_i] [place] ([facility]) Body mass index (BMI) [Ratio] 17 kg/m2 17 kg/ m2 [place] ([facility]) Systolic blood pressure 116 mm[Hg] 116 mm[Hg] A [place] ([facility]) Body weight 1784 [oz_av] 1784 [oz_av] [place] ([facility]) Body weight 114 [lb_av] 114 [lb_av] eCW1 ([facility]) Body weight 51.71 kg 51.71 kg eCW1 ([facility]) Body height 68 [in_i] 68 [in_i] eCW1 ([facility]) Body mass index (BMI) [Ratio] 17.33 kg/m2 17.33 kg/m2 eCW1 ([facility]) Heart rate 75 /min 75 /min eCW1 ([facility]) Respiratory rate 18 /min 18 /min eCW1 ([facility]) Body temperature 98.4 [degF] 98.4 [degF] eCW1 ( [facility]) Systolic blood pressure 153 mm[Hg] 153 mm[Hg] e CW1 ([facility]) Diastolic blood pressure 67 mm[Hg] 67 mm[Hg] eCW1 ([facility]) Body height 68 [in_i] 68 [in_i] eCW1 ([facility]) Body mass index (BMI) [Ratio] 17.33 kg/m2 17.33 kg/m2 eCW1 ([facility]) Heart rate 72 /min 72 /min eCW1 ([facility]) Respiratory rate 18 /min 18 /min eCW1 ([facility]) Body temperature 98.4 [degF] 98.4 [degF] eCW1 ( [facility]) Systolic blood pressure 122 mm[Hg] 122 mm[Hg] e CW1 ([facility]) Diastolic blood pressure 58 mm[Hg] 58 mm[Hg] eCW1 ([facility]) Body weight 114 [lb_av] 114 [lb_av] eCW1 ([facility]) Body weight 51.71 kg 51.71 kg eCW1 ([facility]) Body weight 114 [lb_av] 114 [lb_av] eCW1 ([facility]) Body height 68 [in_i] 68 [in_i] eCW1 ([facility]) Body mass index (BMI) [Ratio] 17.33 kg/m2 17.33 kg/m2 eCW1 ([facility]) Heart rate 94 /min 94 /min eCW1 ([facility]) Respiratory rate 18 /min 18 /min eCW1 ([facility]) Body temperature 98.4 [degF] 98.4 [degF] eCW1 ( [facility]) Systolic blood pressure 127 mm[Hg] 127 mm[Hg] e CW1 ([facility]) Diastolic blood pressure 60 mm[Hg] 60 mm[Hg] eCW1 ([facility]) Body height 68 [in_i] 68 [in_i] [place] ([facility]) Body mass index (BMI) [Ratio] 17 kg/m2 17 kg/ m2 [place] ([facility]) Systolic blood pressure 109 mm[Hg] 109 mm[Hg] A [facility] ([facility]) Body weight 1784 [oz_av] 1784 [oz_av] [place] ([facility]) Diastolic blood pressure 72 mm[Hg] 72 mm[Hg] [place] ([facility]) Diastolic blood pressure 72 mm[Hg] 72 mm[Hg] [place] ([facility]) Body height 68 [in_i] 68 [in_i] [place] ([facility]) Body mass index (BMI) [Ratio] 17 kg/m2 17 kg/ m2 [place] ([facility]) Systolic blood pressure 109 mm[Hg] 109 mm[Hg] A [place] ([facility]) Body weight 1784 [oz_av] 1784 [oz_av] [place] ([facility]) Diastolic blood pressure 72 mm[Hg] 72 mm[Hg] [place] ([facility]) Body height 68 [in_i] 68 [in_i] [place] ([facility]) Body mass index (BMI) [Ratio] 17 kg/m2 17 kg/ m2 [place] ([facility]) Systolic blood pressure 109 mm[Hg] 109 mm[Hg] A [place] ([facility]) Body weight 1784 [oz_av] 1784 [oz_av] [place] ([facility]) Body weight 114 [lb_av] 114 [lb_av] eCW1 ([facility]) Respiratory rate 18 /min 18 /min eCW1 ([facility]) Body height 68 [in_i] 68 [in_i] eCW1 ([facility]) Body temperature 98.3 [degF] 98.3 [degF] eCW1 ( [facility]) Systolic blood pressure 128 mm[Hg] 128 mm[Hg] e CW1 ([facility]) Diastolic blood pressure 58 mm[Hg] 58 mm[Hg] eCW1 ([facility]) Heart rate 74 /min 74 /min eCW1 ([facility]) Body mass index (BMI) [Ratio] 17.33 kg/m2 17.33 kg/m2 eCW1 ([facility]) Body weight 114 [lb_av] 114 [lb_av] eCW1 ([facility]) Body height 68 [in_i] 68 [in_i] eCW1 ([facility]) Body mass index (BMI) [Ratio] 18.4 kg/m2 18.4 k g/m2 eCW1 ([facility]) Heart rate 69 /min 69 /min eCW1 ([facility]) Respiratory rate 18 /min 18 /min eCW1 ([facility]) Body temperature 98.3 [degF] 98.3 [degF] eCW1 ( [facility]) Systolic blood pressure 107 mm[Hg] 107 mm[Hg] e CW1 ([facility]) Diastolic blood pressure 53 mm[Hg] 53 mm[Hg] eCW1 ([facility]) Body weight 114 [lb_av] 114 [lb_av] eCW1 ([facility]) Body weight kg eCW1 ([facility]) Body height 68 [in_i] 68 [in_i] eCW1 ([facility]) Body mass index (BMI) [Ratio] 17.33 kg/m2 17.33 kg/m2 eCW1 ([facility]) Heart rate 81 /min 81 /min eCW1 ([facility]) Respiratory rate 18 /min 18 /min eCW1 ([facility]) Diastolic blood pressure 55 mm[Hg] 55 mm[Hg] eCW1 ([facility]) Body temperature 97.0 [degF] 97.0 [degF] eCW1 ( [facility]) Systolic blood pressure 117 mm[Hg] 117 mm[Hg] e CW1 ([facility]) Diastolic blood pressure 68 mm[Hg] 68 mm[Hg] [place] ([facility]) Body height 68 [in_i] 68 [in_i] [place] ([facility]) Body mass index (BMI) [Ratio] 16.9 kg/m2 16.9 k g/m2 [place] ([facility]) Systolic blood pressure 104 mm[Hg] 104 mm[Hg] A [facility] ([facility]) Body weight 1778 [oz_av] 1778 [oz_av] [place] ([facility]) Body height 68 [in_i] 68 [in_i] [place] ([facility]) Body mass index (BMI) [Ratio] 16.9 kg/m2 16.9 k g/m2 [place] ([facility]) Systolic blood pressure 104 mm[Hg] 104 mm[Hg] A [facility] ([facility]) Body weight 1778 [oz_av] 1778 [oz_av] [place] ([facility]) Diastolic blood pressure 68 mm[Hg] 68 mm[Hg] [place] ([facility]) Diastolic blood pressure 68 mm[Hg] 68 mm[Hg] [place] ([facility]) Body height 68 [in_i] 68 [in_i] [place] ([facility]) Body mass index (BMI) [Ratio] 16.9 kg/m2 16.9 k g/m2 [place] ([facility]) Systolic blood pressure 104 mm[Hg] 104 mm[Hg] A THENA ([facility]) Body weight 1778 [oz_av] 1778 [oz_av] [place] ([facility]) Diastolic blood pressure 68 mm[Hg] 68 mm[Hg] [place] ([facility]) Body height 68 [in_i] 68 [in_i] ROSEMARY ([facility]) Body mass index (BMI) [Ratio] 16.9 kg/m2 16.9 k g/m2 ROSEMARY ([facility]) Systolic blood pressure 104 mm[Hg] 104 mm[Hg] A THENA ([facility]) Body weight 1778 [oz_av] 1778 [oz_av] ROSEMARY ([facility]) Body mass index (BMI) [Ratio] 17.33 kg/m2 17.33 kg/m2 eCW1 ([facility]) Body weight 114 [lb_av] 114 [lb_av] eCW1 ([facility]) Body weight kg eCW1 ([facility]) Body height 68 [in_i] 68 [in_i] eCW1 ([facility]) Heart rate 80 /min 80 /min eCW1 ([facility]) Respiratory rate 18 /min 18 /min eCW1 ([facility]) Body temperature 94.7 [degF] 94.7 [degF] eCW1 ( [facility]) Systolic blood pressure 133 mm[Hg] 133 mm[Hg] e CW1 ([facility]) Diastolic blood pressure 60 mm[Hg] 60 mm[Hg] eCW1 ([facility]) Body weight 114 [lb_av] 114 [lb_av] eCW1 ([facility]) Body weight kg eCW1 ([facility]) Body height 68 [in_i] 68 [in_i] eCW1 ([facility]) Body mass index (BMI) [Ratio] 17.33 kg/m2 17.33 kg/m2 eCW1 ([facility]) Heart rate 61 /min 61 /min eCW1 ([facility]) Respiratory rate 17 /min 17 /min eCW1 ([facility]) Body temperature 94.5 [degF] 94.5 [degF] eCW1 ( [facility]) Systolic blood pressure 142 mm[Hg] 142 mm[Hg] e CW1 ([facility]) Diastolic blood pressure 65 mm[Hg] 65 mm[Hg] eCW1 ([facility]) Body height 68 [in_i] 68 [in_i] eCW1 ([facility]) Body weight 114 [lb_av] 114 [lb_av] eCW1 ([facility]) Body weight kg eCW1 ([facility]) Respiratory rate 21 /min 21 /min eCW1 ([facility]) Body mass index (BMI) [Ratio] 17.33 kg/m2 17.33 kg/m2 eCW1 ([facility]) Body temperature 97.1 [degF] 97.1 [degF] eCW1 ( [facility]) Systolic blood pressure 126 mm[Hg] 126 mm[Hg] e CW1 ([facility]) Diastolic blood pressure 55 mm[Hg] 55 mm[Hg] eCW1 ([facility]) Heart rate 94 /min 94 /min eCW1 ([facility]) Body height 68 [in_i] 68 [in_i] ROSEMARY ([facility]) Body height 68 [in_i] 68 [in_i] ROSEMARY ([facility]) Body height 68 [in_i] 68 [in_i] ROSEMARY ([facility]) Body height 68 [in_i] 68 [in_i] ROSEMARY ([facility]) Body height 68 [in_i] 68 [in_i] ROSEMARY ([facility]) Body weight 114 [lb_av] 114 [lb_av] eCW1 ([facility]) Body weight kg eCW1 ([facility]) Body height 68 [in_i] 68 [in_i] eCW1 ([facility]) Body mass index (BMI) [Ratio] 17.33 kg/m2 17.33 kg/m2 eCW1 ([facility]) Heart rate 105 /min 105 /min eCW1 ([facility]) Respiratory rate 19 /min 19 /min eCW1 ([facility]) Body temperature 95.6 [degF] 95.6 [degF] eCW1 ( [facility]) Systolic blood pressure 139 mm[Hg] 139 mm[Hg] e CW1 ([facility]) Diastolic blood pressure 91 mm[Hg] 91 mm[Hg] eCW1 ([facility]) Diastolic blood pressure 72 mm[Hg] 72 mm[Hg] ROSEMARY ([facility]) Systolic blood pressure 112 mm[Hg] 112 mm[Hg] A [facility] ([facility]) Body weight 1832 [oz_av] 1832 [oz_av] ROSEMARY ([facility]) Body height 68 [in_i] 68 [in_i] ROSEMARY ([facility]) Body mass index (BMI) [Ratio] 17.4 kg/m2 17.4 k g/m2 ROSEMARY ([facility]) Diastolic blood pressure 72 mm[Hg] 72 mm[Hg] ROSEMARY ([facility]) Body height 68 [in_i] 68 [in_i] ROSEMARY ([facility]) Body mass index (BMI) [Ratio] 17.4 kg/m2 17.4 k g/m2 ROSEMARY ([facility]) Systolic blood pressure 112 mm[Hg] 112 mm[Hg] A THENA ([facility]) Body weight 1832 [oz_av] 1832 [oz_av] ROSEMARY ([facility]) Diastolic blood pressure 72 mm[Hg] 72 mm[Hg] ROSEMARY ([facility]) Body height 68 [in_i] 68 [in_i] ROSEMARY ([facility]) Body mass index (BMI) [Ratio] 17.4 kg/m2 17.4 k g/m2 ROSEMARY ([facility]) Systolic blood pressure 112 mm[Hg] 112 mm[Hg] A THENA ([facility]) Body weight 1832 [oz_av] 1832 [oz_av] ROSEMARY ([facility]) Diastolic blood pressure 72 mm[Hg] 72 mm[Hg] ROSEMARY ([facility]) Body height 68 [in_i] 68 [in_i] ROSEMARY ([facility]) Body mass index (BMI) [Ratio] 17.4 kg/m2 17.4 k g/m2 ROSEMARY ([facility]) Systolic blood pressure 112 mm[Hg] 112 mm[Hg] A THENA ([facility]) Body weight 1832 [oz_av] 1832 [oz_av] ROSEMARY ([facility]) Body weight 1832 [oz_av] 1832 [oz_av] ROSEMARY ([facility]) Diastolic blood pressure 72 mm[Hg] 72 mm[Hg] ROSEMARY ([facility]) Body height 68 [in_i] 68 [in_i] ROSEMARY ([facility]) Body mass index (BMI) [Ratio] 17.4 kg/m2 17.4 k g/m2 ROSEMARY ([facility]) Systolic blood pressure 112 mm[Hg] 112 mm[Hg] A THENA ([facility]) Diastolic blood pressure 72 mm[Hg] 72 mm[Hg] ROSEMARY ([facility]) Body height 68 [in_i] 68 [in_i] ROSEMARY ([facility]) Body mass index (BMI) [Ratio] 17.4 kg/m2 17.4 k g/m2 ROSEMARY ([facility]) Systolic blood pressure 112 mm[Hg] 112 mm[Hg] A THENA ([facility]) Body weight 1832 [oz_av] 1832 [oz_av] ROSEMARY ([facility]) Body weight 132 [lb_av] 132 [lb_av] eCW1 ([facility]) Body weight kg eCW1 ([facility]) Body height 68 [in_i] 68 [in_i] eCW1 ([facility]) Body mass index (BMI) [Ratio] 20.07 kg/m2 20.07 kg/m2 eCW1 ([facility]) Heart rate 89 /min 89 /min eCW1 ([facility]) Respiratory rate 18 /min 18 /min eCW1 ([facility]) Body temperature 96.7 [degF] 96.7 [degF] eCW1 ( [facility]) Systolic blood pressure 125 mm[Hg] 125 mm[Hg] e CW1 ([facility]) Diastolic blood pressure 60 mm[Hg] 60 mm[Hg] eCW1 ([facility]) Body weight 132 [lb_av] 132 [lb_av] eCW1 ([facility]) Body weight kg eCW1 ([facility]) Body height 68 [in_i] 68 [in_i] eCW1 ([facility]) Body mass index (BMI) [Ratio] 20.07 kg/m2 20.07 kg/m2 eCW1 ([facility]) Heart rate 102 /min 102 /min eCW1 ([facility]) Respiratory rate 18 /min 18 /min eCW1 ([facility]) Body temperature 98.3 [degF] 98.3 [degF] eCW1 ( [facility]) Systolic blood pressure 136 mm[Hg] 136 mm[Hg] e CW1 ([facility]) Diastolic blood pressure 64 mm[Hg] 64 mm[Hg] eCW1 ([facility]) Diastolic blood pressure 80 mm[Hg] 80 mm[Hg] eCW1 ([facility]) Body weight kg eCW1 ([facility]) Body height 68 [in_i] 68 [in_i] eCW1 ([facility]) Body mass index (BMI) [Ratio] 20.07 kg/m2 20.07 kg/m2 eCW1 ([facility]) Heart rate 96 /min 96 /min eCW1 ([facility]) Body weight 132 [lb_av] 132 [lb_av] eCW1 ([facility]) Respiratory rate 18 /min 18 /min eCW1 ([facility]) Body temperature 98.2 [degF] 98.2 [degF] eCW1 ( [facility]) Systolic blood pressure 128 mm[Hg] 128 mm[Hg] e CW1 ([facility]) Body weight 132 [lb_av] 132 [lb_av] eCW1 ([facility]) Body weight kg eCW1 ([facility]) Body height 68 [in_i] 68 [in_i] eCW1 ([facility]) Body mass index (BMI) [Ratio] 20.07 kg/m2 20.07 kg/m2 eCW1 ([facility]) Heart rate 98 /min 98 /min eCW1 ([facility]) Respiratory rate 18 /min 18 /min eCW1 ([facility]) Body temperature 98.4 [degF] 98.4 [degF] eCW1 ( [facility]) Systolic blood pressure 134 mm[Hg] 134 mm[Hg] e CW1 ([facility]) Diastolic blood pressure 52 mm[Hg] 52 mm[Hg] eCW1 ([facility]) Body weight 132 [lb_av] 132 [lb_av] eCW1 ([facility]) Body weight kg eCW1 ([facility]) Body height 68 [in_i] 68 [in_i] eCW1 ([facility]) Body mass index (BMI) [Ratio] 20.07 kg/m2 20.07 kg/m2 eCW1 ([facility]) Heart rate 53 /min 53 /min eCW1 ([facility]) Respiratory rate 16 /min 16 /min eCW1 ([facility]) Body temperature 97.8 [degF] 97.8 [degF] eCW1 ( [facility]) Systolic blood pressure 147 mm[Hg] 147 mm[Hg] e CW1 ([facility]) Diastolic blood pressure 65 mm[Hg] 65 mm[Hg] eCW1 ([facility]) Body height 68 [in_i] 68 [in_i] eCW1 ([facility]) Body weight 132 [lb_av] 132 [lb_av] eCW1 ([facility]) Body mass index (BMI) [Ratio] 20.07 kg/m2 20.07 kg/m2 eCW1 ([facility]) Body weight kg eCW1 ([facility]) Heart rate 77 /min 77 /min eCW1 ([facility]) Respiratory rate 16 /min 16 /min eCW1 ([facility]) Body temperature 94.7 [degF] 94.7 [degF] eCW1 ( [facility]) Systolic blood pressure 127 mm[Hg] 127 mm[Hg] e CW1 ([facility]) Diastolic blood pressure 67 mm[Hg] 67 mm[Hg] eCW1 ([facility]) Body mass index (BMI) [Ratio] 20.1 kg/m2 20.1 k g/m2 MEDENT ([facility] Body height 68 [in_i] 68 [in_i] MEDENT ([facility] 5'8" Body weight 132.00 [lb_av] 132.00 [lb_av] MEDEN T ([facility] Systolic blood pressure 130 mm[Hg] 130 mm[Hg] M EDENT ([facility] Diastolic blood pressure 68 mm[Hg] 68 mm[Hg] MEDENT ([facility] Heart rate 78 /min 78 /min MEDENT ([facility] Body height 68 [in_i] 68 [in_i] eCW1 ([facility]) Body mass index (BMI) [Ratio] 20.07 kg/m2 20.07 kg/m2 W1 ([facility]) Heart rate 91 /min 91 /min eCW1 ([facility]) Respiratory rate 18 /min 18 /min eCW1 ([facility]) Body temperature 96.9 [degF] 96.9 [degF] eCW1 ( [facility]) Systolic blood pressure 128 mm[Hg] 128 mm[Hg] e CW1 ([facility]) Diastolic blood pressure 59 mm[Hg] 59 mm[Hg] eCW1 ([facility]) Body weight 132 [lb_av] 132 [lb_av] eCW1 ([facility]) Body weight kg eCW1 ([facility]) Body weight 132 [lb_av] 132 [lb_av] eCW1 ([facility]) Body weight kg eCW1 ([facility]) Body height 68 [in_i] 68 [in_i] eCW1 ([facility]) Body mass index (BMI) [Ratio] 20.07 kg/m2 20.07 kg/m2 eCW1 ([facility]) Heart rate 67 /min 67 /min eCW1 ([facility]) Respiratory rate 20 /min 20 /min eCW1 ([facility]) Body temperature 98.2 [degF] 98.2 [degF] eCW1 ( [facility]) Systolic blood pressure 168 mm[Hg] 168 mm[Hg] e CW1 ([facility]) Diastolic blood pressure 72 mm[Hg] 72 mm[Hg] eCW1 ([facility]) Body weight 132 [lb_av] 132 [lb_av] eCW1 ([facility]) Body weight kg eCW1 ([facility]) Body height 68 [in_i] 68 [in_i] eCW1 ([facility]) Body mass index (BMI) [Ratio] 20.07 kg/m2 20.07 kg/m2 W1 ([facility]) Heart rate 81 /min 81 /min eCW1 ([facility]) Respiratory rate 19 /min 19 /min eCW1 ([facility]) Body temperature 95.7 [degF] 95.7 [degF] eCW1 ( [facility]) Systolic blood pressure 122 mm[Hg] 122 mm[Hg] e CW1 ([facility]) Diastolic blood pressure 57 mm[Hg] 57 mm[Hg] eCW1 ([facility]) Body weight 132 [lb_av] 132 [lb_av] eCW1 ([facility]) Body weight kg eCW1 ([facility]) Body height 68 [in_i] 68 [in_i] eCW1 ([facility]) Body mass index (BMI) [Ratio] 20.07 kg/m2 20.07 kg/m2 eCW1 ([facility]) Heart rate 97 /min 97 /min eCW1 ([facility]) Respiratory rate 17 /min 17 /min eCW1 ([facility]) Body temperature 97.3 [degF] 97.3 [degF] eCW1 ( [facility]) Systolic blood pressure 121 mm[Hg] 121 mm[Hg] e CW1 ([facility]) Diastolic blood pressure 69 mm[Hg] 69 mm[Hg] eCW1 ([facility]) Body weight 115 [lb_av] 115 [lb_av] eCW1 ([facility]) Body weight kg eCW1 ([facility]) Body height 68 [in_i] 68 [in_i] eCW1 ([facility]) Body mass index (BMI) [Ratio] 17.48 kg/m2 17.48 kg/m2 eCW1 ([facility]) Heart rate 91 /min 91 /min eCW1 ([facility]) Respiratory rate 18 /min 18 /min eCW1 ([facility]) Body temperature 98.3 [degF] 98.3 [degF] eCW1 ( [facility]) Systolic blood pressure 132 mm[Hg] 132 mm[Hg] e CW1 ([facility]) Diastolic blood pressure 64 mm[Hg] 64 mm[Hg] eCW1 ([facility]) Body weight 115 [lb_av] 115 [lb_av] eCW1 ([facility]) Body weight kg eCW1 ([facility]) Body height 68 [in_i] 68 [in_i] eCW1 ([facility]) Body mass index (BMI) [Ratio] 17.48 kg/m2 17.48 kg/m2 eCW1 ([facility]) Heart rate 88 /min 88 /min eCW1 ([facility]) Respiratory rate 18 /min 18 /min eCW1 ([facility]) Body temperature 98.2 [degF] 98.2 [degF] eCW1 ( [facility]) Systolic blood pressure 142 mm[Hg] 142 mm[Hg] e CW1 ([facility]) Diastolic blood pressure 77 mm[Hg] 77 mm[Hg] eCW1 ([facility]) Body weight 115 [lb_av] 115 [lb_av] eCW1 ([facility]) Body weight kg eCW1 ([facility]) Body height 68 [in_i] 68 [in_i] eCW1 ([facility]) Body mass index (BMI) [Ratio] 17.48 kg/m2 17.48 kg/m2 eCW1 ([facility]) Heart rate 95 /min 95 /min eCW1 ([facility]) Respiratory rate 18 /min 18 /min eCW1 ([facility]) Body temperature 98.2 [degF] 98.2 [degF] eCW1 ( [facility]) Systolic blood pressure 134 mm[Hg] 134 mm[Hg] e CW1 ([facility]) Diastolic blood pressure 65 mm[Hg] 65 mm[Hg] eCW1 ([facility]) Body weight 115 [lb_av] 115 [lb_av] eCW1 ([facility]) Body weight kg eCW1 ([facility]) Body height 68 [in_i] 68 [in_i] eCW1 ([facility]) Body mass index (BMI) [Ratio] 17.48 kg/m2 17.48 kg/m2 eCW1 ([facility]) Heart rate 67 /min 67 /min eCW1 ([facility]) Respiratory rate 18 /min 18 /min eCW1 ([facility]) Body temperature 95.5 [degF] 95.5 [degF] eCW1 ( [facility]) Systolic blood pressure 126 mm[Hg] 126 mm[Hg] e CW1 ([facility]) Diastolic blood pressure 58 mm[Hg] 58 mm[Hg] eCW1 ([facility]) Body weight 115 [lb_av] 115 [lb_av] eCW1 ([facility]) Body height 68 [in_i] 68 [in_i] eCW1 ([facility]) Body mass index (BMI) [Ratio] 17.48 kg/m2 17.48 kg/m2 eCW1 ([facility]) Heart rate 95 /min 95 /min eCW1 ([facility]) Respiratory rate 18 /min 18 /min eCW1 ([facility]) Body temperature 98 [degF] 98 [degF] eCW1 ([facility]) Systolic blood pressure 127 mm[Hg] 127 mm[Hg] e CW1 ([facility]) Diastolic blood pressure 61 mm[Hg] 61 mm[Hg] eCW1 ([facility]) Body weight 115 [lb_av] 115 [lb_av] eCW1 ([facility]) Body weight kg eCW1 ([facility]) Body height 68 [in_i] 68 [in_i] eCW1 ([facility]) Body mass index (BMI) [Ratio] 17.48 kg/m2 17.48 kg/m2 eCW1 ([facility]) Heart rate 89 /min 89 /min eCW1 ([facility]) Respiratory rate 18 /min 18 /min eCW1 ([facility]) Body temperature 97 [degF] 97 [degF] eCW1 ([facility]) Systolic blood pressure 132 mm[Hg] 132 mm[Hg] e CW1 ([facility]) Diastolic blood pressure 61 mm[Hg] 61 mm[Hg] eCW1 ([facility]) Body weight 115 [lb_av] 115 [lb_av] eCW1 ([facility]) Body weight kg eCW1 ([facility]) Body height 68 [in_i] 68 [in_i] eCW1 ([facility]) Body mass index (BMI) [Ratio] 17.48 kg/m2 17.48 kg/m2 eCW1 ([facility]) Heart rate 102 /min 102 /min eCW1 ([facility]) Respiratory rate 19 /min 19 /min eCW1 ([facility]) Body temperature 96.2 [degF] 96.2 [degF] eCW1 ( [facility]) Systolic blood pressure 123 mm[Hg] 123 mm[Hg] e CW1 ([facility]) Diastolic blood pressure 74 mm[Hg] 74 mm[Hg] eCW1 ([facility]) Body temperature 97.3 [degF] 97.3 [degF] MEDENT ([facility]) Body weight 115 [lb_av] 115 [lb_av] eCW1 ([facility]) Body height 68 [in_i] 68 [in_i] eCW1 ([facility]) Body mass index (BMI) [Ratio] 17.48 kg/m2 17.48 kg/m2 eCW1 ([facility]) Heart rate 74 /min 74 /min eCW1 ([facility]) Respiratory rate 18 /min 18 /min eCW1 ([facility]) Body temperature 96.6 [degF] 96.6 [degF] eCW1 ( [facility]) Systolic blood pressure 134 mm[Hg] 134 mm[Hg] e CW1 ([facility]) Diastolic blood pressure 60 mm[Hg] 60 mm[Hg] eCW1 ([facility]) Respiratory rate 18 /min 18 /min eCW1 ([facility]) Body temperature 96.9 [degF] 96.9 [degF] eCW1 ( [facility]) Systolic blood pressure 117 mm[Hg] 117 mm[Hg] e CW1 ([facility]) Diastolic blood pressure 57 mm[Hg] 57 mm[Hg] eCW1 ([facility]) Body weight 115 [lb_av] 115 [lb_av] eCW1 ([facility]) Body weight kg eCW1 ([facility]) Body height 68 [in_i] 68 [in_i] eCW1 ([facility]) Body mass index (BMI) [Ratio] 17.48 kg/m2 17.48 kg/m2 eCW1 ([facility]) Heart rate 80 /min 80 /min eCW1 ([facility]) Body mass index (BMI) [Ratio] 17.48 kg/m2 17.48 kg/m2 eCW1 ([facility]) Heart rate 98 /min 98 /min eCW1 ([facility]) Body weight 115 [lb_av] 115 [lb_av] eCW1 ([facility]) Body temperature 98.5 [degF] 98.5 [degF] eCW1 ( [facility]) Respiratory rate 18 /min 18 /min eCW1 ([facility]) Body weight kg eCW1 ([facility]) Body height 68 [in_i] 68 [in_i] eCW1 ([facility]) Systolic blood pressure 117 mm[Hg] 117 mm[Hg] e CW1 ([facility]) Diastolic blood pressure 60 mm[Hg] 60 mm[Hg] eCW1 ([facility]) Body temperature 96.9 [degF] 96.9 [degF] MEDENT ([facility]) Body height 68 [in_i] 68 [in_i] eCW1 ([facility]) Body weight 115 [lb_av] 115 [lb_av] eCW1 ([facility]) Body mass index (BMI) [Ratio] 17.48 kg/m2 17.48 kg/m2 eCW1 ([facility]) Heart rate 65 /min 65 /min eCW1 ([facility]) Respiratory rate 18 /min 18 /min eCW1 ([facility]) Body temperature 97.7 [degF] 97.7 [degF] eCW1 ( [facility]) Systolic blood pressure 109 mm[Hg] 109 mm[Hg] e CW1 ([facility]) Body weight kg eCW1 ([facility]) Diastolic blood pressure 74 mm[Hg] 74 mm[Hg] eCW1 ([facility]) Body height 68 [in_i] 68 [in_i] eCW1 ([facility]) Body weight kg eCW1 ([facility]) Body weight 115 [lb_av] 115 [lb_av] eCW1 ([facility]) Body mass index (BMI) [Ratio] 17.48 kg/m2 17.48 kg/m2 eCW1 ([facility]) Respiratory rate 17 /min 17 /min eCW1 ([facility]) Body temperature 98.8 [degF] 98.8 [degF] eCW1 ( [facility]) Body weight 115 [lb_av] 115 [lb_av] eCW1 ([facility]) Body weight kg eCW1 ([facility]) Body height 68 [in_i] 68 [in_i] eCW1 ([facility]) Body mass index (BMI) [Ratio] 17.48 kg/m2 17.48 kg/m2 eCW1 ([facility]) Heart rate 95 /min 95 /min eCW1 ([facility]) Respiratory rate 20 /min 20 /min eCW1 ([facility]) Body temperature 95.8 [degF] 95.8 [degF] eCW1 ( [facility]) Systolic blood pressure 136 mm[Hg] 136 mm[Hg] e CW1 ([facility]) Diastolic blood pressure 61 mm[Hg] 61 mm[Hg] eCW1 ([facility]) Body weight 115 [lb_av] 115 [lb_av] eCW1 ([facility]) Body weight kg eCW1 ([facility]) Body height 68 [in_i] 68 [in_i] eCW1 ([facility]) Body mass index (BMI) [Ratio] 17.48 kg/m2 17.48 kg/m2 eCW1 ([facility]) Heart rate 99 /min 99 /min eCW1 ([facility]) Respiratory rate 19 /min 19 /min eCW1 ([facility]) Body temperature 97.9 [degF] 97.9 [degF] eCW1 ( [facility]) Systolic blood pressure 137 mm[Hg] 137 mm[Hg] e CW1 ([facility]) Diastolic blood pressure 73 mm[Hg] 73 mm[Hg] eCW1 ([facility]) Body weight 115 [lb_av] 115 [lb_av] eCW1 ([facility]) Body weight kg eCW1 ([facility]) Body height 68 [in_i] 68 [in_i] eCW1 ([facility]) Body mass index (BMI) [Ratio] 17.48 kg/m2 17.48 kg/m2 eCW1 ([facility]) Heart rate 98 /min 98 /min eCW1 ([facility]) Respiratory rate 16 /min 16 /min eCW1 ([facility]) Body temperature 95.5 [degF] 95.5 [degF] eCW1 ( [facility]) Systolic blood pressure 119 mm[Hg] 119 mm[Hg] e CW1 ([facility]) Diastolic blood pressure 59 mm[Hg] 59 mm[Hg] eCW1 ([facility]) Body weight 115 [lb_av] 115 [lb_av] eCW1 ([facility]) Body weight kg eCW1 ([facility]) Body height 68 [in_i] 68 [in_i] eCW1 ([facility]) Body mass index (BMI) [Ratio] 17.48 kg/m2 17.48 kg/m2 eCW1 ([facility]) Heart rate 95 /min 95 /min eCW1 ([facility]) Respiratory rate 18 /min 18 /min eCW1 ([facility]) Body temperature 97.9 [degF] 97.9 [degF] eCW1 ( [facility]) Systolic blood pressure 128 mm[Hg] 128 mm[Hg] e CW1 ([facility]) Diastolic blood pressure 61 mm[Hg] 61 mm[Hg] eCW1 ([facility]) Body weight 115 [lb_av] 115 [lb_av] eCW1 ([facility]) Body height 68 [in_i] 68 [in_i] eCW1 ([facility]) Systolic blood pressure 106 mm[Hg] 106 mm[Hg] e CW1 ([facility]) Diastolic blood pressure 63 mm[Hg] 63 mm[Hg] eCW1 ([facility]) Body mass index (BMI) [Ratio] 17.48 kg/m2 17.48 kg/m2 eCW1 ([facility]) Heart rate 103 /min 103 /min eCW1 ([facility]) Respiratory rate 20 /min 20 /min eCW1 ([facility]) Body temperature 97 [degF] 97 [degF] eCW1 ([facility]) Body weight 115 [lb_av] 115 [lb_av] eCW1 ([facility]) Body weight kg eCW1 ([facility]) Body height 68 [in_i] 68 [in_i] eCW1 ([facility]) Body mass index (BMI) [Ratio] 17.48 kg/m2 17.48 kg/m2 eCW1 ([facility]) Heart rate 93 /min 93 /min eCW1 ([facility]) Respiratory rate 16 /min 16 /min eCW1 ([facility]) Body temperature 97.7 [degF] 97.7 [degF] eCW1 ( [facility]) Systolic blood pressure 134 mm[Hg] 134 mm[Hg] e CW1 ([facility]) Diastolic blood pressure 63 mm[Hg] 63 mm[Hg] eCW1 ([facility]) Patient Treatment Plan of Care Planned Activity Planned Date Details Description Data Source (s) NITROFURANTOIN, MACROCRYSTALS 25 MG / Ni trofurantoin, Monohydrate 75 MG Oral Capsule [facility] ([facility]) Mupirocin 0.02 MG/MG Topical Ointment [facility] ([facility]) Ibuprofen 600 MG Oral Tablet [facility] ([facility]) Furosemide 20 MG Oral Tablet [facility] ([facility]) Fluconazole 150 MG Oral Tablet [facility] ([facility]) Cephalexin 500 MG Oral Capsule [facility] ([facility]) NITROFURANTOIN, MACROCRYSTALS 25 MG / Ni trofurantoin, Monohydrate 75 MG Oral Capsule [facility] ([facility]) Mupirocin 0.02 MG/MG Topical Ointment [facility] ([facility]) Ibuprofen 600 MG Oral Tablet [facility] ([facility]) Furosemide 20 MG Oral Tablet [facility] ([facility]) Fluconazole 150 MG Oral Tablet [facility] ([facility]) Cephalexin 500 MG Oral Capsule [facility] ([facility]) NITROFURANTOIN, MACROCRYSTALS 25 MG / Ni trofurantoin, Monohydrate 75 MG Oral Capsule [facility] ([facility]) Mupirocin 0.02 MG/MG Topical Ointment [facility] ([facility]) Ibuprofen 600 MG Oral Tablet [facility] ([facility]) Furosemide 20 MG Oral Tablet [facility] ([facility]) Fluconazole 150 MG Oral Tablet [facility] ([facility]) Cephalexin 500 MG Oral Capsule [facility] ([facility]) NITROFURANTOIN, MACROCRYSTALS 25 MG / Ni trofurantoin, Monohydrate 75 MG Oral Capsule [facility] ([facility]) Mupirocin 0.02 MG/MG Topical Ointment [facility] ([facility]) Ibuprofen 600 MG Oral Tablet [facility] ([facility]) Furosemide 20 MG Oral Tablet [facility] ([facility]) Fluconazole 150 MG Oral Tablet [facility] ([facility]) Cephalexin 500 MG Oral Capsule [facility] ([facility]) NITROFURANTOIN, MACROCRYSTALS 25 MG / Ni trofurantoin, Monohydrate 75 MG Oral Capsule [facility] ([facility]) Mupirocin 0.02 MG/MG Topical Ointment [facility] ([facility]) Ibuprofen 600 MG Oral Tablet [facility] ([facility]) Furosemide 20 MG Oral Tablet [facility] ([facility]) Fluconazole 150 MG Oral Tablet [facility] ([facility]) Cephalexin 500 MG Oral Capsule [facility] ([facility]) NITROFURANTOIN, MACROCRYSTALS 25 MG / Ni trofurantoin, Monohydrate 75 MG Oral Capsule [facility] ([facility]) Mupirocin 0.02 MG/MG Topical Ointment [facility] ([facility]) Ibuprofen 600 MG Oral Tablet [facility] ([facility]) Furosemide 20 MG Oral Tablet [facility] ([facility]) Fluconazole 150 MG Oral Tablet [facility] ([facility]) Cephalexin 500 MG Oral Capsule [facility] ([facility])
[2021-08-08] MEDS ORDERED: ELIQ5TAB PO (05:23)
[2021-08-08] MEDS ORDERED: HOME MED LIST COMPLETE! XX SCH (05:25)
[2021-08-08] MEDS ORDERED: DEXTROSE 50% 50 ML SYRINGE IV PRN (05:55)
[2021-08-08] MEDS ORDERED: GLUCAGON INJ 1MG VIAL SC PRN (05:55)
[2021-08-08] MEDS ORDERED: GLUCOSE 4GM CHEW TABLET PO PRN (05:55)
--- OUTSIDE RECORDS SUMMARY | 2021-08-08 06:18 | CCD ---
Author Author [facility] Organization [facility] Address Unknown Phone Unavailable Care Team Providers Care Flask Cleaner Name Role Phone Dewayne Banerjee MD Unavailable [...] Unavailable Unavailable Dewayne Banerjee MD Unavailable Unavailable Dewanye aBnerjee MD Unavailable Unavailable Dewayne Banerjee MD Unavailable Unavailable Dewayne Banerjee MD Unavailable Unavailable Dewayne Banerjee MD Unavailable Unavailable Dewayne Banerjee MD Unavailable Unavailable Dewayne Banerjee MD Unavailable Unavailable Dewayne Banerjee MD Unavailable Unavailable Dewayne Banerjee MD Unavailable Unavailable Dewayne Banerjee MD Unavailable Unavailable Dewayne Banejree MD Unavailable Unavailable Dewayne Banerjee MD Unavailable [...] Unavailable Unavailable Dewayne Banerjee MD Unavailable Unavailable Dewanye Banerjee MD Unavailable Unavailable Dewayne Banerjee MD [...] Banerjee MD Unavailable Unavailable Steve, A Leatha CIRCULATION DIRECTOR Unavailable Unavailable Steve, A Leatha CIRCULATION DIRECTOR Unavailable Unavailable Steve, A Leatha CIRCULATION DIRECTOR Unavailable Unavailable Steve, A Leatha CIRCULATION DIRECTOR Unavailable Unavailable Steve, A Leatha CIRCULATION DIRECTOR Unavailable Unavailable Steve, A Leatha CIRCULATION DIRECTOR Unavailable Unavailable Steve, A Leatha CIRCULATION DIRECTOR Unavailable Unavailable Steve, A Leatha CIRCULATION DIRECTOR Unavailable Unavailable Steve, A Leatha CIRCULATION DIRECTOR Unavailable Unavailable Steve, A Leatha CIRCULATION DIRECTOR Unavailable Unavailable Steve, A Leatha CIRCULATION DIRECTOR Unavailable Unavailable Steve, A Leatha CIRCULATION DIRECTOR Unavailable Unavailable Steve, A Leatha CIRCULATION DIRECTOR Unavailable Unavailable Steve, A Leatha CIRCULATION DIRECTOR Unavailable Unavailable Steve, A Leatha CIRCULATION DIRECTOR Unavailable Unavailable Steve, A Leatha CIRCULATION DIRECTOR Unavailable Unavailable Steve, A Leatha CIRCULATION DIRECTOR Unavailable Unavailable Steve, A Leatha CIRCULATION DIRECTOR Unavailable Unavailable Steve, A Leatha CIRCULATION DIRECTOR Unavailable Unavailable Steve, A Leatha CIRCULATION DIRECTOR Unavailable Unavailable Steve, A Leatha CIRCULATION DIRECTOR Unavailable Unavailable Steve, A Leatha CIRCULATION DIRECTOR Unavailable Unavailable Steve, A Leatha CIRCULATION DIRECTOR Unavailable Unavailable Steve, A Leatha CIRCULATION DIRECTOR Unavailable Unavailable Steve, A Leatha CIRCULATION DIRECTOR Unavailable Unavailable Steve, A Leatha CIRCULATION DIRECTOR Unavailable Unavailable Steve, A Leatha CIRCULATION DIRECTOR Unavailable Unavailable Steve, A Leatha CIRCULATION DIRECTOR Unavailable Unavailable Steve, A Leatha CIRCULATION DIRECTOR Unavailable Unavailable Steve, A Leatha CIRCULATION DIRECTOR Unavailable Unavailable Steve, A Leatha CIRCULATION DIRECTOR Unavailable Unavailable EGNACZAK, M EMELI ROUTER TENDER Unavailable Unavailable EGNACZAK, M EMELI ROUTER TENDER Unavailable Unavailable EGNACZAK, M EMELI ROUTER TENDER Unavailable Unavailable EGNACZAK, M EMELI ROUTER TENDER Unavailable Unavailable EGNACZAK, M EMELI ROUTER TENDER Unavailable Unavailable EGNACZAK, M EMELI ROUTER TENDER Unavailable Unavailable EGNACZAK, M EMELI ROUTER TENDER Unavailable Unavailable EGNACZAK, M EMELI ROUTER TENDER Unavailable Unavailable EGNACZAK, M EMELI ROUTER TENDER Unavailable Unavailable EGNACZAK, M EMELI ROUTER TENDER Unavailable Unavailable EGNACZAK, M EMELI ROUTER TENDER Unavailable Unavailable MAJAK, R PEGGY DPM Unavailable [...] is protected by Article 27-F of the [facility] Public Health law. If you continue you may have access to information: Regarding HIV / AIDS; Provided by facilities licensed or operated by the [facility] Office of Mental Health; or Provided by the [facility] Office for People With Developmental Disabilities. If such information is present, then the following [facility] mandated warning applies: This information has been [...] law may result in a fine or retirement sentence or both. A general authorization for the release of medical or other information is NOT sufficient authorization for further disc losure. Family History Family Member Name Family Member Gender Family Member Status Date o f Status Description Data Source(s) Unknown Male Problem MEDENT ([facility]) Encounters Encounter Providers Location Date Indications Data Source(s ) Unknown [address] [facility] [place] [address] 08/04/2021 12:00:00 AM EST eCW1 ([facility]) Unknown [address] [facility] [place] [address] 08/03/2021 12:00:00 AM EST eCW1 ([facility]) ([id number]) For Template Turner [address] [place] [address] 07/26/2021 12:00:00 AM EST eCW1 ([facility]) ([id number]) For Template Turner [address] [place] [address] 07/20/2021 12:00:00 AM EST eCW1 ([facility]) ([id number]) For Template Turner [address] [place] [phone] 07/13/2021 12:00:00 AM EST eCW1 ([facility]) Unknown [address] [facility] [address] 07/03/2021 12:00:00 AM EDT eCW1 ([facility]) ([id number]) For Template Turner [address] [place] [phone] 06/30/2021 12:00:00 AM EDT eCW1 ([facility]) Jon Banerjee MD: [address] [place] [phone], Ph. Attender: Jon Banerjee MD [facility] Medical 06/26/2021 12:00:00 AM EDT [place] ([facility]) ([id number]) For Template Turner [address] [place] [phone] 06/23/2021 12:00:00 AM EDT eCW1 ([facility]) Outpatient Attender: EMELI DONALDSON ROUTER TENDER [facility] 06/21/2021 12:00:00 AM EDT [facility] ([id number]) For Template Turner [address] [place] [address] 06/16/2021 12:00:00 AM EDT eCW1 ([facility]) ([id number]) For Template Turner [address] [place] [phone] 06/09/2021 12:00:00 AM EDT eCW1 ([facility]) Unknown [address] [facility] [place] [address] 06/02/2021 12:00:00 AM EDT eCW1 ([facility]) Jon Banerjee MD: [address] [place] [phone], Ph. Attender: Jon Banerjee MD [facility] Medical 06/01/2021 12:00:00 AM EDT [place] ([facility]) Jon Banerjee MD: [address] [place] [phone], Ph. Attender: Jon Banerjee MD [facility] Medical 06/01/2021 12:00:00 AM EDT [place] ([facility]) ([id number]) For Template Turner [facility] [place] [address] 05/19/2021 12:00:00 AM EDT eCW1 ([facility]) Unknown [address] [facility] [address] 05/17/2021 12:00:00 AM EDT eCW1 ([facility]) ([id number]) For Template Turner [facility] [place] [address] 05/12/2021 12:00:00 AM EDT eCW1 ([facility]) Unknown [address] [facility] [address] 05/05/2021 12:00:00 AM EDT eCW1 ([facility]) Unknown [address] [facility] [address] 04/26/2021 12:00:00 AM EDT eCW1 ([facility]) ([id number]) For Template Turner [address] [place] [phone] 04/21/2021 12:00:00 AM EDT eCW1 ([facility]) [facility]: [address], [place] [address], Ph. Attender: Leatha Wilson [facility] Medical 04/20/2021 12:00:00 AM EDT [place] ([facility]) [facility]: [address] [place] [address], Ph. Attender: Leatha Wilson [facility] Medical 04/20/2021 12:00:00 AM EDT [place] ([facility]) [facility]: [address] [place] [address], Ph. Attender: Leatha Wilson [facility] Medical 04/20/2021 12:00:00 AM EDT [place] ([facility]) Office Visit, Est Pt., Level 2 FC [address] [place] [address] 04/14/2021 12:00:00 AM EDT eCW1 ([facility]) Unknown [address] [facility], [facility] [address] 04/14/2021 12:00:00 AM EDT eCW1 ([facility]) ([id number]) For Template Turner [address] [place] [phone] 04/07/2021 12:00:00 AM EDT eCW1 ([facility]) YESENIA RamirezP-BC: [address], [place] [address], Ph. Attender: Leatha Wilson [facility] Medical 03/31/2021 12:00:00 AM EDT [place] ([facility]) Leatha Wilson [facility]: [address], [place] [address], Ph. Attender: Leatha Wilson [facility] Medical 03/31/2021 12:00:00 AM EDT [place] ([facility]) Leatha Wilson [facility]: [address], [place] [address], Ph. Attender: Leatha Wilson [facility] Medical 03/31/2021 12:00:00 AM EDT [place] ([facility]) ([id number]) For Template Turner [address] [place] [address] 03/31/2021 12:00:00 AM EDT eCW1 ([facility]) Leatha Wilson [facility]: [address], [place] [address], Ph. Attender: Leatha Wilson [facility] Medical 03/31/2021 12:00:00 AM EDT [place] ([facility]) Unknown [address] [facility] [address] 03/24/2021 12:00:00 AM EDT eCW1 ([facility]) Outpatient [address] [facility] [address] 03/17/2021 12:00:00 AM EDT eCW1 ([facility]) Unknown [address] [facility], [place] [address] 03/16/2021 12:00:00 AM EDT eCW1 ([facility]) ([id number]) For Template Turner [address] [facility] [address] 03/10/2021 12:00:00 AM EDT eCW1 ([facility]) [facility]: [address], [place] [address], Ph. Attender: Leatha Wilson [facility] Medical 02/24/2021 12:00:00 AM EDT [place] ([facility]) ISABELL Ramirez: [address], [place] [address], Ph. Attender: Leatha Wilson [facility] Medical 02/24/2021 12:00:00 AM EDT [place] ([facility]) ISABELL Ramirez: [address], [place] [address], Ph. Attender: Leatha Wilson [facility] Medical 02/24/2021 12:00:00 AM EDT [place] ([facility]) ISABELL Ramirez: [address], [place] [address], Ph. Attender: Leatha Wilson [facility] Medical 02/24/2021 12:00:00 AM EDT [place] ([facility]) Outpatient [address] [facility] [address] 02/24/2021 12:00:00 AM EDT eCW1 ([facility]) [facility]: [address], [place] [address], Ph. Attender: Leatha Wilson [facility] Medical 02/24/2021 12:00:00 AM EDT [place] ([facility]) ([id number]) For Template Turner [address] [place] [address] 02/17/2021 12:00:00 AM EDT eCW1 ([facility]) [facility]: [address], [place] [address], Ph. Attender: Leatha Wilson [facility] Medical 02/16/2021 12:00:00 AM EDT [place] ([facility]) ISABELL Ramirez: [address], [place] [address], Ph. Attender: Leatha Wilson [facility] Medical 02/16/2021 12:00:00 AM EDT [place] ([facility]) YESENIA RamirezPAustin: [address], [place] [address], Ph. Attender: Leatha Wilson [facility] Medical 02/16/2021 12:00:00 AM EDT [place] ([facility]) ISABELL Ramirez: [address], [place] [address], Ph. Attender: Leatha Wilson [facility] Medical 02/16/2021 12:00:00 AM EDT [place] ([facility]) ISABELL Ramirez: [address], [place] [address], Ph. Attender: Leatha Wilson [facility] Medical 02/16/2021 12:00:00 AM EDT [place] ([facility]) ISABELL Ramirez: [address], [place] [address], Ph. Attender: Leatha Wilson [facility] Medical 02/16/2021 12:00:00 AM EDT [place] ([facility]) Unknown [address] [facility] [address] 02/03/2021 12:00:00 AM EDT eCW1 ([facility]) ([id number]) For Template Turner [address] [place] [address] 01/27/2021 12:00:00 AM EDT eCW1 ([facility]) ([id number]) For Template Turner [address] [place] [address] 01/19/2021 12:00:00 AM EDT eCW1 ([facility]) ([id number]) For Template Turner [address] [place] [address] 01/12/2021 12:00:00 AM EDT eCW1 ([facility]) ([id number]) For Template Turner [address] [place] [address] 01/06/2021 12:00:00 AM EDT eCW1 ([facility]) ([id number]) For Template Turner [address] [place] [address] 12/29/2020 12:00:00 AM EDT eCW1 ([facility]) ([id number]) For Template Turner [address] [place] [address] 12/23/2020 12:00:00 AM EDT eCW1 ([facility]) Outpatient Attender: PEGGY ROSE [facility] Office 12/01 02:45:00 PM EDT MEDENT ([facility] ([id number]) For Template Turner [address] [place], [place] [address] 12/09/2020 12:00:00 AM EDT eCW1 ([facility]) ([id number]) For Template Turner [address] [place] [address] 12/02/2020 12:00:00 AM EDT eCW1 ([facility]) ([id number]) For Template Turner [address] [place] [address] 11/23/2020 12:00:00 AM EDT eCW1 ([facility]) ([id number]) For Template Turner [address] [place] [address] 11/16/2020 12:00:00 AM EDT eCW1 ([facility]) Outpatient [address] [facility] [address] 11/08/2020 12:00:00 AM EST eCW1 ([facility]) Outpatient [address] [facility] [address] 11/01/2020 12:00:00 AM EST eCW1 ([facility]) Unknown [address] [facility] [address] 10/26/2020 12:00:00 AM EST eCW1 ([facility]) Unknown [address] [facility] [address] 10/25/2020 12:00:00 AM EST eCW1 ([facility]) Unknown [address] [facility] [address] 10/24/2020 12:00:00 AM EST eCW1 ([facility]) Outpatient [address] [facility] [address] 10/17/2020 12:00:00 AM EST eCW1 ([facility]) Unknown [address] [facility] [address] 10/14/2020 12:00:00 AM EST eCW1 ([facility]) Unknown [address] [facility] [address] 10/11/2020 12:00:00 AM EST eCW1 ([facility]) ([id number]) For Template Turner [facility] [place] [address] 10/07/2020 12:00:00 AM EST eCW1 ([facility]) ([id number]) For Template Turner [facility] [place] [address] 09/30/2020 12:00:00 AM EST eCW1 ([facility]) ([id number]) For Template Turner [address] [place] [address] 09/23/2020 12:00:00 AM EST eCW1 ([facility]) Outpatient [facility] [address] 09/14/2020 12:00:00 AM EST eCW1 ([facility]) Outpatient [facility] [address] 08/24/2020 12:00:00 AM EST eCW1 ([facility]) ([id number]) For Template Turner [facility] [place] [address] 08/17/2020 12:00:00 AM EST eCW1 ([facility]) Unknown [facility] [address] 08/16/2020 12:00:00 AM EST eCW1 ([facility]) ([id number]) For Template Turner [facility] [place] [address] 08/11/2020 12:00:00 AM EST eCW1 ([facility]) Outpatient Attender: Valente [facility] 01:45:00 PM EST MEDENT ([facility]) Unknown [address] [facility] [address] 08/08/2020 12:00:00 AM EST eCW1 ([facility]) Unknown [address] [facility] [address] 08/05/2020 12:00:00 AM EST eCW1 ([facility]) Unknown [address] [facility] [address] 08/03/2020 12:00:00 AM EST eCW1 ([facility]) ([id number]) For Template Turner [address] [place] [address] 08/03/2020 12:00:00 AM EST eCW1 ([facility]) Unknown [address] [facility] [place] [address] 08/02/2020 12:00:00 AM EST eCW1 ([facility]) Outpatient [address] [facility] [address] 07/25/2020 12:00:00 AM EST eCW1 ([facility]) Outpatient [address] [facility] [address] 07/15/2020 12:00:00 AM EST [facility]CW1 [facility]) (WND STRTCH) Stretcher Required Patients [address] [place] [address] 07/08/2020 12:00:00 AM EST eCW1 ([facility]) Unknown [address] [facility] [address] 07/08/2020 12:00:00 AM EST eCW1 ([facility]) Unknown [address] [facility] [address] 07/04/2020 12:00:00 AM EST eCW1 ([facility]) (WND STRTCH) Stretcher Required Patients [address] [place] [address] 07/01/2020 12:00:00 AM EDT eCW1 ([facility]) Outpatient [address] [facility] [address] 06/28/2020 12:00:00 AM EDT eCW1 ([facility]) Unknown [address] [facility] [address] 06/27/2020 12:00:00 AM EDT eCW1 ([facility]) Outpatient [address] [facility] [address] 06/24/2020 12:00:00 AM EDT eCW1 ([facility]) ([id number]) For Template Turner [address] [place] [address] 06/09/2020 12:00:00 AM EDT eCW1 ([facility]) Immunizations Vaccine Date Status Description Data Source(s) COVID-19, mRNA, LNP-S, PF, 100 mcg/0.5 mL dose 02/02/2021 12 :00:00 AM EDT completed 02/02/2021 [place] ([facility]) COVID-19, mRNA, LNP-S, PF, 100 mcg/0.5 mL dose 02/02/2021 12 :00:00 AM EDT completed 02/02/2021 [place] ([facility]) COVID-19, mRNA, LNP-S, PF, 100 mcg/0.5 mL dose 02/02/2021 12 :00:00 AM EDT completed 02/02/2021 [place] ([facility]) COVID-19, mRNA, LNP-S, PF, 100 mcg/0.5 mL dose 02/02/2021 12 :00:00 AM EDT completed 02/02/2021 [place] ([facility]) COVID-19, mRNA, LNP-S, PF, 100 mcg/0.5 mL dose 02/02/2021 12 :00:00 AM EDT completed 02/02/2021 [place] ([facility]) COVID-19, mRNA, LNP-S, PF, 100 mcg/0.5 mL dose 02/02/2021 12 :00:00 AM EDT completed 02/02/2021 [place] ([facility]) COVID-19 VACCINE Moderna 02/02/2021 12:00:00 AM EDT completed [facility] Complete: YESThis Data wa s Submitted to [facility] Via [employer]. COVID-19, mRNA, LNP-S, PF, 100 mcg/0.5 mL dose 01/05/2021 12 :00:00 AM EDT completed 01/05/2021 [facility]) COVID-19, mRNA, LNP-S, PF, 100 mcg/0.5 mL dose 01/05/2021 12 :00:00 AM EDT completed 01/05/2021 [facility]) COVID-19, mRNA, LNP-S, PF, 100 mcg/0.5 mL dose 01/05/2021 12 :00:00 AM EDT completed 01/05/2021 [place] ([facility]) COVID-19, mRNA, LNP-S, PF, 100 mcg/0.5 mL dose 01/05/2021 12 :00:00 AM EDT completed 01/05/2021 [place] ([facility]) COVID-19, mRNA, LNP-S, PF, 100 mcg/0.5 mL dose 01/05/2021 12 :00:00 AM EDT completed 01/05/2021 [place] ([facility]) COVID-19, mRNA, LNP-S, PF, 100 mcg/0.5 mL dose 01/05/2021 12 :00:00 AM EDT completed 01/05/2021 [place] ([facility]) COVID-19 VACCINE Moderna 01/05/2021 12:00:00 AM EDT completed [employer] Vaccine Series Complete: NOThis Data was Submitted to [facility] Via [employer]. influenza, recombinant, quadrIvalent,injectable, prese rvative free 06/09/2020 01:10:00 PM EDT completed eCW1 ([facility]) influenza, recombinant, quadrIvalent,injectable, prese rvative free 06/09/2020 01:10:00 PM EDT completed eCW1 ([facility]) influenza, recombinant, quadrIvalent,injectable, prese rvative free 06/09/2020 01:10:00 PM EDT completed eCW1 ([facility]) influenza, recombinant, quadrIvalent,injectable, prese rvative free 06/09/2020 01:10:00 PM EDT completed eCW1 ([facility]) influenza, recombinant, quadrIvalent,injectable, prese rvative free 06/09/2020 01:10:00 PM EDT completed eCW1 ([facility]) influenza, recombinant, quadrIvalent,injectable, prese rvative free 06/09/2020 01:10:00 PM EDT completed eCW1 ([facility]) influenza, recombinant, quadrIvalent,injectable, prese rvative free 06/09/2020 01:10:00 PM EDT completed eCW1 ([facility]) influenza, recombinant, quadrIvalent,injectable, prese rvative free 06/09/2020 01:10:00 PM EDT completed eCW1 ([facility]) influenza, recombinant, quadrIvalent,injectable, prese rvative free 06/09/2020 01:10:00 PM EDT completed eCW1 ([facility]) influenza, recombinant, quadrIvalent,injectable, prese rvative free 06/09/2020 01:10:00 PM EDT completed eCW1 ([facility]) influenza, recombinant, quadrIvalent,injectable, prese rvative free 06/09/2020 01:10:00 PM EDT completed eCW1 ([facility]) influenza, recombinant, quadrIvalent,injectable, prese rvative free 06/09/2020 01:10:00 PM EDT completed eCW1 ([facility]) influenza, recombinant, quadrIvalent,injectable, prese rvative free 06/09/2020 01:10:00 PM EDT completed eCW1 ([facility]) influenza, recombinant, quadrIvalent,injectable, prese rvative free 06/09/2020 01:10:00 PM EDT completed eCW1 ([facility]) influenza, recombinant, quadrIvalent,injectable, prese rvative free 06/09/2020 01:10:00 PM EDT completed eCW1 ([facility]) influenza, recombinant, quadrIvalent,injectable, prese rvative free 06/09/2020 01:10:00 PM EDT completed eCW1 ([facility]) influenza, recombinant, quadrIvalent,injectable, prese rvative free 06/09/2020 01:10:00 PM EDT completed eCW1 ([facility]) influenza, recombinant, quadrIvalent,injectable, prese rvative free 06/09/2020 01:10:00 PM EDT completed eCW1 ([facility]) influenza, recombinant, quadrIvalent,injectable, prese rvative free 06/09/2020 01:10:00 PM EDT completed eCW1 ([facility]) influenza, recombinant, quadrIvalent,injectable, prese rvative free 06/09/2020 01:10:00 PM EDT completed eCW1 ([facility]) influenza, recombinant, quadrIvalent,injectable, prese rvative free 06/09/2020 01:10:00 PM EDT completed eCW1 ([facility]) influenza, recombinant, quadrIvalent,injectable, prese rvative free 06/09/2020 01:10:00 PM EDT completed eCW1 ([facility]) influenza, recombinant, quadrIvalent,injectable, prese rvative free 06/09/2020 01:10:00 PM EDT completed eCW1 ([facility]) influenza, recombinant, quadrIvalent,injectable, prese rvative free 06/09/2020 01:10:00 PM EDT completed eCW1 ([facility]) influenza, recombinant, quadrIvalent,injectable, prese rvative free 06/09/2020 01:10:00 PM EDT completed eCW1 ([facility]) influenza, recombinant, quadrIvalent,injectable, prese rvative free 06/09/2020 01:10:00 PM EDT completed eCW1 ([facility]) influenza, recombinant, quadrIvalent,injectable, prese rvative free 06/09/2020 01:10:00 PM EDT completed eCW1 ([facility]) influenza, recombinant, quadrIvalent,injectable, prese rvative free 06/09/2020 01:10:00 PM EDT completed eCW1 ([facility]) influenza, recombinant, quadrIvalent,injectable, prese rvative free 06/09/2020 01:10:00 PM EDT completed eCW1 ([facility]) influenza, recombinant, quadrIvalent,injectable, prese rvative free 06/09/2020 01:10:00 PM EDT completed eCW1 ([facility]) influenza, recombinant, quadrIvalent,injectable, prese rvative free 06/09/2020 01:10:00 PM EDT completed eCW1 ([facility]) influenza, recombinant, quadrIvalent,injectable, prese rvative free 06/09/2020 01:10:00 PM EDT completed eCW1 ([facility]) influenza, recombinant, quadrIvalent,injectable, prese rvative free 06/09/2020 01:10:00 PM EDT completed eCW1 ([facility]) influenza, recombinant, quadrIvalent,injectable, prese rvative free 06/09/2020 01:10:00 PM EDT completed eCW1 ([facility]) influenza, recombinant, quadrIvalent,injectable, prese rvative free 06/09/2020 01:10:00 PM EDT completed eCW1 ([facility]) influenza, recombinant, quadrIvalent,injectable, prese rvative free 06/09/2020 01:10:00 PM EDT completed eCW1 ([facility]) influenza, recombinant, quadrIvalent,injectable, prese rvative free 06/09/2020 01:10:00 PM EDT completed eCW1 ([facility]) influenza, recombinant, quadrIvalent,injectable, prese rvative free 06/09/2020 01:10:00 PM EDT completed eCW1 ([facility]) influenza, recombinant, quadrIvalent,injectable, prese rvative free 06/09/2020 01:10:00 PM EDT completed eCW1 ([facility]) influenza, recombinant, quadrIvalent,injectable, prese rvative free 06/09/2020 01:10:00 PM EDT completed eCW1 ([facility]) influenza, recombinant, quadrIvalent,injectable, prese rvative free 06/09/2020 01:10:00 PM EDT completed eCW1 ([facility]) influenza, recombinant, quadrIvalent,injectable, prese rvative free 06/09/2020 01:10:00 PM EDT completed eCW1 ([facility]) influenza, recombinant, quadrIvalent,injectable, prese rvative free 06/09/2020 01:10:00 PM EDT completed eCW1 ([facility]) influenza, recombinant, quadrIvalent,injectable, prese rvative free 06/09/2020 01:10:00 PM EDT completed eCW1 ([facility]) influenza, recombinant, quadrIvalent,injectable, prese rvative free 06/09/2020 01:10:00 PM EDT completed eCW1 ([facility]) influenza, recombinant, quadrIvalent,injectable, prese rvative free 06/09/2020 01:10:00 PM EDT completed eCW1 ([facility]) influenza, recombinant, quadrIvalent,injectable, prese rvative free 06/09/2020 01:10:00 PM EDT completed eCW1 ([facility]) influenza, recombinant, quadrIvalent,injectable, prese rvative free 06/09/2020 01:10:00 PM EDT completed eCW1 ([facility]) influenza, recombinant, quadrIvalent,injectable, prese rvative free 06/09/2020 01:10:00 PM EDT completed eCW1 ([facility]) influenza, recombinant, quadrIvalent,injectable, prese rvative free 06/09/2020 01:10:00 PM EDT completed eCW1 ([facility]) influenza, recombinant, quadrIvalent,injectable, prese rvative free 06/09/2020 01:10:00 PM EDT completed eCW1 ([facility]) influenza, recombinant, quadrIvalent,injectable, prese rvative free 06/09/2020 01:10:00 PM EDT completed eCW1 ([facility]) influenza, recombinant, quadrIvalent,injectable, prese rvative free 06/09/2020 01:10:00 PM EDT completed eCW1 ([facility]) influenza, recombinant, quadrIvalent,injectable, prese rvative free 06/09/2020 01:10:00 PM EDT completed eCW1 ([facility]) influenza, recombinant, quadrIvalent,injectable, prese rvative free 06/09/2020 01:10:00 PM EDT completed eCW1 ([facility]) influenza, recombinant, quadrIvalent,injectable, prese rvative free 06/09/2020 01:10:00 PM EDT completed eCW1 ([facility]) influenza, recombinant, quadrIvalent,injectable, prese rvative free 06/09/2020 01:10:00 PM EDT completed eCW1 ([facility]) influenza, recombinant, quadrIvalent,injectable, prese rvative free 06/09/2020 01:10:00 PM EDT completed eCW1 ([facility]) influenza, recombinant, quadrIvalent,injectable, prese rvative free 06/09/2020 01:10:00 PM EDT completed eCW1 ([facility]) influenza, recombinant, quadrIvalent,injectable, prese rvative free 06/09/2020 01:10:00 PM EDT completed eCW1 ([facility]) influenza, recombinant, quadrIvalent,injectable, prese rvative free 06/09/2020 01:10:00 PM EDT completed eCW1 ([facility]) influenza, recombinant, quadrIvalent,injectable, prese rvative free 06/09/2020 01:10:00 PM EDT completed eCW1 ([facility]) influenza, recombinant, quadrIvalent,injectable, prese rvative free 06/09/2020 01:10:00 PM EDT completed eCW1 ([facility]) influenza, recombinant, quadrIvalent,injectable, prese rvative free 06/09/2020 01:10:00 PM EDT completed eCW1 ([facility]) influenza, recombinant, quadrIvalent,injectable, prese rvative free 06/09/2020 01:10:00 PM EDT completed eCW1 ([facility]) influenza, recombinant, quadrIvalent,injectable, prese rvative free 06/09/2020 01:10:00 PM EDT completed eCW1 ([facility]) influenza, recombinant, quadrIvalent,injectable, prese rvative free 06/09/2020 01:10:00 PM EDT completed eCW1 ([facility]) influenza, recombinant, quadrIvalent,injectable, prese rvative free 06/09/2020 01:10:00 PM EDT completed eCW1 ([facility]) influenza, recombinant, quadrIvalent,injectable, prese rvative free 06/09/2020 01:10:00 PM EDT completed eCW1 ([facility]) influenza, recombinant, quadrIvalent,injectable, prese rvative free 06/09/2020 01:10:00 PM EDT completed eCW1 ([facility]) influenza, recombinant, quadrIvalent,injectable, prese rvative free 06/09/2020 01:10:00 PM EDT completed eCW1 ([facility]) Medications Medication Brand Name Start Date Product [...] / nitrofurantoin, monohydrate 75 MG Oral Capsule [place] ([facility]) Mupirocin 0.02 MG/MG Topical Ointment mu pirocin 2 % topical ointment APPLY TO RIGHT ON THE LEG ONCE DAILY mupirocin 2 % topical ointment APPLY TO RIGHT ON THE LEG ONCE DAILY completed mupiroc in 0.02 MG/MG Topical Ointment [place] ([facility]) Cephalexin 500 MG Oral Capsule cephalexi n 500 mg capsule TAKE ONE CAPSULE BY MOUTH FOUR TIMES DAILY cephalexin 500 mg capsule TAKE ONE CAPSU LE BY MOUTH FOUR TIMES DAILY completed cephalexin 500 MG Oral Capsule [facility]) Mupirocin 0.02 MG/MG Topical Ointment mu pirocin 2 % topical ointment APPLY TO RIGHT ON THE LEG ONCE DAILY mupirocin 2 % topical ointment APPLY TO RIGHT ON THE LEG ONCE DAILY completed mupiroc in 0.02 MG/MG Topical Ointment [place] ([facility]) Furosemide 20 MG Oral Tablet furosemide 20 mg tablet TAKE ONE TABLET BY MOUTH ONCE DAILY furosemide 20 mg tablet TAKE ONE TABLET BY MOUTH ONCE DAILY completed furosemide 20 MG Oral Tab let [place] ([facility]) Mupirocin 0.02 MG/MG Topical Ointment mu pirocin 2 % topical ointment APPLY TO RIGHT ON THE LEG ONCE DAILY mupirocin 2 % topical ointment APPLY TO RIGHT ON THE LEG ONCE DAILY completed mupiroc in 0.02 MG/MG Topical Ointment [place] ([facility]) Furosemide 20 MG Oral Tablet furosemide 20 mg tablet TAKE ONE TABLET BY MOUTH ONCE DAILY furosemide 20 mg tablet TAKE ONE TABLET BY MOUTH ONCE DAILY completed furosemide 20 MG Oral Tab let [place] ([facility]) Ibuprofen 600 MG Oral Tablet ibuprofen 6 00 mg tablet TAKE ONE TABLET BY MOUTH THREE TIMES DAILY FOR 10 DAYS ibuprofen 600 mg tablet TAKE ONE TABLET BY MOUTH THREE TIMES DAILY FOR 10 DAYS complete d ibuprofen 600 MG Oral Tablet [place] ([facility]) Furosemide 20 MG Oral Tablet furosemide 20 mg tablet TAKE ONE TABLET BY MOUTH ONCE DAILY furosemide 20 mg tablet TAKE ONE TABLET BY MOUTH ONCE DAILY completed furosemide 20 MG Oral Tab let [place] ([facility]) Ibuprofen 600 MG Oral Tablet ibuprofen 6 00 mg tablet TAKE ONE TABLET BY MOUTH THREE TIMES DAILY FOR 10 DAYS ibuprofen 600 mg tablet TAKE ONE TABLET BY MOUTH THREE TIMES DAILY FOR 10 DAYS complete d ibuprofen 600 MG Oral Tablet [place] ([facility]) Fluconazole 150 MG Oral Tablet fluconazo le 150 mg tablet TAKE ONE TABLET BY MOUTH ONCE A WEEK fluconazole 150 mg tablet TAKE ONE TABLE T BY MOUTH ONCE A WEEK completed fluconazole 150 MG Oral Tablet [place] ([facility]) Fluconazole 150 MG Oral Tablet fluconazo le 150 mg tablet TAKE ONE TABLET BY MOUTH ONCE A WEEK fluconazole 150 mg tablet TAKE ONE TABLE T BY MOUTH ONCE A WEEK completed fluconazole 150 MG Oral Tablet [place] ([facility]) Cephalexin 500 MG Oral Capsule cephalexi n 500 mg capsule TAKE ONE CAPSULE BY MOUTH FOUR TIMES DAILY cephalexin 500 mg capsule TAKE ONE CAPSU LE BY MOUTH FOUR TIMES DAILY completed cephalexin 500 MG Oral Capsule [place] ([facility]) Cephalexin 500 MG Oral Capsule cephalexi n 500 mg capsule TAKE ONE CAPSULE BY MOUTH FOUR TIMES DAILY cephalexin 500 mg capsule TAKE ONE CAPSU LE BY MOUTH FOUR TIMES DAILY completed cephalexin 500 MG Oral Capsule [place] ([facility]) Cephalexin 500 MG Oral Capsule cephalexi n 500 mg capsule TAKE ONE CAPSULE BY MOUTH FOUR TIMES DAILY cephalexin 500 mg capsule TAKE ONE CAPSU LE BY MOUTH FOUR TIMES DAILY completed cephalexin 500 MG Oral Capsule [place] ([facility]) NITROFURANTOIN, MACROCRYSTALS 25 MG / Ni trofurantoin, Monohydrate 75 MG Oral Capsule nitrofurantoin monohydrate/macrocrystals 100 mg capsule TAKE ONE CAPSULE BY MOUTH TWICE DAILY nitrofurantoin monohydrate/macrocrystals 100 mg capsule TAKE ONE CAPSULE BY MOUTH TWICE DAILY completed nitrofurantoin, macrocrystals 25 MG / nitrofurantoin, monohydrate 75 MG Oral Capsule [place] ([facility]) NITROFURANTOIN, MACROCRYSTALS 25 MG / Ni trofurantoin, Monohydrate 75 MG Oral Capsule nitrofurantoin monohydrate/macrocrystals 100 mg capsule TAKE ONE CAPSULE BY MOUTH TWICE DAILY nitrofurantoin monohydrate/macrocrystals 100 mg capsule TAKE ONE CAPSULE BY MOUTH TWICE DAILY completed nitrofurantoin, macrocrystals 25 MG / nitrofurantoin, monohydrate 75 MG Oral Capsule [place] ([facility]) Mupirocin 0.02 MG/MG Topical Ointment mu pirocin 2 % topical ointment APPLY TO RIGHT ON THE LEG ONCE DAILY mupirocin 2 % topical ointment APPLY TO RIGHT ON THE LEG ONCE DAILY completed mupiroc in 0.02 MG/MG Topical Ointment [place] ([facility]) Ibuprofen 600 MG Oral Tablet ibuprofen 6 00 mg tablet TAKE ONE TABLET BY MOUTH THREE TIMES DAILY FOR 10 DAYS ibuprofen 600 mg tablet TAKE ONE TABLET BY MOUTH THREE TIMES DAILY FOR 10 DAYS complete d ibuprofen 600 MG Oral Tablet [place] ([facility]) NITROFURANTOIN, MACROCRYSTALS 25 MG / Ni trofurantoin, Monohydrate 75 MG Oral Capsule nitrofurantoin monohydrate/macrocrystals 100 mg capsule TAKE ONE CAPSULE BY MOUTH TWICE DAILY nitrofurantoin monohydrate/macrocrystals 100 mg capsule TAKE ONE CAPSULE BY MOUTH TWICE DAILY completed nitrofurantoin, macrocrystals 25 MG / nitrofurantoin, monohydrate 75 MG Oral Capsule [place] ([facility]) Fluconazole 150 MG Oral Tablet fluconazo le 150 mg tablet TAKE ONE TABLET BY MOUTH ONCE A WEEK fluconazole 150 mg tablet TAKE ONE TABLE T BY MOUTH ONCE A WEEK completed fluconazole 150 MG Oral Tablet [place] ([facility]) Ibuprofen 600 MG Oral Tablet ibuprofen 6 00 mg tablet TAKE ONE TABLET BY MOUTH THREE TIMES DAILY FOR 10 DAYS ibuprofen 600 mg tablet TAKE ONE TABLET BY MOUTH THREE TIMES DAILY FOR 10 DAYS complete [facility]con[facility] MG Oral Tablet fluconazo le 150 mg tablet TAKE ONE TABLET BY MOUTH ONCE A WEEK fluconazole 150 mg tablet TAKE ONE TABLE T BY MOUTH ONCE A WEEK completed fluconazole 150 MG Oral Tablet [place] ([facility]) Fluconazole 150 MG Oral Tablet fluconazo le 150 mg tablet TAKE ONE TABLET BY MOUTH ONCE A WEEK fluconazole 150 mg tablet TAKE ONE TABLE T BY MOUTH ONCE A WEEK completed fluconazole 150 MG Oral Tablet [facility]) Mupirocin 0.02 MG/MG Topical Ointment mu pirocin 2 % topical ointment APPLY TO RIGHT ON THE LEG ONCE DAILY mupirocin 2 % topical ointment APPLY TO RIGHT ON THE LEG ONCE DAILY completed mupiroc in 0.02 MG/MG Topical Ointment [place] ([facility]) Furosemide 20 MG Oral Tablet furosemide 20 mg tablet TAKE ONE TABLET BY MOUTH ONCE DAILY furosemide 20 mg tablet TAKE ONE TABLET BY MOUTH ONCE DAILY completed furosemide 20 MG Oral Tab let [facility]) Fluconazole 150 MG Oral Tablet fluconazo le 150 mg tablet TAKE ONE TABLET BY MOUTH ONCE A WEEK fluconazole 150 mg tablet TAKE ONE TABLE T BY MOUTH ONCE A WEEK completed fluconazole 150 MG Oral Tablet [place] ([facility]) Cephalexin 500 MG Oral Capsule cephalexi n 500 mg capsule TAKE ONE CAPSULE BY MOUTH FOUR TIMES DAILY cephalexin 500 mg capsule TAKE ONE CAPSU LE BY MOUTH FOUR TIMES DAILY completed cephalexin 500 MG Oral Capsule [place] ([facility]) NITROFURANTOIN, MACROCRYSTALS 25 MG / Ni trofurantoin, Monohydrate 75 MG Oral Capsule nitrofurantoin monohydrate/macrocrystals 100 mg capsule TAKE ONE CAPSULE BY MOUTH TWICE DAILY nitrofurantoin monohydrate/macrocrystals 100 mg capsule TAKE ONE CAPSULE BY MOUTH TWICE DAILY completed nitrofurantoin, macrocrystals 25 MG / nitrofurantoin, monohydrate 75 MG Oral Capsule [place] ([facility]) Furosemide 20 MG Oral Tablet furosemide 20 mg tablet TAKE ONE TABLET BY MOUTH ONCE DAILY furosemide 20 mg tablet TAKE ONE TABLET BY MOUTH ONCE DAILY completed furosemide 20 MG Oral Tab let [place] ([facility]) Mupirocin 0.02 MG/MG Topical Ointment mu pirocin 2 % topical ointment APPLY TO RIGHT ON THE LEG ONCE DAILY mupirocin 2 % topical ointment APPLY TO RIGHT ON THE LEG ONCE DAILY completed mupiroc in 0.02 MG/MG Topical Ointment [place] ([facility]) Cephalexin 500 MG Oral Capsule cephalexi n 500 mg capsule TAKE ONE CAPSULE BY MOUTH FOUR TIMES DAILY cephalexin 500 mg capsule TAKE ONE CAPSU LE BY MOUTH FOUR TIMES DAILY completed cephalexin 500 MG Oral Capsule [place] ([facility]) NITROFURANTOIN, MACROCRYSTALS 25 MG / Ni trofurantoin, Monohydrate 75 MG Oral Capsule nitrofurantoin monohydrate/macrocrystals 100 mg capsule TAKE ONE CAPSULE BY MOUTH TWICE DAILY nitrofurantoin monohydrate/macrocrystals 100 mg capsule TAKE ONE CAPSULE BY MOUTH TWICE DAILY completed nitrofurantoin, macrocrystals 25 MG / nitrofurantoin, monohydrate 75 MG Oral Capsule [place] ([facility]) Ibuprofen 600 MG Oral Tablet ibuprofen 6 00 mg tablet TAKE ONE TABLET BY MOUTH THREE TIMES DAILY FOR 10 DAYS ibuprofen 600 mg tablet TAKE ONE TABLET BY MOUTH THREE TIMES DAILY FOR 10 DAYS complete d ibuprofen 600 MG Oral Tablet [place] ([facility]) Furosemide 20 MG Oral Tablet furosemide 20 mg tablet TAKE ONE TABLET BY MOUTH ONCE DAILY furosemide 20 mg tablet TAKE ONE TABLET BY MOUTH ONCE DAILY completed furosemide 20 MG Oral Tab let [place] ([facility]) Ibuprofen 600 MG Oral Tablet ibuprofen 6 00 mg tablet TAKE ONE TABLET BY MOUTH THREE TIMES DAILY FOR 10 DAYS ibuprofen 600 mg tablet TAKE ONE TABLET BY MOUTH THREE TIMES DAILY FOR 10 DAYS complete d ibuprofen 600 MG Oral Tablet [place] ([facility]) Insurance Providers Payer name Policy type / Coverage type Policy ID Covered democrat ID Covered democrat's relationship to turner Policy Turner Plan Information [employer] [place] 332/834 [id number] SP [id number] [facility] [facility] 303/803 [id number] SP [id number] [employer] [facility] 303/803 [id number] SP [id number] [place] [place] 332/834 [id number] SP [id number] BS [place] B [id number] Self MEDICARE [id number] SP [id number] A MEDICARE [id number] SP [id number] A [id number] A MEDICARE COMPLETE [id number] SP [id number] MEDICARE COMPLETE [id number] SP [id number] MEDICAID [id number] SP [id number] MEDICARE COMPLETE [id number] SP [id number] [facility] MEDICARE [id number] [facility] MEDICARE [id number] ANS-Medicare Part B [id number] MEDICAID [id number] SP [id number] ANS-Medicare Part B [id number] [facility]-Medicaid [id number] ANSI-Commercial [id number] ANSI-Medicare Part B [id number] ANSI-Medicare Part B [id number] ANSI-Commercial [id number] ANSI-Medicare Part B [id number] ANSI-Medicaid [id number] ANSI-Medicaid [id number] ANSI-Commercial [id number] ANSI-Medicare Part B [id number] ANSI-Medicare Part B [id number] ANSI-Medicare Part B [id number] ANSI-Medicare Part B [id number] ANSI-Medicaid [id number] ANSI-Commercial [id number] ANSI-Medicare Part B [id number] [facility]-Medicaid [id number] ANSI-Commercial [id number] ANS-Medicare Part B [id number] [facility]-Medicaid [id number] ANSI-Medicare Part B [id number] ANSI-Medicare Part B [id number] ANSI-Commercial [id number] ANSI-Medicaid [id number] ANSI-Medicare Part B [id number] ANSI-Commercial [id number] ANSI-Medicare Part B [id number] ANSI-Medicare Part B [id number] ANSI-Commercial [id number] ANSI-Medicare Part B [id number] ANSI-Medicaid [id number] ANSI-Medicaid [id number] ANSI-Medicare Part B [id number] ANSI-Medicare Part B [id number] ANSI-Commercial [id number] ANSI-Medicaid [id number] ANSI-Medicare Part B [id number] ANSI-Medicare Part B [id number] ANSI-Commercial [id number] ANSI-Medicare Part B [id number] ANSI-Medicaid [id number] ANSI-Commercial [id number] ANSI-Medicare Part B [id number] ANSI-Commercial [id number] ANSI-Medicare Part B [id number] ANSI-Medicare Part B [id number] ANSI-Medicaid [id number] ANSI-Commercial [id number] ANSI-Medicare Part B [id number] ANSI-Medicare Part B [id number] ANSI-Medicaid [id number] Medicaid [facility] Part B [id number] Self [id number] [facility]) Commercial [id number] Self [id number] ANSI-Medicaid [id number] ANSI-Commercial [id number] ANSI-Medicare Part B [id number] ANSI-Medicare Part B [id number] ANSI-Medicare Part B [id number] ANSI-Commercial [id number]-9bgg-[id number]-1xrt-[id number] ANSI-Medicare Part B [id number] ANSI-Medicaid [id number] ANSI-Medicare Part B [id number] ANSI-Medicaid [id number] ANSI-Medicare Part B [id number] ANSI-Commercial [id number]-[id number]-[id number] [facility] [id number] SP [id number] MEDICARE [id number] SP [id number] A MEDICARE [id number] SP [id number] A [facility] [facility] 303/803 [id number] SP [id number] [facility] 303/803 [id number] SP [id number] [facility] [id number] SP [id number] ANSI-Medicare Part B [id number] ANSI-Commercial [id number]-[id number]-blu3-6go7-[id number] ANSI-Medicare Part B [id number] ANSI-Commercial [id number] ANSI-Medicare Part B [id number] ANSI-Medicare Part B [id number] ANSI-Medicare Part B [id number] ANSI-Commercial [id number] ANSI-Medicare Part B [id number] [facility] Commercial [id number] Self [id number] ANSI-Medicare Part B [id number] ANSI-Commercial [id number] ANSI-Medicare Part B [id number] ANSI-Medicare Part B [id number] ANSI-Commercial [id number] ANSI-Medicare Part B [id number] ANSI-Medicare Part B [id number] ANSI-Commercial [id number] ANSI-Medicare Part B [id number] ANSI-Medicare Part B [id number] ANSI-Commercial [id number] ANSI-Medicare Part B [id number] SELF PAY [facility] Commercial [id number] Self [id number] ANSI-Medicare Part B [id number] ANSI-Commercial [id number] ANSI-Medicare Part B [id number] ANSI-Commercial [id number] ANSI-Medicare Part B [id number] ANSI-Medicare Part B [id number] ANSI-Medicare Part B [id number] ANSI-Commercial [id number] ANSI-Medicare Part B [id number] [facility] Commercial [id number] Self [id number] ANSI-Commercial [id number] ANSI-Medicare Part B [id number] [place] [id number] SP [id number] A [facility] Commercial [id number] Self [id number] ANSI-Medicare Part B [id number] ANSI-Commercial [id number] ANSI-Medicare Part B [id number] [place] PPO 302/307 [id number] SP [id number] [facility] [id number] SP [id number] [employer] [facility] Medigap Part B [id number] Self [id number] [facility] Medicare Commercial [id number] Self [id number] [facility] [id number] Self [id number] [employer] [facility] Medigap Part B [id number] Self [id number] [facility] Medicare Commercial [id number] Self [id number] [employer] [facility] Medigap Part B [id number] Self [id number] [facility] Medicare Commercial [id number] Self [id number] [facility] [id number] SP [id number] Medicare Dme Medigap Part B [id number] Self Medicare Medicare Primary [id number] Self ANSI-Medicare Part B [id number] MEDICARE COMPLETE [id number] SP [id number] MEDICARE COMPLETE [id number] SP [id number] MEDICARE [id number] SP [id number] MEDICARE COMPLETE [id number] SP [id number] MEDICARE COMPLETE [id number] SP [id number] EMEDNY [id number] SP [id number] MEDICARE COMPLETE [id number] SP [id number] ANSI-Medicare Part B [id number] ANSI-Medicaid [id number] ANSI-Medicare Part B [id number] ANSI-Commercial [id number] ANSI-Commercial [id number] ANSI-Medicare Part B [id number] ANSI-Medicaid [id number] Problems, Conditions, and Diagnoses Code Display Name Description Problem Type Effective Dates Data Source(s) 674373087 Pain in left lower limb Pain in Left Lower Limb Proble m 04/24/2021 12:00:00 AM EDT [place] ([facility]) [id number] Pancytopenia Pancytopenia Problem 04/24/2021 12:00:00 A M EDT [place] ([facility]) [id number] Pain in left lower limb Pain in Left Lower Limb Proble m 04/24/2021 12:00:00 AM EDT [place] ([facility]) [id number] Pancytopenia Pancytopenia Problem 04/24/2021 12:00:00 A M EDT [place] ([facility]) [id number] Pain in left lower limb Pain in Left Lower Limb Proble m 04/24/2021 12:00:00 AM EDT [place] ([facility]) [id number] Pancytopenia Pancytopenia Problem 04/24/2021 12:00:00 A M EDT [place] ([facility]) 33449196 Chronic ulcer of lower extremity Chronic Ulcer o f Lower Extremity Problem 04/20/2021 12:00:00 AM EDT [place] ([facility]) 22765827 Atrial fibrillation Atrial Fibrillation Problem 0 04/20/2021 12:00:00 AM EDT [place] ([facility]) 70211884 Chronic ulcer of lower extremity Chronic Ulcer o f Lower Extremity Problem 04/20/2021 12:00:00 AM EDT [place] ([facility]) 84594234 Atrial fibrillation Atrial Fibrillation Problem 0 04/20/2021 12:00:00 AM EDT [place] ([facility]) 40095932 Chronic ulcer of lower extremity Chronic Ulcer o f Lower Extremity Problem 04/20/2021 12:00:00 AM EDT [place] ([facility]) 76901037 Atrial fibrillation Atrial Fibrillation Problem 0 04/20/2021 12:00:00 AM EDT [place] ([facility]) 90327106 Nicotine dependence Nicotine Dependence Problem 0 02/19/2021 12:00:00 AM EDT [place] ([facility]) 810799210 Type II diabetes mellitus uncontrolled T ype II Diabetes Mellitus Uncontrolled Problem 02/19/2021 12:00:00 AM EDT [place] ([facility]) 14701088 Nicotine dependence Nicotine Dependence Problem 0 02/19/2021 12:00:00 AM EDT [place] ([facility]) 488004434 Type II diabetes mellitus uncontrolled T ype II Diabetes Mellitus Uncontrolled Problem 02/19/2021 12:00:00 AM EDT [place] ([facility]) 21040936 Nicotine dependence Nicotine Dependence Problem 0 02/19/2021 12:00:00 AM EDT [place] ([facility]) 739011944 Type II diabetes mellitus uncontrolled T ype II Diabetes Mellitus Uncontrolled Problem 02/19/2021 12:00:00 AM EDT [place] ([facility]) 05163290 Nicotine dependence Nicotine Dependence Problem 0 02/19/2021 12:00:00 AM EDT [place] ([facility]) 096462518 Type II diabetes mellitus uncontrolled T ype II Diabetes Mellitus Uncontrolled Problem 02/19/2021 12:00:00 AM EDT [place] ([facility]) 80322942 Nicotine dependence Nicotine Dependence Problem 0 02/19/2021 12:00:00 AM EDT [place] ([facility]) 023794752 Type II diabetes mellitus uncontrolled T ype II Diabetes Mellitus Uncontrolled Problem 02/19/2021 12:00:00 AM EDT [place] ([facility]) 85656721 Nicotine dependence Nicotine Dependence Problem 0 02/19/2021 12:00:00 AM EDT [place] ([facility]) 409014155 Type II diabetes mellitus uncontrolled T ype II Diabetes Mellitus Uncontrolled Problem 02/19/2021 12:00:00 AM EDT [place] ([facility]) B35.1 Onychomycosis Onychomycosis Problem 12/28/2020 12:00:00 AM EDT [facility] ([facility] 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 [facility] 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 [...] view 03/31/2021 12:00:00 AM ED T [place] ([facility]) XR, ribs, unilateral, 2 view 03/31/2021 12:00:00 AM ED T [place] ([facility]) XR, ribs, unilateral, 2 view 03/31/2021 12:00:00 AM ED T [place] ([facility]) Medication: 4% Lidocaine topical cream (Anecream) 30 gm 03/31/2021 12:00:00 AM EDT eCW1 ([facility]) XR, ribs, unilateral, 2 view 03/31/2021 12:00:00 AM ED T [place] ([facility]) Medication: 4% Lidocaine topical cream (Anecream) 30 gm 03/17/2021 12:00:00 AM EDT eCW1 ([facility]) Medication: 4% Lidocaine topical cream (Anecream) 30 gm 03/10/2021 12:00:00 AM EDT eCW1 ([facility]) Medication: 2% Lidocaine intradermal 02/24/2021 12:00: 00 AM EDT eCW1 ([facility]) Medication: 4% Lidocaine topical cream (Anecream) 30 gm 02/24/2021 12:00:00 AM EDT eCW1 ([facility]) Medication: 4% Lidocaine topical cream (Anecream) 30 gm 02/17/2021 12:00:00 AM EDT eCW1 ([facility]) XR, ribs, unilateral, 2 view 02/16/2021 12:00:00 AM ED T [place] ([facility]) XR, ribs, unilateral, 2 view 02/16/2021 12:00:00 AM ED T [place] ([facility]) XR, ribs, unilateral, 2 view 02/16/2021 12:00:00 AM ED T [place] ([facility]) XR, ribs, unilateral, 2 view 02/16/2021 12:00:00 AM ED T [place] ([facility]) XR, ribs, unilateral, 2 view 02/16/2021 12:00:00 AM ED T [place] ([facility]) XR, ribs, unilateral, 2 view 02/16/2021 12:00:00 AM ED T [place] ([facility]) DEBRIDEMENT NAIL ANY METHOD 02/14/2021 12:00:00 AM [...] ointment topical 12/24/19 12:00:00 AM EDT eCW1 ([facility]) DEBRIDEMENT NAIL ANY METHOD 12/15/2020 12:00:00 AM EDT [facility] ([facility] OFFICE OUTPATIENT VISIT 15 MINUTES 12/15/2020 12:00:00 AM EDT [facility] ([facility] Medication: 4% Lidocaine topical cream (Anecream) 30 gm 12/09/2020 12:00:00 AM EDT eCW1 ([facility]) FINE NEEDLE ASPIRATION W/O IMAGING GUIDANCE 12/02/2020 12:00:00 AM EDT eCW1 ([facility]) Medication: 4% Lidocaine topical cream (Anecream) 30 gm 11/23/2020 12:00:00 AM EDT eCW1 ([facility]) FINE NEEDLE ASPIRATION W/O IMAGING GUIDANCE 11/16/2020 12:00:00 AM EDT eCW1 ([facility]) Medication: Aquaphor healing ointment topical 11/09/19 12:00:00 AM EST eCW1 ([facility]) Medication: 4% Lidocaine topical cream (Anecream) 30 gm 11/08/2020 12:00:00 AM EST eCW1 ([facility]) Medication: 2% Lidocaine intradermal 11/01/2020 12:00: 00 AM EST eCW1 ([facility]) FINE NEEDLE ASPIRATION W/O IMAGING GUIDANCE 11/01/2020 12:00:00 AM EST eCW1 ([facility]) Medication: Aquaphor healing ointment topical 11/02/19 12:00:00 AM EST eCW1 ([facility]) Medication: Aquaphor healing ointment topical 10/17/19 12:00:00 AM EST eCW1 ([facility]) Medication: 4% Lidocaine topical cream (Anecream) 30 gm 10/17/2020 12:00:00 AM EST eCW1 ([facility]) Medication: 4% Lidocaine topical cream (Anecream) 30 gm 10/07/2020 12:00:00 AM EST eCW1 ([facility]) FINE NEEDLE ASPIRATION W/O IMAGING GUIDANCE 09/30/2020 12:00:00 AM EST eCW1 ([facility]) FINE NEEDLE ASPIRATION W/O IMAGING GUIDANCE 09/23/2020 12:00:00 AM EST eCW1 ([facility]) FINE NEEDLE ASPIRATION W/O IMAGING GUIDANCE 09/14/2020 12:00:00 AM EST eCW1 ([facility]) FINE NEEDLE ASPIRATION W/O IMAGING GUIDANCE 08/24/2020 12:00:00 AM EST eCW1 ([facility]) FINE NEEDLE ASPIRATION W/O IMAGING GUIDANCE 08/17/2020 12:00:00 AM EST eCW1 ([facility]) FINE NEEDLE ASPIRATION W/O IMAGING GUIDANCE 08/11/2020 12:00:00 AM EST eCW1 ([facility]) X-Ray Hip Unilateral With Pelvis 2-3 Views 08/08/2020 12:00:00 AM EST [facility] ([facility] ) FINE NEEDLE ASPIRATION W/O IMAGING GUIDANCE 08/03/2020 12:00:00 AM EST eCW1 ([facility]) FINE NEEDLE ASPIRATION W/O IMAGING GUIDANCE 07/25/2020 12:00:00 AM EST eCW1 ([facility]) FINE NEEDLE ASPIRATION W/O IMAGING GUIDANCE 07/15/2020 12:00:00 AM EST eCW1 ([facility]) FINE NEEDLE ASPIRATION W/O IMAGING GUIDANCE 07/08/2020 12:00:00 AM EST eCW1 ([facility]) FINE NEEDLE ASPIRATION W/O IMAGING GUIDANCE 07/01/2020 12:00:00 AM EDT eCW1 ([facility]) FINE NEEDLE ASPIRATION W/O IMAGING GUIDANCE 06/24/2020 12:00:00 AM EDT eCW1 ([facility]) FINE NEEDLE ASPIRATION W/O IMAGING GUIDANCE 06/09/2020 12:00:00 AM EDT eCW1 ([facility]) Results ID Date Data Source [id number] 06/26/2021 04:30:33 PM EDT [place] ([facility]) Name Value Range Interpretation Code Description Data Romy rce(s) Supporting Document(s) Blood Glucose: mg/dl Blood Glucose: mg/dl [place] ([facility]) ID Date Data Source [id number] 04/20/2021 11:35:00 AM EDT [place] ([facility]) Name Value Range Interpretation Code Description Data Romy rce(s) Supporting Document(s) Leukocytes [#/volume] in Blood by Automated count 3.8 thousand/uL 3 .8-10.8 White Blood Cell Count [place] ([facility]) Hemoglobin [Mass/volume] in Blood 10.4 g/dL 11.7-15.5 Below l ow normal Hemoglobin [place] ([facility]) Erythrocytes [#/volume] in Blood by Automated count 3.75 million /uL 3.80-5.10 Below low normal Red Blood Cell Count [place] ([facility]) Hematocrit [Volume Fraction] of Blood by Automated count 32.4 % 35.0-45.0 Below low normal Hematocrit [place] ([facility]) Erythrocyte mean corpuscular volume [Entitic volume] by Auto mated count 86.4 fL 80.0-100.0 Mcv [place] ([facility]) Erythrocyte mean corpuscular hemoglobin [Entitic mass] by Automated count 27.7 pg 27.0-33.0 Mch [place] ([facility]) Erythrocyte distribution width [Ratio] by Automated count 13.3 % 11.0-15.0 Rdw [place] ([facility]) Erythrocyte mean corpuscular hemoglobin concentration [Mass/volume] by Automated count 32.1 g/dL 32.0-36.0 Mchc [place] ([facility]) Platelets [#/volume] in Blood by Automated count 150 thousand/uL 14 0-400 Platelet Count [place] ([facility]) Platelet mean volume [Entitic volume] in Blood by Demetris 11.0 f L 7.5-12.5 Mpv [place] ([facility]) Neutrophils [#/volume] in Blood by Automated count 1607 cells/uL 15 00-7800 Absolute Neutrophils [place] ([facility]) Lymphocytes [#/volume] in Blood by Automated count 1471 cells/uL 85 0-3900 Absolute Lymphocytes [place] ([facility]) Monocytes [#/volume] in Blood by Automated count 410 cells/uL 200-9 50 Absolute Monocytes [place] ([facility]) Eosinophils [#/volume] in Blood by Automated count 270 cells/uL 15- 500 Absolute Eosinophils [place] ([facility]) Basophils [#/volume] in Blood by Automated count 42 cells/uL 0-200 Absolute Basophils [place] ([facility]) Neutrophils/100 leukocytes in Blood by Automated count 42.3 % 38-80 Neutrophils [place] ([facility]) Lymphocytes/100 leukocytes in Blood by Automated count 38.7 % 15-49 Lymphocytes [place] ([facility]) Monocytes/100 leukocytes in Blood by Automated count 10.8 % 0-13 Monocytes [place] ([facility]) Basophils/100 leukocytes in Blood by Automated count 1.1 % 0-2 Basophils [place] ([facility]) Eosinophils/100 leukocytes in Blood by Automated count 7.1 % 0-8 Eosinophils [facility]) ID Date Data Source [id number] 04/20/2021 11:35:00 AM EDT [facility]) Name Value Range Interpretation Code Description Data Romy rce(s) Supporting Document(s) Pathologist review of Blood tests Pa thologist Review of Peripheral Smear [facility]) ID Date Data Source [id number] 04/20/2021 11:35:00 AM EDT [facility]) Name Value Range Interpretation Code Description Data Romy rce(s) Supporting Document(s) Glucose [Mass/volume] in Serum or Plasma 202 mg/dL 65-99 Above high normal Glucose [facility]) Urea nitrogen [Mass/volume] in Serum or Plasma 17 mg/dL 7-25 Urea Nitrogen (BUN) [facility]) Glomerular filtration rate/1.73 sq M.pre dicted among non-blacks [Volume Rate/Area] in Serum, Plasma or Blood by Creatinine-based formula (CKD-EPI) 70 mL/min/1.73m2 > or = 60 eGFR Non-afr. [place] ([facility]) Creatinine [Mass/volume] in Serum or Plasma 0.82 mg/dL 0.60-0.93 Creatinine [facility]) Urea nitrogen/Creatinine [Mass Ratio] in Serum or Plasma not applic able 6-22 BUN/creatinine Ratio [facility]) Glomerular filtration rate/1.73 sq M.pre dicted among blacks [Volume Rate/Area] in Serum, Plasma or Blood by Creatinine-based formula (CKD-EPI) 81 mL/min/1.73m2 > or = 60 eGFR [place] ([facility]) Sodium [Moles/volume] in Serum or Plasma 138 mmol/L 135-146 Sodium [place] ([facility]) Potassium [Moles/volume] in Serum or Plasma 3.6 mmol/L 3.5-5.3 Potassium [place] ([facility]) Carbon dioxide, total [Moles/volume] in Serum or Plasma 28 mmol/L 20-32 Carbon Dioxide [place] ([facility]) Chloride [Moles/volume] in Serum or Plasma 99 mmol/L 98-110 Chloride [place] ([facility]) Calcium [Mass/volume] in Serum or Plasma 9.1 mg/dL 8.6-10.4 Calcium [place] ([facility]) Protein [Mass/volume] in Serum or Plasma 8.1 g/dL 6.1-8.1 Protein, Total [facility]) Albumin [Mass/volume] in Serum or Plasma 3.8 g/dL 3.6-5.1 Albumin [place] ([facility]) Globulin [Mass/volume] in Serum by calculation 4.3 g/dL_(calc) 1 .9-3.7 Above high normal Globulin [place] ([facility]) Bilirubin.total [Mass/volume] in Serum or Plasma 0.7 mg/dL 0.2-1 .2 Bilirubin, Total [facility]) Albumin/Globulin [Mass Ratio] in Serum or Plasma 0.9 (calc) 1.0-2.5 Below low normal Albumin/globulin Ratio [place] ([facility]) Alkaline phosphatase [Enzymatic activity/volume] in Serum or Plasma 63 U/L 37-153 Alkaline Phosphatase [place] ([facility]) Aspartate aminotransferase [Enzymatic activity/volume] in Serum or Plasma 17 U/L 10-35 Ast [place] ([facility]) Alanine aminotransferase [Enzymatic activity/volume] in Seru m or Plasma 11 U/L 6-29 Alt [place] ([facility]) ID Date Data Source [id number] 04/20/2021 11:35:00 AM EDT [place] ([facility]) Name Value Range Interpretation Code Description Data Romy rce(s) Supporting Document(s) Leukocytes [#/volume] in Blood by Automated count 3.8 thousand/uL 3 .8-10.8 White Blood Cell Count [place] ([facility]) Erythrocytes [#/volume] in Blood by Automated count 3.75 million /uL 3.80-5.10 Below low normal Red Blood Cell Count [facility] ([facility]) Hematocrit [Volume Fraction] of Blood by Automated count 32.4 % 35.0-45.0 Below low normal Hematocrit [place] ([facility]) Hemoglobin [Mass/volume] in Blood 10.4 g/dL 11.7-15.5 Below l ow normal Hemoglobin [place] ([facility]) Erythrocyte mean corpuscular volume [Entitic volume] by Auto mated count 86.4 fL 80.0-100.0 Mcv [place] ([facility]) Erythrocyte mean corpuscular hemoglobin [Entitic mass] by Automated count 27.7 pg 27.0-33.0 Mch [place] ([facility]) Erythrocyte distribution width [Ratio] by Automated count 13.3 % 11.0-15.0 Rdw [place] ([facility]) Erythrocyte mean corpuscular hemoglobin concentration [Mass/volume] by Automated count 32.1 g/dL 32.0-36.0 Mchc [place] ([facility]) Platelets [#/volume] in Blood by Automated count 150 thousand/uL 14 0-400 Platelet Count ORSEMARY ([facility]) Platelet mean volume [Entitic volume] in Blood by Demetris 11.0 f L 7.5-12.5 Mpv ROSEMARY ([facility]) Neutrophils [#/volume] in Blood by Automated count 1607 cells/uL 15 00-7800 Absolute Neutrophils ROSEMARY ([facility]) Lymphocytes [#/volume] in Blood by Automated count 1471 cells/uL 85 0-3900 Absolute Lymphocytes ROSEMARY ([facility]) Monocytes [#/volume] in Blood by Automated count 410 cells/uL 200-9 50 Absolute Monocytes ROSEMARY ([facility]) Eosinophils [#/volume] in Blood by Automated count 270 cells/uL 15- 500 Absolute Eosinophils ROSEMARY [facility]) Basophils [#/volume] in Blood by Automated count 42 cells/uL 0-200 [facility] Neutrophils/100 leukocytes in Blood by Automated count 42.3 % 38-80 Neutrophils ROSEMARY ([facility]) Monocytes/100 leukocytes in Blood by Automated count 10.8 % 0-13 Monocytes ROSEMARY ([facility]) Lymphocytes/100 leukocytes in Blood by Automated count 38.7 % 15-49 Lymphocytes ROSEMARY ([facility]) Eosinophils/100 leukocytes in Blood by Automated count 7.1 % 0-8 Eosinophils ROSEMARY ([facility]) Basophils/100 leukocytes in Blood by Automated count 1.1 % 0-2 Basophils [facility]) ID Date Data Source [id number] 04/20/2021 11:35:00 AM EDT [facility]) Name Value Range Interpretation Code Description Data Romy rce(s) Supporting Document(s) Pathologist review of Blood tests Pa thologist Review of Peripheral Smear [facility]) ID Date Data Source [id number] 04/20/2021 11:35:00 AM EDT [facility]) Name Value Range Interpretation Code Description Data Romy rce(s) Supporting Document(s) Glucose [Mass/volume] in Serum or Plasma 202 mg/dL 65-99 Above high normal Glucose [place] ([facility]) Urea nitrogen [Mass/volume] in Serum or Plasma 17 mg/dL 7-25 Urea Nitrogen (BUN) [facility]) Creatinine [Mass/volume] in Serum or Plasma 0.82 mg/dL 0.60-0.93 Creatinine [facility]) Glomerular filtration rate/1.73 sq M.pre dicted among non-blacks [Volume Rate/Area] in Serum, Plasma or Blood by Creatinine-based formula (CKD-EPI) 70 mL/min/1.73m2 > or = 60 eGFR Non-afr. [place] ([facility]) Glomerular filtration rate/1.73 sq M.pre dicted among blacks [Volume Rate/Area] in Serum, Plasma or Blood by Creatinine-based formula (CKD-EPI) 81 mL/min/1.73m2 > or = 60 eGFR [place] ([facility]) Urea nitrogen/Creatinine [Mass Ratio] in Serum or Plasma not applic able 6-22 BUN/creatinine Ratio [place] ([facility]) Sodium [Moles/volume] in Serum or Plasma 138 mmol/L 135-146 Sodium [place] ([facility]) Potassium [Moles/volume] in Serum or Plasma 3.6 mmol/L 3.5-5.3 Potassium [place] ([facility]) Chloride [Moles/volume] in Serum or Plasma 99 mmol/L 98-110 Chloride [place] ([facility]) Carbon dioxide, total [Moles/volume] in Serum or Plasma 28 mmol/L 20-32 Carbon Dioxide [place] ([facility]) Calcium [Mass/volume] in Serum or Plasma 9.1 mg/dL 8.6-10.4 Calcium [place] ([facility]) Protein [Mass/volume] in Serum or Plasma 8.1 g/dL 6.1-8.1 Protein, Total [place] ([facility]) Albumin [Mass/volume] in Serum or Plasma 3.8 g/dL 3.6-5.1 Albumin [place] ([facility]) Globulin [Mass/volume] in Serum by calculation 4.3 g/dL_(calc) 1 .9-3.7 Above high normal Globulin [place] ([facility]) Albumin/Globulin [Mass Ratio] in Serum or Plasma 0.9 (calc) 1.0-2.5 Below low normal Albumin/globulin Ratio [place] ([facility]) Bilirubin.total [Mass/volume] in Serum or Plasma 0.7 mg/dL 0.2-1 .2 Bilirubin, Total [place] ([facility]) Alkaline phosphatase [Enzymatic activity/volume] in Serum or Plasma 63 U/L 37-153 Alkaline Phosphatase [place] ([facility]) Aspartate aminotransferase [Enzymatic activity/volume] in Serum or Plasma 17 U/L 10-35 Ast [place] ([facility]) Alanine aminotransferase [Enzymatic activity/volume] in Seru m or Plasma 11 U/L 6-29 Alt [place] ([facility]) ID Date Data Source [id number] 04/06/2021 10:13:00 AM EDT [facility]) Name Value Range Interpretation Code Description Data Romy rce(s) Supporting Document(s) Blood Glucose: mg/dl Blood Glucose: mg/dl [place] ([facility]) ID Date Data Source [id number] 04/06/2021 10:13:00 AM EDT [facility]) Name Value Range Interpretation Code Description Data Romy rce(s) Supporting Document(s) Blood Glucose: mg/dl Blood Glucose: mg/dl [facility]) ID Date Data Source [id number] 04/06/2021 10:13:00 AM EDT [facility]) Name Value Range Interpretation Code Description Data Romy rce(s) Supporting Document(s) Blood Glucose: mg/dl Blood Glucose: mg/dl [facility]) ID Date Data Source [id number] 03/22/2021 08:46:00 PM EDT [facility]) Name Value Range Interpretation Code Description Data Romy rce(s) Supporting Document(s) bedside glucose 185 mg/dL 83-110 Above high normal Bedside Gluco se [facility]) ID Date Data Source [id number] 03/22/2021 08:46:00 PM EDT [facility]) Name Value Range Interpretation Code Description Data Romy rce(s) Supporting Document(s) bedside glucose 185 mg/dL 83-110 Above high normal Bedside Gluco se [facility]) ID Date Data Source [id number] 03/22/2021 08:46:00 PM EDT [facility]) Name Value Range Interpretation Code Description Data Romy rce(s) Supporting Document(s) bedside glucose 185 mg/dL 83-110 Above high normal Bedside Gluco se [place] ([facility]) ID Date Data Source [id number] 03/22/2021 08:46:00 PM EDT [place] ([facility]) Name Value Range Interpretation Code Description Data Romy rce(s) Supporting Document(s) bedside glucose 185 mg/dL 83-110 Above high normal Bedside Gluco se [place] ([facility]) ID Date Data Source [id number] 03/22/2021 06:13:00 PM EDT [facility]) Name Value Range Interpretation Code Description Data Romy rce(s) Supporting Document(s) bedside glucose 89 mg/dL 83-110 Bedside Glucose ATHE ([facility]) ID Date Data Source [id number] 03/22/2021 06:13:00 PM EDT [facility]) Name Value Range Interpretation Code Description Data Romy rce(s) Supporting Document(s) bedside glucose 89 mg/dL 83-110 Bedside Glucose ATHE ([facility]) ID Date Data Source [id number] 03/22/2021 06:13:00 PM EDT [facility]) Name Value Range Interpretation Code Description Data Romy rce(s) Supporting Document(s) bedside glucose 89 mg/dL 83-110 Bedside Glucose ATHE ([facility]) ID Date Data Source [id number] 03/22/2021 06:13:00 PM EDT [facility]) Name Value Range Interpretation Code Description Data Romy rce(s) Supporting Document(s) bedside glucose 89 mg/dL 83-110 Bedside Glucose ATHE [place] ([facility]) ID Date Data Source [id number] 03/22/2021 12:09:00 PM EDT [facility]) Name Value Range Interpretation Code Description Data Romy rce(s) Supporting Document(s) bedside glucose 179 mg/dL 83-110 Above high normal [facility] ID Date Data Source [id number] 03/22/2021 12:09:00 PM EDT [facility]) Name Value Range Interpretation Code Description Data Romy rce(s) Supporting Document(s) bedside glucose 179 mg/dL 83-110 Above high normal Bedside Gluco se [facility]) ID Date Data Source [id number] 03/22/2021 12:09:00 PM EDT [facility]) Name Value Range Interpretation Code Description Data Romy rce(s) Supporting Document(s) bedside glucose 179 mg/dL 83-110 Above high normal [facility] ID Date Data Source [id number] 03/22/2021 12:09:00 PM EDT [facility]) Name Value Range Interpretation Code Description Data Romy rce(s) Supporting Document(s) bedside glucose 179 mg/dL 83-110 Above high normal [facility]side [facility] ID Date Data Source [id number] 03/21/2021 08:25:00 PM EDT [facility]) Name Value Range Interpretation Code Description Data Romy rce(s) Supporting Document(s) bedside glucose 110 mg/dL 83-110 Bedside Glucose ATHE [facility]) ID Date Data Source [id number] 03/21/2021 08:25:00 PM EDT [facility]) Name Value Range Interpretation Code Description Data Romy rce(s) Supporting Document(s) bedside glucose 110 mg/dL 83-110 Bedside Glucose ATHE NA ([facility]) ID Date Data Source [id number] 03/21/2021 08:25:00 PM EDT [place] ([facility]) Name Value Range Interpretation Code Description Data Romy rce(s) Supporting Document(s) bedside glucose 110 mg/dL 83-110 Bedside Glucose ATHE NA ([facility]) ID Date Data Source [id number] 03/21/2021 08:25:00 PM EDT [facility]) Name Value Range Interpretation Code Description Data Romy rce(s) Supporting Document(s) bedside glucose 110 mg/dL 83-110 Bedside Glucose ATHE [place] ([facility]) ID Date Data Source [id number] 03/21/2021 05:03:00 PM EDT [facility]) Name Value Range Interpretation Code Description Data Romy rce(s) Supporting Document(s) bedside glucose 138 mg/dL 83-110 Above high normal Bedside Gluco se [facility]) ID Date Data Source [id number] 03/21/2021 05:03:00 PM EDT [facility]) Name Value Range Interpretation Code Description Data Romy rce(s) Supporting Document(s) bedside glucose 138 mg/dL 83-110 Above high normal Bedside Gluco se [place] ([facility]) ID Date Data Source [id number] 03/21/2021 05:03:00 PM EDT [facility]) Name Value Range Interpretation Code Description Data Romy rce(s) Supporting Document(s) bedside glucose 138 mg/dL 83-110 Above high normal Bedside Gluco se [facility]) ID Date Data Source [id number] 03/21/2021 05:03:00 PM EDT [facility]) Name Value Range Interpretation Code Description Data Romy rce(s) Supporting Document(s) bedside glucose 138 mg/dL 83-110 Above high normal Bedside Gluco se [facility]) ID Date Data Source [id number] 03/21/2021 12:44:00 PM EDT [facility]) Name Value Range Interpretation Code Description Data Romy rce(s) Supporting Document(s) bedside glucose 139 mg/dL 83-110 Above high normal Bedside Gluco se [facility]) ID Date Data Source [id number] 03/21/2021 12:44:00 PM EDT [facility]) Name Value Range Interpretation Code Description Data Romy rce(s) Supporting Document(s) bedside glucose 139 mg/dL 83-110 Above high normal Bedside Gluco se [facility]) ID Date Data Source [id number] 03/21/2021 12:44:00 PM EDT [facility]) Name Value Range Interpretation Code Description Data Roym rce(s) Supporting Document(s) bedside glucose 139 mg/dL 83-110 Above high normal Bedside Gluco se [facility]) ID Date Data Source [id number] 03/21/2021 12:44:00 PM EDT [facility]) Name Value Range Interpretation Code Description Data Romy rce(s) Supporting Document(s) bedside glucose 139 mg/dL 83-110 Above high normal Bedside Gluco se [facility]) ID Date Data Source [id number] 03/21/2021 09:08:00 AM EDT [facility]) Name Value Range Interpretation Code Description Data Romy rce(s) Supporting Document(s) bedside glucose 128 mg/dL 83-110 Above high normal Bedside Gluco se [facility]) ID Date Data Source [id number] 03/21/2021 09:08:00 AM EDT [facility]) Name Value Range Interpretation Code Description Data Romy rce(s) Supporting Document(s) bedside glucose 128 mg/dL 83-110 Above high normal Bedside Gluco se [facility]) ID Date Data Source [id number] 03/21/2021 09:08:00 AM EDT [facility]) Name Value Range Interpretation Code Description Data Romy rce(s) Supporting Document(s) bedside glucose 128 mg/dL 83-110 Above high normal Bedside Gluco se [facility]) ID Date Data Source [id number] 03/21/2021 09:08:00 AM EDT [facility]) Name Value Range Interpretation Code Description Data Romy rce(s) Supporting Document(s) bedside glucose 128 mg/dL 83-110 Above high normal Bedside Gluco se [facility]) ID Date Data Source [id number] 03/20/2021 10:59:00 PM EDT [facility]) Name Value Range Interpretation Code Description Data Romy rce(s) Supporting Document(s) troponin I < 0.02 < 0.10 Troponin I [facility]) ID Date Data Source [id number] 03/20/2021 10:59:00 PM EDT [facility]) Name Value Range Interpretation Code Description Data Romy rce(s) Supporting Document(s) blood urea nitrogen 12 mg/dL 7-18 Blood Urea Nitro gen [place] ([facility]) glucose, fasting 150 mg/dL 70-100 Above high normal Glucose, Fas ting [place] ([facility]) sodium level 142 mEq/L 136-145 Sodium Level [place] ([facility]) glomerular filtration rate > 60.0 >39 Glomerula r Filtration Rate [place] ([facility]) creatinine for GFR 0.70 mg/dL 0.55-1.30 Creatinine for GF R [place] ([facility]) chloride level 109 mEq/L 98-107 Above high normal Chloride Level [place] ([facility]) potassium serum 3.9 mEq/L 3.5-5.1 Potassium Serum ATHE NA ([facility]) carbon dioxide level 29 mEq/L 21-32 Carbon Dioxide Level [place] ([facility]) anion gap 4 mEq/L 8-16 Below low normal Anion Gap [place] ( [facility]) calcium level 8.2 mg/dL 8.8-10.2 Below low normal Calcium Level AT [facility]) ID Date Data Source [id number] 03/20/2021 10:59:00 PM EDT [place] ([facility]) Name Value Range Interpretation Code Description Data Romy rce(s) Supporting Document(s) white blood count 3.9 10 4.0-10.0 Below low normal White Blood Count [place] ([facility]) red blood count 3.39 10 4.00-5.40 Below low normal Red Blood Coun t [place] ([facility]) hemoglobin 9.5 g/dL 12.0-15.5 Below low normal Hemoglobin [place] ( [facility]) hematocrit 28.9 % 36.0-47.0 Below low normal Hematocrit [place] ( [facility]) mean corpuscular volume 85.3 fL 80.0-96.0 Mean Corpusc ular Volume [place] ([facility]) mean corpuscular hemoglobin 28.0 pg 27.0-33.0 Mean Cor puscular Hemoglobin [place] ([facility]) mean corpuscular HGB conc 32.9 g/dL 32.0-36.5 Mean Corpu scular HGB Conc [place] ([facility]) red cell distribution width 14.2 % 11.5-14.5 Red Cell Distribution Width [place] ([facility]) platelet count, automated 111 10 150-450 Below low marlon l Platelet Count, Automated [place] ([facility]) nucleated red blood cell % 0.0 % 0-0 Nucleated Red Blood Cell % [place] ([facility]) ID Date Data Source [id number] 03/20/2021 10:59:00 PM EDT [place] ([facility]) Name Value Range Interpretation Code Description Data Romy rce(s) Supporting Document(s) troponin I < 0.02 < 0.10 Troponin I [place] ([facility]) ID Date Data Source [id number] 03/20/2021 10:59:00 PM EDT [place] ([facility]) Name Value Range Interpretation Code Description Data Romy rce(s) Supporting Document(s) glucose, fasting 150 mg/dL 70-100 Above high normal Glucose, Fas ting [place] ([facility]) blood urea nitrogen 12 mg/dL 7-18 Blood Urea Nitro gen [place] ([facility]) creatinine for GFR 0.70 mg/dL 0.55-1.30 Creatinine for GF R [place] ([facility]) sodium level 142 mEq/L 136-145 Sodium Level [place] ([facility]) glomerular filtration rate > 60.0 >39 Glomerula r Filtration Rate [place] ([facility]) potassium serum 3.9 mEq/L 3.5-5.1 Potassium Serum ATHE NA ([facility]) chloride level 109 mEq/L 98-107 Above high normal Chloride Level [place] ([facility]) anion gap 4 mEq/L 8-16 Below low normal Anion Gap [place] ( [facility]) carbon dioxide level 29 mEq/L 21-32 Carbon Dioxide Level [place] ([facility]) calcium level 8.2 mg/dL 8.8-10.2 Below low normal Calcium Level AT [facility]) ID Date Data Source [id number] 03/20/2021 10:59:00 PM EDT [place] ([facility]) Name Value Range Interpretation Code Description Data Romy rce(s) Supporting Document(s) white blood count 3.9 10 4.0-10.0 Below low normal White Blood Count [place] ([facility]) red blood count 3.39 10 4.00-5.40 Below low normal Red Blood Coun t [place] ([facility]) hemoglobin 9.5 g/dL 12.0-15.5 Below low normal Hemoglobin [place] ( [facility]) hematocrit 28.9 % 36.0-47.0 Below low normal Hematocrit [place] ( [facility]) mean corpuscular volume 85.3 fL 80.0-96.0 Mean Corpusc ular Volume [place] ([facility]) mean corpuscular hemoglobin 28.0 pg 27.0-33.0 Mean Cor puscular Hemoglobin [place] ([facility]) mean corpuscular HGB conc 32.9 g/dL 32.0-36.5 Mean Corpu scular HGB Conc [place] ([facility]) red cell distribution width 14.2 % 11.5-14.5 Red Cell Distribution Width [place] ([facility]) nucleated red blood cell % 0.0 % 0-0 Nucleated Red Blood Cell % [place] ([facility]) platelet count, automated 111 10 150-450 Below low marlon l Platelet Count, Automated [place] ([facility]) ID Date Data Source [id number] 03/20/2021 10:59:00 PM EDT [place] ([facility]) Name Value Range Interpretation Code Description Data Romy rce(s) Supporting Document(s) troponin I < 0.02 < 0.10 Troponin I [facility]) ID Date Data Source [id number] 03/20/2021 10:59:00 PM EDT [place] ([facility]) Name Value Range Interpretation Code Description Data Romy rce(s) Supporting Document(s) glucose, fasting 150 mg/dL 70-100 Above high normal Glucose, Fas ting [place] ([facility]) blood urea nitrogen 12 mg/dL 7-18 Blood Urea Nitro gen [place] ([facility]) creatinine for GFR 0.70 mg/dL 0.55-1.30 Creatinine for GF R [place] ([facility]) potassium serum 3.9 mEq/L 3.5-5.1 Potassium Serum ATHE NA ([facility]) glomerular filtration rate > 60.0 >39 Glomerula r Filtration Rate [place] ([facility]) sodium level 142 mEq/L 136-145 Sodium Level [place] ([facility]) chloride level 109 mEq/L 98-107 Above high normal Chloride Level [place] ([facility]) carbon dioxide level 29 mEq/L 21-32 Carbon Dioxide Level [place] ([facility]) anion gap 4 mEq/L 8-16 Below low normal Anion Gap [place] ( [facility]) calcium level 8.2 mg/dL 8.8-10.2 Below low normal Calcium Level AT [place]IP[place] ([facility]) ID Date Data Source [id number] 03/20/2021 10:59:00 PM EDT [place] ([facility]) Name Value Range Interpretation Code Description Data Romy rce(s) Supporting Document(s) white blood count 3.9 10 4.0-10.0 Below low normal White Blood Count [place] ([facility]) hemoglobin 9.5 g/dL 12.0-15.5 Below low normal Hemoglobin [place] ( [facility]) red blood count 3.39 10 4.00-5.40 Below low normal Red Blood Coun t [place] ([facility]) mean corpuscular volume 85.3 fL 80.0-96.0 Mean Corpusc ular Volume [place] ([facility]) hematocrit 28.9 % 36.0-47.0 Below low normal Hematocrit [place] ( [facility]) mean corpuscular hemoglobin 28.0 pg 27.0-33.0 Mean Cor puscular Hemoglobin [place] ([facility]) mean corpuscular HGB conc 32.9 g/dL 32.0-36.5 Mean Corpu scular HGB Conc [place] ([facility]) red cell distribution width 14.2 % 11.5-14.5 Red Cell Distribution Width [place] ([facility]) platelet count, automated 111 10 150-450 Below low marlon l Platelet Count, Automated [place] ([facility]) nucleated red blood cell % 0.0 % 0-0 Nucleated Red Blood Cell % [place] ([facility]) ID Date Data Source [id number] 03/20/2021 10:59:00 PM EDT [place] ([facility]) Name Value Range Interpretation Code Description Data Romy rce(s) Supporting Document(s) troponin I < 0.02 < 0.10 Troponin I [facility]) ID Date Data Source [id number] 03/20/2021 10:59:00 PM EDT [facility]) Name Value Range Interpretation Code Description Data Romy rce(s) Supporting Document(s) creatinine for GFR 0.70 mg/dL 0.55-1.30 Creatinine for GF R [place] ([facility]) glucose, fasting 150 mg/dL 70-100 Above high normal Glucose, Fas ting [place] ([facility]) blood urea nitrogen 12 mg/dL 7-18 Blood Urea Nitro gen [place] ([facility]) sodium level 142 mEq/L 136-145 Sodium Level [place] ([facility]) glomerular filtration rate > 60.0 >39 Glomerula r Filtration Rate [place] ([facility]) potassium serum 3.9 mEq/L 3.5-5.1 Potassium Serum ATH NA ([facility]) chloride level 109 mEq/L 98-107 Above high normal Chloride Level [place] ([facility]) carbon dioxide level 29 mEq/L 21-32 Carbon Dioxide Level [place] ([facility]) calcium level 8.2 mg/dL 8.8-10.2 Below low normal Calcium Level AT [facility]) anion gap 4 mEq/L 8-16 Below low normal Anion Gap [place] ( [facility]) ID Date Data Source [id number] 03/20/2021 10:59:00 PM EDT [place] ([facility]) Name Value Range Interpretation Code Description Data Romy rce(s) Supporting Document(s) red blood count 3.39 10 4.00-5.40 Below low normal Red Blood Coun t [place] ([facility]) white blood count 3.9 10 4.0-10.0 Below low normal White Blood Count [place] ([facility]) hemoglobin 9.5 g/dL 12.0-15.5 Below low normal Hemoglobin [place] ( [facility]) hematocrit 28.9 % 36.0-47.0 Below low normal Hematocrit [place] ( [facility]) mean corpuscular volume 85.3 fL 80.0-96.0 Mean Corpusc ular Volume [place] ([facility]) mean corpuscular HGB conc 32.9 g/dL 32.0-36.5 Mean Corpu scular HGB Conc [place] ([facility]) red cell distribution width 14.2 % 11.5-14.5 Red Cell Distribution Width [place] ([facility]) mean corpuscular hemoglobin 28.0 pg 27.0-33.0 Mean Cor puscular Hemoglobin [place] ([facility]) platelet count, automated 111 10 150-450 Below low marlon l Platelet Count, Automated [place] ([facility]) nucleated red blood cell % 0.0 % 0-0 Nucleated Red Blood Cell % [place] ([facility]) ID Date Data Source [id number] 03/20/2021 10:25:00 PM EDT [place] ([facility]) Name Value Range Interpretation Code Description Data Romy rce(s) Supporting Document(s) bedside glucose 151 mg/dL 83-110 Above high normal Bedside Gluco se [place] ([facility]) ID Date Data Source [id number] 03/20/2021 10:25:00 PM EDT [facility]) Name Value Range Interpretation Code Description Data Romy rce(s) Supporting Document(s) bedside glucose 151 mg/dL 83-110 Above high normal Bedside Gluco se [place] ([facility]) ID Date Data Source [id number] 03/20/2021 10:25:00 PM EDT [facility]) Name Value Range Interpretation Code Description Data Romy rce(s) Supporting Document(s) bedside glucose 151 mg/dL 83-110 Above high normal Bedside Gluco se [place] ([facility]) ID Date Data Source [id number] 03/20/2021 10:25:00 PM EDT [facility]) Name Value Range Interpretation Code Description Data Romy rce(s) Supporting Document(s) bedside glucose 151 mg/dL 83-110 Above high normal Bedside Gluco se [facility]) ID Date Data Source [id number] 03/20/2021 05:56:00 PM EDT [facility]) Name Value Range Interpretation Code Description Data Romy rce(s) Supporting Document(s) glucose, fasting 150 mg/dL 70-100 Above high normal Glucose, Fas ting [place] ([facility]) blood urea nitrogen 10 mg/dL 7-18 Blood Urea Nitro gen [place] ([facility]) creatinine for GFR 0.67 mg/dL 0.55-1.30 Creatinine for GF R [place] ([facility]) glomerular filtration rate > 60.0 >39 Glomerula r Filtration Rate [place] ([facility]) sodium level 140 mEq/L 136-145 Sodium Level [place] ([facility]) potassium serum 3.7 mEq/L 3.5-5.1 Potassium Serum ATH NA ([facility]) chloride level 108 mEq/L 98-107 Above high normal Chloride Level [place] ([facility]) carbon dioxide level 24 mEq/L 21-32 Carbon Dioxide Level [place] ([facility]) anion gap 8 mEq/L 8-16 Anion Gap [place] ([facility]) calcium level 8.7 mg/dL 8.8-10.2 Below low normal Calcium Level AT [place] ([facility]) AST/SGOT 15 U/L 7-37 AST/SGOT [place] ([facility]) ALT/SGPT 14 U/L 12-78 ALT/SGPT [place] ([facility]) alkaline phosphatase 60 U/L 45-117 Alkaline Phosph atase [place] ([facility]) bilirubin,total 0.5 mg/dL 0.2-1.0 Bilirubin,total AT[place] ([facility]) total protein 7.8 gm/dL 6.4-8.2 Total Protein [place] ( [facility]) albumin 3.0 gm/dL 3.2-5.2 Below low normal Albumin [place] ( [facility]) albumin/globulin ratio 1.2-2.2 Below low normal Albumin /globulin Ratio [place] ([facility]) ID Date Data Source [id number] 03/20/2021 05:56:00 PM EDT [place] ([facility]) Name Value Range Interpretation Code Description Data Romy rce(s) Supporting Document(s) thyroid stimulating hormone 1.890 uIU/mL 0.358-3.740 Thyroid Stimulating Hormone [place] ([facility]) ID Date Data Source [id number] 03/20/2021 05:56:00 PM EDT [place] ([facility]) Name Value Range Interpretation Code Description Data Romy rce(s) Supporting Document(s) troponin I < 0.02 < 0.10 Troponin I [place] ([facility]) ID Date Data Source [id number] 03/20/2021 05:56:00 PM EDT [place] ([facility]) Name Value Range Interpretation Code Description Data Romy rce(s) Supporting Document(s) partial thromboplastin time 33.1 seconds 24.2-38.5 Partial Thromboplastin Time [place] ([facility]) ID Date Data Source [id number] 03/20/2021 05:56:00 PM EDT [place] ([facility]) Name Value Range Interpretation Code Description Data Romy rce(s) Supporting Document(s) INR Inr [place] ([facility]) prothrombin time 15.6 seconds 12.5-14.3 Above high normal Prothrombi n Time [place] ([facility]) ID Date Data Source [id number] 03/20/2021 05:56:00 PM EDT [place] ([facility]) Name Value Range Interpretation Code Description Data Romy rce(s) Supporting Document(s) white blood count 4.0 10 4.0-10.0 White Blood Count [place] ([facility]) hemoglobin 10.7 g/dL 12.0-15.5 Below low normal Hemoglobin [place] ( [facility]) red blood count 3.88 10 4.00-5.40 Below low normal Red Blood Coun t [place] ([facility]) hematocrit 32.4 % 36.0-47.0 Below low normal Hematocrit [place] ( [facility]) mean corpuscular volume 83.5 fL 80.0-96.0 Mean Corpusc ular Volume [place] ([facility]) mean corpuscular hemoglobin 27.6 pg 27.0-33.0 Mean Cor puscular Hemoglobin [place] ([facility]) mean corpuscular HGB conc 33.0 g/dL 32.0-36.5 Mean Corpu scular HGB Conc [place] ([facility]) red cell distribution width 14.2 % 11.5-14.5 Red Cell Distribution Width [place] ([facility]) nucleated red blood cell % 0.0 % 0-0 Nucleated Red Blood Cell % [place] ([facility]) platelet count, automated 137 10 150-450 Below low marlon l Plate[facility], [facility] ID Date Data Source [id number] 03/20/2021 05:56:00 PM EDT [place] ([facility]) Name Value Range Interpretation Code Description Data Romy rce(s) Supporting Document(s) glucose, fasting 150 mg/dL 70-100 Above high normal Glucose, Fas ting [place] ([facility]) blood urea nitrogen 10 mg/dL 7-18 Blood Urea Nitro gen [place] ([facility]) glomerular filtration rate > 60.0 >39 Glomerula r Filtration Rate [place] ([facility]) creatinine for GFR 0.67 mg/dL 0.55-1.30 Creatinine for GF R [place] ([facility]) sodium level 140 mEq/L 136-145 Sodium Level [place] ([facility]) potassium serum 3.7 mEq/L 3.5-5.1 Potassium Serum [place] ([facility]) chloride level 108 mEq/L 98-107 Above high normal Chloride Level [place] ([facility]) anion gap 8 mEq/L 8-16 Anion Gap [place] ([facility]) carbon dioxide level 24 mEq/L 21-32 Carbon Dioxide Level [place] ([facility]) calcium level 8.7 mg/dL 8.8-10.2 Below low normal Calcium Level AT [place] [facility]) AST/SGOT 15 U/L 7-37 AST/SGOT [place] ([facility]) ALT/SGPT 14 U/L 12-78 ALT/SGPT [place] ([facility]) alkaline phosphatase 60 U/L 45-117 Alkaline Phosph atase [place] ([facility]) bilirubin,total 0.5 mg/dL 0.2-1.0 Bilirubin,total ATHE NA ([facility]) total protein 7.8 gm/dL 6.4-8.2 Total Protein [place] ( [facility]) albumin/globulin ratio 1.2-2.2 Below low normal Albumin /globulin Ratio [place] ([facility]) albumin 3.0 gm/dL 3.2-5.2 Below low normal Albumin [place] ( [facility]) ID Date Data Source [id number] 03/20/2021 05:56:00 PM EDT [place] ([facility]) Name Value Range Interpretation Code Description Data Romy rce(s) Supporting Document(s) thyroid stimulating hormone 1.890 uIU/mL 0.358-3.740 Thyroid Stimulating Hormone [place] ([facility]) ID Date Data Source [id number] 03/20/2021 05:56:00 PM [facility] Name Value Range Interpretation Code Description Data Romy rce(s) Supporting Document(s) troponin I < 0.02 < 0.10 Troponin I [place] ([facility]) ID Date Data Source [id number] 03/20/2021 05:56:00 PM EDT [place] ([facility]) Name Value Range Interpretation Code Description Data Romy rce(s) Supporting Document(s) partial thromboplastin time 33.1 seconds 24.2-38.5 Partial Thromboplastin Time [place] ([facility]) ID Date Data Source [id number] 03/20/2021 05:56:00 PM EDT [facility]) Name Value Range Interpretation Code Description Data Romy rce(s) Supporting Document(s) prothrombin time 15.6 seconds 12.5-14.3 Above high normal Prothrombi n Time [place] ([facility]) INR Inr [place] ([facility]) ID Date Data Source [id number] 03/20/2021 05:56:00 PM EDT [facility]) Name Value Range Interpretation Code Description Data Romy rce(s) Supporting Document(s) red blood count 3.88 10 4.00-5.40 Below low normal Red Blood Coun t [place] ([facility]) white blood count 4.0 10 4.0-10.0 White Blood Count [place] ([facility]) hemoglobin 10.7 g/dL 12.0-15.5 Below low normal Hemoglobin [place] ( [facility]) hematocrit 32.4 % 36.0-47.0 Below low normal Hematocrit [place] ( [facility]) mean corpuscular hemoglobin 27.6 pg 27.0-33.0 Mean Cor puscular Hemoglobin [place] ([facility]) mean corpuscular volume 83.5 fL 80.0-96.0 Mean Corpusc ular Volume [place] ([facility]) red cell distribution width 14.2 % 11.5-14.5 Red Cell Distribution Width [place] ([facility]) mean corpuscular HGB conc 33.0 g/dL 32.0-36.5 Mean Corpu scular HGB Conc [place] ([facility]) platelet count, automated 137 10 150-450 Below low marlon l Platelet Count, Automated [place] ([facility]) nucleated red blood cell % 0.0 % 0-0 Nucleated Red Blood Cell % [place] ([facility]) ID Date Data Source [id number] 03/20/2021 05:56:00 PM EDT [place] ([facility]) Name Value Range Interpretation Code Description Data Romy rce(s) Supporting Document(s) blood urea nitrogen 10 mg/dL 7-18 Blood Urea Nitro gen [place] ([facility]) glucose, fasting 150 mg/dL 70-100 Above high normal Glucose, Fas ting [place] ([facility]) creatinine for GFR 0.67 mg/dL 0.55-1.30 Creatinine for GF R [place] ([facility]) glomerular filtration rate > 60.0 >39 Glomerula r Filtration Rate [place] ([facility]) sodium level 140 mEq/L 136-145 Sodium Level [place] (No [facility]) potassium serum 3.7 mEq/L 3.5-5.1 Potassium Serum ATH NA [facility]) chloride level 108 mEq/L 98-107 Above high normal Chloride Level [place] ([facility]) anion gap 8 mEq/L 8-16 Anion Gap [place] ([facility]) carbon dioxide level 24 mEq/L 21-32 Carbon Dioxide Level [place] ([facility]) calcium level 8.7 mg/dL 8.8-10.2 Below low normal Calcium Level AT [place] ([facility]) AST/SGOT 15 U/L 7-37 AST/SGOT [place] ([facility]) ALT/SGPT 14 U/L 12-78 ALT/SGPT [place] ([facility]) alkaline phosphatase 60 U/L 45-117 Alkaline Phosph atase [place] ([facility]) total protein 7.8 gm/dL 6.4-8.2 Total Protein [place] ( [facility]) bilirubin,total 0.5 mg/dL 0.2-1.0 Bilirubin,total ATHE NA ([facility]) albumin 3.0 gm/dL 3.2-5.2 Below low normal Albumin [place] ( [facility]) albumin/globulin ratio 1.2-2.2 Below low normal Albumin /globulin Ratio [place] ([facility]) ID Date Data Source [id number] 03/20/2021 05:56:00 PM EDT [place] ([facility]) Name Value Range Interpretation Code Description Data Romy rce(s) Supporting Document(s) thyroid stimulating hormone 1.890 uIU/mL 0.358-3.740 Thyroid Stimulating Hormone [place] ([facility]) ID Date Data Source [id number] 03/20/2021 05:56:00 PM EDT [place] ([facility]) Name Value Range Interpretation Code Description Data Romy rce(s) Supporting Document(s) troponin I < 0.02 < 0.10 Troponin I [place] ([facility]) ID Date Data Source [id number] 03/20/2021 05:56:00 PM EDT [place] ([facility]) Name Value Range Interpretation Code Description Data Romy rce(s) Supporting Document(s) partial thromboplastin time 33.1 seconds 24.2-38.5 [facility]in [facility] ID Date Data Source [id number] 03/20/2021 05:56:00 PM EDT [place] ([facility]) Name Value Range Interpretation Code Description Data Romy rce(s) Supporting Document(s) prothrombin time 15.6 seconds 12.5-14.3 Above high normal Prothrombi n Time [place] ([facility]) INR Inr [place] ([facility]) ID Date Data Source [id number] 03/20/2021 05:56:00 PM EDT [place] ([facility]) Name Value Range Interpretation Code Description Data Romy rce(s) Supporting Document(s) white blood count 4.0 10 4.0-10.0 White Blood Count [place] ([facility]) red blood count 3.88 10 4.00-5.40 Below low normal Red Blood Coun t [place] ([facility]) hematocrit 32.4 % 36.0-47.0 Below low normal Hematocrit [place] ( [facility]) hemoglobin 10.7 g/dL 12.0-15.5 Below low normal Hemoglobin [place] ( [facility]) mean corpuscular hemoglobin 27.6 pg 27.0-33.0 Mean Cor puscular Hemoglobin [place] ([facility]) mean corpuscular volume 83.5 fL 80.0-96.0 Mean Corpusc ular Volume [place] ([facility]) red cell distribution width 14.2 % 11.5-14.5 Red Cell Distribution Width [place] ([facility]) mean corpuscular HGB conc 33.0 g/dL 32.0-36.5 Mean Corpu scular HGB Conc [place] ([facility]) platelet count, automated 137 10 150-450 Below low marlon l Platelet Count, Automated [place] ([facility]) nucleated red blood cell % 0.0 % 0-0 Nucleated Red Blood Cell % [place] ([facility]) ID Date Data Source [id number] 03/20/2021 05:56:00 PM EDT [place] ([facility]) Name Value Range Interpretation Code Description Data Romy rce(s) Supporting Document(s) glucose, fasting 150 mg/dL 70-100 Above high normal Glucose, Fas ting [place] ([facility]) blood urea nitrogen 10 mg/dL 7-18 Blood Urea Nitro gen [place] ([facility]) glomerular filtration rate > 60.0 >39 Glomerula r Filtration Rate [place] ([facility]) creatinine for GFR 0.67 mg/dL 0.55-1.30 Creatinine for GF R [place] ([facility]) sodium level 140 mEq/L 136-145 Sodium Level [place] ([facility]) potassium serum 3.7 mEq/L 3.5-5.1 Potassium Serum [place] ([facility]) chloride level 108 mEq/L 98-107 Above high normal Chloride Level [place] ([facility]) carbon dioxide level 24 mEq/L 21-32 Carbon Dioxide Level [place] ([facility]) AST/SGOT 15 U/L 7-37 AST/SGOT [place] ([facility]) anion gap 8 mEq/L 8-16 Anion Gap [place] ([facility]) calcium level 8.7 mg/dL 8.8-10.2 Below low normal Calcium Level AT [place] ([facility]) alkaline phosphatase 60 U/L 45-117 Alkaline Phosph atase [place] ([facility]) ALT/SGPT 14 U/L 12-78 ALT/SGPT [place] ([facility]) bilirubin,total 0.5 mg/dL 0.2-1.0 Bilirubin,total [place] ([facility]) albumin 3.0 gm/dL 3.2-5.2 Below low normal Albumin [place] ( [facility]) total protein 7.8 gm/dL 6.4-8.2 Total Protein [place] ( [facility]) albumin/globulin ratio 1.2-2.2 Below low normal Albumin /globulin Ratio [place] ([facility]) ID Date Data Source [id number] 03/20/2021 05:56:00 PM EDT [facility] Name Value Range Interpretation Code Description Data Romy rce(s) Supporting Document(s) thyroid stimulating hormone 1.890 uIU/mL 0.358-3.740 Thyroid Stimulating Hormone [place] ([facility]) ID Date Data Source [id number] 03/20/2021 05:56:00 PM EDT [place] ([facility]) Name Value Range Interpretation Code Description Data Romy rce(s) Supporting Document(s) troponin I < 0.02 < 0.10 Troponin I [place] ([facility]) ID Date Data Source [id number] 03/20/2021 05:56:00 PM EDT [facility]) Name Value Range Interpretation Code Description Data Romy rce(s) Supporting Document(s) partial thromboplastin time 33.1 seconds 24.2-38.5 Partial Thromboplastin Time [place] ([facility]) ID Date Data Source [id number] 03/20/2021 05:56:00 PM EDT [facility]) Name Value Range Interpretation Code Description Data Romy rce(s) Supporting Document(s) prothrombin time 15.6 seconds 12.5-14.3 Above high normal Prothrombi n Time [place] ([facility]) INR Inr [place] ([facility]) ID Date Data Source [id number] 03/20/2021 05:56:00 PM EDT [place] ([facility]) Name Value Range Interpretation Code Description Data Romy rce(s) Supporting Document(s) white blood count 4.0 10 4.0-10.0 White Blood Count [place] ([facility]) hemoglobin 10.7 g/dL 12.0-15.5 Below low normal Hemoglobin [place] ( [facility]) red blood count 3.88 10 4.00-5.40 Below low normal Red Blood Coun t [facility]) mean corpuscular volume 83.5 fL 80.0-96.0 Mean Corpusc ular Volume [place] ([facility]) hematocrit 32.4 % 36.0-47.0 Below low normal Hematocrit [place] ( [facility]) mean corpuscular hemoglobin 27.6 pg 27.0-33.0 Mean Cor puscular Hemoglobin [place] ([facility]) mean corpuscular HGB conc 33.0 g/dL 32.0-36.5 Mean Corpu scular HGB Conc [place] ([facility]) red cell distribution width 14.2 % 11.5-14.5 Red Cell Distribution Width [place] ([facility]) nucleated red blood cell % 0.0 % 0-0 Nucleated Red Blood Cell % [place] ([facility]) platelet count, automated 137 10 150-450 Below low marlon l Platelet Count, Automated [place] ([facility]) ID Date Data Source [id number] 03/20/2021 09:34:00 AM EDT [place] ([facility]) Name Value Range Interpretation Code Description Data Romy rce(s) Supporting Document(s) glucose, fasting 127 mg/dL 70-100 Above high normal Glucose, Fas ting [place] ([facility]) creatinine for GFR 0.76 mg/dL 0.55-1.30 Creatinine for GF R [place] ([facility]) blood urea nitrogen 14 mg/dL 7-18 Blood Urea Nitro gen [place] ([facility]) glomerular filtration rate > 60.0 >39 Glomerula r Filtration Rate [place] ([facility]) sodium level 139 mEq/L 136-145 Sodium Level [place] ([facility]) chloride level 107 mEq/L 98-107 Chloride Level [place] ([facility]) potassium serum 3.5 mEq/L 3.5-5.1 Potassium Serum ATH NA [facility]) carbon dioxide level 27 mEq/L 21-32 Carbon Dioxide Level [place] ([facility]) anion gap 5 mEq/L 8-16 Below low normal Anion Gap [place] ( [facility]) calcium level 9.7 mg/dL 8.8-10.2 Calcium Level [place] ( [facility]) ID Date Data Source [id number] 03/20/2021 09:34:00 AM EDT [place] ([facility]) Name Value Range Interpretation Code Description Data Romy rce(s) Supporting Document(s) white blood count 3.7 10 4.0-10.0 Below low normal White Blood Count [place] ([facility]) red blood count 3.93 10 4.00-5.40 Below low normal Red Blood Coun t [place] ([facility]) hemoglobin 10.6 g/dL 12.0-15.5 Below low normal Hemoglobin [place] ( [facility]) hematocrit 33.9 % 36.0-47.0 Below low normal Hematocrit [place] ( [facility]) mean corpuscular volume 86.3 fL 80.0-96.0 Mean Corpusc ular Volume [place] ([facility]) mean corpuscular HGB conc 31.3 g/dL 32.0-36.5 Below low marlon l Mean Corpuscular HGB Conc [place] ([facility]) mean corpuscular hemoglobin 27.0 pg 27.0-33.0 Mean Cor puscular Hemoglobin [place] ([facility]) platelet count, automated 132 10 150-450 Below low marlon l Platelet Count, Automated [place] ([facility]) red cell distribution width 14.1 % 11.5-14.5 Red Cell Distribution Width [place] ([facility]) nucleated red blood cell % 0.0 % 0-0 Nucleated Red Blood Cell % [place] ([facility]) ID Date Data Source [id number] 03/20/2021 09:34:00 AM EDT [place] ([facility]) Name Value Range Interpretation Code Description Data Romy rce(s) Supporting Document(s) blood urea nitrogen 14 mg/dL 7-18 Blood Urea Nitro gen [place] ([facility]) glucose, fasting 127 mg/dL 70-100 Above high normal Glucose, Fas ting [place] ([facility]) creatinine for GFR 0.76 mg/dL 0.55-1.30 Creatinine for GF R [place] ([facility]) glomerular filtration rate > 60.0 >39 Glomerula r Filtration Rate [place] ([facility]) sodium level 139 mEq/L 136-145 Sodium Level [place] ([facility]) potassium serum 3.5 mEq/L 3.5-5.1 Potassium Serum ATHE NA ([facility]) chloride level 107 mEq/L 98-107 Chloride Level [place] ([facility]) carbon dioxide level 27 mEq/L 21-32 Carbon Dioxide Level [place] ([facility]) calcium level 9.7 mg/dL 8.8-10.2 Calcium Level [place] ( [facility]) anion gap 5 mEq/L 8-16 Below low normal Anion Gap [place] ( [facility]) ID Date Data Source [id number] 03/20/2021 09:34:00 AM EDT [place] ([facility]) Name Value Range Interpretation Code Description Data Romy rce(s) Supporting Document(s) white blood count 3.7 10 4.0-10.0 Below low normal White Blood Count [place] ([facility]) red blood count 3.93 10 4.00-5.40 Below low normal Red Blood Coun t [place] ([facility]) hemoglobin 10.6 g/dL 12.0-15.5 Below low normal Hemoglobin [place] ( [facility]) hematocrit 33.9 % 36.0-47.0 Below low normal Hematocrit [place] ( [facility]) mean corpuscular hemoglobin 27.0 pg 27.0-33.0 Mean Cor puscular Hemoglobin [place] ([facility]) mean corpuscular volume 86.3 fL 80.0-96.0 Mean Corpusc ular Volume [place] ([facility]) mean corpuscular HGB conc 31.3 g/dL 32.0-36.5 Below low marlon l Mean Corpuscular HGB Conc [place] ([facility]) red cell distribution width 14.1 % 11.5-14.5 Red Cell Distribution Width [place] ([facility]) nucleated red blood cell % 0.0 % 0-0 Nucleated Red Blood Cell % [place] ([facility]) platelet count, automated 132 10 150-450 Below low marlon l Platelet Count, Automated [place] ([facility]) ID Date Data Source [id number] 03/20/2021 09:34:00 AM EDT [place] ([facility]) Name Value Range Interpretation Code Description Data Romy rce(s) Supporting Document(s) glucose, fasting 127 mg/dL 70-100 Above high normal Glucose, Fas ting [place] ([facility]) creatinine for GFR 0.76 mg/dL 0.55-1.30 Creatinine for GF R [place] ([facility]) blood urea nitrogen 14 mg/dL 7-18 Blood Urea Nitro gen [place] ([facility]) glomerular filtration rate > 60.0 >39 Glomerula r Filtration Rate [place] ([facility]) sodium level 139 mEq/L 136-145 Sodium Level [place] ([facility]) chloride level 107 mEq/L 98-107 Chloride Level [place] ([facility]) potassium serum 3.5 mEq/L 3.5-5.1 Potassium Serum ATH NA ([facility]) carbon dioxide level 27 mEq/L 21-32 Carbon Dioxide Level [place] ([facility]) anion gap 5 mEq/L 8-16 Below low normal Anion Gap [place] ( [facility]) calcium level 9.7 mg/dL 8.8-10.2 Calcium Level [place] ( [facility]) ID Date Data Source [id number] 03/20/2021 09:34:00 AM EDT [facility]) Name Value Range Interpretation Code Description Data Romy rce(s) Supporting Document(s) white blood count 3.7 10 4.0-10.0 Below low normal White Blood Count [place] ([facility]) hemoglobin 10.6 g/dL 12.0-15.5 Below low normal Hemoglobin [place] ( [facility]) red blood count 3.93 10 4.00-5.40 Below low normal Red Blood Coun t [place] ([facility]) mean corpuscular volume 86.3 fL 80.0-96.0 Mean Corpusc ular Volume [place] ([facility]) hematocrit 33.9 % 36.0-47.0 Below low normal Hematocrit [place] ( [facility]) mean corpuscular hemoglobin 27.0 pg 27.0-33.0 Mean Cor puscular Hemoglobin [place] ([facility]) mean corpuscular HGB conc 31.3 g/dL 32.0-36.5 Below low marlon l Mean Corpuscular HGB Conc [place] ([facility]) red cell distribution width 14.1 % 11.5-14.5 Red Cell Distribution Width [place] ([facility]) nucleated red blood cell % 0.0 % 0-0 Nucleated Red Blood Cell % [place] ([facility]) platelet count, automated 132 10 150-450 Below low marlon l Platelet Count, Automated [place] ([facility]) ID Date Data Source [id number] 03/20/2021 09:34:00 AM EDT [place] ([facility]) Name Value Range Interpretation Code Description Data Romy rce(s) Supporting Document(s) glucose, fasting 127 mg/dL 70-100 Above high normal Glucose, Fas ting [place] ([facility]) blood urea nitrogen 14 mg/dL 7-18 Blood Urea Nitro gen [place] ([facility]) glomerular filtration rate > 60.0 >39 Glomerula r Filtration Rate [place] ([facility]) creatinine for GFR 0.76 mg/dL 0.55-1.30 Creatinine for GF R [place] ([facility]) sodium level 139 mEq/L 136-145 Sodium Level [place] ([facility]) potassium serum 3.5 mEq/L 3.5-5.1 Potassium Serum ATH NA ([facility]) chloride level 107 mEq/L 98-107 Chloride Level [place] ([facility]) carbon dioxide level 27 mEq/L 21-32 Carbon Dioxide Level [place] ([facility]) anion gap 5 mEq/L 8-16 Below low normal Anion Gap [place] ( [facility]) calcium level 9.7 mg/dL 8.8-10.2 Calcium Level [place] ( [facility]) ID Date Data Source [id number] 03/20/2021 09:34:00 AM EDT [place] ([facility]) Name Value Range Interpretation Code Description Data Romy rce(s) Supporting Document(s) white blood count 3.7 10 4.0-10.0 Below low normal White Blood Count [place] ([facility]) red blood count 3.93 10 4.00-5.40 Below low normal Red Blood Coun t [place] ([facility]) hematocrit 33.9 % 36.0-47.0 Below low normal Hematocrit [place] ( [facility]) hemoglobin 10.6 g/dL 12.0-15.5 Below low normal Hemoglobin [place] ( [facility]) mean corpuscular volume 86.3 fL 80.0-96.0 Mean Corpusc ular Volume [place] ([facility]) mean corpuscular hemoglobin 27.0 pg 27.0-33.0 Mean Cor puscular Hemoglobin [place] ([facility]) mean corpuscular HGB conc 31.3 g/dL 32.0-36.5 Below low marlon l Mean Corpuscular HGB Conc [place] ([facility]) red cell distribution width 14.1 % 11.5-14.5 Red Cell Distribution Width [place] ([facility]) nucleated red blood cell % 0.0 % 0-0 Nucleated Red Blood Cell % [place] ([facility]) platelet count, automated 132 10 150-450 Below low marlon l Platelet Count, Automated [facility]) ID Date Data Source [id number] 02/24/2021 09:14:00 AM EDT [facility]) Name Value Range Interpretation Code Description Data Romy rce(s) Supporting Document(s) Hemoglobin A1c/Hemoglobin.total in Blood 7.2 %_of_total_HGB <5.7 Above high normal Hemoglobin a1C [place] ([facility]) ID Date Data Source [id number] 02/24/2021 09:14:00 AM EDT [place] ([facility]) Name Value Range Interpretation Code Description Data Romy rce(s) Supporting Document(s) Calcidiol [Mass/volume] in Serum or Plasma 29 NG/mL 30-100 Below low normal Vitamin D,25-Oh,total,ia [place] ([facility]) ID Date Data Source [id number] 02/24/2021 09:14:00 AM EDT [place] ([facility]) Name Value Range Interpretation Code Description Data Romy rce(s) Supporting Document(s) Cobalamin (Vitamin B12) [Mass/volume] in Serum or Plasma 1158 pg /mL 200-1100 Above high normal Vitamin B12 [place] ([facility]) Folate [Mass/volume] in Serum or Plasma 13.6 NG/mL Folate, Serum [place] ([facility]) ID Date Data Source [id number] 02/24/2021 09:14:00 AM EDT [place] ([facility]) Name Value Range Interpretation Code Description Data Romy rce(s) Supporting Document(s) Leukocytes [#/volume] in Blood by Automated count 3.8 thousand/uL 3 .8-10.8 White Blood Cell Count [place] ([facility]) Hematocrit [Volume Fraction] of Blood by Automated count 30.5 % 35.0-45.0 Below low normal Hematocrit [place] ([facility]) Erythrocyte mean corpuscular volume [Entitic volume] by Auto mated count 81.1 fL 80.0-100.0 Mcv [place] ([facility]) Erythrocytes [#/volume] in Blood by Automated count 3.76 million /uL 3.80-5.10 Below low normal Red Blood Cell Count [place] ([facility]) Erythrocyte mean corpuscular hemoglobin [Entitic mass] by Automated count 27.7 pg 27.0-33.0 Mch [place] ([facility]) Hemoglobin [Mass/volume] in Blood 10.4 g/dL 11.7-15.5 Below l ow normal Hemoglobin [place] ([facility]) Platelets [#/volume] in Blood by Automated count 158 thousand/uL 14 0-400 Platelet Count [place] ([facility]) Erythrocyte distribution width [Ratio] by Automated count 13.4 % 11.0-15.0 Rdw [place] ([facility]) Erythrocyte mean corpuscular hemoglobin concentration [Mass/volume] by Automated count 34.1 g/dL 32.0-36.0 Mchc [place] ([facility]) Platelet mean volume [Entitic volume] in Blood by Demetris 10.4 f L 7.5-12.5 Mpv [place] ([facility]) Monocytes [#/volume] in Blood by Automated count 369 cells/uL 200-9 50 Absolute Monocytes [place] ([facility]) Eosinophils [#/volume] in Blood by Automated count 407 cells/uL 15- 500 Absolute Eosinophils [place] ([facility]) Neutrophils [#/volume] in Blood by Automated count 1782 cells/uL 15 00-7800 Absolute Neutrophils [place] ([facility]) Lymphocytes [#/volume] in Blood by Automated count 1212 cells/uL 85 0-3900 Absolute Lymphocytes [place] ([facility]) Neutrophils/100 leukocytes in Blood by Automated count 46.9 % 38-80 Neutrophils [place] ([facility]) Basophils [#/volume] in Blood by Automated count 30 cells/uL 0-200 Absolute Basophils [place] ([facility]) Eosinophils/100 leukocytes in Blood by Automated count 10.7 % 0-8 Above high normal Eosinophils [place] ([facility]) Lymphocytes/100 leukocytes in Blood by Automated count 31.9 % 15-49 Lymphocytes [place] ([facility]) Monocytes/100 leukocytes in Blood by Automated count 9.7 % 0-13 Monocytes [place] ([facility]) Basophils/100 leukocytes in Blood by Automated count 0.8 % 0-2 Basophils [place] ([facility]) ID Date Data Source [id number] 02/24/2021 09:14:00 AM EDT [place] ([facility]) Name Value Range Interpretation Code Description Data Romy rce(s) Supporting Document(s) Glucose [Mass/volume] in Serum or Plasma 165 mg/dL 65-99 Above high normal Glucose [place] ([facility]) Urea nitrogen [Mass/volume] in Serum or Plasma 15 mg/dL 7-25 Urea Nitrogen (BUN) [place] ([facility]) Glomerular filtration rate/1.73 sq M.pre dicted among blacks [Volume Rate/Area] in Serum, Plasma or Blood by Creatinine-based formula (CKD-EPI) 100 mL/min/1.73m2 > or = 60 eGFR [place] ([facility]) Glomerular filtration rate/1.73 sq M.pre dicted among non-blacks [Volume Rate/Area] in Serum, Plasma or Blood by Creatinine-based formula (CKD-EPI) 87 mL/min/1.73m2 > or = 60 eGFR Non-afr. [place]an [place] ([facility]) Creatinine [Mass/volume] in Serum or Plasma 0.64 mg/dL 0.60-0.93 Creatinine [place] ([facility]) Potassium [Moles/volume] in Serum or Plasma 4.0 mmol/L 3.5-5.3 Potassium [place] ([facility]) Chloride [Moles/volume] in Serum or Plasma 104 mmol/L 98-110 Chloride [place] ([facility]) Sodium [Moles/volume] in Serum or Plasma 137 mmol/L 135-146 Sodium [place] ([facility]) Urea nitrogen/Creatinine [Mass Ratio] in Serum or Plasma not applic able 6-22 BUN/creatinine Ratio [place] ([facility]) Protein [Mass/volume] in Serum or Plasma 7.8 g/dL 6.1-8.1 Protein, Total [place] ([facility]) Calcium [Mass/volume] in Serum or Plasma 9.2 mg/dL 8.6-10.4 [facility] Carbon dioxide, total [Moles/volume] in Serum or Plasma 26 mmol/L 20-32 Carbon Dioxide [place] ([facility]) Bilirubin.total [Mass/volume] in Serum or Plasma 0.4 mg/dL 0.2-1 .2 Bilirubin, Total [place] ([facility]) Albumin [Mass/volume] in Serum or Plasma 3.7 g/dL 3.6-5.1 Albumin [place] ([facility]) Albumin/Globulin [Mass Ratio] in Serum or Plasma 0.9 (calc) 1.0-2.5 Below low normal Albumin/globulin Ratio [place] ([facility]) Globulin [Mass/volume] in Serum by calculation 4.1 g/dL_(calc) 1 .9-3.7 Above high normal Globulin [place] ([facility]) Aspartate aminotransferase [Enzymatic activity/volume] in Serum or Plasma 13 U/L 10-35 Ast [place] ([facility]) Alkaline phosphatase [Enzymatic activity/volume] in Serum or Plasma 57 U/L 37-153 Alkaline Phosphatase [place] ([facility]) Alanine aminotransferase [Enzymatic activity/volume] in Seru m or Plasma 8 U/L 6-29 Alt [place] ([facility]) ID Date Data Source [id number] 02/24/2021 09:14:00 AM EDT [place] ([facility]) Name Value Range Interpretation Code Description Data Romy rce(s) Supporting Document(s) Thyrotropin [Units/volume] in Serum or Plasma 2.47 mIU/L 0.40-4.50 Tsh [place] ([facility]) Thyroxine (T4) free [Mass/volume] in Serum or Plasma 0.9 NG/dL 0 .8-1.8 T4, Free [place] ([facility]) ID Date Data Source [id number] 02/24/2021 09:14:00 AM EDT [place] ([facility]) Name Value Range Interpretation Code Description Data Romy rce(s) Supporting Document(s) Cholesterol [Mass/volume] in Serum or Plasma 147 mg/dL <200 Cholesterol, Total [place] ([facility]) Triglyceride [Mass/volume] in Serum or Plasma 90 mg/dL <150 Triglycerides [place] ([facility]) Cholesterol in LDL [Mass/volume] in Serum or Plasma by calculation 86 mg/dL_(calc) LDL-cholesterol [place] ([facility]) Cholesterol in HDL [Mass/volume] in Serum or Plasma 43 mg/dL > or = 50 Below low normal HDL Cholesterol [place] ([facility]) Cholesterol.total/Cholesterol in HDL [Mass Ratio] in Serum o r Plasma 3.4 (calc) <5.0 Chol/hdlc Ratio [place] ([facility]) Cholesterol non HDL [Mass/volume] in Serum or Plasma 104 mg/dL_(jovanna c) <130 Non HDL Cholesterol [place] ([facility]) ID Date Data Source [id number] 02/24/2021 09:14:00 AM EDT [place] ([facility]) Name Value Range Interpretation Code Description Data Romy rce(s) Supporting Document(s) Iron [Mass/volume] in Serum or Plasma 30 mcg/dL 45-160 Bel ow low normal Iron, Total [place] ([facility]) Iron binding capacity [Mass/volume] in Serum or Plasma 276 m cg/dL_(calc) 250-450 Iron Binding Capacity [place] ([facility]) Iron saturation [Mass Fraction] in Serum or Plasma 11 %_(calc) 16-45 Below low normal % Saturation [place] ([facility]) Ferritin [Mass/volume] in Serum or Plasma 104 NG/mL 16-288 Ferritin [place] ([facility]) ID Date Data Source [id number] 02/24/2021 09:14:00 AM EDT [place] ([facility]) Name Value Range Interpretation Code Description Data Romy rce(s) Supporting Document(s) Cobalamin (Vitamin B12) [Mass/volume] in Serum or Plasma 1158 pg /mL 200-1100 Above high normal Vitamin B12 [place] ([facility]) Folate [Mass/volume] in Serum or Plasma 13.6 NG/mL Folate, Serum [place] ([facility]) ID Date Data Source [id number] 02/24/2021 09:14:00 AM EDT [place] ([facility]) Name Value Range Interpretation Code Description Data Romy rce(s) Supporting Document(s) Leukocytes [#/volume] in Blood by Automated count 3.8 thousand/uL 3 .8-10.8 White Blood Cell Count [place] ([facility]) Erythrocytes [#/volume] in Blood by Automated count 3.76 million /uL 3.80-5.10 Below low normal Red Blood Cell Count [place] ([facility]) Hematocrit [Volume Fraction] of Blood by Automated count 30.5 % 35.0-45.0 Below low normal Hematocrit [place] ([facility]) Hemoglobin [Mass/volume] in Blood 10.4 g/dL 11.7-15.5 Below l ow normal Hemoglobin [place] ([facility]) Erythrocyte mean corpuscular hemoglobin [Entitic mass] by Automated count 27.7 pg 27.0-33.0 Mch [place] ([facility]) Erythrocyte mean corpuscular volume [Entitic volume] by Auto mated count 81.1 fL 80.0-100.0 Mcv [place] ([facility]) Erythrocyte distribution width [Ratio] by Automated count 13.4 % 11.0-15.0 Rdw [place] ([facility]) Erythrocyte mean corpuscular hemoglobin concentration [Mass/volume] by Automated count 34.1 g/dL 32.0-36.0 Mchc [place] ([facility]) Platelets [#/volume] in Blood by Automated count 158 thousand/uL 14 0-400 Platelet Count [place] ([facility]) Neutrophils [#/volume] in Blood by Automated count 1782 cells/uL 15 00-7800 Absolute Neutrophils [place] ([facility]) Platelet mean volume [Entitic volume] in Blood by Demetris 10.4 f L 7.5-12.5 Mpv [place] ([facility]) Monocytes [#/volume] in Blood by Automated count 369 cells/uL 200-9 50 Absolute Monocytes [place] ([facility]) Eosinophils [#/volume] in Blood by Automated count 407 cells/uL 15- 500 Absolute Eosinophils [place] ([facility]) Lymphocytes [#/volume] in Blood by Automated count 1212 cells/uL 85 0-3900 Absolute Lymphocytes [place] ([facility]) Neutrophils/100 leukocytes in Blood by Automated count 46.9 % 38-80 Neutrophils [place] ([facility]) Basophils [#/volume] in Blood by Automated count 30 cells/uL 0-200 Absolute Basophils [place] ([facility]) Monocytes/100 leukocytes in Blood by Automated count 9.7 % 0-13 Monocytes [place] ([facility]) Lymphocytes/100 leukocytes in Blood by Automated count 31.9 % 15-49 Lymphocytes [place] ([facility]) Eosinophils/100 leukocytes in Blood by Automated count 10.7 % 0-8 Above high normal Eosinophils [place] ([facility]) Basophils/100 leukocytes in Blood by Automated count 0.8 % 0-2 Basophils [place] ([facility]) ID Date Data Source [id number] 02/24/2021 09:14:00 AM EDT [facility]) Name Value Range Interpretation Code Description Data Romy rce(s) Supporting Document(s) Urea nitrogen [Mass/volume] in Serum or Plasma 15 mg/dL 7-25 Urea Nitrogen (BUN) [place] ([facility]) Glucose [Mass/volume] in Serum or Plasma 165 mg/dL 65-99 Above high normal Glucose [place] ([facility]) Glomerular filtration rate/1.73 sq M.pre dicted among non-blacks [Volume Rate/Area] in Serum, Plasma or Blood by Creatinine-based formula (CKD-EPI) 87 mL/min/1.73m2 > or = 60 eGFR Non-afr. [place]an [place] ([facility]) Creatinine [Mass/volume] in Serum or Plasma 0.64 mg/dL 0.60-0.93 Creatinine [place] ([facility]) Glomerular filtration rate/1.73 sq M.pre dicted among blacks [Volume Rate/Area] in Serum, Plasma or Blood by Creatinine-based formula (CKD-EPI) 100 mL/min/1.73m2 > or = 60 eGFR [place] ([facility]) Urea nitrogen/Creatinine [Mass Ratio] in Serum or Plasma not applic able 6-22 BUN/creatinine Ratio [place] ([facility]) Sodium [Moles/volume] in Serum or Plasma 137 mmol/L 135-146 Sodium [place] ([facility]) Potassium [Moles/volume] in Serum or Plasma 4.0 mmol/L 3.5-5.3 Potassium [place] ([facility]) Chloride [Moles/volume] in Serum or Plasma 104 mmol/L 98-110 Chloride [place] ([facility]) Calcium [Mass/volume] in Serum or Plasma 9.2 mg/dL 8.6-10.4 Calcium [place] ([facility]) Protein [Mass/volume] in Serum or Plasma 7.8 g/dL 6.1-8.1 Protein, Total [place] ([facility]) Carbon dioxide, total [Moles/volume] in Serum or Plasma 26 mmol/L 20-32 Carbon Dioxide [place] ([facility]) Globulin [Mass/volume] in Serum by calculation 4.1 g/dL_(calc) 1 .9-3.7 Above high normal Globulin [place] ([facility]) Albumin [Mass/volume] in Serum or Plasma 3.7 g/dL 3.6-5.1 Albumin [place] ([facility]) Alkaline phosphatase [Enzymatic activity/volume] in Serum or Plasma 57 U/L 37-153 Alkaline Phosphatase [place] ([facility]) Albumin/Globulin [Mass Ratio] in Serum or Plasma 0.9 (calc) 1.0-2.5 Below low normal Albumin/globulin Ratio [place] ([facility]) Bilirubin.total [Mass/volume] in Serum or Plasma 0.4 mg/dL 0.2-1 .2 Bilirubin, Total [place] ([facility]) Aspartate aminotransferase [Enzymatic activity/volume] in Serum or Plasma 13 U/L 10-35 Ast [place] ([facility]) Alanine aminotransferase [Enzymatic activity/volume] in Seru m or Plasma 8 U/L 6-29 Alt [place] ([facility]) ID Date Data Source [id number] 02/24/2021 09:14:00 AM EDT [place] ([facility]) Name Value Range Interpretation Code Description Data Romy rce(s) Supporting Document(s) Thyrotropin [Units/volume] in Serum or Plasma 2.47 mIU/L 0.40-4.50 Tsh [place] ([facility]) Thyroxine (T4) free [Mass/volume] in Serum or Plasma 0.9 NG/dL 0 .8-1.8 T4, Free [place] ([facility]) ID Date Data Source [id number] 02/24/2021 09:14:00 AM EDT [place] ([facility]) Name Value Range Interpretation Code Description Data Romy rce(s) Supporting Document(s) Cholesterol [Mass/volume] in Serum or Plasma 147 mg/dL <200 Cholesterol, Total [place] ([facility]) Cholesterol in HDL [Mass/volume] in Serum or Plasma 43 mg/dL > or = 50 Below low normal HDL Cholesterol [place] ([facility]) Triglyceride [Mass/volume] in Serum or Plasma 90 mg/dL <150 Triglycerides [place] ([facility]) Cholesterol in LDL [Mass/volume] in Serum or Plasma by calculation 86 mg/dL_(calc) LDL-cholesterol [place] ([facility]) Cholesterol.total/Cholesterol in HDL [Mass Ratio] in Serum o r Plasma 3.4 (calc) <5.0 Chol/hdlc Ratio [place] ([facility]) Cholesterol non HDL [Mass/volume] in Serum or Plasma 104 mg/dL_(jovanna c) <130 Non HDL Cholesterol [place] ([facility]) ID Date Data Source [id number] 02/24/2021 09:14:00 AM EDT [place] ([facility]) Name Value Range Interpretation Code Description Data Romy rce(s) Supporting Document(s) Iron [Mass/volume] in Serum or Plasma 30 mcg/dL 45-160 Bel ow low normal Iron, Total [place] ([facility]) Iron binding capacity [Mass/volume] in Serum or Plasma 276 m cg/dL_(calc) 250-450 Iron Binding Capacity [place] ([facility]) Iron saturation [Mass Fraction] in Serum or Plasma 11 %_(calc) 16-45 Below low normal % Saturation [place] ([facility]) Ferritin [Mass/volume] in Serum or Plasma 104 NG/mL 16-288 Ferritin [place] ([facility]) ID Date Data Source [id number] 02/24/2021 09:14:00 AM EDT [place] ([facility]) Name Value Range Interpretation Code Description Data Romy rce(s) Supporting Document(s) Hemoglobin A1c/Hemoglobin.total in Blood 7.2 %_of_total_HGB <5.7 Above high normal Hemoglobin a1C [place] ([facility]) ID Date Data Source [id number] 02/24/2021 09:14:00 AM EDT [place] ([facility]) Name Value Range Interpretation Code Description Data Romy rce(s) Supporting Document(s) Calcidiol [Mass/volume] in Serum or Plasma 29 NG/mL 30-100 Below low normal Vitamin D,25-Oh,total,ia [place] ([facility]) ID Date Data Source [id number] 02/24/2021 09:14:00 AM EDT [place] ([facility]) Name Value Range Interpretation Code Description Data Romy rce(s) Supporting Document(s) Cobalamin (Vitamin B12) [Mass/volume] in Serum or Plasma 1158 pg /mL 200-1100 Above high normal Vitamin B12 [place] ([facility]) Folate [Mass/volume] in Serum or Plasma 13.6 NG/mL Folate, Serum [place] ([facility]) ID Date Data Source [id number] 02/24/2021 09:14:00 AM EDT [facility]) Name Value Range Interpretation Code Description Data Romy rce(s) Supporting Document(s) Leukocytes [#/volume] in Blood by Automated count 3.8 thousand/uL 3 .8-10.8 White Blood Cell Count [place] ([facility]) Hematocrit [Volume Fraction] of Blood by Automated count 30.5 % 35.0-45.0 Below low normal Hematocrit [place] ([facility] [facility]) Hemoglobin [Mass/volume] in Blood 10.4 g/dL 11.7-15.5 Below l ow normal Hemoglobin [place] ([facility]) Erythrocytes [#/volume] in Blood by Automated count 3.76 million /uL 3.80-5.10 Below low normal Red Blood Cell Count [place] ([facility]) Erythrocyte mean corpuscular hemoglobin [Entitic mass] by Automated count 27.7 pg 27.0-33.0 Mch [place] ([facility]) Erythrocyte mean corpuscular hemoglobin concentration [Mass/volume] by Automated count 34.1 g/dL 32.0-36.0 Mchc [place] ([facility]) Erythrocyte mean corpuscular volume [Entitic volume] by Auto mated count 81.1 fL 80.0-100.0 Mcv [place] ([facility]) Erythrocyte distribution width [Ratio] by Automated count 13.4 % 11.0-15.0 Rdw [place] ([facility]) Platelet mean volume [Entitic volume] in Blood by Demetris 10.4 f L 7.5-12.5 Mpv [place] ([facility]) Platelets [#/volume] in Blood by Automated count 158 thousand/uL 14 0-400 Platelet Count [place] ([facility]) Neutrophils [#/volume] in Blood by Automated count 1782 cells/uL 15 00-7800 Absolute Neutrophils [place] ([facility]) Lymphocytes [#/volume] in Blood by Automated count 1212 cells/uL 85 0-3900 Absolute Lymphocytes [place] ([facility]) Eosinophils [#/volume] in Blood by Automated count 407 cells/uL 15- 500 Absolute Eosinophils [place] ([facility]) Monocytes [#/volume] in Blood by Automated count 369 cells/uL 200-9 50 Absolute Monocytes [place] ([facility]) Neutrophils/100 leukocytes in Blood by Automated count 46.9 % 38-80 Neutrophils [place] ([facility]) Basophils [#/volume] in Blood by Automated count 30 cells/uL 0-200 Absolute Basophils [place] ([facility]) Lymphocytes/100 leukocytes in Blood by Automated count 31.9 % 15-49 Lymphocytes [place] ([facility]) Eosinophils/100 leukocytes in Blood by Automated count 10.7 % 0-8 Above high normal Eosinophils [place] ([facility]) Monocytes/100 leukocytes in Blood by Automated count 9.7 % 0-13 Monocytes [place] ([facility]) Basophils/100 leukocytes in Blood by Automated count 0.8 % 0-2 Basophils [place] ([facility]) ID Date Data Source [id number] 02/24/2021 09:14:00 AM EDT [facility]) Name Value Range Interpretation Code Description Data Romy rce(s) Supporting Document(s) Glucose [Mass/volume] in Serum or Plasma 165 mg/dL 65-99 Above high normal Glucose [place] ([facility]) Creatinine [Mass/volume] in Serum or Plasma 0.64 mg/dL 0.60-0.93 Creatinine [place] ([facility]) Urea nitrogen [Mass/volume] in Serum or Plasma 15 mg/dL 7-25 [facility]UN) [facility] Glomerular filtration rate/1.73 sq M.pre dicted among non-blacks [Volume Rate/Area] in Serum, Plasma or Blood by Creatinine-based formula (CKD-EPI) 87 mL/min/1.73m2 > or = 60 eGFR Non-afr. [place]an [place] ([facility]) Urea nitrogen/Creatinine [Mass Ratio] in Serum or Plasma not applic able 6-22 BUN/creatinine Ratio [place] ([facility]) Glomerular filtration rate/1.73 sq M.pre dicted among blacks [Volume Rate/Area] in Serum, Plasma or Blood by Creatinine-based formula (CKD-EPI) 100 mL/min/1.73m2 > or = 60 eGFR [place] ([facility]) Chloride [Moles/volume] in Serum or Plasma 104 mmol/L 98-110 Chloride [place] ([facility]) Sodium [Moles/volume] in Serum or Plasma 137 mmol/L 135-146 Sodium [place] ([facility]) Potassium [Moles/volume] in Serum or Plasma 4.0 mmol/L 3.5-5.3 Potassium [place] ([facility]) Carbon dioxide, total [Moles/volume] in Serum or Plasma 26 mmol/L 20-32 Carbon Dioxide [place] ([facility]) Protein [Mass/volume] in Serum or Plasma 7.8 g/dL 6.1-8.1 Protein, Total [place] ([facility]) Calcium [Mass/volume] in Serum or Plasma 9.2 mg/dL 8.6-10.4 Calcium [place] ([facility]) Albumin/Globulin [Mass Ratio] in Serum or Plasma 0.9 (calc) 1.0-2.5 Below low normal Albumin/globulin Ratio [place] ([facility]) Globulin [Mass/volume] in Serum by calculation 4.1 g/dL_(calc) 1 .9-3.7 Above high normal Globulin [place] ([facility]) Albumin [Mass/volume] in Serum or Plasma 3.7 g/dL 3.6-5.1 Albumin [place] ([facility]) Bilirubin.total [Mass/volume] in Serum or Plasma 0.4 mg/dL 0.2-1 .2 Bilirubin, Total [place] ([facility]) Alkaline phosphatase [Enzymatic activity/volume] in Serum or Plasma 57 U/L 37-153 Alkaline Phosphatase [place] ([facility]) Aspartate aminotransferase [Enzymatic activity/volume] in Serum or Plasma 13 U/L 10-35 Ast [place] ([facility]) Alanine aminotransferase [Enzymatic activity/volume] in Seru m or Plasma 8 U/L 6-29 Alt [place] ([facility]) ID Date Data Source [id number] 02/24/2021 09:14:00 AM EDT [place] ([facility]) Name Value Range Interpretation Code Description Data Romy rce(s) Supporting Document(s) Thyrotropin [Units/volume] in Serum or Plasma 2.47 mIU/L 0.40-4.50 Tsh [place] ([facility]) Thyroxine (T4) free [Mass/volume] in Serum or Plasma 0.9 NG/dL 0 .8-1.8 T4, Free [place] ([facility]) ID Date Data Source [id number] 02/24/2021 09:14:00 AM EDT [place] ([facility]) Name Value Range Interpretation Code Description Data Romy rce(s) Supporting Document(s) Cholesterol in HDL [Mass/volume] in Serum or Plasma 43 mg/dL > or = 50 Below low normal HDL Cholesterol [place] ([facility]) Triglyceride [Mass/volume] in Serum or Plasma 90 mg/dL <150 Triglycerides [place] ([facility]) Cholesterol [Mass/volume] in Serum or Plasma 147 mg/dL <200 Cholesterol, Total [place] ([facility]) Cholesterol.total/Cholesterol in HDL [Mass Ratio] in Serum o r Plasma 3.4 (calc) <5.0 Chol/hdlc Ratio [place] ([facility]) Cholesterol in LDL [Mass/volume] in Serum or Plasma by calculation 86 mg/dL_(calc) LDL-cholesterol [place] ([facility]) Cholesterol non HDL [Mass/volume] in Serum or Plasma 104 mg/dL_(jovanna c) <130 Non HDL Cholesterol [place] ([facility]) ID Date Data Source [id number] 02/24/2021 09:14:00 AM EDT [place] ([facility]) Name Value Range Interpretation Code Description Data Romy rce(s) Supporting Document(s) Iron [Mass/volume] in Serum or Plasma 30 mcg/dL 45-160 Bel ow low normal Iron, Total [place] ([facility]) Iron saturation [Mass Fraction] in Serum or Plasma 11 %_(calc) 16-45 Below low normal % Saturation [place] ([facility]) Iron binding capacity [Mass/volume] in Serum or Plasma 276 m cg/dL_(calc) 250-450 Iron Binding Capacity [place] ([facility]) Ferritin [Mass/volume] in Serum or Plasma 104 NG/mL 16-288 Ferritin [place] ([facility]) ID Date Data Source [id number] 02/24/2021 09:14:00 AM EDT [place] ([facility]) Name Value Range Interpretation Code Description Data Romy rce(s) Supporting Document(s) Hemoglobin A1c/Hemoglobin.total in Blood 7.2 %_of_total_HGB <5.7 Above high normal Hemoglobin a1C [place] ([facility]) ID Date Data Source [id number] 02/24/2021 09:14:00 AM EDT [place] ([facility]) Name Value Range Interpretation Code Description Data Romy rce(s) Supporting Document(s) Calcidiol [Mass/volume] in Serum or Plasma 29 NG/mL 30-100 Below low normal Vitamin D,25-Oh,total,ia [facility]) ID Date Data Source [id number] 02/24/2021 09:14:00 AM EDT [place] ([facility]) Name Value Range Interpretation Code Description Data Romy rce(s) Supporting Document(s) Cobalamin (Vitamin B12) [Mass/volume] in Serum or Plasma 1158 pg /mL 200-1100 Above high normal Vitamin B12 [place] ([facility]) Folate [Mass/volume] in Serum or Plasma 13.6 NG/mL Folate, Serum [place] ([facility]) ID Date Data Source [id number] 02/24/2021 09:14:00 AM EDT [place] ([facility]) Name Value Range Interpretation Code Description Data Romy rce(s) Supporting Document(s) Erythrocytes [#/volume] in Blood by Automated count 3.76 million /uL 3.80-5.10 Below low normal Red Blood Cell Count [place] ([facility]) Leukocytes [#/volume] in Blood by Automated count 3.8 thousand/uL 3 .8-10.8 White Blood Cell Count [place] ([facility]) Hemoglobin [Mass/volume] in Blood 10.4 g/dL 11.7-15.5 Below l ow normal Hemoglobin [place] ([facility]) Hematocrit [Volume Fraction] of Blood by Automated count 30.5 % 35.0-45.0 Below low normal Hematocrit [place] ([facility]) Erythrocyte mean corpuscular volume [Entitic volume] by Auto mated count 81.1 fL 80.0-100.0 Mcv [place] ([facility]) Erythrocyte mean corpuscular hemoglobin [Entitic mass] by Automated count 27.7 pg 27.0-33.0 Mch [place] ([facility]) Erythrocyte mean corpuscular hemoglobin concentration [Mass/volume] by Automated count 34.1 g/dL 32.0-36.0 Mchc [place] ([facility]) Platelets [#/volume] in Blood by Automated count 158 thousand/uL 14 0-400 Platelet Count [place] ([facility]) Platelet mean volume [Entitic volume] in Blood by Demetris 10.4 f L 7.5-12.5 Mpv [place] ([facility]) Erythrocyte distribution width [Ratio] by Automated count 13.4 % 11.0-15.0 Rdw [place] ([facility]) Monocytes [#/volume] in Blood by Automated count 369 cells/uL 200-9 50 Absolute Monocytes [place] ([facility]) Lymphocytes [#/volume] in Blood by Automated count 1212 cells/uL 85 0-3900 Absolute Lymphocytes [place] ([facility]) Neutrophils [#/volume] in Blood by Automated count 1782 cells/uL 15 00-7800 Absolute Neutrophils [place] ([facility]) Basophils [#/volume] in Blood by Automated count 30 cells/uL 0-200 Absolute Basophils [place] ([facility]) Neutrophils/100 leukocytes in Blood by Automated count 46.9 % 38-80 Neutrophils [place] ([facility]) Eosinophils [#/volume] in Blood by Automated count 407 cells/uL 15- 500 Absolute Eosinophils [place] ([facility]) Lymphocytes/100 leukocytes in Blood by Automated count 31.9 % 15-49 Lymphocytes [place] ([facility]) Basophils/100 leukocytes in Blood by Automated count 0.8 % 0-2 Basophils [place] ([facility]) Monocytes/100 leukocytes in Blood by Automated count 9.7 % 0-13 Monocytes [place] ([facility]) Eosinophils/100 leukocytes in Blood by Automated count 10.7 % 0-8 Above high normal Eosinophils [place] ([facility]) ID Date Data Source [id number] 02/24/2021 09:14:00 AM EDT [place] ([facility]) Name Value Range Interpretation Code Description Data Romy rce(s) Supporting Document(s) Glucose [Mass/volume] in Serum or Plasma 165 mg/dL 65-99 Above high normal Glucose [place] ([facility]) Urea nitrogen [Mass/volume] in Serum or Plasma 15 mg/dL 7-25 Urea Nitrogen (BUN) [place] ([facility]) Glomerular filtration rate/1.73 sq M.pre dicted among non-blacks [Volume Rate/Area] in Serum, Plasma or Blood by Creatinine-based formula (CKD-EPI) 87 mL/min/1.73m2 > or = 60 eGFR Non-afr. [place] ([facility]) Creatinine [Mass/volume] in Serum or Plasma 0.64 mg/dL 0.60-0.93 Creatinine [place] ([facility]) Glomerular filtration rate/1.73 sq M.pre dicted among blacks [Volume Rate/Area] in Serum, Plasma or Blood by Creatinine-based formula (CKD-EPI) 100 mL/min/1.73m2 > or = 60 eGFR [place] ([facility]) Urea nitrogen/Creatinine [Mass Ratio] in Serum or Plasma not applic able 6-22 BUN/creatinine Ratio [place] ([facility]) Sodium [Moles/volume] in Serum or Plasma 137 mmol/L 135-146 Sodium [place] ([facility]) Potassium [Moles/volume] in Serum or Plasma 4.0 mmol/L 3.5-5.3 Potassium [place] ([facility]) Chloride [Moles/volume] in Serum or Plasma 104 mmol/L 98-110 Chloride [place] ([facility]) Carbon dioxide, total [Moles/volume] in Serum or Plasma 26 mmol/L 20-32 Carbon Dioxide [place] ([facility]) Albumin [Mass/volume] in Serum or Plasma 3.7 g/dL 3.6-5.1 Albumin [place] ([facility]) Calcium [Mass/volume] in Serum or Plasma 9.2 mg/dL 8.6-10.4 Calcium [place] ([facility]) Globulin [Mass/volume] in Serum by calculation 4.1 g/dL_(calc) 1 .9-3.7 Above high normal Globulin [place] ([facility]) Protein [Mass/volume] in Serum or Plasma 7.8 g/dL 6.1-8.1 Protein, Total [place] ([facility]) Albumin/Globulin [Mass Ratio] in Serum or Plasma 0.9 (calc) 1.0-2.5 Below low normal Albumin/globulin Ratio [place] ([facility]) Bilirubin.total [Mass/volume] in Serum or Plasma 0.4 mg/dL 0.2-1 .2 Bilirubin, Total [place] ([facility]) Aspartate aminotransferase [Enzymatic activity/volume] in Serum or Plasma 13 U/L 10-35 Ast [place] ([facility]) Alkaline phosphatase [Enzymatic activity/volume] in Serum or Plasma 57 U/L 37-153 Alkaline Phosphatase [place] ([facility]) Alanine aminotransferase [Enzymatic activity/volume] in Seru m or Plasma 8 U/L 6-29 Alt [place] ([facility]) ID Date Data Source [id number] 02/24/2021 09:14:00 AM EDT [place] ([facility]) Name Value Range Interpretation Code Description Data Romy rce(s) Supporting Document(s) Thyrotropin [Units/volume] in Serum or Plasma 2.47 mIU/L 0.40-4.50 Tsh [place] ([facility]) Thyroxine (T4) free [Mass/volume] in Serum or Plasma 0.9 NG/dL 0 .8-1.8 T4, Free [place] ([facility]) ID Date Data Source [id number] 02/24/2021 09:14:00 AM EDT [place] ([facility]) Name Value Range Interpretation Code Description Data Romy rce(s) Supporting Document(s) Cholesterol [Mass/volume] in Serum or Plasma 147 mg/dL <200 Cholesterol, Total [place] ([facility]) Triglyceride [Mass/volume] in Serum or Plasma 90 mg/dL <150 Triglycerides [place] ([facility]) Cholesterol in HDL [Mass/volume] in Serum or Plasma 43 mg/dL > or = 50 Below low normal HDL Cholesterol [place] ([facility]) Cholesterol in LDL [Mass/volume] in Serum or Plasma by calculation 86 mg/dL_(calc) LDL-cholesterol [place] ([facility]) Cholesterol non HDL [Mass/volume] in Serum or Plasma 104 mg/dL_(jovanna c) <130 Non HDL Cholesterol [place] ([facility]) Cholesterol.total/Cholesterol in HDL [Mass Ratio] in Serum o r Plasma 3.4 (calc) <5.0 Chol/hdlc Ratio [place] ([facility]) ID Date Data Source [id number] 02/24/2021 09:14:00 AM [facility] Name Value Range Interpretation Code Description Data Romy rce(s) Supporting Document(s) Iron [Mass/volume] in Serum or Plasma 30 mcg/dL 45-160 Bel ow low normal Iron, Total [place] ([facility]) Iron binding capacity [Mass/volume] in Serum or Plasma 276 m cg/dL_(calc) 250-450 Iron Binding Capacity [place] ([facility]) Iron saturation [Mass Fraction] in Serum or Plasma 11 %_(calc) 16-45 Below low normal % Saturation [place] ([facility]) Ferritin [Mass/volume] in Serum or Plasma 104 NG/mL 16-288 Ferritin [place] ([facility]) ID Date Data Source [id number] 02/24/2021 09:14:00 AM EDT [facility]) Name Value Range Interpretation Code Description Data Romy rce(s) Supporting Document(s) Hemoglobin A1c/Hemoglobin.total in Blood 7.2 %_of_total_HGB <5.7 Above high normal Hemoglobin a1C [place] ([facility]) ID Date Data Source [id number] 02/24/2021 09:14:00 AM EDT [place] ([facility]) Name Value Range Interpretation Code Description Data Romy rce(s) Supporting Document(s) Calcidiol [Mass/volume] in Serum or Plasma 29 NG/mL 30-100 Below low normal Vitamin D,25-Oh,total,ia [place] ([facility]) ID Date Data Source [id number] 02/24/2021 09:14:00 AM EDT [facility]) Name Value Range Interpretation Code Description Data Romy rce(s) Supporting Document(s) Cholesterol [Mass/volume] in Serum or Plasma 147 mg/dL <200 Cholesterol, Total [place] ([facility]) Triglyceride [Mass/volume] in Serum or Plasma 90 mg/dL <150 Triglycerides [place] ([facility]) Cholesterol in HDL [Mass/volume] in Serum or Plasma 43 mg/dL > or = 50 Below low normal HDL Cholesterol [place] ([facility]) Cholesterol.total/Cholesterol in HDL [Mass Ratio] in Serum o r Plasma 3.4 (calc) <5.0 Chol/hdlc Ratio [place] ([facility]) Cholesterol in LDL [Mass/volume] in Serum or Plasma by calculation 86 mg/dL_(calc) LDL-cholesterol [place] ([facility]) Cholesterol non HDL [Mass/volume] in Serum or Plasma 104 mg/dL_(jovanna c) <130 Non HDL Cholesterol [place] ([facility]) ID Date Data Source [id number] 02/16/2021 03:11:00 PM EDT [facility]) Name Value Range Interpretation Code Description Data Romy rce(s) Supporting Document(s) Hemoglobin A1c/Hemoglobin.total in Blood 7.6 % Abnormal (applies to non- numeric results) Hba1C [place] ([facility]) ID Date Data Source [id number] 02/16/2021 03:11:00 PM EDT [facility]) Name Value Range Interpretation Code Description Data Romy rce(s) Supporting Document(s) Hemoglobin A1c/Hemoglobin.total in Blood 7.6 % Abnormal (applies to non- numeric results) Hba1C [place] ([facility]) ID Date Data Source [id number] 02/16/2021 03:11:00 PM EDT [facility]) Name Value Range Interpretation Code Description Data Romy rce(s) Supporting Document(s) Hemoglobin A1c/Hemoglobin.total in Blood 7.6 % Abnormal (applies to non- numeric results) Hba1C [place] ([facility]) ID Date Data Source [id number] 02/16/2021 03:11:00 PM EDT [facility]) Name Value Range Interpretation Code Description Data Romy rce(s) Supporting Document(s) Hemoglobin A1c/Hemoglobin.total in Blood 7.6 % Abnormal (applies to non- numeric results) Hba1C [place] ([facility]) ID Date Data Source [id number] 02/16/2021 03:11:00 PM EDT [facility]) Name Value Range Interpretation Code Description Data Romy rce(s) Supporting Document(s) Hemoglobin A1c/Hemoglobin.total in Blood 7.6 % Abnormal (applies to non- numeric results) Hba1C [place] ([facility]) ID Date Data Source [id number] 02/16/2021 03:11:00 PM EDT [facility]) Name Value Range Interpretation Code Description Data Romy rce(s) Supporting Document(s) Hemoglobin A1c/Hemoglobin.total in Blood 7.6 % Abnormal (applies to non- numeric results) Hba1C [place] ([facility]) Procedure Social History Code Duration Value Status Description Data Source(s ) Smoking 07/26/2021 12:00:00 AM EST Never Smoker completed Never S moker [email or web address] ([facility]) Smoking 07/26/2021 12:00:00 AM EST Never Smoker completed Never S moker [email or web address] ([facility]) Smoking 07/26/2021 12:00:00 AM EST Never Smoker completed Never S moker [email or web address] ([facility]) Smoking 07/20/2021 12:00:00 AM EST Never Smoker completed Never S moker [email or web address] ([facility]) Smoking 07/13/2021 12:00:00 AM EST Never Smoker completed Never S moker [email or web address] ([facility]) Smoking 06/30/2021 12:00:00 AM EDT Never Smoker completed Never S moker [email or web address] ([facility]) Smoking 06/30/2021 12:00:00 AM EDT Never Smoker completed Never S moker [email or web address] ([facility]) Smoking 06/23/2021 12:00:00 AM EDT Never Smoker completed Never S moker [email or web address] ([facility]) Smoking 06/23/2021 12:00:00 AM EDT Never Smoker completed Never S moker [email or web address] ([facility]) Smoking 06/09/2021 12:00:00 AM EDT Never Smoker completed Never S moker [email or web address] ([facility]) Smoking 05/26/2021 12:00:00 AM EDT Never Smoker completed Never S moker [email or web address] ([facility]) Smoking 05/19/2021 12:00:00 AM EDT Never Smoker completed Never S moker eCW1 ([facility]) Smoking 05/12/2021 12:00:00 AM EDT Never Smoker completed Never S moker eCW1 ([facility]) Smoking 05/12/2021 12:00:00 AM EDT Never Smoker completed Never S moker eCW1 ([facility]) Smoking 04/21/2021 12:00:00 AM EDT Never Smoker completed Never S moker eCW1 ([facility]) Smoking 04/21/2021 12:00:00 AM EDT Never Smoker completed Never S moker eCW1 ([facility]) Smoking 04/21/2021 12:00:00 AM EDT Never Smoker completed Never S moker eCW1 ([facility]) Smoking 04/14/2021 12:00:00 AM EDT Never Smoker completed Never S moker eCW1 ([facility]) Smoking 04/14/2021 12:00:00 AM EDT Never Smoker completed Never S moker eCW1 ([facility]) Smoking 04/07/2021 12:00:00 AM EDT Never Smoker completed Never S moker eCW1 ([facility]) Smoking 03/31/2021 12:00:00 AM EDT Never Smoker completed Never S moker eCW1 ([facility]) Smoking 03/17/2021 12:00:00 AM EDT Never Smoker completed Never S moker eCW1 ([facility]) Smoking 03/17/2021 12:00:00 AM EDT Never Smoker completed Never S moker eCW1 ([facility]) Smoking 03/17/2021 12:00:00 AM EDT Never Smoker completed Never S moker eCW1 ([facility]) Smoking 03/10/2021 12:00:00 AM EDT Never Smoker completed Never S moker eCW1 ([facility]) Smoking 02/24/2021 12:00:00 AM EDT Never Smoker completed Never S moker [email or web address] ([facility]) Smoking 02/24/2021 12:00:00 AM EDT Never Smoker completed Never S moker eCW1 ([facility]) Smoking 01/27/2021 12:00:00 AM EDT Never Smoker completed Never S moker eCW1 ([facility]) Smoking 01/27/2021 12:00:00 AM EDT Never Smoker completed Never S moker [email or web address] ([facility]) Smoking 01/19/2021 12:00:00 AM EDT Never Smoker completed Never S moker eCW1 ([facility]) Smoking 01/12/2021 12:00:00 AM EDT Never Smoker completed Never S moker [email or web address] ([facility]) Smoking 01/12/2021 12:00:00 AM EDT Never Smoker completed Never S moker [email or web address] ([facility]) Smoking 12/29/2020 12:00:00 AM EDT Never Smoker completed Never S moker eCW1 ([facility]) Smoking 12/23/2020 12:00:00 AM EDT Never Smoker completed Never S moker eCW1 ([facility]) Smoking 12/09/2020 12:00:00 AM EDT Never Smoker completed Never S moker eCW1 ([facility]) Smoking 12/02/2020 12:00:00 AM EDT Never Smoker completed Never S moker eCW1 ([facility]) Smoking 11/23/2020 12:00:00 AM EDT Never Smoker completed Never S moker eCW1 ([facility]) Smoking 11/23/2020 12:00:00 AM EDT Never Smoker completed Never S moker eCW1 ([facility]) Smoking 11/16/2020 12:00:00 AM EDT Never Smoker completed Never S moker eCW1 ([facility]) Smoking 11/16/2020 12:00:00 AM EDT Never Smoker completed Never S moker eCW1 ([facility]) Smoking 11/01/2020 12:00:00 AM EST Never Smoker completed Never S moker eCW1 ([facility]) Smoking 10/17/2020 12:00:00 AM EST Never Smoker completed Never S moker eCW1 ([facility]) Smoking 10/17/2020 12:00:00 AM EST Never Smoker completed Never S moker eCW1 ([facility]) Smoking 10/17/2020 12:00:00 AM EST Never Smoker completed Never S moker eCW1 ([facility]) Smoking 10/17/2020 12:00:00 AM EST Never Smoker completed Never S moker eCW1 ([facility]) Smoking 10/07/2020 12:00:00 AM EST Never Smoker completed Never S moker eCW1 ([facility]) Smoking 10/07/2020 12:00:00 AM EST Never Smoker completed Never S moker eCW1 ([facility]) Smoking 09/30/2020 12:00:00 AM EST Never Smoker completed Never S moker eCW1 ([facility]) Smoking 09/23/2020 12:00:00 AM EST Never Smoker completed Never S moker eCW1 ([facility]) Smoking 09/14/2020 12:00:00 AM EST Never Smoker completed Never S moker eCW1 ([facility]) Smoking 08/24/2020 12:00:00 AM EST Never Smoker completed Never S moker eCW1 ([facility]) Smoking 08/24/2020 12:00:00 AM EST Never Smoker completed Never S moker eCW1 ([facility]) Smoking 08/17/2020 12:00:00 AM EST Never Smoker completed Never S moker eCW1 ([facility]) Smoking 08/17/2020 12:00:00 AM EST Never Smoker completed Never S moker eCW1 ([facility]) Smoking 08/11/2020 12:00:00 AM EST Never Smoker completed Never S moker eCW1 ([facility]) Smoking 08/11/2020 12:00:00 AM EST Never Smoker completed Never S moker eCW1 ([facility]) Smoking 08/03/2020 12:00:00 AM EST Never Smoker completed Never S moker eCW1 ([facility]) Smoking 08/03/2020 12:00:00 AM EST Never Smoker completed Never S moker eCW1 ([facility]) Smoking 08/03/2020 12:00:00 AM EST Never Smoker completed Never S moker eCW1 ([facility]) Smoking 08/03/2020 12:00:00 AM EST Never Smoker completed Never S moker eCW1 ([facility]) Smoking 07/15/2020 12:00:00 AM EST Never Smoker completed Never S moker eCW1 ([facility]) Smoking 07/15/2020 12:00:00 AM EST Never Smoker completed Never S moker eCW1 ([facility]) Smoking 07/08/2020 12:00:00 AM EST Never Smoker completed Never S moker eCW1 ([facility]) Smoking 07/08/2020 12:00:00 AM EST Never Smoker completed Never S moker eCW1 ([facility]) Smoking 07/01/2020 12:00:00 AM EDT Never Smoker completed Never S moker eCW1 ([facility]) Smoking 07/01/2020 12:00:00 AM EDT Never Smoker completed Never S moker eCW1 ([facility]) Smoking 06/28/2020 12:00:00 AM EDT Never Smoker completed Never S moker eCW1 ([facility]) Smoking 06/28/2020 12:00:00 AM EDT Never Smoker completed Never S moker eCW1 ([facility]) Smoking 06/24/2020 12:00:00 AM EDT Never Smoker completed Never S moker eCW1 ([facility]) Smoking 06/24/2020 12:00:00 AM EDT Never Smoker completed Never S moker eCW1 ([facility]) Smoking 06/24/2020 12:00:00 AM EDT Never Smoker completed Never S moker eCW1 ([facility]) Vital Signs ID Date Data Source UNK Name Value Range Interpretation Code Description Data Source(s) Body weight 111 [lb_av] 111 [lb_av] eCW1 ([facility]) Body weight 50.35 kg 50.35 kg eCW1 ([facility]) Body height 68 [in_i] 68 [in_i] eCW1 ([facility]) Body mass index (BMI) [Ratio] 16.88 kg/m2 16.88 kg/m2 W1 ([facility]) Heart rate 87 /min 87 /min eCW1 ([facility]) Respiratory rate 18 /min 18 /min eCW1 ([facility]) Body temperature 97.1 [degF] 97.1 [degF] eCW1 ( [facility]) Systolic blood pressure 136 mm[Hg] 136 mm[Hg] e CW1 ([facility]) Diastolic blood pressure 60 mm[Hg] 60 mm[Hg] eCW1 ([facility]) Body weight 111 [lb_av] 111 [lb_av] eCW1 ([facility]) Body height 68 [in_i] 68 [in_i] eCW1 ([facility]) Body mass index (BMI) [Ratio] 16.88 kg/m2 16.88 kg/m2 eCW1 ([facility]) Heart rate 82 /min 82 /min eCW1 ([facility]) Respiratory rate 18 /min 18 /min eCW1 ([facility]) Body temperature 96.3 [degF] 96.3 [degF] eCW1 ( [facility]) Systolic blood pressure 123 mm[Hg] 123 mm[Hg] e CW1 ([facility]) Diastolic blood pressure 58 mm[Hg] 58 mm[Hg] eCW1 ([facility]) Body weight 111 [lb_av] 111 [lb_av] eCW1 ([facility]) Body height 68 [in_i] 68 [in_i] eCW1 ([facility]) Body mass index (BMI) [Ratio] 16.88 kg/m2 16.88 kg/m2 eCW1 ([facility]) Heart rate 84 /min 84 /min eCW1 ([facility]) Respiratory rate 16 /min 16 /min eCW1 ([facility]) Body temperature 97.6 [degF] 97.6 [degF] eCW1 ( [facility]) Systolic blood pressure 127 mm[Hg] 127 mm[Hg] e CW1 ([facility]) Diastolic blood pressure 60 mm[Hg] 60 mm[Hg] eCW1 ([facility]) Body weight 111 [lb_av] 111 [lb_av] eCW1 ([facility]) Body height 68 [in_i] 68 [in_i] eCW1 ([facility]) Body mass index (BMI) [Ratio] 16.88 kg/m2 16.88 kg/m2 eCW1 ([facility]) Heart rate 91 /min 91 /min eCW1 ([facility]) Respiratory rate 20 /min 20 /min eCW1 ([facility]) Body temperature 97 [degF] 97 [degF] eCW1 ([facility]) Systolic blood pressure 123 mm[Hg] 123 mm[Hg] e CW1 ([facility]) Diastolic blood pressure 66 mm[Hg] 66 mm[Hg] eCW1 ([facility]) Diastolic blood pressure 73 mm[Hg] 73 mm[Hg] [place] ([facility]) Body height 68 [in_i] 68 [in_i] [place] ([facility]) Body mass index (BMI) [Ratio] 16.9 kg/m2 16.9 k g/m2 [place] ([facility]) Systolic blood pressure 125 mm[Hg] 125 mm[Hg] A THENA ([facility]) Body weight 1776 [oz_av] 1776 [oz_av] [place] ([facility]) Body weight 114 [lb_av] 114 [lb_av] eCW1 ([facility]) Body height 68 [in_i] 68 [in_i] eCW1 ([facility]) Body mass index (BMI) [Ratio] 17.33 kg/m2 17.33 kg/m2 eCW1 ([facility]) Heart rate 93 /min 93 /min eCW1 ([facility]) Respiratory rate 18 /min 18 /min eCW1 ([facility]) Body temperature 98.3 [degF] 98.3 [degF] eCW1 ( [facility]) Systolic blood pressure 134 mm[Hg] 134 mm[Hg] e CW1 ([facility]) Diastolic blood pressure 63 mm[Hg] 63 mm[Hg] eCW1 ([facility]) Body weight 114 [lb_av] 114 [lb_av] eCW1 ([facility]) Body height 68 [in_i] 68 [in_i] eCW1 ([facility]) Body mass index (BMI) [Ratio] 17.33 kg/m2 17.33 kg/m2 eCW1 ([facility]) Heart rate 77 /min 77 /min eCW1 ([facility]) Respiratory rate 18 /min 18 /min eCW1 ([facility]) Body temperature 98.2 [degF] 98.2 [degF] eCW1 ( [facility]) Systolic blood pressure 126 mm[Hg] 126 mm[Hg] e CW1 ([facility]) Diastolic blood pressure 57 mm[Hg] 57 mm[Hg] eCW1 ([facility]) Body weight 114 [lb_av] 114 [lb_av] eCW1 ([facility]) Body height 68 [in_i] 68 [in_i] eCW1 ([facility]) Body mass index (BMI) [Ratio] 17.33 kg/m2 17.33 kg/m2 eCW1 ([facility]) Heart rate 55 /min 55 /min eCW1 ([facility]) Respiratory rate 16 /min 16 /min eCW1 ([facility]) Body temperature 98.3 [degF] 98.3 [degF] eCW1 ( [facility]) Systolic blood pressure 119 mm[Hg] 119 mm[Hg] e CW1 ([facility]) Diastolic blood pressure 61 mm[Hg] 61 mm[Hg] eCW1 ([facility]) Diastolic blood pressure 76 mm[Hg] 76 mm[Hg] [place] ([facility]) Body height 68 [in_i] 68 [in_i] [place] ([facility]) Body mass index (BMI) [Ratio] 17 kg/m2 17 kg/ m2 [place] ([facility]) Systolic blood pressure 116 mm[Hg] 116 mm[Hg] A THENA ([facility]) Body weight 1784 [oz_av] 1784 [oz_av] [place] ([facility]) Diastolic blood pressure 76 mm[Hg] 76 mm[Hg] [place] ([facility]) Body height 68 [in_i] 68 [in_i] [place] ([facility]) Body mass index (BMI) [Ratio] 17 kg/m2 17 kg/ m2 [place] ([facility]) Systolic blood pressure 116 mm[Hg] 116 mm[Hg] A THENA ([facility]) Body weight 1784 [oz_av] 1784 [oz_av] [place] ([facility]) Body weight 114 [lb_av] 114 [lb_av] eCW1 ([facility]) Body weight 51.71 kg 51.71 kg eCW1 ([facility]) Body height 68 [in_i] 68 [in_i] eCW1 ([facility]) Body mass index (BMI) [Ratio] 17.33 kg/m2 17.33 kg/m2 W1 ([facility]) Heart rate 75 /min 75 /min eCW1 ([facility]) Respiratory rate 18 /min 18 /min eCW1 ([facility]) Body temperature 98.4 [degF] 98.4 [degF] eCW1 ( [facility]) Systolic blood pressure 153 mm[Hg] 153 mm[Hg] e CW1 ([facility]) Diastolic blood pressure 67 mm[Hg] 67 mm[Hg] eCW1 ([facility]) Body mass index (BMI) [Ratio] 17.33 kg/m2 17.33 kg/m2 eCW1 ([facility]) Body height 68 [in_i] 68 [in_i] eCW1 ([facility]) Body temperature 98.4 [degF] 98.4 [degF] eCW1 ( [facility]) Respiratory rate 18 /min 18 /min eCW1 ([facility]) Systolic blood pressure 122 mm[Hg] 122 mm[Hg] e CW1 ([facility]) Body weight 114 [lb_av] 114 [lb_av] eCW1 ([facility]) Body weight 51.71 kg 51.71 kg eCW1 ([facility]) Diastolic blood pressure 58 mm[Hg] 58 mm[Hg] eCW1 ([facility]) Heart rate 72 /min 72 /min eCW1 ([facility]) Body weight 114 [lb_av] 114 [lb_av] eCW1 ([facility]) Body height 68 [in_i] 68 [in_i] eCW1 ([facility]) Body mass index (BMI) [Ratio] 17.33 kg/m2 17.33 kg/m2 eCW1 ([facility]) Heart rate 94 /min 94 /min eCW1 ([facility]) Respiratory rate 18 /min 18 /min eCW1 ([facility]) Body temperature 98.4 [degF] 98.4 [degF] eCW1 ( [facility]) Systolic blood pressure 127 mm[Hg] 127 mm[Hg] e CW1 ([facility]) Diastolic blood pressure 60 mm[Hg] 60 mm[Hg] eCW1 ([facility]) Body mass index (BMI) [Ratio] 17 kg/m2 17 kg/ m2 [place] ([facility]) Diastolic blood pressure 72 mm[Hg] 72 mm[Hg] [place] ([facility]) Body height 68 [in_i] 68 [in_i] [place] ([facility]) Systolic blood pressure 109 mm[Hg] 109 mm[Hg] A THENA ([facility]) Body weight 1784 [oz_av] 1784 [oz_av] [place] ([facility]) Diastolic blood pressure 72 mm[Hg] 72 mm[Hg] [place] ([facility]) Body height 68 [in_i] 68 [in_i] [place] ([facility]) Body mass index (BMI) [Ratio] 17 kg/m2 17 kg/ m2 [place] ([facility]) Systolic blood pressure 109 mm[Hg] 109 mm[Hg] A [facility] ([facility]) Body weight 1784 [oz_av] 1784 [oz_av] [place] ([facility]) Diastolic blood pressure 72 mm[Hg] 72 mm[Hg] [place] ([facility]) Body height 68 [in_i] 68 [in_i] [place] ([facility]) Body mass index (BMI) [Ratio] 17 kg/m2 17 kg/ m2 [place] ([facility]) Systolic blood pressure 109 mm[Hg] 109 mm[Hg] A THENA ([facility]) Body weight 1784 [oz_av] 1784 [oz_av] [place] ([facility]) Body weight 114 [lb_av] 114 [lb_av] eCW1 ([facility]) Body height 68 [in_i] 68 [in_i] eCW1 ([facility]) Body mass index (BMI) [Ratio] 17.33 kg/m2 17.33 kg/m2 eCW1 ([facility]) Body temperature 98.3 [degF] 98.3 [degF] eCW1 ( [facility]) Systolic blood pressure 128 mm[Hg] 128 mm[Hg] e CW1 ([facility]) Diastolic blood pressure 58 mm[Hg] 58 mm[Hg] eCW1 ([facility]) Heart rate 74 /min 74 /min eCW1 ([facility]) Respiratory rate 18 /min 18 /min eCW1 ([facility]) Body weight 114 [lb_av] 114 [lb_av] eCW1 ([facility]) Body height 68 [in_i] 68 [in_i] eCW1 ([facility]) Body mass index (BMI) [Ratio] 18.4 kg/m2 18.4 k g/m2 eCW1 ([facility]) Heart rate 69 /min 69 /min eCW1 ([facility]) Respiratory rate 18 /min 18 /min eCW1 ([facility]) Body temperature 98.3 [degF] 98.3 [degF] eCW1 ( [facility]) Systolic blood pressure 107 mm[Hg] 107 mm[Hg] e CW1 ([facility]) Diastolic blood pressure 53 mm[Hg] 53 mm[Hg] eCW1 ([facility]) Diastolic blood pressure 55 mm[Hg] 55 mm[Hg] eCW1 ([facility]) Body weight 114 [lb_av] 114 [lb_av] eCW1 ([facility]) Body weight kg eCW1 ([facility]) Body height 68 [in_i] 68 [in_i] eCW1 ([facility]) Body mass index (BMI) [Ratio] 17.33 kg/m2 17.33 kg/m2 eCW1 ([facility]) Heart rate 81 /min 81 /min eCW1 ([facility]) Respiratory rate 18 /min 18 /min eCW1 ([facility]) Body temperature 97.0 [degF] 97.0 [degF] eCW1 ( [facility]) Systolic blood pressure 117 mm[Hg] 117 mm[Hg] e CW1 ([facility]) Diastolic blood pressure 68 mm[Hg] 68 mm[Hg] [place] ([facility]) Body height 68 [in_i] 68 [in_i] [place] ([facility]) Body mass index (BMI) [Ratio] 16.9 kg/m2 16.9 k g/m2 [place] ([facility]) Systolic blood pressure 104 mm[Hg] 104 mm[Hg] A [facility] ([facility]) Body weight 1778 [oz_av] 1778 [oz_av] [place] ([facility]) Body height 68 [in_i] 68 [in_i] [place] ([facility]) Body mass index (BMI) [Ratio] 16.9 kg/m2 16.9 k g/m2 [place] ([facility]) Systolic blood pressure 104 mm[Hg] 104 mm[Hg] A [facility] ([facility]) Body weight 1778 [oz_av] 1778 [oz_av] [place] ([facility]) Diastolic blood pressure 68 mm[Hg] 68 mm[Hg] [place] ([facility]) Diastolic blood pressure 68 mm[Hg] 68 mm[Hg] [place] ([facility]) Body height 68 [in_i] 68 [in_i] [place] ([facility]) Body mass index (BMI) [Ratio] 16.9 kg/m2 16.9 k g/m2 [place] ([facility]) Systolic blood pressure 104 mm[Hg] 104 mm[Hg] A THENA ([facility]) Body weight 1778 [oz_av] 1778 [oz_av] [place] ([facility]) Diastolic blood pressure 68 mm[Hg] 68 mm[Hg] [place] ([facility]) Body height 68 [in_i] 68 [in_i] [place] ([facility]) Body mass index (BMI) [Ratio] 16.9 kg/m2 16.9 k g/m2 [place] ([facility]) Systolic blood pressure 104 mm[Hg] 104 mm[Hg] A THENA ([facility]) Body weight 1778 [oz_av] 1778 [oz_av] [place] ([facility]) Body weight 114 [lb_av] 114 [lb_av] eCW1 ([facility]) Respiratory rate 18 /min 18 /min eCW1 ([facility]) Body temperature 94.7 [degF] 94.7 [degF] eCW1 ( [facility]) Systolic blood pressure 133 mm[Hg] 133 mm[Hg] e CW1 ([facility]) Body mass index (BMI) [Ratio] 17.33 kg/m2 17.33 kg/m2 eCW1 ([facility]) Heart rate 80 /min 80 /min eCW1 ([facility]) Diastolic blood pressure 60 mm[Hg] 60 mm[Hg] eCW1 ([facility]) Body weight kg eCW1 ([facility]) Body height 68 [in_i] 68 [in_i] eCW1 ([facility]) Body weight 114 [lb_av] 114 [lb_av] eCW1 ([facility]) Body weight kg eCW1 ([facility]) Body height 68 [in_i] 68 [in_i] eCW1 ([facility]) Body mass index (BMI) [Ratio] 17.33 kg/m2 17.33 kg/m2 eCW1 ([facility]) Heart rate 61 /min 61 /min eCW1 ([facility]) Respiratory rate 17 /min 17 /min eCW1 ([facility]) Body temperature 94.5 [degF] 94.5 [degF] eCW1 ( [facility]) Systolic blood pressure 142 mm[Hg] 142 mm[Hg] e CW1 ([facility]) Diastolic blood pressure 65 mm[Hg] 65 mm[Hg] eCW1 ([facility]) Body weight 114 [lb_av] 114 [lb_av] eCW1 ([facility]) Body height 68 [in_i] 68 [in_i] eCW1 ([facility]) Body mass index (BMI) [Ratio] 17.33 kg/m2 17.33 kg/m2 eCW1 ([facility]) Heart rate 94 /min 94 /min eCW1 ([facility]) Systolic blood pressure 126 mm[Hg] 126 mm[Hg] e CW1 ([facility]) Diastolic blood pressure 55 mm[Hg] 55 mm[Hg] eCW1 ([facility]) Body weight kg eCW1 ([facility]) Respiratory rate 21 /min 21 /min eCW1 ([facility]) Body temperature 97.1 [degF] 97.1 [degF] eCW1 ( [facility]) Body height 68 [in_i] 68 [in_i] [place] ([facility]) Body height 68 [in_i] 68 [in_i] [place] ([facility]) Body height 68 [in_i] 68 [in_i] [place] ([facility]) Body height 68 [in_i] 68 [in_i] [place] ([facility]) Body height 68 [in_i] 68 [in_i] [place] ([facility]) Body weight kg eCW1 ([facility]) Body weight 114 [lb_av] 114 [lb_av] eCW1 ([facility]) Body height 68 [in_i] 68 [in_i] eCW1 ([facility]) Body mass index (BMI) [Ratio] 17.33 kg/m2 17.33 kg/m2 eCW1 ([facility]) Heart rate 105 /min 105 /min eCW1 ([facility]) Respiratory rate 19 /min 19 /min eCW1 ([facility]) Body temperature 95.6 [degF] 95.6 [degF] eCW1 ( [facility]) Systolic blood pressure 139 mm[Hg] 139 mm[Hg] e CW1 ([facility]) Diastolic blood pressure 91 mm[Hg] 91 mm[Hg] eCW1 ([facility]) Diastolic blood pressure 72 mm[Hg] 72 mm[Hg] [place] ([facility]) Systolic blood pressure 112 mm[Hg] 112 mm[Hg] A [facility] ([facility]) Body weight 1832 [oz_av] 1832 [oz_av] [place] ([facility]) Body height 68 [in_i] 68 [in_i] [place] ([facility]) Body mass index (BMI) [Ratio] 17.4 kg/m2 17.4 k g/m2 [place] ([facility]) Diastolic blood pressure 72 mm[Hg] 72 mm[Hg] [place] ([facility]) Body height 68 [in_i] 68 [in_i] [place] ([facility]) Body mass index (BMI) [Ratio] 17.4 kg/m2 17.4 k g/m2 [place] ([facility]) Systolic blood pressure 112 mm[Hg] 112 mm[Hg] A THENA ([facility]) Body weight 1832 [oz_av] 1832 [oz_av] [place] ([facility]) Diastolic blood pressure 72 mm[Hg] 72 mm[Hg] [place] ([facility]) Body height 68 [in_i] 68 [in_i] [place] ([facility]) Body mass index (BMI) [Ratio] 17.4 kg/m2 17.4 k g/m2 [place] ([facility]) Systolic blood pressure 112 mm[Hg] 112 mm[Hg] A THENA ([facility]) Body weight 1832 [oz_av] 1832 [oz_av] [place] ([facility]) Body mass index (BMI) [Ratio] 17.4 kg/m2 17.4 k g/m2 [place] ([facility]) Systolic blood pressure 112 mm[Hg] 112 mm[Hg] A THENA ([facility]) Body weight 1832 [oz_av] 1832 [oz_av] [place] ([facility]) Diastolic blood pressure 72 mm[Hg] 72 mm[Hg] [place] ([facility]) Body height 68 [in_i] 68 [in_i] [place] ([facility]) Body weight 1832 [oz_av] 1832 [oz_av] [place] ([facility]) Diastolic blood pressure 72 mm[Hg] 72 mm[Hg] [place] ([facility]) Body height 68 [in_i] 68 [in_i] [place] ([facility]) Body mass index (BMI) [Ratio] 17.4 kg/m2 17.4 k g/m2 [place] ([facility]) Systolic blood pressure 112 mm[Hg] 112 mm[Hg] [facility] Diastolic blood pressure 72 mm[Hg] 72 mm[Hg] [place] ([facility]) Body height 68 [in_i] 68 [in_i] [place] ([facility]) Body mass index (BMI) [Ratio] 17.4 kg/m2 17.4 k g/m2 [place] ([facility]) Systolic blood pressure 112 mm[Hg] 112 mm[Hg] A THENA ([facility]) Body weight 1832 [oz_av] 1832 [oz_av] [place] ([facility]) Body weight 132 [lb_av] 132 [lb_av] eCW1 ([facility]) Body weight kg eCW1 ([facility] [facility] Body height 68 [in_i] 68 [in_i] eCW1 ([facility]) Body mass index (BMI) [Ratio] 20.07 kg/m2 20.07 kg/m2 eCW1 ([facility]) Heart rate 89 /min 89 /min eCW1 ([facility]) Respiratory rate 18 /min 18 /min eCW1 ([facility]) Body temperature 96.7 [degF] 96.7 [degF] eCW1 ( [facility]) Systolic blood pressure 125 mm[Hg] 125 mm[Hg] e CW1 ([facility]) Diastolic blood pressure 60 mm[Hg] 60 mm[Hg] eCW1 ([facility]) Body weight 132 [lb_av] 132 [lb_av] eCW1 ([facility]) Body weight kg eCW1 ([facility]) Body height 68 [in_i] 68 [in_i] eCW1 ([facility]) Body mass index (BMI) [Ratio] 20.07 kg/m2 20.07 kg/m2 eCW1 ([facility]) Heart rate 102 /min 102 /min eCW1 ([facility]) Respiratory rate 18 /min 18 /min eCW1 ([facility]) Body temperature 98.3 [degF] 98.3 [degF] eCW1 ( [facility]) Systolic blood pressure 136 mm[Hg] 136 mm[Hg] e CW1 ([facility]) Diastolic blood pressure 64 mm[Hg] 64 mm[Hg] eCW1 ([facility]) Body weight 132 [lb_av] 132 [lb_av] eCW1 ([facility]) Body weight kg eCW1 ([facility]) Body height 68 [in_i] 68 [in_i] eCW1 ([facility]) Body mass index (BMI) [Ratio] 20.07 kg/m2 20.07 kg/m2 eCW1 ([facility]) Heart rate 96 /min 96 /min eCW1 ([facility]) Respiratory rate 18 /min 18 /min eCW1 ([facility]) Body temperature 98.2 [degF] 98.2 [degF] eCW1 ( [facility]) Systolic blood pressure 128 mm[Hg] 128 mm[Hg] e CW1 ([facility]) Diastolic blood pressure 80 mm[Hg] 80 mm[Hg] eCW1 ([facility]) Body weight 132 [lb_av] 132 [lb_av] eCW1 ([facility]) Body weight kg eCW1 ([facility]) Body height 68 [in_i] 68 [in_i] eCW1 ([facility]) Body mass index (BMI) [Ratio] 20.07 kg/m2 20.07 kg/m2 eCW1 ([facility]) Heart rate 98 /min 98 /min eCW1 ([facility]) Respiratory rate 18 /min 18 /min eCW1 ([facility]) Body temperature 98.4 [degF] 98.4 [degF] eCW1 ( [facility]) Systolic blood pressure 134 mm[Hg] 134 mm[Hg] e CW1 ([facility]) Diastolic blood pressure 52 mm[Hg] 52 mm[Hg] eCW1 ([facility]) Body weight 132 [lb_av] 132 [lb_av] eCW1 ([facility]) Body weight kg eCW1 ([facility]) Body height 68 [in_i] 68 [in_i] eCW1 ([facility]) Body mass index (BMI) [Ratio] 20.07 kg/m2 20.07 kg/m2 eCW1 ([facility]) Heart rate 53 /min 53 /min eCW1 ([facility]) Respiratory rate 16 /min 16 /min eCW1 ([facility]) Body temperature 97.8 [degF] 97.8 [degF] eCW1 ( [facility]) Systolic blood pressure 147 mm[Hg] 147 mm[Hg] e CW1 ([facility]) Diastolic blood pressure 65 mm[Hg] 65 mm[Hg] eCW1 ([facility]) Body weight 132 [lb_av] 132 [lb_av] eCW1 ([facility]) Body weight kg eCW1 ([facility]) Body height 68 [in_i] 68 [in_i] eCW1 ([facility]) Body mass index (BMI) [Ratio] 20.07 kg/m2 20.07 kg/m2 eCW1 ([facility]) Heart rate 77 /min 77 /min eCW1 ([facility]) Respiratory rate 16 /min 16 /min eCW1 ([facility]) Body temperature 94.7 [degF] 94.7 [degF] eCW1 ( [facility]) Systolic blood pressure 127 mm[Hg] 127 mm[Hg] e CW1 ([facility]) Diastolic blood pressure 67 mm[Hg] 67 mm[Hg] eCW1 ([facility]) Body height 68 [in_i] 68 [in_i] MEDENT ([facility] 5'8" Body mass index (BMI) [Ratio] 20.1 kg/m2 20.1 k g/m2 MEDENT ([facility] Body weight 132.00 [lb_av] 132.00 [lb_av] MEDEN T ([facility] Systolic blood pressure 130 mm[Hg] 130 mm[Hg] M EDENT ([facility] Diastolic blood pressure 68 mm[Hg] 68 mm[Hg] MEDENT ([facility] Heart rate 78 /min 78 /min MEDENT ([facility] Body weight 132 [lb_av] 132 [lb_av] eCW1 ([facility]) Body weight kg eCW1 ([facility]) Body height 68 [in_i] 68 [in_i] eCW1 ([facility]) Body mass index (BMI) [Ratio] 20.07 kg/m2 20.07 kg/m2 eCW1 ([facility]) Heart rate 91 /min 91 /min eCW1 ([facility]) Respiratory rate 18 /min 18 /min eCW1 ([facility]) Body temperature 96.9 [degF] 96.9 [degF] eCW1 ( [facility]) Systolic blood pressure 128 mm[Hg] 128 mm[Hg] e CW1 ([facility]) Diastolic blood pressure 59 mm[Hg] 59 mm[Hg] eCW1 ([facility]) Body weight 132 [lb_av] 132 [lb_av] eCW1 ([facility]) Body weight kg eCW1 ([facility]) Body height 68 [in_i] 68 [in_i] eCW1 ([facility]) Body mass index (BMI) [Ratio] 20.07 kg/m2 20.07 kg/m2 eCW1 ([facility]) Heart rate 67 /min 67 /min eCW1 ([facility]) Respiratory rate 20 /min 20 /min eCW1 ([facility]) Body temperature 98.2 [degF] 98.2 [degF] eCW1 ( [facility]) Systolic blood pressure 168 mm[Hg] 168 mm[Hg] e CW1 ([facility]) Diastolic blood pressure 72 mm[Hg] 72 mm[Hg] eCW1 ([facility]) Body weight 132 [lb_av] 132 [lb_av] eCW1 ([facility]) Body weight kg eCW1 ([facility]) Body height 68 [in_i] 68 [in_i] eCW1 ([facility]) Body mass index (BMI) [Ratio] 20.07 kg/m2 20.07 kg/m2 W1 ([facility]) Heart rate 81 /min 81 /min eCW1 ([facility]) Respiratory rate 19 /min 19 /min eCW1 ([facility]) Body temperature 95.7 [degF] 95.7 [degF] eCW1 ( [facility]) Systolic blood pressure 122 mm[Hg] 122 mm[Hg] e CW1 ([facility]) Diastolic blood pressure 57 mm[Hg] 57 mm[Hg] eCW1 ([facility]) Body weight 132 [lb_av] 132 [lb_av] eCW1 ([facility]) Body weight kg eCW1 ([facility]) Body height 68 [in_i] 68 [in_i] eCW1 ([facility]) Body mass index (BMI) [Ratio] 20.07 kg/m2 20.07 kg/m2 eCW1 ([facility]) Heart rate 97 /min 97 /min eCW1 ([facility]) Respiratory rate 17 /min 17 /min eCW1 ([facility]) Body temperature 97.3 [degF] 97.3 [degF] eCW1 ( [facility]) Systolic blood pressure 121 mm[Hg] 121 mm[Hg] e CW1 ([facility]) Diastolic blood pressure 69 mm[Hg] 69 mm[Hg] eCW1 ([facility]) Body weight 115 [lb_av] 115 [lb_av] eCW1 ([facility]) Body weight kg eCW1 ([facility]) Body height 68 [in_i] 68 [in_i] eCW1 ([facility]) Body mass index (BMI) [Ratio] 17.48 kg/m2 17.48 kg/m2 eCW1 ([facility]) Heart rate 91 /min 91 /min eCW1 ([facility]) Respiratory rate 18 /min 18 /min eCW1 ([facility]) Body temperature 98.3 [degF] 98.3 [degF] eCW1 ( [facility]) Systolic blood pressure 132 mm[Hg] 132 mm[Hg] e CW1 ([facility]) Diastolic blood pressure 64 mm[Hg] 64 mm[Hg] eCW1 ([facility]) Body weight 115 [lb_av] 115 [lb_av] eCW1 ([facility]) Body weight kg eCW1 ([facility]) Body height 68 [in_i] 68 [in_i] eCW1 ([facility]) Body mass index (BMI) [Ratio] 17.48 kg/m2 17.48 kg/m2 eCW1 ([facility]) Heart rate 88 /min 88 /min eCW1 ([facility]) Respiratory rate 18 /min 18 /min eCW1 ([facility]) Body temperature 98.2 [degF] 98.2 [degF] eCW1 ( [facility]) Systolic blood pressure 142 mm[Hg] 142 mm[Hg] e CW1 ([facility]) Diastolic blood pressure 77 mm[Hg] 77 mm[Hg] eCW1 ([facility]) Body weight 115 [lb_av] 115 [lb_av] eCW1 ([facility]) Body weight kg eCW1 ([facility]) Body height 68 [in_i] 68 [in_i] eCW1 ([facility]) Body mass index (BMI) [Ratio] 17.48 kg/m2 17.48 kg/m2 eCW1 ([facility]) Heart rate 95 /min 95 /min eCW1 ([facility]) Respiratory rate 18 /min 18 /min eCW1 ([facility]) Body temperature 98.2 [degF] 98.2 [degF] eCW1 ( [facility]) Systolic blood pressure 134 mm[Hg] 134 mm[Hg] e CW1 ([facility]) Diastolic blood pressure 65 mm[Hg] 65 mm[Hg] eCW1 ([facility]) Body weight 115 [lb_av] 115 [lb_av] eCW1 ([facility]) Body weight kg eCW1 ([facility]) Body height 68 [in_i] 68 [in_i] eCW1 ([facility]) Body mass index (BMI) [Ratio] 17.48 kg/m2 17.48 kg/m2 eCW1 ([facility]) Heart rate 67 /min 67 /min eCW1 ([facility]) Respiratory rate 18 /min 18 /min eCW1 ([facility]) Body temperature 95.5 [degF] 95.5 [degF] eCW1 ( [facility]) Systolic blood pressure 126 mm[Hg] 126 mm[Hg] e CW1 ([facility]) Diastolic blood pressure 58 mm[Hg] 58 mm[Hg] eCW1 ([facility]) Body weight 115 [lb_av] 115 [lb_av] eCW1 ([facility]) Body height 68 [in_i] 68 [in_i] eCW1 ([facility]) Body mass index (BMI) [Ratio] 17.48 kg/m2 17.48 kg/m2 eCW1 ([facility]) Heart rate 95 /min 95 /min eCW1 ([facility]) Respiratory rate 18 /min 18 /min eCW1 ([facility]) Body temperature 98 [degF] 98 [degF] eCW1 ([facility]) Systolic blood pressure 127 mm[Hg] 127 mm[Hg] e CW1 ([facility]) Diastolic blood pressure 61 mm[Hg] 61 mm[Hg] eCW1 ([facility]) Body weight 115 [lb_av] 115 [lb_av] eCW1 ([facility]) Body weight kg eCW1 ([facility]) Body height 68 [in_i] 68 [in_i] eCW1 ([facility]) Body mass index (BMI) [Ratio] 17.48 kg/m2 17.48 kg/m2 eCW1 ([facility]) Heart rate 89 /min 89 /min eCW1 ([facility]) Respiratory rate 18 /min 18 /min eCW1 ([facility]) Body temperature 97 [degF] 97 [degF] eCW1 ([facility]) Systolic blood pressure 132 mm[Hg] 132 mm[Hg] e CW1 ([facility]) Diastolic blood pressure 61 mm[Hg] 61 mm[Hg] eCW1 ([facility]) Body weight 115 [lb_av] 115 [lb_av] eCW1 ([facility]) Body weight kg eCW1 ([facility]) Body height 68 [in_i] 68 [in_i] eCW1 ([facility]) Body mass index (BMI) [Ratio] 17.48 kg/m2 17.48 kg/m2 eCW1 ([facility]) Heart rate 102 /min 102 /min eCW1 ([facility]) Respiratory rate 19 /min 19 /min eCW1 ([facility]) Body temperature 96.2 [degF] 96.2 [degF] eCW1 ( [facility]) Systolic blood pressure 123 mm[Hg] 123 mm[Hg] e CW1 ([facility]) Diastolic blood pressure 74 mm[Hg] 74 mm[Hg] eCW1 ([facility]) Body temperature 97.3 [degF] 97.3 [degF] MEDENT ([facility]) Body weight 115 [lb_av] 115 [lb_av] eCW1 ([facility]) Body height 68 [in_i] 68 [in_i] eCW1 ([facility]) Body mass index (BMI) [Ratio] 17.48 kg/m2 17.48 kg/m2 eCW1 ([facility]) Heart rate 74 /min 74 /min eCW1 ([facility]) Respiratory rate 18 /min 18 /min eCW1 ([facility]) Body temperature 96.6 [degF] 96.6 [degF] eCW1 ( [facility]) Systolic blood pressure 134 mm[Hg] 134 mm[Hg] e CW1 ([facility]) Diastolic blood pressure 60 mm[Hg] 60 mm[Hg] eCW1 ([facility]) Respiratory rate 18 /min 18 /min eCW1 ([facility]) Body weight 115 [lb_av] 115 [lb_av] eCW1 ([facility]) Body weight kg eCW1 ([facility]) Body height 68 [in_i] 68 [in_i] eCW1 ([facility]) Body mass index (BMI) [Ratio] 17.48 kg/m2 17.48 kg/m2 eCW1 ([facility]) Heart rate 80 /min 80 /min eCW1 ([facility]) Body temperature 96.9 [degF] 96.9 [degF] eCW1 ( [facility]) Systolic blood pressure 117 mm[Hg] 117 mm[Hg] e CW1 ([facility]) Diastolic blood pressure 57 mm[Hg] 57 mm[Hg] eCW1 ([facility]) Body temperature 98.5 [degF] 98.5 [degF] eCW1 ( [facility]) Systolic blood pressure 117 mm[Hg] 117 mm[Hg] e CW1 ([facility]) Body mass index (BMI) [Ratio] 17.48 kg/m2 17.48 kg/m2 eCW1 ([facility]) Heart rate 98 /min 98 /min eCW1 ([facility]) Respiratory rate 18 /min 18 /min eCW1 ([facility]) Diastolic blood pressure 60 mm[Hg] 60 mm[Hg] eCW1 ([facility]) Body weight 115 [lb_av] 115 [lb_av] eCW1 ([facility]) Body weight kg eCW1 ([facility]) Body height 68 [in_i] 68 [in_i] eCW1 ([facility]) Body temperature 96.9 [degF] 96.9 [degF] MEDENT ([facility]) Body weight 115 [lb_av] 115 [lb_av] eCW1 ([facility]) Body mass index (BMI) [Ratio] 17.48 kg/m2 17.48 kg/m2 eCW1 ([facility]) Body weight kg eCW1 ([facility]) Respiratory rate 18 /min 18 /min eCW1 ([facility]) Body temperature 97.7 [degF] 97.7 [degF] eCW1 ( [facility]) Diastolic blood pressure 74 mm[Hg] 74 mm[Hg] eCW1 ([facility]) Body height 68 [in_i] 68 [in_i] eCW1 ([facility]) Heart rate 65 /min 65 /min eCW1 ([facility]) Systolic blood pressure 109 mm[Hg] 109 mm[Hg] e CW1 ([facility]) Body weight 115 [lb_av] 115 [lb_av] eCW1 ([facility]) Body height 68 [in_i] 68 [in_i] eCW1 ([facility]) Body mass index (BMI) [Ratio] 17.48 kg/m2 17.48 kg/m2 eCW1 ([facility]) Body weight kg eCW1 ([facility]) Respiratory rate 17 /min 17 /min eCW1 ([facility]) Body temperature 98.8 [degF] 98.8 [degF] eCW1 ( [facility]) Body weight 115 [lb_av] 115 [lb_av] eCW1 ([facility]) Body weight kg eCW1 ([facility]) Body height 68 [in_i] 68 [in_i] eCW1 ([facility]) Body mass index (BMI) [Ratio] 17.48 kg/m2 17.48 kg/m2 eCW1 ([facility]) Heart rate 95 /min 95 /min eCW1 ([facility]) Respiratory rate 20 /min 20 /min eCW1 ([facility]) Body temperature 95.8 [degF] 95.8 [degF] eCW1 ( [facility]) Systolic blood pressure 136 mm[Hg] 136 mm[Hg] e CW1 ([facility]) Diastolic blood pressure 61 mm[Hg] 61 mm[Hg] eCW1 ([facility]) Body weight 115 [lb_av] 115 [lb_av] eCW1 ([facility]) Body weight kg eCW1 ([facility]) Body height 68 [in_i] 68 [in_i] eCW1 ([facility]) Body mass index (BMI) [Ratio] 17.48 kg/m2 17.48 kg/m2 eCW1 ([facility]) Heart rate 99 /min 99 /min eCW1 ([facility]) Respiratory rate 19 /min 19 /min eCW1 ([facility]) Body temperature 97.9 [degF] 97.9 [degF] eCW1 ( [facility]) Systolic blood pressure 137 mm[Hg] 137 mm[Hg] e CW1 ([facility]) Diastolic blood pressure 73 mm[Hg] 73 mm[Hg] eCW1 ([facility]) Body weight 115 [lb_av] 115 [lb_av] eCW1 ([facility]) Body weight kg eCW1 ([facility]) Body height 68 [in_i] 68 [in_i] eCW1 ([facility]) Body mass index (BMI) [Ratio] 17.48 kg/m2 17.48 kg/m2 eCW1 ([facility]) Heart rate 98 /min 98 /min eCW1 ([facility]) Respiratory rate 16 /min 16 /min eCW1 ([facility]) Body temperature 95.5 [degF] 95.5 [degF] eCW1 ( [facility]) Systolic blood pressure 119 mm[Hg] 119 mm[Hg] e CW1 ([facility]) Diastolic blood pressure 59 mm[Hg] 59 mm[Hg] eCW1 ([facility]) Body weight 115 [lb_av] 115 [lb_av] eCW1 ([facility]) Body weight kg eCW1 ([facility]) Body height 68 [in_i] 68 [in_i] eCW1 ([facility]) Body mass index (BMI) [Ratio] 17.48 kg/m2 17.48 kg/m2 eCW1 ([facility]) Heart rate 95 /min 95 /min eCW1 ([facility]) Respiratory rate 18 /min 18 /min eCW1 ([facility]) Body temperature 97.9 [degF] 97.9 [degF] eCW1 ( [facility]) Systolic blood pressure 128 mm[Hg] 128 mm[Hg] e CW1 ([facility]) Diastolic blood pressure 61 mm[Hg] 61 mm[Hg] eCW1 ([facility]) Systolic blood pressure 106 mm[Hg] 106 mm[Hg] e CW1 ([facility]) Body weight 115 [lb_av] 115 [lb_av] eCW1 ([facility]) Body height 68 [in_i] 68 [in_i] eCW1 ([facility]) Body mass index (BMI) [Ratio] 17.48 kg/m2 17.48 kg/m2 eCW1 ([facility]) Heart rate 103 /min 103 /min eCW1 ([facility]) Respiratory rate 20 /min 20 /min eCW1 ([facility]) Body temperature 97 [degF] 97 [degF] eCW1 ([facility]) Diastolic blood pressure 63 mm[Hg] 63 mm[Hg] eCW1 ([facility]) Body weight 115 [lb_av] 115 [lb_av] eCW1 ([facility]) Body weight kg eCW1 ([facility]) Body height 68 [in_i] 68 [in_i] eCW1 ([facility]) Body mass index (BMI) [Ratio] 17.48 kg/m2 17.48 kg/m2 eCW1 ([facility]) Heart rate 93 /min 93 /min eCW1 ([facility]) Respiratory rate 16 /min 16 /min eCW1 ([facility]) Body temperature 97.7 [degF] 97.7 [degF] eCW1 ( [facility]) Systolic blood pressure 134 mm[Hg] 134 mm[Hg] e CW1 ([facility]) Diastolic blood pressure 63 mm[Hg] 63 mm[Hg] eCW1 ([facility]) Patient Treatment Plan of Care Planned Activity Planned Date Details Description Data Source (s) NITROFURANTOIN, MACROCRYSTALS 25 MG / Ni trofurantoin, Monohydrate 75 MG Oral Capsule ROSEMARY ([facility]) Mupirocin 0.02 MG/MG Topical Ointment ROSEMARY ([facility]) Ibuprofen 600 MG Oral Tablet RO[facility]ARY ([facility]) Furosemide 20 MG Oral Tablet RO[facility] ([facility]) Fluconazole 150 MG Oral Tablet RO[facility]ARY ([facility]) Cephalexin 500 MG Oral Capsule ROSEMARY ([facility]) NITROFURANTOIN, MACROCRYSTALS 25 MG / Ni trofurantoin, Monohydrate 75 MG Oral Capsule RO[facility]ARY ([facility]) Mupirocin 0.02 MG/MG Topical Ointment ROSEMARY ([facility]) Ibuprofen 600 MG Oral Tablet [facility] ([facility]) Furosemide 20 MG Oral Tablet ROSEM[facility] ([facility]) Fluconazole 150 MG Oral Tablet [facility] ([facility]) Cephalexin 500 MG Oral Capsule RO[facility]ARY ([facility]) NITROFURANTOIN, MACROCRYSTALS 25 MG / Ni trofurantoin, Monohydrate 75 MG Oral Capsule [facility] ([facility]) Mupirocin 0.02 MG/MG Topical Ointment ROSEMARY ([facility]) Ibuprofen 600 MG Oral Tablet RO[facility] ([facility]) Furosemide 20 MG Oral Tablet RO[facility] ([facility]) Fluconazole 150 MG Oral Tablet [facility] ([facility]) Cephalexin 500 MG Oral Capsule RO[facility] ([facility]) NITROFURANTOIN, MACROCRYSTALS 25 MG / Ni trofurantoin, Monohydrate 75 MG Oral Capsule [facility] ([facility]) Mupirocin 0.02 MG/MG Topical Ointment ROSEMARY ([facility]) Ibuprofen 600 MG Oral Tablet [facility] ([facility]) Furosemide 20 MG Oral Tablet [facility] ([facility]) Fluconazole 150 MG Oral Tablet [facility] ([facility]) Cephalexin 500 MG Oral Capsule [facility] ([facility]) NITROFURANTOIN, MACROCRYSTALS 25 MG / Ni trofurantoin, Monohydrate 75 MG Oral Capsule [facility] ([facility]) Mupirocin 0.02 MG/MG Topical Ointment ROSEMARY ([facility]) Ibuprofen 600 MG Oral Tablet [facility] ([facility]) Furosemide 20 MG Oral Tablet RO[facility] ([facility]) Fluconazole 150 MG Oral Tablet [facility] ([facility]) Cephalexin 500 MG Oral Capsule [facility] ([facility]) NITROFURANTOIN, MACROCRYSTALS 25 MG / Ni trofurantoin, Monohydrate 75 MG Oral Capsule [facility] ([facility]) Mupirocin 0.02 MG/MG Topical Ointment RO[facility]ARY ([facility]) Ibuprofen 600 MG Oral Tablet [facility] ([facility]) Furosemide 20 MG Oral Tablet [facility] ([facility]) Fluconazole 150 MG Oral Tablet [facility] ([facility]) Cephalexin 500 MG Oral Capsule RO[facility] ([facility])
[2021-08-08] MEDS ORDERED: POTASSIUM CHLORIDE 10MEQ SR TABLET PO ONE ×2 (06:20→15:50)
[2021-08-08 06:21] LABS: RSV AMPLIFICATION NEGATIVE (NEGATIVE)
--- NOTE | 2021-08-08 06:28 | HPEPDOC ---
General Date of Admission 08/08/21 Date of Service: Aug 08, 2021 Chief Complaint The patient is a 76-year-old female admitted with a reason for visit of Fever, Leg Pain. Source: Patient History of Present Illness Tiffany Pandey is 76yo F with significant hx of afib, DM, lower back pain, anemia, anxiety, cirrhosis, PVD and chronic LLE leg wound who arrives with c/o increased LLE pain/ redness x 3 days. Pt reports She has been at baseline until 3 days ago when she started noticed increased discomfort of the LLE, redness and swelling. She sees Dr. Burgos with Wound clinic and has public health nurse come to her house and change it twice weekly. Reportedly, there was an interval change in the wound appearance with last dressing change and she was suppose to hear back on going to office sooner than next appointment, but because of the worsening pain and developing a fever last night of 102F- she came to ED. Pt afebrile upon arrival but had received tylenol in route with EMS. Pt somewhat poor historian and limitation to HPI as she reports LLE pain and is asking for pain medication. She also reports she is exhausted and does not feel well and "can't really remember". Pt denies URI symptoms, cough, SOB, chest pain or n/v/d. She enoc endorse of pyuria with ROS. Pt afebrile during exam, mildly tachycardic, not tachypneic. Wbc 10.2, no lactic acidosis. CRP elevated.Xray completed LLE and nonacute, but + soft tissue swelling. CXR nonacute. UA pend. BC pend. PCR pend. Pt will be admitted for further evaluation and management of presenting concerns. Home Medications Scheduled Acetaminophen (Acetaminophen) 325 Mg Tab, 650 MG PO BID, (Reported) Apixaban (Eliquis) 5 Mg Tablet, 5 MG PO BID, (Reported) Biotin (Biotin) 2,500 Mcg Capsule, 2,500 MCG PO DAILY, (Reported) Buspirone HCl (Buspirone HCl) 5 Mg Tablet, 5 MG PO BID, (Reported) Cholecalciferol (Vitamin D3) (Vitamin D3) 125 Mcg Capsule, 125 MCG PO DAILY, (Reported) Docusate Sodium (Stool Softener) 100 Mg Capsule, 100 MG PO DAILY, (Reported) Ferrous Sulfate (Ferrous Sulfate) 325 Mg Tablet.dr, 325 MG PO DAILY, (Reported) Magnesium Oxide (Magnesium) 400 Mg Capsule, 400 MG PO DAILY, (Reported) Metformin HCl (Metformin HCl) 500 Mg Tab, 500 MG PO BID, (Reported) Multivitamins (Thera M Plus Tablet) 1 Each Tablet, 1 TAB PO DAILY, (Reported) Omeprazole (Omeprazole) 40 Mg Cap, 40 MG PO DAILY, (Reported) Potassium Chloride (Potassium Chloride) 8 Meq Tablet.er, 8 MEQ PO DAILY, (Reported) Vitamin B Complex (Vitamin B Complex) 1 Each Tablet, 1 TAB PO DAILY, (Reported) Allergies Coded Allergies: Penicillins (Verified Allergy, Unknown, RASH, 03/20/21) bacitracin (Verified Allergy, Unknown, contact allergic dermatitis, 03/20/21) ciprofloxacin (Verified Allergy, Unknown, rash, 03/20/21) clindamycin (Verified Allergy, Unknown, rash, 03/20/21) neomycin (Verified Allergy, Unknown, contact allergic dermatitis, 03/20/21) polymyxin B (Verified Allergy, Unknown, contact allergic dermatitis, 03/20/21) Past Medical History Medical History afib, hiatal hernia, DM, cirrhosis, chronic LLE ulcers with PVD, GERD Surgical History gallbladder removal 1987, skin cancer removal, R hip fracture and rods, thrombophlebitis procedure LLE Family History Significant Family History: Cancer, COPD, Diabetes mother of old age, uncle: DM Social History * Smoker: current smoker, cigarettes (occassional, monthyl cigarette) Alcohol: sober (she describes hx of sher use ) Drugs: denies Recent Travel/Sick Contacts: Denies: Recent travel, Recent sick contacts Psychosocial History: Anxiety Pt reports she lives alone and walks with walker at baseline, receives assistance from neighbor A-FIB/DTT A-FIB History Current/History of A-Fib/PAF?: Yes Current PO Anticoag Therapy: Yes Review of Systems Constitutional: Reports: Fever; Denies: Chills, Night Sweats Eyes: Denies: Pain, Vision change ENT: Denies: Head Aches, Ear Pain, Dysphagia Skin: Reports: Rash; Denies: Lesions, Breakdown Pulmonary: Denies: Dyspnea, Cough Cardiovascular: Denies: Chest Pain, Palpitations, Orthopnea, Paroxysmal Noc. Dyspnea, Lt Headedness Gastrointestinal: Reports: Other Symptoms (poor appetite); Denies: Nausea, Vomiting, Abdominal Pain, Diarrhea Genitourinary: Denies: Dysuria, Frequency, Incontinence, Retention Hematologic: Denies: Bruising, Bleeding Excessively Musculoskeletal: Reports: Leg Pain; Denies: Neck Pain, Back Pain, Joint Pain, Muscle Pain, Spasms Neurological: Denies: Weakness, Numbness, Change in speech, Confusion Psych: Reports: Mood Normal; Denies: Depression, Memory Issues Physical Examination General Exam: Positive: Alert, Cooperative, No Acute Distress Eye Exam: Positive: PERRLA, Conjunctiva & lids normal, EOMI; Negative: Sclera icteric ENT Exam: Positive: Atraumatic, Mucous membr. moist/pink, Pharynx Normal Neck Exam: Positive: Supple; Negative: JVD, thyromegaly Chest Exam: Positive: Normal air movement Heart Exam: Positive: Tachycardic, Irregular Rhythm, Normal S1, Normal S2; Negative: Murmurs, Rubs Telemetry: Positive: Sinus, Atrial fibrillation Abdomen Exam: Positive: Normal bowel sounds, Soft; Negative: Tenderness, Hepatospenomegaly Extremity Exam: Positive: Normal pulses; Negative: Clubbing, Cyanosis, Edema Skin Exam: Positive: Other skin issue (erythema LLE, warmth, tenderness, wound with brown drainage); Negative: Nl turgor and temperature, Breakdown, Lesion Neuro Exam: Positive: Normal Speech, Cranial Nerves 3-12 NL, Reflexes 2+; Negative: Normal Gait Psych Exam: Positive: Mental status NL, Mood NL, Oriented x 3 Vital Signs Vital Signs Date Time Temp Pulse Resp B/P (MAP) Pulse Ox O2 Delivery O2 Flow Rate FiO2 08/07/21 21:50 98.8 98 20 107/60 (76) 97 Room Air Laboratory Data Labs 24H Laboratory Tests 2 08/07/21 23:31: Immature Granulocyte % (Auto) 0.6, Neutrophils (%) (Auto) 85.5H, Lymphocytes (%) (Auto) 9.6L, Monocytes (%) (Auto) 4.0, Eosinophils (%) (Auto) 0.0, Basophils (%) (Auto) 0.3, Neutrophils # (Auto) 8.7H, Lymphocytes # (Auto) 1.0L, Monocytes # (Auto) 0.4, Eosinophils # (Auto) 0.0, Basophils # (Auto) 0.0, Nucleated Red Blood Cells % (auto) 0.0, Immature Platelet Fraction 3.1, Erythrocyte Sedimentation Rate 81H, Anion Gap 7L, Glomerular Filtration Rate > 60.0, Lactic Acid Level 1.2, Calcium Level 8.1L, Magnesium Level 1.0L, Total Bilirubin 0.8, Aspartate Amino Transf (AST/SGOT) 20, Alanine Aminotransferase (ALT/SGPT) 18, Alkaline Phosphatase 52, C-Reactive Protein, Quantitative 12.20H, Total Protein 7.2, Albumin 2.7L, Albumin/Globulin Ratio 0.6L, Thyroid Stimulating Hormone (TSH) 1.140 08/07/21 23:52: POC Troponin I (Misc) 0.02 08/08/21 05:25: Urine Color ISAK, Urine Appearance HAZY, Urine pH 6.0, Urine Specific [place] 1.028, Urine Protein 2+H, Urine Glucose (UA) 2+H, Urine Ketones NEGATIVE, Urine Blood NEGATIVE, Urine Nitrite NEGATIVE, Urine Bilirubin NEGATIVE, Urine Urobilinogen 2.0H, Urine Leukocyte Esterase 1+H, Urine WBC (Auto) 32H, Urine RBC (Auto) 5H, Urine Hyaline Casts (Auto) 0, Urine Bacteria (Auto) NEGATIVE, Urine Squamous Epithelial Cells 1, Urine Transitional Epithelial Cells 1, Urine Mucus (Auto) SMALL, Urine Sperm (Auto) CBC/BMP Laboratory Tests 08/07/21 23:31 Microbiology Microbiology 08/08/21 Urine Culture, Received Pending 08/07/21 Blood Culture, Received Pending 08/07/21 Blood Culture, Received Pending Assessment/Plan 1.LLE Cellulitis in pt with Chronic LLE Venous stasis Ulcer: -Monitor for worsening s/s infection -Elevate extremity -S/s care: analgesics -Empiric coverage, f/u BC and wound culture -WOCN consult -Consider Dr. Burgos Consult for debridement 2.Febrile episode: Likely due to above. However PCR pend during exam. Pt without URI complaints and thus lower suspicion, but F/u PCR. 3. Afib: Labile HR during exam, pt was in moderate pain level and she appears dry; likely labile tachycardia would improve with symptom management and hydration. -Monitor tele, if HR sustaining greater than 110 for rate controlling agent. -Check electrolytes and replete accordingly -Continue OAC 4.Dysuria: Check UA, consider empiric coverage 5.Anemia: Hgb 9.4, stable. -Monitor for any overt bleeding -Continue Iron supplementation. -Am labs 6.DM : -Check a1c -held metformin given poor PO -ACHS accuchecks and SSI -AM labs 7. Tobacco Use: pt reports occasional cigarette. -Encourage cessation. 8.Deconditioning frail elder: PT eval for therapeutic purposes pend clinical course with above. DVT Px: Eliquis CODE Status: Full Dispo planning: Home pend clinical improvement Plan / VTE VTE Prophylaxis Ordered?: Yes NEHEMIAH BELLAMY NP Aug 08, 2021 06:27
[2021-08-08] MEDS ORDERED: VANCOMYCIN HCL 1,000 MG, VIAL MATE ADAPTER 1 EACH in NS 250 ML IV ONE (07:00)
[2021-08-08 08:25] LABS: BASO % 0.2 % (0.0-1.0); EOS % 0.4 % (0.0-3.0); HEMATOCRIT 28.9 % (36.0-47.0); HEMOGLOBIN 9.2 g/dl (12.0-15.5); LYMPH # 0.9 10^3/uL (1.5-5.0); LYMPH % 11.6 % (24.0-44.0); MEAN CORPUSCULAR HEMOGLOBIN 27.5 pg (27.0-33.0); MEAN CORPUSCULAR HGB CONC 31.8 g/dl (32.0-36.5); MEAN CORPUSCULAR VOLUME 86.3 fl (80.0-96.0); MONO # 0.4 10^3/uL (0.0-0.8); MONO % 5.4 % (2.0-8.0); NEUTROPHILS # 6.6 10^3/uL (1.5-8.5); NEUTROPHILS % 81.9 % (36.0-66.0); RED BLOOD COUNT 3.35 10^6/uL (4.00-5.40)
[2021-08-08 08:29] LABS: PLATELET COUNT, AUTOMATED 89 10^3/uL (150-450)
[2021-08-08] MEDS: LACTOBACILLUS ACIDOPHILUS CAP (BACID) PO SCH (08:35)
[2021-08-08] MEDS: DOCUSATE SODIUM 100MG CAPSULE PO SCH (08:35)
[2021-08-08] MEDS: busPIRone 5 MG TAB PO SCH ×2 (08:35→20:11)
[2021-08-08] MEDS: OMEPRAZOLE 20 MG CAP PO SCH (08:35)
[2021-08-08] MEDS: MAGNESIUM OXIDE 400MG TAB (MAG-OX) PO SCH (08:35)
[2021-08-08] MEDS: MULTIVITAMINS/MINERALS THERAP 1 TAB PO SCH (08:35)
[2021-08-08] MEDS: HumaLOG INSULIN (NovoLOG) PER UNIT SC SCH ×4 (08:35→20:13)
[2021-08-08] MEDS: FERROUS SULFATE 325MG TAB PO SCH (08:36)
[2021-08-08 08:42] LABS: BLOOD UREA NITROGEN 16 MG/DL (7-18); CALCIUM LEVEL 8.4 MG/DL (8.8-10.2); CARBON DIOXIDE LEVEL 24 MEQ/L (21-32); CHLORIDE LEVEL 108 MEQ/L (98-107); CREATININE FOR GFR 0.77 MG/DL (0.55-1.30); GLOMERULAR FILTRATION RATE > 60.0 (>39); GLUCOSE, FASTING 136 MG/DL (70-100); MAGNESIUM LEVEL 1.2 MG/DL (1.8-2.4); POTASSIUM SERUM 3.2 MEQ/L (3.5-5.1); SODIUM LEVEL 141 MEQ/L (136-145)
[2021-08-08] MEDS: cefTRIAXone SOD 1 GM in D5W MINI-BAG PLUS 50 ML IV SCH (08:42)
[2021-08-08] MEDS: NS 1,000 ML IV SCH (08:42)
[2021-08-08] MEDS: VANCOMYCIN HCL 750 MG, VIAL MATE ADAPTER 1 EACH in NS 250 ML IV SCH (13:36)
[2021-08-08] MEDS: APIXABAN 5 MG TAB (ELIQUIS) PO SCH ×2 (13:39→20:11)
[2021-08-08 15:15] VITALS: BP 117/59
--- NOTE | 2021-08-08 15:49 | IPNPDOC ---
Text Note Date of Service The patient was seen on 08/08/21. NOTE Physical Examination General: Alert, Cooperative, No Acute Distress Eyes: PERRLA, Conjunctiva & lids normal, EOM, anicteric ENT: Atraumatic, Mucous membr. moist/pink, Pharynx Normal Neck: Supple, no JVD, no thyromegaly Chest: Normal air movement, CTAB, no rales, rhonchi or wheezing, breathing comfortably on room air Heart:Irregularly irregular, Normal S1, Normal S2, no m/r/g Abdomen: Normal bowel sounds, Soft, NTND Extremities: thready but palpable DP pulses, erythematous LLE, warmth, has a wound with brown drainage Neuro: Normal Speech, Cranial Nerves 3-12 NL, Reflexes 2+, Normal Gait Psych: Alert and Oriented x 3 Laboratory Data: Pending AM labs Admission labs WBC 10.2 Hgb 9.4 Platelets 86 na 139 K 3.1 BUN 19 Cr 0.84 Microbiology 08/08/21 Urine Culture, Received Pending 08/07/21 Blood Culture, Received Pending 08/07/21 Blood Culture, Received Pending Assessment: LLE Cellulitis in pt with Chronic LLE Venous stasis Ulcer: -Elevate extremity above level of heart when supine -Continue empiric coverage with vanc and ceftriaxone, check MRSA PCR -f/u BC and wound culture -Consult Dr. Burgos for wound management Chronic Afib: -tele -Check electrolytes and replete daily -Continue home NoAC UTI: w/ dysuria and +UA -continue empiric ceftriaxone -f/u UCx Chronic anemia: Hgb 9.4, stable from prior. -Continue Iron supplementation. DM : -held metformin given poor PO -ACHS accuchecks and SSI -consistent carb diet Tobacco Use: -Encouraged cessation. Deconditioning -PT/OT DVT Px: Eliquis CODE Status: Full Dispo planning: Home pend clinical improvement VS,Yissel, I+O VS, Yessie, I+O Laboratory Tests 08/07/21 23:31 Vital Signs Date Time Temp Pulse Resp B/P (MAP) Pulse Ox O2 Delivery O2 Flow Rate FiO2 08/07/21 21:50 98.8 98 20 107/60 (76) 97 Room Air MARCELLA RICHARDSON MD Aug 08, 2021 08:31
[2021-08-08] MEDS ORDERED: MAG SULF 1GM/100ML (MAG RUN) 1 GM in IV 1 EA IV ONE (15:50)
[2021-08-08] MEDS: ACETAMINOPHEN TAB 650MG DOSE (2X325MG) PO PRN (20:12)
[2021-08-08 22:00] VITALS: BP 113/45
[2021-08-09] MEDS: VANCOMYCIN HCL 750 MG, VIAL MATE ADAPTER 1 EACH in NS 250 ML IV SCH (00:16)
[2021-08-09] MEDS: NS 1,000 ML IV SCH (00:17)
[2021-08-09 06:00] VITALS: BP 131/65
[2021-08-09] MEDS: HumaLOG INSULIN (NovoLOG) PER UNIT SC SCH ×5 (07:30→20:08)
[2021-08-09] MEDS: cefTRIAXone SOD 1 GM in D5W MINI-BAG PLUS 50 ML IV SCH (09:42)
[2021-08-09] MEDS: LACTOBACILLUS ACIDOPHILUS CAP (BACID) PO SCH (09:44)
[2021-08-09] MEDS: FERROUS SULFATE 325MG TAB PO SCH (09:44)
[2021-08-09] MEDS: busPIRone 5 MG TAB PO SCH ×2 (09:44→20:12)
[2021-08-09] MEDS: APIXABAN 5 MG TAB (ELIQUIS) PO SCH ×2 (09:44→20:12)
[2021-08-09] MEDS: OMEPRAZOLE 20 MG CAP PO SCH ×2 (09:44→20:12)
[2021-08-09] MEDS: MULTIVITAMINS/MINERALS THERAP 1 TAB PO SCH (09:44)
[2021-08-09] MEDS: DOCUSATE SODIUM 100MG CAPSULE PO SCH (09:45)
[2021-08-09] MEDS: MAGNESIUM OXIDE 400MG TAB (MAG-OX) PO SCH (09:45)
[2021-08-09 09:59] LABS: BLOOD UREA NITROGEN 13 MG/DL (7-18); CALCIUM LEVEL 8.3 MG/DL (8.8-10.2); CARBON DIOXIDE LEVEL 20 MEQ/L (21-32); CHLORIDE LEVEL 110 MEQ/L (98-107); CREATININE FOR GFR 0.73 MG/DL (0.55-1.30); GLOMERULAR FILTRATION RATE > 60.0 (>39); GLUCOSE, FASTING 154 MG/DL (70-100); MAGNESIUM LEVEL 1.7 MG/DL (1.8-2.4); POTASSIUM SERUM 3.8 MEQ/L (3.5-5.1); SODIUM LEVEL 139 MEQ/L (136-145)
[2021-08-09 10:53] LABS: HEMATOCRIT 31.1 % (36.0-47.0); MEAN CORPUSCULAR HEMOGLOBIN 27.7 pg (27.0-33.0); MEAN CORPUSCULAR HGB CONC 32.2 g/dl (32.0-36.5); MEAN CORPUSCULAR VOLUME 86.1 fl (80.0-96.0); PLATELET COUNT, AUTOMATED 100 10^3/uL (150-450); RED BLOOD COUNT 3.61 10^6/uL (4.00-5.40); WHITE BLOOD COUNT 5.5 10^3/uL (4.0-10.0)
--- NOTE | 2021-08-09 11:05 | ECGEPIP ---
[facility] - ED Test Date: 2021-08-07 Pat Name: SAMSON SINGH Department: Room: [place] [address] Gender: Female [employer]illing [employer] Specialist: CHIVO : 1945 Requested By: NINA Richardson Order Number: [id number] Reading MD: Luis Vo Measurements Intervals Turner Rate: 109 P: WI: QRS: 63 QRSD: 82 T: -68 QT: 300 QTc: 404 Interpretive Statements Atrial fibrillation with rapid ventricular response with premature ventricular or aberrantly conducted complexes Cannot rule out Anterior infarct , age undetermined Nonspecific ST-T wave abnormalities Ectopy new when compared to tracing done 03-20-21 Electronically Signed on 08-09-2021 11:04:46 EST by Luis Vo
[2021-08-09] MEDS: METOPROLOL TART 25 MG TABLET PO SCH ×2 (11:37→18:05)
[2021-08-09 11:38] LABS: ERYTHROCYTE SEDIMENTATION RATE 72 mm/hr (0-30)
[2021-08-09 12:50] VITALS: BP 134/80
[2021-08-09] MEDS ORDERED: VANCOMYCIN HCL 500 MG in D5W MINI-BAG PLUS 100 ML IV SCH (13:00)
--- NOTE | 2021-08-09 13:42 | IPNPDOC ---
Text Note Date of Service The patient was seen on 08/09/21. NOTE SUBJECTIVE: -No acute complaints -Complaining that she feels cold and asking for more blankets, then later this morning was febrile Physical Examination General: Alert, Cooperative, No Acute Distress Eyes: PERRLA, Conjunctiva & lids normal, EOM, anicteric ENT: Atraumatic, Mucous membr. moist/pink, Pharynx Normal Neck: Supple, no JVD, no thyromegaly Chest: Normal air movement, CTAB, no rales, rhonchi or wheezing, breathing comfortably on room air Heart:Irregularly irregular, Normal S1, Normal S2, no m/r/g Abdomen: Normal bowel sounds, Soft, NTND Extremities: thready but palpable DP pulses, erythematous LLE, warmth, has a wound with brown drainage. Bilaterally she has chronic venous stasis changes with patchy hemosiderosis Neuro: Normal Speech, Cranial Nerves 3-12 NL, Reflexes 2+, Normal Gait Psych: Alert and Oriented x 3 Laboratory Data: Pending AM labs Microbiology 08/08/21 Urine Culture, Received Pending 08/07/21 Blood Culture, Received Pending 08/07/21 Blood Culture, Received Pending Assessment/Plan: LLE Cellulitis in pt with Chronic LLE Venous stasis Ulcer: -Elevate extremity above level of heart when supine -Continue empiric coverage with vanc and ceftriaxone,f/u MRSA PCR -f/u BC and wound culture -Consult placed for Dr. Burgos for wound management Chronic Afib: -tele -Check electrolytes and replete daily -Continue home NoAC UTI: w/ dysuria and +UA -continue empiric ceftriaxone -f/u UCx Chronic anemia: Hgb 9.4, stable from prior. -Continue Iron supplementation. DM : -held metformin given poor PO -ACHS accuchecks and SSI -consistent carb diet Tobacco Use: -Encouraged cessation. Deconditioning -PT/OT DVT Px: Eliquis CODE Status: Full Dispo planning: Home pend clinical improvement VS,Fishbone, I+O VS, Fishbone, I+O Vital Signs Date Time Temp Pulse Resp B/P (MAP) Pulse Ox O2 Delivery O2 Flow Rate FiO2 08/09/21 06:00 98.4 79 18 131/65 (87) 91 Room Air I&O- Last 24 Hours up to 6 AM 08/09/21 06:00 Intake Total 3060 ml Output Total 0 ml Balance 3060 ml MARCELLA RICHARDSON MD Aug 09, 2021 09:10
[2021-08-09] MEDS: ACETAMINOPHEN TAB 650MG DOSE (2X325MG) PO PRN ×2 (13:57→20:33)
[2021-08-09 14:00] VITALS: BP 129/62
[2021-08-09] MEDS ORDERED: IBUPROFEN 400MG TAB PO PRN (16:40)
--- NOTE | 2021-08-09 17:32 | REP ---
INDICATION: persistent fever. COMPARISON: None. TECHNIQUE: Single view abdomen and pelvis. FINDINGS: There is mild air and fecal material scattered throughout a nondilated colon. There is no compelling evidence for bowel obstruction. There are scattered vascular calcifications in the abdomen and pelvis. Metallic internal fixation is seen in the proximal right femur. Metallic clips are seen in the right upper quadrant. IMPRESSION: Nonspecific bowel gas pattern with no compelling evidence for bowel obstruction. <Electronically signed by Bari Cobos > 08/09/21 [id number]
--- NOTE | 2021-08-09 17:35 | REP ---
INDICATION: persistent fever. COMPARISON: 08/07/2021 as well as other prior exams. TECHNIQUE: Single portable AP view of the chest was performed. FINDINGS: There is bilateral fibrotic scarring predominantly in the upper lobes, with mild biapical pleural thickening. There is mild infiltrate in the medial right lung base. There are mild scattered infiltrates throughout the left lung. There appear to be small bilateral pleural effusions. The heart is not enlarged. The mediastinal silhouette is unchanged with some calcification of the thoracic aorta. IMPRESSION: Mild diffuse left lung infiltrate. Small infiltrate medial right lung base. Small bilateral pleural effusions. <Electronically signed by Bari Cobos > 08/09/21 [id number]
--- NOTE | 2021-08-09 19:20 | CR ---
ADVANCED WOUND CARE CONSULTATION VIA TELEMEDICINE DATE: 08/09/2021 REQUESTING PHYSICIAN: Dr. Cassie Arthur CONSULTING PHYSICIAN: Dr. Tyson Burgos REASON FOR CONSULTATION: Left lower extremity wound care. Wound care telemedicine provides a visual assessment of a wound without the benefit of physical examination. This can assist with establishing a diagnosis and etiology. This allows for an initial treatment plan. As wounds often change, it may be necessary to modify the original care. Our recommendation is periodic wound reassessment to monitor treatment. Failure to comply may result in non healing of the wound, possible complications and/or a poor outcome. The recommendations given will serve as treatment options. As I will not be following this patient, this care plan will require the attending physician to give and sign the orders. Upon discharge outpatient follow up can be scheduled at our [facility] Care [facility]. HISTORY OF PRESENT ILLNESS: A 76-year-old female with longstanding left lower extremity venous stasis ulcers associated with gravitational dependent edema who was admitted for uncontrolled atrial fibrillation and tachycardia. The patient was also found to be febrile with a temperature of 101.8. Preliminary evaluation shows the patient in atrial fibrillation. Chest x-ray showed no acute changes. CBC 5.5 cm, hemoglobin A1c not obtained. ASSESSMENT: On physical examination the patient's left lower extremity is decompressed. There is difuse venous wound clustering on the medial supramalleolar area involving the majority of the left lower extremity. There are skin bridges present between wounds.. There was no erythema involving the jade-wounds. The wound bases areas of shows previously applied Endoform advanced tissue matrix which has been partially degraded. This should not be confused with purulent exudate or infection. A wound culture will show colonizes bacteria and should not be used as an antibiotic treatment plan. PLAN: Treatment for this patient cleanse the wound with Vashe wound cleanser, cleaning the entire leg in a mild scrubbing manner, then apply the Vashe to the wound base itself for 10 minutes. This can be then irrigated off with saline. Dressing should include Hydrofera Blue Transfer cover with an Optilock and a TubiGrip stocking. The patient should a hematocrit A1c drawn. On inspecting the wound, I cannot correlate a high fever of 101.8 with what I am seeing. The left leg does not represent cellulitis. A urine culture should be obtained and a repeat chest x- ray should be also obtained. Inspection of the right lower extremity shows no open wounds. A search for an additional source causing an elevated temperature should be entertained. As mentioned, the patient's wound appears stable and in my opinion is not the etiology of her fever. When the patient is ready for discharge follow up at our Wound Clinic is recommended. The patient's diet should be supplemented with Isaac twice daily and Glucerna. MTDD
[2021-08-09 19:31] LABS: HEMOGLOBIN A1c 7.1 %
--- NOTE | 2021-08-09 20:24 | IPNPDOC ---
Text Note Date of Service The patient was seen on 08/09/21. NOTE Notified by nursing staff at approx 1999 that patient had converted into a-fib RVR with rates as high as 140. Saw and examined patient at this time who was resting comfortably and was entirely unaware of her arrhythmia. Physical exam remarkable for tachy rate, irregularly irregular rhythm on cardiac auscultation and scattered crackles on pulmonary auscultation. Since patient had received her last oral dose of metoprolol 2 hours prior to my exam, decision was made to transfer patient to PCU for closer monitoring and IV anti-arrhythmics. #A-fib RVR - will trial IV beta blockers and reassess need for further intervention - bmp, mag ordered to check for electrolyte imbalance - will check bnp to r/o fluid overload as cause for rvr exacerbation - will check troponin to r/o acs as cause for rvr exacerbation, however this seems very unlikely at this time - pt to pcu on tele VS,Yissel, I+O VS, Yessie, I+O Laboratory Tests 08/09/21 09:07 08/09/21 10:26 Vital Signs Date Time Temp Pulse Resp B/P (MAP) Pulse Ox O2 Delivery O2 Flow Rate FiO2 08/09/21 18:05 99 111/74 08/09/21 16:52 99.5 08/09/21 14:00 18 90 Room Air I&O- Last 24 Hours up to 6 AM 08/09/21 06:00 Intake Total 3060 ml Output Total 0 ml Balance 3060 ml OBED QUINTANA Aug 09, 2021 20:24
[2021-08-09 21:11] LABS: BLOOD UREA NITROGEN 16 MG/DL (7-18); CARBON DIOXIDE LEVEL 22 MEQ/L (21-32); CHLORIDE LEVEL 108 MEQ/L (98-107); CREATININE FOR GFR 0.84 MG/DL (0.55-1.30); GLOMERULAR FILTRATION RATE > 60.0 (>39); GLUCOSE, FASTING 215 MG/DL (70-100); MAGNESIUM LEVEL 1.6 MG/DL (1.8-2.4); POTASSIUM SERUM 3.3 MEQ/L (3.5-5.1); SODIUM LEVEL 140 MEQ/L (136-145)
[2021-08-09 21:20] VITALS: BP 111/63
[2021-08-09 21:23] LABS: CK-MB VALUE MASS 1.7 NG/ML (<3.6); MB/CK RELATIVE INDEX 1.85 (< OR =4)
[2021-08-09] MEDS ORDERED: METOPROLOL 5 MG/5 ML VIAL IV SCH (21:35)
[2021-08-09] MEDS ORDERED: POTASSIUM CHLORIDE 10MEQ SR TABLET PO ONE (21:50)
[2021-08-09] MEDS ORDERED: MAG SULF 1GM/100ML (MAG RUN) 1 GM in IV 1 EA IV ONE (21:50)
[2021-08-09] MEDS ORDERED: FUROSEMIDE 20MG/2ML VIAL (J1940) IV ONE (21:50)
[2021-08-10 00:10] VITALS: BP 115/72
[2021-08-10] MEDS: METOPROLOL TART 25 MG TABLET PO SCH ×4 (00:12→18:00)
[2021-08-10 04:00] VITALS: BP 125/79
[2021-08-10 05:34] LABS: HEMATOCRIT 33.4 % (36.0-47.0); HEMOGLOBIN 10.9 g/dl (12.0-15.5); MEAN CORPUSCULAR HEMOGLOBIN 27.3 pg (27.0-33.0); MEAN CORPUSCULAR HGB CONC 32.6 g/dl (32.0-36.5); MEAN CORPUSCULAR VOLUME 83.5 fl (80.0-96.0); PLATELET COUNT, AUTOMATED 115 10^3/uL (150-450); WHITE BLOOD COUNT 5.1 10^3/uL (4.0-10.0)
[2021-08-10 05:55] LABS: BLOOD UREA NITROGEN 14 MG/DL (7-18); CALCIUM LEVEL 8.1 MG/DL (8.8-10.2); CARBON DIOXIDE LEVEL 24 MEQ/L (21-32); CHLORIDE LEVEL 107 MEQ/L (98-107); CREATININE FOR GFR 0.82 MG/DL (0.55-1.30); GLOMERULAR FILTRATION RATE > 60.0 (>39); GLUCOSE, FASTING 177 MG/DL (70-100); POTASSIUM SERUM 3.4 MEQ/L (3.5-5.1); SODIUM LEVEL 141 MEQ/L (136-145)
[2021-08-10 07:50] VITALS: BP 106/56
[2021-08-10] MEDS ORDERED: AZITHROMYCIN INJ 500 MG, VIAL MATE ADAPTER 1 EACH in NS 250 ML IV SCH (09:00)
[2021-08-10] MEDS ORDERED: POTASSIUM CHLORIDE 10MEQ SR TABLET PO ONE (09:00)
[2021-08-10] MEDS: HumaLOG INSULIN (NovoLOG) PER UNIT SC SCH ×4 (09:31→20:55)
[2021-08-10] MEDS: cefTRIAXone SOD 1 GM in D5W MINI-BAG PLUS 50 ML IV SCH (09:31)
[2021-08-10] MEDS: LACTOBACILLUS ACIDOPHILUS CAP (BACID) PO SCH (09:32)
[2021-08-10] MEDS: MULTIVITAMINS/MINERALS THERAP 1 TAB PO SCH (09:33)
[2021-08-10] MEDS: DOCUSATE SODIUM 100MG CAPSULE PO SCH (09:33)
[2021-08-10] MEDS: OMEPRAZOLE 20 MG CAP PO SCH ×2 (09:33→20:48)
[2021-08-10] MEDS: APIXABAN 5 MG TAB (ELIQUIS) PO SCH ×2 (09:33→20:48)
[2021-08-10] MEDS: FERROUS SULFATE 325MG TAB PO SCH (09:33)
[2021-08-10] MEDS: MAGNESIUM OXIDE 400MG TAB (MAG-OX) PO SCH (09:33)
[2021-08-10] MEDS: busPIRone 5 MG TAB PO SCH ×2 (09:33→20:48)
[2021-08-10 11:53] VITALS: BP 101/56
[2021-08-10] MEDS: DIMETHICONE 2% OINTMENT(VANICREAM) 70GM TUBE TOP SCH (14:52)
[2021-08-10 16:08] VITALS: BP 122/57
[2021-08-10 20:05] VITALS: BP 100/69
[2021-08-10] MEDS: DOXYCYCLINE HYCLATE 100 MG in D5W MINI-BAG PLUS 100 ML IV SCH (20:49)
[2021-08-11 00:05] VITALS: BP 115/57
[2021-08-11 04:00] VITALS: BP 99/50
[2021-08-11 05:28] LABS: HEMATOCRIT 30.7 % (36.0-47.0); HEMOGLOBIN 9.8 g/dl (12.0-15.5); MEAN CORPUSCULAR HGB CONC 31.9 g/dl (32.0-36.5); MEAN CORPUSCULAR VOLUME 84.6 fl (80.0-96.0); PLATELET COUNT, AUTOMATED 109 10^3/uL (150-450); RED BLOOD COUNT 3.63 10^6/uL (4.00-5.40)
[2021-08-11 05:48] LABS: BLOOD UREA NITROGEN 14 MG/DL (7-18); CALCIUM LEVEL 7.9 MG/DL (8.8-10.2); CARBON DIOXIDE LEVEL 24 MEQ/L (21-32); CHLORIDE LEVEL 108 MEQ/L (98-107); CREATININE FOR GFR 0.74 MG/DL (0.55-1.30); GLOMERULAR FILTRATION RATE > 60.0 (>39); GLUCOSE, FASTING 164 MG/DL (70-100); POTASSIUM SERUM 3.6 MEQ/L (3.5-5.1); SODIUM LEVEL 139 MEQ/L (136-145)
[2021-08-11] MEDS: METOPROLOL TART 25 MG TABLET PO SCH ×4 (06:00→17:13)
[2021-08-11 07:31] VITALS: BP 114/55
[2021-08-11] MEDS: HumaLOG INSULIN (NovoLOG) PER UNIT SC SCH ×4 (08:16→20:42)
[2021-08-11] MEDS: cefTRIAXone SOD 1 GM in D5W MINI-BAG PLUS 50 ML IV SCH (08:16)
[2021-08-11] MEDS: busPIRone 5 MG TAB PO SCH ×2 (08:16→20:44)
[2021-08-11] MEDS: LACTOBACILLUS ACIDOPHILUS CAP (BACID) PO SCH (08:16)
[2021-08-11] MEDS: MULTIVITAMINS/MINERALS THERAP 1 TAB PO SCH (08:16)
[2021-08-11] MEDS: DOCUSATE SODIUM 100MG CAPSULE PO SCH (08:17)
[2021-08-11] MEDS: APIXABAN 5 MG TAB (ELIQUIS) PO SCH ×2 (08:17→20:44)
[2021-08-11] MEDS: FERROUS SULFATE 325MG TAB PO SCH (08:17)
[2021-08-11] MEDS: MAGNESIUM OXIDE 400MG TAB (MAG-OX) PO SCH (08:17)
[2021-08-11] MEDS: OMEPRAZOLE 20 MG CAP PO SCH ×2 (08:17→20:44)
[2021-08-11] MEDS: DIMETHICONE 2% OINTMENT(VANICREAM) 70GM TUBE TOP SCH (09:00)
[2021-08-11] MEDS: DOXYCYCLINE HYCLATE 100 MG in D5W MINI-BAG PLUS 100 ML IV SCH ×2 (10:13→20:45)
[2021-08-11] MEDS ORDERED: DIGOXIN INJ 0.5 MG/2 ML AMP (J1160) IV STA (10:36)
--- NOTE | 2021-08-11 10:37 | IPNPDOC ---
Text Note Date of Service The patient was seen on 08/10/21. NOTE SUBJECTIVE: -No acute complaints, had episodic fevers -see by wound care, wound not infected, left recs, I however have to disagree and I believe that she has ongoing cellilitis given unilateral erythema and hotness to touch in the associated leg and that warrants antibiotic therapy. Physical Examination General: Alert, Cooperative, No Acute Distress Eyes: PERRLA, Conjunctiva & lids normal, EOM, anicteric ENT: Atraumatic, Mucous membr. moist/pink, Pharynx Normal Neck: Supple, no JVD, no thyromegaly Chest: Normal air movement, CTAB, no rales, rhonchi or wheezing, breathing comfortably on room air Heart:Irregularly irregular, Normal S1, Normal S2, no m/r/g Abdomen: Normal bowel sounds, Soft, NTND Extremities: thready but palpable DP pulses, erythematous LLE, warmth, has a wound with brown drainage. Bilaterally she has chronic venous stasis changes with patchy hemosiderosis Neuro: Normal Speech, Cranial Nerves 3-12 NL, Reflexes 2+, Normal Gait Psych: Alert and Oriented x 3 Laboratory Data: Pending AM labs Microbiology 08/08/21 Urine Culture, Received Pending 08/07/21 Blood Culture, Received Pending 08/07/21 Blood Culture, Received Pending CXR: There is bilateral fibrotic scarring predominantly in the upper lobes, with mild biapical pleural thickening. There is mild infiltrate in the medial right lung base. There are mild scattered infiltrates throughout the left lung. There appear to be small bilateral pleural effusions. The heart is not enlarged. The mediastinal silhouette is unchanged with some calcification of the thoracic aorta. IMPRESSION: Mild diffuse left lung infiltrate. Small infiltrate medial right lung base. Small bilateral pleural effusions. Assessment/Plan: LLE Cellulitis in pt with Chronic LLE Venous stasis Ulcer: -Elevate extremity above level of heart when supine -Continue empiric coverage with vanc and ceftriaxone,f/u MRSA PCR -f/u BC and wound culture -Consult placed for Dr. Burgos for wound management Chronic Afib: -tele -Check electrolytes and replete daily -Continue home NoAC UTI: w/ dysuria and +UA -continue empiric ceftriaxone -f/u UCx Chronic anemia: Hgb 9.4, stable from prior. -Continue Iron supplementation. DM : -held metformin given poor PO -ACHS accuchecks and SSI -consistent carb diet Tobacco Use: -Encouraged cessation. Deconditioning -PT/OT DVT Px: Eliquis CODE Status: Full Dispo planning: Home pend clinical improvement VS,Fishbone, I+O VS, Fishbone, I+O Laboratory Tests 08/09/21 09:07 08/09/21 10:26 08/09/21 20:35 08/10/21 05:02 08/10/21 05:03 Vital Signs Date Time Temp Pulse Resp B/P (MAP) Pulse Ox O2 Delivery O2 Flow Rate FiO2 08/10/21 06:09 78 107/54 08/10/21 04:00 99.7 18 95 Room Air I&O- Last 24 Hours up to 6 AM 08/10/21 06:00 Intake Total 1500 ml Balance 1500 ml MARCELLA RICHARDSON MD Aug 10, 2021 08:54
--- NOTE | 2021-08-11 10:58 | IPNPDOC ---
Text Note Date of Service The patient was seen on 08/11/21. NOTE SUBJECTIVE: -No acute complaints, had episodic fevers OBJECTIVE: General: Alert, Cooperative, No Acute Distress Eyes: PERRLA, Conjunctiva & lids normal, EOM, anicteric ENT: Atraumatic, Mucous membr. moist/pink, Pharynx Normal Neck: Supple, no JVD, no thyromegaly Chest: Normal air movement, CTAB, no rales, rhonchi or wheezing, breathing comfortably on room air Heart:Irregularly irregular, Normal S1, Normal S2, no m/r/g Abdomen: Normal bowel sounds, Soft, NTND Extremities: Palpable pulses, hot erythema of LLE has improved and so has the exquisite tenderness. Wound is dressed. Bilaterally she has chronic venous stasis changes with patchy hemosiderosis, dry flaky skin Neuro: Normal Speech, Cranial Nerves 3-12 NL, Reflexes 2+, Normal Gait Psych: Alert and Oriented x 3 Laboratory Data: WBC 4 hgb 9.8 Platelets 109 na 139 K 3.6 Cr 0.74 Microbiology 08/08/21 Urine Culture, Received Pending 08/07/21 Blood Culture, Received Pending 08/07/21 Blood Culture, Received Pending CXR: There is bilateral fibrotic scarring predominantly in the upper lobes, with mild biapical pleural thickening. There is mild infiltrate in the medial right lung base. There are mild scattered infiltrates throughout the left lung. There appear to be small bilateral pleural effusions. The heart is not enlarged. The mediastinal silhouette is unchanged with some calcification of the thoracic aorta. IMPRESSION: Mild diffuse left lung infiltrate. Small infiltrate medial right lung base. Small bilateral pleural effusions. Assessment/Plan: Assessment: 76 yo W with significant hx of afib, DM, lower back pain, anemia, anxiety, cirrhosis, PVD and chronic LLE leg wound who presented with increased LLE pain/ redness x 3 days and admitted for cellulitis and now found to also have CAP. LLE Cellulitis in pt with Chronic LLE Venous stasis Ulcer: -Elevate extremity above level of heart when supine -Continue empiric coverage with ceftriaxone,doxy -consulted Dr. Burgos for wound management, recs per Dr. Burgos Chronic Afib with RVR at this time: -tele -Check electrolytes and replete daily -Continue home NoAC -25Q6H metop tartrate -will give digoxin 0.125 IV now for RVR Chronic anemia: Hgb 9.4, stable from prior. -Continue Iron supplementation. DM : -held metformin given poor PO -ACHS accuchecks and SSI -consistent carb diet Tobacco Use: -Encouraged cessation. Deconditioning -PT/OT DVT Px: Eliquis CODE Status: Full Dispo planning: Home pend clinical improvement VS,Fishbone, I+O VS, Fishbone, I+O Laboratory Tests 08/11/21 04:14 Vital Signs Date Time Temp Pulse Resp B/P (MAP) Pulse Ox O2 Delivery O2 Flow Rate FiO2 08/11/21 07:31 97.6 77 16 114/55 (74) 96 Room Air I&O- Last 24 Hours up to 6 AM 08/11/21 05:59 Intake Total 1020 ml Output Total 0 ml Balance 1020 ml MARCELLA RICHARDSON MD Aug 11, 2021 10:58
[2021-08-11 11:32] LABS: MAGNESIUM LEVEL 1.7 MG/DL (1.8-2.4)
[2021-08-11 12:00] VITALS: BP 118/56
[2021-08-11 16:00] VITALS: BP 115/55
[2021-08-11 20:00] VITALS: BP 111/55
[2021-08-12 00:34] VITALS: BP 109/56
[2021-08-12 04:00] VITALS: BP_SYST 125; BP_SYST 126; BP_DIAS 56; BP_DIAS 66
[2021-08-12 06:30] LABS: HEMATOCRIT 30.1 % (36.0-47.0); HEMOGLOBIN 9.7 g/dl (12.0-15.5); MEAN CORPUSCULAR HEMOGLOBIN 27.2 pg (27.0-33.0); MEAN CORPUSCULAR HGB CONC 32.2 g/dl (32.0-36.5); MEAN CORPUSCULAR VOLUME 84.3 fl (80.0-96.0); PLATELET COUNT, AUTOMATED 125 10^3/uL (150-450); RED BLOOD COUNT 3.57 10^6/uL (4.00-5.40); WHITE BLOOD COUNT 3.8 10^3/uL (4.0-10.0)
[2021-08-12 06:33] LABS: BLOOD UREA NITROGEN 12 MG/DL (7-18); CALCIUM LEVEL 7.8 MG/DL (8.8-10.2); CARBON DIOXIDE LEVEL 23 MEQ/L (21-32); CHLORIDE LEVEL 107 MEQ/L (98-107); GLOMERULAR FILTRATION RATE > 60.0 (>39); GLUCOSE, FASTING 172 MG/DL (70-100); POTASSIUM SERUM 3.6 MEQ/L (3.5-5.1); SODIUM LEVEL 139 MEQ/L (136-145)
[2021-08-12] MEDS: METOPROLOL TART 25 MG TABLET PO SCH ×4 (06:56→17:40)
[2021-08-12 08:00] VITALS: BP 112/58
[2021-08-12] MEDS: LACTOBACILLUS ACIDOPHILUS CAP (BACID) PO SCH (08:13)
[2021-08-12] MEDS: cefTRIAXone SOD 1 GM in D5W MINI-BAG PLUS 50 ML IV SCH (08:13)
[2021-08-12] MEDS: HumaLOG INSULIN (NovoLOG) PER UNIT SC SCH ×4 (08:13→20:29)
[2021-08-12] MEDS: DOCUSATE SODIUM 100MG CAPSULE PO SCH (08:13)
[2021-08-12] MEDS: MULTIVITAMINS/MINERALS THERAP 1 TAB PO SCH (08:13)
[2021-08-12] MEDS: FERROUS SULFATE 325MG TAB PO SCH (08:14)
[2021-08-12] MEDS: busPIRone 5 MG TAB PO SCH ×2 (08:14→20:18)
[2021-08-12] MEDS: OMEPRAZOLE 20 MG CAP PO SCH ×2 (08:14→20:18)
[2021-08-12] MEDS: MAGNESIUM OXIDE 400MG TAB (MAG-OX) PO SCH (08:14)
[2021-08-12] MEDS: APIXABAN 5 MG TAB (ELIQUIS) PO SCH ×2 (08:14→20:18)
[2021-08-12] MEDS ORDERED: POTASSIUM CHLORIDE 10MEQ SR TABLET PO ONE (09:00)
[2021-08-12] MEDS ORDERED: MAG SULF 1GM/100ML (MAG RUN) 1 GM in IV 1 EA IV ONE (09:00)
[2021-08-12] MEDS: DOXYCYCLINE HYCLATE 100 MG in D5W MINI-BAG PLUS 100 ML IV SCH ×2 (09:43→20:18)
[2021-08-12] MEDS: DIMETHICONE 2% OINTMENT(VANICREAM) 70GM TUBE TOP SCH (09:44)
--- NOTE | 2021-08-12 11:40 | IPNPDOC ---
Text Note Date of Service The patient was seen on 08/12/21. NOTE SUBJECTIVE: -No acute complaints -Afebrile -had significant RVR yesterday that improved after some IV digoxin OBJECTIVE: General: Alert, Cooperative, No Acute Distress Eyes: PERRLA, Conjunctiva & lids normal, EOM, anicteric ENT: Atraumatic, Mucous membr. moist/pink, Pharynx Normal Neck: Supple, no JVD, no thyromegaly Chest: Normal air movement, CTAB, no rales, rhonchi or wheezing, breathing comfortably on room air Heart:Irregularly irregular, Normal S1, Normal S2, no m/r/g Abdomen: Normal bowel sounds, Soft, NTND Extremities: Palpable pulses, hot erythema of LLE has improved a lot. Wound is dressed. Bilaterally she has chronic venous stasis changes with patchy hemos iderosis, dry flaky skin Neuro: Normal Speech, Cranial Nerves 3-12 NL, Reflexes 2+, Normal Gait Psych: Alert and Oriented x 3 Laboratory Data: WBC 3.8 hgb 9.7 Platelets 125 na 139 K 3.6 Cr 0.74 Microbiology 08/08/21 Urine Culture, Received Pending 08/07/21 Blood Culture, Received Pending 08/07/21 Blood Culture, Received Pending CXR: There is bilateral fibrotic scarring predominantly in the upper lobes, with mild biapical pleural thickening. There is mild infiltrate in the medial right lung base. There are mild scattered infiltrates throughout the left lung. There appear to be small bilateral pleural effusions. The heart is not enlarged. The mediastinal silhouette is unchanged with some calcification of the thoracic aorta. IMPRESSION: Mild diffuse left lung infiltrate. Small infiltrate medial right lung base. Small bilateral pleural effusions. Assessment/Plan: Assessment: 76 yo W with significant hx of afib, DM, lower back pain, anemia, anxiety, ci rrhosis, PVD and chronic LLE leg wound who presented with increased LLE pain/ redness x 3 days and admitted for cellulitis and now found to also have CAP. LLE Cellulitis in pt with Chronic LLE Venous stasis Ulcer: -Elevate extremity above level of heart when supine -Continue empiric coverage with ceftriaxone,doxy -consulted Dr. Burgos for wound management, recs per Dr. Burgos Chronic Afib with RVR at this time: improving -tele -Check electrolytes and replete daily -Continue home NoAC -25Q6H metop tartrate -s/p digoxin 0.125 IV x 1 yesterday Chronic anemia: Hgb 9.4, stable from prior. -Continue Iron supplementation. DM : -held metformin given poor PO -ACHS accuchecks and SSI -consistent carb diet Tobacco Use: -Encouraged cessation. Deconditioning -PT/OT DVT Px: Eliquis CODE Status: Full Dispo planning: Home pend clinical improvement. PT/OT VS,Fishbone, I+O VS, Fishbone, I+O Laboratory Tests 08/12/21 05:15 Vital Signs Date Time Temp Pulse Resp B/P (MAP) Pulse Ox O2 Delivery O2 Flow Rate FiO2 08/12/21 08:00 97.8 98 16 112/58 (76) 97 Room Air I&O- Last 24 Hours up to 6 AM 08/12/21 06:00 Intake Total 897 ml Output Total 0 ml Balance 897 ml MARCELLA RICHARDSON MD Aug 12, 2021 09:02
[2021-08-12 12:00] VITALS: BP 109/55
[2021-08-12 16:00] VITALS: BP 110/59
[2021-08-12 20:00] VITALS: BP 101/50
[2021-08-13] VITALS (7 sets, daily range): BP systolic 101–132; BP diastolic 51–70
[2021-08-13] MEDS: ACETAMINOPHEN TAB 650MG DOSE (2X325MG) PO PRN ×2 (03:12→14:57)
[2021-08-13] MEDS: METOPROLOL TART 25 MG TABLET PO SCH ×5 (05:43→23:48)
[2021-08-13 06:19] LABS: HEMOGLOBIN 9.2 g/dl (12.0-15.5); MEAN CORPUSCULAR HEMOGLOBIN 26.9 pg (27.0-33.0); MEAN CORPUSCULAR HGB CONC 31.7 g/dl (32.0-36.5); MEAN CORPUSCULAR VOLUME 84.8 fl (80.0-96.0); PLATELET COUNT, AUTOMATED 141 10^3/uL (150-450); RED BLOOD COUNT 3.42 10^6/uL (4.00-5.40); WHITE BLOOD COUNT 3.7 10^3/uL (4.0-10.0)
[2021-08-13 06:37] LABS: BLOOD UREA NITROGEN 11 MG/DL (7-18); CALCIUM LEVEL 8.8 MG/DL (8.8-10.2); CARBON DIOXIDE LEVEL 24 MEQ/L (21-32); CHLORIDE LEVEL 106 MEQ/L (98-107); CREATININE FOR GFR 0.59 MG/DL (0.55-1.30); GLOMERULAR FILTRATION RATE > 60.0 (>39); GLUCOSE, FASTING 156 MG/DL (70-100); POTASSIUM SERUM 3.7 MEQ/L (3.5-5.1); SODIUM LEVEL 137 MEQ/L (136-145)
[2021-08-13] MEDS: HumaLOG INSULIN (NovoLOG) PER UNIT SC SCH ×4 (09:08→21:00)
[2021-08-13] MEDS: LACTOBACILLUS ACIDOPHILUS CAP (BACID) PO SCH (09:08)
[2021-08-13] MEDS: cefTRIAXone SOD 1 GM in D5W MINI-BAG PLUS 50 ML IV SCH (09:08)
[2021-08-13] MEDS: DOCUSATE SODIUM 100MG CAPSULE PO SCH (09:08)
[2021-08-13] MEDS: FERROUS SULFATE 325MG TAB PO SCH (09:09)
[2021-08-13] MEDS: MAGNESIUM OXIDE 400MG TAB (MAG-OX) PO SCH (09:09)
[2021-08-13] MEDS: MULTIVITAMINS/MINERALS THERAP 1 TAB PO SCH (09:09)
[2021-08-13] MEDS: busPIRone 5 MG TAB PO SCH ×2 (09:09→21:14)
[2021-08-13] MEDS: APIXABAN 5 MG TAB (ELIQUIS) PO SCH ×2 (09:09→21:14)
[2021-08-13] MEDS: OMEPRAZOLE 20 MG CAP PO SCH ×2 (09:09→21:14)
[2021-08-13] MEDS: DIMETHICONE 2% OINTMENT(VANICREAM) 70GM TUBE TOP SCH (09:10)
[2021-08-13] MEDS: DOXYCYCLINE HYCLATE 100 MG in D5W MINI-BAG PLUS 100 ML IV SCH ×2 (10:02→21:14)
--- NOTE | 2021-08-13 11:05 | IPNPDOC ---
Text Note Date of Service The patient was seen on 08/13/21. NOTE SUBJECTIVE: -No acute complaints OBJECTIVE: General: Alert, Cooperative, No Acute Distress Eyes: PERRLA, Conjunctiva & lids normal, EOM, anicteric ENT: Atraumatic, Mucous membr. moist/pink, Pharynx Normal Neck: Supple, no JVD, no thyromegaly Chest: Normal air movement, CTAB, no rales, rhonchi or wheezing, breathing comfortably on room air Heart:Irregularly irregular, Normal S1, Normal S2, no m/r/g Abdomen: Normal bowel sounds, Soft, NTND Extremities: Palpable pulses, mild erythema of LLE on chronic hemosiderosis. Wound is dressed. Bilaterally she has chronic venous stasis changes with patchy hemosiderosis, dry flaky skin Neuro: Normal Speech, Cranial Nerves 3-12 NL, Reflexes 2+, Normal Gait Psych: Alert and Oriented x 3 Laboratory Data: WBC 3.7 hgb 9.2 Platelets 141 na 137 K 3.7 Cr 0.59 Microbiology 08/08/21 Urine Culture, Received Pending 08/07/21 Blood Culture, Received Pending 08/07/21 Blood Culture, Received Pending CXR: There is bilateral fibrotic scarring predominantly in the upper lobes, with mild biapical pleural thickening. There is mild infiltrate in the medial right lung base. There are mild scattered infiltrates throughout the left lung. There appear to be small bilateral pleural effusions. The heart is not enlarged. The mediastinal silhouette is unchanged with some calcification of the thoracic aorta. IMPRESSION: Mild diffuse left lung infiltrate. Small infiltrate medial right lung base. Small bilateral pleural effusions. Assessment/Plan: Assessment: 76 yo W with significant hx of afib, DM, lower back pain, anemia, anxiety, cirrhosis, PVD and chronic LLE leg wound who presented with increased LLE pain/ redness x 3 days and admitted for cellulitis and now found to also have CAP. LLE Cellulitis in pt with Chronic LLE Venous stasis Ulcer: -Elevate extremity above level of heart when supine -Continue coverage with ceftriaxone,doxy (also for CAP) -consulted Dr. Burgos for wound management, recs per Dr. Burgos CAP: -continue ceftriaxone/doxy Chronic Afib with ongoing episodic RVR: improving -tele -Check electrolytes and replete daily -Continue home NoAC -25Q6H metop tartrate, with hold parameters -s/p digoxin 0.125 IV x 1 on 08/11 Chronic anemia: Hgb 9.4, stable from prior. -Continue Iron supplementation. DM : -held metformin given poor PO -ACHS accuchecks and SSI -consistent carb diet Tobacco Use: -Encouraged cessation. Deconditioning -PT/OT DVT Px: Eliquis CODE Status: Full Dispo planning: Home pend clinical improvement. PT/OT VS,Fishbone, I+O VS, Fishbone, I+O Laboratory Tests 08/13/21 05:46 Vital Signs Date Time Temp Pulse Resp B/P (MAP) Pulse Ox O2 Delivery O2 Flow Rate FiO2 08/13/21 05:43 62 101/53 08/13/21 04:00 99.1 17 97 Room Air I&O- Last 24 Hours up to 6 AM 08/13/21 06:00 Intake Total 1180 ml Output Total 250 ml Balance 930 ml MARCELLA RICHARDSON MD Aug 13, 2021 08:11
[2021-08-14] VITALS: BP 104/58
[2021-08-14 04:00] VITALS: BP 91/57
[2021-08-14 04:29] LABS: HEMATOCRIT 29.7 % (36.0-47.0); HEMOGLOBIN 9.6 g/dl (12.0-15.5); MEAN CORPUSCULAR HEMOGLOBIN 27.2 pg (27.0-33.0); MEAN CORPUSCULAR HGB CONC 32.3 g/dl (32.0-36.5); MEAN CORPUSCULAR VOLUME 84.1 fl (80.0-96.0); PLATELET COUNT, AUTOMATED 163 10^3/uL (150-450); RED BLOOD COUNT 3.53 10^6/uL (4.00-5.40); WHITE BLOOD COUNT 3.6 10^3/uL (4.0-10.0)
[2021-08-14] MEDS ORDERED: NS 500 ML IV ONE (04:50)
[2021-08-14] MEDS ORDERED: DIGOXIN INJ 0.5 MG/2 ML AMP (J1160) IV ONE (04:50)
[2021-08-14 04:52] LABS: BLOOD UREA NITROGEN 12 MG/DL (7-18); CALCIUM LEVEL 8.5 MG/DL (8.8-10.2); CARBON DIOXIDE LEVEL 26 MEQ/L (21-32); CHLORIDE LEVEL 105 MEQ/L (98-107); CREATININE FOR GFR 0.62 MG/DL (0.55-1.30); GLOMERULAR FILTRATION RATE > 60.0 (>39); GLUCOSE, FASTING 162 MG/DL (70-100); POTASSIUM SERUM 3.8 MEQ/L (3.5-5.1); SODIUM LEVEL 139 MEQ/L (136-145)
[2021-08-14] MEDS: METOPROLOL TART 25 MG TABLET PO SCH ×3 (05:10→18:00)
[2021-08-14 08:00] VITALS: BP 92/58
[2021-08-14] MEDS: HumaLOG INSULIN (NovoLOG) PER UNIT SC SCH ×4 (08:15→21:00)
[2021-08-14] MEDS: LACTOBACILLUS ACIDOPHILUS CAP (BACID) PO SCH (08:15)
[2021-08-14] MEDS: cefTRIAXone SOD 1 GM in D5W MINI-BAG PLUS 50 ML IV SCH (08:15)
[2021-08-14] MEDS: MULTIVITAMINS/MINERALS THERAP 1 TAB PO SCH (08:15)
[2021-08-14] MEDS: FERROUS SULFATE 325MG TAB PO SCH (08:16)
[2021-08-14] MEDS: DOCUSATE SODIUM 100MG CAPSULE PO SCH (08:16)
[2021-08-14] MEDS: MAGNESIUM OXIDE 400MG TAB (MAG-OX) PO SCH (08:16)
[2021-08-14] MEDS: APIXABAN 5 MG TAB (ELIQUIS) PO SCH ×2 (08:16→21:24)
[2021-08-14] MEDS: OMEPRAZOLE 20 MG CAP PO SCH ×2 (08:16→21:24)
[2021-08-14] MEDS: busPIRone 5 MG TAB PO SCH ×2 (08:19→21:23)
[2021-08-14] MEDS: ACETAMINOPHEN TAB 650MG DOSE (2X325MG) PO PRN (08:20)
[2021-08-14] MEDS ORDERED: CEFD300CAP PO (10:15)
[2021-08-14] MEDS ORDERED: METO1TAB87 PO (10:15)
[2021-08-14] MEDS ORDERED: DOXY100T PO (10:15)
[2021-08-14] MEDS ORDERED: RISATAB3 PO (10:15)
--- NOTE | 2021-08-14 10:30 | DS.PDOC ---
Discharge Summary General Date of Admission Aug 08, 2021 at 05:54 Date of Discharge 08/14/2021 Attending Physician: MARCELLA RICHARDSON MD Discharge Summary PROCEDURES PERFORMED DURING STAY: None ADMITTING DIAGNOSES: LLE cellulitis DISCHARGE DIAGNOSES: 1. . COMPLICATIONS/CHIEF COMPLAINT: Cellulitis Of Left Leg. HISTORY OF PRESENT ILLNESS: 76yo W with significant hx of chronic afib, DM, lower back pain, anemia, anxiety, cirrhosis, PVD and chronic LLE leg wound who presented with c/o increased LLE pain/ redness x 3 days. She reported that she had been at baseline until 3 days ago when she started noticing increased discomfort of the LLE, redness and swelling. She sees Dr. Burgos with [facility]ound [facility] and has public health nurse come to her house who change her dressings twice weekly. Reportedly, there was an interval change in the wound appearance with last dressing change and she was supposed to hear back on going to the office sooner than her next appointment, but because of the worsening pain and developing a fever the night prior to presentation she came to the ED. HOSPITAL COURSE: She was afebrile upon arrival but had received tylenol in route with EMS. She was somewhat a poor historian but otherwise denied URI symptoms, cough, SOB, chest pain or n/v/d. On evaluation, pertinent labs included Wbc 10.2, no lactic acidosis, elevated CRP, initial XR that did not show acute pathology, LLE XR that showed soft tissue swelling. UA had some pyuria but cultures was ultimately negative, while BCx was negative x 2. Respiratory panel was also negative. She was placed on empiric ceftriaxone/vanc for LLE cellulitis and vanc was eventually discontinued after MRSA PCR was negative. Dr. Burgos was consulted and gave wound dressing recommendations but otherwise did not believe it was infected. I did however feel that she had milvia cellulitis and so I co ntinued the ceftriaxone and due to persisting fever, I did a CXR that eventually showed a developing PNA for which I added on doxycycline for atypical coverage. The fevers resolved. Her course was c/b Afib with RVR with some lability to her HR with at times asymptomatic transient bradycardia that improved. She is now being discharged home on 12.5 Q6H metop, with close PCP follow up and a cardiology referral for her Afib as I suspect that this lability may persist though the RVR may have been brought on by the infection and may resolve. DISCHARGE MEDICATIONS: Please see below. ALLERGIES: Please see below. PHYSICAL EXAMINATION ON DISCHARGE: VITAL SIGNS: Please see below. General: Alert, Cooperative, No Acute Distress Eyes: PERRLA, Conjunctiva & lids normal, EOM, anicteric ENT: Atraumatic, Mucous membr. moist/pink, Pharynx Normal Neck: Supple, no JVD, no thyromegaly Chest: Normal air movement, CTAB, no rales, rhonchi or wheezing, breathing comfortably on room air Heart:Irregularly irregular, Normal S1, Normal S2, no m/r/g Abdomen: Normal bowel sounds, Soft, NTND Extremities: Palpable pulses, mild erythema of LLE on chronic hemosiderosis. Wound is dressed. Bilaterally she has chronic venous stasis changes with patchy hemosiderosis, dry flaky skin Neuro: Normal Speech, Cranial Nerves 3-12 NL, Reflexes 2+, Normal Gait Psych: Alert and Oriented x 3 LABORATORY DATA: Please see below. IMAGIN/8 CXR: There is bilateral fibrotic scarring predominantly in the upper lobes, with mild biapical pleural thickening. There is mild infiltrate in the medial right lung base. There are mild scattered infiltrates throughout the left lung. There appear to be small bilateral pleural effusions. The heart is not enlarged. The mediastinal silhouette is unchanged with some calcification of the thoracic aorta. IMPRESSION: Mild diffuse left lung infiltrate. Small infiltrate medial right lung base. Small bilateral pleural effusions. Assessment/Plan: 08/09 AXR: There is mild air and fecal material scattered throughout a nondilated colon. There is no compelling evidence for bowel obstruction. There are scattered vascular calcifications in the abdomen and pelvis. Metallic internal fixation is seen in the proximal right femur. Metallic clips are seen in the right upper quadrant. IMPRESSION: Nonspecific bowel gas pattern with no compelling evidence for bowel obstruction. 08/07 Left tib/fib XR: Bones/joints: There is no fracture, dislocation, or bony destructive changes involving the left knee, left tibia, left fibula, or left ankle. There is thickening of the cortex of the left distal fibula, which has developed since the left tibia and fibula x-rays on 11/11/2014. There is chondrocalcinosis involving the medial and lateral compartments of the left knee. No left knee joint effusion is noted. Soft tissues: There is soft tissue swelling around the left ankle. There is a spur arising from the superior pole of the patella at the insertion of the left quadriceps tendon, which is compatible with a left quadriceps enthesopathy. There is a posterior calcaneal spur at the insertion of the Achilles tendon, which is compatible with a left Achilles enthesopathy. There is a plantar calcaneal spur at the origin of the left plantar fascia. Vasculature: There are atherosclerotic calcifications. IMPRESSION: 1. Thickening of the cortex of the left distal fibula, which has developed since the left tibia and fibula x-rays on 11/11/2014 may be secondary to old trauma or stress related changes. 2. Soft tissue swelling around the left ankle 08/07: CXR: Lungs: There is scarring of the lung apices. No lung consolidation or pulmonary edema is noted. Pleural spaces: Unremarkable. No pleural effusion. No pneumothorax. Heart/Mediastinum: No cardiomegaly. The meek are elevated, which is similar in appearance compared to the chest x-ray on 05/15/2021. Vasculature: There are atherosclerotic calcifications of the aortic arch. Bones/joints: Unremarkable. IMPRESSION: No acute findings. No significant change compared to the prior chest x-ray on 05/15/2021. 08/07 L ankle XR: Bones/joints: There is no fracture, dislocation, or bony destructive changes involving the left ankle. The ankle mortise is symmetric. There is thickening of the cortex of the left distal fibula, which has developed since the left tibia and fibula x-rays on 11/11/2014. Soft tissues: There is soft tissue swelling around the left ankle. There is a posterior calcaneal spur at the insertion of the Achilles tendon, which is compatible with a left Achilles enthesopathy. There is a plantar calcaneal spur at the origin of the left plantar fascia. Vasculature: There are atherosclerotic calcifications. IMPRESSION: 1. Thickening of the cortex of the left distal fibula, which has developed since the left tibia and fibula x-rays on 11/11/2014 may be secondary to old trauma or stress related changes. 2. Soft tissue swelling around the left ankle. PROGNOSIS: Good ACTIVITY: As tolerated DIET: consistent carb DISCHARGE PLAN: Home with services and home PT, 2d of cefdnir/doxy, PCP within 7d, cardiology referral within 2w DISPOSITION: Home with services and home PT DISCHARGE INSTRUCTIONS: Home with services and home PT, 2d of cefdnir/doxy, PCP within 7d, cardiology referral within 2w ITEMS TO FOLLOWUP ON ON OUTPATIENT: PCP- recent CAP, cellulitis Dr. Burgos - wound care Cardiology - Afib DISCHARGE CONDITION: Stable TIME SPENT ON DISCHARGE: 50 minutes. Vital Signs/I&Os Vital Signs Date Time Temp Pulse Resp B/P (MAP) Pulse Ox O2 Delivery O2 Flow Rate FiO2 08/14/21 08:00 99.3 134 17 92/58 (69) 97 Room Air I&O- Last 24 Hours up to 6 AM 08/14/21 05:59 Intake Total 1630 ml Balance 1630 ml Laboratory Data Labs 24H Laboratory Tests 2 08/13/21 11:27: Bedside Glucose (Misc Panel) 232H 08/13/21 16:23: Bedside Glucose (Misc Panel) 194H 08/13/21 21:11: Bedside Glucose (Misc Panel) 174H 08/14/21 03:59: Nucleated Red Blood Cells % (auto) 0.0, Anion Gap 8, Glomerular Filtration Rate > 60.0, Calcium Level 8.5L CBC/BMP Laboratory Tests 08/14/21 03:59 FSBS Laboratory Tests Test 08/13/21 11:27 08/13/21 16:23 08/13/21 21:11 Range/Units Bedside Glucose (Misc Panel) 232 194 174 83-110 MG/DL Microbiology Microbiology 08/09/21 Blood Culture - Preliminary, Resulted No Growth after 72 hours. All specime... 08/09/21 Blood Culture - Preliminary, Resulted No Growth after 72 hours. All specime... 08/08/21 Urine Culture - Final, Complete 08/07/21 Blood Culture - Final, Complete NO GROWTH AFTER 5 DAYS 08/07/21 Blood Culture - Final, Complete NO GROWTH AFTER 5 DAYS Discharge Medications Scheduled Acetaminophen (Acetaminophen) 325 Mg Tab, 650 MG PO BID, (Reported) Apixaban (Eliquis) 5 Mg Tablet, 5 MG PO BID, (Reported) Biotin (Biotin) 2,500 Mcg Capsule, 2,500 MCG PO DAILY, (Reported) Buspirone HCl (Buspirone HCl) 5 Mg Tablet, 5 MG PO BID, (Reported) Cefdinir (Cefdinir) 300 Mg Capsule, 300 MG PO BID Cholecalciferol (Vitamin D3) (Vitamin D3) 125 Mcg Capsule, 125 MCG PO DAILY, (Reported) Docusate Sodium (Stool Softener) 100 Mg Capsule, 100 MG PO DAILY, (Reported) Doxycycline Hyclate (Doxycycline Hyclate) 100 Mg Tablet, 100 MG PO BID Ferrous Sulfate (Ferrous Sulfate) 325 Mg Tablet.dr, 325 MG PO DAILY, (Reported) L.acidoph/L.bulg/B.bif/S.therm (Desiree-Bid Caplet) 1 Each Tablet, 1 EA PO DAILY Magnesium Oxide (Magnesium) 400 Mg Capsule, 400 MG PO DAILY, (Reported) Metformin HCl (Metformin HCl) 500 Mg Tab, 500 MG PO BID, (Reported) Metoprolol Tartrate (Metoprolol Tartrate) 25 Mg Tablet, 12.5 MG PO Q6H Multivitamins (Thera M Plus Tablet) 1 Each Tablet, 1 TAB PO DAILY, (Reported) Omeprazole (Omeprazole) 40 Mg Cap, 40 MG PO DAILY, (Reported) Potassium Chloride (Potassium Chloride) 8 Meq Tablet.er, 8 MEQ PO DAILY, (Report ed) Vitamin B Complex (Vitamin B Complex) 1 Each Tablet, 1 TAB PO DAILY, (Reported) Allergies Coded Allergies: Penicillins (Verified Allergy, Unknown, RASH, 03/20/21) bacitracin (Verified Allergy, Unknown, contact allergic dermatitis, 03/20/21) ciprofloxacin (Verified Allergy, Unknown, rash, 03/20/21) clindamycin (Verified Allergy, Unknown, rash, 03/20/21) neomycin (Verified Allergy, Unknown, contact allergic dermatitis, 03/20/21) polymyxin B (Verified Allergy, Unknown, contact allergic dermatitis, 03/20/21) MARCELLA RICHARDSON MD Aug 14, 2021 10:30
--- NOTE | 2021-08-14 10:30 | IPNPDOC ---
Text Note Date of Service The patient was seen on 08/14/21. NOTE SUBJECTIVE: -No acute complaints OBJECTIVE: General: Alert, Cooperative, No Acute Distress Eyes: PERRLA, Conjunctiva & lids normal, EOM, anicteric ENT: Atraumatic, Mucous membr. moist/pink, Pharynx Normal Neck: Supple, no JVD, no thyromegaly Chest: Normal air movement, CTAB, no rales, rhonchi or wheezing, breathing comfortably on room air Heart:Irregularly irregular, Normal S1, Normal S2, no m/r/g Abdomen: Normal bowel sounds, Soft, NTND Extremities: Palpable pulses, mild erythema of LLE on chronic hemosiderosis. Wound is dressed. Bilaterally she has chronic venous stasis changes with patchy hemosiderosis, dry flaky skin Neuro: Normal Speech, Cranial Nerves 3-12 NL, Reflexes 2+, Normal Gait Psych: Alert and Oriented x 3 Laboratory Data: Reviewed Microbiology 08/08/21 Urine Culture, Received Pending 08/07/21 Blood Culture, Received Pending 08/07/21 Blood Culture, Received Pending CXR: There is bilateral fibrotic scarring predominantly in the upper lobes, with mild biapical pleural thickening. There is mild infiltrate in the medial right lung base. There are mild scattered infiltrates throughout the left lung. There appear to be small bilateral pleural effusions. The heart is not enlarged. The mediastinal silhouette is unchanged with some calcification of the thoracic aorta. IMPRESSION: Mild diffuse left lung infiltrate. Small infiltrate medial right lung base. Small bilateral pleural effusions. Assessment/Plan: Assessment: 76 yo W with significant hx of afib, DM, lower back pain, anemia, anxiety, cirrhosis, PVD and chronic LLE leg wound who presented with increased LLE pain/ redness x 3 days and admitted for cellulitis and now found to also have CAP. LLE Cellulitis in pt with Chronic LLE Venous stasis Ulcer: -Elevate extremity above level of heart when supine -Switch to PO cefdnir/doxy (also for CAP) for 2 more days -consulted Dr. Burgos for wound management, recs per Dr. Burgos CAP: -Switch to cefdinir/doxy for 2 more days Chronic Afib with ongoing episodic RVR: improving -tele -Check electrolytes and replete daily -Continue home NoAC -25Q6H metop tartrate, with hold parameters -s/p digoxin 0.125 IV x 1 on 08/11 Chronic anemia: Hgb 9.4, stable from prior. -Continue Iron supplementation. DM : -held metformin given poor PO -ACHS accuchecks and SSI -consistent carb diet Tobacco Use: -Encouraged cessation. Deconditioning -PT/OT DVT Px: Eliquis CODE Status: Full Dispo planning: Pending PT/OT clearance VS,Fishbone, I+O VS, Fishbone, I+O Laboratory Tests 08/14/21 03:59 Vital Signs Date Time Temp Pulse Resp B/P (MAP) Pulse Ox O2 Delivery O2 Flow Rate FiO2 08/14/21 05:31 140 08/14/21 04:00 99.0 18 91/57 (68) 98 Room Air I&O- Last 24 Hours up to 6 AM 08/14/21 06:00 Intake Total 1630 ml Balance 1630 ml MARCELLA RICHARDSON MD Aug 14, 2021 09:11
[2021-08-14 11:57] VITALS: BP 103/53
[2021-08-14] MEDS: DIMETHICONE 2% OINTMENT(VANICREAM) 70GM TUBE TOP SCH (12:00)
[2021-08-14] MEDS: DOXYCYCLINE HYCLATE 100MG TABLET PO SCH ×2 (12:26→21:24)
[2021-08-14] MEDS: CEFDINIR 300 MG CAP (OMNICEF) PO SCH ×2 (12:26→21:23)
[2021-08-14 20:00] VITALS: BP 132/63
--- NOTE | 2021-08-14 20:28 | CR ---
CONSULTATION DATE: 08/14/2021 REQUESTING PHYSICIAN: Dr. Cassie Arthur CONSULTING PHYSICIAN: Dr. Josias Roper REASON FOR CONSULTATION: Paroxysmal atrial fibrillation HISTORY OF PRESENT ILLNESS: Mrs. Pandey is previously unknown to me. She is a pleasant 76-year-old female who was admitted to [facility] with cellulitis of the left lower extremity in the setting of fever and chills. During the hospitalization, it was noted that she has episodes of atrial fibrillation which sometimes have very rapid ventricular response exceeding 200 beats per minute. The episodes are paroxysmal, alternating with episodes of sinus rhythm or even sinus bradycardia, sometimes with heart rate in the low 40's. Fortunately, the patient is completely asymptomatic during these episodes or during episodes of sinus bradycardia. I was asked by Dr. Cortes to see the patient because of concern about her fast heart rate during the episodes of atrial fibrillation. The patient reported the atrial fibrillation was initially detected in March 2021 after she had peripheral intervention on the left lower extremity. She was briefly hospitalized and started on Metoprolol. Even then the pattern was very similar to what it is today, but she was ultimately discharged home on chronic Eliquis. Since that time, she reported that she stopped taking Metoprolol because she had episodes of hypotension and she figured herself that the medication was not well tolerated. She denied ever having any symptoms during these episodes of atrial fibrillation. PAST MEDICAL HISTORY: The patient's past medical history is significant for: 1. Paroxysmal atrial fibrillation as above. 2. Chronic venous insufficiency with venous stasis ulcerative left lower extremity. She is followed by Dr. Burgos. 3. Paroxysmal atrial fibrillation as outlined above. 4. Type 2 diabetes. 5. 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 I could not find any detailed evaluation in this matter in our computer system. The last liver function tests from summer of this year were normal. The patient denies any history of bleeding. She denies any history of encephalopathy. There is no history of ascites. 6. Left lower extremity ulcerations. 7. Gastroesophageal reflux disease. 8. Hiatal hernia. PAST SURGICAL HISTORY: The patient's past surgical history is significant for: 1. Cholecystectomy. 2. Skin cancer surgery. 3. Right hip ORIF. 4. Thrombophlebitis of lower extremity. OUTPATIENT MEDICATIONS: 1. Tylenol as needed. 2. Eliquis 5 twice daily. 3. Biotin. 4. Buspirone 5 mg twice daily. 5. Vitamin D. 6. Iron Sulfate 325 daily. 7. Magnesium 400 daily. 8. Metformin 500 twice daily. 9. Multivitamin. 10. Omeprazole 40 mg daily. 11. Potassium 8 mg daily. 12. Vitamin B complex. ALLERGIES: 1. The patient carries a history of allergy to Penicillin causing a rash. 2. Bacitracin also causing some form of dermatitis. 3. Ciprofloxacin. 4. Clindamycin. 5. Neomycin. 6. Polymixin-B. FAMILY HISTORY: The patient's mother of old age. Her father of cancer. SOCIAL HISTORY: The patient lives alone. She is single. There are no children. She used to be a stamping machine operator and carries a history of prior alcohol use that she quit many years ago. Ongoing smoking. No history of otherwise recreational drug use. REVIEW OF SYSTEMS: The patient denies any palpitations, chest pain or significant dyspnea with her fairly sedentary lifestyle. She ambulates with a walker in her apartment and gets assistance with her activities of daily living with visiting social workers and neighbors. There is no history of syncope or near syncope. She does not get dizzy as a rule. She denies any history of bleeding. She denies chest pain. The rest of the review of systems is negative except for as above. PHYSICAL EXAMINATION: GENERAL APPEARANCE: Mrs. Pandey is an elderly, frail woman. She is alert and oriented and pleasant, quite talkative. She does not appear to be in any distress. VITAL SIGNS: Last vital signs - blood pressure 103/53, heart rate around 150, irregularly irregular. There is considerable fluctuation in her heart rate. I suspect mostly depending on her level of anxiety or excitement. She is afebrile with a saturation of 97% on room air. Weight was recorded at 51 kg. NECK: Her JVP does not appear elevated. I do not appreciate a carotid bruit. LUNGS: Sound clear to me. No wheezing, crackles or rhonchi. HEART: Irregularly irregular rhythm without appreciable murmurs, rubs or gallops. ABDOMEN: Soft, no tenderness, rebound tenderness. I am unable to feel the liver. EXTREMITIES: Bandaged, more on the left lower extremity with prominent redness of her bob, ankle and foot. No distinct trophic defect visible below the dressing. NEUROLOGICAL: The patient is alert and oriented and appropriate. LABORATORY STUDIES: Basic metabolic panel as of today was normal with the exception of glucose 162. CBC - white blood cell count 3.6, hemoglobin 9.6, hematocrit 29.7 and platelet count 163,000. She on admission had negative serologies for influenza, SARS and COVID-19. Her N-terminal pro BNP on admission was quite elevated at 4,300. IMAGING: EKG reveals the presence of atrial fibrillation with rapid ventricular response and chest x-ray reveals questionable small effusion on the left side. I do not appreciate any distinct infiltrate or cardiomegaly. She had an echocardiogram earlier this year in summer that revealed preserved left ventricular systolic function and no significant valvular disease. ASSESSMENT AND PLAN: Mrs. Pandey is a 76-year-old female who has paroxysmal atrial fibrillation. The episodes are associated with very rapid ventricular rate on and alternate with episodes of sinus bradycardia. I could not find any evidence for pauses on telemetry. Fortunately she is asymptomatic throughout these developments. She tolerates chronic anticoagulation even though at times she was quite thrombocytopenic, potentially related to infections, antibiotics or even a possibly underlying liver cirrhosis. As far as management is concerned, it is certainly a conundrum because she undoubtedly has evidence for congestive heart failure that is likely related to her tachycardia. She cannot use antiarrhythmics from one C class. Also Sotalol is problematic. Consequently, Dofetilide and Amiodarone remain choices. Dofetilide is not available in our institution and it is associated with Torsades which certainly would be problematic. Amiodarone is also not an optimal choice due to its potential for buttermaker toxicity. But considering her very fast heart rate during episodes of atrial fibrillation, I think that this is the least of the evils. I would recommend to start it without loading, maybe just 200 mg twice daily, to be reduced to just 200 mg daily. The episodes are relatively asymptomatic and we will see what response she has. If that should not be successful, unfortunately a placement of the pacemaker remains the only feasible option. Otherwise I do not have strong objections for the patient being discharged home even tomorrow unless some new evidence occurs on telemetry. This pattern has been present for quite sometime and because she remains completely asymptomatic, I do not believe that she needs to be kept in the hospital provided her heart rate is somewhat reasonably controlled.
[2021-08-14] MEDS: AMIODARONE 200 MG TAB (PACERONE) PO SCH (21:24)
[2021-08-15 04:00] VITALS: BP 120/60
[2021-08-15 08:01] VITALS: BP 134/80
[2021-08-15] MEDS: DOXYCYCLINE HYCLATE 100MG TABLET PO SCH (09:46)
[2021-08-15] MEDS: ACETAMINOPHEN TAB 650MG DOSE (2X325MG) PO PRN (09:46)
[2021-08-15] MEDS: LACTOBACILLUS ACIDOPHILUS CAP (BACID) PO SCH (09:47)
[2021-08-15] MEDS: HumaLOG INSULIN (NovoLOG) PER UNIT SC SCH (09:47)
[2021-08-15] MEDS: CEFDINIR 300 MG CAP (OMNICEF) PO SCH (09:47)
[2021-08-15] MEDS: APIXABAN 5 MG TAB (ELIQUIS) PO SCH (09:47)
[2021-08-15] MEDS: MULTIVITAMINS/MINERALS THERAP 1 TAB PO SCH (09:48)
[2021-08-15] MEDS: OMEPRAZOLE 20 MG CAP PO SCH (09:48)
[2021-08-15] MEDS: AMIODARONE 200 MG TAB (PACERONE) PO SCH (09:48)
[2021-08-15] MEDS: DOCUSATE SODIUM 100MG CAPSULE PO SCH (09:48)
[2021-08-15] MEDS: busPIRone 5 MG TAB PO SCH (09:48)
[2021-08-15] MEDS: FERROUS SULFATE 325MG TAB PO SCH (09:48)
[2021-08-15] MEDS: MAGNESIUM OXIDE 400MG TAB (MAG-OX) PO SCH (09:48)
[2021-08-15] MEDS ORDERED: AMIO200T3 PO (11:41)
--- NOTE | 2021-08-16 07:34 | IPNPDOC ---
Subjective Date Seen The patient was seen on 08/15/21. Subjective Chief Complaint/HPI Feels well no complaints overnight. Remains in A fib but rate is now controlled. Seen by cardiology last night ans was started on amiodarone. Pateitn is stable to be discharged Home. Objective Physical Examination General Exam: Positive: Alert, Cooperative, No Acute Distress Eye Exam: Positive: PERRLA, Conjunctiva & lids normal, EOMI; Negative: Sclera icteric ENT Exam: Positive: Atraumatic, Mucous membr. moist/pink, Pharynx Normal, Other ENT (bitemporal wasting) Neck Exam: Positive: Supple; Negative: JVD, thyromegaly Chest Exam: Positive: Normal air movement Heart Exam: Positive: Rate Normal, Irregular Rhythm, Normal S1, Normal S2; Negative: Murmurs, Rubs Telemetry: Positive: Atrial fibrillation Abdomen Exam: Positive: Normal bowel sounds, Soft; Negative: Tenderness Extremity Exam: Positive: Edema (bilateral lower extremities with lymphedematous changes); Negative: Clubbing, Cyanosis Skin Exam: Positive: Breakdown (left leg), Other skin issue (erythema LLE, warmth, tenderness, chronic stasis ulcer) Neuro Exam: Positive: Normal Speech, Cranial Nerves 3-12 NL, Reflexes 2+; Negative: Normal Gait Psych Exam: Positive: Oriented x 3 Assessment /Plan Assessment Patient was not discharged yesterday due to Afib with RVR. Patient was seen by cardiology and started on amiodarone and pulse rate is better cotrolled today so she is being discharged home. Patient had episodes of very high pulse rate alternating with episodes of sinus bradycardia. Patient is not given any betablocker due to her episodes of intermittent bradycardia and also she was having low normal Bp in the hospital. For rest of the discharge summary and Hospital course please see the discharge note from 08/14/21. Discharge diagnosis: Left lower extremity cellulitis Paroxysmal atrial fibrillation with RVR Chronic venous insufficiency with venous stasis ulcerative left lower extremity. Type 2 diabetes. 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 Thrombocytopenia Gastroesophageal reflux disease. Hiatal hernia. lower back pain, anemia, anxiety, PVD Severe Protein calorie malnutrition with BMI of 16.8, bitemporal wasing, wasting of small muscles of hand and feet. Plan/VTE VTE Prophylaxis Ordered?: Yes VS, I&O, 24H, Fishbone Vital Signs/I&O Vital Signs Date Time Temp Pulse Resp B/P (MAP) Pulse Ox O2 Delivery O2 Flow Rate FiO2 08/15/21 08:01 97.9 85 18 134/80 (98) 100 Room Air I&O- Last 24 Hours up to 6 AM 08/16/21 06:00 Intake Total 480 ml Balance 480 ml Laboratory Data 24H LABS Laboratory Tests 2 08/15/21 08:19: Bedside Glucose (Misc Panel) 138H Microbiology Microbiology 08/09/21 Blood Culture - Final, Complete NO GROWTH AFTER 5 DAYS 08/09/21 Blood Culture - Final, Complete NO GROWTH AFTER 5 DAYS 08/08/21 Urine Culture - Final, Complete 08/07/21 Blood Culture - Final, Complete NO GROWTH AFTER 5 DAYS 08/07/21 Blood Culture - Final, Complete NO GROWTH AFTER 5 DAYS Ashlyn Gardiner MD Aug 16, 2021 07:34
== END 2021-08-15 13:40 | disposition home health service (06) | DRG 300 ==
LOC: M ED 21:37 → M ED INP 08-08 05:54 → ENRESERV 08-08 14:00 → M MSPAV 08-08 15:05 → M PCU 08-09 21:13
PROVIDERS: ADMIT Family Medicine; ATTEND Internal Medicine
DX: I87.312 Chronic venous hypertension (idiopathic) with ulcer of left lower extremity (principal); L03.116 Cellulitis of left lower limb; N39.0 Urinary tract infection, site not specified; I48.20 Chronic atrial fibrillation, unspecified; D64.9 Anemia, unspecified; E11.9 Type 2 diabetes mellitus without complications; K74.60 Unspecified cirrhosis of liver; Z79.899 Other long term (current) drug therapy; Z88.0 Allergy status to penicillin; Z88.8 Allergy status to other drugs, medicaments and biological substances; F17.210 Nicotine dependence, cigarettes, uncomplicated

== ENCOUNTER 2021-11-13 16:46 | Observation (INO) | payer MEDICARE, MEDICAID ==
[~2021-11-13] VITALS: Ht 172.7 cm; Wt 55.2 kg
[~2021-11-13 16:46] MED LIST changes: +AMIO200T49 PO; +CEFD300CAP PO; +DOXY100T PO; +RISATAB3 PO
[2021-11-13] MEDS ORDERED: NS 1,000 ML IV ONE (19:00)
[2021-11-13] MEDS ORDERED: ACETAMINOPHEN 325 MG TAB PO ONE (19:20)
[2021-11-13 19:23] LABS: BASO % 0.2 % (0.0-1.0); EOS % 0.1 % (0.0-3.0); HEMATOCRIT 32.6 % (36.0-47.0); HEMOGLOBIN 10.7 g/dl (12.0-15.5); LYMPH # 0.5 10^3/uL (1.5-5.0); LYMPH % 5.3 % (24.0-44.0); MEAN CORPUSCULAR HEMOGLOBIN 28.1 pg (27.0-33.0); MEAN CORPUSCULAR HGB CONC 32.8 g/dl (32.0-36.5); MEAN CORPUSCULAR VOLUME 85.6 fl (80.0-96.0); MONO # 0.5 10^3/uL (0.0-0.8); NEUTROPHILS # 8.8 10^3/uL (1.5-8.5); NEUTROPHILS % 88.2 % (36.0-66.0); PLATELET COUNT, AUTOMATED 128 10^3/uL (150-450); RED BLOOD COUNT 3.81 10^6/uL (4.00-5.40)
[2021-11-13 19:53] LABS: ALT/SGPT 27 U/L (12-78); BILIRUBIN,TOTAL 1.1 MG/DL (0.2-1.0); BLOOD UREA NITROGEN 19 MG/DL (7-18); CALCIUM LEVEL 8.9 MG/DL (8.8-10.2); CARBON DIOXIDE LEVEL 28 MEQ/L (21-32); CHLORIDE LEVEL 103 MEQ/L (98-107); CREATININE FOR GFR 0.88 MG/DL (0.55-1.30); GLOMERULAR FILTRATION RATE > 60.0 (>39); GLUCOSE, FASTING 275 MG/DL (70-100); MAGNESIUM LEVEL 1.3 MG/DL (1.8-2.4); SODIUM LEVEL 136 MEQ/L (136-145); TOTAL PROTEIN 7.6 GM/DL (6.4-8.2)
[2021-11-13 19:53] LABS: CK-MB VALUE MASS 4.6 NG/ML (<3.6); MB/CK RELATIVE INDEX 1.6 (< OR =4)
[2021-11-13] MEDS ORDERED: LIDOCAINE 2% 5ML JELLY UROJET TOP ONE (20:25)
[2021-11-13 20:55] LABS: CK-MB VALUE MASS 5.2 NG/ML (<3.6); MB/CK RELATIVE INDEX 1.22 (< OR =4)
[2021-11-13 22:17] LABS: NT-PRO BNP 792 PG/ML (<450)
[2021-11-13 22:38] LABS: AMPHETAMINES LEVEL URINE NEGATIVE (NEGATIVE); BARBITURATES URINE NEGATIVE (NEGATIVE); BENZODIAZEPINES URINE NEGATIVE (NEGATIVE); CANNABINOIDS URINE NEGATIVE (NEGATIVE); COCAINE METABOLITE URINE NEGATIVE (NEGATIVE); METHADONE URINE NEGATIVE (NEGATIVE); OPIATES URINE NEGATIVE (NEGATIVE); PHENCYCLIDINE URINE NEGATIVE (NEGATIVE)
[2021-11-13 23:01] LABS: CK-MB VALUE MASS 6.2 NG/ML (<3.6); MB/CK RELATIVE INDEX 1.17 (< OR =4)
[2021-11-13] MEDS ORDERED: cefTRIAXone SOD 1 GM in D5W MINI-BAG PLUS 50 ML IV ONE (23:15)
[2021-11-14] MEDS ORDERED: DEXTROSE 50% 50 ML SYRINGE IV PRN (00:15)
[2021-11-14] MEDS ORDERED: NS 1,000 ML IV SCH (00:15)
[2021-11-14] MEDS ORDERED: GLUCAGON INJ 1MG VIAL SC PRN (00:15)
[2021-11-14] MEDS ORDERED: GLUCOSE 4GM CHEW TABLET PO PRN (00:15)
[2021-11-14] MEDS ORDERED: METO1TAB87 PO (02:26)
[2021-11-14] MEDS ORDERED: GABA-1171 PO (02:26)
[2021-11-14] MEDS ORDERED: B-650TAB2 PO (02:26)
[2021-11-14] MEDS: MAG SULF 1GM/100ML (MAG RUN) 1 GM in IV 1 EA IV SCH ×2 (02:30→03:00)
[2021-11-14] MEDS ORDERED: HOME MED LIST COMPLETE! XX SCH (02:30)
[2021-11-14] MEDS: ACETAMINOPHEN TAB 650MG DOSE (2X325MG) PO PRN (06:27)
[2021-11-14] MEDS ORDERED: ACETAMINOPHEN TAB 650MG DOSE (2X325MG) PO ONE (07:05)
[2021-11-14 07:35] LABS: BASO % 0.3 % (0.0-1.0); HEMATOCRIT 28.9 % (36.0-47.0); HEMOGLOBIN 9.5 g/dl (12.0-15.5); LYMPH # 0.7 10^3/uL (1.5-5.0); MEAN CORPUSCULAR HEMOGLOBIN 27.5 pg (27.0-33.0); MEAN CORPUSCULAR HGB CONC 32.9 g/dl (32.0-36.5); MEAN CORPUSCULAR VOLUME 83.5 fl (80.0-96.0); MONO # 0.4 10^3/uL (0.0-0.8); MONO % 6.4 % (2.0-8.0); NEUTROPHILS # 5.6 10^3/uL (1.5-8.5); NEUTROPHILS % 82.4 % (36.0-66.0); PLATELET COUNT, AUTOMATED 103 10^3/uL (150-450); RED BLOOD COUNT 3.46 10^6/uL (4.00-5.40); WHITE BLOOD COUNT 6.8 10^3/uL (4.0-10.0)
[2021-11-14 08:05] LABS: BLOOD UREA NITROGEN 14 MG/DL (7-18); CALCIUM LEVEL 8.1 MG/DL (8.8-10.2); CARBON DIOXIDE LEVEL 26 MEQ/L (21-32); CHLORIDE LEVEL 106 MEQ/L (98-107); CREATININE FOR GFR 0.67 MG/DL (0.55-1.30); GLOMERULAR FILTRATION RATE > 60.0 (>39); GLUCOSE, FASTING 211 MG/DL (70-100); POTASSIUM SERUM 3.3 MEQ/L (3.5-5.1); SODIUM LEVEL 137 MEQ/L (136-145)
[2021-11-14] MEDS: cefTRIAXone SOD 1 GM in D5W MINI-BAG PLUS 50 ML IV SCH (08:26)
[2021-11-14] MEDS: APIXABAN 5 MG TAB (ELIQUIS) PO SCH ×2 (08:27→21:25)
[2021-11-14] MEDS: DOCUSATE SODIUM 100MG CAPSULE PO SCH (08:27)
[2021-11-14] MEDS: OMEPRAZOLE 20MG CAP PO SCH (08:27)
[2021-11-14] MEDS: FERROUS SULFATE 325MG TAB PO SCH (08:27)
[2021-11-14] MEDS: busPIRone 5 MG TAB PO SCH ×2 (08:27→21:25)
[2021-11-14] MEDS: HumaLOG INSULIN (NovoLOG) PER UNIT SC SCH ×4 (08:27→20:09)
[2021-11-14] MEDS: METOPROLOL TART 12.5 MG PER 1/2 TAB PO SCH ×2 (09:00→21:26)
[2021-11-14] MEDS ORDERED: VANCOMYCIN HCL 1,000 MG, VIAL MATE ADAPTER 1 EACH in NS 250 ML IV ONE (10:00)
[2021-11-14] MEDS: PYRIDOXINE 50 MG TAB PO SCH (10:48)
[2021-11-14] MEDS: VANCOMYCIN HCL 750 MG, VIAL MATE ADAPTER 1 EACH in NS 250 ML IV SCH (13:45)
[2021-11-14 14:00] VITALS: BP 122/70
[2021-11-14 16:15] VITALS: BP 110/56
[2021-11-14 22:00] VITALS: BP 109/56
[2021-11-15] MEDS: GABAPENTIN 100 MG CAP PO PRN (02:39)
[2021-11-15] MEDS: ACETAMINOPHEN TAB 650MG DOSE (2X325MG) PO PRN ×2 (02:40→18:27)
[2021-11-15] MEDS: VANCOMYCIN HCL 750 MG, VIAL MATE ADAPTER 1 EACH in NS 250 ML IV SCH ×2 (02:41→14:44)
[2021-11-15 06:00] VITALS: BP 106/54
[2021-11-15 06:21] LABS: HEMOGLOBIN 9.1 g/dl (12.0-15.5); MEAN CORPUSCULAR HEMOGLOBIN 28.1 pg (27.0-33.0); MEAN CORPUSCULAR HGB CONC 33.7 g/dl (32.0-36.5); MEAN CORPUSCULAR VOLUME 83.3 fl (80.0-96.0); PLATELET COUNT, AUTOMATED 103 10^3/uL (150-450); RED BLOOD COUNT 3.24 10^6/uL (4.00-5.40); WHITE BLOOD COUNT 3.5 10^3/uL (4.0-10.0)
[2021-11-15 07:03] LABS: BLOOD UREA NITROGEN 13 MG/DL (7-18); CALCIUM LEVEL 7.7 MG/DL (8.8-10.2); CARBON DIOXIDE LEVEL 24 MEQ/L (21-32); CHLORIDE LEVEL 108 MEQ/L (98-107); CREATININE FOR GFR 0.55 MG/DL (0.55-1.30); GLOMERULAR FILTRATION RATE > 60.0 (>39); GLUCOSE, FASTING 125 MG/DL (70-100); MAGNESIUM LEVEL 1.4 MG/DL (1.8-2.4); POTASSIUM SERUM 2.9 MEQ/L (3.5-5.1); SODIUM LEVEL 141 MEQ/L (136-145)
[2021-11-15 07:11] LABS: ATYPICAL LYMPH 2 % (0-5); BASOPHILS 4 % (0-1); EOSINOPHILS 5 % (0-3); LYMPHOCYTES 32 % (16-44); MONOCYTES 4 % (0-5); NEUTROPHILS 53 % (28-66)
[2021-11-15 07:17] LABS: PLATELET ESTIMATE NORMAL (NORMAL)
[2021-11-15] MEDS: HumaLOG INSULIN (NovoLOG) PER UNIT SC SCH ×4 (08:00→21:00)
[2021-11-15] MEDS: POTASSIUM CHLORIDE 10MEQ SR TABLET PO SCH ×2 (08:15→08:41)
[2021-11-15] MEDS: MAG SULF 1GM/100ML (MAG RUN) 1 GM in IV 1 EA IV SCH ×2 (08:18→08:42)
[2021-11-15] MEDS: cefTRIAXone SOD 1 GM in D5W MINI-BAG PLUS 50 ML IV SCH (09:00)
[2021-11-15] MEDS: busPIRone 5 MG TAB PO SCH ×2 (09:00→21:10)
[2021-11-15] MEDS: FERROUS SULFATE 325MG TAB PO SCH (09:23)
[2021-11-15] MEDS: PYRIDOXINE 50 MG TAB PO SCH (09:23)
[2021-11-15] MEDS: DOCUSATE SODIUM 100MG CAPSULE PO SCH (09:23)
[2021-11-15] MEDS: OMEPRAZOLE 20MG CAP PO SCH (09:23)
[2021-11-15] MEDS: METOPROLOL TART 12.5 MG PER 1/2 TAB PO SCH ×2 (09:23→21:00)
[2021-11-15] MEDS: APIXABAN 5 MG TAB (ELIQUIS) PO SCH ×2 (09:23→21:10)
[2021-11-15 14:00] VITALS: BP 116/54
[2021-11-15 17:12] LABS: MAGNESIUM LEVEL 2.4 MG/DL (1.8-2.4); POTASSIUM SERUM 4.6 MEQ/L (3.5-5.1)
[2021-11-15 22:00] VITALS: BP 107/67
[2021-11-16] MEDS: GABAPENTIN 100 MG CAP PO PRN (01:30)
[2021-11-16] MEDS: ACETAMINOPHEN TAB 650MG DOSE (2X325MG) PO PRN (01:30)
[2021-11-16] MEDS: VANCOMYCIN HCL 750 MG, VIAL MATE ADAPTER 1 EACH in NS 250 ML IV SCH (01:31)
[2021-11-16 06:00] VITALS: BP 119/55
[2021-11-16 09:00] VITALS: BP 112/63
[2021-11-16] MEDS: METOPROLOL TART 12.5 MG PER 1/2 TAB PO SCH (09:00)
[2021-11-16] MEDS: HumaLOG INSULIN (NovoLOG) PER UNIT SC SCH ×2 (09:52→12:26)
[2021-11-16] MEDS: OMEPRAZOLE 20MG CAP PO SCH (09:53)
[2021-11-16] MEDS: DOCUSATE SODIUM 100MG CAPSULE PO SCH (09:53)
[2021-11-16] MEDS: APIXABAN 5 MG TAB (ELIQUIS) PO SCH (09:54)
[2021-11-16] MEDS: PYRIDOXINE 50 MG TAB PO SCH (09:54)
[2021-11-16] MEDS: FERROUS SULFATE 325MG TAB PO SCH (09:54)
[2021-11-16] MEDS: cefTRIAXone SOD 1 GM in D5W MINI-BAG PLUS 50 ML IV SCH (09:55)
[2021-11-16] MEDS: busPIRone 5 MG TAB PO SCH (10:05)
[2021-11-16] MEDS ORDERED: BACITAB PO (11:03)
[2021-11-16] MEDS ORDERED: CLIN150C17 PO (11:03)
[2021-11-16] MEDS ORDERED: DOXY-350 PO (12:28)
[2021-11-16] MEDS ORDERED: BACT800T5 PO (12:28)
[2021-11-16] MEDS ORDERED: ERYT-52 PO (12:31)
== END 2021-11-16 15:49 | disposition home or self-care (01) ==
LOC: M ED 16:46 → M ED INP 16:47 → ENRESERV 11-14 14:30 → M MSPAV 11-14 16:46
PROVIDERS: ADMIT Family Medicine; ATTEND General Practice
DX: N39.0 Urinary tract infection, site not specified (principal); I87.312 Chronic venous hypertension (idiopathic) with ulcer of left lower extremity; L97.921 Non-pressure chronic ulcer of unspecified part of left lower leg limited to breakdown of skin; R78.81 Bacteremia; L89.322 Pressure ulcer of left buttock, stage 2; I85.00 Esophageal varices without bleeding; I50.32 Chronic diastolic (congestive) heart failure; E11.40 Type 2 diabetes mellitus with diabetic neuropathy, unspecified; I73.9 Peripheral vascular disease, unspecified; F41.9 Anxiety disorder, unspecified; F32.9 Major depressive disorder, single episode, unspecified; K44.9 Diaphragmatic hernia without obstruction or gangrene; D64.9 Anemia, unspecified; R54 Age-related physical debility; M62.59 Muscle wasting and atrophy, not elsewhere classified, multiple sites; Z79.01 Long term (current) use of anticoagulants; Z88.0 Allergy status to penicillin; Z88.1 Allergy status to other antibiotic agents; K21.9 Gastro-esophageal reflux disease without esophagitis; I11.0 Hypertensive heart disease with heart failure; Z79.899 Other long term (current) drug therapy
CPT/HCPCS: 11042; 11045; 36415; 51701; 71045; 80048; 80053; 80202; 80307; 81001; 82140; 82550; 82553; 83605; 83735; 83880; 84132; 84145; 84484; 85025; 85652; 86140; 87040; 87070; 87077; 87088; 87186; 87205; 87641; 87798; 93005; 93041; 94760; 96365; 96366; 96367; 96375; 97161; 97165; 97535; 99285; G0378; J0696; J1815; J3370; J3475

== ENCOUNTER → 2022-03-16 | Outpatient (REF) | payer MEDICARE, MEDICAID ==
[~2022-03-16] MED LIST changes: +B-650TAB2 PO; +DOXY-350 PO; +ERYT-88 PO; +GABA-1171 PO
[2022-03-16 17:39] LABS: HEMOGLOBIN A1c 7.1 %
== END ==
LOC: M SFHCWOUN 15:29
PROVIDERS: ATTEND Surgery
DX: I87.312 Chronic venous hypertension (idiopathic) with ulcer of left lower extremity (principal); Z79.899 Other long term (current) drug therapy

== ENCOUNTER → 2022-10-16 | Outpatient (REF) | payer MEDICARE, MEDICAID ==
[~2022-10-16] MED LIST changes: +DIPH-435 PO; -DIPH25CA32 PO; -DOXY-350 PO; +DOXY-444 PO
[2022-10-16 15:48] LABS: BASO % 0.7 % (0.0-1.0); EOS # 0.2 10^3/uL (0.0-0.5); EOS % 5.5 % (0.0-3.0); HEMATOCRIT 30.3 % (36.0-47.0); HEMOGLOBIN 9.9 g/dl (12.0-15.5); LYMPH # 1.2 10^3/uL (1.5-5.0); LYMPH % 42.2 % (24.0-44.0); MEAN CORPUSCULAR HEMOGLOBIN 28.6 pg (27.0-33.0); MEAN CORPUSCULAR HGB CONC 32.7 g/dl (32.0-36.5); MEAN CORPUSCULAR VOLUME 87.6 fl (80.0-96.0); MONO # 0.3 10^3/uL (0.0-0.8); MONO % 11.3 % (2.0-8.0); NEUTROPHILS # 1.1 10^3/uL (1.5-8.5); NEUTROPHILS % 39.9 % (36.0-66.0); RED BLOOD COUNT 3.46 10^6/uL (4.00-5.40); WHITE BLOOD COUNT 2.8 10^3/uL (4.0-10.0)
[2022-10-16 16:03] LABS: PLATELET COUNT, AUTOMATED 94 10^3/uL (150-450)
[2022-10-16 16:06] LABS: C REACTIVE PROTEIN QUANTITATIV < 0.40 MG/DL (<1.0)
[2022-10-16 16:07] LABS: ALBUMIN 3.3 G/DL (3.2-5.2); ALKALINE PHOSPHATASE 55 U/L (46-116); ALT/SGPT 10 U/L (7.0-40); AST/SGOT < 8 U/L (<34); BILIRUBIN,TOTAL 0.4 MG/DL (0.3-1.2); BLOOD UREA NITROGEN 15 MG/DL (9-23); CARBON DIOXIDE LEVEL 27 MMOL/L (20-31); CHLORIDE LEVEL 106 MMOL/L (98-107); CREATININE FOR GFR 0.78 MG/DL (0.55-1.30); GLOMERULAR FILTRATION RATE > 60.0 (>39); GLUCOSE, FASTING 188 MG/DL (74-106); PREALBUMIN 12.9 MG/DL (10.0-40.0); SODIUM LEVEL 140 MMOL/L (136-145); TOTAL PROTEIN 7.2 G/DL (5.7-8.2)
[2022-10-16 16:26] LABS: ERYTHROCYTE SEDIMENTATION RATE 59 mm/hr (0-30)
== END ==
LOC: M LAB REF 14:20
PROVIDERS: ATTEND Surgery
DX: I87.312 Chronic venous hypertension (idiopathic) with ulcer of left lower extremity (principal); S81.802A Unspecified open wound, left lower leg, initial encounter; S81.802S Unspecified open wound, left lower leg, sequela; E11.622 Type 2 diabetes mellitus with other skin ulcer; E11.59 Type 2 diabetes mellitus with other circulatory complications; E11.40 Type 2 diabetes mellitus with diabetic neuropathy, unspecified; I73.9 Peripheral vascular disease, unspecified; H25.9 Unspecified age-related cataract; I48.91 Unspecified atrial fibrillation; I10 Essential (primary) hypertension; Z87.891 Personal history of nicotine dependence; Z71.6 Tobacco abuse counseling

== ENCOUNTER → 2022-10-26 | Outpatient (CLI) | payer MEDICARE | LOC: M PLAIMG 09:51 | PROVIDERS: ATTEND Surgery | DX: S81.802S Unspecified open wound, left lower leg, sequela (principal); I87.312 Chronic venous hypertension (idiopathic) with ulcer of left lower extremity; E11.622 Type 2 diabetes mellitus with other skin ulcer; E11.59 Type 2 diabetes mellitus with other circulatory complications; E11.40 Type 2 diabetes mellitus with diabetic neuropathy, unspecified; I73.9 Peripheral vascular disease, unspecified; H25.9 Unspecified age-related cataract; I48.91 Unspecified atrial fibrillation; I10 Essential (primary) hypertension; Z87.891 Personal history of nicotine dependence; Z71.6 Tobacco abuse counseling ==

== ENCOUNTER → 2023-08-19 | Outpatient (REF) | payer MEDICARE ==
[~2023-08-19] MED LIST changes: +ACET650T61 PO; +GENT1OI; +OPTI0.5D2 OD; +THERTAB52 PO; +TRIA1OI
== END ==
LOC: M LAB REF 11:17
PROVIDERS: ATTEND Nurse Practitioner Family
DX: R30.0 Dysuria (principal)

== ENCOUNTER 2024-09-03 12:48 | Inpatient (IN) | payer MEDICARE ==
[~2024-09-03] VITALS: Ht 172.7 cm; Wt 53.3 kg
[~2024-09-03 12:48] MED LIST changes: +DOXY-440 PO; -DOXY-444 PO
[2024-09-03 14:14] LABS: BASO % 0.4 % (0.0-1.0); EOS # 0.1 10^3/uL (0.0-0.5); EOS % 3.9 % (0.0-3.0); HEMATOCRIT 31.8 % (36.0-47.0); HEMOGLOBIN 10.3 g/dl (12.0-15.5); LYMPH # 0.7 10^3/uL (1.5-5.0); LYMPH % 31.2 % (24.0-44.0); MEAN CORPUSCULAR HEMOGLOBIN 27.5 pg (27.0-33.0); MEAN CORPUSCULAR HGB CONC 32.4 g/dl (32.0-36.5); MONO # 0.3 10^3/uL (0.0-0.8); MONO % 10.8 % (2.0-8.0); NEUTROPHILS # 1.2 10^3/uL (1.5-8.5); NEUTROPHILS % 53.3 % (36.0-66.0); RED BLOOD COUNT 3.74 10^6/uL (4.00-5.40); WHITE BLOOD COUNT 2.3 10^3/uL (4.0-10.0)
[2024-09-03 14:36] LABS: BLOOD UREA NITROGEN 24 MG/DL (9-23); CALCIUM LEVEL 10.2 MG/DL (8.3-10.6); CARBON DIOXIDE LEVEL 30 MMOL/L (20-31); CHLORIDE LEVEL 104 MMOL/L (98-107); GLOMERULAR FILTRATION RATE > 60.0 (>32); GLUCOSE, FASTING 168 MG/DL (74-106); POTASSIUM SERUM 3.8 MMOL/L (3.5-5.1); SODIUM LEVEL 143 MMOL/L (136-145)
[2024-09-03 14:39] LABS: THYROID STIMULATING HORMONE 2.062 uIU/ML (0.55-4.78)
[2024-09-03 15:10] LABS: PLATELET COUNT, AUTOMATED 98 10^3/uL (150-450)
[2024-09-03] MEDS ORDERED: ISOVUE-370 76% 100ML VIAL As Ordered ONE (17:05)
[2024-09-03 17:14] LABS: APPEARANCE, URINE HAZY (CLEAR); BACTERIA, URINE AUTO 1+ (NEGATIVE); BILIRUBIN, URINE AUTO NEGATIVE (NEGATIVE); BLOOD, URINE BLOOD NEGATIVE (NEGATIVE); COLOR, URINE YELLOW (YELLOW); GLUCOSE, URINE (UA) AUTO 2+ mg/dL (NEGATIVE); KETONE, URINE AUTO NEGATIVE (NEGATIVE); LEUKOCYTE ESTERASE, URINE AUTO TRACE (NEGATIVE); MUCUS, URINE SMALL (NEGATIVE); NITRITE, URINE AUTO NEGATIVE (NEGATIVE); PROTEIN, URINE AUTO 2+ mg/dL (NEGATIVE); RBC, URINE AUTO 4 /HPF (0-3); SPECIFIC GRAVITY URINE AUTO 1.024 (1.002-1.035); SQUAMOUS EPITHELIAL CELL UR AU 1 /HPF (0-6); UROBILINOGEN, URINE AUTO 0.2 mg/dL (0.0-2.0); WBC, URINE AUTO 18 /HPF (0-3)
[2024-09-03 17:25] LABS: CK-MB VALUE MASS < 1.0 NG/ML (<3.6); MAGNESIUM LEVEL 1.5 MG/DL (1.8-2.4)
[2024-09-03 17:27] LABS: CPK CREATINE PHOSPHOKINASE 62 U/L (34-145); MB/CK RELATIVE INDEX 1.61 (< OR =4)
[2024-09-03 18:19] LABS: CK-MB VALUE MASS 1.1 NG/ML (<3.6)
[2024-09-03 18:25] LABS: MB/CK RELATIVE INDEX 1.35 (< OR =4)
[2024-09-03] MEDS: NS 500 ML IV ONE (18:27)
[2024-09-03] MEDS: ONDANSETRON 4MG 2ML VIAL IV ONE (18:28)
[2024-09-03] MEDS: MAG SULF 1GM/100ML (MAG RUN) 1 GM in IV 1 EA IV ONE (18:28)
[2024-09-03] MEDS ORDERED: DOCU100C16 PO (20:35)
[2024-09-03] MEDS ORDERED: ELIQ2.5T PO (20:35)
[2024-09-03] MEDS ORDERED: HOME MED LIST COMPLETE! XX SCH (20:40)
[2024-09-03] MEDS: MAALOX 30 ML SUSP *UDC PO ONE (20:44)
[2024-09-03] MEDS ORDERED: MOM 30ML SUSPENSION UDC PO PRN (21:40)
[2024-09-03] MEDS ORDERED: GLUCOSE 4 GM CHEW PO PRN (21:40)
[2024-09-03] MEDS ORDERED: DEXTROSE 50% 50ML SYRINGE IV PRN (21:40)
[2024-09-03] MEDS ORDERED: GLUCAGON INJ 1MG VIAL SC PRN (21:40)
[2024-09-03] MEDS ORDERED: ACETAMINOPHEN 325 MG TAB PO PRN (21:40)
[2024-09-03 22:21] LABS: ALBUMIN 3.5 G/DL (3.2-5.2); ALKALINE PHOSPHATASE 50 U/L (35-104); ALT/SGPT 11 U/L (7.0-40); AST/SGOT 17 U/L (<34); BILIRUBIN,DIRECT 0.1 MG/DL (<0.4); BILIRUBIN,TOTAL 0.4 MG/DL (0.3-1.2); TOTAL PROTEIN 7.2 G/DL (5.7-8.2)
[2024-09-03] MEDS: INSULIN LISPRO (NovoLOG) PER UNIT SC SCH (22:23)
[2024-09-03 22:38] LABS: HEMOGLOBIN A1c 6.4 % (4.0-6.0)
[2024-09-03 23:11] LABS: INR 1.1; PARTIAL THROMBOPLASTIN TIME 24.1 SECONDS (24.8-34.2); PROTHROMBIN TIME 14.6 SECONDS (12.5-14.5)
[2024-09-03] MEDS: MAGNESIUM OXIDE 400MG TAB (MAG-OX) PO SCH (23:11)
[2024-09-04 00:23] VITALS: BP 128/63; TEMP 97.5; O2SAT 94
[2024-09-04 01:01] VITALS: O2SAT 94
[2024-09-04] MEDS ORDERED: busPIRone 5 MG TAB PO PRN (03:40)
[2024-09-04 04:00] VITALS: BP 123/57; TEMP 97.3; O2SAT 95
[2024-09-04] MEDS: MAALOX 30 ML SUSP *UDC PO PRN (05:53)
[2024-09-04 06:32] LABS: HEMATOCRIT 31.3 % (36.0-47.0); MEAN CORPUSCULAR HEMOGLOBIN 27.8 pg (27.0-33.0); MEAN CORPUSCULAR HGB CONC 31.9 g/dl (32.0-36.5); MEAN CORPUSCULAR VOLUME 86.9 fl (80.0-96.0); WHITE BLOOD COUNT 3.4 10^3/uL (4.0-10.0)
[2024-09-04 06:34] LABS: ALBUMIN 3.4 G/DL (3.2-5.2); ALKALINE PHOSPHATASE 50 U/L (35-104); ALT/SGPT 14 U/L (7.0-40); AST/SGOT 22 U/L (<34); BILIRUBIN,TOTAL 0.5 MG/DL (0.3-1.2); BLOOD UREA NITROGEN 15 MG/DL (9-23); CALCIUM LEVEL 9.2 MG/DL (8.3-10.6); CARBON DIOXIDE LEVEL 27 MMOL/L (20-31); CHLORIDE LEVEL 107 MMOL/L (98-107); CREATININE FOR GFR 0.66 MG/DL (0.55-1.30); GLOMERULAR FILTRATION RATE > 60.0 (>32); GLUCOSE, FASTING 137 MG/DL (74-106); SODIUM LEVEL 141 MMOL/L (136-145); TOTAL PROTEIN 6.9 G/DL (5.7-8.2)
[2024-09-04 06:35] LABS: PLATELET COUNT, AUTOMATED 86 10^3/uL (150-450)
[2024-09-04 08:00] VITALS: BP 145/71; TEMP 97.7; O2SAT 97
[2024-09-04] MEDS: APIXABAN 2.5 MG TAB (ELIQUIS) PO SCH (08:31)
[2024-09-04] MEDS: INSULIN LISPRO (NovoLOG) PER UNIT SC SCH (08:31)
[2024-09-04] MEDS: OMEPRAZOLE 20MG CAP PO SCH (08:31)
[2024-09-04] MEDS: FERROUS SULFATE 325MG TAB PO SCH (08:32)
[2024-09-04] MEDS: DOCUSATE SODIUM 100MG CAPSULE PO SCH (08:32)
[2024-09-04] MEDS: POTASSIUM CHLORIDE 10MEQ SR TABLET PO SCH (08:32)
[2024-09-04 12:00] VITALS: BP 138/70; TEMP 97.2; O2SAT 97
[2024-09-04] MEDS: BOOSTRIX VACCINE (TETANUS/DIPHTH/ACEL. PERTUSSIS) 0.5ML SYR IM ONE (12:02)
[2024-09-04] MEDS ORDERED: CALCIUM CARBONATE 500 MG CHEW U/D PO PRN (12:45)
[2024-09-04] MEDS: SUCRALFATE SUSP 1GM/10ML UD PO SCH (12:55)
[2024-09-04] MEDS ORDERED: MUPI30CR TOP (14:36)
[2024-09-04] MEDS ORDERED: CARA1TAB6 PO (14:39)
== END 2024-09-04 15:02 | disposition home health service (06) | DRG 312 ==
LOC: M ED 12:48 → EDBD 12:48 → M ED INP 22:08 → M MSPAV 09-04 00:23
PROVIDERS: ADMIT Student in an Organized Health Care Education/Training Program; ATTEND Internal Medicine
DX: R55 Syncope and collapse (principal); D61.818 Other pancytopenia; I25.10 Atherosclerotic heart disease of native coronary artery without angina pectoris; E11.40 Type 2 diabetes mellitus with diabetic neuropathy, unspecified; K21.9 Gastro-esophageal reflux disease without esophagitis; I50.9 Heart failure, unspecified; E83.42 Hypomagnesemia; I48.0 Paroxysmal atrial fibrillation; E11.51 Type 2 diabetes mellitus with diabetic peripheral angiopathy without gangrene; F41.9 Anxiety disorder, unspecified; D50.9 Iron deficiency anemia, unspecified; Z88.0 Allergy status to penicillin; Z88.8 Allergy status to other drugs, medicaments and biological substances; Z79.899 Other long term (current) drug therapy; Z79.01 Long term (current) use of anticoagulants; I87.8 Other specified disorders of veins; Z88.2 Allergy status to sulfonamides; K70.30 Alcoholic cirrhosis of liver without ascites; F32.A Depression, unspecified; K44.9 Diaphragmatic hernia without obstruction or gangrene; M19.90 Unspecified osteoarthritis, unspecified site; M81.0 Age-related osteoporosis without current pathological fracture; R91.1 Solitary pulmonary nodule; Z98.42 Cataract extraction status, left eye

== ENCOUNTER → 2025-03-29 | Outpatient (REF) | payer MEDICARE ==
[~2025-03-29] MED LIST changes: -AMIO200T49 PO; +AMIO200T54 PO; +DOCU100C16 PO; +ELIQ2.5T PO; +MUPI30CR TOP
[2025-03-29 19:14] LABS: BASO # 0.0 10^3/uL (0.0-0.2); BASO % 1.2 % (0.0-1.0); EOS # 0.1 10^3/uL (0.0-0.5); EOS % 5.7 % (0.0-3.0); LYMPH # 1.0 10^3/uL (1.5-5.0); LYMPH % 40.8 % (24.0-44.0); MONO # 0.3 10^3/uL (0.0-0.8); MONO % 10.6 % (2.0-8.0); NEUTROPHILS # 1.0 10^3/uL (1.5-8.5); NEUTROPHILS % 41.7 % (36.0-66.0); PLATELET COUNT, AUTOMATED 121 10^3/uL (150-450)
[2025-03-29 19:28] LABS: ALT/SGPT 11.0 U/L (7.0-40); AST/SGOT 19.0 U/L (<34); CALCIUM LEVEL 8.7 MG/DL (8.3-10.6); CARBON DIOXIDE LEVEL 30.0 MMOL/L (20-31); CHLORIDE LEVEL 100.0 MMOL/L (98-107); CREATININE FOR GFR 0.92 MG/DL (0.55-1.30); GLOMERULAR FILTRATION RATE 62.9 (>32); MAGNESIUM LEVEL 1.4 MG/DL (1.8-2.4); POTASSIUM SERUM 4.3 MMOL/L (3.5-5.1); SODIUM LEVEL 140.0 MMOL/L (136-145)
== END ==
LOC: M LAB REF 18:11
PROVIDERS: ATTEND Physician Assistant
DX: E83.42 Hypomagnesemia (principal); D61.818 Other pancytopenia

== ENCOUNTER → 2025-03-31 | Outpatient (POV) | payer MEDICARE | LOC: M IRPOV 14:13 | PROVIDERS: ATTEND Radiology Diagnostic Radiology | DX: E11.51 Type 2 diabetes mellitus with diabetic peripheral angiopathy without gangrene (principal); I70.235 Atherosclerosis of native arteries of right leg with ulceration of other part of foot; I48.91 Unspecified atrial fibrillation; L97.519 Non-pressure chronic ulcer of other part of right foot with unspecified severity; Z72.0 Tobacco use; Z79.01 Long term (current) use of anticoagulants; Z85.828 Personal history of other malignant neoplasm of skin; Z87.81 Personal history of (healed) traumatic fracture; Z90.49 Acquired absence of other specified parts of digestive tract ==

== ENCOUNTER → 2025-04-23 | Outpatient (CLI) | payer MEDICARE ==
[~2025-04-23] MED LIST changes: +NS (Normal Saline) 0.9% 1,000 ML IV SCH; +ONDANSETRON 4MG 2ML VIAL IV PRN; +PERCOCET 5MG/325MG TAB PO PRN
[2025-04-23 12:35] VITALS: TEMP 97.4
[2025-04-23 13:15] LABS: PLATELET COUNT, AUTOMATED 122 10^3/uL (150-450)
[2025-04-23 13:22] LABS: INR 1.06
[2025-04-23 14:00] LABS: CALCIUM LEVEL 9.4 MG/DL (8.3-10.6); CARBON DIOXIDE LEVEL 28.0 MMOL/L (20-31); CHLORIDE LEVEL 101.0 MMOL/L (98-107); CREATININE FOR GFR 0.8 MG/DL (0.55-1.30); GLOMERULAR FILTRATION RATE 74.4 (>32); POTASSIUM SERUM 5.3 MMOL/L (3.5-5.1); SODIUM LEVEL 139.0 MMOL/L (136-145)
[2025-04-23] MEDS: MIDAZOLAM INJ 2 MG/2 ML VIAL IV PRN (15:20)
[2025-04-23] MEDS: NS (Normal Saline) 0.9% 1,000 ML IV SCH (15:26)
[2025-04-23] MEDS: HEPARIN 1,000 UNITS/ML 10 ML VIAL (FOR RADIOLOGY & DIALYSIS ONLY) IV PRN (16:20)
[2025-04-23] MEDS: LIDOCAINE 1% MDV 20 ML VIAL SC SCH (16:32)
[2025-04-23] MEDS: ISOVUE-300 61% 100 ML VIAL IV SCH (16:32)
[2025-04-23] MEDS: PROTAMINE SULF 50MG 5ML VIAL IV STA (19:13)
[2025-04-23] MEDS: ACETAMINOPHEN 325 MG TAB PO PRN (19:44)
[2025-04-23 19:45] VITALS: BP 136/69; O2SAT 98
== END ==
LOC: M IRPRO 12:17
PROVIDERS: ATTEND Radiology Diagnostic Radiology
DX: I70.201 Unspecified atherosclerosis of native arteries of extremities, right leg (principal); R09.89 Other specified symptoms and signs involving the circulatory and respiratory systems
CPT/HCPCS: 37228; 80048; 85027; 85610; 93975; 99152; 99153; C1725; C1729; C1760; C1769; C1887; J2250; J2720; J3010; Q9967

== ENCOUNTER → 2025-06-23 | Outpatient (POV) | payer MEDICARE ==
[~2025-06-23] VITALS: Ht 172.7 cm; Wt 53.6 kg
[~2025-06-23] MED LIST changes: +ATOR1TAB19 PO; +ECOT81TA5 PO; -NS (Normal Saline) 0.9% 1,000 ML IV SCH; -ONDANSETRON 4MG 2ML VIAL IV PRN; -PERCOCET 5MG/325MG TAB PO PRN
[2025-06-23 13:27] VITALS: BP 130/59; O2SAT 96
== END ==
LOC: M IRPOV 12:52
PROVIDERS: ATTEND Registered Nurse School
DX: Z48.812 Encounter for surgical aftercare following surgery on the circulatory system (principal); I77.9 Disorder of arteries and arterioles, unspecified; I73.9 Peripheral vascular disease, unspecified; L97.219 Non-pressure chronic ulcer of right calf with unspecified severity; L97.519 Non-pressure chronic ulcer of other part of right foot with unspecified severity; L97.819 Non-pressure chronic ulcer of other part of right lower leg with unspecified severity; E11.51 Type 2 diabetes mellitus with diabetic peripheral angiopathy without gangrene; Z79.82 Long term (current) use of aspirin; Z88.0 Allergy status to penicillin; Z88.1 Allergy status to other antibiotic agents; Z88.2 Allergy status to sulfonamides